=== PATIENT | female | born 1945 | race Caucasian/White ===

== ENCOUNTER 2022-12-10 15:56 | Outpatient (CLI) | payer MEDICARE, SELFPAY ==
[2022-12-10 16:34] LABS: Basophils Absolute Auto 0.1 K/mm3 (0.0-0.1); Eosinophils Absolute Auto 0.3 K/mm3 (0-0.3); Eosinophils Percent Auto 4.9 % (0-4.4); Hematocrit 40.4 % (37.0-47.0); Hemoglobin 12.7 g/dL (12.0-15.0); Immature Granulocyte Absolute 0.03 K/mm3 (0.00-0.031); Immature Granulocyte Percent A 0.4 % (0-0.5); Lymphocytes Absolute Auto 1.79 K/mm3 (0.9-3.2); Lymphocytes Percent Auto 26.8 % (18.3-44.2); Mean Corpuscular HGB Conc 31.4 g/dl (32-36); Mean Corpuscular Hemoglobin 28.3 pg (26-34); Mean Platelet Volume 10.9 fl (7.4-10.4); Monocytes Absolute Auto 0.6 K/mm3 (0.1-0.6); Monocytes Percent Auto 9.6 % (2.6-8.5); Neutrophils Absolute Auto 3.8 K/mm3 (1.3-6.7); Neutrophils Percent Auto 57.3 % (45.5-73.1); Platelet Count Result 299 k/mm3 (150-375); Red Blood Count 4.49 M/mm3 (4.2-5.4); Red Cell Distribution Width 16.1 % (11.5-14.5); White Blood Count 6.7 K/mm3 (4.5-10.0)
[2022-12-10 16:48] LABS: Hemoglobin A1C 5.7 % (<5.7)
[2022-12-10 17:00] LABS: Alanine Aminotransferase 18 U/L (6-35); Albumin Level 4.1 g/dL (3.5-5.1); Alkaline Phosphatase 62 U/L (38-126); Anion Gap 8 mmol/L (8-16); Aspartate Amino Transferase 38 U/L (14-36); Bilirubin,Total 0.6 mg/dL (0.2-1.3); Blood Urea Nitrogen 16 mg/dL (7-17); Calcium 9.6 mg/dL (8.4-10.2); Carbon Dioxide 27 mmol/L (22-30); Chloride 103 mmol/L (98-107); Cholesterol 261 mg/dL (0-200); Estimated Glomerular Filt Rate 54; Glucose 101 mg/dL (65-110); HDL Direct 50 mg/dL; Potassium 3.9 mmol/L (3.4-5.0); Sodium 138 mmol/L (137-145); Triglycerides 173 mg/dL (<150)
[2022-12-10 17:14] LABS: LDL Cholesterol Direct 145 mg/dL
[2022-12-10 17:29] LABS: Free T4 Free Thyroxine 1.07 ng/mL (0.78-2.19); Vitamin D 25 Hydroxy 24.9 ng/mL
[2022-12-10 18:06] LABS: Folic Acid 8.3 ng/mL (2.76->20)
== END 2022-12-10 15:57 | disposition home or self-care (01) ==
LOC: ANHLAB 15:59
PROVIDERS: PCP Internal Medicine; Visit Provider Internal Medicine
DX: Z13.29 Encounter for screening for other suspected endocrine disorder (principal); Z79.899 Other long term (current) drug therapy; E11.9 Type 2 diabetes mellitus without complications; Z13.220 Encounter for screening for lipoid disorders; E55.9 Vitamin D deficiency, unspecified; E53.8 Deficiency of other specified B group vitamins; N39.0 Urinary tract infection, site not specified; R30.0 Dysuria
CPT/HCPCS: 36415; 80053; 80061; 82306; 82607; 82746; 83036; 84439; 84443; 85025; 87077; 87086; 87186

== ENCOUNTER 2022-12-26 12:23 | Outpatient (RCR) | payer MEDICARE, SELFPAY ==
[2022-12-26 14:22] VITALS: BMI 46.6
== END 2023-03-17 11:58 | disposition home or self-care (01) ==
LOC: ANHWOC 12:23
PROVIDERS: PCP Internal Medicine; Visit Provider Internal Medicine
DX: I83.009 Varicose veins of unspecified lower extremity with ulcer of unspecified site (principal); L97.909 Non-pressure chronic ulcer of unspecified part of unspecified lower leg with unspecified severity
CPT/HCPCS: 99213; A9270; G0463

== ENCOUNTER 2023-04-03 16:31 | Inpatient (IN) | payer MEDICARE, SELFPAY ==
[2023-04-03] VITALS (13 sets, daily range): BP systolic 113–171; BP diastolic 66–83; PULSE 90–109; RESP 16–26; TEMP 36.7–37.6; O2SAT 90–100
--- NOTE | ~2023-04-03 | XR_ITS ---
EXAMINATION: XR chest 1V portable DATE: 04/03/2023 17:23 INDICATION: Coarse breath sounds. TECHNIQUE: frontal view of the chest was obtained. COMPARISON: Chest radiograph head CT dated 12/26/2003 FINDINGS: Coarse opacities in the infrahilar bilateral lower lung zones which could represent atelectasis pneum onia or mild pulmonary edema. No pleural effusion or pneumothorax. The cardiomediastinal silhouette i s within normal limits for AP technique. IMPRESSION: 1. Opacities at the infrahilar bilateral lower lung zones which could represent atelectasis, pneumoni a or mild pulmonary edema. Reviewed, dictated and finalized at location A. RDINGS LIBRARIAN IMPRESSION: 1. Opacities at the infrahilar bilateral lower lung zones which could represent atelectasis, pneumonia or mild pulmonary edema.
--- NOTE | ~2023-04-03 | CT_ITS ---
EXAMINATION: CT abdomen pelvis w con DATE: 04/03/2023 18:33 INDICATION: Abdominal distention. TECHNIQUE: Computed tomography (CT) of the abdomen and pelvis was performed with 100 mL Omnipaque 350 intravenous contrast. Automated exposure control and iterative reconstruction technique were employe d. The dose-length product was 1551.41 mGy-cm. COMPARISON: CT 02/28/2009 FINDINGS: The visualized portions of the lung bases demonstrate smooth septal thickening, consistent with mild pulmonary edema. There is mild atelectasis bilaterally. Cardiomegaly is noted. No pericardi al effusion. There are coronary artery calcifications. 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 There is mild right hilar lymphadenopathy. There is a small sliding hiatal herni a. The liver is normal. There are changes of cholecystectomy. The liver, pancreas, and adrenal glands are normal. There is cortical thinning of the kidneys. There is calcified atherosclerosis of the aor ta and many of the other arteries. There are no dilated loops of bowel. The appendix is normal. There is mild bilateral external iliac and right, right common iliac, and aortocaval lymphadenopathy. For example, an aortocaval node measures 19 x 14 mm. There is no free intraperitoneal fluid. There is sev ere lumbar spondylosis. There are bridging endplate osteophytes at multiple levels in the spine, cons istent with diffuse idiopathic skeletal hyperostosis (DISH). IMPRESSION: 1. Mild pelvic and right hilar lymphadenopathy, which may be reactive lymphadenopathy or lymphoma. 2. Mild pulmonary edema. 3. Small sliding hiatal hernia. Reviewed, dictated and finalized at location E. LEWARE CONSULTANT IMPRESSION: 1. Mild pelvic and right hilar lymphadenopathy, which may be reactive lymphaden opathy or lymphoma. 2. Mild pulmonary edema. 3. Small sliding hiatal hernia.
--- NOTE | ~2023-04-03 | CT_ITS ---
EXAMINATION: CTA chest PE protocol DATE: 04/03/2023 21:19 INDICATION: Hypoxia. TECHNIQUE: Computed tomography angiography (CTA) of the chest was performed with 100 mL Omnipaque-350 intravenous contrast timed to evaluate the pulmonary arteries. Coronal maximum intensity projection 3D-reconstructions were created by the technologist. Automated exposure control and iterative reconst ruction technique were employed. The dose-length product was 877.14 mGy-cm. COMPARISON: Head CT 12/26/2003 FINDINGS: There are smooth septal thickening and groundglass opacities in the lungs, consistent mild pulmonary edema. There is mild atelectasis bilaterally. No pleural effusion. Cardiomegaly is noted. T here are coronary artery calcifications. No pericardial effusion. The central pulmonary arteries are enlarged, consistent with pulmonary arterial hypertension. There is no pulmonary embolus. There is a small sliding hiatal hernia. There are changes of cholecystectomy. There are bridging endplate osteop hytes at multiple levels in the spine, consistent with diffuse idiopathic skeletal hyperostosis (DISH ). IMPRESSION: 1. No pulmonary embolus. Sensitivity is moderately decreased by motion artifact. 2. Mild pulmonary edema. Reviewed, dictated and finalized at location E. KING WHEEL TENDER IMPRESSION: 1. No pulmonary embolus. Sensitivity is moderately decreased by motion artifact . 2. Mild pulmonary edema.
--- NOTE | ~2023-04-03 | XR_ITS ---
EXAMINATION: XR tibia fibula RT 2V DATE: 04/03/2023 17:23 INDICATION: Right lower leg osteomyelitis. TECHNIQUE: 2 views of right tibia and fibula on 4 radiographs were obtained. COMPARISON: None. FINDINGS: There is varus angulation at the knee. No fracture. There is severe right knee osteoarthrit is. There is moderate midfoot osteoarthritis. There is a skin defect involving the lower leg. IMPRESSION: 1. No evidence of osteomyelitis. 2. Polyarticular osteoarthritis. Reviewed, dictated and finalized at location E. NISTRATIVE REPRESENTATIVE
--- NOTE | ~2023-04-03 | US_ITS ---
EXAMINATION: US venous doppler [facility] DATE: 04/05/2023 16:03 INDICATION: swelling/pain/erythema/elevated DDIMER . TECHNIQUE: Grayscale images without and with compression and Doppler images of the bilateral lower ex tremity veins were obtained. COMPARISON: 02/13/2009 FINDINGS: Poor visualization of the right calf veins due to edema. The right common femoral vein, profunda (juliann p) femoral vein, femoral vein, popliteal vein, and greater saphenous vein are patent. Enlarged lymph node in the right thigh. Poor visualization of the left calf veins due to edema. The left common femoral vein, profunda (deep) femoral vein, femoral vein, popliteal vein, and greater saphenous vein are patent. IMPRESSION: Limited visualization of the bilateral calf veins. Otherwise patent bilateral lower extremity veins. Enlarged lymph node in the right thigh. Reviewed, dictated and finalized at location K. INE SHOP SUPERVISOR IMPRESSION: Limited visualization of the bilateral calf veins. Otherwise patent bilateral l ower extremity veins. Enlarged lymph node in the right thigh.
--- NOTE | 2023-04-03 16:44 | ECG_ITS ---
Measurements Intervals [place] Rate: 104 P: -46 ND: 275 QRS: -42 QRSD: 109 T: 97 QT: 378 QTc: 498 Interpretive Statements SINUS TACHYCARDIA LEFT AXIS DEVIATION LEFT ATRIAL ENLARGEMENT ANTEROSEPTAL INFARCT, AGE INDETERMINATE CONSIDER INFERIOR INFARCT, AGE INDETERMINATE BORDERLINE ST-T WAVE ABNORMALITY- ANTEROLAT/HIGH LAT LEADS BASELINE ARTIFACT- I, II, III, AVR, AVL, AVF, V1-V6 ABNORMAL ECG NO PREVIOUS ECG AVAILABLE FOR COMPARISON Electronically Signed On 04-03-2023 18:57:15 JAVA SYSTEMS ANALYST by Antonio Lopez D.O.
--- NOTE | 2023-04-03 16:49 | ED.AMS ---
HPI - Altered Mental Status General Chief Complaint: Altered Mental Status Stated Complaint: ams Source: patient Mode of arrival: EMS Limitations: altered mental status History of Present Illness HPI narrative: Pt presents with report of altered mental status. Per RN, had told EMS she was more confused and was having difficulty walking with her walker. EMS had stated there was a complaint of nausea and vomiting. Patient states she has a history of diabetes. States her has not been sick. BS reported to have been 201. Patient smelled of foul smell of urine. She denies a history of heart failure but she is limited in her ability to tell health history. Denies being short of breath. Related Data Home Medications Medication Instructions Recorded Confirmed cholecalciferol (vitamin D3) 50 50 mcg PO MONTHLY 12/18/22 04/04/23 mcg (2,000 unit) capsule diphenhydramine HCl 25 mg tablet 12.5 mg PO PRN PRN Itching 01/07/23 04/04/23 (Benadryl Allergy) tramadol 50 mg tablet 50 mg PO Q4-6H PRN Pain 02/11/23 04/04/23 Allergies Allergy/AdvReac Type Severity Reaction Status Date / Time Sulfa (Sulfonamide AdvReac Intermediate Rash Verified 01/20/23 13:05 Antibiotics) 1 GENERAL ANESTHISIA LAST Allergy Unknown Other Uncoded 01/20/23 13:05 2 SURGS [facility] Past Medical History Medical History Benign essential hypertension Body mass index (BMI) 45.0-49.9, adult Change in heart murmur DJD (degenerative joint disease), multiple sites DM type 2 (diabetes mellitus, type 2) Encounter to establish care Essential hypertension Follow up Hyperlipidemia Hypothyroidism (acquired) On shelter drug therapy PHYLICIA on CPAP Pedal edema Stasis ulcer UTI (urinary tract infection) Vitamin D deficiency Surgical History Surgical History History of prolapse of bladder Family History Family History Mother Hypertension, Onset Age: 70 Cerebrovascular accident Patient's mother is Sibling Carcinoma of colon Other Family history of arthritis Family history of coronary artery disease Social History Social History Smoking status: Never smoker Second hand tobacco smoke exposure: No Smoking end date: 03/10/89 Alcohol intake: never Substance use: never Do You Feel Safe in your Home?: Yes Lack of Transportation: No Lack of Food: Never True Current Housing: I Have Housing Concerned About Future Housing: No Difficulty Paying Gas/Electric Bills: No Difficulty Paying for Meds: No Currently Unemployed: No Education: Don't Know Difficulty w/ Childcare or Family Care: No Spiritual care concerns: No Exam Narrative: GENERAL: well-nourished, and in no acute distress. HEAD: Normocephalic, atraumatic. EYES: Non injected, non icteric ENT: Nares clear, no rhinorrhea or epistaxis. NECK: Supple. CHEST: No respiratory distress. Coarse bilateral breath sounds though full assessment limited due to body habitus (unable to initially listen posteriorly) HEART: Regular rate and rhythm. . ABDOMEN: Soft, obese/ distended with some epigastric firmness but without guarding or rigidity on palpation EXTREMITIES: Legs initially bandaged, dressings taken down. Bilateral lower extremity edema and venous stasis with woody anterior aspect. Large posterior ulceration along right calf with foul smelling purulent drainage. SKIN: Warm, dry. NEURO: No focal deficits. Alert and oriented to self and location; states year is 2022. PSYCH: Normal mood and affect. Course Vital Signs Vital signs: Vital Signs Pulse Rate 93 04/03/23 16:30 Respiratory Rate 26 H 04/03/23 16:30 Blood Pressure 113/83 04/03/23 16:30 Pulse Oximetry 97 04/03/23 16:30 Oxygen Delivery Room
--- NOTE | 2023-04-03 17:13 | PC.NURSE ---
Pts glucose was 153
[2023-04-03 17:17] LABS: Glucose Point of Care 153 mg/dl (65-105)
[2023-04-03 17:36] LABS: Hematocrit 39.7 % (37.0-47.0); Hemoglobin 12.3 g/dL (12.0-15.0); Mean Corpuscular Hemoglobin 27.7 pg (26-34); Mean Corpuscular Volume 89.4 fl (80-100); Mean Platelet Volume 11.2 fl (7.4-10.4); Platelet Count Result 282 k/mm3 (150-375); Red Blood Count 4.44 M/mm3 (4.2-5.4); Red Cell Distribution Width 14.3 % (11.5-14.5); White Blood Count 21.6 K/mm3 (4.5-10.0)
[2023-04-03 17:48] LABS: Ammonia < 9 umol/L (9-30)
[2023-04-03 17:50] LABS: INR 1.1; Partial Thromboplastin Time 34.1 SECONDS (22.3-36.8)
[2023-04-03 17:55] LABS: Band Neutrophils Percent 10 % (0-6); Lymphocytes Absolute Manual 0.86 K/mm3 (1.1-4.5); Lymphocytes Percent Manual 4 % (18-44); Monocytes Absolute Manual 1.08 K/mm3 (0.1-0.90); Monocytes Percent Manual 5 % (3-9); Neutrophils Absolute Manual 19.65 K/mm3 (1.7-7.2); Neutrophils Percent Manual 81 % (46-73); Total Cells Counted 100
[2023-04-03 17:56] LABS: Hypochromasia 1+ (NORMAL); Large Platelets Present; Ovalocytes 1+ (NORMAL); Platelet Estimate Adequate (Adequate); Schistocytes None Seen (NORMAL)
[2023-04-03 17:58] LABS: Appearance Urine Turbid (Clear); Bacteria Urine 4+ /hpf; Bilirubin Urine Negative (Negative); Blood Urine 3+ (Negative); Color Urine Yellow (Yellow); Glucose Urine UA 3+ mg/dL (Negative); Ketones Urine 1+ mg/dL (Negative); Leukocyte Esterase Ur 2+ LEU/UL (Negative); Need Manual Microscopic Reviewed; Nitrate Urine Positive (Negative); Protein Urine 2+ mg/dL (Negative); Specific Grav Ur 1.031 (1.001-1.035); Squamous Epithelial Cell Urine Few /hpf (Few); Urobilinogen Urine 0.2 mg/dL (<2.0); WBC Clumps Urine Present /HPF; WBC Urine >100 /hpf; pH Urine 6.5 (5.0-9.0)
[2023-04-03 18:00] LABS: NT Pro B Type Natriuretic Pept 3320 pg/mL (19.9-100)
[2023-04-03 18:01] LABS: Add Urine Microscopic? YES
[2023-04-03 18:14] LABS: Alanine Aminotransferase 20 U/L (6-35); Albumin Level 3.9 g/dL (3.5-5.1); Alkaline Phosphatase 66 U/L (38-126); Anion Gap 11 mmol/L (8-16); Aspartate Amino Transferase 36 U/L (14-36); Bilirubin,Total 0.8 mg/dL (0.2-1.3); Blood Urea Nitrogen 16 mg/dL (7-17); Calcium 9.6 mg/dL (8.4-10.2); Carbon Dioxide 24 mmol/L (22-30); Chloride 101 mmol/L (98-107); Estimated CRCL calculation 49 ml/min; Estimated Glomerular Filt Rate 48; Glucose 175 mg/dL (65-110); Potassium 4.2 mmol/L (3.4-5.0); Sodium 136 mmol/L (137-145)
[2023-04-03 18:20] LABS: Influenza A QL RT-PCR Negative (Negative); Influenza B QL RT-PCR Negative (Negative); RSV RNA, RT-PCR Negative (Negative); SARS-CoV-2 RNA PCR Negative (Negative)
[2023-04-03 18:29] LABS: Erythrocyte Sedimentation Rate 59 mm/hr (0-20)
[2023-04-03] MEDS: FUROSEMIDE INJ 40 MG/4 ML VIAL IV PUSH (18:38)
--- NOTE | 2023-04-03 20:09 | PM.IMHP ---
H&P: HPI History of Present Illness Date/Time: 04/03/23 20:09 Chief Complaint: Altered metal Status Narrative: Patient is a 77-year-old female who presented to the ED for altered mental status. I am not sure how long this has been going on however symptoms seems to have been present for couple of days. ER reported limited history as patient is confused. She was evaluated in the ER and found to have leukocytosis of greater than 20,000, with absolute neutrophilia, UA is suggestive for UTI with positive nitrites, leukocyte esterase and greater than 100 wbc's and 4+ of active. She also has proBNP greater than [address] abdomen and pelvis showing possible pulmonary edema on lung bases. Patient has bilateral lower extremity venous stasis with stasis dermatitis and infected ulcer on the posterior right lower extremity. She was given ceftriaxone 1 g IV and furosemide 40 mg 1 time IV. I was consulted to admit this patient for further evaluation and management. Review of Systems Review of Systems: All systems reviewed & are unremarkable except as noted in HPI and below PMFSH Past Medical History Medical History (Updated 04/03/23 @ 20:15 by Merry Zamorano MD) Benign essential hypertension Body mass index (BMI) 45.0-49.9, adult Change in heart murmur DJD (degenerative joint disease), multiple sites DM type 2 (diabetes mellitus, type 2) Encounter to establish care Essential hypertension Follow up Hyperlipidemia Hypothyroidism (acquired) [facility] drug [facility] PHYLICIA on CPAP Pedal edema Stasis ulcer UTI (urinary tract infection) Vitamin D deficiency Surgical History Surgical History History of prolapse of bladder Family History Family History Mother Hypertension, Onset Age: 70 Cerebrovascular accident Patient's mother is Sibling Carcinoma of colon Other Family history of arthritis Family history of coronary artery disease Social History Social History Smoking status: Never smoker Second hand tobacco smoke exposure: No Smoking end date: 03/10/89 Alcohol intake: never Substance use: never Do You Feel Safe in your Home?: Yes Lack of Transportation: No Lack of Food: Never True Current Housing: I Have Housing Concerned About Future Housing: No Difficulty Paying Gas/Electric Bills: No Difficulty Paying for Meds: No Currently Unemployed: No Education: Don't Know Difficulty w/ Childcare or Family Care: No Spiritual care concerns: No Meds Home Medications and Allergies Home Medications Medication Instructions Recorded Confirmed Type cholecalciferol (vitamin D3) 50 50 mcg PO MONTHLY 12/18/22 04/04/23 History mcg (2,000 unit) capsule collagenase clostridium histo. 250 1 applic topical DAILY #90 grams 01/07/23 04/04/23 Rx unit/gram topical ointment (Santyl) diphenhydramine HCl 25 mg tablet 12.5 mg PO PRN PRN Itching 01/07/23 04/04/23 History (Benadryl Allergy) meloxicam 15 mg tablet 15 mg PO DAILY #90 tabs 01/14/23 04/04/23 Rx lisinopril 10 1 tablet PO DAILY #90 tabs 01/20/23 04/04/23 Rx mg-hydrochlorothiazide 12.5 mg tablet pravastatin 80 mg tablet 80 mg PO DAILY #90 tabs 01/20/23 04/04/23 Rx dapagliflozin propanediol 5 mg 5 mg PO DAILY #30 tabs 01/28/23 04/04/23 Rx tablet (Farxiga) tramadol 50 mg tablet 50 mg PO Q4-6H PRN Pain 02/11/23 04/04/23 History levothyroxine 200 mcg tablet 200 mcg PO DAILY #90 tabs 03/04/23 04/04/23 Rx clotrimazole-betamethasone 1 1 applic topical DAILY #45 grams 04/03/23 04/04/23 Rx %-0.05 % topical cream Allergies Allergy/AdvReac Type Severity Reaction Status Date / Time Sulfa (Sulfonamide AdvReac Intermediate Rash Verified 01/20/23 13:05 Antibiotics) 1 GENERAL ANESTHISIA LAST Allergy Unknown Other Uncoded 01/20/23 13:0
[2023-04-03 20:23] LABS: Lactic Acid Reflex 2.2 mmol/L (0.7-2.0)
[2023-04-03] MEDS: PIPERACILLN/TAZ 3.375GM/NS50ML 3.375 GM/50 ML BAG IVPB (20:29)
[2023-04-03 20:34] LABS: D Dimer 2.27 ug/mL (<0.48)
[2023-04-03 20:44] LABS: Magnesium 1.5 mg/dL (1.6-2.3)
[2023-04-03] MEDS: VANCOMYCIN 1,250 MG/NS 250 ML 1,250 MG/250 ML BAG 166.67 MG IVPB ×2 (20:52→23:07)
[2023-04-03 22:13] LABS: MRSA (PCR) DETECTED (NOT DETECTE)
[2023-04-03] MEDS: MAGNESIUM SULF 1 GM/D5W 100 ML 1 GM/100 ML BAG IVPB (22:34)
[2023-04-03 23:03] LABS: Lactic Acid Reflex 2.7 mmol/L (0.7-2.0)
[2023-04-03 23:08] LABS: Reflex Lactic Acid Yes or No Add Lactic
[2023-04-03 23:36] LABS: Glucose Point of Care 148 mg/dl (65-105)
--- NOTE | 2023-04-03 23:54 | ADMGEN ---
This patient, Racheal North, was admitted to Medical Room 345-. Patient/family oriented to hospital policies and general routines including ID bracelet, bed and alarms, visiting hours, pain management, procedures, bathroom and other care routines, personal items, smoking policy, room service/diet, and visiting hours. Information on how to activate the Rapid Response Team has been discussed. Patient/Family are encouraged to report perceived risks to care and to ask questions if they do not understand what they are told or what they should do.
[2023-04-04] VITALS (17 sets, daily range): BP systolic 121–147; BP diastolic 57–71; PULSE 72–105; RESP 16–21; TEMP 36.7–37.1; O2SAT 93–100; BMI 75.7
--- NOTE | 2023-04-04 | ECHO_ITS ---
Patient Info Name: Racheal North Age: 77 years : 1945 Gender: Female Ht: 63 in Wt: 260 lbs BSA: 2.36 m2 HR: 83 bpm BP: 121 / 62 mmHg Heart Rhythm: Sinus Rhythm Technical Quality: Fair Exam Date: 04/04/2023 10:56 AM Exam Location: Echo Lab Patient Status: Inpatient Admit Date: 04/03/2023 Staff Ordering Physician: Keesha Dupree APRN Lens Polisher: Jeanne Sauceda RDCS Attending Provider: Merry Zamorano MD Referring Physician: Joon MAYER; Exam Type: CA echo dop color flow w con Study Info Indications - pul edema, chf Complete two-dimensional, color flow and Doppler transthoracic echocardiogram is performed with contrast to opacify the left ventricle and to improve the deliniation of the left ventricle endocardial borders. Contrast/Agitated Saline Contrast/Ag. Saline: Definity Amount: 3.00 ml Summary 1. Technically somewhat challenging echo given patient's obesity. 2. Overall normal left ventricular systolic function with preserved systolic function and grade 1 diastolic noncompliance. 3. Sclerotic aortic valve which is not ideally visualized but by Doppler is stenotic with a valve area 1.0 cm2. 4. No aortic regurgitation. 5. Calcified mitral annulus. Left Ventricle Left ventricular chamber dimension is normal. Left ventricular systolic function is normal, estimated at 60-65%. There is moderate concentric increased left ventricular wall thickness. The left ventricular diastolic function is grade I diastolic dysfunction. Right Ventricle Right ventricular chamber dimension is normal. Left Atria Left atrial chamber dimension is normal. Right Atria Right atrial chamber dimension is normal. Aortic Valve The aortic valve is trileaflet. There is moderate aortic valve sclerosis. There is moderate to severe aortic valve stenosis with a peak velocity of 273.76 cm/s, mean gradient of 17 mmHg, and aortic valve area of 0.98 cm2. Pulmonic Valve The pulmonic valve is not well visualized. Mitral Valve The mitral valve has normal leaflets. The mitral valve annulus is mildly calcified. Tricuspid Valve The tricuspid valve leaflets are normal. Pericardium/Pleural The pericardium appears normal. Aorta The aortic root size at the sinus of Valsalva is normal. Left Ventricular Outflow Tract Name Value Normal LVOT 2D LVOT Diameter 1.84 cm LVOT Doppler LVOT Peak Gradient 3 mmHg LVOT Mean Gradient 2 mmHg LVOT VTI 19.64 cm LVOT VTI/AV VTI Ratio 0.37 LVOT Stroke Volume 52.33 ml LVOT CO 5.72 l/min LVOT CI 2.42 L/min/m2 Pulmonic Valve Name Value Normal RVOT Doppler RVOT Peak Gradient 5 mmHg PV Doppler
[2023-04-04] MEDS: MAGNESIUM SULF 2 GM/WATER 50ML 2 GM/50 ML BAG IVPB (00:08)
[2023-04-04] MEDS: PIPERACILLN/TAZ 3.375GM/NS50ML 3.375 GM/50 ML BAG IVPB ×2 (02:23→11:47)
[2023-04-04] MEDS: SODIUM CHLORIDE 0.9% IV 1,000 ML 999 ML IV CONT (04:16)
[2023-04-04 06:01] LABS: Basophils Absolute Auto 0.1 K/mm3 (0.0-0.1); Basophils Percent Auto 0.2 % (0.2-1.2); Hematocrit 33.4 % (37.0-47.0); Hemoglobin 10.7 g/dL (12.0-15.0); Immature Granulocyte Absolute 0.15 K/mm3 (0.00-0.031); Immature Granulocyte Percent A 0.7 % (0-0.5); Lymphocytes Absolute Auto 0.82 K/mm3 (0.9-3.2); Lymphocytes Percent Auto 3.6 % (18.3-44.2); Mean Corpuscular Hemoglobin 27.9 pg (26-34); Mean Corpuscular Volume 87.2 fl (80-100); Mean Platelet Volume 11.6 fl (7.4-10.4); Monocytes Percent Auto 4.5 % (2.6-8.5); Neutrophils Absolute Auto 20.6 K/mm3 (1.3-6.7); Platelet Count Result 249 k/mm3 (150-375); Red Blood Count 3.83 M/mm3 (4.2-5.4); Red Cell Distribution Width 14.2 % (11.5-14.5); White Blood Count 22.7 K/mm3 (4.5-10.0)
[2023-04-04 06:34] LABS: Anion Gap 9 mmol/L (8-16); Blood Urea Nitrogen 17 mg/dL (7-17); Calcium 8.5 mg/dL (8.4-10.2); Carbon Dioxide 23 mmol/L (22-30); Chloride 101 mmol/L (98-107); Estimated CRCL calculation 58 ml/min; Estimated Glomerular Filt Rate 40; Glucose 158 mg/dL (65-110); Potassium 3.5 mmol/L (3.4-5.0); Sodium 133 mmol/L (137-145)
[2023-04-04 06:45] LABS: Platelet Estimate Adequate (Adequate)
[2023-04-04 06:46] LABS: Hypochromasia 1+ (NORMAL); Ovalocytes 1+ (NORMAL); Schistocytes None Seen (NORMAL)
[2023-04-04 06:55] LABS: Magnesium 2.1 mg/dL (1.6-2.3)
[2023-04-04 06:56] LABS: Lactic Acid Reflex 2.4 mmol/L (0.7-2.0)
[2023-04-04 08:17] LABS: Hemoglobin A1C 6.7 % (<5.7)
[2023-04-04] MEDS: IPRATROPIUM 0.5 MG/ALBUTEROL SULFATE 2.5 MG AMPUL.NEB 3 ML INHALATION ×3 (08:26→20:16)
[2023-04-04 08:35] LABS: Glucose Point of Care 128 mg/dl (65-105)
[2023-04-04 11:17] LABS: Lactic Acid Reflex 2.4 mmol/L (0.7-2.0)
[2023-04-04] MEDS: PERFLUTREN LIPID MICROSPHERES 1.5 ML VIAL DILUTED TO 10 ML TOTAL VOLUME IV PUSH (11:35)
[2023-04-04] MEDS: CHOLECALCIFEROL 1,000 UNITS TABLET 2000 UNITS PO (11:43)
[2023-04-04] MEDS: PRAVASTATIN SODIUM 20 MG TABLET 80 MG PO (11:43)
[2023-04-04] MEDS: EMPAGLIFLOZIN 10 MG TABLET BY MOUTH (11:44)
[2023-04-04] MEDS: PANTOPRAZOLE 40 MG TABLET PO (11:45)
[2023-04-04] MEDS: FUROSEMIDE INJ 40 MG/4 ML VIAL IV PUSH ×2 (11:46→17:16)
[2023-04-04] MEDS: ENOXAPARIN 40 MG/0.4 ML SYRINGE SUB-Q (11:46)
--- NOTE | 2023-04-04 11:49 | IVDEFINITY ---
Prior to administration of IV Definity the patient was educated on the risks and benefits of the imaging enhancing agent including potential adverse side effects. The patient verbalized understanding. Allergies were verified. No exclusion criteria were identified and at least one of the following inclusion criteria were met: 1) physician request, 2) patient technically difficult to image (per the [place] [employer] Echocardi[employer] guidelines of two or more segments not discernable within the apical view), or 3) questionable left ventricular function. ?
[2023-04-04] MEDS: hydroCHLOROthiazide 12.5 MG CAPSULE PO (11:52)
[2023-04-04] MEDS: lisinopriL 10 MG TABLET PO (11:52)
[2023-04-04 12:28] LABS: Glucose Point of Care 143 mg/dl (65-105)
--- NOTE | 2023-04-04 13:57 | PM.IMPN ---
Progress Note: A&P Assessment and Plan (1) Altered mental status: Qualifiers: Altered mental status type: disorientation Qualified Code(s): R41.0 - Disorientation, unspecified Code(s): R41.82 - Altered mental status, unspecified Status: Acute (2) UTI (urinary tract infection): Qualifiers: Urinary tract infection type: acute cystitis Hematuria presence: without hematuria Qualified Code(s): N30.00 - Acute cystitis without hematuria Code(s): N39.0 - Urinary tract infection, site not specified Status: Acute (3) Foot ulcer, right: Qualifiers: Non-pressure ulcer stage: limited to breakdown of skin Qualified Code(s): L97.511 - Non-pressure chronic ulcer of other part of right foot limited to breakdown of skin Code(s): L97.519 - Non-pressure chronic ulcer of other part of right foot with unspecified severity Status: Acute (4) Severe sepsis with acute organ dysfunction: Code(s): A41.9 - Sepsis, unspecified organism; R65.20 - Severe sepsis without septic shock Status: Acute (5) Congestive heart failure (CHF): Code(s): I50.9 - Heart failure, unspecified Status: Acute Plan Severe Sepsis without septic shock -Secondary to UTI -empiric IV antibiotic therapy -Monitor lactic acid levels q6hr. still 2.4 trending flat -Repeat CBC, CMP. -Two sets of blood cultures gram+ cocci in chains -urine cultures pending previous ESBL -C-reactive proteins elevated -ESR >50 -PTT and PT, INR. -TTE chf/bacteremia -CTA pulmonary edema negative for PE. -Monitor albumin, monitoring of mental status. -glucose monitoring and control UTI -Urine cultures and blood cultures gram+ cocci -Continue IV hydration. = -Monitor vital signs. -Vanc/cefepime Bacteremia -gram + cocci in chains -likely secondary from UTI -cefepime/vanc MRSA+ nares will de-escalate pending cultures -I&D following -TTE pending R/O endocarditis CHF -Unknown type pending Echo -Murmur noted -pBNP >3000 -cardiology consulted -IV Lasix b.i.d. -monitor renal function during diuresis -echocardiogram pending -EKG -cTA pulmonary edema -incentive spirometer while awake -Lipid panel, TSH, liver function test. -Optimize Sandro inhibitors, beta-blockers, ARNI -Daily weight. -fluid restriction -Optimize blood pressure less than 130/80. -Fall risk assessment. Acute on chronic renal failure -pre-renal -Gentle IV hydration. -unknown baseline previous admission Cr 1.00 -Avoid nephrotoxic drugs. -Monitor antihypertensive drug therapy. -Routine CMP monitoring GFR. -Monitor electrolytes especially potassium. -Antibiotic doses depending on creatinine clearance. -Pharmacy does medications. -Cr trending up need to monitor closely may need to consult nephrology if worsens Diabetes -Accu-Cheks a.c. HS -new diagnosis -Hemoglobin A1c 6.7 -Diabetic diet -consult to dietitian -encourage lifestyle modifications and weight loss -Optimize Sandro inhibitors and statins. -Watch for hypoglycemia/hypoglycemic protocol ordered Venous stasis -BLE -elevated DDIMER -Venous dopplers pending -wound care consulted HTN -Stable -Resumed home medications -BP per protocol PHYLICIA -Resumed home CPAP settings Code status: Full code per patient DVT prophylaxis: Lovenox Stress ulcer prophylaxis: Protonix 40 daily PT/OT notes: PT/OT when stable to participate Disposition: Patient admitted to IMU for continued treatment of sepsis/CHF, patient with bacteremia may need terminal worker ABX therapy discharge planning will be determined once that is decided. Patient states she currently lives at home with her . -Patient's previous records reviewed on admission -ER notes reviewed in detail on admission -discussed all findings and current treatment plan with patient/Family/POA -Consultations reviewed for recommendations -Patient's disposition for
[2023-04-04 13:58] LABS: Reflex Lactic Acid Yes or No Add Lactic
[2023-04-04] MEDS: MEROPENEM 1 GM/NS 100 ML 1 GM/100 ML BAG IVPB ×2 (13:59→21:49)
[2023-04-04] MEDS: MORPHINE SULFATE (*CRX) 2 MG/ML INJ IV PUSH ×2 (14:17→20:16)
[2023-04-04] MEDS: LACTATED RINGERS 1,000 ML 75 ML IV CONT (14:25)
--- NOTE | 2023-04-04 15:09 | PM.CNCAR ---
Assessment and Plan Assessment and plan (1) Congestive heart failure (CHF): Code(s): I50.9 - Heart failure, unspecified Status: Acute Assessment and Plan: She is volume overloaded. Evidence of CHF with pulmonary edema noted on chest CTA, elevated NT proBNP. Likely diastolic in etiology. Agree with IV furosemide for now Fluid restriction Daily weights Strict intake and output BP control Echo is pending, further recommendations to follow (2) UTI (urinary tract infection): Qualifiers: Urinary tract infection type: acute cystitis Hematuria presence: without hematuria Qualified Code(s): N30.00 - Acute cystitis without hematuria Code(s): N39.0 - Urinary tract infection, site not specified Status: Acute Assessment and Plan: On abx per hospitalist (3) Hyperlipidemia: Qualifiers: Hyperlipidemia type: mixed hyperlipidemia Qualified Code(s): E78.2 - Mixed hyperlipidemia Code(s): E78.5 - Hyperlipidemia, unspecified Status: Acute Assessment and Plan: Continue statin (4) Essential hypertension: Code(s): I10 - Essential (primary) hypertension Status: Acute Assessment and Plan: Above goal. Will await echo results before altering antihypertensive regimen. (5) Murmur, heart: Code(s): R01.1 - Cardiac murmur, unspecified Status: Acute Assessment and Plan: This is not new. Echo pending. History of Present Illness History of Present Illness Consult date/time: 04/04/23 15:09 Reason For Visit: UTI,HF Exacerbation,Diabetic Ulcers/Wounds Narrative: Racheal North is a 77 year old female who states her only medical problem is diabetes. She presents to the hospital she states because her urged her to based on the fact that she was having trouble ambulating. According to her she was having difficulty ambulating because of pain and was unable to walk more than a couple of feet before having to rest. Cardiology is being asked to see her because of heart failure. She denies a history of any cardiac problems including heart failure but she is aware that she has a cardiac murmur and has been aware of that for many years. She denies any shortness of breath, palpitations, chest pain. She does have significant edema. Review of Systems Review of Systems: All systems reviewed & are unremarkable except as noted in HPI and below PMFSH Past Medical History Medical History Benign essential hypertension Body mass index (BMI) 45.0-49.9, adult Change in heart murmur DJD (degenerative joint disease), multiple sites DM type 2 (diabetes mellitus, type 2) Encounter to establish care Essential hypertension Follow up Hyperlipidemia Hypothyroidism (acquired) On long term care administrator drug therapy PHYLICIA on CPAP Pedal edema Stasis ulcer UTI (urinary tract infection) Vitamin D deficiency Surgical History Surgical History History of prolapse of bladder Family History Family History Mother Hypertension, Onset Age: 70 Cerebrovascular accident Patient's mother is Sibling Carcinoma of colon Other Family history of arthritis Family history of coronary artery disease Social History Social History Smoking status: Never smoker Second hand tobacco smoke exposure: No Smoking end date: 03/10/89 Alcohol intake: never Substance use: never Do You Feel Safe in your Home?: Yes Lack of Transportation: No Lack of Food: Never True Current Housing: I Have Housing Concerned About Future Housing: No Difficulty Paying Gas/Electric Bills: No Difficulty Paying for Meds: No Currently Unemployed: No Education: Don't Know Difficulty w/ Childcare or Family Care: No
[2023-04-04 15:17] LABS: Lactic Acid 2.4 mmol/L (0.7-2.0)
[2023-04-04] MEDS: COLLAGENASE OINT 30 GM TUBE 1 APPLIC TOPICAL (16:12)
[2023-04-04] MEDS: BETAMETHASONE/CLOTRIMAZOLE CR 15 GM TUBE 1 APPLIC TOPICAL (16:12)
[2023-04-04 17:33] LABS: Glucose Point of Care 110 mg/dl (65-105)
[2023-04-04 18:10] LABS: Lactic Acid Reflex 1.5 mmol/L (0.7-2.0)
[2023-04-04] MEDS: VANCOMYCIN 1,500 MG/NS 500 ML 1,500 MG/500 ML BAG 250 MG IVPB (20:17)
[2023-04-05] VITALS (18 sets, daily range): BP systolic 110–148; BP diastolic 59–86; PULSE 74–101; RESP 18–23; TEMP 36.6–36.7; O2SAT 93–100
[2023-04-05] MEDS: IPRATROPIUM 0.5 MG/ALBUTEROL SULFATE 2.5 MG AMPUL.NEB 3 ML INHALATION ×3 (02:03→20:39)
[2023-04-05 03:52] LABS: Glucose Point of Care 127 mg/dl (65-105)
[2023-04-05] MEDS: WATER FOR IRRIGATION, STERILE 1,000 ML BOTTLE 1000 ML (04:45)
[2023-04-05 05:39] LABS: Basophils Absolute Auto 0.1 K/mm3 (0.0-0.1); Basophils Percent Auto 0.4 % (0.2-1.2); Eosinophils Percent Auto 0.2 % (0-4.4); Hemoglobin 9.9 g/dL (12.0-15.0); Immature Granulocyte Percent A 0.6 % (0-0.5); Lymphocytes Absolute Auto 1.18 K/mm3 (0.9-3.2); Lymphocytes Percent Auto 7.3 % (18.3-44.2); Mean Corpuscular HGB Conc 31.9 g/dl (32-36); Mean Corpuscular Hemoglobin 27.7 pg (26-34); Mean Corpuscular Volume 86.8 fl (80-100); Mean Platelet Volume 11.1 fl (7.4-10.4); Monocytes Absolute Auto 0.9 K/mm3 (0.1-0.6); Monocytes Percent Auto 5.8 % (2.6-8.5); Neutrophils Absolute Auto 13.8 K/mm3 (1.3-6.7); Neutrophils Percent Auto 85.7 % (45.5-73.1); Platelet Count Result 217 k/mm3 (150-375); Red Blood Count 3.57 M/mm3 (4.2-5.4); Red Cell Distribution Width 14.3 % (11.5-14.5); White Blood Count 16.1 K/mm3 (4.5-10.0)
[2023-04-05] MEDS: MEROPENEM 1 GM/NS 100 ML 1 GM/100 ML BAG IVPB ×3 (05:45→21:46)
[2023-04-05 05:50] LABS: Alanine Aminotransferase 21 U/L (6-35); Alkaline Phosphatase 66 U/L (38-126); Anion Gap 8 mmol/L (8-16); Aspartate Amino Transferase 53 U/L (14-36); Bilirubin,Total 0.5 mg/dL (0.2-1.3); Blood Urea Nitrogen 27 mg/dL (7-17); Calcium 8.3 mg/dL (8.4-10.2); Carbon Dioxide 25 mmol/L (22-30); Chloride 99 mmol/L (98-107); Estimated CRCL calculation 47 ml/min; Estimated Glomerular Filt Rate 31; Glucose 105 mg/dL (65-110); Potassium 3.3 mmol/L (3.4-5.0); Sodium 132 mmol/L (137-145)
[2023-04-05] MEDS: LACTATED RINGERS 1,000 ML 75 ML IV CONT (06:46)
--- NOTE | 2023-04-05 07:19 | PC.NURSE ---
0540: CPAP REMOVED AND OXYGEN PLACED ON PATIENT @ 2L.
[2023-04-05] MEDS: FUROSEMIDE INJ 40 MG/4 ML VIAL IV PUSH ×2 (08:45→16:49)
[2023-04-05] MEDS: ENOXAPARIN 40 MG/0.4 ML SYRINGE SUB-Q (08:45)
[2023-04-05] MEDS: lisinopriL 10 MG TABLET PO (08:45)
[2023-04-05] MEDS: PRAVASTATIN SODIUM 20 MG TABLET 80 MG PO (08:45)
[2023-04-05] MEDS: hydroCHLOROthiazide 12.5 MG CAPSULE PO (08:46)
[2023-04-05] MEDS: CHOLECALCIFEROL 1,000 UNITS TABLET 2000 UNITS PO (08:46)
[2023-04-05] MEDS: EMPAGLIFLOZIN 10 MG TABLET BY MOUTH (08:46)
[2023-04-05] MEDS: PANTOPRAZOLE 40 MG TABLET PO (08:46)
--- NOTE | 2023-04-05 12:21 | PM.IMPN ---
Progress Note: A&P Assessment and Plan (1) Altered mental status: Qualifiers: Altered mental status type: unspecified Qualified Code(s): R41.82 - Altered mental status, unspecified Code(s): R41.82 - Altered mental status, unspecified Status: Acute (2) UTI (urinary tract infection): Qualifiers: Urinary tract infection type: acute cystitis Hematuria presence: without hematuria Qualified Code(s): N30.00 - Acute cystitis without hematuria Code(s): N39.0 - Urinary tract infection, site not specified Status: Acute (3) Foot ulcer, right: Qualifiers: Non-pressure ulcer stage: limited to breakdown of skin Qualified Code(s): L97.511 - Non-pressure chronic ulcer of other part of right foot limited to breakdown of skin Code(s): L97.519 - Non-pressure chronic ulcer of other part of right foot with unspecified severity Status: Acute (4) Severe sepsis with acute organ dysfunction: Code(s): A41.9 - Sepsis, unspecified organism; R65.20 - Severe sepsis without septic shock Status: Acute (5) Murmur, heart: Code(s): R01.1 - Cardiac murmur, unspecified Status: Acute (6) Acute diastolic (congestive) heart failure: Code(s): I50.31 - Acute diastolic (congestive) heart failure Status: Acute Plan Severe Sepsis without septic shock -Secondary to UTI -empiric IV antibiotic therapy IV meropenem -Monitor lactic acid levels q6hr. 1.5 today -Repeat CBC, CMP. -Two sets of blood cultures Strep A isolate -urine cultures pending previous ESBL -C-reactive proteins elevated -ESR >50 -PTT and PT, INR. -TTE chf/bacteremia -CTA pulmonary edema negative for PE. -Monitor albumin, monitoring of mental status. -glucose monitoring and control UTI -Urine cultures ECOLI -Continue IV hydration. = -Monitor vital signs. -meropenem pending sensitivity Bacteremia -Strep A -likely secondary from UTI -meropenem -I&D following -TTE pending R/O endocarditis Acute Diastolic congestive heart failure -LVEF 65%, moderate aortic stenosis -Murmur noted -pBNP >3000 -cardiology consulted -IV Lasix b.i.d. -monitor renal function during diuresis -cTA pulmonary edema -incentive spirometer while awake -Lipid panel, TSH, liver function test. -Optimize Sandro inhibitors, beta-blockers, ARNI -Daily weight. -fluid restriction -Optimize blood pressure less than 130/80. -Fall risk assessment. Acute on chronic renal failure -pre-renal -Gentle IV hydration. -unknown baseline previous admission Cr 1.00 -Avoid nephrotoxic drugs. -Monitor antihypertensive drug therapy. -Routine CMP monitoring GFR. -Monitor electrolytes especially potassium. -Antibiotic doses depending on creatinine clearance. -Pharmacy does medications. -Cr trending flat Diabetes -Accu-Cheks a.c. HS -new diagnosis -Hemoglobin A1c 6.7 -Diabetic diet -consult to dietitian -encourage lifestyle modifications and weight loss -Optimize Sandro inhibitors and statins. -Watch for hypoglycemia/hypoglycemic protocol ordered Venous stasis -BLE -elevated DDIMER -Venous dopplers pending -wound care consulted HTN -Stable -Resumed home medications -BP per protocol PHYLICIA -Resumed home CPAP settings Code status: Full code per patient DVT prophylaxis: Lovenox Stress ulcer prophylaxis: Protonix 40 daily PT/OT notes: PT/OT when stable to participate Disposition: Patient admitted to IMU for continued treatment of sepsis/CHF, patient with bacteremia IV ABX de-escalated for Strep A/Ecoli pending sensitivities -Patient's previous records reviewed on admission -ER notes reviewed in detail on admission -discussed all findings and current treatment plan with patient/Family/POA -Consultations reviewed for recommendations -Patient's disposition for safe discharge discussed with case operator Dictation performed by CELINA aBum direct speech re
[2023-04-05] MEDS: POTASSIUM CHLORIDE 20 MEQ PACKET (FOR LIQUID) 40 MEQ PO (14:18)
--- NOTE | 2023-04-05 15:05 | PM.PNCARD ---
Progress Note: A&P Assessment and Plan (1) Congestive heart failure (CHF): Qualifiers: Heart failure chronicity: unspecified Heart failure type: unspecified Qualified Code(s): I50.9 - Heart failure, unspecified Code(s): I50.9 - Heart failure, unspecified Status: Acute Assessment and Plan: She is volume overloaded. Evidence of CHF with pulmonary edema noted on chest CTA, elevated NT proBNP. Likely diastolic in etiology. May continue IV Lasix 40 mg twice daily. Discontinue hydrochlorothiazide for now. Preserved EF by echocardiogram although technically difficult study. Continue daily weights, accurate input and output to assess volume status. Discussed with Nursing. Very important as we are able. DVT prophylaxis Discussed with patient at length. All questions answered to her satisfaction. (2) Acute kidney injury: Code(s): N17.9 - Acute kidney failure, unspecified Status: Acute Assessment and Plan: Acute kidney injury likely multifactorial secondary to contrast induced nephropathy from CTA as well as medications and IV diuresis. Continue IV diuresis, however, will discontinue hydrochlorothiazide. Monitor renal function closely if significant progression avoid nephrotoxic agents need to hold lisinopril. Discussed with patient at length. (3) Essential hypertension: Code(s): I10 - Essential (primary) hypertension Status: Acute Assessment and Plan: Stable but hypertensive. Discontinue hydrochlorothiazide due to acute kidney injury and permit additional diuresis. May continue lisinopril 10 mg daily, however, may need to hold renal function significantly worsens. Monitor electrolytes and replete as warranted. (4) Murmur, heart: Code(s): R01.1 - Cardiac murmur, unspecified Status: Acute Assessment and Plan: Exam suggestive of probable moderate aortic stenosis. Echocardiogram technically difficult study aortic valve not well visualized peak velocity 2.7 m/sec valve area 1 cm2. This is not an acute issue. Outpatient follow-up in management. (5) UTI (urinary tract infection): Qualifiers: Urinary tract infection type: acute cystitis Hematuria presence: without hematuria Qualified Code(s): N30.00 - Acute cystitis without hematuria Code(s): N39.0 - Urinary tract infection, site not specified Status: Acute Assessment and Plan: IV antibiotic with meropenem per hospitalist service. (6) Hyperlipidemia: Qualifiers: Hyperlipidemia type: mixed hyperlipidemia Qualified Code(s): E78.2 - Mixed hyperlipidemia Code(s): E78.5 - Hyperlipidemia, unspecified Status: Acute Assessment and Plan: Continue pravastatin 80 mg daily. Subjective Date/time seen: Date of service: 04/05/23 15:05 Follow-up for probable diastolic heart failure Patient feels better overall. She is more alert. She thinks her breathing is better but she is not sure. She remains on oxygen but this is being weaned off as tolerated. Input and output not accurately reported due to frequent incontinence. Family at bedside. Discussed at length plan of care from cardiac perspective all questions answered to their satisfaction. No chest pain or palpitations. Review of Systems Review of Systems: All systems reviewed & are unremarkable except as noted in HPI and below Exam Const: General: comfortable, no acute distress, alert and awake Orientation/consciousness: patient oriented x3 Other: Obese HENMT: Head: normal to inspection Eyes: General: appearance normal, both eyes and all related structures Pupils: Equal, round and reactive pupils present Neck: Neck: normal visual inspection and supple Carotids: normal carotid upstroke Other: Unable to assess for JVD given body habitus Resp: Effort & Inspection: abnormal respiratory effort Auscultation: not clear to auscultation bilaterally, rales and diminis
[2023-04-05] MEDS: COLLAGENASE OINT 30 GM TUBE 1 APPLIC TOPICAL (15:40)
[2023-04-05] MEDS: BETAMETHASONE/CLOTRIMAZOLE CR 15 GM TUBE 1 APPLIC TOPICAL (15:40)
[2023-04-05 22:00] LABS: Glucose Point of Care 153 mg/dl (65-105)
[2023-04-06] VITALS (15 sets, daily range): BP systolic 138–160; BP diastolic 48–60; PULSE 69–111; RESP 16–20; TEMP 36.3–37.3; O2SAT 90–99
[2023-04-06] MEDS: IPRATROPIUM 0.5 MG/ALBUTEROL SULFATE 2.5 MG AMPUL.NEB 3 ML INHALATION ×4 (02:20→20:24)
[2023-04-06 06:19] LABS: Basophils Absolute Auto 0.1 K/mm3 (0.0-0.1); Basophils Percent Auto 0.5 % (0.2-1.2); Eosinophils Absolute Auto 0.2 K/mm3 (0-0.3); Eosinophils Percent Auto 1.8 % (0-4.4); Hematocrit 33.2 % (37.0-47.0); Hemoglobin 10.8 g/dL (12.0-15.0); Immature Granulocyte Absolute 0.11 K/mm3 (0.00-0.031); Immature Granulocyte Percent A 0.9 % (0-0.5); Lymphocytes Absolute Auto 0.89 K/mm3 (0.9-3.2); Lymphocytes Percent Auto 7.6 % (18.3-44.2); Mean Corpuscular HGB Conc 32.5 g/dl (32-36); Mean Corpuscular Hemoglobin 27.8 pg (26-34); Mean Corpuscular Volume 85.3 fl (80-100); Mean Platelet Volume 11.3 fl (7.4-10.4); Monocytes Percent Auto 8.3 % (2.6-8.5); Neutrophils Absolute Auto 9.4 K/mm3 (1.3-6.7); Neutrophils Percent Auto 80.9 % (45.5-73.1); Platelet Count Result 245 k/mm3 (150-375); Red Blood Count 3.89 M/mm3 (4.2-5.4); White Blood Count 11.7 K/mm3 (4.5-10.0)
[2023-04-06 06:28] LABS: Alanine Aminotransferase 21 U/L (6-35); Alkaline Phosphatase 64 U/L (38-126); Anion Gap 7 mmol/L (8-16); Aspartate Amino Transferase 48 U/L (14-36); Bilirubin,Total 0.6 mg/dL (0.2-1.3); Blood Urea Nitrogen 27 mg/dL (7-17); Calcium 8.7 mg/dL (8.4-10.2); Carbon Dioxide 30 mmol/L (22-30); Chloride 98 mmol/L (98-107); Estimated CRCL calculation 58 ml/min; Estimated Glomerular Filt Rate 40; Glucose 116 mg/dL (65-110); Sodium 135 mmol/L (137-145)
[2023-04-06] MEDS: MEROPENEM 1 GM/NS 100 ML 1 GM/100 ML BAG IVPB ×3 (06:55→20:27)
[2023-04-06] MEDS: ENOXAPARIN 40 MG/0.4 ML SYRINGE SUB-Q (10:42)
[2023-04-06] MEDS: PANTOPRAZOLE 40 MG TABLET PO (10:42)
[2023-04-06] MEDS: CHOLECALCIFEROL 1,000 UNITS TABLET 2000 UNITS PO (10:42)
[2023-04-06] MEDS: EMPAGLIFLOZIN 10 MG TABLET BY MOUTH (10:42)
[2023-04-06] MEDS: lisinopriL 10 MG TABLET PO (10:43)
[2023-04-06] MEDS: POTASSIUM CHLORIDE 20 MEQ PACKET (FOR LIQUID) 40 MEQ PO (10:43)
[2023-04-06] MEDS: PRAVASTATIN SODIUM 20 MG TABLET 80 MG PO (10:43)
--- NOTE | 2023-04-06 11:57 | PM.IMPN ---
Progress Note: A&P Assessment and Plan (1) Altered mental status: Qualifiers: Altered mental status type: unspecified Qualified Code(s): R41.82 - Altered mental status, unspecified Code(s): R41.82 - Altered mental status, unspecified Status: Acute (2) UTI (urinary tract infection): Qualifiers: Urinary tract infection type: acute cystitis Hematuria presence: without hematuria Qualified Code(s): N30.00 - Acute cystitis without hematuria Code(s): N39.0 - Urinary tract infection, site not specified Status: Acute (3) Foot ulcer, right: Qualifiers: Non-pressure ulcer stage: limited to breakdown of skin Qualified Code(s): L97.511 - Non-pressure chronic ulcer of other part of right foot limited to breakdown of skin Code(s): L97.519 - Non-pressure chronic ulcer of other part of right foot with unspecified severity Status: Acute (4) Severe sepsis with acute organ dysfunction: Code(s): A41.9 - Sepsis, unspecified organism; R65.20 - Severe sepsis without septic shock Status: Acute (5) Murmur, heart: Code(s): R01.1 - Cardiac murmur, unspecified Status: Acute (6) Acute diastolic (congestive) heart failure: Code(s): I50.31 - Acute diastolic (congestive) heart failure Status: Acute Plan Severe Sepsis without septic shock-RESOLVING -Secondary to UTI -empiric IV antibiotic therapy IV meropenem -Monitor lactic acid levels q6hr. 1.5 today -Repeat CBC, CMP. -Two sets of blood cultures Strep A isolate -urine cultures pending previous ESBL -C-reactive proteins elevated -ESR >50 -PTT and PT, INR. -TTE chf/bacteremia -CTA pulmonary edema negative for PE. -Monitor albumin, monitoring of mental status. -glucose monitoring and control UTI -Urine cultures ECOLI -Continue IV hydration. = -Monitor vital signs. -meropenem pending sensitivity of blood cultures (Macrobid PO will cover) Bacteremia -Strep A -meropenem pending F/U blood cultures -I&D following -TTE Acute Diastolic congestive heart failure -LVEF 65%, moderate aortic stenosis -Murmur noted -pBNP >3000 -cardiology consulted -IV Lasix b.i.d. -monitor renal function during diuresis -cTA pulmonary edema -incentive spirometer while awake -Lipid panel, TSH, liver function test. -Optimize Sandro inhibitors, beta-blockers, ARNI -Daily weight. -fluid restriction -Optimize blood pressure less than 130/80. -Fall risk assessment. Acute on chronic renal failure -pre-renal -Gentle IV hydration. -unknown baseline previous admission Cr 1.00 -Avoid nephrotoxic drugs. -Monitor antihypertensive drug therapy. -Routine CMP monitoring GFR. -Monitor electrolytes especially potassium. -Antibiotic doses depending on creatinine clearance. -Pharmacy does medications. -Cr trending flat Diabetes -Accu-Cheks a.c. HS -new diagnosis -Hemoglobin A1c 6.7 -Diabetic diet -consult to dietitian -encourage lifestyle modifications and weight loss -Optimize Sandro inhibitors and statins. -Watch for hypoglycemia/hypoglycemic protocol ordered Venous stasis -BLE -elevated DDIMER -Venous dopplers pending -wound care consulted HTN -Stable -Resumed home medications -BP per protocol PHYLICIA -Resumed home CPAP settings Code status: Full code per patient DVT prophylaxis: Lovenox Stress ulcer prophylaxis: Protonix 40 daily PT/OT notes: PT/OT when stable to participate Disposition: Patient admitted to IMU for continued treatment of sepsis/CHF, patient with bacteremia IV ABX de-escalated for Strep A/Ecoli pending 2nd set blood cultures -Patient's previous records reviewed on admission -ER notes reviewed in detail on admission -discussed all findings and current treatment plan with patient/Family/POA -Consultations reviewed for recommendations -Patient's disposition for safe discharge discussed with rn case management Dictation perform
[2023-04-06] MEDS: ACIDOPHILUS/BULGARICUS CHEWABLE TABLET 1 TABLET PO ×3 (12:17→20:27)
[2023-04-06] MEDS: BETAMETHASONE/CLOTRIMAZOLE CR 15 GM TUBE 1 APPLIC TOPICAL (15:16)
[2023-04-06] MEDS: COLLAGENASE OINT 30 GM TUBE 1 APPLIC TOPICAL (15:17)
[2023-04-06] MEDS: FUROSEMIDE INJ 40 MG/4 ML VIAL IV PUSH (17:02)
[2023-04-06] MEDS: LACTATED RINGERS 1,000 ML 75 ML IV CONT (20:25)
[2023-04-07] VITALS (14 sets, daily range): BP systolic 146–164; BP diastolic 52–72; PULSE 84–108; RESP 18; TEMP 36.4–36.9; O2SAT 91–96
--- NOTE | 2023-04-07 04:18 | PCRCNOTE ---
Patient very confused this morning stating she does not want her updraft treatment, nor does she want to use the cpap machine.
[2023-04-07] MEDS: MEROPENEM 1 GM/NS 100 ML 1 GM/100 ML BAG IVPB (05:36)
[2023-04-07 06:51] LABS: Basophils Absolute Auto 0.1 K/mm3 (0.0-0.1); Basophils Percent Auto 0.9 % (0.2-1.2); Eosinophils Absolute Auto 0.3 K/mm3 (0-0.3); Eosinophils Percent Auto 2.3 % (0-4.4); Hematocrit 35.8 % (37.0-47.0); Hemoglobin 11.4 g/dL (12.0-15.0); Immature Granulocyte Absolute 0.19 K/mm3 (0.00-0.031); Immature Granulocyte Percent A 1.7 % (0-0.5); Lymphocytes Absolute Auto 1.12 K/mm3 (0.9-3.2); Lymphocytes Percent Auto 9.9 % (18.3-44.2); Mean Corpuscular HGB Conc 31.8 g/dl (32-36); Mean Corpuscular Hemoglobin 27.7 pg (26-34); Mean Corpuscular Volume 86.9 fl (80-100); Mean Platelet Volume 10.9 fl (7.4-10.4); Monocytes Absolute Auto 1.1 K/mm3 (0.1-0.6); Monocytes Percent Auto 9.8 % (2.6-8.5); Neutrophils Absolute Auto 8.5 K/mm3 (1.3-6.7); Neutrophils Percent Auto 75.4 % (45.5-73.1); Platelet Count Result 304 k/mm3 (150-375); Red Blood Count 4.12 M/mm3 (4.2-5.4); Red Cell Distribution Width 13.9 % (11.5-14.5); White Blood Count 11.3 K/mm3 (4.5-10.0)
[2023-04-07 07:04] LABS: Alanine Aminotransferase 24 U/L (6-35); Albumin Level 3.3 g/dL (3.5-5.1); Alkaline Phosphatase 74 U/L (38-126); Anion Gap 6 mmol/L (8-16); Aspartate Amino Transferase 49 U/L (14-36); Bilirubin,Total 0.6 mg/dL (0.2-1.3); Blood Urea Nitrogen 18 mg/dL (7-17); Carbon Dioxide 32 mmol/L (22-30); Chloride 96 mmol/L (98-107); Estimated CRCL calculation 68 ml/min; Estimated Glomerular Filt Rate 48; Glucose 119 mg/dL (65-110); Potassium 2.9 mmol/L (3.4-5.0); Sodium 134 mmol/L (137-145)
[2023-04-07] MEDS: IPRATROPIUM 0.5 MG/ALBUTEROL SULFATE 2.5 MG AMPUL.NEB 3 ML INHALATION ×3 (08:40→19:20)
[2023-04-07] MEDS: PRAVASTATIN SODIUM 20 MG TABLET 80 MG PO (08:57)
[2023-04-07] MEDS: ACIDOPHILUS/BULGARICUS CHEWABLE TABLET 1 TABLET PO ×4 (08:57→20:24)
[2023-04-07] MEDS: lisinopriL 10 MG TABLET PO (08:57)
[2023-04-07] MEDS: EMPAGLIFLOZIN 10 MG TABLET BY MOUTH (08:57)
[2023-04-07] MEDS: CHOLECALCIFEROL 1,000 UNITS TABLET 2000 UNITS PO (08:57)
[2023-04-07] MEDS: POTASSIUM CHLORIDE 20 MEQ PACKET (FOR LIQUID) 40 MEQ PO (08:57)
[2023-04-07] MEDS: PANTOPRAZOLE 40 MG TABLET PO (08:57)
[2023-04-07] MEDS: ENOXAPARIN 40 MG/0.4 ML SYRINGE SUB-Q (08:58)
[2023-04-07] MEDS: FUROSEMIDE INJ 40 MG/4 ML VIAL IV PUSH (08:58)
[2023-04-07] MEDS: POTASSIUM CHLORIDE INJ 40 MEQ in SODIUM CHLORIDE 0.9% IV 500 ML 130 MEQ IVPB (08:58)
[2023-04-07] MEDS: BETAMETHASONE/CLOTRIMAZOLE CR 15 GM TUBE 1 APPLIC TOPICAL (09:10)
[2023-04-07] MEDS: COLLAGENASE OINT 30 GM TUBE 1 APPLIC TOPICAL (09:10)
--- NOTE | 2023-04-07 11:17 | PM.PNCARD ---
Progress Note: A&P Assessment and Plan (1) Congestive heart failure (CHF): Qualifiers: Heart failure chronicity: unspecified Heart failure type: unspecified Qualified Code(s): I50.9 - Heart failure, unspecified Code(s): I50.9 - Heart failure, unspecified Status: Acute Assessment and Plan: She is volume overloaded. Evidence of CHF with pulmonary edema noted on chest CTA, elevated NT proBNP. Likely diastolic in etiology. Preserved EF by echocardiogram although technically difficult study. Shift to p.o. furosemide today Will add spironolactone for diastolic dysfunction and also BP control Continue daily weights, accurate input and output to assess volume status. DVT prophylaxis Will arrange for outpatient follow up in our office. Cardiology will sign off. Please call with questions. (2) Acute kidney injury: Code(s): N17.9 - Acute kidney failure, unspecified Status: Acute Assessment and Plan: Acute kidney injury likely multifactorial secondary to contrast induced nephropathy from CTA as well as medications and IV diuresis. Improving. (3) Essential hypertension: Code(s): I10 - Essential (primary) hypertension Status: Acute Assessment and Plan: Stable but hypertensive. Continue lisinopril 10mg daily. Add spironolactone 12.5mg daily. (4) Murmur, heart: Code(s): R01.1 - Cardiac murmur, unspecified Status: Acute Assessment and Plan: Exam suggestive of probable moderate aortic stenosis. Echocardiogram technically difficult study aortic valve not well visualized peak velocity 2.7 m/sec valve area 1 cm2. This is not an acute issue. Outpatient follow-up in management. (5) UTI (urinary tract infection): Qualifiers: Hematuria presence: without hematuria Urinary tract infection type: acute cystitis Qualified Code(s): N30.00 - Acute cystitis without hematuria Code(s): N39.0 - Urinary tract infection, site not specified Status: Acute Assessment and Plan: IV antibiotic with meropenem per hospitalist service. (6) Hyperlipidemia: Qualifiers: Hyperlipidemia type: mixed hyperlipidemia Qualified Code(s): E78.2 - Mixed hyperlipidemia Code(s): E78.5 - Hyperlipidemia, unspecified Status: Acute Assessment and Plan: Continue pravastatin 80 mg daily. Subjective Date/time seen: 04/07/23 11:17 Interval history: Cardiology follow up for CHF She is feeling okay today. Denies any shortness of breath or chest pain. Still has some lower extremity edema but this is improving. No specific complaints, doesn't want to be woken up Review of Systems Review of Systems: All systems reviewed & are unremarkable except as noted in HPI and below Exam Const: General: comfortable, no acute distress and alert Orientation/consciousness: patient oriented x3 Other: Obese HENMT: Head: normal to inspection Eyes: General: appearance normal, both eyes and all related structures Pupils: Equal, round and reactive pupils present Neck: Neck: normal visual inspection and supple Carotids: normal carotid upstroke Other: Unable to assess for JVD given body habitus Resp: Effort & Inspection: normal respiratory effort Auscultation: not clear to auscultation bilaterally and diminished lung sounds Cardio: Rate: regular rate Rhythm: regular rhythm Heart sounds: S1 normal heart sound present, S2 normal heart sound present and Murmur heart sound present systolic GI: Auscultation: normal bowel sounds Urinary Catheter: Urinary Catheter: patent and draining Skin: General skin exam: No normal color and wounds noted Wounds: wounds noted Other: erythema noted bilateral lower extremities Neuro: General: patient oriented x3 Cranial nerves: Yes Equal, round and reactive pupils present Extrem: General: abnormal to inspection Other: edema, erythema, and wounds Psych:
--- NOTE | 2023-04-07 13:01 | PM.IMPN ---
Progress Note: A&P Assessment and Plan (1) Altered mental status: Qualifiers: Altered mental status type: unspecified Qualified Code(s): R41.82 - Altered mental status, unspecified Code(s): R41.82 - Altered mental status, unspecified Status: Acute (2) UTI (urinary tract infection): Qualifiers: Urinary tract infection type: acute cystitis Hematuria presence: without hematuria Qualified Code(s): N30.00 - Acute cystitis without hematuria Code(s): N39.0 - Urinary tract infection, site not specified Status: Acute (3) Foot ulcer, right: Qualifiers: Non-pressure ulcer stage: limited to breakdown of skin Qualified Code(s): L97.511 - Non-pressure chronic ulcer of other part of right foot limited to breakdown of skin Code(s): L97.519 - Non-pressure chronic ulcer of other part of right foot with unspecified severity Status: Acute (4) Severe sepsis with acute organ dysfunction: Code(s): A41.9 - Sepsis, unspecified organism; R65.20 - Severe sepsis without septic shock Status: Acute (5) Murmur, heart: Code(s): R01.1 - Cardiac murmur, unspecified Status: Acute (6) Acute diastolic (congestive) heart failure: Code(s): I50.31 - Acute diastolic (congestive) heart failure Status: Acute Plan Severe Sepsis without septic shock-RESOLVED -Secondary to UTI -empiric IV antibiotic therapy IV meropenem switched to Macrobid and Amoxicillin for cover UTI and bacteremia -Monitor lactic acid levels q6hr. 1.5 today -Repeat CBC, CMP. -Two sets of blood cultures Strep A isolate -urine cultures pending previous ESBL -C-reactive proteins elevated -ESR >50 -PTT and PT, INR. -TTE chf/bacteremia -CTA pulmonary edema negative for PE. -Monitor albumin, monitoring of mental status. -glucose monitoring and control UTI -Urine cultures ECOLI -Continue IV hydration. = -Monitor vital signs. -meropenem pending sensitivity of blood cultures (Macrobid PO will cover) Bacteremia -Strep A -meropenem de-escaleted to amoxicillin PO -2nd set NGTD -I&D following -TTE Acute Diastolic congestive heart failure -LVEF 65%, moderate aortic stenosis -Murmur noted -pBNP >3000 -cardiology consulted -IV Lasix b.i.d. switch to 40mg PO daily -wean of O2 -monitor renal function during diuresis -cTA pulmonary edema -incentive spirometer while awake -Lipid panel, TSH, liver function test. -Optimize Sandro inhibitors, beta-blockers, ARNI -Daily weight. -fluid restriction -Optimize blood pressure less than 130/80. -Fall risk assessment. Acute on chronic renal failure -pre-renal -Gentle IV hydration. -unknown baseline previous admission Cr 1.00 -Avoid nephrotoxic drugs. -Monitor antihypertensive drug therapy. -Routine CMP monitoring GFR. -Monitor electrolytes especially potassium. -Antibiotic doses depending on creatinine clearance. -Pharmacy does medications. -Cr trending flat Hypokalemia -2.9 -Replenished 40 PO/40 IV -Trend and replenish -Cardiac monitoring Diabetes -Accu-Cheks a.c. HS -new diagnosis -Hemoglobin A1c 6.7 -Diabetic diet -consult to dietitian -encourage lifestyle modifications and weight loss -Optimize Sandro inhibitors and statins. -Watch for hypoglycemia/hypoglycemic protocol ordered Venous stasis -BLE -elevated DDIMER -Venous dopplers pending -wound care consulted HTN -Stable -Resumed home medications -BP per protocol PHYLICIA -Resumed home CPAP settings Code status: Full code per patient DVT prophylaxis: Lovenox Stress ulcer prophylaxis: Protonix 40 daily PT/OT notes: PT/OT when stable to participate Disposition: Patient to discharge home tomorrow if no events overnight on PO ABX x 2. Will continue with HH -Patient's previous records reviewed on admission -ER notes reviewed in detail on admission -discussed all findings and current treatment plan with patient
[2023-04-07] MEDS: NITROFURANTOIN MONOHYD MACROCR 100 MG CAP PO ×2 (13:11→20:24)
[2023-04-07] MEDS: AMOXICILLIN 500 MG CAPSULE 1000 MG PO ×2 (13:11→20:24)
--- NOTE | 2023-04-07 14:28 | PCPTNOTE ---
Patient refused treatment this session due to patient wanting to rest. Educated patient on the importance of PT and encouraged patient to participate, patient continued to refuse. RN even went into room to educate patient on the importance of therapy and encouraged patient to participate in PT. Patient still continued to refuse.
--- NOTE | 2023-04-07 14:59 | PCOTNOTE ---
Attempted occupational therapy treatment. Patient was alseep with present. stated he did not want me to wake her up and that she refused therapy earlier today. RN notified. Following.
[2023-04-08] VITALS (12 sets, daily range): BP systolic 135–155; BP diastolic 70–79; PULSE 79–106; RESP 15–18; TEMP 36.8–36.9; O2SAT 92–98
--- NOTE | 2023-04-08 00:53 | PC.NURSE ---
When I came in [facility] I stressed to her again about telling us when she needs to go bathroom that she was going home in the morning. we asked several times through the night if she needed to go she kept saying no. Austin went to check her since she still hadnt went. She was soaked and had a BM again. I went in to help clean her up. I asked why she didnt tell us. She said she thought about it but decided to go to sleep instead. As Austin left the room she said to him to not wake her up to clean her that we could clean her in the morning. She has no intention to tell us when she needs to go.
[2023-04-08] MEDS: IPRATROPIUM 0.5 MG/ALBUTEROL SULFATE 2.5 MG AMPUL.NEB 3 ML INHALATION ×3 (01:13→12:59)
[2023-04-08] MEDS: AMOXICILLIN 500 MG CAPSULE 1000 MG PO (04:54)
[2023-04-08 06:21] LABS: Basophils Absolute Auto 0.1 K/mm3 (0.0-0.1); Basophils Percent Auto 0.8 % (0.2-1.2); Eosinophils Absolute Auto 0.2 K/mm3 (0-0.3); Eosinophils Percent Auto 1.3 % (0-4.4); Hemoglobin 11.4 g/dL (12.0-15.0); Immature Granulocyte Absolute 0.49 K/mm3 (0.00-0.031); Immature Granulocyte Percent A 3.3 % (0-0.5); Lymphocytes Absolute Auto 1.44 K/mm3 (0.9-3.2); Lymphocytes Percent Auto 9.8 % (18.3-44.2); Mean Corpuscular HGB Conc 32.6 g/dl (32-36); Mean Corpuscular Hemoglobin 27.7 pg (26-34); Mean Corpuscular Volume 85.2 fl (80-100); Mean Platelet Volume 11.1 fl (7.4-10.4); Monocytes Absolute Auto 1.3 K/mm3 (0.1-0.6); Monocytes Percent Auto 9.1 % (2.6-8.5); Neutrophils Absolute Auto 11.1 K/mm3 (1.3-6.7); Neutrophils Percent Auto 75.7 % (45.5-73.1); Nucleated Red Blood Cells Perc 0.1 % (0.0-0.2); Platelet Count Result 331 k/mm3 (150-375); Red Blood Count 4.11 M/mm3 (4.2-5.4); White Blood Count 14.7 K/mm3 (4.5-10.0)
--- NOTE | 2023-04-08 06:27 | PC.NURSE ---
Austin and I went in to clean up 345 again. She kept telling us she wouldnt of went bathroom in bed if people would of taken her bathroom and nobody would. She always said she didnt need to go when asked and never told anyone. Earlier she stated it was easier for her to just go how she was.
[2023-04-08 06:29] LABS: Alanine Aminotransferase 23 U/L (6-35); Albumin Level 3.3 g/dL (3.5-5.1); Alkaline Phosphatase 76 U/L (38-126); Anion Gap 10 mmol/L (8-16); Aspartate Amino Transferase 48 U/L (14-36); Bilirubin,Total 0.7 mg/dL (0.2-1.3); Blood Urea Nitrogen 13 mg/dL (7-17); Calcium 8.8 mg/dL (8.4-10.2); Carbon Dioxide 27 mmol/L (22-30); Chloride 96 mmol/L (98-107); Estimated CRCL calculation 51 ml/min; Estimated Glomerular Filt Rate 54; Glucose 147 mg/dL (65-110); Sodium 133 mmol/L (137-145)
[2023-04-08] MEDS: POTASSIUM CHLORIDE 20 MEQ PACKET (FOR LIQUID) 40 MEQ PO (08:27)
[2023-04-08] MEDS: PRAVASTATIN SODIUM 20 MG TABLET 80 MG PO (08:27)
[2023-04-08] MEDS: FUROSEMIDE 40 MG TABLET PO (08:27)
[2023-04-08] MEDS: ACIDOPHILUS/BULGARICUS CHEWABLE TABLET 1 TABLET PO (08:27)
[2023-04-08] MEDS: NITROFURANTOIN MONOHYD MACROCR 100 MG CAP PO (08:27)
[2023-04-08] MEDS: CHOLECALCIFEROL 1,000 UNITS TABLET 2000 UNITS PO (08:27)
[2023-04-08] MEDS: lisinopriL 10 MG TABLET PO (08:27)
[2023-04-08] MEDS: ENOXAPARIN 40 MG/0.4 ML SYRINGE SUB-Q (08:27)
[2023-04-08] MEDS: PANTOPRAZOLE 40 MG TABLET PO (08:28)
[2023-04-08] MEDS: POTASSIUM CHLORIDE INJ 40 MEQ in SODIUM CHLORIDE 0.9% IV 500 ML 130 MEQ IVPB (08:28)
[2023-04-08] MEDS: EMPAGLIFLOZIN 10 MG TABLET BY MOUTH (08:28)
[2023-04-08] MEDS: COLLAGENASE OINT 30 GM TUBE 1 APPLIC TOPICAL (08:29)
[2023-04-08] MEDS: BETAMETHASONE/CLOTRIMAZOLE CR 15 GM TUBE 1 APPLIC TOPICAL (08:29)
[2023-04-08] MEDS: SPIRONOLACTONE 12.5 MG TABLET PO (08:32)
--- NOTE | 2023-04-08 15:50 | PM.DS ---
DS: Admitting Diagnosis Discharge Date 04/08/23 Admitting Diagnosis Sepsis/UTI/AMS DS: Discharge Diagnosis Discharge Diagnosis (1) Altered mental status: Qualifiers: Altered mental status type: unspecified Qualified Code(s): R41.82 - Altered mental status, unspecified Code(s): R41.82 - Altered mental status, unspecified Status: Acute (2) UTI (urinary tract infection): Qualifiers: Urinary tract infection type: acute cystitis Hematuria presence: without hematuria Qualified Code(s): N30.00 - Acute cystitis without hematuria Code(s): N39.0 - Urinary tract infection, site not specified Status: Acute (3) Foot ulcer, right: Qualifiers: Non-pressure ulcer stage: limited to breakdown of skin Qualified Code(s): L97.511 - Non-pressure chronic ulcer of other part of right foot limited to breakdown of skin Code(s): L97.519 - Non-pressure chronic ulcer of other part of right foot with unspecified severity Status: Acute (4) Severe sepsis with acute organ dysfunction: Code(s): A41.9 - Sepsis, unspecified organism; R65.20 - Severe sepsis without septic shock Status: Acute (5) Murmur, heart: Code(s): R01.1 - Cardiac murmur, unspecified Status: Acute (6) Acute diastolic (congestive) heart failure: Code(s): I50.31 - Acute diastolic (congestive) heart failure Status: Acute Plan Severe Sepsis without septic shock-RESOLVED -Sepsis education given UTI Macrobid x 5days Bacteremia -Strep A -amoxicillin x 5 days -blood cultures cleared -Wound care BLE Acute Diastolic congestive heart failure -LVEF 65%, moderate aortic stenosis -Follow-up with Cardiology O/P -Optimize Sandro inhibitors, beta-blockers, ARNI -Daily weight. -fluid restriction -Optimize blood pressure less than 130/80. -Fall risk assessment. Diabetes discharge -educated patient on the need for blood sugar control for wound healing -Hemoglobin A1c goal less than 7 pending -lipid panels -Renal function liver panel every 3 months. . -Optimize Sandro inhibitors and statins. -Watch for hypoglycemia/hypoglycemic -BMI goals less than 25. -Yearly eye exam and foot exam. -Exercise, diet low-salt low carb. Weight loss. -Primary care physician foreign law consultant as an outpatient. Venous stasis -BLE -Educated on Wound Care HTN -Stable -Resumed home medications PHYLICIA -Resumed home CPAP DS: Summary Hospital Course Reason for hospitalization: Sepsis/UTI/CHF/Bacteremia Hospital Course: Interval history: Chief Complaint: Altered metal Status Narrative: Patient is a 77-year-old female who presented to the ED for altered mental status.? I am not sure how long this has been going on however symptoms seems to have been present for couple of days.? ER reported limited history as patient is confused.? She was evaluated in the ER and found to have leukocytosis of greater than 20,000, with absolute neutrophilia, UA is suggestive for UTI with positive nitrites, leukocyte esterase and greater than 100 wbc's and 4+ of active.? She also has proBNP greater than [address] abdomen and pelvis showing possible pulmonary edema on lung bases.? Patient has bilateral lower extremity venous stasis with stasis dermatitis and infected ulcer on the posterior right lower extremity.? She was given ceftriaxone 1 g IV and furosemide 40 mg 1 time IV.? I was consulted to admit this patient for further evaluation and management. 04/04:? Patient comfortable on assessment, CPAP on but answering questions.? Patient alert with lethargy.? Patient leukocytosis worsened from admission IV ABX adjusted.? Patient admitted for severe sepsis with UTI.? Patient with bacteremia blood cultures positive for gram+ cocci in chains I&D following.? CT showing pulmonary edema and elevated pBNP cardiology consulted for further recommendations will continue with IV lasix gentle hydration due to NELSON.? L
== END 2023-04-08 15:20 | disposition home health service (06) | DRG 689 ==
LOC: ANHED 19:08 → ANH2MED 22:54 → ANH3MED 22:59
PROVIDERS: Admitting Provider Student in an Organized Health Care Education/Training Program; Emergency Provider Student in an Organized Health Care Education/Training Program; PCP Internal Medicine; Visit Provider Nurse Practitioner Family
DX: A40.0 Sepsis due to streptococcus, group A; I50.31 Acute diastolic (congestive) heart failure; N30.00 Acute cystitis without hematuria; R65.20 Severe sepsis without septic shock; L97.219 Non-pressure chronic ulcer of right calf with unspecified severity; N17.9 Acute kidney failure, unspecified; I13.0 Hypertensive heart and chronic kidney disease with heart failure and stage 1 through stage 4 chronic kidney disease, or unspecified chronic kidney disease; B96.20 Unspecified Escherichia coli [E. coli] as the cause of diseases classified elsewhere; E11.22 Type 2 diabetes mellitus with diabetic chronic kidney disease; G47.33 Obstructive sleep apnea (adult) (pediatric); E03.9 Hypothyroidism, unspecified; E78.5 Hyperlipidemia, unspecified; E55.9 Vitamin D deficiency, unspecified; E78.2 Mixed hyperlipidemia; I87.2 Venous insufficiency (chronic) (peripheral); N18.9 Chronic kidney disease, unspecified; R01.1 Cardiac murmur, unspecified; Z28.21 Immunization not carried out because of patient refusal; Z11.52 Encounter for screening for COVID-19; Z99.89 Dependence on other enabling machines and devices
CPT/HCPCS: 36415; 36569; 71045; 71275; 73590; 74177; 80048; 80053; 81001; 82140; 82948; 83036; 83605; 83735; 83880; 84443; 85025; 85380; 85610; 85652; 85730; 86140; 87040; 87086; 87186; 87637; 87641; 93005; 93970; 94002; 94640; 96365; 96366; 96367; 96375; 97110; 97116; 97161; 97166; 97530; 97535; 99285; A9270; C1751; C8929; J0696; J1650; J1940; J2185; J2270; J2543; J3370; J3475; J3480; J7030; J7040; J7120; Q9957; Q9967

== ENCOUNTER 2023-04-09 11:25 | Inpatient (IN) | payer MEDICARE, SELFPAY ==
[2023-04-09] VITALS (15 sets, daily range): BP systolic 121–185; BP diastolic 54–101; PULSE 82–104; RESP 13–24; TEMP 36.3–37.2; O2SAT 96–99; BMI 47.3
--- NOTE | ~2023-04-09 | XR_ITS ---
EXAMINATION: XR chest 2V DATE: 04/09/2023 13:40 INDICATION: Weakness. Lower extremity swelling. TECHNIQUE: Frontal and lateral views of the chest were obtained. COMPARISON: Chest 2V 04/03/23, chest CT 04/03/2023 FINDINGS: There is a diffuse interstitial pattern, consistent mild pulmonary edema. No pleural effusi on or pneumothorax. Cardiomegaly is noted. Surgical clips in the right upper quadrant are likely from cholecystectomy. IMPRESSION: 1. Mild pulmonary edema. 2. Cardiomegaly. Reviewed, dictated and finalized at location A. [employer] OFFICER
--- NOTE | ~2023-04-09 | US_ITS ---
EXAMINATION: US arterial ankle brachial ind DATE: 04/09/2023 20:19 INDICATION: Peripheral arterial occlusive disease. Right lower limb ulcer. TECHNIQUE: Segmental pressures and plethysmographic and Doppler waveforms of the brachial and lower e xtremity arteries were obtained. COMPARISON: None. FINDINGS: Right and left brachial artery pressures of 154 mm Hg and 171 mm Hg, respectively, are concordant (no rmal difference <= 30 mmHg). The right ankle-brachial index (REI) is 0.71 (normal >= 0.9-1.0). The right great toe-brachial index (TBI) is 0.23 (normal >= 0.65). Arterial Doppler waveforms are biphasic with mildly broadened systoli c peaks and borderline delayed upstrokes at both the right posterior tibial and dorsalis pedis arteri es. The left REI is 0.71. The left TBI is 0.34. Arterial Doppler waveforms are biphasic with brisk systol ic upstrokes at both left posterior tibial and dorsalis pedis arteries. IMPRESSION: 1. Arterial occlusive disease to bilateral lower limbs with moderately decreased bilateral ABIs and m oderate to severely decreased right and moderately decreased left TBIs. Reviewed, dictated and finalized at location A. CUSHION SKIVING MACHINE OPERATOR IMPRESSION: 1. Arterial occlusive disease to bilateral lower limbs with moderately decrease d bilateral ABIs and moderate to severely decreased right and moderately decrea sed left TBIs.
--- NOTE | ~2023-04-09 | CT_ITS ---
EXAMINATION: CT LE RT w con DATE: 04/09/2023 13:22 INDICATION: Right lower limb cellulitis and infected ulcers. TECHNIQUE: Computed tomography (CT) of the right lower limb was performed with 100 mL Omnipaque 350 i ntravenous contrast. Automated exposure control and iterative reconstruction technique were employed. The dose-length product was 2122.35 mGy-cm. COMPARISON: CT abdomen and pelvis 04/03/2023 FINDINGS: There is aortocaval, right bilateral common iliac, right external iliac, and right inguinal lymphadenopathy. For example, a right inguinal node measures 4.3 x 2.4 cm. There is widespread subcu taneous space edema in right lower limb. There are dystrophic calcifications in the subcutaneous fat of the calf and thigh. There is calcified atherosclerosis of the aorta and many of the other arteries . There is moderate stenosis of proximal and distal right superficial femoral artery. There is at kvng st mild stenosis of the peroneal artery and posterior tibial artery, but sensitivity is decreased by non-CTA technique. There are skin defects in the calf. There is severe right knee osteoarthritis and moderate right hip osteoarthritis. There is severe lumbar spondylosis. IMPRESSION: 1. No abscess or evidence of osteomyelitis. 2. Pelvic lymphadenopathy, likely reactive. 3. Peripheral arterial disease. Reviewed, dictated and finalized at location A. SPRAYER
--- NOTE | 2023-04-09 11:31 | ECG_ITS ---
Measurements Intervals [place] Rate: 93 P: 50 CA: 177 QRS: -34 QRSD: 121 T: -43 QT: 401 QTc: 500 Interpretive Statements SINUS RHYTHM LEFT AXIS DEVIATION INCOMPLETE LEFT BUNDLE BRANCH BLOCK CONSIDER ANTERIOR INFARCT, AGE INDETERMINATE ST-T WAVE ABNORMALITY IN INFERIOR LEADS- CONSIDER ISCHEMIA BASELINE ARTIFACT- I, II, AVR, AVL, AVF, V4 ABNORMAL ECG COMPARED TO ECG 04/03/2023 16:40:05 SINUS RHYTHM NOW PRESENT INCOMPLETE LEFT BUNDLE BRANCH BLOCK NOW PRESENT ST-T WAVE ABNORMALITY NOW PRESENT Electronically Signed On 04-09-2023 12:49:05 ELECTRONIC VIDEO GAMES SERVICER by Antonio Lopez D.O.
--- NOTE | 2023-04-09 11:46 | ED.WEAKNESS ---
HPI - Weakness General Chief complaint: Weakness <RUSSEL Tena Last Filed: 04/09/23 18:26> Stated complaint: weakness <RUSSEL Tena Last Filed: 04/09/23 18:26> Time Seen by Provider: 04/09/23 11:26 <RUSSEL Tena Last Filed: 04/09/23 18:26> History of Present Illness HPI Narrative: 77-year-old female with a history of CHF, hypothyroidism, hypertension, type 2 diabetes reports for evaluation for generalized weakness. The patient was discharged from our hospital yesterday after she is admitted for altered mental status, UTI, pulmonary edema and AA infected diabetic ulcer on the right posterior leg. Patient reports today because she states that the redness has significantly worsened since she left the hospital yesterday. She states this area is very painful. She has not been able to ambulate since she was discharged secondary to the edema and pain. Denies fever, nausea or vomiting, chest pain or shortness of breath, abdominal pain. She does report a mild nonproductive cough. <RUSSEL Tena Last Filed: 04/09/23 18:26> Related Data Home medications: Home Medications Medication Instructions Recorded Confirmed cholecalciferol (vitamin D3) 50 50 mcg PO MONTHLY 12/18/22 04/04/23 mcg (2,000 unit) capsule diphenhydramine HCl 25 mg tablet 12.5 mg PO PRN PRN Itching 01/07/23 04/04/23 (Benadryl Allergy) tramadol 50 mg tablet 50 mg PO Q4-6H PRN Pain 02/11/23 04/04/23 <RUSSEL Tena Last Filed: 04/09/23 18:26> Allergies/Adverse reactions: Allergies Allergy/AdvReac Type Severity Reaction Status Date / Time Sulfa (Sulfonamide AdvReac Intermediate Rash Verified 04/09/23 15:50 Antibiotics) 1 GENERAL ANESTHISIA LAST Allergy Unknown Other Uncoded 04/09/23 15:50 2 SURGS <RUSSEL Tena Last Filed: 04/09/23 18:26> Review of Systems Review of Systems: CONSTITUTIONAL: Denies fever, chills, or sweats. EYES: Denies visual changes, redness, or discharge. ENT: Denies rhinorrhea, congestion, sore throat, or otalgia. CARDIOVASCULAR: Denies chest pain, palpitations, or edema. RESPIRATORY: Denies cough or dyspnea. GASTROINTESTINAL: Denies abdominal pain, nausea, vomiting, or diarrhea. GENITOURINARY: Denies dysuria or hematuria. SKIN: See HPI MUSCULOSKELETAL: Denies back pain, joint pain, or myalgia. NEUROLOGIC: Denies headache, numbness, or weakness. PSYCHIATRIC: Denies anxiety or depression. <Patrica Carlos PA-C - Last Filed: 04/09/23 18:26> FOR[facility]LY [facility] Past Medical History Medical History: Medical History (Updated 04/09/23 @ 18:16 by Gaby Davila PA-C) Aortic stenosis Benign essential hypertension Body mass index (BMI) 45.0-49.9, adult Chronic kidney disease, stage 3 Degenerative joint disease Diastolic congestive heart failure Essential hypertension Hyperlipidemia Hypothyroidism Obstructive sleep apnea on CPAP Peripheral vascular disease Type 2 diabetes mellitus Vitamin D deficiency <Patrica Carlos PA-C - Last Filed: 04/09/23 18:26> Surgical History Surgical History: Surgical History (Updated 04/09/23 @ 18:14 by Gaby Davila PA-C) History of bladder repair surgery For bladder prolapse. <Patrica Carlos PA-C - Last Filed: 04/09/23 18:26> Family History Family History: Family History Mother Hypertension, Onset Age: 70 Cerebrovascular accident Patient's mother is Sibling Carcinoma of colon Other Family history of arthritis Family history of coronary artery disease <Patrica Carlos PA-C - Last Filed: 04/09/23 18:26> Social History Social History: Social History (Updated 04/09/23 @ 18:15 by Gaby Davila PA-C) Social History: Surrogate medical decision maker: Dago North, spouse. Code status: Full code. Smoking status: Never smoker Second hand to
--- NOTE | 2023-04-09 12:08 | PC.NURSE ---
Pt found to be incontinent of bowel and bladder when undressing pt. Large amount of excoriation to dmitri area and buttocks. Redness extends down right leg. Skin sloughing noted to dmitri area.
[2023-04-09 12:22] LABS: Basophils Absolute Auto 0.1 K/mm3 (0.0-0.1); Eosinophils Absolute Auto 0.4 K/mm3 (0-0.3); Eosinophils Percent Auto 3.1 % (0-4.4); Hematocrit 39.7 % (37.0-47.0); Hemoglobin 12.6 g/dL (12.0-15.0); Immature Granulocyte Absolute 0.79 K/mm3 (0.00-0.031); Immature Granulocyte Percent A 5.6 % (0-0.5); Lymphocytes Absolute Auto 1.62 K/mm3 (0.9-3.2); Lymphocytes Percent Auto 11.5 % (18.3-44.2); Mean Corpuscular HGB Conc 31.7 g/dl (32-36); Mean Corpuscular Hemoglobin 27.2 pg (26-34); Mean Corpuscular Volume 85.7 fl (80-100); Mean Platelet Volume 10.9 fl (7.4-10.4); Monocytes Percent Auto 6.8 % (2.6-8.5); Neutrophils Absolute Auto 10.1 K/mm3 (1.3-6.7); Nucleated Red Blood Cells Perc 0.3 % (0.0-0.2); Platelet Count Result 418 k/mm3 (150-375); Red Blood Count 4.63 M/mm3 (4.2-5.4); Red Cell Distribution Width 14.2 % (11.5-14.5)
[2023-04-09] MEDS: metroNIDAZOLE 500 MG/ISO 100ML 500 MG/100 ML BAG 100 MG IVPB ×2 (12:22→20:39)
[2023-04-09 12:31] LABS: Appearance Urine Clear (Clear); Bacteria Urine None Seen /hpf; Bilirubin Urine Negative (Negative); Blood Urine 2+ (Negative); Color Urine Yellow (Yellow); Glucose Urine UA 3+ mg/dL (Negative); Ketones Urine Negative (Negative); Leukocyte Esterase Ur Negative LEU/UL (Negative); Nitrate Urine Negative (Negative); Protein Urine Trace mg/dL (Negative); RBC Urine 0-2 /hpf (0-2); Specific Grav Ur 1.011 (1.001-1.035); Squamous Epithelial Cell Urine None seen /hpf (Few); Urobilinogen Urine 0.2 mg/dL (<2.0); WBC Urine 0-5 /hpf; pH Urine 5.5 (5.0-9.0)
[2023-04-09] MEDS: VANCOMYCIN 1,250 MG/NS 250 ML 1,250 MG/250 ML BAG 166.67 MG IVPB ×2 (12:31→14:13)
[2023-04-09 12:32] LABS: INR 1.1; Lactic Acid Reflex 1.7 mmol/L (0.7-2.0); Prothrombin Time 14.1 Seconds (11.1-14.7)
[2023-04-09 12:34] LABS: Alanine Aminotransferase 30 U/L (6-35); Albumin Level 3.5 g/dL (3.5-5.1); Alkaline Phosphatase 89 U/L (38-126); Anion Gap 8 mmol/L (8-16); Aspartate Amino Transferase 61 U/L (14-36); Bilirubin,Total 0.5 mg/dL (0.2-1.3); Blood Urea Nitrogen 15 mg/dL (7-17); Calcium 9.3 mg/dL (8.4-10.2); Carbon Dioxide 32 mmol/L (22-30); Chloride 94 mmol/L (98-107); Estimated CRCL calculation 43 ml/min; Estimated Glomerular Filt Rate 44; Glucose 137 mg/dL (65-110); Potassium 3.7 mmol/L (3.4-5.0); Sodium 134 mmol/L (137-145)
[2023-04-09 12:42] LABS: NT Pro B Type Natriuretic Pept 3030 pg/mL (19.9-100)
[2023-04-09 12:54] LABS: Add Urine Microscopic? YES
[2023-04-09 13:00] LABS: CRP 24.6 mg/dL (<1.0)
[2023-04-09] MEDS: CEFEPIME 2 GM/NS 50 ML 2 GM/50 ML BAG IVPB (13:44)
[2023-04-09] MEDS: FUROSEMIDE INJ 40 MG/4 ML VIAL IV PUSH (14:15)
--- NOTE | 2023-04-09 17:55 | PM.IMHP ---
H&P: HPI History of Present Illness Date/Time: 04/09/23 15:00 Chief Complaint: Weakness. Narrative: This is a 77-year-old female with multiple medical problems including diastolic congestive heart failure, aortic stenosis, peripheral vascular disease hypertension, obstructive sleep apnea CPAP, morbid obesity, type 2 diabetes mellitus, and hypothyroidism who presented to the emergency department via EMS from for evaluation of weakness. She is known to hospitalist service from an admission last week at which time she presented with altered mental status, found to have evidence of fluid overload, a urinary tract infection, and a right calf ulcer. Blood cultures grew group A Streptococcus, presumably from the ulcer, and her urine culture grew multidrug resistant E coli. She was discharged with amoxicillin and nitrofurantoin; she was offered rehab on discharge but declined. Her and family friend report that it took them upwards of 2 hours to get her out of the car and into the home last evening. She has been weak, falling asleep easily, and is overall feeling unwell since that time. She came back in today after she noticed the redness around her right leg ulcer had spread significantly and is now tracking up into the groin. She has quite a bit of pain around ulcer with discomfort extending into the right groin. She denies fever and sweats but does report being chilled. Her appetite has not been great but she denies nausea and vomiting. Reports glucose has been running a bit high. In the ED: She was afebrile on arrival with stable vital signs. Labs were significant for WBC count of 14.0, sodium 134, chloride 94, creatinine 1.20, lactic acid 1.7, CRP 24.6, proBNP 3030. Right lower extremity CT showed no abscess or evidence of osteomyelitis, pelvic lymphadenopathy, and peripheral arterial disease. She received a dose of cefepime, metronidazole, and vancomycin and she is being admitted in this setting for treatment of right lower extremity cellulitis related to vascular ulcer. Review of Systems Review of Systems: Twelve systems were reviewed and are negative except for as per HPI. [facility]LY [facility] Past Medical History Medical History Aortic stenosis Benign essential hypertension Body mass index (BMI) 45.0-49.9, adult Chronic kidney disease, stage 3 Degenerative joint disease Diastolic congestive heart failure Essential hypertension Hyperlipidemia Hypothyroidism Obstructive sleep apnea on CPAP Peripheral vascular disease Type 2 diabetes mellitus Vitamin D deficiency Surgical History Surgical History History of bladder repair surgery For bladder prolapse. Family History Family History Mother Hypertension, Onset Age: 70 Cerebrovascular accident Patient's mother is Sibling Carcinoma of colon Other Family history of arthritis Family history of coronary artery disease Social History Social History Social History: Surrogate medical decision maker: Dago Mary Anne, spouse. Code status: Full code. Smoking status: Never smoker Second hand tobacco smoke exposure: No Alcohol intake: never Substance use: never Do You Feel Safe in your Home?: Yes Lack of Transportation: No Lack of Food: Never True Current Housing: I Have Housing Concerned About Future Housing: No Difficulty Paying Gas/Electric Bills: No Difficulty Paying for Meds: No Currently Unemployed: No Education: Trade/Vocational Certificate Difficulty w/ Childcare or Family Care: No Additional living arrangements comments: Lives with spouse in [place]. Spiritual care concerns: No Meds Home Medications and Allergies Home Medications Medication Instructions Recorded Confirmed Type cholec
--- NOTE | 2023-04-09 18:37 | ADMGEN ---
This patient, Racheal North, was admitted to [facility] Surg Room 327-01. Patient/family oriented to hospital policies and general routines including ID bracelet, bed and alarms, visiting hours, pain management, procedures, bathroom and other care routines, personal items, smoking policy, room service/diet, and visiting hours. Information on how to activate the Rapid Response Team has been discussed. Patient/Family are encouraged to report perceived risks to care and to ask questions if they do not understand what they are told or what they should do.
[2023-04-09] MEDS: FUROSEMIDE INJ 40 MG/4 ML VIAL 20 MG IV PUSH (23:19)
[2023-04-10] MEDS: CEFEPIME 1 GM/NS 50 ML 1 GM/50 ML BAG IVPB ×2 (01:02→15:00)
--- NOTE | 2023-04-10 03:44 | PCRCNOTE ---
RT provided patient with cpap late, therefore pt did not want to mess with it. Patient will wear tonight (04/10/23).
[2023-04-10 05:45] VITALS: BP 145/65; PULSE 91; RESP 20; TEMP 36; O2SAT 95
[2023-04-10] MEDS: metroNIDAZOLE 500 MG/ISO 100ML 500 MG/100 ML BAG 100 MG IVPB ×3 (05:52→22:58)
[2023-04-10] MEDS: LEVOTHYROXINE SODIUM 100 MCG TABLET 200 MCG PO (05:52)
[2023-04-10 08:18] LABS: Glucose Point of Care 116 mg/dl (65-105)
[2023-04-10 08:26] LABS: Hematocrit 34.1 % (37.0-47.0); Hemoglobin 11.1 g/dL (12.0-15.0); Mean Corpuscular HGB Conc 32.6 g/dl (32-36); Mean Corpuscular Hemoglobin 27.6 pg (26-34); Mean Corpuscular Volume 84.8 fl (80-100); Mean Platelet Volume 10.8 fl (7.4-10.4); Platelet Count Result 440 k/mm3 (150-375); Red Blood Count 4.02 M/mm3 (4.2-5.4); Red Cell Distribution Width 14.3 % (11.5-14.5); White Blood Count 13.2 K/mm3 (4.5-10.0)
[2023-04-10 08:48] LABS: Anion Gap 9 mmol/L (8-16); Blood Urea Nitrogen 13 mg/dL (7-17); Calcium 8.4 mg/dL (8.4-10.2); Carbon Dioxide 28 mmol/L (22-30); Chloride 96 mmol/L (98-107); Estimated CRCL calculation 52 ml/min; Estimated Glomerular Filt Rate 54; Glucose 113 mg/dL (65-110); Magnesium 1.9 mg/dL (1.6-2.3); Potassium 3.1 mmol/L (3.4-5.0); Sodium 133 mmol/L (137-145)
[2023-04-10] MEDS: EMPAGLIFLOZIN 10 MG TABLET PO (08:50)
[2023-04-10] MEDS: PRAVASTATIN SODIUM 20 MG TABLET 80 MG PO (08:50)
[2023-04-10] MEDS: hydroCHLOROthiazide 12.5 MG CAPSULE PO (08:50)
[2023-04-10] MEDS: POTASSIUM CHLORIDE 20 MEQ PACKET (FOR LIQUID) 40 MEQ PO (08:50)
[2023-04-10] MEDS: lisinopriL 10 MG TABLET PO (08:51)
[2023-04-10] MEDS: SPIRONOLACTONE 25 MG TABLET PO (08:51)
[2023-04-10] MEDS: FUROSEMIDE 40 MG TABLET PO (08:51)
[2023-04-10] MEDS: ACIDOPHILUS/BULGARICUS CHEWABLE TABLET 1 TABLET PO (08:51)
[2023-04-10] MEDS: ENOXAPARIN 40 MG/0.4 ML SYRINGE SUB-Q (09:02)
[2023-04-10 09:03] VITALS: BP 127/58; PULSE 94; RESP 14; O2SAT 99
[2023-04-10] MEDS: traMADol HCL (*CRX) 50 MG TABLET PO (11:11)
[2023-04-10 11:48] LABS: Glucose Point of Care 152 mg/dl (65-105)
[2023-04-10] MEDS: COLLAGENASE OINT 30 GM TUBE 1 APPLIC TOPICAL (12:59)
[2023-04-10] MEDS: VANCOMYCIN 1,500 MG/NS 500 ML 1,500 MG/500 ML BAG 250 MG IVPB (12:59)
--- NOTE | 2023-04-10 13:29 | P.PNIM_ITS ---
Progress Note: A&P Assessment and Plan (1) Cellulitis of right lower extremity: Code(s): L03.115 - Cellulitis of right lower limb Status: Acute Assessment and Plan: * Source appears to be the ulcer on the right calf. * She has been started on cefepime, metronidazole, and vancomycin per antibiotic stewardship recommendations. * Wound care ordered. (2) Diabetic calf ulcer: Code(s): E11.622 - Type 2 diabetes mellitus with other skin ulcer; L97.209 - Non-pressure chronic ulcer of unspecified calf with unspecified severity Status: Acute Assessment and Plan: * Probable vascular lesion on this is been chronic for quite some time and is now worsening. * Lower extremity CT showed evidence of peripheral vascular disease * REI: arterial occlusive disease to bilateral lower limbs with moderately decreased bilateral ABIs and moderately to severe decreased right and moderately decreased left TBIs * Lower extremity CT scan with no evidence of abscess or osteomyelitis (3) Diastolic congestive heart failure: Code(s): I50.30 - Unspecified diastolic (congestive) heart failure Status: Acute Assessment and Plan: She had significant lower extremity pitting edema in the ED and was give IV lasix. * Edema improved and p.o. Lasix was resumed. * Monitor volume status, renal function, and electrolytes closely. * Daily weights. (4) Chronic kidney disease, stage 3: Code(s): N18.30 - Chronic kidney disease, stage 3 unspecified Status: Acute Assessment and Plan: Creatinine is near her baseline. (5) Peripheral vascular disease: Code(s): I73.9 - Peripheral vascular disease, unspecified Status: Acute Assessment and Plan: * Peripheral vascular disease noted on right lower extremity CT and evident on exam. * ABIs of the lower extremities show moderately decreased bilateral ABIs and moderate to severe decreased right TBI and moderately decreased left TBI. * Referral to vascular surgery at discharge. * Patient started on aspirin (6) Type 2 diabetes mellitus: Code(s): E11.9 - Type 2 diabetes mellitus without complications Status: Acute Assessment and Plan: * Continue Farxiga. * Recent hemoglobin A1c was 6.7%. * Initiate sliding scale insulin, Accu-Cheks, and hypoglycemic protocol. (7) Obstructive sleep apnea on CPAP: Code(s): G47.33 - Obstructive sleep apnea (adult) (pediatric) Status: Acute Assessment and Plan: CPAP will be provided for the patient to use while hospitalized. (8) Hypothyroidism: Code(s): E03.9 - Hypothyroidism, unspecified Status: Acute Assessment and Plan: Continue levothyroxine; recent TSH was within normal limits. (9) Aortic stenosis: Code(s): I35.0 - Nonrheumatic aortic (valve) stenosis Status: Acute Assessment and Plan: * Moderate to severe aortic valve stenosis on echocardiogram last week with a valve area of 0.982 centimeter squared. * This will need to be followed up closely as an outpatient and she will likely need referral to CTS. Subjective Date/time seen: 04/10/23 13:29 Interval history: Patient states that she has increased weakness and right lower extremity pain. It was encouraged that patient do rehab last time she was hospitalized although she refused at that time. Patient was discharged home 2 days ago and could not walk
--- NOTE | 2023-04-10 13:29 | PM.IMPN ---
Progress Note: A&P Assessment and Plan (1) Cellulitis of right lower extremity: Code(s): L03.115 - Cellulitis of right lower limb Status: Acute Assessment and Plan: Source appears to be the ulcer on the right calf. She has been started on cefepime, metronidazole, and vancomycin per antibiotic stewardship recommendations. Wound care ordered. (2) Diabetic calf ulcer: Code(s): E11.622 - Type 2 diabetes mellitus with other skin ulcer; L97.209 - Non-pressure chronic ulcer of unspecified calf with unspecified severity Status: Acute Assessment and Plan: Probable vascular lesion on this is been chronic for quite some time and is now worsening. Lower extremity CT showed evidence of peripheral vascular disease REI: arterial occlusive disease to bilateral lower limbs with moderately decreased bilateral ABIs and moderately to severe decreased right and moderately decreased left TBIs Lower extremity CT scan with no evidence of abscess or osteomyelitis (3) Diastolic congestive heart failure: Code(s): I50.30 - Unspecified diastolic (congestive) heart failure Status: Acute Assessment and Plan: She had significant lower extremity pitting edema in the ED and was give IV lasix. Edema improved and p.o. Lasix was resumed. Monitor volume status, renal function, and electrolytes closely. Daily weights. (4) Chronic kidney disease, stage 3: Code(s): N18.30 - Chronic kidney disease, stage 3 unspecified Status: Acute Assessment and Plan: Creatinine is near her baseline. (5) Peripheral vascular disease: Code(s): I73.9 - Peripheral vascular disease, unspecified Status: Acute Assessment and Plan: Peripheral vascular disease noted on right lower extremity CT and evident on exam. ABIs of the lower extremities show moderately decreased bilateral ABIs and moderate to severe decreased right TBI and moderately decreased left TBI. Referral to vascular surgery at discharge. Patient started on aspirin (6) Type 2 diabetes mellitus: Code(s): E11.9 - Type 2 diabetes mellitus without complications Status: Acute Assessment and Plan: Continue Farxiga. Recent hemoglobin A1c was 6.7%. Initiate sliding scale insulin, Accu-Cheks, and hypoglycemic protocol. (7) Obstructive sleep apnea on CPAP: Code(s): G47.33 - Obstructive sleep apnea (adult) (pediatric) Status: Acute Assessment and Plan: CPAP will be provided for the patient to use while hospitalized. (8) Hypothyroidism: Code(s): E03.9 - Hypothyroidism, unspecified Status: Acute Assessment and Plan: Continue levothyroxine; recent TSH was within normal limits. (9) Aortic stenosis: Code(s): I35.0 - Nonrheumatic aortic (valve) stenosis Status: Acute Assessment and Plan: Moderate to severe aortic valve stenosis on echocardiogram last week with a valve area of 0.982 centimeter squared. This will need to be followed up closely as an outpatient and she will likely need referral to CTS. Subjective Date/time seen: 04/10/23 13:29 Interval history: Patient states that she has increased weakness and right lower extremity pain. It was encouraged that patient do rehab last time she was hospitalized although she refused at that time. Patient was discharged home 2 days ago and could not walk that she return to the hospital. She does have what appears to be a cellulitis but more importantly patient has been hospitalized for several days and would highly benefit from an SNF or inpatient rehab. Patient has been started on IV antibiotic therapy for right lower extremity cellulitis as well as wound care. PT and OT ordered on the patient for placement. In-depth conversation about importance of rehab discussed with patient, patient's and daughter. Exam Narrative: GENERAL: Comf
[2023-04-10 14:00] VITALS: BP 113/61; PULSE 91; RESP 14; TEMP 36.2; O2SAT 97
[2023-04-10] MEDS: ASPIRIN 81 MG ENTERIC TABLET PO (14:37)
[2023-04-10 16:40] LABS: Glucose Point of Care 135 mg/dl (65-105)
[2023-04-10 20:25] VITALS: BP 134/55; PULSE 90; RESP 20; TEMP 36.4; O2SAT 100
[2023-04-10 20:31] LABS: Glucose Point of Care 144 mg/dl (65-105)
[2023-04-11] MEDS: CEFEPIME 1 GM/NS 50 ML 1 GM/50 ML BAG IVPB ×2 (02:09→13:07)
[2023-04-11 05:02] VITALS: BP 120/52; PULSE 87; RESP 20; TEMP 36.2; O2SAT 96
[2023-04-11] MEDS: metroNIDAZOLE 500 MG/ISO 100ML 500 MG/100 ML BAG 100 MG IVPB ×2 (06:07→13:07)
[2023-04-11] MEDS: LEVOTHYROXINE SODIUM 100 MCG TABLET 200 MCG PO (06:07)
[2023-04-11 07:06] LABS: Basophils Absolute Auto 0.1 K/mm3 (0.0-0.1); Eosinophils Absolute Auto 0.6 K/mm3 (0-0.3); Hematocrit 32.4 % (37.0-47.0); Hemoglobin 10.1 g/dL (12.0-15.0); Immature Granulocyte Absolute 0.37 K/mm3 (0.00-0.031); Immature Granulocyte Percent A 3.2 % (0-0.5); Lymphocytes Absolute Auto 1.62 K/mm3 (0.9-3.2); Mean Corpuscular HGB Conc 31.2 g/dl (32-36); Mean Corpuscular Hemoglobin 27.2 pg (26-34); Mean Corpuscular Volume 87.1 fl (80-100); Mean Platelet Volume 10.8 fl (7.4-10.4); Monocytes Absolute Auto 0.8 K/mm3 (0.1-0.6); Monocytes Percent Auto 6.6 % (2.6-8.5); Neutrophils Absolute Auto 8.1 K/mm3 (1.3-6.7); Neutrophils Percent Auto 70.2 % (45.5-73.1); Nucleated Red Blood Cells Perc 0.2 % (0.0-0.2); Platelet Count Result 422 k/mm3 (150-375); Red Blood Count 3.72 M/mm3 (4.2-5.4); Red Cell Distribution Width 14.4 % (11.5-14.5); White Blood Count 11.6 K/mm3 (4.5-10.0)
[2023-04-11 07:20] LABS: Alanine Aminotransferase 23 U/L (6-35); Albumin Level 2.9 g/dL (3.5-5.1); Alkaline Phosphatase 64 U/L (38-126); Anion Gap 7 mmol/L (8-16); Aspartate Amino Transferase 39 U/L (14-36); Bilirubin,Total 0.5 mg/dL (0.2-1.3); Blood Urea Nitrogen 12 mg/dL (7-17); Calcium 8.1 mg/dL (8.4-10.2); Carbon Dioxide 29 mmol/L (22-30); Chloride 96 mmol/L (98-107); Estimated CRCL calculation 47 ml/min; Estimated Glomerular Filt Rate 48; Glucose 104 mg/dL (65-110); Potassium 2.9 mmol/L (3.4-5.0); Sodium 132 mmol/L (137-145)
[2023-04-11 07:31] LABS: Glucose Point of Care 108 mg/dl (65-105)
[2023-04-11] MEDS: ENOXAPARIN 40 MG/0.4 ML SYRINGE SUB-Q ×2 (08:45→20:25)
[2023-04-11] MEDS: POTASSIUM CHLORIDE 20 MEQ PACKET (FOR LIQUID) 40 MEQ PO ×2 (08:45→17:27)
[2023-04-11] MEDS: POTASSIUM CHLORIDE INJ 40 MEQ in SODIUM CHLORIDE 0.9% IV 500 ML 130 MEQ IVPB (08:45)
[2023-04-11] MEDS: COLLAGENASE OINT 30 GM TUBE 1 APPLIC TOPICAL (08:46)
[2023-04-11] MEDS: FUROSEMIDE 40 MG TABLET PO (08:46)
[2023-04-11] MEDS: SPIRONOLACTONE 25 MG TABLET PO (08:46)
[2023-04-11] MEDS: hydroCHLOROthiazide 12.5 MG CAPSULE PO (08:46)
[2023-04-11] MEDS: lisinopriL 10 MG TABLET PO (08:46)
[2023-04-11] MEDS: ASPIRIN 81 MG ENTERIC TABLET PO (08:46)
[2023-04-11] MEDS: PRAVASTATIN SODIUM 20 MG TABLET 80 MG PO (08:46)
[2023-04-11] MEDS: ACIDOPHILUS/BULGARICUS CHEWABLE TABLET 1 TABLET PO (08:46)
[2023-04-11] MEDS: EMPAGLIFLOZIN 10 MG TABLET PO (08:46)
[2023-04-11] MEDS: POTASSIUM CHLORIDE 20 MEQ ER TABLET 40 MEQ PO (08:51)
[2023-04-11 11:52] LABS: Glucose Point of Care 123 mg/dl (65-105)
[2023-04-11 12:24] LABS: Vancomycin Trough 19.5 ug/mL (10.0-20.0)
[2023-04-11] MEDS: traMADol HCL (*CRX) 50 MG TABLET PO ×2 (13:19→20:23)
--- NOTE | 2023-04-11 13:37 | P.PNIM_ITS ---
Progress Note: A&P Assessment and Plan (1) Cellulitis of right lower extremity: Code(s): L03.115 - Cellulitis of right lower limb Status: Acute Assessment and Plan: * Source appears to be the ulcer on the right calf. * She has been started on cefepime, metronidazole, and vancomycin on admission. Cefepime transitioned to ceftriaxone. * Wound care ordered. (2) Diabetic calf ulcer: Code(s): E11.622 - Type 2 diabetes mellitus with other skin ulcer; L97.209 - Non-pressure chronic ulcer of unspecified calf with unspecified severity Status: Acute Assessment and Plan: * Probable vascular lesion on this is been chronic for quite some time and is now worsening. * Lower extremity CT showed evidence of peripheral vascular disease * REI: arterial occlusive disease to bilateral lower limbs with moderately decreased bilateral ABIs and moderately to severe decreased right and moderately decreased left TBIs * Lower extremity CT scan with no evidence of abscess or osteomyelitis (3) Diastolic congestive heart failure: Code(s): I50.30 - Unspecified diastolic (congestive) heart failure Status: Acute Assessment and Plan: She had significant lower extremity pitting edema in the ED and was give IV lasix. * Monitor volume status, renal function, and electrolytes closely. * Daily weights. * Worsening edema today and Lasix was increased to 40 b.i.d.. * Due to hypokalemia likely associated Lasix increased patient's daily potassium to 40 b.i.d.. (4) Chronic kidney disease, stage 3: Code(s): N18.30 - Chronic kidney disease, stage 3 unspecified Status: Acute Assessment and Plan: Creatinine is near her baseline. (5) Peripheral vascular disease: Code(s): I73.9 - Peripheral vascular disease, unspecified Status: Acute Assessment and Plan: * Peripheral vascular disease noted on right lower extremity CT and evident on exam. * ABIs of the lower extremities show moderately decreased bilateral ABIs and moderate to severe decreased right TBI and moderately decreased left TBI. * Referral to vascular surgery at discharge. * Patient started on aspirin (6) Type 2 diabetes mellitus: Code(s): E11.9 - Type 2 diabetes mellitus without complications Status: Acute Assessment and Plan: * Continue Farxiga. * Recent hemoglobin A1c was 6.7%. * Initiate sliding scale insulin, Accu-Cheks, and hypoglycemic protocol. (7) Obstructive sleep apnea on CPAP: Code(s): G47.33 - Obstructive sleep apnea (adult) (pediatric) Status: Acute Assessment and Plan: CPAP will be provided for the patient to use while hospitalized. (8) Hypothyroidism: Code(s): E03.9 - Hypothyroidism, unspecified Status: Acute Assessment and Plan: Continue levothyroxine; recent TSH was within normal limits. (9) Aortic stenosis: Code(s): I35.0 - Nonrheumatic aortic (valve) stenosis Status: Acute Assessment and Plan: * Moderate to severe aortic valve stenosis on echocardiogram last week with a valve area of 0.982 centimeter squared. * This will need to be followed up closely as an outpatient and she will likely need referral to CTS. Subjective Date/time seen: 04/11/23 13:37 Interval history: Patient having some pretty significant pain in her right leg. She was working
--- NOTE | 2023-04-11 13:37 | PM.IMPN ---
Progress Note: A&P Assessment and Plan (1) Cellulitis of right lower extremity: Code(s): L03.115 - Cellulitis of right lower limb Status: Acute Assessment and Plan: Source appears to be the ulcer on the right calf. She has been started on cefepime, metronidazole, and vancomycin on admission. Cefepime transitioned to ceftriaxone. Wound care ordered. (2) Diabetic calf ulcer: Code(s): E11.622 - Type 2 diabetes mellitus with other skin ulcer; L97.209 - Non-pressure chronic ulcer of unspecified calf with unspecified severity Status: Acute Assessment and Plan: Probable vascular lesion on this is been chronic for quite some time and is now worsening. Lower extremity CT showed evidence of peripheral vascular disease REI: arterial occlusive disease to bilateral lower limbs with moderately decreased bilateral ABIs and moderately to severe decreased right and moderately decreased left TBIs Lower extremity CT scan with no evidence of abscess or osteomyelitis (3) Diastolic congestive heart failure: Code(s): I50.30 - Unspecified diastolic (congestive) heart failure Status: Acute Assessment and Plan: She had significant lower extremity pitting edema in the ED and was give IV lasix. Monitor volume status, renal function, and electrolytes closely. Daily weights. Worsening edema today and Lasix was increased to 40 b.i.d.. Due to hypokalemia likely associated Lasix increased patient's daily potassium to 40 b.i.d.. (4) Chronic kidney disease, stage 3: Code(s): N18.30 - Chronic kidney disease, stage 3 unspecified Status: Acute Assessment and Plan: Creatinine is near her baseline. (5) Peripheral vascular disease: Code(s): I73.9 - Peripheral vascular disease, unspecified Status: Acute Assessment and Plan: Peripheral vascular disease noted on right lower extremity CT and evident on exam. ABIs of the lower extremities show moderately decreased bilateral ABIs and moderate to severe decreased right TBI and moderately decreased left TBI. Referral to vascular surgery at discharge. Patient started on aspirin (6) Type 2 diabetes mellitus: Code(s): E11.9 - Type 2 diabetes mellitus without complications Status: Acute Assessment and Plan: Continue Farxiga. Recent hemoglobin A1c was 6.7%. Initiate sliding scale insulin, Accu-Cheks, and hypoglycemic protocol. (7) Obstructive sleep apnea on CPAP: Code(s): G47.33 - Obstructive sleep apnea (adult) (pediatric) Status: Acute Assessment and Plan: CPAP will be provided for the patient to use while hospitalized. (8) Hypothyroidism: Code(s): E03.9 - Hypothyroidism, unspecified Status: Acute Assessment and Plan: Continue levothyroxine; recent TSH was within normal limits. (9) Aortic stenosis: Code(s): I35.0 - Nonrheumatic aortic (valve) stenosis Status: Acute Assessment and Plan: Moderate to severe aortic valve stenosis on echocardiogram last week with a valve area of 0.982 centimeter squared. This will need to be followed up closely as an outpatient and she will likely need referral to CTS. Subjective Date/time seen: 04/11/23 13:37 Interval history: Patient having some pretty significant pain in her right leg. She was working with therapy. Continue antibiotics. Increase patient's Lasix to help with the swelling. Erythema and warmth both improved today but swelling was worsened. She denies any fever, nausea, vomiting, chills, chest pain or shortness of breath. Encourage hydration and continuation to work with therapy. Exam Narrative: GENERAL: Comfortable, no acute distress HENMT: moist mucous membranes EYES: EOM intact b/l NECK: no lymphadenopathy RESPIRATORY: clear to auscultation CARDIO: RRR, murmur present GI: soft, nontender, bowel
[2023-04-11 14:00] VITALS: BP 96/51; PULSE 96; RESP 14; TEMP 36.3; O2SAT 96
[2023-04-11] MEDS: VANCOMYCIN 1,500 MG/NS 500 ML 1,500 MG/500 ML BAG 250 MG IVPB (14:14)
[2023-04-11] MEDS: cefTRIAXone 2 GM/NS 100 ML 2 GM/100 ML BAG IVPB (14:15)
[2023-04-11] MEDS: metroNIDAZOLE 500 MG TABLET PO ×2 (14:18→21:30)
[2023-04-11 14:47] VITALS: O2SAT 98
[2023-04-11 16:40] LABS: Glucose Point of Care 123 mg/dl (65-105)
[2023-04-11 18:54] LABS: Potassium 4.5 mmol/L (3.4-5.0)
[2023-04-11 20:25] VITALS: BP 141/59; PULSE 104; RESP 20; TEMP 37.4; O2SAT 100
[2023-04-11 20:54] LABS: Glucose Point of Care 121 mg/dl (65-105)
[2023-04-11 22:32] LABS: Toxigenic C. Diff NEGATIVE (NEGATIVE)
[2023-04-11 22:52] VITALS: PULSE 81; RESP 20; O2SAT 93
[2023-04-12 05:20] VITALS: BP 135/44; PULSE 96; RESP 20; TEMP 37; O2SAT 92
[2023-04-12] MEDS: metroNIDAZOLE 500 MG TABLET PO ×3 (06:32→22:02)
[2023-04-12] MEDS: LEVOTHYROXINE SODIUM 100 MCG TABLET 200 MCG PO (06:32)
[2023-04-12 07:09] LABS: Basophils Absolute Auto 0.1 K/mm3 (0.0-0.1); Eosinophils Absolute Auto 0.5 K/mm3 (0-0.3); Eosinophils Percent Auto 4.5 % (0-4.4); Hematocrit 32.9 % (37.0-47.0); Hemoglobin 10.3 g/dL (12.0-15.0); Immature Granulocyte Absolute 0.36 K/mm3 (0.00-0.031); Immature Granulocyte Percent A 3.2 % (0-0.5); Lymphocytes Percent Auto 14.3 % (18.3-44.2); Mean Corpuscular HGB Conc 31.3 g/dl (32-36); Mean Corpuscular Hemoglobin 27.1 pg (26-34); Mean Corpuscular Volume 86.6 fl (80-100); Mean Platelet Volume 10.6 fl (7.4-10.4); Monocytes Absolute Auto 0.8 K/mm3 (0.1-0.6); Monocytes Percent Auto 7.3 % (2.6-8.5); Neutrophils Absolute Auto 7.8 K/mm3 (1.3-6.7); Neutrophils Percent Auto 69.7 % (45.5-73.1); Nucleated Red Blood Cells Perc 0.2 % (0.0-0.2); Platelet Count Result 473 k/mm3 (150-375); Red Cell Distribution Width 14.5 % (11.5-14.5); White Blood Count 11.2 K/mm3 (4.5-10.0)
[2023-04-12 07:29] LABS: Glucose Point of Care 97 mg/dl (65-105)
[2023-04-12 07:33] LABS: Alanine Aminotransferase 21 U/L (6-35); Albumin Level 2.9 g/dL (3.5-5.1); Alkaline Phosphatase 68 U/L (38-126); Anion Gap 6 mmol/L (8-16); Aspartate Amino Transferase 40 U/L (14-36); Bilirubin,Total 0.4 mg/dL (0.2-1.3); Blood Urea Nitrogen 9 mg/dL (7-17); Calcium 8.1 mg/dL (8.4-10.2); Carbon Dioxide 26 mmol/L (22-30); Chloride 100 mmol/L (98-107); Estimated CRCL calculation 46 ml/min; Estimated Glomerular Filt Rate 48; Glucose 93 mg/dL (65-110); Potassium 4.1 mmol/L (3.4-5.0); Sodium 132 mmol/L (137-145)
[2023-04-12] MEDS: cefTRIAXone 2 GM/NS 100 ML 2 GM/100 ML BAG IVPB (08:35)
[2023-04-12] MEDS: POTASSIUM CHLORIDE 20 MEQ PACKET (FOR LIQUID) 40 MEQ PO ×2 (08:35→16:27)
[2023-04-12] MEDS: lisinopriL 10 MG TABLET PO (08:36)
[2023-04-12] MEDS: SPIRONOLACTONE 25 MG TABLET PO (08:36)
[2023-04-12] MEDS: ENOXAPARIN 40 MG/0.4 ML SYRINGE SUB-Q ×2 (08:36→20:10)
[2023-04-12] MEDS: hydroCHLOROthiazide 12.5 MG CAPSULE PO (08:37)
[2023-04-12] MEDS: EMPAGLIFLOZIN 10 MG TABLET PO (08:37)
[2023-04-12] MEDS: FUROSEMIDE 40 MG TABLET PO (08:37)
[2023-04-12] MEDS: COLLAGENASE OINT 30 GM TUBE 1 APPLIC TOPICAL (08:37)
[2023-04-12] MEDS: ASPIRIN 81 MG ENTERIC TABLET PO (08:37)
[2023-04-12] MEDS: PRAVASTATIN SODIUM 20 MG TABLET 80 MG PO (08:37)
[2023-04-12] MEDS: ACIDOPHILUS/BULGARICUS CHEWABLE TABLET 1 TABLET PO (08:37)
[2023-04-12 08:52] VITALS: O2SAT 93
[2023-04-12] MEDS: LIDOCAINE HCL 1% PF INJ 5 ML VIAL INFILTRATE (09:50)
[2023-04-12 11:15] VITALS: BMI 10.0
[2023-04-12 11:18] LABS: Glucose Point of Care 105 mg/dl (65-105)
--- NOTE | 2023-04-12 12:47 | P.PNIM_ITS ---
Progress Note: A&P Assessment and Plan (1) Cellulitis of right lower extremity: Code(s): L03.115 - Cellulitis of right lower limb Status: Acute Assessment and Plan: * Source appears to be the ulcer on the right calf. * She has been started on cefepime, metronidazole, and vancomycin on admission. Cefepime transitioned to ceftriaxone. * Wound care ordered. (2) Diabetic calf ulcer: Code(s): E11.622 - Type 2 diabetes mellitus with other skin ulcer; L97.209 - Non-pressure chronic ulcer of unspecified calf with unspecified severity Status: Acute Assessment and Plan: * Probable vascular lesion on this is been chronic for quite some time and is now worsening. * Lower extremity CT showed evidence of peripheral vascular disease * REI: arterial occlusive disease to bilateral lower limbs with moderately decreased bilateral ABIs and moderately to severe decreased right and moderately decreased left TBIs * Lower extremity CT scan with no evidence of abscess or osteomyelitis * Patient needs to see vascular as an outpatient. (3) Diastolic congestive heart failure: Code(s): I50.30 - Unspecified diastolic (congestive) heart failure Status: Acute Assessment and Plan: She had significant lower extremity pitting edema in the ED and was give IV lasix. * Monitor volume status, renal function, and electrolytes closely. * Daily weights. * Worsening edema today and Lasix was increased to 40 b.i.d.. * Due to hypokalemia likely associated Lasix increased patient's daily potassium to 40 b.i.d.. (4) Chronic kidney disease, stage 3: Code(s): N18.30 - Chronic kidney disease, stage 3 unspecified Status: Acute Assessment and Plan: Creatinine is near her baseline. (5) Peripheral vascular disease: Code(s): I73.9 - Peripheral vascular disease, unspecified Status: Acute Assessment and Plan: * Peripheral vascular disease noted on right lower extremity CT and evident on exam. * ABIs of the lower extremities show moderately decreased bilateral ABIs and moderate to severe decreased right TBI and moderately decreased left TBI. * Referral to vascular surgery at discharge. * Patient started on aspirin (6) Type 2 diabetes mellitus: Code(s): E11.9 - Type 2 diabetes mellitus without complications Status: Acute Assessment and Plan: * Continue Farxims. * Recent hemoglobin A1c was 6.7%. * Initiate sliding scale insulin, Accu-Cheks, and hypoglycemic protocol. (7) Obstructive sleep apnea on CPAP: Code(s): G47.33 - Obstructive sleep apnea (adult) (pediatric) Status: Acute Assessment and Plan: CPAP will be provided for the patient to use while hospitalized. (8) Hypothyroidism: Code(s): E03.9 - Hypothyroidism, unspecified Status: Acute Assessment and Plan: Continue levothyroxine; recent TSH was within normal limits. (9) Aortic stenosis: Code(s): I35.0 - Nonrheumatic aortic (valve) stenosis Status: Acute Assessment and Plan: * Moderate to severe aortic valve stenosis on echocardiogram last week with a valve area of 0.982 centimeter squared. * This will need to be followed up closely as an outpatient and she will likely need referral to CTS. Subjective Date/time seen: 04/12/23 12:47
--- NOTE | 2023-04-12 12:47 | PM.IMPN ---
Progress Note: A&P Assessment and Plan (1) Cellulitis of right lower extremity: Code(s): L03.115 - Cellulitis of right lower limb Status: Acute Assessment and Plan: Source appears to be the ulcer on the right calf. She has been started on cefepime, metronidazole, and vancomycin on admission. Cefepime transitioned to ceftriaxone. Wound care ordered. (2) Diabetic calf ulcer: Code(s): E11.622 - Type 2 diabetes mellitus with other skin ulcer; L97.209 - Non-pressure chronic ulcer of unspecified calf with unspecified severity Status: Acute Assessment and Plan: Probable vascular lesion on this is been chronic for quite some time and is now worsening. Lower extremity CT showed evidence of peripheral vascular disease REI: arterial occlusive disease to bilateral lower limbs with moderately decreased bilateral ABIs and moderately to severe decreased right and moderately decreased left TBIs Lower extremity CT scan with no evidence of abscess or osteomyelitis Patient needs to see vascular as an outpatient. (3) Diastolic congestive heart failure: Code(s): I50.30 - Unspecified diastolic (congestive) heart failure Status: Acute Assessment and Plan: She had significant lower extremity pitting edema in the ED and was give IV lasix. Monitor volume status, renal function, and electrolytes closely. Daily weights. Worsening edema today and Lasix was increased to 40 b.i.d.. Due to hypokalemia likely associated Lasix increased patient's daily potassium to 40 b.i.d.. (4) Chronic kidney disease, stage 3: Code(s): N18.30 - Chronic kidney disease, stage 3 unspecified Status: Acute Assessment and Plan: Creatinine is near her baseline. (5) Peripheral vascular disease: Code(s): I73.9 - Peripheral vascular disease, unspecified Status: Acute Assessment and Plan: Peripheral vascular disease noted on right lower extremity CT and evident on exam. ABIs of the lower extremities show moderately decreased bilateral ABIs and moderate to severe decreased right TBI and moderately decreased left TBI. Referral to vascular surgery at discharge. Patient started on aspirin (6) Type 2 diabetes mellitus: Code(s): E11.9 - Type 2 diabetes mellitus without complications Status: Acute Assessment and Plan: Continue Farxiga. Recent hemoglobin A1c was 6.7%. Initiate sliding scale insulin, Accu-Cheks, and hypoglycemic protocol. (7) Obstructive sleep apnea on CPAP: Code(s): G47.33 - Obstructive sleep apnea (adult) (pediatric) Status: Acute Assessment and Plan: CPAP will be provided for the patient to use while hospitalized. (8) Hypothyroidism: Code(s): E03.9 - Hypothyroidism, unspecified Status: Acute Assessment and Plan: Continue levothyroxine; recent TSH was within normal limits. (9) Aortic stenosis: Code(s): I35.0 - Nonrheumatic aortic (valve) stenosis Status: Acute Assessment and Plan: Moderate to severe aortic valve stenosis on echocardiogram last week with a valve area of 0.982 centimeter squared. This will need to be followed up closely as an outpatient and she will likely need referral to CTS. Subjective Date/time seen: 04/12/23 12:47 Interval history: Patient continues to have right extremity pain. The warmth has improved but patient is still fairly erythematous and tender. Patient denies body aches, chills, fever nausea vomiting. Will continue with current antibiotic therapy as well as diuresis. Exam Narrative: GENERAL: Comfortable, no acute distress HENMT: moist mucous membranes EYES: EOM intact b/l NECK: no lymphadenopathy RESPIRATORY: clear to auscultation CARDIO: RRR, murmur present GI: soft, nontender, bowel sounds present EXTREMITIES: 2+ edema on right leg; right ex
[2023-04-12] MEDS: VANCOMYCIN 1,500 MG/NS 500 ML 1,500 MG/500 ML BAG 250 MG IVPB (13:51)
[2023-04-12] MEDS: CENTRAL LINE FLUSH 10 ML IV PUSH ×2 (13:52→22:08)
[2023-04-12 14:00] VITALS: BP 122/47; PULSE 95; RESP 24; TEMP 36.6; O2SAT 96
[2023-04-12] MEDS: traMADol HCL (*CRX) 50 MG TABLET PO (15:48)
[2023-04-12 16:34] LABS: Glucose Point of Care 74 mg/dl (65-105)
[2023-04-12 21:11] VITALS: BP 131/47; PULSE 95; RESP 18; TEMP 36.6; O2SAT 100
[2023-04-12 21:27] LABS: Glucose Point of Care 98 mg/dl (65-105)
[2023-04-13 04:55] VITALS: BP 140/59; PULSE 101; RESP 16; TEMP 36.2; O2SAT 93
[2023-04-13] MEDS: LEVOTHYROXINE SODIUM 100 MCG TABLET 200 MCG PO (05:52)
[2023-04-13] MEDS: metroNIDAZOLE 500 MG TABLET PO ×3 (05:52→21:27)
[2023-04-13] MEDS: CENTRAL LINE FLUSH 10 ML IV PUSH ×3 (05:52→21:28)
[2023-04-13 06:28] LABS: Alanine Aminotransferase 21 U/L (6-35); Albumin Level 2.8 g/dL (3.5-5.1); Alkaline Phosphatase 64 U/L (38-126); Anion Gap 4 mmol/L (8-16); Aspartate Amino Transferase 40 U/L (14-36); Bilirubin,Total 0.4 mg/dL (0.2-1.3); Blood Urea Nitrogen 9 mg/dL (7-17); Calcium 8.2 mg/dL (8.4-10.2); Carbon Dioxide 28 mmol/L (22-30); Chloride 99 mmol/L (98-107); Estimated CRCL calculation 47 ml/min; Estimated Glomerular Filt Rate 48; Glucose 93 mg/dL (65-110); Potassium 4.3 mmol/L (3.4-5.0); Sodium 131 mmol/L (137-145)
[2023-04-13 06:32] LABS: Basophils Absolute Auto 0.1 K/mm3 (0.0-0.1); Basophils Percent Auto 0.7 % (0.2-1.2); Eosinophils Absolute Auto 0.3 K/mm3 (0-0.3); Eosinophils Percent Auto 2.8 % (0-4.4); Hematocrit 32.5 % (37.0-47.0); Hemoglobin 10.4 g/dL (12.0-15.0); Immature Granulocyte Absolute 0.29 K/mm3 (0.00-0.031); Immature Granulocyte Percent A 2.4 % (0-0.5); Lymphocytes Absolute Auto 1.84 K/mm3 (0.9-3.2); Lymphocytes Percent Auto 15.3 % (18.3-44.2); Mean Corpuscular Hemoglobin 27.7 pg (26-34); Mean Corpuscular Volume 86.4 fl (80-100); Mean Platelet Volume 10.3 fl (7.4-10.4); Monocytes Absolute Auto 0.9 K/mm3 (0.1-0.6); Monocytes Percent Auto 7.3 % (2.6-8.5); Neutrophils Absolute Auto 8.6 K/mm3 (1.3-6.7); Neutrophils Percent Auto 71.5 % (45.5-73.1); Platelet Count Result 487 k/mm3 (150-375); Red Blood Count 3.76 M/mm3 (4.2-5.4); Red Cell Distribution Width 14.5 % (11.5-14.5)
[2023-04-13 07:31] LABS: Glucose Point of Care 114 mg/dl (65-105)
[2023-04-13] MEDS: cefTRIAXone 2 GM/NS 100 ML 2 GM/100 ML BAG IVPB (08:54)
[2023-04-13] MEDS: ALBUMIN HUMAN 25% 25 GM/100 ML 100 ML IVPB ×3 (08:54→21:26)
[2023-04-13] MEDS: SPIRONOLACTONE 25 MG TABLET PO (08:59)
[2023-04-13] MEDS: hydroCHLOROthiazide 12.5 MG CAPSULE PO (08:59)
[2023-04-13] MEDS: lisinopriL 10 MG TABLET PO (08:59)
[2023-04-13] MEDS: ENOXAPARIN 40 MG/0.4 ML SYRINGE SUB-Q ×2 (08:59→21:24)
[2023-04-13] MEDS: POTASSIUM CHLORIDE 20 MEQ PACKET (FOR LIQUID) 40 MEQ PO ×2 (08:59→16:53)
[2023-04-13] MEDS: ACIDOPHILUS/BULGARICUS CHEWABLE TABLET 1 TABLET PO (08:59)
[2023-04-13] MEDS: PRAVASTATIN SODIUM 20 MG TABLET 80 MG PO (08:59)
[2023-04-13] MEDS: EMPAGLIFLOZIN 10 MG TABLET PO (08:59)
[2023-04-13] MEDS: ASPIRIN 81 MG ENTERIC TABLET PO (08:59)
[2023-04-13] MEDS: COLLAGENASE OINT 30 GM TUBE 1 APPLIC TOPICAL (09:00)
[2023-04-13] MEDS: FUROSEMIDE 40 MG TABLET PO (09:00)
[2023-04-13] MEDS: diphenhydrAMINE HCL ELIXIR 12.5 MG/5 ML UDC PO (10:29)
[2023-04-13 11:40] LABS: Glucose Point of Care 129 mg/dl (65-105)
--- NOTE | 2023-04-13 11:47 | P.PNIM_ITS ---
Progress Note: A&P Assessment and Plan (1) Cellulitis of right lower extremity: Code(s): L03.115 - Cellulitis of right lower limb Status: Acute Assessment and Plan: * Source appears to be the ulcer on the right calf. * She has been started on cefepime, metronidazole, and vancomycin on admission. Cefepime transitioned to ceftriaxone. * Wound care ordered. * 04/13/23 patient has erythema, warmth and induration has improved but is still present. Patient is still edematous in her right leg. * Albumin is low. Ordered 4 bags of albumin to aid in her edema. (2) Diabetic calf ulcer: Code(s): E11.622 - Type 2 diabetes mellitus with other skin ulcer; L97.209 - Non-pressure chronic ulcer of unspecified calf with unspecified severity Status: Acute Assessment and Plan: * Probable vascular lesion on this is been chronic for quite some time and is now worsening. * Lower extremity CT showed evidence of peripheral vascular disease * REI: arterial occlusive disease to bilateral lower limbs with moderately decreased bilateral ABIs and moderately to severe decreased right and moderately decreased left TBIs * Lower extremity CT scan with no evidence of abscess or osteomyelitis * Patient needs to see vascular as an outpatient. (3) Diastolic congestive heart failure: Code(s): I50.30 - Unspecified diastolic (congestive) heart failure Status: Acute Assessment and Plan: She had significant lower extremity pitting edema in the ED and was give IV lasix. * Monitor volume status, renal function, and electrolytes closely. * Daily weights. * Worsening edema today and Lasix was increased to 40 b.i.d.. * Due to hypokalemia likely associated Lasix increased patient's daily potassium to 40 b.i.d.. (4) Chronic kidney disease, stage 3: Code(s): N18.30 - Chronic kidney disease, stage 3 unspecified Status: Acute Assessment and Plan: Creatinine is near her baseline. (5) Peripheral vascular disease: Code(s): I73.9 - Peripheral vascular disease, unspecified Status: Acute Assessment and Plan: * Peripheral vascular disease noted on right lower extremity CT and evident on exam. * ABIs of the lower extremities show moderately decreased bilateral ABIs and moderate to severe decreased right TBI and moderately decreased left TBI. * Referral to vascular surgery at discharge. * Patient started on aspirin (6) Type 2 diabetes mellitus: Code(s): E11.9 - Type 2 diabetes mellitus without complications Status: Acute Assessment and Plan: * Continue Farxiga. * Recent hemoglobin A1c was 6.7%. * Initiate sliding scale insulin, Accu-Cheks, and hypoglycemic protocol. (7) Obstructive sleep apnea on CPAP: Code(s): G47.33 - Obstructive sleep apnea (adult) (pediatric) Status: Acute Assessment and Plan: CPAP will be provided for the patient to use while hospitalized. (8) Hypothyroidism: Code(s): E03.9 - Hypothyroidism, unspecified Status: Acute Assessment and Plan: Continue levothyroxine; recent TSH was within normal limits. (9) Aortic stenosis: Code(s): I35.0 - Nonrheumatic aortic (valve) stenosis Status: Acute Assessment and Plan: * Moderate to severe aortic valve stenosis on echocardiogram last week with a valve area of 0.982 centimeter squared.
--- NOTE | 2023-04-13 11:47 | PM.IMPN ---
Progress Note: A&P Assessment and Plan (1) Cellulitis of right lower extremity: Code(s): L03.115 - Cellulitis of right lower limb Status: Acute Assessment and Plan: Source appears to be the ulcer on the right calf. She has been started on cefepime, metronidazole, and vancomycin on admission. Cefepime transitioned to ceftriaxone. Wound care ordered. 04/13/23 patient has erythema, warmth and induration has improved but is still present. Patient is still edematous in her right leg. Albumin is low. Ordered 4 bags of albumin to aid in her edema. (2) Diabetic calf ulcer: Code(s): E11.622 - Type 2 diabetes mellitus with other skin ulcer; L97.209 - Non-pressure chronic ulcer of unspecified calf with unspecified severity Status: Acute Assessment and Plan: Probable vascular lesion on this is been chronic for quite some time and is now worsening. Lower extremity CT showed evidence of peripheral vascular disease REI: arterial occlusive disease to bilateral lower limbs with moderately decreased bilateral ABIs and moderately to severe decreased right and moderately decreased left TBIs Lower extremity CT scan with no evidence of abscess or osteomyelitis Patient needs to see vascular as an outpatient. (3) Diastolic congestive heart failure: Code(s): I50.30 - Unspecified diastolic (congestive) heart failure Status: Acute Assessment and Plan: She had significant lower extremity pitting edema in the ED and was give IV lasix. Monitor volume status, renal function, and electrolytes closely. Daily weights. Worsening edema today and Lasix was increased to 40 b.i.d.. Due to hypokalemia likely associated Lasix increased patient's daily potassium to 40 b.i.d.. (4) Chronic kidney disease, stage 3: Code(s): N18.30 - Chronic kidney disease, stage 3 unspecified Status: Acute Assessment and Plan: Creatinine is near her baseline. (5) Peripheral vascular disease: Code(s): I73.9 - Peripheral vascular disease, unspecified Status: Acute Assessment and Plan: Peripheral vascular disease noted on right lower extremity CT and evident on exam. ABIs of the lower extremities show moderately decreased bilateral ABIs and moderate to severe decreased right TBI and moderately decreased left TBI. Referral to vascular surgery at discharge. Patient started on aspirin (6) Type 2 diabetes mellitus: Code(s): E11.9 - Type 2 diabetes mellitus without complications Status: Acute Assessment and Plan: Continue Farxiga. Recent hemoglobin A1c was 6.7%. Initiate sliding scale insulin, Accu-Cheks, and hypoglycemic protocol. (7) Obstructive sleep apnea on CPAP: Code(s): G47.33 - Obstructive sleep apnea (adult) (pediatric) Status: Acute Assessment and Plan: CPAP will be provided for the patient to use while hospitalized. (8) Hypothyroidism: Code(s): E03.9 - Hypothyroidism, unspecified Status: Acute Assessment and Plan: Continue levothyroxine; recent TSH was within normal limits. (9) Aortic stenosis: Code(s): I35.0 - Nonrheumatic aortic (valve) stenosis Status: Acute Assessment and Plan: Moderate to severe aortic valve stenosis on echocardiogram last week with a valve area of 0.982 centimeter squared. This will need to be followed up closely as an outpatient and she will likely need referral to CTS. Subjective Date/time seen: 04/13/23 11:47 Interval history: Patient still having tenderness in her leg although its overall appearance is improving. She does have macerations on her buttock that are being treated by wound care. Encouraged her to continue to work with PT and OT as well as get up in out of bed. Plan to continue to treat with IV antibiotics for at least another day. Spoke with Care coord
[2023-04-13] MEDS: VANCOMYCIN 1,500 MG/NS 500 ML 1,500 MG/500 ML BAG 250 MG IVPB (13:05)
[2023-04-13 14:00] VITALS: BP 125/49; PULSE 96; RESP 16; TEMP 37.3; O2SAT 100
[2023-04-13 16:31] LABS: Glucose Point of Care 119 mg/dl (65-105)
[2023-04-13 20:00] VITALS: PULSE 96; RESP 16; O2SAT 100
[2023-04-13 21:43] VITALS: BP 156/64; PULSE 101; RESP 18; TEMP 36.7; O2SAT 95
[2023-04-13 21:55] LABS: Glucose Point of Care 195 mg/dl (65-105)
[2023-04-14] MEDS: ALBUMIN HUMAN 25% 25 GM/100 ML 100 ML IVPB (02:46)
[2023-04-14] MEDS: ACETAMINOPHEN 325 MG TABLET 650 MG PO (04:03)
[2023-04-14 05:05] VITALS: BP 126/47; PULSE 94; RESP 18; TEMP 36.2; O2SAT 92
[2023-04-14] MEDS: LEVOTHYROXINE SODIUM 100 MCG TABLET 200 MCG PO (05:15)
[2023-04-14] MEDS: CENTRAL LINE FLUSH 10 ML IV PUSH ×3 (05:17→21:34)
[2023-04-14] MEDS: metroNIDAZOLE 500 MG TABLET PO ×3 (05:17→21:33)
[2023-04-14] MEDS: diphenhydrAMINE HCL ELIXIR 12.5 MG/5 ML UDC PO (05:38)
[2023-04-14 06:12] LABS: Hematocrit 30.1 % (37.0-47.0); Hemoglobin 9.5 g/dL (12.0-15.0); Mean Corpuscular HGB Conc 31.6 g/dl (32-36); Mean Corpuscular Hemoglobin 27.3 pg (26-34); Mean Corpuscular Volume 86.5 fl (80-100); Mean Platelet Volume 10.4 fl (7.4-10.4); Platelet Count Result 418 k/mm3 (150-375); Red Blood Count 3.48 M/mm3 (4.2-5.4); Red Cell Distribution Width 14.6 % (11.5-14.5); White Blood Count 9.5 K/mm3 (4.5-10.0)
[2023-04-14 06:24] LABS: Anion Gap 9 mmol/L (8-16); Blood Urea Nitrogen 6 mg/dL (7-17); Calcium 8.9 mg/dL (8.4-10.2); Carbon Dioxide 26 mmol/L (22-30); Chloride 100 mmol/L (98-107); Estimated CRCL calculation 47 ml/min; Estimated Glomerular Filt Rate 48; Glucose 114 mg/dL (65-110); Sodium 135 mmol/L (137-145)
[2023-04-14 07:56] LABS: Glucose Point of Care 111 mg/dl (65-105)
[2023-04-14 08:00] VITALS: O2SAT 93
[2023-04-14] MEDS: hydroCHLOROthiazide 12.5 MG CAPSULE PO (08:16)
[2023-04-14] MEDS: EMPAGLIFLOZIN 10 MG TABLET PO (08:16)
[2023-04-14] MEDS: lisinopriL 10 MG TABLET PO (08:16)
[2023-04-14] MEDS: FUROSEMIDE 40 MG TABLET PO (08:16)
[2023-04-14] MEDS: ENOXAPARIN 40 MG/0.4 ML SYRINGE SUB-Q (08:16)
[2023-04-14] MEDS: ASPIRIN 81 MG ENTERIC TABLET PO (08:16)
[2023-04-14] MEDS: ACIDOPHILUS/BULGARICUS CHEWABLE TABLET 1 TABLET PO (08:16)
[2023-04-14] MEDS: SPIRONOLACTONE 25 MG TABLET PO (08:17)
[2023-04-14] MEDS: PRAVASTATIN SODIUM 20 MG TABLET 80 MG PO (08:17)
[2023-04-14] MEDS: cefTRIAXone 2 GM/NS 100 ML 2 GM/100 ML BAG IVPB (08:17)
[2023-04-14] MEDS: COLLAGENASE OINT 30 GM TUBE 1 APPLIC TOPICAL (10:00)
[2023-04-14 11:43] LABS: Glucose Point of Care 113 mg/dl (65-105)
[2023-04-14 12:48] LABS: Vancomycin Trough 21.4 ug/mL (10.0-20.0)
--- NOTE | 2023-04-14 14:28 | P.PNIM_ITS ---
Progress Note: A&P Assessment and Plan (1) Cellulitis of right lower extremity: Code(s): L03.115 - Cellulitis of right lower limb Status: Acute Assessment and Plan: * Source appears to be the ulcer on the right calf. * She has been started on cefepime, metronidazole, and vancomycin on admission. Cefepime transitioned to ceftriaxone. * Wound care ordered. * 04/13/23 patient has erythema, warmth and induration has improved but is still present. Patient is still edematous in her right leg. * Albumin is low. Ordered 4 bags of albumin to aid in her edema. * 04/14/23 Erythema and induration improved but still present. (2) Diabetic calf ulcer: Code(s): E11.622 - Type 2 diabetes mellitus with other skin ulcer; L97.209 - Non-pressure chronic ulcer of unspecified calf with unspecified severity Status: Acute Assessment and Plan: * Probable vascular lesion on this is been chronic for quite some time and is now worsening. * Lower extremity CT showed evidence of peripheral vascular disease * REI: arterial occlusive disease to bilateral lower limbs with moderately decreased bilateral ABIs and moderately to severe decreased right and moderately decreased left TBIs * Lower extremity CT scan with no evidence of abscess or osteomyelitis * Patient needs to see vascular as an outpatient. (3) Diastolic congestive heart failure: Code(s): I50.30 - Unspecified diastolic (congestive) heart failure Status: Acute Assessment and Plan: She had significant lower extremity pitting edema in the ED and was give IV lasix. * Monitor volume status, renal function, and electrolytes closely. * Daily weights. * Patient transition back to home dose of Lasix * Potassium decreased to 40 daily which is her home dose. (4) Chronic kidney disease, stage 3: Code(s): N18.30 - Chronic kidney disease, stage 3 unspecified Status: Acute Assessment and Plan: Creatinine is near her baseline. (5) Peripheral vascular disease: Code(s): I73.9 - Peripheral vascular disease, unspecified Status: Acute Assessment and Plan: * Peripheral vascular disease noted on right lower extremity CT and evident on exam. * ABIs of the lower extremities show moderately decreased bilateral ABIs and moderate to severe decreased right TBI and moderately decreased left TBI. * Referral to vascular surgery at discharge. * Patient started on aspirin (6) Type 2 diabetes mellitus: Code(s): E11.9 - Type 2 diabetes mellitus without complications Status: Acute Assessment and Plan: * Continue Farxiga. * Recent hemoglobin A1c was 6.7%. * Initiate sliding scale insulin, Accu-Cheks, and hypoglycemic protocol. (7) Obstructive sleep apnea on CPAP: Code(s): G47.33 - Obstructive sleep apnea (adult) (pediatric) Status: Acute Assessment and Plan: CPAP will be provided for the patient to use while hospitalized. (8) Hypothyroidism: Code(s): E03.9 - Hypothyroidism, unspecified Status: Acute Assessment and Plan: Continue levothyroxine; recent TSH was within normal limits. (9) Aortic stenosis: Code(s): I35.0 - Nonrheumatic aortic (valve) stenosis Status: Acute Assessment and Plan: * Moderate to severe aortic valve stenosis on echocardiogram last week with a valve area of 0.982 centimeter squ
--- NOTE | 2023-04-14 14:28 | PM.IMPN ---
Progress Note: A&P Assessment and Plan (1) Cellulitis of right lower extremity: Code(s): L03.115 - Cellulitis of right lower limb Status: Acute Assessment and Plan: Source appears to be the ulcer on the right calf. She has been started on cefepime, metronidazole, and vancomycin on admission. Cefepime transitioned to ceftriaxone. Wound care ordered. 04/13/23 patient has erythema, warmth and induration has improved but is still present. Patient is still edematous in her right leg. Albumin is low. Ordered 4 bags of albumin to aid in her edema. 04/14/23 Erythema and induration improved but still present. (2) Diabetic calf ulcer: Code(s): E11.622 - Type 2 diabetes mellitus with other skin ulcer; L97.209 - Non-pressure chronic ulcer of unspecified calf with unspecified severity Status: Acute Assessment and Plan: Probable vascular lesion on this is been chronic for quite some time and is now worsening. Lower extremity CT showed evidence of peripheral vascular disease REI: arterial occlusive disease to bilateral lower limbs with moderately decreased bilateral ABIs and moderately to severe decreased right and moderately decreased left TBIs Lower extremity CT scan with no evidence of abscess or osteomyelitis Patient needs to see vascular as an outpatient. (3) Diastolic congestive heart failure: Code(s): I50.30 - Unspecified diastolic (congestive) heart failure Status: Acute Assessment and Plan: She had significant lower extremity pitting edema in the ED and was give IV lasix. Monitor volume status, renal function, and electrolytes closely. Daily weights. Patient transition back to home dose of Lasix Potassium decreased to 40 daily which is her home dose. (4) Chronic kidney disease, stage 3: Code(s): N18.30 - Chronic kidney disease, stage 3 unspecified Status: Acute Assessment and Plan: Creatinine is near her baseline. (5) Peripheral vascular disease: Code(s): I73.9 - Peripheral vascular disease, unspecified Status: Acute Assessment and Plan: Peripheral vascular disease noted on right lower extremity CT and evident on exam. ABIs of the lower extremities show moderately decreased bilateral ABIs and moderate to severe decreased right TBI and moderately decreased left TBI. Referral to vascular surgery at discharge. Patient started on aspirin (6) Type 2 diabetes mellitus: Code(s): E11.9 - Type 2 diabetes mellitus without complications Status: Acute Assessment and Plan: Continue Farxiga. Recent hemoglobin A1c was 6.7%. Initiate sliding scale insulin, Accu-Cheks, and hypoglycemic protocol. (7) Obstructive sleep apnea on CPAP: Code(s): G47.33 - Obstructive sleep apnea (adult) (pediatric) Status: Acute Assessment and Plan: CPAP will be provided for the patient to use while hospitalized. (8) Hypothyroidism: Code(s): E03.9 - Hypothyroidism, unspecified Status: Acute Assessment and Plan: Continue levothyroxine; recent TSH was within normal limits. (9) Aortic stenosis: Code(s): I35.0 - Nonrheumatic aortic (valve) stenosis Status: Acute Assessment and Plan: Moderate to severe aortic valve stenosis on echocardiogram last week with a valve area of 0.982 centimeter squared. This will need to be followed up closely as an outpatient and she will likely need referral to CTS. Subjective Date/time seen: 04/14/23 14:28 Interval history: Continue IV antibiotic therapy. Patient is still having presyncope amount of pain in her leg. Upon further questioning patient states that below her knee her leg is pretty consistently red all the time likely from her chronic ulcer. She states that she has had this ulcer on the back of her leg for approximately 1 year. The erythema an
[2023-04-14 14:56] VITALS: BP 130/69; PULSE 75; RESP 16; TEMP 36.2; O2SAT 100
[2023-04-14 17:10] LABS: Glucose Point of Care 106 mg/dl (65-105)
[2023-04-14] MEDS: traMADol HCL (*CRX) 50 MG TABLET PO (18:05)
[2023-04-14] MEDS: VANCOMYCIN 1,250 MG/NS 250 ML 1,250 MG/250 ML BAG 166.67 MG IVPB (21:33)
[2023-04-14 21:44] LABS: Glucose Point of Care 127 mg/dl (65-105)
[2023-04-14 22:00] VITALS: BP 136/61; PULSE 103; RESP 18; TEMP 37.5; O2SAT 93
[2023-04-15] MEDS: LEVOTHYROXINE SODIUM 100 MCG TABLET 200 MCG PO (05:16)
[2023-04-15] MEDS: metroNIDAZOLE 500 MG TABLET PO ×2 (05:16→14:15)
[2023-04-15] MEDS: CENTRAL LINE FLUSH 10 ML IV PUSH ×2 (05:17→14:15)
[2023-04-15 05:44] LABS: Hematocrit 32.4 % (37.0-47.0); Hemoglobin 10.3 g/dL (12.0-15.0); Mean Corpuscular HGB Conc 31.8 g/dl (32-36); Mean Corpuscular Hemoglobin 27.4 pg (26-34); Mean Corpuscular Volume 86.2 fl (80-100); Mean Platelet Volume 10.3 fl (7.4-10.4); Platelet Count Result 472 k/mm3 (150-375); Red Blood Count 3.76 M/mm3 (4.2-5.4); Red Cell Distribution Width 14.8 % (11.5-14.5); White Blood Count 10.3 K/mm3 (4.5-10.0)
[2023-04-15 05:51] LABS: Alanine Aminotransferase 17 U/L (6-35); Albumin Level 3.4 g/dL (3.5-5.1); Alkaline Phosphatase 51 U/L (38-126); Anion Gap 8 mmol/L (8-16); Aspartate Amino Transferase 30 U/L (14-36); Bilirubin,Total 0.5 mg/dL (0.2-1.3); Blood Urea Nitrogen 4 mg/dL (7-17); Calcium 8.9 mg/dL (8.4-10.2); Carbon Dioxide 27 mmol/L (22-30); Chloride 100 mmol/L (98-107); Estimated CRCL calculation 47 ml/min; Estimated Glomerular Filt Rate 48; Glucose 106 mg/dL (65-110); Potassium 3.9 mmol/L (3.4-5.0); Sodium 135 mmol/L (137-145)
[2023-04-15 06:00] VITALS: BP 128/57; PULSE 92; RESP 18; TEMP 37.2; O2SAT 94
[2023-04-15 07:14] LABS: Glucose Point of Care 109 mg/dl (65-105)
[2023-04-15] MEDS: POTASSIUM CHLORIDE 20 MEQ PACKET (FOR LIQUID) 40 MEQ PO (09:01)
[2023-04-15] MEDS: EMPAGLIFLOZIN 10 MG TABLET PO (09:01)
[2023-04-15] MEDS: FUROSEMIDE 40 MG TABLET PO (09:01)
[2023-04-15] MEDS: ACIDOPHILUS/BULGARICUS CHEWABLE TABLET 1 TABLET PO (09:02)
[2023-04-15] MEDS: SPIRONOLACTONE 25 MG TABLET PO (09:02)
[2023-04-15] MEDS: cefTRIAXone 2 GM/NS 100 ML 2 GM/100 ML BAG IVPB (09:02)
[2023-04-15] MEDS: ASPIRIN 81 MG ENTERIC TABLET PO (09:02)
[2023-04-15] MEDS: PRAVASTATIN SODIUM 20 MG TABLET 80 MG PO (09:02)
[2023-04-15] MEDS: lisinopriL 10 MG TABLET PO (09:02)
[2023-04-15] MEDS: hydroCHLOROthiazide 12.5 MG CAPSULE PO (09:02)
[2023-04-15] MEDS: COLLAGENASE OINT 30 GM TUBE 1 APPLIC TOPICAL (09:03)
[2023-04-15] MEDS: ENOXAPARIN 40 MG/0.4 ML SYRINGE SUB-Q (09:05)
[2023-04-15 11:46] LABS: Glucose Point of Care 123 mg/dl (65-105)
--- NOTE | 2023-04-15 13:53 | P.DS_ITS ---
DS: Admitting Diagnosis Discharge Date 04/15/23 Admitting Diagnosis right lower extremity cellulitis DS: Discharge Diagnosis Discharge Diagnosis (1) Cellulitis of right lower extremity: Code(s): L03.115 - Cellulitis of right lower limb Status: Acute Assessment and Plan: * Source appears to be the ulcer on the right calf. * She has been started on cefepime, metronidazole, and vancomycin on admission. Cefepime transitioned to ceftriaxone. * Wound care ordered. * 04/13/23 patient has erythema, warmth and induration has improved but is still present. Patient is still edematous in her right leg. * Albumin is low. Ordered 4 bags of albumin to aid in her edema. * 04/14/23 Erythema and induration improved but still present. * 04/15/23 Above the knee erythema almost resolved. Will switch over to Oral antibiotics. * Insurance authorization approved; discharge to [facility]. (2) Diabetic calf ulcer: Code(s): E11.622 - Type 2 diabetes mellitus with other skin ulcer; L97.209 - Non-pressure chronic ulcer of unspecified calf with unspecified severity Status: Acute Assessment and Plan: * Probable vascular lesion on this is been chronic for quite some time and is now worsening. * Lower extremity CT showed evidence of peripheral vascular disease * REI: arterial occlusive disease to bilateral lower limbs with moderately decreased bilateral ABIs and moderately to severe decreased right and moderately decreased left TBIs * Lower extremity CT scan with no evidence of abscess or osteomyelitis * Patient needs to see vascular as an outpatient. (3) Diastolic congestive heart failure: Code(s): I50.30 - Unspecified diastolic (congestive) heart failure Status: Acute Assessment and Plan: She had significant lower extremity pitting edema in the ED and was give IV lasix. * Monitor volume status, renal function, and electrolytes closely. * Daily weights. * Patient transition back to home dose of Lasix * Potassium decreased to 40 daily which is her home dose. (4) Chronic kidney disease, stage 3: Code(s): N18.30 - Chronic kidney disease, stage 3 unspecified Status: Acute Assessment and Plan: Creatinine is near her baseline. (5) Peripheral vascular disease: Code(s): I73.9 - Peripheral vascular disease, unspecified Status: Acute Assessment and Plan: * Peripheral vascular disease noted on right lower extremity CT and evident on exam. * ABIs of the lower extremities show moderately decreased bilateral ABIs and moderate to severe decreased right TBI and moderately decreased left TBI. * Referral to vascular surgery at discharge. * Patient started on aspirin (6) Type 2 diabetes mellitus: Code(s): E11.9 - Type 2 diabetes mellitus without complications Status: Acute Assessment and Plan: * Continue Farxiga. * Recent hemoglobin A1c was 6.7%. * Initiate sliding scale insulin, Accu-Cheks, and hypoglycemic protocol. (7) Obstructive sleep apnea on CPAP: Code(s): G47.33 - Obstructive sleep apnea (adult) (pediatric) Status: Acute Assessment and Plan: CPAP will be provided for the patient to use while hospitalized. (8) Hypothyroidism: Code(s): E03.9 - Hypothyroidism, unspecified Status: Acute Assessment and Plan: Continue levothyroxine; recent TSH was within normal limits.
--- NOTE | 2023-04-15 13:53 | PM.DS ---
DS: Admitting Diagnosis Discharge Date 04/15/23 Admitting Diagnosis right lower extremity cellulitis DS: Discharge Diagnosis Discharge Diagnosis (1) Cellulitis of right lower extremity: Code(s): L03.115 - Cellulitis of right lower limb Status: Acute Assessment and Plan: Source appears to be the ulcer on the right calf. She has been started on cefepime, metronidazole, and vancomycin on admission. Cefepime transitioned to ceftriaxone. Wound care ordered. 04/13/23 patient has erythema, warmth and induration has improved but is still present. Patient is still edematous in her right leg. Albumin is low. Ordered 4 bags of albumin to aid in her edema. 04/14/23 Erythema and induration improved but still present. 04/15/23 Above the knee erythema almost resolved. Will switch over to Oral antibiotics. Insurance authorization approved; discharge to [facility]. (2) Diabetic calf ulcer: Code(s): E11.622 - Type 2 diabetes mellitus with other skin ulcer; L97.209 - Non-pressure chronic ulcer of unspecified calf with unspecified severity Status: Acute Assessment and Plan: Probable vascular lesion on this is been chronic for quite some time and is now worsening. Lower extremity CT showed evidence of peripheral vascular disease REI: arterial occlusive disease to bilateral lower limbs with moderately decreased bilateral ABIs and moderately to severe decreased right and moderately decreased left TBIs Lower extremity CT scan with no evidence of abscess or osteomyelitis Patient needs to see vascular as an outpatient. (3) Diastolic congestive heart failure: Code(s): I50.30 - Unspecified diastolic (congestive) heart failure Status: Acute Assessment and Plan: She had significant lower extremity pitting edema in the ED and was give IV lasix. Monitor volume status, renal function, and electrolytes closely. Daily weights. Patient transition back to home dose of Lasix Potassium decreased to 40 daily which is her home dose. (4) Chronic kidney disease, stage 3: Code(s): N18.30 - Chronic kidney disease, stage 3 unspecified Status: Acute Assessment and Plan: Creatinine is near her baseline. (5) Peripheral vascular disease: Code(s): I73.9 - Peripheral vascular disease, unspecified Status: Acute Assessment and Plan: Peripheral vascular disease noted on right lower extremity CT and evident on exam. ABIs of the lower extremities show moderately decreased bilateral ABIs and moderate to severe decreased right TBI and moderately decreased left TBI. Referral to vascular surgery at discharge. Patient started on aspirin (6) Type 2 diabetes mellitus: Code(s): E11.9 - Type 2 diabetes mellitus without complications Status: Acute Assessment and Plan: Continue Farxiga. Recent hemoglobin A1c was 6.7%. Initiate sliding scale insulin, Accu-Cheks, and hypoglycemic protocol. (7) Obstructive sleep apnea on CPAP: Code(s): G47.33 - Obstructive sleep apnea (adult) (pediatric) Status: Acute Assessment and Plan: CPAP will be provided for the patient to use while hospitalized. (8) Hypothyroidism: Code(s): E03.9 - Hypothyroidism, unspecified Status: Acute Assessment and Plan: Continue levothyroxine; recent TSH was within normal limits. (9) Aortic stenosis: Code(s): I35.0 - Nonrheumatic aortic (valve) stenosis Status: Acute Assessment and Plan: Moderate to severe aortic valve stenosis on echocardiogram last week with a valve area of 0.982 centimeter squared. This will need to be followed up closely as an outpatient and she will likely need referral to CTS. DS: Summary Hospital Course Hospital Course: This is a 77-year-old female with multiple medical problems including diastolic congestive he
[2023-04-15 14:00] VITALS: BP 135/64; PULSE 82; RESP 20; TEMP 36.8; O2SAT 96
--- NOTE | 2023-04-15 14:35 | PCOTNOTE ---
Attempted to see Patient for session. Patient states she is being discharged this afternoon, not interested in losing her strength to get over to another rehab facility. Patient's present.
[2023-04-15 15:16] LABS: SARS-CoV-2 RNA PCR Negative (Negative)
[2023-04-15] MEDS: NEOMYCIN/POLYMYXIN/BACITRACIN OINTMENT PACKET 1 PACKET (15:37)
[2023-04-15 16:47] LABS: Glucose Point of Care 126 mg/dl (65-105)
== END 2023-04-15 18:50 | DRG 637 ==
LOC: ANHED 14:46 → ANH3MEDSUR 15:40
PROVIDERS: General Practice; Physician Assistant; Student in an Organized Health Care Education/Training Program; Admitting Provider Internal Medicine; Emergency Provider Physician Assistant; PCP Internal Medicine; Visit Provider Internal Medicine Critical Care Medicine
DX: E11.628 Type 2 diabetes mellitus with other skin complications (principal); I50.31 Acute diastolic (congestive) heart failure; L03.115 Cellulitis of right lower limb; L97.219 Non-pressure chronic ulcer of right calf with unspecified severity; Z68.42 Body mass index [BMI] 45.0-49.9, adult; E11.622 Type 2 diabetes mellitus with other skin ulcer; E11.22 Type 2 diabetes mellitus with diabetic chronic kidney disease; N18.30 Chronic kidney disease, stage 3 unspecified; I73.9 Peripheral vascular disease, unspecified; G47.33 Obstructive sleep apnea (adult) (pediatric); E03.9 Hypothyroidism, unspecified; I35.0 Nonrheumatic aortic (valve) stenosis; Z11.52 Encounter for screening for COVID-19; E66.01 Morbid (severe) obesity due to excess calories; E87.6 Hypokalemia; T50.1X5A Adverse effect of loop [high-ceiling] diuretics, initial encounter
CPT/HCPCS: 36415; 36569; 71046; 73701; 80048; 80053; 80202; 81001; 82948; 83605; 83735; 83880; 84132; 85025; 85027; 85610; 85730; 86140; 87040; 87493; 87635; 93005; 93922; 94002; 96365; 96366; 96367; 96368; 96372; 96375; 96376; 97110; 97116; 97161; 97165; 97530; 97535; 99285; A9270; G0378; J0692; J0696; J1650; J1836; J1940; J3370; J3480; J7040; P9047; Q9967

== ENCOUNTER 2023-04-28 14:11 | Outpatient (CLI) | payer MEDICARE, SELFPAY ==
[2023-04-28 14:54] LABS: Hemoglobin A1C 6.4 % (<5.7)
[2023-04-28 14:58] LABS: Alanine Aminotransferase 16 U/L (6-35); Albumin Level 3.9 g/dL (3.5-5.1); Alkaline Phosphatase 82 U/L (38-126); Anion Gap 8 mmol/L (8-16); Aspartate Amino Transferase 34 U/L (14-36); Bilirubin,Total 0.6 mg/dL (0.2-1.3); Blood Urea Nitrogen 30 mg/dL (7-17); Carbon Dioxide 26 mmol/L (22-30); Chloride 101 mmol/L (98-107); Cholesterol 159 mg/dL (0-200); Estimated Glomerular Filt Rate 15; Glucose 165 mg/dL (65-110); HDL Direct 33 mg/dL; Sodium 135 mmol/L (137-145); Triglycerides 164 mg/dL (<150)
[2023-04-28 15:06] LABS: LDL Cholesterol Direct 95 mg/dL
[2023-04-28 15:10] LABS: Potassium 4.8 mmol/L (3.4-5.0)
[2023-04-28 15:15] LABS: Free T4 Free Thyroxine 3.51 ng/mL (0.78-2.19); Vitamin D 25 Hydroxy 58.3 ng/mL
[2023-04-28 15:20] LABS: Thyroid Stimulating Hormone 0.611 uIU/mL (0.465-4.680)
== END 2023-04-28 14:12 | disposition home or self-care (01) ==
PROVIDERS: PCP Internal Medicine; Visit Provider Internal Medicine
DX: E78.5 Hyperlipidemia, unspecified (principal); E11.9 Type 2 diabetes mellitus without complications; E03.9 Hypothyroidism, unspecified; E55.9 Vitamin D deficiency, unspecified; L03.90 Cellulitis, unspecified; N18.30 Chronic kidney disease, stage 3 unspecified; R60.0 Localized edema
CPT/HCPCS: 36415; 80053; 80061; 82306; 83036; 84439; 84443

== ENCOUNTER 2023-05-06 14:23 | Outpatient (NON) | payer MEDICARE, SELFPAY ==
[2023-05-06 15:49] LABS: Anion Gap 11 mmol/L (8-16); Blood Urea Nitrogen 35 mg/dL (7-17); Calcium 9.8 mg/dL (8.4-10.2); Carbon Dioxide 25 mmol/L (22-30); Chloride 98 mmol/L (98-107); Estimated Glomerular Filt Rate 15; Glucose 130 mg/dL (65-110); Potassium 4.3 mmol/L (3.4-5.0); Sodium 134 mmol/L (137-145)
== END 2023-05-06 14:24 | disposition home or self-care (01) ==
LOC: HOME HLTH 14:25
PROVIDERS: PCP Internal Medicine; Visit Provider Internal Medicine
DX: R79.89 Other specified abnormal findings of blood chemistry (principal)
CPT/HCPCS: 80048

== ENCOUNTER 2023-05-09 10:29 | Inpatient (IN) | payer MEDICARE, SELFPAY ==
[2023-05-09] VITALS (11 sets, daily range): BP systolic 117–151; BP diastolic 53–84; PULSE 100–132; RESP 16–22; TEMP 36.5–36.8; O2SAT 97–100; BMI 45.6
--- NOTE | ~2023-05-09 | CT_ITS ---
EXAMINATION: CT brain wo con INDICATION: Gait dysfunction COMPARISON: None TECHNIQUE: Standard unenhanced head CT. The dose-length product (DLP) was 605.33 mGy-cm. The mA was a djusted according to patient size. Iterative reconstruction technique was employed. FINDINGS: No acute intraparenchymal hemorrhage. No evidence of mass lesion. No evidence of acute infa rction. There is mild periventricular and subcortical hypodensity probably related to small vessel is chemic disease. There is mild prominence of the sulci and ventricles related to cerebral atrophy. Int racranial calcified cerebral atherosclerosis is noted. No extra-axial collections. No mass effect or midline shift. Changes in the globes are likely from ocular lens surgery. The visualized sinuses and mastoid air cells are well aerated. IMPRESSION: 1. No acute intracranial abnormality. 2. Age related findings. Reviewed, dictated and finalized at location L. PULLER
--- NOTE | ~2023-05-09 | US_ITS ---
EXAMINATION: US renal BI DATE: 05/12/2023 15:25 INDICATION: Acute on chronic kidney disease TECHNIQUE: Multiple grayscale and Doppler ultrasound images of the kidneys were obtained. COMPARISON: CT, 04/03/2023 FINDINGS: The right kidney measures 8.8 x 4.1 x 4.7 cm. The left kidney measures 7.9 x 4.6 x 3.6 cm. The kidneys demonstrate normal parenchymal echogenicity. There is no hydronephrosis. The bladder appe ars to demonstrate layering debris. IMPRESSION: 1. Normal kidneys without hydronephrosis. 2. Possible debris of the urinary bladder. Reviewed, dictated and finalized at location B. MECHANIC
--- NOTE | ~2023-05-09 | XR_ITS ---
XR chest 1V portable DATE: 05/17/2023 09:25 INDICATION: History of congestive heart failure TECHNIQUE: Portable upright AP chest on 05/27/2023 at 0918 hours COMPARISON: 05/16/2023 AP and lateral chest 04/09/2023 2 view chest 04/03/2023 CTA chest FINDINGS: Minimal infiltrate or atelectasis is suggested in both lower lungs. The lungs otherwise isatu ear clear. Heart size appears borderline, not optimally evaluated on AP projection because of magnification. Aor tic calcification. IMPRESSION: Minimal infiltrate or atelectasis in the lower lungs Reviewed, dictated and finalized at location A. PARKER
--- NOTE | ~2023-05-09 | XR_ITS ---
EXAMINATION: XR chest 2V DATE: 05/16/2023 08:22 INDICATION: Congestive heart failure TECHNIQUE: frontal and lateral views of the chest were obtained. COMPARISON: Chest radiograph dated 04/09/2023 FINDINGS: Prior pulmonary edema has resolved. The lungs are now clear with no airspace opacities, pleural effus ion or pneumothorax. The cardiomediastinal silhouette is normal. Likely right rotator cuff arthropath y. IMPRESSION: 1. No acute cardiopulmonary disease. Reviewed, dictated and finalized at location A. T CONTROLLER
[2023-05-09 11:14] LABS: Basophils Absolute Auto 0.1 K/mm3 (0.0-0.1); Eosinophils Absolute Auto 0.1 K/mm3 (0-0.3); Eosinophils Percent Auto 0.7 % (0-4.4); Hematocrit 36.8 % (37.0-47.0); Hemoglobin 11.5 g/dL (12.0-15.0); Immature Granulocyte Absolute 0.02 K/mm3 (0.00-0.031); Immature Granulocyte Percent A 0.2 % (0-0.5); Lymphocytes Absolute Auto 1.27 K/mm3 (0.9-3.2); Lymphocytes Percent Auto 15.8 % (18.3-44.2); Mean Corpuscular HGB Conc 31.3 g/dl (32-36); Mean Corpuscular Hemoglobin 27.1 pg (26-34); Mean Corpuscular Volume 86.8 fl (80-100); Mean Platelet Volume 10.3 fl (7.4-10.4); Monocytes Absolute Auto 0.8 K/mm3 (0.1-0.6); Monocytes Percent Auto 9.3 % (2.6-8.5); Neutrophils Absolute Auto 5.9 K/mm3 (1.3-6.7); Platelet Count Result 451 k/mm3 (150-375); Red Blood Count 4.24 M/mm3 (4.2-5.4); Red Cell Distribution Width 16.6 % (11.5-14.5); White Blood Count 8.1 K/mm3 (4.5-10.0)
--- NOTE | 2023-05-09 11:24 | ED.GENADULT ---
HPI - General Adult General Chief complaint: Weakness Stated complaint: weakness Time Seen by Provider: 05/09/23 10:32 History of Present Illness HPI narrative: 78-year-old female presenting to the emergency department for increased generalized weakness. Patient was recently discharged from [facility]. Patient does have a chronic wound to her sacrum and to her right leg. Patient states since being discharged she has had worsening generalized weakness. During patient's stay she had been started on cefepime and metronidazole and vanc. Patient was transition from cefepime to ceftriaxone. Wound care was ordered. Patient continued to improve patient was switched to oral medication and discharged to [facility]. Related Data Home Medications Medication Instructions Recorded Confirmed cholecalciferol (vitamin D3) 50 50 mcg PO MONTHLY 12/18/22 05/09/23 mcg (2,000 unit) capsule diphenhydramine HCl 25 mg tablet 12.5 mg PO PRN PRN Itching 01/07/23 05/09/23 (Benadryl Allergy) clindamycin HCl 300 mg capsule 300 mg PO Q6H 04/28/23 05/09/23 tramadol 50 mg tablet 50 mg PO BID PRN Pain 04/28/23 05/09/23 levothyroxine 150 mcg tablet 200 mcg PO DAILY 05/09/23 05/09/23 lisinopril 10 1 tablet PO DAILY 05/09/23 05/09/23 mg-hydrochlorothiazide 12.5 mg tablet Allergies Allergy/AdvReac Type Severity Reaction Status Date / Time Influenza Virus Vaccines Allergy Unknown Anaphylaxis Verified 05/09/23 14:13 Sulfa (Sulfonamide AdvReac Intermediate Rash Verified 05/09/23 14:13 Antibiotics) 1 GENERAL ANESTHISIA LAST Allergy Unknown Other Uncoded 04/28/23 13:07 2 SURGS Review of Systems Review of Systems: All systems reviewed & are unremarkable except as noted in HPI and below PMFSH Past Medical History Medical History Aortic stenosis Benign essential hypertension Body mass index (BMI) 45.0-49.9, adult Chronic kidney disease, stage 3 Degenerative joint disease Diastolic congestive heart failure Essential hypertension Hyperlipidemia Hypothyroidism (acquired) Murmur, heart PHYLICIA on CPAP Peripheral vascular disease Tachycardia Type 2 diabetes mellitus Vitamin D deficiency Surgical History Surgical History History of bladder repair surgery For bladder prolapse. Family History Family History Mother Hypertension, Onset Age: 70 Cerebrovascular accident Patient's mother is Sibling Carcinoma of colon Other Family history of arthritis Family history of coronary artery disease Social History Social History Social History: Surrogate medical decision maker: Dago North, spouse. Code status: Full code. Smoking status: Never smoker Second hand tobacco smoke exposure: No Alcohol intake: never Substance use: never Substance use type: does not use Do You Feel Safe in your Home?: Yes Lack of Transportation: No Lack of Food: Never True Current Housing: I Have Housing Concerned About Future Housing: No Difficulty Paying Gas/Electric Bills: No Difficulty Paying for Meds: No Currently Unemployed: No Education: Trade/Vocational Certificate Difficulty w/ Childcare or Family Care: No Additional living arrangements comments: Lives with spouse in [place]. Spiritual care concerns: No Exam Narrative: APPEARANCE: Tired appearing HEAD: normocephalic, atraumatic. EYES: PERRLA/EOMI, conjunctivae clear. NOSE: Normal no drainage NECK: Supple. No adenopathy, no masses. RESPIRATORY: Airway patent, respirations nonlabored. Clear to auscultation bilaterally, no rales, rhonchi, wheezing. CARDIOVASCULAR: Regular rate and rhythm without murmurs rubs or gallops. ABDOMINAL: Soft, nontender, nondistended, normal bowel sounds MUSCULOSKELET
[2023-05-09 11:27] LABS: Lactic Acid Reflex 1.7 mmol/L (0.7-2.0)
[2023-05-09 11:28] LABS: Alanine Aminotransferase 15 U/L (6-35); Albumin Level 3.9 g/dL (3.5-5.1); Alkaline Phosphatase 69 U/L (38-126); Anion Gap 9 mmol/L (8-16); Aspartate Amino Transferase 34 U/L (14-36); Bilirubin,Total 0.6 mg/dL (0.2-1.3); Blood Urea Nitrogen 34 mg/dL (7-17); Calcium 9.9 mg/dL (8.4-10.2); Carbon Dioxide 24 mmol/L (22-30); Chloride 100 mmol/L (98-107); Estimated CRCL calculation 23 ml/min; Estimated Glomerular Filt Rate 21; Glucose 132 mg/dL (65-110); INR 1.3; Potassium 4.2 mmol/L (3.4-5.0); Prothrombin Time 16.9 Seconds (11.1-14.7); Sodium 133 mmol/L (137-145)
[2023-05-09 11:29] LABS: Partial Thromboplastin Time 33.1 SECONDS (22.3-36.8)
[2023-05-09 12:01] LABS: Influenza A QL RT-PCR Negative (Negative); Influenza B QL RT-PCR Negative (Negative); RSV RNA, RT-PCR Negative (Negative); SARS-CoV-2 RNA PCR Negative (Negative)
[2023-05-09 12:08] LABS: Appearance Urine Turbid (Clear); Bacteria Urine 4+ /hpf; Bilirubin Urine Negative (Negative); Blood Urine 3+ (Negative); Color Urine Dark Yellow (Yellow); Glucose Urine UA 1+ mg/dL (Negative); Ketones Urine Trace mg/dL (Negative); Leukocyte Esterase Ur 3+ LEU/UL (Negative); Need Manual Microscopic Reviewed; Nitrate Urine Positive (Negative); Protein Urine 2+ mg/dL (Negative); RBC Urine 51-100 /hpf (0-2); Specific Grav Ur 1.016 (1.001-1.035); Squamous Epithelial Cell Urine Many /hpf (Few); Urobilinogen Urine 0.2 mg/dL (<2.0); WBC Clumps Urine Present /HPF; WBC Urine >100 /hpf
[2023-05-09 12:10] LABS: Add Urine Microscopic? YES
[2023-05-09] MEDS: PIPERACILLN/TAZ 3.375GM/NS50ML 3.375 GM/50 ML BAG IVPB (12:16)
[2023-05-09] MEDS: SODIUM CHLORIDE 0.9% IV 1,000 ML 999 ML IV CONT (12:41)
--- NOTE | 2023-05-09 12:51 | PM.IMHP ---
H&P: HPI History of Present Illness Date/Time: 05/09/23 12:51 Chief Complaint: Weakness and Decreased Appetite Narrative: 78 y/o F presents here with generalized weakness and reduced appetite with PMH of HTN, CKD, CHF, HTN, HLD, hypothyroidism, PHYLICIA on CPAP, PVD, DM2, and aortic stenosis. Patient reports that she has been feeling generally weak and more fatigued. Patient is poor historian. Unable to elaborate on timeframe. Denies any burning with urination or hematuria. Endorses urinary frequency, but this is patient's baseline. Denies any abdominal pain or suprapubic pain. Patient reports overall improvement in her lower extremities - i.e improved appearance and reduction in pain. Per chart review, no time frame given to ED staff. Patient is well known to the hospitalist service with recent admissions on 04/03 - 04/08 for a drug resistant UTI and positive blood cultures (Group A Strep). Patient was encouraged to go to rehab but ultimately declined. Patient returned on 04/09 - 04/15 for weakness, somnolence, and general malaise. Found to have RLE cellulitis without evidence of abscess or osteomyelitis and maceration of her bottom.?Cellulitis was treated with cefepime, metronidazole, and vancomycin. Discharged to [facility] and transitioned to oral atb - Augmentin and Doxycycline x14 days. Initial VS at presentation: 97.9 F, HR 108, RR 20, 145/67, 100% on RA. ED workup showed no leukocytosis, no significant anemia, creatinine 2.3 (previously 3.1 on 05/06), glucose 132 hold, and UA consistent with UTI. Viral PCR negative for flu, COVID, RSV. Review of Systems Review of Systems: All systems reviewed & are unremarkable except as noted in HPI and below PMFSH Past Medical History Medical History Aortic stenosis Benign essential hypertension Body mass index (BMI) 45.0-49.9, adult Chronic kidney disease, stage 3 Degenerative joint disease Diastolic congestive heart failure Essential hypertension Hyperlipidemia Hypothyroidism (acquired) Murmur, heart PHYLICIA on CPAP Peripheral vascular disease Tachycardia Type 2 diabetes mellitus Vitamin D deficiency Surgical History Surgical History History of bladder repair surgery For bladder prolapse. Family History Family History Mother Hypertension, Onset Age: 70 Cerebrovascular accident Patient's mother is Sibling Carcinoma of colon Other Family history of arthritis Family history of coronary artery disease Social History Social History Social History: Surrogate medical decision maker: Dago North, spouse. Code status: Full code. Smoking status: Never smoker Second hand tobacco smoke exposure: No Alcohol intake: never Substance use: never Substance use type: does not use Do You Feel Safe in your Home?: Yes Lack of Transportation: No Lack of Food: Never True Current Housing: I Have Housing Concerned About Future Housing: No Difficulty Paying Gas/Electric Bills: No Difficulty Paying for Meds: No Currently Unemployed: No Education: Trade/Vocational Certificate Difficulty w/ Childcare or Family Care: No Additional living arrangements comments: Lives with spouse in [place]. Spiritual care concerns: No Meds Home Medications and Allergies Home Medications Medication Instructions Recorded Confirmed Type cholecalciferol (vitamin D3) 50 50 mcg PO MONTHLY 12/18/22 05/09/23 History mcg (2,000 unit) capsule diphenhydramine HCl 25 mg tablet 12.5 mg PO PRN PRN Itching 01/07/23 05/09/23 History (Benadryl Allergy) dapagliflozin propanediol 5 mg 5 mg PO DAILY #30 tabs 01/28/23 05/09/23 Rx tablet (Farxiga) Lactobacillus acidophilus 10 10,000 mmu cells PO DAILY #10 caps 04/08/23
--- NOTE | 2023-05-09 13:59 | ADMGEN ---
This patient, Racheal North, was admitted to 2 Medical Room 256-. Patient/family oriented to hospital policies and general routines including ID bracelet, bed and alarms, visiting hours, pain management, procedures, bathroom and other care routines, personal items, smoking policy, room service/diet, and visiting hours. Information on how to activate the Rapid Response Team has been discussed. Patient/Family are encouraged to report perceived risks to care and to ask questions if they do not understand what they are told or what they should do.
[2023-05-09] MEDS: COLLAGENASE OINT 30 GM TUBE 1 APPLIC TOPICAL (16:37)
[2023-05-09] MEDS: TOLNAFTATE 1% POWDER 45 GM BTL 1 APPLIC TOPICAL ×2 (16:37→21:26)
--- NOTE | 2023-05-09 17:06 | PC.NURSE ---
Krysten Jordan NP notified of heart rate in [address] on tele. Patient asymptomatic
[2023-05-09] MEDS: PIPERACILLIN/TAZ 2.25G/NS 50ML 2.25 GM/50 ML BAG IVPB ×2 (17:21→23:03)
[2023-05-09 23:09] LABS: Glucose Point of Care 122 mg/dl (65-105)
[2023-05-10] VITALS (11 sets, daily range): BP systolic 134–154; BP diastolic 51–60; PULSE 96–135; RESP 16–18; TEMP 36.5–36.9; O2SAT 93–96
[2023-05-10 05:14] LABS: Basophils Absolute Auto 0.1 K/mm3 (0.0-0.1); Basophils Percent Auto 1.1 % (0.2-1.2); Eosinophils Absolute Auto 0.1 K/mm3 (0-0.3); Hematocrit 34.1 % (37.0-47.0); Hemoglobin 10.8 g/dL (12.0-15.0); Immature Granulocyte Absolute 0.03 K/mm3 (0.00-0.031); Immature Granulocyte Percent A 0.4 % (0-0.5); Lymphocytes Absolute Auto 1.45 K/mm3 (0.9-3.2); Lymphocytes Percent Auto 18.1 % (18.3-44.2); Mean Corpuscular HGB Conc 31.7 g/dl (32-36); Mean Corpuscular Hemoglobin 27.4 pg (26-34); Mean Corpuscular Volume 86.5 fl (80-100); Mean Platelet Volume 10.5 fl (7.4-10.4); Monocytes Absolute Auto 0.9 K/mm3 (0.1-0.6); Monocytes Percent Auto 11.6 % (2.6-8.5); Neutrophils Absolute Auto 5.4 K/mm3 (1.3-6.7); Neutrophils Percent Auto 67.8 % (45.5-73.1); Platelet Count Result 405 k/mm3 (150-375); Red Blood Count 3.94 M/mm3 (4.2-5.4); Red Cell Distribution Width 16.5 % (11.5-14.5)
[2023-05-10 05:33] LABS: Alanine Aminotransferase 11 U/L (6-35); Albumin Level 3.4 g/dL (3.5-5.1); Alkaline Phosphatase 64 U/L (38-126); Anion Gap 8 mmol/L (8-16); Aspartate Amino Transferase 36 U/L (14-36); Bilirubin,Total 0.5 mg/dL (0.2-1.3); Blood Urea Nitrogen 32 mg/dL (7-17); Calcium 9.5 mg/dL (8.4-10.2); Carbon Dioxide 25 mmol/L (22-30); Chloride 101 mmol/L (98-107); Estimated CRCL calculation 26 ml/min; Estimated Glomerular Filt Rate 24; Glucose 104 mg/dL (65-110); Magnesium 1.6 mg/dL (1.6-2.3); Potassium 3.9 mmol/L (3.4-5.0); Sodium 134 mmol/L (137-145)
[2023-05-10] MEDS: LEVOTHYROXINE SODIUM 100 MCG TABLET 200 MCG PO (05:40)
[2023-05-10 08:28] LABS: Glucose Point of Care 114 mg/dl (65-105)
[2023-05-10] MEDS: ACIDOPHILUS/BULGARICUS CHEWABLE TABLET 1 TABLET PO (08:48)
[2023-05-10] MEDS: hydroCHLOROthiazide 12.5 MG CAPSULE PO (08:48)
[2023-05-10] MEDS: SPIRONOLACTONE 25 MG TABLET PO (08:50)
[2023-05-10] MEDS: cilostazoL 100 MG TABLET PO ×2 (08:50→16:17)
[2023-05-10] MEDS: EMPAGLIFLOZIN 10 MG TABLET PO (08:50)
[2023-05-10] MEDS: lisinopriL 10 MG TABLET PO (08:50)
[2023-05-10] MEDS: FUROSEMIDE 20 MG TABLET 60 MG PO (08:50)
[2023-05-10] MEDS: POTASSIUM CHLORIDE 20 MEQ PACKET (FOR LIQUID) PO (08:50)
[2023-05-10] MEDS: METOPROLOL SUCCINATE EXT REL 12.5 MG TABCR PO (08:50)
[2023-05-10] MEDS: ENOXAPARIN 30 MG/0.3 ML SYRINGE SUB-Q (08:51)
[2023-05-10] MEDS: ONDANSETRON INJ 4 MG/2 ML VIAL IV PUSH (09:00)
[2023-05-10 12:07] LABS: Glucose Point of Care 135 mg/dl (65-105)
[2023-05-10] MEDS: TOLNAFTATE 1% POWDER 45 GM BTL 1 APPLIC TOPICAL ×2 (12:14→21:38)
[2023-05-10] MEDS: PIPERACILLIN/TAZ 2.25G/NS 50ML 2.25 GM/50 ML BAG IVPB ×3 (12:14→23:36)
[2023-05-10] MEDS: COLLAGENASE OINT 30 GM TUBE 1 APPLIC TOPICAL (12:15)
[2023-05-10] MEDS: HYDROcodone/acetaminophen (*CRX) 5-325 MG TABLET 1 TAB PO (14:12)
[2023-05-10 17:27] LABS: Glucose Point of Care 147 mg/dl (65-105)
--- NOTE | 2023-05-10 17:46 | PM.IMPN ---
Progress Note: A&P Assessment and Plan (1) Sepsis: Code(s): A41.9 - Sepsis, unspecified organism Status: Acute Assessment and Plan: - meets SIRS criteria: HR and RR. No leukocytosis and afebrile. BP normotensive. - lactic acid 1.7 - blood cultures obtained on 05/08 - urine culture obtained on 05/08 - UA consistent with UTI, started on Zosyn based off most recent UC sensitivities (2) UTI (urinary tract infection): Qualifiers: Urinary tract infection type: site unspecified Hematuria presence: without hematuria Qualified Code(s): N39.0 - Urinary tract infection, site not specified Code(s): N39.0 - Urinary tract infection, site not specified Status: Acute Assessment and Plan: - UA: - urine culture obtained on 05/08 - review of micro 04/09 - BC, no growth 04/05 - BC, no growth 04/03 - BC, Group A Strep 04/03 - UC, E. Coli that is MDR (Bactrim, Cipro, Ceftriaxone, Levaquin, Ancef) 12/10 - UC, E. Coli that is MDR (Bactrim, Cefepime, Cipro, Ceftriaxone, Levaquin, Ancef) - started on Zosyn based off most recent UC sensitivities ... Monitor recent cultures (3) Stasis ulcer: Qualifiers: Venous stasis ulcer site: calf Laterality: right Code(s): I83.009 - Varicose veins of unspecified lower extremity with ulcer of unspecified site; L97.909 - Non-pressure chronic ulcer of unspecified part of unspecified lower leg with unspecified severity Status: Acute Assessment and Plan: - shallow/wide wound to R calf, small 1 cm ulceration to R posterior calf, and small 1 cm ulceration to dorsal aspect of R foot. - wound RN has assessed - continue wound care per their recommendations - wound care consult ordered for follow-up (4) Diastolic congestive heart failure: Code(s): I50.30 - Unspecified diastolic (congestive) heart failure Status: Acute Assessment and Plan: - continue diuresis: Lasix 60 mg p.o. daily, spironolactone 25 mg p.o. daily - monitor I&Os - daily weights - monitor renal function and electrolytes - euvolemic on exam, trace to 1+ edema to BLE (5) Chronic kidney disease, stage 3: Code(s): N18.30 - Chronic kidney disease, stage 3 unspecified Status: Acute Assessment and Plan: - creatinine slowly improving 2.3 - 2 - previously 3.1 on 05/06 - trend renal function (6) DM type 2 (diabetes mellitus, type 2): Qualifiers: Diabetes mellitus long term care pharmacist insulin use: unspecified long term care pharmacist insulin use status Diabetes mellitus complication status: without complication Qualified Code(s): E11.9 - Type 2 diabetes mellitus without complications Code(s): E11.9 - Type 2 diabetes mellitus without complications Status: Acute Assessment and Plan: - hypoglycemia protocol - POC blood glucose ACHS - home medication resumed/held - continue Farxiga - correct regimen ordered - low dose TIDWM and HS - A1C 6.4% 04/28/23 Plan Patient here for treatment of UTI. Has hx of multidrug resistant UTI. Started on Zosyn on 05/08. Urine culture pending. Known wounds to RLE and buttocks, improving since previous admission. -IV magnesium sulfate replacement ordered for borderline magnesium level Diet: Heart Healthy GI Prophylaxis: not currently indicated DVT Prophylaxis: Lovenox 30 Lines: pIV Code Status: Full Code Time Spent With Patient Time with patient: 15 - 25 minutes Subjective Date/time seen: 05/10/23 17:46 Interval history: Patient came back with recurrence of UTI. She is well-known to our service. Remains tired & fatigued Review of Systems Review of Systems: Unable to be obtained. Patient is pleasantly confused ROS unobtainable: Yes unobtainable due to mental status Exam Narrative: A/Ox self and year. Some situational confusion and provided incorrect place. Slow to respond/answer questions. wide shallow ulceration to R posterior calf, wound bed white a
[2023-05-10] MEDS: MAGNESIUM SULF 2 GM/WATER 50ML 2 GM/50 ML BAG IVPB (18:25)
[2023-05-10 22:45] LABS: Glucose Point of Care 114 mg/dl (65-105)
[2023-05-11] VITALS (10 sets, daily range): BP systolic 104–142; BP diastolic 51–59; PULSE 83–120; RESP 16–18; TEMP 36.2–36.6; O2SAT 93–98
[2023-05-11 05:06] LABS: Basophils Absolute Auto 0.1 K/mm3 (0.0-0.1); Basophils Percent Auto 1.6 % (0.2-1.2); Eosinophils Absolute Auto 0.2 K/mm3 (0-0.3); Eosinophils Percent Auto 2.6 % (0-4.4); Hemoglobin 11.1 g/dL (12.0-15.0); Immature Granulocyte Absolute 0.02 K/mm3 (0.00-0.031); Immature Granulocyte Percent A 0.3 % (0-0.5); Lymphocytes Absolute Auto 1.63 K/mm3 (0.9-3.2); Lymphocytes Percent Auto 23.4 % (18.3-44.2); Mean Corpuscular HGB Conc 30.8 g/dl (32-36); Mean Corpuscular Hemoglobin 27.1 pg (26-34); Mean Corpuscular Volume 87.8 fl (80-100); Mean Platelet Volume 10.4 fl (7.4-10.4); Monocytes Absolute Auto 0.9 K/mm3 (0.1-0.6); Monocytes Percent Auto 12.5 % (2.6-8.5); Neutrophils Absolute Auto 4.2 K/mm3 (1.3-6.7); Neutrophils Percent Auto 59.6 % (45.5-73.1); Platelet Count Result 391 k/mm3 (150-375); Red Cell Distribution Width 16.6 % (11.5-14.5)
[2023-05-11 05:18] LABS: Anion Gap 12 mmol/L (8-16); Blood Urea Nitrogen 31 mg/dL (7-17); Calcium 9.6 mg/dL (8.4-10.2); Carbon Dioxide 24 mmol/L (22-30); Chloride 101 mmol/L (98-107); Estimated CRCL calculation 21 ml/min; Estimated Glomerular Filt Rate 21; Glucose 106 mg/dL (65-110); Magnesium 2.4 mg/dL (1.6-2.3); Phosphorus 3.7 mg/dL (2.5-4.5); Potassium 3.8 mmol/L (3.4-5.0); Sodium 137 mmol/L (137-145)
[2023-05-11] MEDS: PIPERACILLIN/TAZ 2.25G/NS 50ML 2.25 GM/50 ML BAG IVPB ×3 (05:38→17:00)
[2023-05-11] MEDS: LEVOTHYROXINE SODIUM 100 MCG TABLET 200 MCG PO (05:38)
[2023-05-11 08:22] LABS: Glucose Point of Care 118 mg/dl (65-105)
[2023-05-11] MEDS: SPIRONOLACTONE 25 MG TABLET PO (08:41)
[2023-05-11] MEDS: cilostazoL 100 MG TABLET PO ×2 (08:41→17:00)
[2023-05-11] MEDS: hydroCHLOROthiazide 12.5 MG CAPSULE PO (08:41)
[2023-05-11] MEDS: ENOXAPARIN 30 MG/0.3 ML SYRINGE SUB-Q (08:41)
[2023-05-11] MEDS: ACIDOPHILUS/BULGARICUS CHEWABLE TABLET 1 TABLET PO (08:41)
[2023-05-11] MEDS: lisinopriL 10 MG TABLET PO (08:41)
[2023-05-11] MEDS: METOPROLOL SUCCINATE EXT REL 12.5 MG TABCR PO (08:41)
[2023-05-11] MEDS: COLLAGENASE OINT 30 GM TUBE 1 APPLIC TOPICAL (08:41)
[2023-05-11] MEDS: EMPAGLIFLOZIN 10 MG TABLET PO (08:41)
[2023-05-11] MEDS: FUROSEMIDE 20 MG TABLET 60 MG PO (08:41)
[2023-05-11] MEDS: TOLNAFTATE 1% POWDER 45 GM BTL 1 APPLIC TOPICAL ×2 (08:41→20:01)
[2023-05-11] MEDS: POTASSIUM CHLORIDE 20 MEQ PACKET (FOR LIQUID) PO (08:41)
[2023-05-11] MEDS: ACETAMINOPHEN 325 MG TABLET 650 MG PO (09:08)
--- NOTE | 2023-05-11 10:55 | PM.CNNEP ---
Assessment and Plan Assessment and plan (1) Acute kidney injury: Code(s): N17.9 - Acute kidney failure, unspecified Status: Acute Assessment and Plan: relatively stble since admisison outpatient labs noted creatinine of 3.1mg/dl on 04/26 and 05/06/23 admission creatinine 2.3mg/dl presumably due to infection (wounds + UTI) in the context of chronic diuretic therapy (HCTZ + spironolactone) along with XUAN-I use drug reaction?? -- has been on multiple antibiotics in the last coiuple of months check renal ultrasound check urine studies and CPK maria c hold lisinopril and HCTZ + spironolactone watch volume status given history of CHF consider trial of IVFs follow repeat labs and UOP (2) Stage 3a chronic kidney disease: Code(s): N18.31 - Chronic kidney disease, stage 3a Status: Chronic Assessment and Plan: baseline creatinine seems to rub around 1.0 - 1.1mg/dl presumably due to HTN, DM, PVD, diastolic CHF, PHYLICIA and age-related change (3) UTI (urinary tract infection): Qualifiers: Hematuria presence: without hematuria Urinary tract infection type: site unspecified Qualified Code(s): N39.0 - Urinary tract infection, site not specified Code(s): N39.0 - Urinary tract infection, site not specified Status: Acute Assessment and Plan: admission UA highly suggestive urine culture with E.coli on antibiotics (4) Stasis ulcer: Qualifiers: Laterality: right Venous stasis ulcer site: calf Code(s): I83.009 - Varicose veins of unspecified lower extremity with ulcer of unspecified site; L97.909 - Non-pressure chronic ulcer of unspecified part of unspecified lower leg with unspecified severity Status: Acute Assessment and Plan: noted on right posterior calf and dorsal aspect of right foot wound care following on antibiotics already (5) Diastolic congestive heart failure: Code(s): I50.30 - Unspecified diastolic (congestive) heart failure Status: Acute Assessment and Plan: appears compensated/euvolemic at this time waas lasix and spironolactone consider holding diuretic dosage given #1(?) (6) DM type 2 (diabetes mellitus, type 2): Qualifiers: Diabetes mellitus complication status: without complication Diabetes mellitus snf insulin use: unspecified supervisor intermediates insulin use status Qualified Code(s): E11.9 - Type 2 diabetes mellitus without complications Code(s): E11.9 - Type 2 diabetes mellitus without complications Status: Acute Assessment and Plan: follow accu-checks glycemic control per hospitalists I will continue follow patient with you while she remains hospitalized and make further recommendations as deemed necessary. Thank you for allowing me to participate in the care of this patient. History of Present Illness Reason for Consult Consult date: 05/11/23 Reason for consult: acute renal failure (on chronic kidney disease) Chief Complaint Chief complaint: Urinary Tract Infection/Generalized Weakness/Tachy History of Present Illness Narrative: A great deal of the information that I have obtained is from review of the electronic medical record as well as discussion with the physician/ nurses involved in the patient's care as well as discussion with family at bedside as is difficult to get a full and complete history from the patient as she is not the best historian. The patient is a 78-year-old female with a past medical history as outlined below who presented to [facility] Emergency room with complaints of generalized weakness and fatigue. It is difficult to ascertain how long the weakness and fatigue have been going on particularly given her recent hospitalizations here at [facility]. She was hospitalized in late March of this year for a multi drug-resistant urinary tract infection in association with group a Streptococcus bacteremia
--- NOTE | 2023-05-11 10:55 | P.CONNP_ITS ---
Assessment and Plan Assessment and plan (1) Acute kidney injury: Code(s): N17.9 - Acute kidney failure, unspecified Status: Acute Assessment and Plan: * relatively stble since admisison * outpatient labs noted creatinine of 3.1mg/dl on 04/26 and 05/06/23 * admission creatinine 2.3mg/dl * presumably due to infection (wounds + UTI) in the context of chronic diuretic therapy (HCTZ + spironolactone) along with XUAN-I use * drug reaction?? -- has been on multiple antibiotics in the last coiuple of months * check renal ultrasound * check urine studies and CPK * maria c hold lisinopril and HCTZ + spironolactone * watch volume status given history of CHF * consider trial of IVFs * follow repeat labs and UOP (2) Stage 3a chronic kidney disease: Code(s): N18.31 - Chronic kidney disease, stage 3a Status: Chronic Assessment and Plan: * baseline creatinine seems to rub around 1.0 - 1.1mg/dl * presumably due to HTN, DM, PVD, diastolic CHF, PHYLICIA and age-related change (3) UTI (urinary tract infection): Qualifiers: Hematuria presence: without hematuria Urinary tract infection type: site unspecified Qualified Code(s): N39.0 - Urinary tract infection, site not specified Code(s): N39.0 - Urinary tract infection, site not specified Status: Acute Assessment and Plan: * admission UA highly suggestive * urine culture with E.coli * on antibiotics (4) Stasis ulcer: Qualifiers: Laterality: right Venous stasis ulcer site: calf Code(s): I83.009 - Varicose veins of unspecified lower extremity with ulcer of unspecified site; L97.909 - Non-pressure chronic ulcer of unspecified part of unspecified lower leg with unspecified severity Status: Acute Assessment and Plan: * noted on right posterior calf and dorsal aspect of right foot * wound care following * on antibiotics already (5) Diastolic congestive heart failure: Code(s): I50.30 - Unspecified diastolic (congestive) heart failure Status: Acute Assessment and Plan: * appears compensated/euvolemic at this time * waas lasix and spironolactone * consider holding diuretic dosage given #1(?) (6) DM type 2 (diabetes mellitus, type 2): Qualifiers: Diabetes mellitus complication status: without complication Diabetes mellitus intermediate manager insulin use: unspecified longterm insulin use status Qualified Code(s): E11.9 - Type 2 diabetes mellitus without complications Code(s): E11.9 - Type 2 diabetes mellitus without complications Status: Acute Assessment and Plan: * follow accu-checks * glycemic control per hospitalists I will continue follow patient with you while she remains hospitalized and make further recommendations as deemed necessary. Thank you for allowing me to participate in the care of this patient. History of Present Illness Reason for Consult Consult date: 05/11/23 Reason for consult: acute renal failure (on chronic kidney disease) Chief Complaint Chief complaint: Urinary Tract Infection/Generalized Weakness/Tachy History of Present Illness Narrative: A great deal of the information that I have obtained is from review of the electronic medical record as well as discussion with the physician/ nurses invol justice in the patient's care as well as discussion with family at bedside as is difficult to get a full and complete history from the patient as she is not the best historian. The patient is a 78-year-old female with a past medical history as outlin
[2023-05-11 12:11] LABS: Glucose Point of Care 161 mg/dl (65-105)
--- NOTE | 2023-05-11 15:12 | PM.IMPN ---
Progress Note: A&P Assessment and Plan (1) Sepsis: Code(s): A41.9 - Sepsis, unspecified organism Status: Acute Assessment and Plan: - meets SIRS criteria: HR and RR. No leukocytosis and afebrile. BP normotensive. - lactic acid 1.7 - blood cultures obtained on 05/08 which are negative so far - UA consistent with UTI, started on Zosyn based off most recent UC sensitivities - urine culture obtained on 05/08 ... Growing multiresistant E coli sensitive to IV Zosyn (2) UTI (urinary tract infection): Qualifiers: Urinary tract infection type: site unspecified Hematuria presence: without hematuria Qualified Code(s): N39.0 - Urinary tract infection, site not specified Code(s): N39.0 - Urinary tract infection, site not specified Status: Acute Assessment and Plan: - UA: - urine culture obtained on 05/08 - review of micro 05/08 - UC, multidrug resistant E.Coli 05/08 - BC, no growth 04/09 - BC, no growth 04/05 - BC, no growth 04/03 - BC, Group A Strep 04/03 - UC, E. Coli that is MDR (Bactrim, Cipro, Ceftriaxone, Levaquin, Ancef) 12/10 - UC, E. Coli that is MDR (Bactrim, Cefepime, Cipro, Ceftriaxone, Levaquin, Ancef) - started on Zosyn based off most recent UC sensitivities ... Monitor recent cultures (3) Stasis ulcer: Qualifiers: Venous stasis ulcer site: calf Laterality: right Code(s): I83.009 - Varicose veins of unspecified lower extremity with ulcer of unspecified site; L97.909 - Non-pressure chronic ulcer of unspecified part of unspecified lower leg with unspecified severity Status: Acute Assessment and Plan: - shallow/wide wound to R calf, small 1 cm ulceration to R posterior calf, and small 1 cm ulceration to dorsal aspect of R foot. - wound RN has assessed - continue wound care per their recommendations - wound care consult ordered for follow-up (4) Diastolic congestive heart failure: Code(s): I50.30 - Unspecified diastolic (congestive) heart failure Status: Acute Assessment and Plan: - continue diuresis: Lasix 60 mg p.o. daily, spironolactone 25 mg p.o. daily - monitor I&Os - daily weights - monitor renal function and electrolytes - euvolemic on exam, trace to 1+ edema to BLE (5) Chronic kidney disease, stage 3: Code(s): N18.30 - Chronic kidney disease, stage 3 unspecified Status: Acute Assessment and Plan: - creatinine slowly improving 2.3 - 2 -2.3 - previously 3.1 on 05/06 - trend renal functions (6) DM type 2 (diabetes mellitus, type 2): Qualifiers: Diabetes mellitus fdc insulin use: unspecified fdc insulin use status Diabetes mellitus complication status: without complication Qualified Code(s): E11.9 - Type 2 diabetes mellitus without complications Code(s): E11.9 - Type 2 diabetes mellitus without complications Status: Acute Assessment and Plan: - hypoglycemia protocol - POC blood glucose ACHS - home medication resumed/held - continue Farxiga - correct regimen ordered - low dose TIDWM and HS - A1C 6.4% 04/28/23 Plan Patient here for treatment of UTI. Has hx of multidrug resistant UTIs. Started on Zosyn on 05/08. Urine culture growing multi-drug resistant E coli. Known wounds to RLE and buttocks, improving since previous admission. - IV magnesium sulfate replacement ordered for borderline magnesium level -spoke with Case Management. Ordered PT/OT evaluation. Patient would be better served with placement in monitored setting like assisted living facility Diet: Heart Healthy GI Prophylaxis: not currently indicated DVT Prophylaxis: Lovenox 30, SCDs Lines: pIV Code Status: Full Code I am signing off. Patient's medical care will be taken over by my covering hospitalist attending in am. Time Spent With Patient Time with patient: 15 - 25 minutes Subjective Date/time seen: 05/11/23 15:12 Interval history: Patient s
[2023-05-11 17:40] LABS: Glucose Point of Care 157 mg/dl (65-105)
[2023-05-11 21:52] LABS: Glucose Point of Care 132 mg/dl (65-105)
[2023-05-12] VITALS (10 sets, daily range): BP systolic 101–138; BP diastolic 45–49; PULSE 102–127; RESP 12–18; TEMP 36.4–36.9; O2SAT 93–98
[2023-05-12] MEDS: PIPERACILLIN/TAZ 2.25G/NS 50ML 2.25 GM/50 ML BAG IVPB ×5 (00:12→23:01)
[2023-05-12 05:21] LABS: Basophils Absolute Auto 0.1 K/mm3 (0.0-0.1); Basophils Percent Auto 1.4 % (0.2-1.2); Eosinophils Absolute Auto 0.1 K/mm3 (0-0.3); Eosinophils Percent Auto 1.4 % (0-4.4); Hematocrit 34.4 % (37.0-47.0); Hemoglobin 10.8 g/dL (12.0-15.0); Immature Granulocyte Absolute 0.04 K/mm3 (0.00-0.031); Immature Granulocyte Percent A 0.6 % (0-0.5); Lymphocytes Absolute Auto 1.51 K/mm3 (0.9-3.2); Lymphocytes Percent Auto 21.3 % (18.3-44.2); Mean Corpuscular HGB Conc 31.4 g/dl (32-36); Mean Corpuscular Hemoglobin 27.1 pg (26-34); Mean Corpuscular Volume 86.2 fl (80-100); Monocytes Absolute Auto 0.9 K/mm3 (0.1-0.6); Monocytes Percent Auto 12.8 % (2.6-8.5); Neutrophils Absolute Auto 4.4 K/mm3 (1.3-6.7); Neutrophils Percent Auto 62.5 % (45.5-73.1); Platelet Count Result 389 k/mm3 (150-375); Red Blood Count 3.99 M/mm3 (4.2-5.4); Red Cell Distribution Width 16.4 % (11.5-14.5); White Blood Count 7.1 K/mm3 (4.5-10.0)
[2023-05-12] MEDS: LEVOTHYROXINE SODIUM 100 MCG TABLET 200 MCG PO (05:31)
[2023-05-12 05:42] LABS: Anion Gap 10 mmol/L (8-16); Blood Urea Nitrogen 31 mg/dL (7-17); Calcium 9.7 mg/dL (8.4-10.2); Carbon Dioxide 24 mmol/L (22-30); Chloride 100 mmol/L (98-107); Creatine Kinase 115 U/L (30-135); Estimated CRCL calculation 24 ml/min; Estimated Glomerular Filt Rate 24; Glucose 119 mg/dL (65-110); Sodium 134 mmol/L (137-145)
[2023-05-12 06:32] LABS: Thyroid Stimulating Hormone Reflex 0.161 uIU/mL (0.465-4.68)
[2023-05-12 07:25] LABS: Eosinophil Urine None Seen % (None Seen); Urine Eos QC 2nd Tech Confirmed
[2023-05-12 07:28] LABS: Creatinine Urine 57.9 mg/dL; Total Protein Urine Random 41 mg/dL; Ur Ttl Prot Creatinine Ratio 0.71 mg/mg (0-0.20); Urea Random Urine 263 MG/DL
[2023-05-12 07:31] LABS: Sodium Urine Random 80 meq/L
[2023-05-12 08:08] LABS: Glucose Point of Care 110 mg/dl (65-105)
[2023-05-12 08:16] LABS: Free T4 Free Thyroxine Reflex 2.09 ng/dL (0.78-2.19)
[2023-05-12] MEDS: FUROSEMIDE 20 MG TABLET 60 MG PO (08:21)
[2023-05-12] MEDS: SPIRONOLACTONE 25 MG TABLET PO (08:21)
[2023-05-12] MEDS: METOPROLOL SUCCINATE EXT REL 12.5 MG TABCR PO (08:21)
[2023-05-12] MEDS: ACIDOPHILUS/BULGARICUS CHEWABLE TABLET 1 TABLET PO (08:21)
[2023-05-12] MEDS: hydroCHLOROthiazide 12.5 MG CAPSULE PO (08:21)
[2023-05-12] MEDS: EMPAGLIFLOZIN 10 MG TABLET PO (08:21)
[2023-05-12] MEDS: lisinopriL 10 MG TABLET PO (08:21)
[2023-05-12] MEDS: POTASSIUM CHLORIDE 20 MEQ PACKET (FOR LIQUID) PO (08:21)
[2023-05-12] MEDS: cilostazoL 100 MG TABLET PO ×2 (08:21→17:04)
[2023-05-12] MEDS: ENOXAPARIN 30 MG/0.3 ML SYRINGE SUB-Q (08:21)
[2023-05-12] MEDS: TOLNAFTATE 1% POWDER 45 GM BTL 1 APPLIC TOPICAL ×2 (08:22→20:27)
[2023-05-12] MEDS: COLLAGENASE OINT 30 GM TUBE 1 APPLIC TOPICAL (08:22)
--- NOTE | 2023-05-12 11:02 | P.PNNP_ITS ---
Progress Note: A&P Assessment and Plan (1) Acute kidney injury: Code(s): N17.9 - Acute kidney failure, unspecified Status: Acute Assessment and Plan: * relatively stable since admisison * outpatient labs noted creatinine of 3.1mg/dl on 04/26 and 05/06/23 * admission creatinine 2.3mg/dl * presumably due to infection (wounds + UTI) in the context of chronic diuretic therapy (HCTZ + spironolactone) along with XUAN-I use * drug reaction?? 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 * evaluation to date: * urine electrolytes (by FeUrea) are prerenal * urine eosinophils negative * CPK okay * UA c/w with infection * maria c hold lisinopril and HCTZ + spironolactone * watch volume status given history of CHF * consider trial of IVFs * follow repeat labs and UOP (2) Stage 3a chronic kidney disease: Code(s): N18.31 - Chronic kidney disease, stage 3a Status: Chronic Assessment and Plan: * baseline creatinine seems to rub around 1.0 - 1.1mg/dl * presumably due to HTN, DM, PVD, diastolic CHF, PHYLICIA and age-related change (3) UTI (urinary tract infection): Qualifiers: Urinary tract infection type: site unspecified Hematuria presence: without hematuria Qualified Code(s): N39.0 - Urinary tract infection, site not specified Code(s): N39.0 - Urinary tract infection, site not specified Status: Acute Assessment and Plan: * admission UA highly suggestive * urine culture with E.coli * on antibiotics (4) Stasis ulcer: Qualifiers: Venous stasis ulcer site: calf Laterality: right Code(s): I83.009 - Varicose veins of unspecified lower extremity with ulcer of unspecified site; L97.909 - Non-pressure chronic ulcer of unspecified part of unspecified lower leg with unspecified severity Status: Acute Assessment and Plan: * noted on right posterior calf and dorsal aspect of right foot * wound care following * on antibiotics already (5) Diastolic congestive heart failure: Code(s): I50.30 - Unspecified diastolic (congestive) heart failure Status: Acute Assessment and Plan: * appears compensated/euvolemic at this time * was lasix and spironolactone * consider holding diuretic dosage given #1(?) (6) DM type 2 (diabetes mellitus, type 2): Qualifiers: Diabetes mellitus extermination inspector insulin use: unspecified extermination inspector insulin use status Diabetes mellitus complication status: without complication Qualified Code(s): E11.9 - Type 2 diabetes mellitus without complications Code(s): E11.9 - Type 2 diabetes mellitus without complications Status: Acute Assessment and Plan: * follow accu-checks * glycemic control per hospitalists Will continue to follow Subjective Date/time seen: 05/12/23 11:02 Interval history: Follow-up for acute kidney injury/acute renal failure on chronic kidney disease. Still with fluctuating mentation per nursing; responsvie when seen but slow to respond to questions; suboptimal oral intake noted as well (presumably seconary to poor mentation); no other acute issues/events noted. Exam Narrative: General: elderly female in NAD Heart: normal S1 and S2; no rub Lungs: clear to auscultation Abdomen: soft, nontender, nondistended, positive bowel sounds Extremities: no cyanosis or clubbing; no edema Skin: warm and dry
--- NOTE | 2023-05-12 11:02 | PM.PNNEP ---
Progress Note: A&P Assessment and Plan (1) Acute kidney injury: Code(s): N17.9 - Acute kidney failure, unspecified Status: Acute Assessment and Plan: relatively stable since admisison outpatient labs noted creatinine of 3.1mg/dl on 04/26 and 05/06/23 admission creatinine 2.3mg/dl presumably due to infection (wounds + UTI) in the context of chronic diuretic therapy (HCTZ + spironolactone) along with XUAN-I use drug reaction?? 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 evaluation to date: urine electrolytes (by FeUrea) are prerenal urine eosinophils negative CPK okay UA c/w with infection maria c hold lisinopril and HCTZ + spironolactone watch volume status given history of CHF consider trial of IVFs follow repeat labs and UOP (2) Stage 3a chronic kidney disease: Code(s): N18.31 - Chronic kidney disease, stage 3a Status: Chronic Assessment and Plan: baseline creatinine seems to rub around 1.0 - 1.1mg/dl presumably due to HTN, DM, PVD, diastolic CHF, PHYLICIA and age-related change (3) UTI (urinary tract infection): Qualifiers: Urinary tract infection type: site unspecified Hematuria presence: without hematuria Qualified Code(s): N39.0 - Urinary tract infection, site not specified Code(s): N39.0 - Urinary tract infection, site not specified Status: Acute Assessment and Plan: admission UA highly suggestive urine culture with E.coli on antibiotics (4) Stasis ulcer: Qualifiers: Venous stasis ulcer site: calf Laterality: right Code(s): I83.009 - Varicose veins of unspecified lower extremity with ulcer of unspecified site; L97.909 - Non-pressure chronic ulcer of unspecified part of unspecified lower leg with unspecified severity Status: Acute Assessment and Plan: noted on right posterior calf and dorsal aspect of right foot wound care following on antibiotics already (5) Diastolic congestive heart failure: Code(s): I50.30 - Unspecified diastolic (congestive) heart failure Status: Acute Assessment and Plan: appears compensated/euvolemic at this time was lasix and spironolactone consider holding diuretic dosage given #1(?) (6) DM type 2 (diabetes mellitus, type 2): Qualifiers: Diabetes mellitus phlebotomy manager insulin use: unspecified senior living insulin use status Diabetes mellitus complication status: without complication Qualified Code(s): E11.9 - Type 2 diabetes mellitus without complications Code(s): E11.9 - Type 2 diabetes mellitus without complications Status: Acute Assessment and Plan: follow accu-checks glycemic control per hospitalists Will continue to follow Subjective Date/time seen: 05/12/23 11:02 Interval history: Follow-up for acute kidney injury/acute renal failure on chronic kidney disease. Still with fluctuating mentation per nursing; responsvie when seen but slow to respond to questions; suboptimal oral intake noted as well (presumably seconary to poor mentation); no other acute issues/events noted. Exam Narrative: General: elderly female in NAD Heart: normal S1 and S2; no rub Lungs: clear to auscultation Abdomen: soft, nontender, nondistended, positive bowel sounds Extremities: no cyanosis or clubbing; no edema Skin: warm and dry Objective Data Vital Signs Vital Signs: Vital Signs Temp Pulse Resp BP Pulse Ox O2 Del Method 05/12/23 11:00 106 H 05/12/23 08:45 Room Air 05/12/23 08:45 102 H 05/12/23 08:41 95 Room Air 05/12/23 05:38 97.5 F L 110 H 18 138/45 L 95 05/12/23 04:03 108 H 05/12/23 00:01 118 H 05/11/23 22:00 97.1 F L 83 18 104/56 L 98 05/11/23 20:03 106 H 05/11/23 20:00 99 16 98 Room Air 05/11/23 16:00
--- NOTE | 2023-05-12 11:33 | PM.IMPN ---
Progress Note: A&P Assessment and Plan (1) Sepsis: Code(s): A41.9 - Sepsis, unspecified organism Status: Acute Assessment and Plan: Associated with sepsis present on admission reviewed culture results continue IV Zosyn (2) UTI (urinary tract infection): Qualifiers: Urinary tract infection type: site unspecified Hematuria presence: without hematuria Qualified Code(s): N39.0 - Urinary tract infection, site not specified Code(s): N39.0 - Urinary tract infection, site not specified Status: Acute Assessment and Plan: - UA: - urine culture obtained on 05/08 - review of micro 05/08 - UC, multidrug resistant E.Coli 05/08 - BC, no growth 04/09 - BC, no growth 04/05 - BC, no growth 04/03 - BC, Group A Strep 04/03 - UC, E. Coli that is MDR (Bactrim, Cipro, Ceftriaxone, Levaquin, Ancef) 12/10 - UC, E. Coli that is MDR (Bactrim, Cefepime, Cipro, Ceftriaxone, Levaquin, Ancef) -continue IV Zosyn for now (3) Stasis ulcer: Qualifiers: Venous stasis ulcer site: calf Laterality: right Code(s): I83.009 - Varicose veins of unspecified lower extremity with ulcer of unspecified site; L97.909 - Non-pressure chronic ulcer of unspecified part of unspecified lower leg with unspecified severity Status: Acute Assessment and Plan: - shallow/wide wound to R calf, small 1 cm ulceration to R posterior calf, and small 1 cm ulceration to dorsal aspect of R foot. - wound RN has assessed - continue wound care per their recommendations - wound care consult ordered for follow-up (4) Diastolic congestive heart failure: Code(s): I50.30 - Unspecified diastolic (congestive) heart failure Status: Acute Assessment and Plan: -patient on Lasix Aldactone and chlorothiazide looks development monitor (5) Chronic kidney disease, stage 3: Code(s): N18.30 - Chronic kidney disease, stage 3 unspecified Status: Acute Assessment and Plan: Acute and of chronic renal failure improved nephrology following continue diuresis (6) DM type 2 (diabetes mellitus, type 2): Qualifiers: Diabetes mellitus performing artist insulin use: unspecified performing artist insulin use status Diabetes mellitus complication status: without complication Qualified Code(s): E11.9 - Type 2 diabetes mellitus without complications Code(s): E11.9 - Type 2 diabetes mellitus without complications Status: Acute Assessment and Plan: Continue home medication Plan Altered mental status secondary to acute metabolic encephalopathy probably related to above will get MRI of the brain will get CT scan of the head unlikely patient had acute stroke continue neuro check if MRI obtained positive will get neurology eval Avoid narcotics as much as possible Sleep hygiene Telemonitor Time Spent With Patient Time with patient: 15 - 25 minutes Subjective Date/time seen: 05/12/23 11:33 Interval history: 78 y/o F presents here with generalized weakness and reduced appetite with PMH of HTN, CKD, CHF, HTN, HLD, hypothyroidism, PHYLICIA on CPAP, PVD, DM2, and aortic stenosis. Patient reports that she has been feeling generally weak and more fatigued. Patient is poor historian. Unable to elaborate on timeframe. Denies any burning with urination or hematuria. Endorses urinary frequency, but this is patient's baseline. Denies any abdominal pain or suprapubic pain. Patient reports overall improvement in her lower extremities - i.e improved appearance and reduction in pain. Per chart review, no time frame given to ED staff. Patient is well known to the hospitalist service with recent admissions on 04/03 - 04/08 for a drug resistant UTI and positive blood cultures (Group A Strep). Patient was encouraged to go to rehab but ultimately declined. Patient returned on 04/09 - 04/15 for weakness, somnolence, and general malaise.? Found to have RLE cellulitis without evidence of abscess or os
[2023-05-12 12:12] LABS: Glucose Point of Care 189 mg/dl (65-105)
--- NOTE | 2023-05-12 16:04 | PCPTNOTE ---
Per nurse, patient out of room for MRI.
[2023-05-12 17:14] LABS: Glucose Point of Care 125 mg/dl (65-105)
[2023-05-12 21:12] LABS: Glucose Point of Care 177 mg/dl (65-105)
[2023-05-13] VITALS (11 sets, daily range): BP systolic 100–137; BP diastolic 54–62; PULSE 76–127; RESP 19–20; TEMP 35.8–36.4; O2SAT 91–97
[2023-05-13] MEDS: LEVOTHYROXINE SODIUM 100 MCG TABLET 200 MCG PO (05:06)
[2023-05-13] MEDS: PIPERACILLIN/TAZ 2.25G/NS 50ML 2.25 GM/50 ML BAG IVPB (05:06)
[2023-05-13 06:00] LABS: Basophils Absolute Auto 0.1 K/mm3 (0.0-0.1); Basophils Percent Auto 1.3 % (0.2-1.2); Eosinophils Absolute Auto 0.1 K/mm3 (0-0.3); Eosinophils Percent Auto 1.6 % (0-4.4); Hematocrit 34.8 % (37.0-47.0); Hemoglobin 10.8 g/dL (12.0-15.0); Immature Granulocyte Absolute 0.02 K/mm3 (0.00-0.031); Immature Granulocyte Percent A 0.3 % (0-0.5); Lymphocytes Absolute Auto 1.49 K/mm3 (0.9-3.2); Lymphocytes Percent Auto 19.7 % (18.3-44.2); Mean Corpuscular Hemoglobin 26.9 pg (26-34); Mean Corpuscular Volume 86.6 fl (80-100); Mean Platelet Volume 10.6 fl (7.4-10.4); Monocytes Absolute Auto 0.9 K/mm3 (0.1-0.6); Monocytes Percent Auto 11.4 % (2.6-8.5); Neutrophils Percent Auto 65.7 % (45.5-73.1); Platelet Count Result 410 k/mm3 (150-375); Red Blood Count 4.02 M/mm3 (4.2-5.4); Red Cell Distribution Width 16.8 % (11.5-14.5); White Blood Count 7.6 K/mm3 (4.5-10.0)
[2023-05-13 06:14] LABS: Anion Gap 9 mmol/L (8-16); Blood Urea Nitrogen 30 mg/dL (7-17); Calcium 9.5 mg/dL (8.4-10.2); Carbon Dioxide 23 mmol/L (22-30); Chloride 101 mmol/L (98-107); Estimated CRCL calculation 24 ml/min; Estimated Glomerular Filt Rate 24; Glucose 131 mg/dL (65-110); Sodium 133 mmol/L (137-145)
[2023-05-13 08:21] LABS: Glucose Point of Care 125 mg/dl (65-105)
--- NOTE | 2023-05-13 08:26 | PM.IMPN ---
Progress Note: A&P Assessment and Plan (1) Sepsis: Code(s): A41.9 - Sepsis, unspecified organism Status: Acute Assessment and Plan: Associated with sepsis present on admission reviewed culture results will discuss with ID pharmacy switched to meropenem (2) UTI (urinary tract infection): Qualifiers: Urinary tract infection type: site unspecified Hematuria presence: without hematuria Qualified Code(s): N39.0 - Urinary tract infection, site not specified Code(s): N39.0 - Urinary tract infection, site not specified Status: Acute Assessment and Plan: - UA: - urine culture obtained on 05/08 - review of micro 05/08 - UC, multidrug resistant E.Coli 05/08 - BC, no growth 04/09 - BC, no growth 04/05 - BC, no growth 04/03 - BC, Group A Strep 04/03 - UC, E. Coli that is MDR (Bactrim, Cipro, Ceftriaxone, Levaquin, Ancef) 12/10 - UC, E. Coli that is MDR (Bactrim, Cefepime, Cipro, Ceftriaxone, Levaquin, Ancef) -will discuss with ID pharmacy will switch to meropenem patient to complete 7 days of meropenem (3) Stasis ulcer: Qualifiers: Venous stasis ulcer site: calf Laterality: right Code(s): I83.009 - Varicose veins of unspecified lower extremity with ulcer of unspecified site; L97.909 - Non-pressure chronic ulcer of unspecified part of unspecified lower leg with unspecified severity Status: Acute Assessment and Plan: - shallow/wide wound to R calf, small 1 cm ulceration to R posterior calf, and small 1 cm ulceration to dorsal aspect of R foot. - wound RN has assessed - continue wound care per their recommendations - wound care consult ordered for follow-up (4) Diastolic congestive heart failure: Code(s): I50.30 - Unspecified diastolic (congestive) heart failure Status: Acute Assessment and Plan: -patient on Lasix Aldactone and chlorothiazide looks development monitor Reviewed recent echo showed patient has moderate to severe aortic stenosis follow-up with PCP as outpatient (5) Chronic kidney disease, stage 3: Code(s): N18.30 - Chronic kidney disease, stage 3 unspecified Status: Acute Assessment and Plan: Acute and of chronic renal failure improved nephrology following continue diuresis (6) DM type 2 (diabetes mellitus, type 2): Qualifiers: Diabetes mellitus usp insulin use: unspecified usp insulin use status Diabetes mellitus complication status: without complication Qualified Code(s): E11.9 - Type 2 diabetes mellitus without complications Code(s): E11.9 - Type 2 diabetes mellitus without complications Status: Acute Assessment and Plan: Continue home medication Plan Altered mental status secondary to acute metabolic encephalopathy probably related to above refused t CT scan of the head unlikely patient had acute stroke continue neuro Avoid narcotics as much as possible Sleep hygiene Telemonitor Was patient refused MRI of the brain refused CT scan of the head Neurology was consulted patient has preexistent right leg weakness Anticipate discharge to rehab once mental status improved and once antibiotic finalized patient will need 7 days total of meropenem starting today day 1 Time Spent With Patient Time with patient: 15 - 25 minutes Subjective Date/time seen: 05/13/23 08:26 Interval history: 78 y/o F presents here with generalized weakness and reduced appetite with PMH of HTN, CKD, CHF, HTN, HLD, hypothyroidism, PHYLICIA on CPAP, PVD, DM2, and aortic stenosis. Patient reports that she has been feeling generally weak and more fatigued. Patient is poor historian. Unable to elaborate on timeframe. Denies any burning with urination or hematuria. Endorses urinary frequency, but this is patient's baseline. Denies any abdominal pain or suprapubic pain. Patient reports overall improvement in her lower extremities - i.e improved appearance and reductio
[2023-05-13] MEDS: EMPAGLIFLOZIN 10 MG TABLET PO (09:54)
[2023-05-13] MEDS: FUROSEMIDE 20 MG TABLET 60 MG PO (09:54)
[2023-05-13] MEDS: lisinopriL 10 MG TABLET PO (09:55)
[2023-05-13] MEDS: cilostazoL 100 MG TABLET PO ×2 (09:55→17:40)
[2023-05-13] MEDS: METOPROLOL SUCCINATE EXT REL 12.5 MG TABCR PO (09:55)
[2023-05-13] MEDS: ACIDOPHILUS/BULGARICUS CHEWABLE TABLET 1 TABLET PO (09:55)
[2023-05-13] MEDS: hydroCHLOROthiazide 12.5 MG CAPSULE PO (09:55)
[2023-05-13] MEDS: SPIRONOLACTONE 25 MG TABLET PO (09:55)
[2023-05-13] MEDS: ENOXAPARIN 30 MG/0.3 ML SYRINGE SUB-Q (09:56)
[2023-05-13] MEDS: POTASSIUM CHLORIDE 20 MEQ PACKET (FOR LIQUID) PO (09:56)
[2023-05-13] MEDS: COLLAGENASE OINT 30 GM TUBE 1 APPLIC TOPICAL (09:57)
[2023-05-13] MEDS: TOLNAFTATE 1% POWDER 45 GM BTL 1 APPLIC TOPICAL ×2 (09:57→20:25)
--- NOTE | 2023-05-13 10:32 | PM.PNNEP ---
Progress Note: A&P Assessment and Plan (1) Acute kidney injury: Code(s): N17.9 - Acute kidney failure, unspecified Status: Acute Assessment and Plan: relatively stable since admisison outpatient labs noted creatinine of 3.1mg/dl on 04/26 and 05/06/23 admission creatinine 2.3mg/dl presumably due to infection (wounds + UTI) in the context of chronic diuretic therapy (HCTZ + spironolactone) along with XUAN-I use drug reaction?? 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 evaluation to date: urine electrolytes (by FeUrea) are prerenal urine eosinophils negative CPK okay UA c/w with infection serologies pending maria c hold lisinopril and HCTZ + spironolactone watch volume status given history of CHF consider trial of IVFs? follow repeat labs and UOP (2) Stage 3a chronic kidney disease: Code(s): N18.31 - Chronic kidney disease, stage 3a Status: Chronic Assessment and Plan: baseline creatinine seems to rub around 1.0 - 1.1mg/dl presumably due to HTN, DM, PVD, diastolic CHF, PHYLICIA and age-related change (3) UTI (urinary tract infection): Qualifiers: Hematuria presence: without hematuria Urinary tract infection type: site unspecified Qualified Code(s): N39.0 - Urinary tract infection, site not specified Code(s): N39.0 - Urinary tract infection, site not specified Status: Acute Assessment and Plan: admission UA highly suggestive urine culture with E.coli on antibiotics (4) Stasis ulcer: Qualifiers: Laterality: right Venous stasis ulcer site: calf Code(s): I83.009 - Varicose veins of unspecified lower extremity with ulcer of unspecified site; L97.909 - Non-pressure chronic ulcer of unspecified part of unspecified lower leg with unspecified severity Status: Acute Assessment and Plan: noted on right posterior calf and dorsal aspect of right foot wound care following on antibiotics already (5) Diastolic congestive heart failure: Code(s): I50.30 - Unspecified diastolic (congestive) heart failure Status: Acute Assessment and Plan: appears compensated/euvolemic at this time was lasix and spironolactone consider holding diuretic dosage given #1(?) (6) DM type 2 (diabetes mellitus, type 2): Qualifiers: Diabetes mellitus complication status: without complication Diabetes mellitus chcf insulin use: unspecified chcf insulin use status Qualified Code(s): E11.9 - Type 2 diabetes mellitus without complications Code(s): E11.9 - Type 2 diabetes mellitus without complications Status: Acute Assessment and Plan: follow accu-checks glycemic control per hospitalists Will continue to follow Subjective Date/time seen: 05/13/23 10:32 Interval history: Follow-up for acute kidney injury/acute renal failure on chronic kidney disease. Confusion/memory issues seems to be doing a bit better per nursing; Neurology consulted for further assessment; only other complaint noted was right leg weakness. Exam Narrative: General: elderly female in NAD Heart: normal S1 and S2; no rub Lungs: clear to auscultation Abdomen: soft, nontender, nondistended, positive bowel sounds Extremities: no cyanosis or clubbing; no edema Skin: no rash Objective Data Vital Signs Vital Signs: Vital Signs Temp Pulse Resp BP Pulse Ox O2 Del Method 05/13/23 10:00 106 H 05/13/23 08:00 101 H 05/13/23 09:55 Room Air 05/13/23 09:55 110 H 05/13/23 09:52 110 H 111/55 L 97 05/13/23 04:00 106 H 05/13/23 03:00 97 F L 127 H 20 137/60 94 05/13/23 00:00 113 H 05/12/23 20:00 113 H 05/12/23 20:22 97.6 F 127 H 18 104/48 L 93 Intake/Output Intake/Output: Intake & Output 03
--- NOTE | 2023-05-13 10:32 | P.PNNP_ITS ---
Progress Note: A&P Assessment and Plan (1) Acute kidney injury: Code(s): N17.9 - Acute kidney failure, unspecified Status: Acute Assessment and Plan: * relatively stable since admisison * outpatient labs noted creatinine of 3.1mg/dl on 04/26 and 05/06/23 * admission creatinine 2.3mg/dl * presumably due to infection (wounds + UTI) in the context of chronic diuretic therapy (HCTZ + spironolactone) along with XUAN-I use * drug reaction?? 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 * evaluation to date: * urine electrolytes (by FeUrea) are prerenal * urine eosinophils negative * CPK okay * UA c/w with infection * serologies pending * maria c hold lisinopril and HCTZ + spironolactone * watch volume status given history of CHF * consider trial of IVFs? * follow repeat labs and UOP (2) Stage 3a chronic kidney disease: Code(s): N18.31 - Chronic kidney disease, stage 3a Status: Chronic Assessment and Plan: * baseline creatinine seems to rub around 1.0 - 1.1mg/dl * presumably due to HTN, DM, PVD, diastolic CHF, PHYLICIA and age-related change (3) UTI (urinary tract infection): Qualifiers: Hematuria presence: without hematuria Urinary tract infection type: site unspecified Qualified Code(s): N39.0 - Urinary tract infection, site not specified Code(s): N39.0 - Urinary tract infection, site not specified Status: Acute Assessment and Plan: * admission UA highly suggestive * urine culture with E.coli * on antibiotics (4) Stasis ulcer: Qualifiers: Laterality: right Venous stasis ulcer site: calf Code(s): I83.009 - Varicose veins of unspecified lower extremity with ulcer of unspecified site; L97.909 - Non-pressure chronic ulcer of unspecified part of unspecified lower leg with unspecified severity Status: Acute Assessment and Plan: * noted on right posterior calf and dorsal aspect of right foot * wound care following * on antibiotics already (5) Diastolic congestive heart failure: Code(s): I50.30 - Unspecified diastolic (congestive) heart failure Status: Acute Assessment and Plan: * appears compensated/euvolemic at this time * was lasix and spironolactone * consider holding diuretic dosage given #1(?) (6) DM type 2 (diabetes mellitus, type 2): Qualifiers: Diabetes mellitus complication status: without complication Diabetes mellitus termite helper insulin use: unspecified care home insulin use status Qualified Code(s): E11.9 - Type 2 diabetes mellitus without complications Code(s): E11.9 - Type 2 diabetes mellitus without complications Status: Acute Assessment and Plan: * follow accu-checks * glycemic control per hospitalists Will continue to follow Subjective Date/time seen: 05/13/23 10:32 Interval history: Follow-up for acute kidney injury/acute renal failure on chronic kidney disease. Confusion/memory issues seems to be doing a bit better per nursing; Neurology consulted for further assessment; only other complaint noted was right leg weakness. Exam Narrative: General: elderly female in NAD Heart: normal S1 and S2; no rub Lungs: clear to auscultation Abdomen: soft, nontender, nondistended, positive bowel sounds Extremities: no cyanosis or clubbing; no edema Skin: no rash
[2023-05-13] MEDS: ONDANSETRON INJ 4 MG/2 ML VIAL IV PUSH (10:41)
--- NOTE | 2023-05-13 10:42 | PCPTNOTE ---
Attempted to see patient for PT, however RN reported patient is vomiting and advised not to see at this time.
--- NOTE | 2023-05-13 11:09 | WPDNEURCNPN ---
Assessment and Plan Assessment and plan (1) Generalized weakness: Code(s): R53.1 - Weakness Status: Acute (2) DM type 2 (diabetes mellitus, type 2): Qualifiers: Diabetes mellitus skilled nursing insulin use: unspecified termite exterminator helper insulin use status Diabetes mellitus complication status: without complication Qualified Code(s): E11.9 - Type 2 diabetes mellitus without complications Code(s): E11.9 - Type 2 diabetes mellitus without complications Status: Acute (3) Diabetic leg ulcer: Code(s): E11.622 - Type 2 diabetes mellitus with other skin ulcer; L97.909 - Non-pressure chronic ulcer of unspecified part of unspecified lower leg with unspecified severity Status: Acute (4) Memory dysfunction: Code(s): R41.3 - Other amnesia Status: Acute Plan 1. Ongoing dementia 2. Insulin-dependent diabetic 3. Congestive heart failure 4. Chronic renal disease 5. UTI 6. Diabetic neuropathy 7. Multifactorial ongoing dementia as she has not had any EEG or CT scan of the head or MRI will obtain the EEG and CT scan before any further recommendations are made along with the B12 and folate level. She has ongoing hypothyroidism for which she is being treated. Consult date: 05/13/23 HPI: Racheal North is a 78 year old femaleAdmitted to the hospital through the emergency room for the complaints of generalized weakness and with the information that she was recently discharged from [facility] with the ongoing diagnosis of chronic wound to her sacrum and right lower extremity during that stay she was started on cefepime and metronidazole and vancomycin and then transitioned to ceftriaxone along with the wound care when she continued to improve she was switched over to oral medication and discharged to [place]. at this time her medications include only p.r.n. diphenhydramine 12.5mg, tramadol 50mg b.i.d. p.r.n. levothyroxine 200mcg daily and lisinopril 10mg daily with hydrochlorothiazide 12.5mg. She is allergic to sulfa influenza virus vaccine and general anesthesia. She has ongoing diagnosis of aortic stenosis with hypertension, chronic renal disease stage III, congestive heart failure, acquired hypothyroidism, peripheral vascular disease, and diabetes mellitus. She carries full code status, never smoker, never alcohol intake, and as per the who is in the room she is experiencing increasing confusion and generalized weakness. Initial evaluation in the emergency room documented normal vital signs with pulse rate of 108 and blood pressure 145/67, her CBC was fairly normal BMP was sodium 133 BUN 34 and creatinine 2.30 she was negative for influenza A,B, RSV and SARs COVID. at present she is being treated for UTI and her recent medications include Farxiga 5mg daily, clindamycin 300mg q.6 hours levothyroxine 200mcg daily. Review of Systems Review of Systems: All systems reviewed & are unremarkable except as noted in HPI and below PMFSH Past Medical History Medical History Aortic stenosis Benign essential hypertension Body mass index (BMI) 45.0-49.9, adult Chronic kidney disease, stage 3 Degenerative joint disease Diastolic congestive heart failure Essential hypertension Hyperlipidemia Hypothyroidism (acquired) Murmur, heart PHYLICIA on CPAP Peripheral vascular disease Tachycardia Type 2 diabetes mellitus Vitamin D deficiency Surgical History Surgical History History of bladder repair surgery For bladder prolapse. Family History Family History Mother Hypertension, Onset Age: 70 Cerebrovascular accident Patient's mother is Sibling Carcinoma of colon Other Family history of arthritis Family history of coronary artery disease Social History Social History (Reviewed 05/09/23 @ 17:40 by Shani Navarro
[2023-05-13 12:08] LABS: Glucose Point of Care 191 mg/dl (65-105)
[2023-05-13] MEDS: MEROPENEM 1 GM/NS 100 ML 1 GM/100 ML BAG IVPB ×2 (13:37→20:25)
--- NOTE | 2023-05-13 14:03 | PCPTNOTE ---
attempted to see pt for PT treatment. She was in bed, tired and refused PT at this time. Stated she was just returned to bed and did not want to do anything.
[2023-05-13 17:09] LABS: Glucose Point of Care 117 mg/dl (65-105)
[2023-05-13 21:29] LABS: Glucose Point of Care 152 mg/dl (65-105)
[2023-05-13 21:38] LABS: Glucose Point of Care 124 mg/dl (65-105)
[2023-05-14] VITALS (10 sets, daily range): BP systolic 102–154; BP diastolic 43–60; PULSE 88–120; RESP 16–20; TEMP 36.3–36.6; O2SAT 92–99
[2023-05-14 05:28] LABS: Basophils Absolute Auto 0.1 K/mm3 (0.0-0.1); Basophils Percent Auto 1.3 % (0.2-1.2); Eosinophils Absolute Auto 0.2 K/mm3 (0-0.3); Eosinophils Percent Auto 2.3 % (0-4.4); Hematocrit 34.2 % (37.0-47.0); Hemoglobin 10.8 g/dL (12.0-15.0); Immature Granulocyte Absolute 0.03 K/mm3 (0.00-0.031); Immature Granulocyte Percent A 0.4 % (0-0.5); Lymphocytes Absolute Auto 1.59 K/mm3 (0.9-3.2); Lymphocytes Percent Auto 21.4 % (18.3-44.2); Mean Corpuscular HGB Conc 31.6 g/dl (32-36); Mean Corpuscular Hemoglobin 27.2 pg (26-34); Mean Corpuscular Volume 86.1 fl (80-100); Mean Platelet Volume 10.5 fl (7.4-10.4); Monocytes Absolute Auto 0.9 K/mm3 (0.1-0.6); Monocytes Percent Auto 12.1 % (2.6-8.5); Neutrophils Absolute Auto 4.6 K/mm3 (1.3-6.7); Neutrophils Percent Auto 62.5 % (45.5-73.1); Platelet Count Result 397 k/mm3 (150-375); Red Blood Count 3.97 M/mm3 (4.2-5.4); Red Cell Distribution Width 16.5 % (11.5-14.5); White Blood Count 7.4 K/mm3 (4.5-10.0)
[2023-05-14 05:42] LABS: Alanine Aminotransferase 11 U/L (6-35); Albumin Level 3.5 g/dL (3.5-5.1); Alkaline Phosphatase 58 U/L (38-126); Anion Gap 9 mmol/L (8-16); Aspartate Amino Transferase 29 U/L (14-36); Bilirubin,Total 0.5 mg/dL (0.2-1.3); Blood Urea Nitrogen 30 mg/dL (7-17); Calcium 9.7 mg/dL (8.4-10.2); Carbon Dioxide 24 mmol/L (22-30); Chloride 101 mmol/L (98-107); Estimated CRCL calculation 25 ml/min; Estimated Glomerular Filt Rate 26; Glucose 122 mg/dL (65-110); Phosphorus 3.2 mg/dL (2.5-4.5); Potassium 3.9 mmol/L (3.4-5.0); Sodium 134 mmol/L (137-145)
[2023-05-14] MEDS: LEVOTHYROXINE SODIUM 100 MCG TABLET 200 MCG PO (05:44)
--- NOTE | 2023-05-14 07:47 | PCNEURO ---
EEG attempted but patient was very adamant about not wanting this test done. Nurse was in room and we tried to change her mind. Will inform Dr Alonso of patients refusal.
[2023-05-14 07:59] LABS: Glucose Point of Care 128 mg/dl (65-105)
[2023-05-14] MEDS: ACIDOPHILUS/BULGARICUS CHEWABLE TABLET 1 TABLET PO (08:37)
[2023-05-14] MEDS: EMPAGLIFLOZIN 10 MG TABLET PO (08:38)
[2023-05-14] MEDS: METOPROLOL SUCCINATE EXT REL 12.5 MG TABCR PO (08:38)
[2023-05-14] MEDS: FUROSEMIDE 20 MG TABLET 60 MG PO (08:38)
[2023-05-14] MEDS: SPIRONOLACTONE 25 MG TABLET PO (08:38)
[2023-05-14] MEDS: cilostazoL 100 MG TABLET PO ×2 (08:38→16:50)
[2023-05-14] MEDS: ENOXAPARIN 30 MG/0.3 ML SYRINGE SUB-Q (08:38)
[2023-05-14] MEDS: COLLAGENASE OINT 30 GM TUBE 1 APPLIC TOPICAL (08:39)
[2023-05-14] MEDS: MEROPENEM 1 GM/NS 100 ML 1 GM/100 ML BAG IVPB ×2 (08:40→20:23)
[2023-05-14] MEDS: TOLNAFTATE 1% POWDER 45 GM BTL 1 APPLIC TOPICAL (08:42)
--- NOTE | 2023-05-14 11:01 | PCNFU ---
Nutrition Follow-Up Complete: Increased protein energy needs related to wound healing as evidenced by unstageable pressure injury to sacrum Goal: Adequate PO intake for wound healing support Patient has limited progress towards goal. We will continue current goal. Pt current nutrition is Heart Healthy with Jacob BID and Ensure compact BID. Last recorded weight is 94.7 kg. 9 ib weight drop since yesterday. Unsure of bed scale accuracy. Bowel Motility: +BM reported 3/6 Labs Reviewed:Glu 122, Cr 1.9,BUN 30, GFR 26, Na 134, Hct 34.2,Hgb 10.8 Meds Noted:Jardiance, Lovenox, Lasix Skin: Unstageable pressure ulcer-sacrum. Additional Notes: Patient remains on a heart healthy diet. Oral intake has been poor 0-25% of most meals. She is drinking diet supplements of Jacob (90 gms and 2.5 gms protein) and Ensure compact (220 kcals and 9 gms protein). PO intake encouraged. Agree with diet orders. Monitoring intakes, weights, labs, supplement tolerance, wound healing, plan of care Follow up in 5 days
--- NOTE | 2023-05-14 11:51 | PM.PNNEP ---
Progress Note: A&P Assessment and Plan (1) Acute kidney injury: Code(s): N17.9 - Acute kidney failure, unspecified Status: Acute Assessment and Plan: relatively stable since admisison outpatient labs noted creatinine of 3.1mg/dl on 04/26 and 05/06/23 admission creatinine 2.3mg/dl presumably due to infection (wounds + UTI) in the context of chronic diuretic therapy (HCTZ + spironolactone) along with XUAN-I use drug reaction?? 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 evaluation to date: urine electrolytes (by FeUrea) are prerenal urine eosinophils negative CPK okay UA c/w with infection serologies pending maria c hold lisinopril and HCTZ + spironolactone watch volume status given history of CHF consider trial of IVFs? follow repeat labs and UOP (2) Stage 3a chronic kidney disease: Code(s): N18.31 - Chronic kidney disease, stage 3a Status: Chronic Assessment and Plan: baseline creatinine seems to rub around 1.0 - 1.1mg/dl presumably due to HTN, DM, PVD, diastolic CHF, PHYLICIA and age-related change (3) UTI (urinary tract infection): Qualifiers: Hematuria presence: without hematuria Urinary tract infection type: site unspecified Qualified Code(s): N39.0 - Urinary tract infection, site not specified Code(s): N39.0 - Urinary tract infection, site not specified Status: Acute Assessment and Plan: admission UA highly suggestive urine culture with E.coli on antibiotics (4) Stasis ulcer: Qualifiers: Laterality: right Venous stasis ulcer site: calf Code(s): I83.009 - Varicose veins of unspecified lower extremity with ulcer of unspecified site; L97.909 - Non-pressure chronic ulcer of unspecified part of unspecified lower leg with unspecified severity Status: Acute Assessment and Plan: noted on right posterior calf and dorsal aspect of right foot wound care following on antibiotics already (5) Diastolic congestive heart failure: Code(s): I50.30 - Unspecified diastolic (congestive) heart failure Status: Acute Assessment and Plan: appears compensated/euvolemic at this time was lasix and spironolactone consider holding diuretic dosage given #1(?) (6) DM type 2 (diabetes mellitus, type 2): Qualifiers: Diabetes mellitus complication status: without complication Diabetes mellitus mcfp insulin use: unspecified mcfp insulin use status Qualified Code(s): E11.9 - Type 2 diabetes mellitus without complications Code(s): E11.9 - Type 2 diabetes mellitus without complications Status: Acute Assessment and Plan: follow accu-checks glycemic control per hospitalists Will continue to follow Subjective Date/time seen: 05/14/23 11:51 Interval history: Follow-up for acute kidney injury/acute renal failure on chronic kidney disease Mentation seems stable if not better; no significant change in renal function noted (but no worse); no apparent distress voiced; refused CT and MRI of brain as recommended by Neurology; no new events to report. Exam Narrative: General: elderly female in NAD Heart: normal S1 and S2; no rub Lungs: clear to auscultation Abdomen: soft, nontender, nondistended, positive bowel sounds Extremities: no cyanosis or clubbing; no edema Skin: no nodules Objective Data Vital Signs Vital Signs: Vital Signs Temp Pulse Resp BP Pulse Ox O2 Del Method 05/14/23 11:00 112 H 05/14/23 08:00 113 H 05/14/23 08:38 92 05/14/23 08:00 94 Room Air 05/14/23 04:00 120 H 05/14/23 00:00 114 H 05/13/23 20:00 115 H 05/14/23 03:58 97.9 F 102 H 20 154/52 H 94 05/13/23 20:31 96.4 F L 76 20 100/54 L 91 05/13/23 20:00 Room Air Intake/Outpu
--- NOTE | 2023-05-14 11:51 | P.PNNP_ITS ---
Progress Note: A&P Assessment and Plan (1) Acute kidney injury: Code(s): N17.9 - Acute kidney failure, unspecified Status: Acute Assessment and Plan: * relatively stable since admisison * outpatient labs noted creatinine of 3.1mg/dl on 04/26 and 05/06/23 * admission creatinine 2.3mg/dl * presumably due to infection (wounds + UTI) in the context of chronic diuretic therapy (HCTZ + spironolactone) along with XUAN-I use * drug reaction?? 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 * evaluation to date: * urine electrolytes (by FeUrea) are prerenal * urine eosinophils negative * CPK okay * UA c/w with infection * serologies pending * maria c hold lisinopril and HCTZ + spironolactone * watch volume status given history of CHF * consider trial of IVFs? * follow repeat labs and UOP (2) Stage 3a chronic kidney disease: Code(s): N18.31 - Chronic kidney disease, stage 3a Status: Chronic Assessment and Plan: * baseline creatinine seems to rub around 1.0 - 1.1mg/dl * presumably due to HTN, DM, PVD, diastolic CHF, PHYLICIA and age-related change (3) UTI (urinary tract infection): Qualifiers: Hematuria presence: without hematuria Urinary tract infection type: site unspecified Qualified Code(s): N39.0 - Urinary tract infection, site not specified Code(s): N39.0 - Urinary tract infection, site not specified Status: Acute Assessment and Plan: * admission UA highly suggestive * urine culture with E.coli * on antibiotics (4) Stasis ulcer: Qualifiers: Laterality: right Venous stasis ulcer site: calf Code(s): I83.009 - Varicose veins of unspecified lower extremity with ulcer of unspecified site; L97.909 - Non-pressure chronic ulcer of unspecified part of unspecified lower leg with unspecified severity Status: Acute Assessment and Plan: * noted on right posterior calf and dorsal aspect of right foot * wound care following * on antibiotics already (5) Diastolic congestive heart failure: Code(s): I50.30 - Unspecified diastolic (congestive) heart failure Status: Acute Assessment and Plan: * appears compensated/euvolemic at this time * was lasix and spironolactone * consider holding diuretic dosage given #1(?) (6) DM type 2 (diabetes mellitus, type 2): Qualifiers: Diabetes mellitus complication status: without complication Diabetes mellitus long term care administrator insulin use: unspecified care home insulin use status Qualified Code(s): E11.9 - Type 2 diabetes mellitus without complications Code(s): E11.9 - Type 2 diabetes mellitus without complications Status: Acute Assessment and Plan: * follow accu-checks * glycemic control per hospitalists Will continue to follow Subjective Date/time seen: 05/14/23 11:51 Interval history: Follow-up for acute kidney injury/acute renal failure on chronic kidney disease Mentation seems stable if not better; no significant change in renal function noted (but no worse); no apparent distress voiced; refused CT and MRI of brain as recommended by Neurology; no new events to report. Exam Narrative: General: elderly female in NAD Heart: normal S1 and S2; no rub Lungs: clear to auscultation Abdomen: soft, nontender, nondistended, positive bowel sounds Extremities: no cyanosis or clubbing; no shirlene
[2023-05-14 11:53] LABS: Glucose Point of Care 200 mg/dl (65-105)
[2023-05-14] MEDS: ONDANSETRON INJ 4 MG/2 ML VIAL IV PUSH (12:18)
--- NOTE | 2023-05-14 12:52 | WPDNEUROPN ---
Subjective Date/time seen: 05/14/23 12:52 Interval history: 78 years old lady with ongoing dementia with insulin-dependent diabetes mellitus, congestive heart failure, chronic renal disease, diabetic neuropathy, CT scan of the head documented no intracranial pathology particularly there is no evidence of hydrocephalus or chronic subdurals and her renal ultrasound is also normal without hydro nephrosis B12 and folate levels are pending, examination remains unchanged Objective Data Vital Signs Vital Signs: Vital Signs - 24 hr 05/13/23 14:00 05/13/23 16:00 05/13/23 20:00 Temperature 36.4 C Pulse Rate 100 118 H Respiratory Rate 19 Blood Pressure 130/62 Pulse Oximetry 95 Oxygen Delivery Room Air 05/13/23 20:31 05/14/23 03:58 05/13/23 20:00 Temperature 35.8 C L 36.6 C Pulse Rate 76 102 H 115 H Respiratory Rate 20 20 Blood Pressure 100/54 L 154/52 H Pulse Oximetry 91 94 Oxygen Delivery 05/14/23 00:00 05/14/23 04:00 05/14/23 08:00 Temperature Pulse Rate 114 H 120 H Respiratory Rate Blood Pressure Pulse Oximetry 94 Oxygen Delivery Room Air 05/14/23 08:38 05/14/23 08:00 Temperature Pulse Rate 92 113 H Respiratory Rate Blood Pressure Pulse Oximetry Oxygen Delivery Intake/Output Intake/Output: Intake & Output 05/11/23 05/12/23 05/13/23 05/14/23 23:59 23:59 23:59 23:59 Intake Total 250 989 4449 460 Output Total 200 100 300 200 Balance 399 315 4306 260 Meds/Results Medications: Active Medications Generic Name Dose Route Start Last Admin Trade Name Freq PRN Reason Stop Dose Admin Acetaminophen 650 mg 05/10/23 14:05 05/11/23 09:08 Acetaminophen 325 Mg Tablet PO 650 mg Q4H PRN Administration Mild Pain (1-3) Hydrocodone Bitart/Acetaminophen 1 tab 05/10/23 13:46 05/10/23 14:12 Hydrocodone/Acetaminophen (*Crx) 5-325 Mg Tablet PO 1 tab Q6H PRN Administration Pain Rated 8-10 Cilostazol 100 mg 05/10/23 09:00 05/14/23 08:38 Cilostazol 100 Mg Tablet PO 100 mg BID PREMA Administration Collagenase 1 applic 05/09/23 09:00 05/14/23 08:39 Collagenase Oint 30 Gm Tube TOPICAL 1 applic QAM PREMA Administration Dextrose 12.5 gm 05/09/23 17:50 Dextrose 50% 25 Gm/50 Ml Syringe IV PUSH PRN PRN Hypoglycemia Protocol Diphenhydramine HCl 12.5 mg 05/09/23 17:48 Diphenhydramine Hcl Elixir 12.5 Mg/5 Ml Udc PO PRN PRN Itching Empagliflozin 10 mg 05/10/23 09:00 05/14/23 08:38 Empagliflozin 10 Mg Tablet PO 06/09/23 08:59 10 mg DAILY PREMA Administration Enoxaparin Sodium 30 mg 05/10/23 09:00 05/14/23 08:38 Enoxaparin 30 Mg/0.3 Ml Syringe SUB-Q 30 mg DAILY PREMA Administration Furosemide 60 mg 05/10/23 09:00 05/14/23 08:38 Furosemide 20 Mg Tablet PO 60 mg DAILY PREMA Administration Glucagon 1 mg 05/09/23 17:50 Glucagon For Inj 1 Mg Vial IM PRN PRN Hypoglycemia Protocol Glucose 15 gm 05/09/23 17:50 Glucose Oral Gel 15 Gm Of Glucse In 37.5 Gm Tube PO PRN PRN Hypoglycemia Protocol Hydrochlorothiazide 12.5 mg 05/10/23 09:00 05/13/23 09:55 Hydrochlorothiazide 12.5 Mg Capsule PO 12.5 mg DAILY PREMA Administration Dextrose 1,000 mls @ 100 mls/hr 05/09/23 17:50 Dextrose 5% 1,000 Ml IVPB PRN PRN Hypoglycemia Protocol Meropenem 1 gm in 100 mls @ 200 mls/hr 05/13/23 12:00 05/14/23 12:20 IVPB Infused Q12HR PREMA Infusion Insulin Aspart 2 - 5 units 05/10/23 08:00 05/14/23 12:04 Insulin Aspart (*Bkc) 100 Units/Ml SUB-Q Not Given TIDWM [facility] Protocol Insulin Aspart 1 - 2 units 05/09/23 21:00 05/13/23 21:35 Insulin Aspart (*Bkc) 100 Units/Ml SUB-Q Not Given HS PREMA Protocol Lactobacillus Acidophilus 1 tablet 05/10/23 09:00 05/14/23 08:37 Acidophilus/Bulgaricus Chewable Tablet PO 04/01/24 08:59 1 tablet DAILY PREMA Administration Levothyroxine Sodium
--- NOTE | 2023-05-14 15:33 | PM.IMPN ---
Progress Note: A&P Assessment and Plan (1) Sepsis: Code(s): A41.9 - Sepsis, unspecified organism Status: Acute Assessment and Plan: Associated with sepsis present on admission reviewed culture results will discuss with ID pharmacy switched to meropenem (2) UTI (urinary tract infection): Qualifiers: Urinary tract infection type: site unspecified Hematuria presence: without hematuria Qualified Code(s): N39.0 - Urinary tract infection, site not specified Code(s): N39.0 - Urinary tract infection, site not specified Status: Acute Assessment and Plan: - UA: - urine culture obtained on 05/08 - review of micro 05/08 - UC, multidrug resistant E.Coli 05/08 - BC, no growth 04/09 - BC, no growth 04/05 - BC, no growth 04/03 - BC, Group A Strep 04/03 - UC, E. Coli that is MDR (Bactrim, Cipro, Ceftriaxone, Levaquin, Ancef) 12/10 - UC, E. Coli that is MDR (Bactrim, Cefepime, Cipro, Ceftriaxone, Levaquin, Ancef) -will discuss with ID pharmacy will switch to meropenem patient to complete 7 days of meropenem (3) Stasis ulcer: Qualifiers: Venous stasis ulcer site: calf Laterality: right Code(s): I83.009 - Varicose veins of unspecified lower extremity with ulcer of unspecified site; L97.909 - Non-pressure chronic ulcer of unspecified part of unspecified lower leg with unspecified severity Status: Acute Assessment and Plan: - shallow/wide wound to R calf, small 1 cm ulceration to R posterior calf, and small 1 cm ulceration to dorsal aspect of R foot. - wound RN has assessed - continue wound care per their recommendations - wound care consult ordered for follow-up (4) Diastolic congestive heart failure: Code(s): I50.30 - Unspecified diastolic (congestive) heart failure Status: Acute Assessment and Plan: -patient on Lasix Aldactone and chlorothiazide looks development monitor Reviewed recent echo showed patient has moderate to severe aortic stenosis follow-up with PCP as outpatient (5) Chronic kidney disease, stage 3: Code(s): N18.30 - Chronic kidney disease, stage 3 unspecified Status: Acute Assessment and Plan: Acute and of chronic renal failure improved nephrology following continue diuresis (6) DM type 2 (diabetes mellitus, type 2): Qualifiers: Diabetes mellitus long-term insulin use: unspecified long-term insulin use status Diabetes mellitus complication status: without complication Qualified Code(s): E11.9 - Type 2 diabetes mellitus without complications Code(s): E11.9 - Type 2 diabetes mellitus without complications Status: Acute Assessment and Plan: Continue home medication Plan Altered mental status secondary to acute metabolic encephalopathy probably related to above refused t CT scan of the head unlikely patient had acute stroke continue neuro Avoid narcotics as much as possible Sleep hygiene Telemonitor Was patient refused MRI of the brain refused CT scan of the head Neurology was consulted patient has preexistent right leg weakness Anticipate discharge to rehab once mental status improved and once antibiotic finalized patient will need 7 days total of meropenem starting today day 1 Subjective Date/time seen: 05/14/23 15:33 Interval history: 78 y/o F presents here with generalized weakness and reduced appetite with PMH of HTN, CKD, CHF, HTN, HLD, hypothyroidism, PHYLICAI on CPAP, PVD, DM2, and aortic stenosis. Patient reports that she has been feeling generally weak and more fatigued. Patient is poor historian. Unable to elaborate on timeframe. Denies any burning with urination or hematuria. Endorses urinary frequency, but this is patient's baseline. Denies any abdominal pain or suprapubic pain. Patient reports overall improvement in her lower extremities - i.e improved appearance and reduction in pain. Per chart review, no time frame given to ED staff.
--- NOTE | 2023-05-14 17:01 | WPDGICN ---
Assessment and Plan Assessment and plan (1) Nausea and vomiting in adult: Code(s): R11.2 - Nausea with vomiting, unspecified Status: Acute Assessment and Plan: per patient says that better no abdominal pain tolerating diet now ? dysmotility patient says that does not want EGD for now ppi for now and monitor for more episodes (2) Acute kidney injury: Code(s): N17.9 - Acute kidney failure, unspecified Status: Acute Assessment and Plan: improved (3) Sepsis: Code(s): A41.9 - Sepsis, unspecified organism Status: Acute Assessment and Plan: treated on admission and better (4) UTI (urinary tract infection): Qualifiers: Urinary tract infection type: acute cystitis Hematuria presence: without hematuria Qualified Code(s): N30.00 - Acute cystitis without hematuria Code(s): N39.0 - Urinary tract infection, site not specified Status: Acute (5) Diabetic leg ulcer: Code(s): E11.622 - Type 2 diabetes mellitus with other skin ulcer; L97.909 - Non-pressure chronic ulcer of unspecified part of unspecified lower leg with unspecified severity Status: Acute (6) DM type 2 (diabetes mellitus, type 2): Qualifiers: Diabetes mellitus truck terminal manager insulin use: unspecified truck terminal manager insulin use status Diabetes mellitus complication status: without complication Qualified Code(s): E11.9 - Type 2 diabetes mellitus without complications Code(s): E11.9 - Type 2 diabetes mellitus without complications Status: Acute (7) Memory dysfunction: Code(s): R41.3 - Other amnesia Status: Acute GI Consult Note Consult date/time: 05/14/23 17:01 Reason for consult: n/v HPI: Racheal North is a 78 year old female with history of HTN, CKD, CHF, HTN, HLD, hypothyroidism, PHYLICIA on CPAP, PVD, DM2, and aortic stenosis. Recent hospitalization 04/03 - 04/08 for a drug resistant UTI and positive blood cultures (Group A Strep). Patient was encouraged to go to rehab but ultimately declined. Patient returned on 04/09 - 04/15 for weakness, somnolence, and general malaise.? Found to have RLE cellulitis without evidence of abscess or osteomyelitis and maceration of her bottom, treated with oral abx. She is not best historian. This time she came 5 days ago with generalized weakness and more fatigued. Admitted with acute on ckd which has improved, yesterday had episode of nausea and emesis, today feeling better. Review of Systems Constitutional: Constitutional: Reports lethargy Eyes: Eyes: Denies blurry vision ENT: Reports Normal hearing present Cardiovascular: Cardiovascular: Denies chest pain Respiratory: Respiratory: Denies cough Gastrointestinal: Gastrointestinal: Reports nausea Musculoskeletal: Comments: pain rt leg Integumentary/Breasts: Comments: recent cellulitis leg Neurologic: Denies Abnormal speech present Psychiatric: Psychiatric: Reports anxiety [facility] Past Medical History Medical History (Updated 05/14/23 @ 17:05 by Masoud Arroyo MD) Aortic stenosis Benign essential hypertension Body mass index (BMI) 45.0-49.9, adult Chronic kidney disease, stage 3 Degenerative joint disease Diastolic congestive heart failure Essential hypertension Hyperlipidemia Hypothyroidism (acquired) Murmur, heart Nausea and vomiting in adult PHYLICIA on CPAP Peripheral vascular disease Tachycardia Type 2 diabetes mellitus Vitamin D deficiency Surgical History Surgical History History of bladder repair surgery For bladder prolapse. Family History Family History Mother Hypertension, Onset Age: 70 Cerebrovascular accident Patient's mother is Sibling Carcinoma of colon Other Family history of arthritis Family history of coronary artery disease Social History Social History (Re
[2023-05-14 17:47] LABS: Glucose Point of Care 124 mg/dl (65-105)
[2023-05-14 20:55] LABS: Glucose Point of Care 140 mg/dl (65-105)
[2023-05-15] VITALS (10 sets, daily range): BP systolic 117–139; BP diastolic 53–77; PULSE 80–126; RESP 18; TEMP 36.4–37.2; O2SAT 96–98
[2023-05-15] MEDS: TOLNAFTATE 1% POWDER 45 GM BTL 1 APPLIC TOPICAL ×3 (00:33→21:30)
[2023-05-15 05:53] LABS: Basophils Absolute Auto 0.1 K/mm3 (0.0-0.1); Basophils Percent Auto 1.2 % (0.2-1.2); Eosinophils Absolute Auto 0.2 K/mm3 (0-0.3); Eosinophils Percent Auto 2.3 % (0-4.4); Hematocrit 35.2 % (37.0-47.0); Hemoglobin 11.1 g/dL (12.0-15.0); Immature Granulocyte Absolute 0.02 K/mm3 (0.00-0.031); Immature Granulocyte Percent A 0.3 % (0-0.5); Lymphocytes Absolute Auto 2.06 K/mm3 (0.9-3.2); Lymphocytes Percent Auto 29.8 % (18.3-44.2); Mean Corpuscular HGB Conc 31.5 g/dl (32-36); Mean Corpuscular Hemoglobin 27.1 pg (26-34); Mean Corpuscular Volume 85.9 fl (80-100); Mean Platelet Volume 10.8 fl (7.4-10.4); Monocytes Absolute Auto 0.8 K/mm3 (0.1-0.6); Monocytes Percent Auto 11.7 % (2.6-8.5); Neutrophils Absolute Auto 3.8 K/mm3 (1.3-6.7); Neutrophils Percent Auto 54.7 % (45.5-73.1); Platelet Count Result 385 k/mm3 (150-375); Red Cell Distribution Width 16.7 % (11.5-14.5); White Blood Count 6.9 K/mm3 (4.5-10.0)
[2023-05-15 06:17] LABS: Alanine Aminotransferase 11 U/L (6-35); Albumin Level 3.5 g/dL (3.5-5.1); Alkaline Phosphatase 56 U/L (38-126); Anion Gap 9 mmol/L (8-16); Aspartate Amino Transferase 27 U/L (14-36); Bilirubin,Total 0.5 mg/dL (0.2-1.3); Blood Urea Nitrogen 44 mg/dL (7-17); Calcium 9.9 mg/dL (8.4-10.2); Carbon Dioxide 25 mmol/L (22-30); Chloride 100 mmol/L (98-107); Estimated CRCL calculation 21 ml/min; Estimated Glomerular Filt Rate 21; Glucose 112 mg/dL (65-110); Phosphorus 3.1 mg/dL (2.5-4.5); Potassium 4.1 mmol/L (3.4-5.0); Sodium 134 mmol/L (137-145)
[2023-05-15] MEDS: LEVOTHYROXINE SODIUM 100 MCG TABLET 200 MCG PO (06:41)
[2023-05-15 08:27] LABS: Glucose Point of Care 117 mg/dl (65-105)
[2023-05-15] MEDS: METOPROLOL SUCCINATE EXT REL 12.5 MG TABCR PO (08:40)
[2023-05-15] MEDS: cilostazoL 100 MG TABLET PO ×2 (08:40→18:00)
[2023-05-15] MEDS: SPIRONOLACTONE 25 MG TABLET PO (08:40)
[2023-05-15] MEDS: FUROSEMIDE 20 MG TABLET 60 MG PO (08:40)
[2023-05-15] MEDS: EMPAGLIFLOZIN 10 MG TABLET PO (08:40)
[2023-05-15] MEDS: ACIDOPHILUS/BULGARICUS CHEWABLE TABLET 1 TABLET PO (08:40)
[2023-05-15] MEDS: MEROPENEM 1 GM/NS 100 ML 1 GM/100 ML BAG IVPB (08:41)
[2023-05-15] MEDS: ENOXAPARIN 30 MG/0.3 ML SYRINGE SUB-Q (08:42)
[2023-05-15] MEDS: COLLAGENASE OINT 30 GM TUBE 1 APPLIC TOPICAL (08:42)
--- NOTE | 2023-05-15 12:18 | P.PNNP_ITS ---
Progress Note: A&P Assessment and Plan (1) Acute kidney injury: Code(s): N17.9 - Acute kidney failure, unspecified Status: Acute Assessment and Plan: * relatively stable since admisison * outpatient labs noted creatinine of 3.1mg/dl on 04/26 and 05/06/23 * admission creatinine 2.3mg/dl * presumably due to infection (wounds + UTI) in the context of chronic diuretic therapy (HCTZ + spironolactone) along with XUAN-I use * drug reaction?? 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 * evaluation to date: * urine electrolytes (by FeUrea) are prerenal * urine eosinophils negative * CPK okay * UA c/w with infection * serologies pending * maria c hold lisinopril and HCTZ + spironolactone * watch volume status given history of CHF * consider trial of IVFs (?) * follow repeat labs and UOP (2) Stage 3a chronic kidney disease: Code(s): N18.31 - Chronic kidney disease, stage 3a Status: Chronic Assessment and Plan: * baseline creatinine seems to rub around 1.0 - 1.1mg/dl * presumably due to HTN, DM, PVD, diastolic CHF, PHYLICIA and age-related change (3) UTI (urinary tract infection): Qualifiers: Urinary tract infection type: site unspecified Hematuria presence: without hematuria Qualified Code(s): N39.0 - Urinary tract infection, site not specified Code(s): N39.0 - Urinary tract infection, site not specified Status: Acute Assessment and Plan: * admission UA highly suggestive * urine culture with E.coli * on antibiotics (4) Stasis ulcer: Qualifiers: Venous stasis ulcer site: calf Laterality: right Code(s): I83.009 - Varicose veins of unspecified lower extremity with ulcer of unspecified site; L97.909 - Non-pressure chronic ulcer of unspecified part of unspecified lower leg with unspecified severity Status: Acute Assessment and Plan: * noted on right posterior calf and dorsal aspect of right foot * wound care following * on antibiotics already (5) Diastolic congestive heart failure: Code(s): I50.30 - Unspecified diastolic (congestive) heart failure Status: Acute Assessment and Plan: * appears compensated/euvolemic at this time * was lasix and spironolactone * consider holding diuretic dosage given #1(?) (6) DM type 2 (diabetes mellitus, type 2): Qualifiers: Diabetes mellitus detention insulin use: unspecified manager intermediate insulin use status Diabetes mellitus complication status: without complication Qualified Code(s): E11.9 - Type 2 diabetes mellitus without complications Code(s): E11.9 - Type 2 diabetes mellitus without complications Status: Acute Assessment and Plan: * follow accu-checks * glycemic control per hospitalists Will continue to follow Subjective Date/time seen: 05/15/23 12:18 Interval history: Follow-up for acute kidney injury/acute renal failure on chronic kidney disease. Patient's mentation seems to be better in general; oral intake still seems suboptimal per nursing; no acute distress voiced at the time of my visit. Exam Narrative: General: elderly female in NAD Heart: normal S1 and S2; no rub Lungs: clear to auscultation Abdomen: soft, nontender, nondistended, positive bowel sounds Extremities: no cyanosis or clubbing; no edema Skin: warm and dry Objective
--- NOTE | 2023-05-15 12:18 | PM.PNNEP ---
Progress Note: A&P Assessment and Plan (1) Acute kidney injury: Code(s): N17.9 - Acute kidney failure, unspecified Status: Acute Assessment and Plan: relatively stable since admisison outpatient labs noted creatinine of 3.1mg/dl on 04/26 and 05/06/23 admission creatinine 2.3mg/dl presumably due to infection (wounds + UTI) in the context of chronic diuretic therapy (HCTZ + spironolactone) along with XUAN-I use drug reaction?? 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 evaluation to date: urine electrolytes (by FeUrea) are prerenal urine eosinophils negative CPK okay UA c/w with infection serologies pending maria c hold lisinopril and HCTZ + spironolactone watch volume status given history of CHF consider trial of IVFs (?) follow repeat labs and UOP (2) Stage 3a chronic kidney disease: Code(s): N18.31 - Chronic kidney disease, stage 3a Status: Chronic Assessment and Plan: baseline creatinine seems to rub around 1.0 - 1.1mg/dl presumably due to HTN, DM, PVD, diastolic CHF, PHYLICIA and age-related change (3) UTI (urinary tract infection): Qualifiers: Urinary tract infection type: site unspecified Hematuria presence: without hematuria Qualified Code(s): N39.0 - Urinary tract infection, site not specified Code(s): N39.0 - Urinary tract infection, site not specified Status: Acute Assessment and Plan: admission UA highly suggestive urine culture with E.coli on antibiotics (4) Stasis ulcer: Qualifiers: Venous stasis ulcer site: calf Laterality: right Code(s): I83.009 - Varicose veins of unspecified lower extremity with ulcer of unspecified site; L97.909 - Non-pressure chronic ulcer of unspecified part of unspecified lower leg with unspecified severity Status: Acute Assessment and Plan: noted on right posterior calf and dorsal aspect of right foot wound care following on antibiotics already (5) Diastolic congestive heart failure: Code(s): I50.30 - Unspecified diastolic (congestive) heart failure Status: Acute Assessment and Plan: appears compensated/euvolemic at this time was lasix and spironolactone consider holding diuretic dosage given #1(?) (6) DM type 2 (diabetes mellitus, type 2): Qualifiers: 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 Patient's mentation seems to be better in general; oral intake still seems suboptimal per nursing; no acute distress voiced at the time of my visit. Exam Narrative: General: elderly female in NAD Heart: normal S1 and S2; no rub Lungs: clear to auscultation Abdomen: soft, nontender, nondistended, positive bowel sounds Extremities: no cyanosis or clubbing; no edema Skin: warm and dry Objective Data Vital Signs Vital Signs: Vital Signs Temp Pulse Resp BP Pulse Ox O2 Del Method 05/15/23 12:00 97.6 F 100 18 120/58 L 96 05/15/23 08:00 Room Air 05/15/23 08:40 96 05/15/23 05:02 97.5 F L 105 H 18 117/53 L 96 05/15/23 04:00 123 H 05/15/23 00:00 126 H 05/14/23 20:00 117 H 05/14/23 20:15 97.4 F L 112 H 17 119/43 L 92 Intake/Output Intake/Output: Intake & Output 05/12/23 05/13/23 05/14/23 05/15/23 23:59 23:59 23:59
[2023-05-15 12:21] LABS: Glucose Point of Care 154 mg/dl (65-105)
--- NOTE | 2023-05-15 12:31 | PM.IMPN ---
Progress Note: A&P Assessment and Plan (1) Sepsis: Code(s): A41.9 - Sepsis, unspecified organism Status: Acute Assessment and Plan: Associated with sepsis present on admission reviewed culture results will discuss with ID pharmacy switched to meropenem 05/15/23: Continue Meropenem (2) UTI (urinary tract infection): Qualifiers: Urinary tract infection type: site unspecified Hematuria presence: without hematuria Qualified Code(s): N39.0 - Urinary tract infection, site not specified Code(s): N39.0 - Urinary tract infection, site not specified Status: Acute Assessment and Plan: - UA: - urine culture obtained on 05/08 - review of micro 05/08 - UC, multidrug resistant E.Coli 05/08 - BC, no growth 04/09 - BC, no growth 04/05 - BC, no growth 04/03 - BC, Group A Strep 04/03 - UC, E. Coli that is MDR (Bactrim, Cipro, Ceftriaxone, Levaquin, Ancef) 12/10 - UC, E. Coli that is MDR (Bactrim, Cefepime, Cipro, Ceftriaxone, Levaquin, Ancef) -will discuss with ID pharmacy will switch to meropenem patient to complete 7 days of meropenem 05/15/23: Complete Meropenem (3) Stasis ulcer: Qualifiers: Venous stasis ulcer site: calf Laterality: right Code(s): I83.009 - Varicose veins of unspecified lower extremity with ulcer of unspecified site; L97.909 - Non-pressure chronic ulcer of unspecified part of unspecified lower leg with unspecified severity Status: Acute Assessment and Plan: - shallow/wide wound to R calf, small 1 cm ulceration to R posterior calf, and small 1 cm ulceration to dorsal aspect of R foot. - wound RN has assessed - continue wound care per their recommendations - wound care consult ordered for follow-up (4) Diastolic congestive heart failure: Code(s): I50.30 - Unspecified diastolic (congestive) heart failure Status: Acute Assessment and Plan: -patient on Lasix Aldactone and chlorothiazide looks development monitor Reviewed recent echo showed patient has moderate to severe aortic stenosis follow-up with PCP as outpatient (5) Chronic kidney disease, stage 3: Code(s): N18.30 - Chronic kidney disease, stage 3 unspecified Status: Acute Assessment and Plan: Acute and of chronic renal failure improved nephrology following continue diuresis (6) DM type 2 (diabetes mellitus, type 2): Qualifiers: Diabetes mellitus track manager insulin use: unspecified assisted insulin use status Diabetes mellitus complication status: without complication Qualified Code(s): E11.9 - Type 2 diabetes mellitus without complications Code(s): E11.9 - Type 2 diabetes mellitus without complications Status: Acute Assessment and Plan: Continue home medication Plan Altered mental status secondary to acute metabolic encephalopathy probably related to above refused t CT scan of the head unlikely patient had acute stroke continue neuro Avoid narcotics as much as possible Sleep hygiene Telemonitor Was patient refused MRI of the brain refused CT scan of the head Neurology was consulted patient has preexistent right leg weakness Anticipate discharge to rehab once mental status improved and once antibiotic finalized patient will need 7 days total of meropenem starting today day 1 Time Spent With Patient Time with patient: 25 - 35 minutes Subjective Date/time seen: 05/15/23 12:31 Interval history: 78 y/o F presents here with generalized weakness and reduced appetite with PMH of HTN, CKD, CHF, HTN, HLD, hypothyroidism, PHYLICIA on CPAP, PVD, DM2, and aortic stenosis. Patient reports that she has been feeling generally weak and more fatigued. Patient is poor historian. Unable to elaborate on timeframe. Denies any burning with urination or hematuria. Endorses urinary frequency, but this is patient's baseline. Denies any abdominal pain or suprapubic pain. Patient reports overall improvement in her l
--- NOTE | 2023-05-15 16:40 | WPDGIPROGNO ---
Progress Note: A&P Assessment and Plan (1) Nausea and vomiting in adult: Code(s): R11.2 - Nausea with vomiting, unspecified Status: Acute Assessment and Plan: no more episodes and resolved she is eating will follow from afar (2) Sepsis: Code(s): A41.9 - Sepsis, unspecified organism Status: Acute Assessment and Plan: on abx better (3) Acute UTI: Code(s): N39.0 - Urinary tract infection, site not specified Status: Acute (4) Stage 3a chronic kidney disease: Code(s): N18.31 - Chronic kidney disease, stage 3a Status: Chronic (5) Altered mental status: Qualifiers: Altered mental status type: unspecified Qualified Code(s): R41.82 - Altered mental status, unspecified Code(s): R41.82 - Altered mental status, unspecified Status: Acute (6) Diabetic leg ulcer: Code(s): E11.622 - Type 2 diabetes mellitus with other skin ulcer; L97.909 - Non-pressure chronic ulcer of unspecified part of unspecified lower leg with unspecified severity Status: Acute Assessment and Plan: wound care, on abx Subjective Date/time seen: 05/15/23 16:40 Interval history: no report of more nausea, she is eating. Review of Systems Review of Systems: All systems reviewed & are unremarkable except as noted in HPI and below Exam Const: General: comfortable and no acute distress HENMT: Face/Nose/Sinus: Normal nares present Eyes: Sclera: sclerae normal Neck: Neck: supple Resp: Effort & Inspection: normal respiratory effort Cardio: Rhythm: regular rhythm GI: GI Palp: Yes Soft to palpation and No Tenderness to palpation present (GI) Auscultation: normal bowel sounds Skin: Other: rt leg ulcer- covered with dressing Neuro: Speech: normal speech Other: awake and alert, gets confused sometimes Extrem: Other: wound in rt leg Psych: Affect: Anxious affect present Objective Data Vital Signs Vital Signs: Vital Signs - 24 hr 05/14/23 20:15 05/14/23 20:00 05/15/23 00:00 Temperature 97.4 F L Pulse Rate 112 H 117 H 126 H Respiratory Rate 17 Blood Pressure 119/43 L Pulse Oximetry 92 Oxygen Delivery 05/15/23 04:00 05/15/23 05:02 05/15/23 08:40 Temperature 97.5 F L Pulse Rate 123 H 105 H 96 Respiratory Rate 18 Blood Pressure 117/53 L Pulse Oximetry 96 Oxygen Delivery 05/15/23 08:00 05/15/23 14:00 Temperature 97.6 F Pulse Rate 100 Respiratory Rate 18 Blood Pressure 120/58 L Pulse Oximetry 96 Oxygen Delivery Room Air Intake/Output Intake/Output: Intake & Output 05/12/23 05/13/23 05/14/23 05/15/23 23:59 23:59 23:59 23:59 Intake Total 300 1652 920 720 Output Total 100 300 200 Balance 200 1352 720 720 Meds/Results Medications: Active Medications Generic Name Dose Route Start Last Admin Trade Name Freq PRN Reason Stop Dose Admin Acetaminophen 650 mg 05/10/23 14:05 05/11/23 09:08 Acetaminophen 325 Mg Tablet PO 650 mg Q4H PRN Administration Mild Pain (1-3) Hydrocodone Bitart/Acetaminophen 1 tab 05/10/23 13:46 05/10/23 14:12 Hydrocodone/Acetaminophen (*Crx) 5-325 Mg Tablet PO 1 tab Q6H PRN Administration Pain Rated 8-10 Cilostazol 100 mg 05/10/23 09:00 05/15/23 08:40 Cilostazol 100 Mg Tablet PO 100 mg BID PREMA Administration Collagenase 1 applic 05/09/23 09:00 05/15/23 08:42 Collagenase Oint 30 Gm Tube TOPICAL 1 applic QAM PREMA Administration Dextrose 12.5 gm 05/09/23 17:50 Dextrose 50% 25 Gm/50 Ml Syringe IV PUSH PRN PRN Hypoglycemia Protocol Diphenhydramine HCl 12.5 mg 05/09/23 17:48 Diphenhydramine Hcl Elixir 12.5 Mg/5 Ml Udc PO PRN PRN Itching Empagliflozin 10 mg 05/10/23 09:00 05/15/23 08:40 Empagliflozin 10 Mg Tablet PO 06/09/23 08:59 10 mg DAILY PREMA Administration Enoxaparin Sodium 30 mg 05/10/23 09:00 05/15/23 08:42 Enoxaparin 30
[2023-05-15 16:58] LABS: Glucose Point of Care 126 mg/dl (65-105)
--- NOTE | 2023-05-15 19:13 | WPDNEUROPN ---
Progress Note: A&P Assessment and Plan (1) Memory dysfunction: Code(s): R41.3 - Other amnesia Status: Acute (2) Stage 3a chronic kidney disease: Code(s): N18.31 - Chronic kidney disease, stage 3a Status: Chronic (3) DM type 2 (diabetes mellitus, type 2): Qualifiers: Diabetes mellitus intermodal customer service insulin use: unspecified group home insulin use status Diabetes mellitus complication status: without complication Qualified Code(s): E11.9 - Type 2 diabetes mellitus without complications Code(s): E11.9 - Type 2 diabetes mellitus without complications Status: Acute Plan With regard to the mild memory loss I discussed with the patient and her who was present at the time that since sees stable and doing better today he can follow-up in my office in 2 months time to see how she is doing. Possibility of mild metabolic encephalopathy with a concurrent medical problems versus underlying degenerative dementia would be a consideration in terms of differential diagnosis. I should go ahead and order a B12 and folic acid level vitamin-D and thyroid function test. CT scan of brain was reviewed this did not show any significant abnormality. I should be glad to see her for follow-up in my office in 2 months time If so desired. Subjective Date/time seen: 05/15/23 19:13 Interval history: History of memory loss. Please refer to previous Neurology consultation. According to the she is doing better today. No additional new symptoms to report. Review of Systems Review of Systems: No specific symptoms reported on review of symptoms. Exam Narrative: No aphasia or dysarthria PSC able to name 5 fruits however she could not tell me name of 5 cities and she stopped after 2. She knew the month and the year and current whereabouts. Exam showed cranial changes distally intact. Motor system normal power and tone in both upper lower limbs. Deep tendon reflexes did not show any asymmetry. No involuntary movements are seen. Remainder of the exam findings were unremarkable. Objective Data Vital Signs Vital Signs: Vital Signs - 24 hr 05/14/23 20:15 05/14/23 20:00 05/15/23 00:00 Temperature 36.3 C L Pulse Rate 112 H 117 H 126 H Respiratory Rate 17 Blood Pressure 119/43 L Pulse Oximetry 92 Oxygen Delivery 05/15/23 04:00 05/15/23 05:02 05/15/23 08:40 Temperature 36.4 C L Pulse Rate 123 H 105 H 96 Respiratory Rate 18 Blood Pressure 117/53 L Pulse Oximetry 96 Oxygen Delivery 05/15/23 08:00 05/15/23 14:00 Temperature 36.4 C Pulse Rate 100 Respiratory Rate 18 Blood Pressure 120/58 L Pulse Oximetry 96 Oxygen Delivery Room Air Intake/Output Intake/Output: Intake & Output 05/12/23 05/13/23 05/14/23 05/15/23 23:59 23:59 23:59 23:59 Intake Total 300 1652 920 900 Output Total 100 300 200 Balance 200 1352 720 900 Meds/Results Medications: Active Medications Generic Name Dose Route Start Last Admin Trade Name Freq PRN Reason Stop Dose Admin Acetaminophen 650 mg 05/10/23 14:05 05/11/23 09:08 Acetaminophen 325 Mg Tablet PO 650 mg Q4H PRN Administration Mild Pain (1-3) Hydrocodone Bitart/Acetaminophen 1 tab 05/10/23 13:46 05/10/23 14:12 Hydrocodone/Acetaminophen (*Crx) 5-325 Mg Tablet PO 1 tab Q6H PRN Administration Pain Rated 8-10 Cilostazol 100 mg 05/10/23 09:00 05/15/23 18:00 Cilostazol 100 Mg Tablet PO 100 mg BID PREMA Administration Collagenase 1 applic 05/09/23 09:00 05/15/23 08:42 Collagenase Oint 30 Gm Tube TOPICAL 1 applic QAM PREMA Administration Dextrose 12.5 gm 05/09/23 17:50 Dextrose 50% 25 Gm/50 Ml Syringe IV PUSH PRN PRN Hypoglycemia Protocol Diphenhydramine HCl 12.5 mg 05/09/23 17:48 Diphenhydramine Hcl Elixir 12.5 Mg/5 Ml Udc PO PRN PRN Itching Empagliflozin 10 mg 05/10/23 09:00 05/15/23 08:40 Empaglif
[2023-05-15 20:12] LABS: Vitamin D 25 Hydroxy 56.1 ng/mL
[2023-05-15 20:15] LABS: Cholesterol 161 mg/dL (0-200); HDL Direct 28 mg/dL; Triglycerides 220 mg/dL (<150)
[2023-05-15 20:27] LABS: LDL Cholesterol Direct 88 mg/dL
[2023-05-15 20:31] LABS: Glucose Point of Care 125 mg/dl (65-105)
[2023-05-15 21:22] LABS: Folic Acid 4.6 ng/mL (2.76->20)
[2023-05-15] MEDS: MEROPENEM 500 MG in SODIUM CHLORIDE 0.9% IV 100 ML 200 ML IVPB (21:26)
[2023-05-16] VITALS (13 sets, daily range): BP systolic 112–117; BP diastolic 50–64; PULSE 76–126; RESP 16–20; TEMP 36.7–37; O2SAT 94–100
[2023-05-16 05:28] LABS: Basophils Absolute Auto 0.1 K/mm3 (0.0-0.1); Eosinophils Absolute Auto 0.2 K/mm3 (0-0.3); Eosinophils Percent Auto 2.5 % (0-4.4); Hematocrit 35.1 % (37.0-47.0); Immature Granulocyte Absolute 0.03 K/mm3 (0.00-0.031); Immature Granulocyte Percent A 0.4 % (0-0.5); Lymphocytes Absolute Auto 1.69 K/mm3 (0.9-3.2); Lymphocytes Percent Auto 24.7 % (18.3-44.2); Mean Corpuscular HGB Conc 31.3 g/dl (32-36); Mean Corpuscular Volume 86.2 fl (80-100); Mean Platelet Volume 10.8 fl (7.4-10.4); Monocytes Absolute Auto 0.8 K/mm3 (0.1-0.6); Monocytes Percent Auto 12.3 % (2.6-8.5); Neutrophils Percent Auto 59.1 % (45.5-73.1); Platelet Count Result 391 k/mm3 (150-375); Red Blood Count 4.07 M/mm3 (4.2-5.4); Red Cell Distribution Width 16.6 % (11.5-14.5); White Blood Count 6.8 K/mm3 (4.5-10.0)
[2023-05-16 05:36] LABS: Alanine Aminotransferase 11 U/L (6-35); Albumin Level 3.4 g/dL (3.5-5.1); Alkaline Phosphatase 56 U/L (38-126); Anion Gap 6 mmol/L (8-16); Aspartate Amino Transferase 29 U/L (14-36); Bilirubin,Total 0.5 mg/dL (0.2-1.3); Blood Urea Nitrogen 41 mg/dL (7-17); Calcium 9.7 mg/dL (8.4-10.2); Carbon Dioxide 28 mmol/L (22-30); Chloride 99 mmol/L (98-107); Complement C3 131 mg/dL (88-165); Estimated CRCL calculation 25 ml/min; Estimated Glomerular Filt Rate 26; Glucose 111 mg/dL (65-110); Magnesium 1.8 mg/dL (1.6-2.3); Sodium 133 mmol/L (137-145)
[2023-05-16] MEDS: LEVOTHYROXINE SODIUM 100 MCG TABLET 200 MCG PO (06:04)
[2023-05-16 08:38] LABS: Glucose Point of Care 118 mg/dl (65-105)
[2023-05-16] MEDS: SODIUM CHLORIDE 0.9% IV 1,000 ML 75 ML IV CONT (09:41)
[2023-05-16] MEDS: ENOXAPARIN 30 MG/0.3 ML SYRINGE SUB-Q (09:42)
[2023-05-16] MEDS: cilostazoL 100 MG TABLET PO ×2 (09:42→18:24)
[2023-05-16] MEDS: ACIDOPHILUS/BULGARICUS CHEWABLE TABLET 1 TABLET PO (09:42)
[2023-05-16] MEDS: METOPROLOL SUCCINATE EXT REL 12.5 MG TABCR PO (09:42)
[2023-05-16] MEDS: COLLAGENASE OINT 30 GM TUBE 1 APPLIC TOPICAL (09:42)
[2023-05-16] MEDS: EMPAGLIFLOZIN 10 MG TABLET PO (09:43)
[2023-05-16] MEDS: TOLNAFTATE 1% POWDER 45 GM BTL 1 APPLIC TOPICAL ×2 (09:43→21:59)
[2023-05-16] MEDS: MEROPENEM 500 MG in SODIUM CHLORIDE 0.9% IV 100 ML 200 ML IVPB ×2 (09:50→21:59)
--- NOTE | 2023-05-16 10:16 | P.PNNP_ITS ---
Progress Note: A&P Assessment and Plan (1) Acute kidney injury: Code(s): N17.9 - Acute kidney failure, unspecified Status: Acute Assessment and Plan: * relatively stable since admisison * outpatient labs noted creatinine of 3.1mg/dl on 04/26 and 05/06/23 * admission creatinine 2.3mg/dl * presumably due to infection (wounds + UTI) in the context of chronic diuretic therapy (HCTZ + spironolactone) along with XUAN-I use * drug reaction?? 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 * evaluation to date: * urine electrolytes (by FeUrea) are prerenal * urine eosinophils negative * CPK okay * UA c/w with infection * serologies pending * maria c hold lisinopril and HCTZ + spironolactone * watch volume status given history of CHF * trial of IVFs today * follow repeat labs and UOP (2) Stage 3a chronic kidney disease: Code(s): N18.31 - Chronic kidney disease, stage 3a Status: Chronic Assessment and Plan: * baseline creatinine seems to rub around 1.0 - 1.1mg/dl * presumably due to HTN, DM, PVD, diastolic CHF, PHYLICIA and age-related change (3) UTI (urinary tract infection): Qualifiers: Urinary tract infection type: site unspecified Hematuria presence: without hematuria Qualified Code(s): N39.0 - Urinary tract infection, site not specified Code(s): N39.0 - Urinary tract infection, site not specified Status: Acute Assessment and Plan: * admission UA highly suggestive * urine culture with E.coli * on antibiotics (4) Stasis ulcer: Qualifiers: Venous stasis ulcer site: calf Laterality: right Code(s): I83.009 - Varicose veins of unspecified lower extremity with ulcer of unspecified site; L97.909 - Non-pressure chronic ulcer of unspecified part of unspecified lower leg with unspecified severity Status: Acute Assessment and Plan: * noted on right posterior calf and dorsal aspect of right foot * wound care following * on antibiotics already (5) Diastolic congestive heart failure: Code(s): I50.30 - Unspecified diastolic (congestive) heart failure Status: Acute Assessment and Plan: * appears compensated/euvolemic at this time * was lasix and spironolactone * consider holding diuretic dosage given #1(?) (6) DM type 2 (diabetes mellitus, type 2): Qualifiers: Diabetes mellitus senior care insulin use: unspecified termite exterminator insulin use status Diabetes mellitus complication status: without complication Dajuan lified Code(s): E11.9 - Type 2 diabetes mellitus without complications Code(s): E11.9 - Type 2 diabetes mellitus without complications Status: Acute Assessment and Plan: * follow accu-checks * glycemic control per hospitalists Will continue to follow Subjective Date/time seen: 05/16/23 10:16 Interval history: Follow-up for acute kidney injury/acute renal failure on chronic kidney disease. No apparent distress voiced at the time of my visit; oral intake remains suboptimal from my discussion with nursing; no issues/events overnight or earlier this morning. Exam Narrative: General: elderly female in NAD Heart: normal S1 and S2; no rub Lungs: clear to auscultation Abdomen: soft, nontender, nondistended, positive bowel sounds Extremities: no cyanosis or clubbing; no edema Skin: warm and intact
--- NOTE | 2023-05-16 10:16 | PM.PNNEP ---
Progress Note: A&P Assessment and Plan (1) Acute kidney injury: Code(s): N17.9 - Acute kidney failure, unspecified Status: Acute Assessment and Plan: relatively stable since admisison outpatient labs noted creatinine of 3.1mg/dl on 04/26 and 05/06/23 admission creatinine 2.3mg/dl presumably due to infection (wounds + UTI) in the context of chronic diuretic therapy (HCTZ + spironolactone) along with XUAN-I use drug reaction?? 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 evaluation to date: urine electrolytes (by FeUrea) are prerenal urine eosinophils negative CPK okay UA c/w with infection serologies pending maria c hold lisinopril and HCTZ + spironolactone watch volume status given history of CHF trial of IVFs today follow repeat labs and UOP (2) Stage 3a chronic kidney disease: Code(s): N18.31 - Chronic kidney disease, stage 3a Status: Chronic Assessment and Plan: baseline creatinine seems to rub around 1.0 - 1.1mg/dl presumably due to HTN, DM, PVD, diastolic CHF, PHYLICIA and age-related change (3) UTI (urinary tract infection): Qualifiers: Urinary tract infection type: site unspecified Hematuria presence: without hematuria Qualified Code(s): N39.0 - Urinary tract infection, site not specified Code(s): N39.0 - Urinary tract infection, site not specified Status: Acute Assessment and Plan: admission UA highly suggestive urine culture with E.coli on antibiotics (4) Stasis ulcer: Qualifiers: Venous stasis ulcer site: calf Laterality: right Code(s): I83.009 - Varicose veins of unspecified lower extremity with ulcer of unspecified site; L97.909 - Non-pressure chronic ulcer of unspecified part of unspecified lower leg with unspecified severity Status: Acute Assessment and Plan: noted on right posterior calf and dorsal aspect of right foot wound care following on antibiotics already (5) Diastolic congestive heart failure: Code(s): I50.30 - Unspecified diastolic (congestive) heart failure Status: Acute Assessment and Plan: appears compensated/euvolemic at this time was lasix and spironolactone consider holding diuretic dosage given #1(?) (6) DM type 2 (diabetes mellitus, type 2): Qualifiers: Diabetes mellitus termite treater insulin use: unspecified mcc insulin use status Diabetes mellitus complication status: without complication Qualified Code(s): E11.9 - Type 2 diabetes mellitus without complications Code(s): E11.9 - Type 2 diabetes mellitus without complications Status: Acute Assessment and Plan: follow accu-checks glycemic control per hospitalists Will continue to follow Subjective Date/time seen: 05/16/23 10:16 Interval history: Follow-up for acute kidney injury/acute renal failure on chronic kidney disease. No apparent distress voiced at the time of my visit; oral intake remains suboptimal from my discussion with nursing; no issues/events overnight or earlier this morning. Exam Narrative: General: elderly female in NAD Heart: normal S1 and S2; no rub Lungs: clear to auscultation Abdomen: soft, nontender, nondistended, positive bowel sounds Extremities: no cyanosis or clubbing; no edema Skin: warm and intact Objective Data Vital Signs Vital Signs: Vital Signs Temp Pulse Resp BP Pulse Ox O2 Del Method FiO2 05/16/23 09:42 108 H 05/16/23 08:35 96 Room Air 21 05/16/23 06:00 98.3 F 100 18 112/55 L 95 05/16/23 00:08 97 Room Air 05/16/23 04:00 126 H 05/16/23 00:00 120 H 05/15/23 20:00 111 H 05/15/23 21:20 Room Air 05/15/23 20:13 98.9 F 111 H 18 139/77 98 05/15/23 16:00 115 H 05/15/23 14:00 97.6 F 100 18
[2023-05-16 12:15] LABS: Glucose Point of Care 152 mg/dl (65-105)
[2023-05-16 15:59] LABS: Appearance Urine Cloudy (Clear); Bacteria Urine None Seen /hpf; Bilirubin Urine Negative (Negative); Blood Urine 2+ (Negative); Budding Yeast Urine Present /hpf; Color Urine Yellow (Yellow); Glucose Urine UA 2+ mg/dL (Negative); Ketones Urine Trace mg/dL (Negative); Leukocyte Esterase Ur 2+ LEU/UL (Negative); Nitrate Urine Negative (Negative); Non Pathogenic Casts 0-2; Protein Urine 1+ mg/dL (Negative); Specific Grav Ur 1.017 (1.001-1.035); Squamous Epithelial Cell Urine Few /hpf (Few); Urobilinogen Urine 0.2 mg/dL (<2.0); WBC Urine >100 /hpf; pH Urine 5.5 (5.0-9.0)
[2023-05-16 16:00] LABS: Add Urine Microscopic? YES
--- NOTE | 2023-05-16 16:00 | PM.IMPN ---
Progress Note: A&P Assessment and Plan (1) Sepsis: Code(s): A41.9 - Sepsis, unspecified organism Status: Acute Assessment and Plan: Associated with sepsis present on admission reviewed culture results will discuss with ID pharmacy switched to meropenem 05/15/23: Continue Meropenem (2) UTI (urinary tract infection): Qualifiers: Urinary tract infection type: site unspecified Hematuria presence: without hematuria Qualified Code(s): N39.0 - Urinary tract infection, site not specified Code(s): N39.0 - Urinary tract infection, site not specified Status: Acute Assessment and Plan: - UA: - urine culture obtained on 05/08 - review of micro 05/08 - UC, multidrug resistant E.Coli 05/08 - BC, no growth 04/09 - BC, no growth 04/05 - BC, no growth 04/03 - BC, Group A Strep 04/03 - UC, E. Coli that is MDR (Bactrim, Cipro, Ceftriaxone, Levaquin, Ancef) 12/10 - UC, E. Coli that is MDR (Bactrim, Cefepime, Cipro, Ceftriaxone, Levaquin, Ancef) -will discuss with ID pharmacy will switch to meropenem patient to complete 7 days of meropenem 05/15/23: Complete Meropenem (3) Stasis ulcer: Qualifiers: Venous stasis ulcer site: calf Laterality: right Code(s): I83.009 - Varicose veins of unspecified lower extremity with ulcer of unspecified site; L97.909 - Non-pressure chronic ulcer of unspecified part of unspecified lower leg with unspecified severity Status: Acute Assessment and Plan: - shallow/wide wound to R calf, small 1 cm ulceration to R posterior calf, and small 1 cm ulceration to dorsal aspect of R foot. - wound RN has assessed - continue wound care per their recommendations - wound care consult ordered for follow-up (4) Diastolic congestive heart failure: Code(s): I50.30 - Unspecified diastolic (congestive) heart failure Status: Acute Assessment and Plan: -patient on Lasix Aldactone and chlorothiazide looks development monitor Reviewed recent echo showed patient has moderate to severe aortic stenosis follow-up with PCP as outpatient (5) Chronic kidney disease, stage 3: Code(s): N18.30 - Chronic kidney disease, stage 3 unspecified Status: Acute Assessment and Plan: Acute and of chronic renal failure improved nephrology following continue diuresis (6) DM type 2 (diabetes mellitus, type 2): Qualifiers: 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 mellitus 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 insulin use: unspecified intermediate insulin use status Diabetes mellitus complication status: without complication Qualified Code(s): E11.9 - Type 2 diabetes mellitus without complications Code(s): E11.9 - Type 2 diabetes mellitus without complications Status: Acute Assessment and Plan: Continue home medication Plan Altered mental status secondary to acute metabolic encephalopathy probably related to above refused t CT scan of the head unlikely patient had acute stroke continue neuro Avoid narcotics as much as possible Sleep hygiene Telemonitor Was patient refused MRI of the brain refused CT scan of the head Neurology was consulted patient has preexistent right leg weakness Anticipate discharge to rehab once mental status improved and once antibiotic finalized patient will need 7 days total of meropenem 05/16/23: Patient does not want to go to SNF/Rehab; tomorrow is day 7 of Meropenem. May DC home with C maybe Time Spent With Patient Time with patient: 25 - 35 minutes Subjective Date/time seen: 05/16/23 16:00 Interval history: Follow-up for acute kidney injury/acute renal failure on chronic kidney disease. No apparent distress voiced at the time of my visit; oral intake remains suboptimal from my discussion with nursing; Review of Systems Review of Systems: 14 systems were reviewed with pertinent positives and negatives per HPI. Except as documented in the HPI/progress notes, all other systems were reviewed and are negat
[2023-05-16 16:20] LABS: Sodium Urine Random 46 meq/L
[2023-05-16 16:27] LABS: Creatinine Urine 120.2 mg/dL; Total Protein Urine Random 35 mg/dL; Ur Ttl Prot Creatinine Ratio 0.29 mg/mg (0-0.20); Urea Random Urine 651 MG/DL
[2023-05-16 17:05] LABS: Glucose Point of Care 110 mg/dl (65-105)
[2023-05-16 20:59] LABS: Glucose Point of Care 112 mg/dl (65-105)
[2023-05-17] VITALS (9 sets, daily range): BP systolic 121–133; BP diastolic 42–47; PULSE 71–126; RESP 12–16; TEMP 36.4–36.8; O2SAT 94–98
[2023-05-17 05:32] LABS: Basophils Absolute Auto 0.1 K/mm3 (0.0-0.1); Basophils Percent Auto 0.9 % (0.2-1.2); Eosinophils Absolute Auto 0.1 K/mm3 (0-0.3); Hematocrit 34.4 % (37.0-47.0); Hemoglobin 10.7 g/dL (12.0-15.0); Immature Granulocyte Absolute 0.03 K/mm3 (0.00-0.031); Immature Granulocyte Percent A 0.5 % (0-0.5); Lymphocytes Percent Auto 26.1 % (18.3-44.2); Mean Corpuscular HGB Conc 31.1 g/dl (32-36); Mean Corpuscular Hemoglobin 26.8 pg (26-34); Mean Corpuscular Volume 86.2 fl (80-100); Mean Platelet Volume 10.5 fl (7.4-10.4); Monocytes Absolute Auto 0.8 K/mm3 (0.1-0.6); Monocytes Percent Auto 12.7 % (2.6-8.5); Neutrophils Absolute Auto 3.8 K/mm3 (1.3-6.7); Neutrophils Percent Auto 57.8 % (45.5-73.1); Platelet Count Result 379 k/mm3 (150-375); Red Blood Count 3.99 M/mm3 (4.2-5.4); Red Cell Distribution Width 16.9 % (11.5-14.5); White Blood Count 6.5 K/mm3 (4.5-10.0)
[2023-05-17 05:50] LABS: Alanine Aminotransferase 11 U/L (6-35); Albumin Level 3.3 g/dL (3.5-5.1); Alkaline Phosphatase 56 U/L (38-126); Anion Gap 5 mmol/L (8-16); Aspartate Amino Transferase 40 U/L (14-36); Bilirubin,Total 0.4 mg/dL (0.2-1.3); Blood Urea Nitrogen 34 mg/dL (7-17); Calcium 9.5 mg/dL (8.4-10.2); Carbon Dioxide 28 mmol/L (22-30); Chloride 101 mmol/L (98-107); Estimated CRCL calculation 32 ml/min; Estimated Glomerular Filt Rate 34; Glucose 109 mg/dL (65-110); Magnesium 1.8 mg/dL (1.6-2.3); Potassium 4.1 mmol/L (3.4-5.0); Sodium 134 mmol/L (137-145)
[2023-05-17] MEDS: LEVOTHYROXINE SODIUM 100 MCG TABLET 200 MCG PO (06:45)
[2023-05-17 08:30] LABS: Glucose Point of Care 98 mg/dl (65-105)
[2023-05-17] MEDS: MEROPENEM 500 MG in SODIUM CHLORIDE 0.9% IV 100 ML 200 ML IVPB ×2 (09:46→20:47)
[2023-05-17] MEDS: EMPAGLIFLOZIN 10 MG TABLET PO (09:49)
[2023-05-17] MEDS: ACIDOPHILUS/BULGARICUS CHEWABLE TABLET 1 TABLET PO (09:49)
[2023-05-17] MEDS: METOPROLOL SUCCINATE EXT REL 12.5 MG TABCR PO (09:49)
[2023-05-17] MEDS: ENOXAPARIN 30 MG/0.3 ML SYRINGE SUB-Q (09:49)
[2023-05-17] MEDS: cilostazoL 100 MG TABLET PO ×2 (09:49→17:18)
[2023-05-17] MEDS: TOLNAFTATE 1% POWDER 45 GM BTL 1 APPLIC TOPICAL ×2 (09:51→20:49)
[2023-05-17] MEDS: COLLAGENASE OINT 30 GM TUBE 1 APPLIC TOPICAL (09:51)
[2023-05-17] MEDS: SODIUM CHLORIDE 0.9% IV 500 ML 75 ML IV CONT (09:55)
--- NOTE | 2023-05-17 10:05 | P.PNNP_ITS ---
Progress Note: A&P Assessment and Plan (1) Acute kidney injury: Code(s): N17.9 - Acute kidney failure, unspecified Status: Acute Assessment and Plan: * relatively stable since admisison * outpatient labs noted creatinine of 3.1mg/dl on 04/26 and 05/06/23 * admission creatinine 2.3mg/dl * presumably due to infection (wounds + UTI) in the context of chronic diuretic therapy (HCTZ + spironolactone) along with XUAN-I use * drug reaction?? -- has been on multiple antibiotics in the last couple of months, however there is no rash and no peripheral eosinophilia. 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 * evaluation to date: * urine electrolytes (by FeUrea) are prerenal * urine eosinophils negative * CPK okay * UA c/w with infection * C3 and C4 are okay. Otherwise,serologies pending * continue holding lisinopril and HCTZ + spironolactone * watch volume status given history of CHF * she received a little bit of fluid yesterday via antibiotics. * Volume status looks okay. * She has an improvement in her renal function * will check another lab tomorrow. (2) Stage 3a chronic kidney disease: Code(s): N18.31 - Chronic kidney disease, stage 3a Status: Chronic Assessment and Plan: * baseline creatinine seems to rub around 1.0 - 1.1mg/dl * presumably due to HTN, DM, PVD, diastolic CHF, PHYLICIA and age-related change (3) UTI (urinary tract infection): Qualifiers: Urinary tract infection type: site unspecified Hematuria presence: without hematuria Qualified Code(s): N39.0 - Urinary tract infection, site not specified Code(s): N39.0 - Urinary tract infection, site not specified Status: Acute Assessment and Plan: * admission UA highly suggestive * urine culture with E.coli * on Meropenem (4) Stasis ulcer: Qualifiers: Venous stasis ulcer site: calf Laterality: right Code(s): I83.009 - Varicose veins of unspecified lower extremity with ulcer of unspecified site; L97.909 - Non-pressure chronic ulcer of unspecified part of unspecified lower leg with unspecified severity Status: Acute Assessment and Plan: * noted on right posterior calf and dorsal aspect of right foot * wound care following * on meropenem (5) Diastolic congestive heart failure: Code(s): I50.30 - Unspecified diastolic (congestive) heart failure Status: Acute Assessment and Plan: * appears compensated/euvolemic at this time * was on lasix and spironolactone. These are currently on hold (6) DM type 2 (diabetes mellitus, type 2): Qualifiers: Diabetes mellitus alf insulin use: unspecified alf insulin use status Diabetes mellitus complication status: without complication Qualified Code(s): E11.9 - Type 2 diabetes mellitus without complications Code(s): E11.9 - Type 2 diabetes mellitus without complications Status: Acute Assessment and Plan: * follow accu-checks * glycemic control per hospitalists Subjective Date/time seen: 05/17/23 10:05 Interval history: patient feels okay. No chest pain or shortness of breath Exam Narrative: General: elderly female in NAD Heart: normal S1 and S2; no rub or gallop Lungs: clear to auscultation Abdomen: soft, nontender, nondistended, positive bowel sounds Extremities: no cyanosis or clubbing; no edema Skin: no rash
--- NOTE | 2023-05-17 10:05 | PM.PNNEP ---
Progress Note: A&P Assessment and Plan (1) Acute kidney injury: Code(s): N17.9 - Acute kidney failure, unspecified Status: Acute Assessment and Plan: relatively stable since admisison outpatient labs noted creatinine of 3.1mg/dl on 04/26 and 05/06/23 admission creatinine 2.3mg/dl presumably due to infection (wounds + UTI) in the context of chronic diuretic therapy (HCTZ + spironolactone) along with XUAN-I use drug reaction?? -- has been on multiple antibiotics in the last couple of months, however there is no rash and no peripheral eosinophilia. 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 evaluation to date: urine electrolytes (by FeUrea) are prerenal urine eosinophils negative CPK okay UA c/w with infection C3 and C4 are okay. Otherwise,serologies pending continue holding lisinopril and HCTZ + spironolactone watch volume status given history of CHF she received a little bit of fluid yesterday via antibiotics. Volume status looks okay. She has an improvement in her renal function will check another lab tomorrow. (2) Stage 3a chronic kidney disease: Code(s): N18.31 - Chronic kidney disease, stage 3a Status: Chronic Assessment and Plan: baseline creatinine seems to rub around 1.0 - 1.1mg/dl presumably due to HTN, DM, PVD, diastolic CHF, PHYLICIA and age-related change (3) UTI (urinary tract infection): Qualifiers: Urinary tract infection type: site unspecified Hematuria presence: without hematuria Qualified Code(s): N39.0 - Urinary tract infection, site not specified Code(s): N39.0 - Urinary tract infection, site not specified Status: Acute Assessment and Plan: admission UA highly suggestive urine culture with E.coli on Meropenem (4) Stasis ulcer: Qualifiers: Venous stasis ulcer site: calf Laterality: right Code(s): I83.009 - Varicose veins of unspecified lower extremity with ulcer of unspecified site; L97.909 - Non-pressure chronic ulcer of unspecified part of unspecified lower leg with unspecified severity Status: Acute Assessment and Plan: noted on right posterior calf and dorsal aspect of right foot wound care following on meropenem (5) Diastolic congestive heart failure: Code(s): I50.30 - Unspecified diastolic (congestive) heart failure Status: Acute Assessment and Plan: appears compensated/euvolemic at this time was on lasix and spironolactone. 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 No chest pain or shortness of breath Exam Narrative: General: elderly female in NAD Heart: normal S1 and S2; no rub or gallop Lungs: clear to auscultation Abdomen: soft, nontender, nondistended, positive bowel sounds Extremities: no cyanosis or clubbing; no edema Skin: no rash Objective Data Vital Signs Vital Signs: Vital Signs - 24 hr 05/16/23 13:55 05/16/23 12:00 05/16/23 16:00 Temperature 98.6 F Pulse Rate 112 H 122 H 109 H Respiratory Rate 20 Blood Pressure 117/64 Pulse Oximetry 100 Oxygen Delivery Fraction of Inspired Oxygen 05/16/23 19:53 05/16/23 20:00 05/16/23 20:00 Temperature 98.1 F Pulse Rate 114 H 76 Respiratory Rate 16 Blood Pressure 113/50 L Pulse Oximetry 99 Oxygen Delivery Room Air Fraction of Inspire
[2023-05-17 12:13] LABS: Glucose Point of Care 126 mg/dl (65-105)
--- NOTE | 2023-05-17 12:49 | PM.IMPN ---
Progress Note: A&P Assessment and Plan (1) Memory dysfunction: Code(s): R41.3 - Other amnesia Status: Acute (2) Stage 3a chronic kidney disease: Code(s): N18.31 - Chronic kidney disease, stage 3a Status: Chronic (3) Acute UTI: Code(s): N39.0 - Urinary tract infection, site not specified Status: Acute (4) Urinary tract infection due to extended-spectrum beta lactamase (ESBL) producing Escherichia coli: Code(s): N39.0 - Urinary tract infection, site not specified; B96.29 - Other Escherichia coli [E. coli] as the cause of diseases classified elsewhere; Z16.12 - Extended spectrum beta lactamase (ESBL) resistance Status: Acute Plan # ESBL E coli UTI -patient has urine tract resistance to numerous agents, sensitive to carbapenems -antibiotic: Meropenem day 5, will continue 7 day course -patient confusion episode likely from her underlying dementia # generalized weakness -PT/OT consulted: home health # acute kidney injury on CKD stage IIIA -likely prerenal from the E coli UTI -appreciate nephrology consultation: Ordered inflammatory workup, serologies pending. 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 HS, hypoglycemia protocol, A1c 6.4 -heart failure preserved ejection with grade 1 diastolic dysfunction: EF 60-65%, echo Mar 2023. Spironolactone, b-arin, acei, jardiance. lasix held -essential hypertension: Metoprolol, holding lisinopril, hctz -hypothyroidism: Synthroid -on pletal -supplements: d3, acidophilus Diet: Heart healthy with dietary supplement DVT prophylaxis: Lovenox Code status: Full code Disposition: Home with home health in 2 days after completing week of meropenem Time Spent With Patient Time: 35 min Subjective Date/time seen: 05/17/23 12:49 Interval history: Patient seen and examined. She is doing well with no new complaints. Patient is anxious to go home. I explained her the plan is to have a week of IV meropenem based on cultures. Patient is on day 5, will complete 2 more days of antibiotic. Creatinine is 1.5, improving to baseline 1.1. Svp Monetization is following case. Patient denies fever, chills, nausea, vomiting, diarrhea, chest pain, shortness of breath. Review of Systems Review of Systems: 10 point ROS complete, negative other than what is specified in HPI. Exam Narrative: - GENERAL: Pleasant woman in no acute distress. - EYES: EOMI. Anicteric. - HENT: Moist mucous membranes. - LUNGS: Clear to auscultation bilaterally, no wheezing, rhonchi, or rales. - CARDIOVASCULAR: Regular rate and rhythm. No murmur. No JVD. - ABDOMEN: Soft, non-tender and non-distended. No palpable masses. - EXTREMITIES: Peripheral pulses 2+. Non-tender. - NEUROLOGIC: No focal neurological deficits. CN II-XII grossly intact. - PSYCHIATRIC: Awake, Alert and oriented x 3. Appropriate mood and affect. - SKIN: No rashes or lesions. Warm. - LYMPH: No cervical lymphadenopathy. Objective Data Vital Signs Vital Signs: Vital Signs - 24 hr 05/16/23 13:55 05/16/23 16:00 05/16/23 19:53 Temperature 37.0 C 36.7 C Pulse Rate 112 H 109 H 114 H Respiratory Rate 20 16 Blood Pressure 117/64 113/50 L Pulse Oximetry 100 99 Oxygen Delivery Fraction of Inspired Oxygen 05/16/23 20:00 05/16/23 20:00 05/17/23 00:00 Temperature Pulse Rate 76 71 Respiratory Rate Blood Pressure Pulse Oximetry Oxygen Delivery Room Air Fraction of Inspired Oxygen 05/17/23 04:00 05/17/23 06:00 05/16/23 23:45 Temperature 36.8 C Pulse Rate 77 105 H Respiratory Rate 16 Blood Pressure 121/47 L Pulse O
--- NOTE | 2023-05-17 16:29 | PC.NURSE ---
Patient returning from the bathroom with PCT using sarasteady upon morning assessment. Coccyx dressing changed. Patient confused and disoriented intermittently but answers question appropriately. Family arrives at the end of medication pass. Patient occasionally verbally inappropriate. Two more days of IV abx. Trio rounds with . taken home approximately 1500.
[2023-05-17 16:48] LABS: Glucose Point of Care 102 mg/dl (65-105)
[2023-05-17 20:12] LABS: Glucose Point of Care 126 mg/dl (65-105)
[2023-05-18] VITALS (11 sets, daily range): BP systolic 110–131; BP diastolic 43–54; PULSE 92–123; RESP 12–18; TEMP 36.5–37.6; O2SAT 92–98
--- NOTE | 2023-05-18 03:03 | PC.NURSE ---
Daylight Savings Time For Daylight Savings Time Ending in the Fall - Clocks are moved back. For Daylight Savings Time Beginning in the Spring - Clocks are moved ahead. For [facility], the time of change occurs at 0200 hrs. Time is taken from the server support technician. This entry on the patient's chart recognizes the change in time reflected during documentation. Example: 2 entries for vital signs may be charted for 0200 hrs.
[2023-05-18 05:11] LABS: Basophils Absolute Auto 0.1 K/mm3 (0.0-0.1); Basophils Percent Auto 1.1 % (0.2-1.2); Eosinophils Absolute Auto 0.2 K/mm3 (0-0.3); Hematocrit 33.7 % (37.0-47.0); Hemoglobin 10.6 g/dL (12.0-15.0); Immature Granulocyte Absolute 0.03 K/mm3 (0.00-0.031); Immature Granulocyte Percent A 0.4 % (0-0.5); Lymphocytes Absolute Auto 1.89 K/mm3 (0.9-3.2); Lymphocytes Percent Auto 25.7 % (18.3-44.2); Mean Corpuscular HGB Conc 31.5 g/dl (32-36); Mean Corpuscular Hemoglobin 26.8 pg (26-34); Mean Corpuscular Volume 85.1 fl (80-100); Mean Platelet Volume 10.7 fl (7.4-10.4); Monocytes Absolute Auto 0.9 K/mm3 (0.1-0.6); Monocytes Percent Auto 11.5 % (2.6-8.5); Neutrophils Absolute Auto 4.4 K/mm3 (1.3-6.7); Neutrophils Percent Auto 59.3 % (45.5-73.1); Platelet Count Result 391 k/mm3 (150-375); Red Blood Count 3.96 M/mm3 (4.2-5.4); Red Cell Distribution Width 16.5 % (11.5-14.5); White Blood Count 7.4 K/mm3 (4.5-10.0)
[2023-05-18 05:16] LABS: Alanine Aminotransferase 12 U/L (6-35); Albumin Level 3.4 g/dL (3.5-5.1); Alkaline Phosphatase 60 U/L (38-126); Anion Gap 5 mmol/L (8-16); Aspartate Amino Transferase 34 U/L (14-36); Bilirubin,Total 0.4 mg/dL (0.2-1.3); Blood Urea Nitrogen 26 mg/dL (7-17); Calcium 9.6 mg/dL (8.4-10.2); Carbon Dioxide 26 mmol/L (22-30); Chloride 102 mmol/L (98-107); Estimated CRCL calculation 39 ml/min; Estimated Glomerular Filt Rate 44; Glucose 117 mg/dL (65-110); Potassium 3.9 mmol/L (3.4-5.0); Sodium 133 mmol/L (137-145)
[2023-05-18] MEDS: LEVOTHYROXINE SODIUM 100 MCG TABLET 200 MCG PO (06:23)
[2023-05-18 06:45] LABS: Red Blood Cell Folate 515 ng/mL RBC (>280)
--- NOTE | 2023-05-18 08:16 | P.PNNP_ITS ---
Progress Note: A&P Assessment and Plan (1) Acute kidney injury: Code(s): N17.9 - Acute kidney failure, unspecified Status: Acute Assessment and Plan: * relatively stable since admisison * outpatient labs noted creatinine of 3.1mg/dl on 04/26 and 05/06/23 * admission creatinine 2.3mg/dl * presumably due to infection (wounds + UTI) in the context of chronic diuretic therapy (HCTZ + spironolactone) along with XUAN-I use * drug reaction?? 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 * evaluation to date: * urine electrolytes (by FeUrea) are prerenal * urine eosinophils negative * CPK okay * UA c/w with infection * serologies pending * creatinine continues to improve. * She is eating and drinking pretty well. * Continue holding off on IV fluids for now. * Also continue holding the spironolactone, furosemide, lisinopril and hydrochlorothiazide * blood pressure is doing fine (2) Stage 3a chronic kidney disease: Code(s): N18.31 - Chronic kidney disease, stage 3a Status: Chronic Assessment and Plan: * baseline creatinine seems to rub around 1.0 - 1.1mg/dl * presumably due to HTN, DM, PVD, diastolic CHF, PHYLICIA and age-related change (3) UTI (urinary tract infection): Qualifiers: Urinary tract infection type: site unspecified Hematuria presence: without hematuria Qualified Code(s): N39.0 - Urinary tract infection, site not specified Code(s): N39.0 - Urinary tract infection, site not specified Status: Acute Assessment and Plan: * admission UA highly suggestive * urine culture with E.coli * on meropenem (4) Stasis ulcer: Qualifiers: Venous stasis ulcer site: calf Laterality: right Code(s): I83.009 - Varicose veins of unspecified lower extremity with ulcer of unspecified site; L97.909 - Non-pressure chronic ulcer of unspecified part of unspecified lower leg with unspecified severity Status: Acute Assessment and Plan: * noted on right posterior calf and dorsal aspect of right foot * wound care following * getting local wound care * on meropenem (5) Diastolic congestive heart failure: Code(s): I50.30 - Unspecified diastolic (congestive) heart failure Status: Acute Assessment and Plan: * appears compensated/euvolemic at this time * was on lasix and spironolactone * consider holding diuretic dosage given #1(?) (6) DM type 2 (diabetes mellitus, type 2): Qualifiers: 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 She slept okay. No chest pain or shortness of belly doing okay Exam Narrative: General: elderly female in NAD Heart: normal S1 and S2; no rub or gallop Lungs: clear to auscultation Abdomen: soft, nontender, nondistended, positive bowel sounds Extremities: no cyanosis or clubbing; no edema Skin: no nodules or rash
--- NOTE | 2023-05-18 08:16 | PM.PNNEP ---
Progress Note: A&P Assessment and Plan (1) Acute kidney injury: Code(s): N17.9 - Acute kidney failure, unspecified Status: Acute Assessment and Plan: relatively stable since admisison outpatient labs noted creatinine of 3.1mg/dl on 04/26 and 05/06/23 admission creatinine 2.3mg/dl presumably due to infection (wounds + UTI) in the context of chronic diuretic therapy (HCTZ + spironolactone) along with XUAN-I use drug reaction?? 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 evaluation to date: urine electrolytes (by FeUrea) are prerenal urine eosinophils negative CPK okay UA c/w with infection serologies pending creatinine continues to improve. She is eating and drinking pretty well. Continue holding off on IV fluids for now. Also continue holding the spironolactone, furosemide, lisinopril and hydrochlorothiazide blood pressure is doing fine (2) Stage 3a chronic kidney disease: Code(s): N18.31 - Chronic kidney disease, stage 3a Status: Chronic Assessment and Plan: baseline creatinine seems to rub around 1.0 - 1.1mg/dl presumably due to HTN, DM, PVD, diastolic CHF, PHYLICIA and age-related change (3) UTI (urinary tract infection): Qualifiers: Urinary tract infection type: site unspecified Hematuria presence: without hematuria Qualified Code(s): N39.0 - Urinary tract infection, site not specified Code(s): N39.0 - Urinary tract infection, site not specified Status: Acute Assessment and Plan: admission UA highly suggestive urine culture with E.coli on meropenem (4) Stasis ulcer: Qualifiers: Venous stasis ulcer site: calf Laterality: right Code(s): I83.009 - Varicose veins of unspecified lower extremity with ulcer of unspecified site; L97.909 - Non-pressure chronic ulcer of unspecified part of unspecified lower leg with unspecified severity Status: Acute Assessment and Plan: noted on right posterior calf and dorsal aspect of right foot wound care following getting local wound care on meropenem (5) Diastolic congestive heart failure: Code(s): I50.30 - Unspecified diastolic (congestive) heart failure Status: Acute Assessment and Plan: appears compensated/euvolemic at this time was on lasix and spironolactone consider holding diuretic dosage given #1(?) (6) DM type 2 (diabetes mellitus, type 2): Qualifiers: 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 She slept okay. No chest pain or shortness of belly doing okay Exam Narrative: General: elderly female in NAD Heart: normal S1 and S2; no rub or gallop Lungs: clear to auscultation Abdomen: soft, nontender, nondistended, positive bowel sounds Extremities: no cyanosis or clubbing; no edema Skin: no nodules or rash Objective Data Vital Signs Vital Signs: Vital Signs - 24 hr 05/17/23 09:49 05/17/23 09:49 05/17/23 12:00 Temperature Pulse Rate 88 102 H 126 H Respiratory Rate Blood Pressure Pulse Oximetry 05/17/23 15:23 05/17/23 16:00 05/17/23 19:51 Temperature 97.6 F 97.8 F Pulse Rate 111 H 87 103 H Respiratory Rate 12 16 Blood Pressure 130/42 L 133/47 L Pulse Oximetry 96 98 05/17/23 20:00 05/18/23 00:00 05/18/23 04:00 Temperature Pulse Rate 87 113 H 114 H Res
[2023-05-18 08:32] LABS: Glucose Point of Care 132 mg/dl (65-105)
[2023-05-18] MEDS: ENOXAPARIN 30 MG/0.3 ML SYRINGE SUB-Q (09:40)
[2023-05-18] MEDS: TOLNAFTATE 1% POWDER 45 GM BTL 1 APPLIC TOPICAL ×2 (10:04→20:00)
[2023-05-18] MEDS: ONDANSETRON INJ 4 MG/2 ML VIAL IV PUSH (10:07)
--- NOTE | 2023-05-18 10:18 | ECG_ITS ---
Measurements Intervals [place] Rate: 116 P: -14 [place]: 132 QRS: -38 QRSD: 109 T: 104 QT: 338 QTc: 470 Interpretive Statements SINUS TACHYCARDIA LEFT AXIS DEVIATION POOR R WAVE PROGRESSION, ANTERIOR LEADS CONSIDER INFERIOR INFARCT, AGE INDETERMINATE ST-T WAVE ABNORMALITY IN HIGH LATERAL LEADS- CONSIDER ISCHEMIA BASELINE WANDER- V6 ABNORMAL ECG COMPARED TO ECG 04/09/2023 11:55:01 SINUS TACHYCARDIA NOW PRESENT Electronically Signed On 05-18-2023 15:09:38 CDT by Antonio Lopez D.O.
[2023-05-18] MEDS: EMPAGLIFLOZIN 10 MG TABLET PO (10:36)
[2023-05-18] MEDS: METOPROLOL SUCCINATE EXT REL 12.5 MG TABCR PO (10:36)
[2023-05-18 11:46] LABS: Glucose Point of Care 163 mg/dl (65-105)
[2023-05-18] MEDS: COLLAGENASE OINT 30 GM TUBE 1 APPLIC TOPICAL (14:15)
--- NOTE | 2023-05-18 14:43 | PM.IMPN ---
Progress Note: A&P Assessment and Plan (1) Acute kidney injury: Code(s): N17.9 - Acute kidney failure, unspecified Status: Acute (2) Urinary tract infection due to extended-spectrum beta lactamase (ESBL) producing Escherichia coli: Code(s): N39.0 - Urinary tract infection, site not specified; B96.29 - Other Escherichia coli [E. coli] as the cause of diseases classified elsewhere; Z16.12 - Extended spectrum beta lactamase (ESBL) resistance Status: Acute (3) Memory dysfunction: Code(s): R41.3 - Other amnesia Status: Acute (4) Stage 3a chronic kidney disease: Code(s): N18.31 - Chronic kidney disease, stage 3a Status: Chronic (5) Generalized weakness: Code(s): R53.1 - Weakness Status: Acute Plan # ESBL E coli UTI -patient has urine tract resistance to numerous agents, sensitive to carbapenems -antibiotic: Meropenem day 6, will continue 7 day course -patient confusion episode likely from her underlying dementia, back to baseline mentation # acute kidney injury on CKD stage IIIA -likely prerenal from the E coli UTI -appreciate nephrology consultation: Ordered inflammatory workup, serologies pending.? 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 Sliding scale insulin, Accu-Cheks a.c. HS, hypoglycemia protocol, A1c 6.4 -heart failure preserved ejection with grade 1 diastolic dysfunction: EF 60-65%, echo Mar 2023. Spironolactone, b-arin, acei, jardiance. lasix held -essential hypertension: Metoprolol, holding lisinopril, hctz -hypothyroidism: Synthroid -on pletal -supplements: d3, acidophilus Diet:??Heart healthy with dietary supplement DVT prophylaxis:?Lovenox Code status:??Full code Disposition:??Home with home health in 1-2 days Time Spent With Patient Time: 35 minutes Subjective Date/time seen: 05/18/23 14:43 Interval history: Patient seen examined. She is doing well no new complaints. Patient has an elevated tachycardia, EKG shows sinus tachycardia rate 116. If persistent elevated tomorrow and will up titrate beta-arin. Continue meropenem for ESBL E coli UTI. She denies fever, chills, nausea, vomiting, diarrhea, chest pain, shortness of breath. Review of Systems Review of Systems: 10 point ROS complete, negative other than what is specified in HPI. Exam Narrative: - GENERAL:? Pleasant woman in no acute distress. - EYES: EOMI. Anicteric. - HENT: Moist mucous membranes. - LUNGS: Clear to auscultation bilaterally, no wheezing, rhonchi, or rales. - CARDIOVASCULAR: Regular rate and rhythm. No murmur. No JVD. - ABDOMEN: Soft, non-tender and non-distended. No palpable masses. - EXTREMITIES: Peripheral pulses 2+. Non-tender. - NEUROLOGIC: No focal neurological deficits. CN II-XII grossly intact. - PSYCHIATRIC: Awake, Alert and oriented. Appropriate mood and affect. - SKIN: No rashes or lesions. Warm. - LYMPH: No cervical lymphadenopathy. Objective Data Vital Signs Vital Signs: Vital Signs - 24 hr 05/17/23 15:23 05/17/23 16:00 05/17/23 19:51 Temperature 36.4 C 36.6 C Pulse Rate 111 H 87 103 H Respiratory Rate 12 16 Blood Pressure 130/42 L 133/47 L Pulse Oximetry 96 98 Oxygen Delivery 05/17/23 20:00 05/18/23 00:00 05/18/23 04:00 Temperature Pulse Rate 87 113 H 114 H Respiratory Rate Blood Pressure Pulse Oximetry Oxygen Delivery 05/18/23 04:47 05/18/23 09:38 05/18/23 10:36 Temperature 37.6 C Pulse Rate 116 H 114 H 114 H Respiratory Rate 18 16 Blood Pressure 110/43 L 112/54 L Pulse Oximetry 92 98 Oxygen Delivery
[2023-05-18] MEDS: cilostazoL 100 MG TABLET PO (16:22)
[2023-05-18] MEDS: MEROPENEM 1 GM/NS 100 ML 1 GM/100 ML BAG IVPB ×2 (16:22→22:50)
[2023-05-18 16:41] LABS: Glucose Point of Care 106 mg/dl (65-105)
[2023-05-18 21:20] LABS: Glucose Point of Care 125 mg/dl (65-105)
[2023-05-19] VITALS (10 sets, daily range): BP systolic 134–149; BP diastolic 55–72; PULSE 100–119; RESP 18–20; TEMP 36.5–36.8; O2SAT 92–93
[2023-05-19] MEDS: LEVOTHYROXINE SODIUM 100 MCG TABLET 200 MCG PO (05:02)
[2023-05-19 05:17] LABS: Basophils Absolute Auto 0.1 K/mm3 (0.0-0.1); Basophils Percent Auto 1.1 % (0.2-1.2); Eosinophils Absolute Auto 0.2 K/mm3 (0-0.3); Eosinophils Percent Auto 2.7 % (0-4.4); Hematocrit 35.9 % (37.0-47.0); Hemoglobin 11.1 g/dL (12.0-15.0); Immature Granulocyte Absolute 0.02 K/mm3 (0.00-0.031); Immature Granulocyte Percent A 0.3 % (0-0.5); Lymphocytes Absolute Auto 1.98 K/mm3 (0.9-3.2); Lymphocytes Percent Auto 31.5 % (18.3-44.2); Mean Corpuscular HGB Conc 30.9 g/dl (32-36); Mean Corpuscular Volume 87.3 fl (80-100); Mean Platelet Volume 10.2 fl (7.4-10.4); Monocytes Absolute Auto 0.7 K/mm3 (0.1-0.6); Monocytes Percent Auto 11.4 % (2.6-8.5); Neutrophils Absolute Auto 3.3 K/mm3 (1.3-6.7); Platelet Count Result 353 k/mm3 (150-375); Red Blood Count 4.11 M/mm3 (4.2-5.4); Red Cell Distribution Width 16.8 % (11.5-14.5); White Blood Count 6.3 K/mm3 (4.5-10.0)
[2023-05-19 05:44] LABS: Alanine Aminotransferase 11 U/L (6-35); Albumin Level 3.3 g/dL (3.5-5.1); Alkaline Phosphatase 59 U/L (38-126); Anion Gap 4 mmol/L (8-16); Aspartate Amino Transferase 32 U/L (14-36); Bilirubin,Total 0.4 mg/dL (0.2-1.3); Blood Urea Nitrogen 22 mg/dL (7-17); Calcium 9.6 mg/dL (8.4-10.2); Carbon Dioxide 28 mmol/L (22-30); Chloride 103 mmol/L (98-107); Estimated CRCL calculation 38 ml/min; Estimated Glomerular Filt Rate 44; Glucose 109 mg/dL (65-110); Phosphorus 3.3 mg/dL (2.5-4.5); Potassium 4.1 mmol/L (3.4-5.0); Sodium 135 mmol/L (137-145)
[2023-05-19 08:34] LABS: Glucose Point of Care 136 mg/dl (65-105)
[2023-05-19] MEDS: ACIDOPHILUS/BULGARICUS CHEWABLE TABLET 1 TABLET PO (09:08)
[2023-05-19] MEDS: METOPROLOL SUCCINATE EXT REL 12.5 MG TABCR PO (09:08)
[2023-05-19] MEDS: ENOXAPARIN 40 MG/0.4 ML SYRINGE SUB-Q (09:08)
[2023-05-19] MEDS: EMPAGLIFLOZIN 10 MG TABLET PO (09:08)
[2023-05-19] MEDS: TOLNAFTATE 1% POWDER 45 GM BTL 1 APPLIC TOPICAL ×2 (09:09→20:59)
[2023-05-19] MEDS: cilostazoL 100 MG TABLET PO ×2 (09:09→16:53)
[2023-05-19] MEDS: MEROPENEM 1 GM/NS 100 ML 1 GM/100 ML BAG IVPB ×2 (09:09→20:59)
[2023-05-19] MEDS: COLLAGENASE OINT 30 GM TUBE 1 APPLIC TOPICAL (09:10)
--- NOTE | 2023-05-19 11:16 | PCNFU ---
Nutrition Follow-Up Complete: Increased protein energy needs related to wound healing as evidenced by unstageable pressure injury to sacrum Goal: Adequate PO intake for wound healing support Patient is progressing towards goal. We will continue current goal. Pt current nutrition is Heart Healthy. Nutrition recommendation: Last recorded weight is 95.7 kg. Bowel Motility: +Bm reported 05/17 Labs Reviewed:Cr 1.2,BUN 22, Na 135, Alb 3.3 Meds Noted:Jardiance, Lasix, Lovenox. Skin: unstageable-saccum Additional Notes: Patient remains on a heart healthy diet. Oral intake is improving 90% of meal for breakfast today. Patient is drinking diet supplements of Jacob and Ensure for wound healing. Agree with diet orders. Monitoring intakes, weights, labs, supplement tolerance, wound healing, plan of care Follow up in 5 days
[2023-05-19 11:52] LABS: Glucose Point of Care 116 mg/dl (65-105)
--- NOTE | 2023-05-19 12:11 | PM.IMPN ---
Progress Note: A&P Assessment and Plan (1) Acute kidney injury: Code(s): N17.9 - Acute kidney failure, unspecified Status: Acute (2) Urinary tract infection due to extended-spectrum beta lactamase (ESBL) producing Escherichia coli: Code(s): N39.0 - Urinary tract infection, site not specified; B96.29 - Other Escherichia coli [E. coli] as the cause of diseases classified elsewhere; Z16.12 - Extended spectrum beta lactamase (ESBL) resistance Status: Acute (3) Memory dysfunction: Code(s): R41.3 - Other amnesia Status: Acute (4) Stage 3a chronic kidney disease: Code(s): N18.31 - Chronic kidney disease, stage 3a Status: Chronic (5) Generalized weakness: Code(s): R53.1 - Weakness Status: Acute Plan # ESBL E coli UTI -patient has urine tract resistance to numerous agents, sensitive to carbapenems -antibiotic: completing 7 day course of merrem tomorrow morning with last dose -patient confusion episode likely from her underlying dementia, back to baseline mentation # acute kidney injury on CKD stage IIIA, resolved -likely prerenal from the E coli UTI -appreciate nephrology consultation: Ordered inflammatory workup, serologies pending.? 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 Sliding scale insulin, Accu-Cheks a.c. HS, hypoglycemia protocol, A1c 6.4 -heart failure preserved ejection with grade 1 diastolic dysfunction: EF 60-65%, echo Mar 2023. Spironolactone, b-arin, acei, jardiance. lasix held -essential hypertension: Metoprolol, holding lisinopril, hctz -hypothyroidism: Synthroid -on pletal -supplements: d3, acidophilus Diet:??Heart healthy with dietary supplement DVT prophylaxis:?Lovenox Code status:??Full code Disposition:??Home with home health tomorrow after finishing last dose of Merrem Time Spent With Patient Time: 30 minutes Subjective Date/time seen: 05/19/23 12:11 Interval history: Patient seen and examined. She is doing well no new complaints. Last dose of meropenem will be tomorrow morning. She will be discharged home afterwards. She denies fever, chills, nausea, vomiting, diarrhea. It appears her nausea has resolved. family updated bedside. Review of Systems Review of Systems: 10 point ROS complete, negative other than what is specified in HPI. Exam Narrative: - GENERAL:? Pleasant woman in no acute distress. - EYES: EOMI. Anicteric. - HENT: Moist mucous membranes. - LUNGS: Clear to auscultation bilaterally, no wheezing, rhonchi, or rales. - CARDIOVASCULAR: Regular rate and rhythm. No murmur. No JVD. - ABDOMEN: Soft, non-tender and non-distended. No palpable masses. - EXTREMITIES: Peripheral pulses 2+. Non-tender. - NEUROLOGIC: No focal neurological deficits. CN II-XII grossly intact. - PSYCHIATRIC: Awake, Alert and oriented. Appropriate mood and affect. - SKIN: No rashes or lesions. Warm. - LYMPH: No cervical lymphadenopathy. Objective Data Vital Signs Vital Signs: Vital Signs - 24 hr 05/18/23 15:28 05/18/23 16:00 05/18/23 21:32 Temperature 36.7 C 36.5 C Pulse Rate 115 H 108 H 118 H Respiratory Rate 12 18 Blood Pressure 131/54 L 130/52 L Pulse Oximetry 98 93 Oxygen Delivery 05/18/23 20:00 05/18/23 20:00 05/19/23 00:00 Temperature Pulse Rate 92 118 H Respiratory Rate Blood Pressure Pulse Oximetry Oxygen Delivery Room Air 05/19/23 04:00 05/19/23 04:39 05/19/23 09:08 Temperature 36.6 C Pulse Rate 105 H 116 H 116 H Respiratory Rate 20 Blood Pressure 149/67 H Pulse Oximetry 93 Oxygen Delivery 05/19/23
--- NOTE | 2023-05-19 14:55 | P.PNNP_ITS ---
Progress Note: A&P Assessment and Plan (1) Acute kidney injury: Code(s): N17.9 - Acute kidney failure, unspecified Status: Acute Assessment and Plan: * acute kidney injury * presumably due to infection (wounds + UTI) in the context of chronic diuretic therapy (HCTZ + spironolactone) along with XUAN-I use * drug reaction?? 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 * evaluation to date: * urine electrolytes (by FeUrea) are prerenal * urine eosinophils negative * CPK okay * UA c/w with infection * serologies pending * creatinine seems to have stabilized at around 1.2. * She is eating and drinking pretty well. * Continue holding off on IV fluids for now. * Blood pressure is a little bit on the high side. Will resume lisinopril. * Also continue holding the spironolactone, furosemide, and hydrochlorothiazide * Will check labs tomorrow before if she is still here. (2) Stage 3a chronic kidney disease: Code(s): N18.31 - Chronic kidney disease, stage 3a Status: Chronic Assessment and Plan: * baseline creatinine seems to rub around 1.0 - 1.1mg/dl * presumably due to HTN, DM, PVD, diastolic CHF, PHYLICIA and age-related change (3) UTI (urinary tract infection): Qualifiers: Urinary tract infection type: site unspecified Hematuria presence: without hematuria Qualified Code(s): N39.0 - Urinary tract infection, site not specified Code(s): N39.0 - Urinary tract infection, site not specified Status: Acute Assessment and Plan: * admission UA highly suggestive * urine culture with E.coli * on meropenem (4) Stasis ulcer: Qualifiers: Venous stasis ulcer site: calf Laterality: right Code(s): I83.009 - Varicose veins of unspecified lower extremity with ulcer of unspecified site; L97.909 - Non-pressure chronic ulcer of unspecified part of unspecified lower leg with unspecified severity Status: Acute Assessment and Plan: * noted on right posterior calf and dorsal aspect of right foot * wound care following * getting local wound care * on meropenem (5) Diastolic congestive heart failure: Code(s): I50.30 - Unspecified diastolic (congestive) heart failure Status: Acute Assessment and Plan: * appears compensated/euvolemic at this time * was on lasix and spironolactone * consider holding diuretic dosage given #1(?) (6) DM type 2 (diabetes mellitus, type 2): 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 She feels good. She is eager for discharge. Exam Narrative: General: elderly female in NAD Heart: normal S1 and S2; no rub or gallop Lungs: clear Bilaterally Abdomen: soft, nontender, nondistended, positive bowel sounds Extremities: no cyanosis or clubbing; no edema Skin: no rash Objective Data Vital Signs Vital Signs:
--- NOTE | 2023-05-19 14:55 | PM.PNNEP ---
Progress Note: A&P Assessment and Plan (1) Acute kidney injury: Code(s): N17.9 - Acute kidney failure, unspecified Status: Acute Assessment and Plan: acute kidney injury presumably due to infection (wounds + UTI) in the context of chronic diuretic therapy (HCTZ + spironolactone) along with XUAN-I use drug reaction?? 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 evaluation to date: urine electrolytes (by FeUrea) are prerenal urine eosinophils negative CPK okay UA c/w with infection serologies pending creatinine seems to have stabilized at around 1.2. She is eating and drinking pretty well. Continue holding off on IV fluids for now. Blood pressure is a little bit on the high side. Will resume lisinopril. Also continue holding the spironolactone, furosemide, and hydrochlorothiazide Will check labs tomorrow before if she is still here. (2) Stage 3a chronic kidney disease: Code(s): N18.31 - Chronic kidney disease, stage 3a Status: Chronic Assessment and Plan: baseline creatinine seems to rub around 1.0 - 1.1mg/dl presumably due to HTN, DM, PVD, diastolic CHF, PHYLICIA and age-related change (3) UTI (urinary tract infection): Qualifiers: Urinary tract infection type: site unspecified Hematuria presence: without hematuria Qualified Code(s): N39.0 - Urinary tract infection, site not specified Code(s): N39.0 - Urinary tract infection, site not specified Status: Acute Assessment and Plan: admission UA highly suggestive urine culture with E.coli on meropenem (4) Stasis ulcer: Qualifiers: Venous stasis ulcer site: calf Laterality: right Code(s): I83.009 - Varicose veins of unspecified lower extremity with ulcer of unspecified site; L97.909 - Non-pressure chronic ulcer of unspecified part of unspecified lower leg with unspecified severity Status: Acute Assessment and Plan: noted on right posterior calf and dorsal aspect of right foot wound care following getting local wound care on meropenem (5) Diastolic congestive heart failure: Code(s): I50.30 - Unspecified diastolic (congestive) heart failure Status: Acute Assessment and Plan: appears compensated/euvolemic at this time was on lasix and spironolactone consider holding diuretic dosage given #1(?) (6) DM type 2 (diabetes mellitus, type 2): Qualifiers: 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 She feels good. She is eager for discharge. Exam Narrative: General: elderly female in NAD Heart: normal S1 and S2; no rub or gallop Lungs: clear Bilaterally Abdomen: soft, nontender, nondistended, positive bowel sounds Extremities: no cyanosis or clubbing; no edema Skin: no rash Objective Data Vital Signs Vital Signs: Vital Signs - 24 hr 05/18/23 15:28 05/18/23 16:00 05/18/23 21:32 Temperature 98.1 F 97.7 F Pulse Rate 115 H 108 H 118 H Respiratory Rate 12 18 Blood Pressure 131/54 L 130/52 L Pulse Oximetry 98 93 Oxygen Delivery 05/18/23 20:00 05/18/23 20:00 05/19/23 00:00 Temperature Pulse Rate 92 118 H Respiratory Rate Blood Pressure Pulse Oximetry Oxygen Delivery Room Air 05/19/23 04:00 05/19/23 04:39 05/19/23 09:08 Temperature 97.9 F Pulse Rate 105 H 116 H 116 H Respiratory Rate 20
[2023-05-19 17:10] LABS: Glucose Point of Care 106 mg/dl (65-105)
[2023-05-19 21:57] LABS: Glucose Point of Care 145 mg/dl (65-105)
[2023-05-20] VITALS: PULSE 109
[2023-05-20 04:00] VITALS: PULSE 113
[2023-05-20 04:05] VITALS: BP 146/69; PULSE 116; RESP 20; TEMP 36.4; O2SAT 99
[2023-05-20 05:35] LABS: Basophils Absolute Auto 0.1 K/mm3 (0.0-0.1); Basophils Percent Auto 1.1 % (0.2-1.2); Eosinophils Absolute Auto 0.2 K/mm3 (0-0.3); Eosinophils Percent Auto 3.5 % (0-4.4); Hematocrit 34.5 % (37.0-47.0); Hemoglobin 10.8 g/dL (12.0-15.0); Immature Granulocyte Absolute 0.03 K/mm3 (0.00-0.031); Immature Granulocyte Percent A 0.6 % (0-0.5); Lymphocytes Absolute Auto 1.77 K/mm3 (0.9-3.2); Lymphocytes Percent Auto 32.6 % (18.3-44.2); Mean Corpuscular HGB Conc 31.3 g/dl (32-36); Mean Corpuscular Hemoglobin 27.3 pg (26-34); Mean Corpuscular Volume 87.3 fl (80-100); Mean Platelet Volume 10.9 fl (7.4-10.4); Monocytes Absolute Auto 0.7 K/mm3 (0.1-0.6); Monocytes Percent Auto 13.3 % (2.6-8.5); Neutrophils Absolute Auto 2.7 K/mm3 (1.3-6.7); Neutrophils Percent Auto 48.9 % (45.5-73.1); Platelet Count Result 362 k/mm3 (150-375); Red Blood Count 3.95 M/mm3 (4.2-5.4); Red Cell Distribution Width 16.9 % (11.5-14.5); White Blood Count 5.4 K/mm3 (4.5-10.0)
[2023-05-20] MEDS: LEVOTHYROXINE SODIUM 100 MCG TABLET 200 MCG PO (05:46)
[2023-05-20 08:00] VITALS: PULSE 117
[2023-05-20 08:19] VITALS: PULSE 116
[2023-05-20] MEDS: ENOXAPARIN 40 MG/0.4 ML SYRINGE SUB-Q (08:19)
[2023-05-20] MEDS: cilostazoL 100 MG TABLET PO (08:19)
[2023-05-20] MEDS: METOPROLOL SUCCINATE EXT REL 12.5 MG TABCR PO (08:19)
[2023-05-20] MEDS: ACIDOPHILUS/BULGARICUS CHEWABLE TABLET 1 TABLET PO (08:19)
[2023-05-20] MEDS: EMPAGLIFLOZIN 10 MG TABLET PO (08:19)
[2023-05-20] MEDS: MEROPENEM 1 GM/NS 100 ML 1 GM/100 ML BAG IVPB (08:20)
[2023-05-20] MEDS: lisinopriL 10 MG TABLET PO (08:20)
[2023-05-20] MEDS: TOLNAFTATE 1% POWDER 45 GM BTL 1 APPLIC TOPICAL (08:20)
[2023-05-20] MEDS: COLLAGENASE OINT 30 GM TUBE 1 APPLIC TOPICAL (08:20)
[2023-05-20 08:21] LABS: Alanine Aminotransferase 12 U/L (6-35); Albumin Level 3.2 g/dL (3.5-5.1); Alkaline Phosphatase 56 U/L (38-126); Anion Gap 4 mmol/L (8-16); Aspartate Amino Transferase 29 U/L (14-36); Bilirubin,Total 0.3 mg/dL (0.2-1.3); Blood Urea Nitrogen 19 mg/dL (7-17); Calcium 9.7 mg/dL (8.4-10.2); Carbon Dioxide 26 mmol/L (22-30); Chloride 104 mmol/L (98-107); Estimated CRCL calculation 42 ml/min; Estimated Glomerular Filt Rate 48; Glucose 107 mg/dL (65-110); Potassium 4.1 mmol/L (3.4-5.0); Sodium 134 mmol/L (137-145)
[2023-05-20 09:16] LABS: Glucose Point of Care 137 mg/dl (65-105)
--- NOTE | 2023-05-20 10:31 | PM.DS ---
DS: Admitting Diagnosis Discharge Date May 20, 2023 Admitting Diagnosis Altered mental status DS: Discharge Diagnosis Discharge Diagnosis (1) Urinary tract infection due to extended-spectrum beta lactamase (ESBL) producing Escherichia coli: Code(s): N39.0 - Urinary tract infection, site not specified; B96.29 - Other Escherichia coli [E. coli] as the cause of diseases classified elsewhere; Z16.12 - Extended spectrum beta lactamase (ESBL) resistance Status: Acute (2) Acute kidney injury: Code(s): N17.9 - Acute kidney failure, unspecified Status: Acute (3) Stage 3a chronic kidney disease: Code(s): N18.31 - Chronic kidney disease, stage 3a Status: Chronic (4) Altered mental status: Qualifiers: Altered mental status type: unspecified Qualified Code(s): R41.82 - Altered mental status, unspecified Code(s): R41.82 - Altered mental status, unspecified Status: Acute DS: Summary Hospital Course Hospital Course: 78-year-old female with past medical history hypertension, chronic kidney disease stage 3, heart failure preserved ejection fraction, hypertension, hyperlipidemia, hypothyroidism, PHYLICIA on CPAP, peripheral vascular disease, insulin-dependent diabetes mellitus, aortic stenosis. Presents with general weakness and fatigue. Admitted for altered mental status. Treated with meropenem for acute complicated UTI with E coli ESBL. Acute toxic encephalopathy resolving. NELSON also resolved. She was also in the high range heart rate of 90s along with elevated blood pressure so her metoprolol was increased from 12.5 mg to 25 mg extended release q.day. On 05/20/2023 she is back to baseline status and stable for discharge back to home with re-initiation of home health. Patient amenable to this plan and she is advised to follow up with her primary care physician which she agrees to. She was full code during her admission. Time Spent with Patient Time attestation: Total time spent providing and/or coordinating discharge services: Exam Const: General: cooperative and no acute distress Resp: Effort & Inspection: normal respiratory effort Auscultation: clear to auscultation bilaterally Cardio: Rate: regular rate Rhythm: regular rhythm Heart sounds: S1 normal heart sound present and S2 normal heart sound present GI: GI Palp: No abdominal tenderness Auscultation: normal bowel sounds DS: Data Data Completed and Pending Labs on day of discharge: Labs from last 24 hours 05/20/23 05/20/23 05/19/23 09:14 04:48 21:01 WBC 5.4 RBC 3.95 L Hgb 10.8 L Hct 34.5 L MCV 87.3 MCH 27.3 MCHC 31.3 L RDW 16.9 H Plt Count 362 MPV 10.9 H Immature Gran % (Auto) 0.6 H Neut % (Auto) 48.9 Lymph % (Auto) 32.6 [place] % (Auto) 13.3 H Eos % (Auto) 3.5 Baso % (Auto) 1.1 Lymph # (Auto) 1.77 [place] # (Auto) 0.7 H Eos # (Auto) 0.2 Baso # (Auto) 0.1 Abs Immat Gran (auto) 0.03 Absolute Neuts (auto) 2.7 Absolute Nucleated RBC 0.0 Nucleated RBC % 0.0 Sodium 134 L Potassium 4.1 Chloride 104 Carbon Dioxide 26 Anion Gap 4 L BUN 19 H Creatinine 1.10 H Estim Creat Clear Calc 42 Estimated GFR 48 L Glucose 107 POC Capillary Glucose 137 H 145 H Calcium 9.7 Phosphorus 3.0 Total Bilirubin 0.3 AST 29 ALT 12 Alkaline Phosphatase 56 Total Protein 7.0 Albumin 3.2 L 05/19/23 05/19/23 17:07 11:46 WBC RBC Hgb Hct MCV MCH MCHC RDW Plt Count MPV Immature Gran % (Auto) Neut % (Auto) Lymph % (Auto) [place] % (Auto) Eos % (Auto) Baso % (Auto) Lymph # (Auto) [place] # (Auto) Eos # (Auto) Baso # (Auto) Abs Immat Gran (auto) Absolute Neuts (auto) Absolute Nucleated RBC Nucleated RBC % Sodium Potassium Chloride Carbon Dioxide Anion Gap BUN Creatinine Estim Creat Clear Calc Estimated GFR Glucose
[2023-05-20 11:31] LABS: Glucose Point of Care 160 mg/dl (65-105)
[2023-05-20 12:00] VITALS: PULSE 113
[2023-05-21 02:21] LABS: Anti Glomerular Basement Memb <1.0 AI (<1.0)
[2023-05-21 20:12] LABS: Anti Streptolysin O Screen 611 IU/mL (<200)
[2023-05-23 15:19] LABS: ANCA Screen C-ANCA POS (Negative); C-ANCA Titer Reflex Chg Test YES
== END 2023-05-20 13:20 | disposition home health service (06) | DRG 871 ==
LOC: ANHED 10:57 → ANH2MED 13:15
PROVIDERS: Family Medicine; Internal Medicine; Internal Medicine Nephrology; Psychiatry & Neurology Neurology; Student in an Organized Health Care Education/Training Program; Admitting Provider Internal Medicine; Emergency Provider Emergency Medicine; PCP Internal Medicine; Visit Provider General Practice
DX: A41.9 Sepsis, unspecified organism (principal); G93.41 Metabolic encephalopathy; I13.0 Hypertensive heart and chronic kidney disease with heart failure and stage 1 through stage 4 chronic kidney disease, or unspecified chronic kidney disease; I50.32 Chronic diastolic (congestive) heart failure; N17.9 Acute kidney failure, unspecified; N39.0 Urinary tract infection, site not specified; L97.219 Non-pressure chronic ulcer of right calf with unspecified severity; N18.31 Chronic kidney disease, stage 3a; I87.2 Venous insufficiency (chronic) (peripheral); I35.0 Nonrheumatic aortic (valve) stenosis; E78.5 Hyperlipidemia, unspecified; E03.9 Hypothyroidism, unspecified; E11.22 Type 2 diabetes mellitus with diabetic chronic kidney disease; E55.9 Vitamin D deficiency, unspecified; E11.51 Type 2 diabetes mellitus with diabetic peripheral angiopathy without gangrene; B96.20 Unspecified Escherichia coli [E. coli] as the cause of diseases classified elsewhere; M19.90 Unspecified osteoarthritis, unspecified site; R11.2 Nausea with vomiting, unspecified; G47.33 Obstructive sleep apnea (adult) (pediatric); F03.90 Unspecified dementia, unspecified severity, without behavioral disturbance, psychotic disturbance, mood disturbance, and anxiety; Z20.822 Contact with and (suspected) exposure to COVID-19
CPT/HCPCS: 36415; 70450; 71045; 71046; 76775; 80048; 80053; 80061; 81001; 81050; 82306; 82550; 82570; 82607; 82746; 82747; 82948; 83520; 83605; 83735; 84100; 84156; 84300; 84439; 84443; 84480; 84540; 85025; 85610; 85730; 85999; 86036; 86038; 86060; 86160; 86225; 87040; 87077; 87086; 87088; 87186; 87637; 93005; 96365; 96375; 97110; 97161; 97165; 97530; 97535; 99285; A9270; G0378; J1650; J1815; J2185; J2405; J2543; J3475; J7030; J7040

== ENCOUNTER 2023-06-03 12:09 | Outpatient (CLI) | payer MEDICARE, SELFPAY ==
[2023-06-03 13:08] LABS: Alanine Aminotransferase 12 U/L (6-35); Albumin Level 3.9 g/dL (3.5-5.1); Alkaline Phosphatase 70 U/L (38-126); Anion Gap 9 mmol/L (4-12); Aspartate Amino Transferase 25 U/L (14-36); Bilirubin,Total 0.8 mg/dL (0.2-1.3); Blood Urea Nitrogen 31 mg/dL (7-17); Calcium 10.3 mg/dL (8.4-10.2); Carbon Dioxide 24 mmol/L (22-30); Chloride 100 mmol/L (98-107); Estimated Glomerular Filt Rate 29; Glucose 140 mg/dL (65-110); Potassium 4.3 mmol/L (3.4-5.0); Sodium 133 mmol/L (137-145)
[2023-06-03 13:38] LABS: Thyroid Stimulating Hormone < 0.015 uIU/mL (0.465-4.680)
[2023-06-03 13:44] LABS: Free T4 Free Thyroxine 2.83 ng/mL (0.78-2.19)
== END 2023-06-03 12:10 | disposition home or self-care (01) ==
LOC: ANHLAB 12:12
PROVIDERS: PCP Internal Medicine; Visit Provider Internal Medicine
DX: E03.9 Hypothyroidism, unspecified (principal); Z79.899 Other long term (current) drug therapy; N39.0 Urinary tract infection, site not specified; B96.29 Other Escherichia coli [E. coli] as the cause of diseases classified elsewhere; Z16.12 Extended spectrum beta lactamase (ESBL) resistance; N17.9 Acute kidney failure, unspecified; N18.31 Chronic kidney disease, stage 3a
CPT/HCPCS: 36415; 80053; 84439; 84443

== ENCOUNTER 2023-06-13 11:58 | Inpatient (IN) | payer MEDICARE, SELFPAY ==
[2023-06-13] VITALS (16 sets, daily range): BP systolic 109–150; BP diastolic 53–99; PULSE 78–115; RESP 13–21; TEMP 36.4–36.7; O2SAT 95–100
--- NOTE | ~2023-06-13 | US_ITS ---
EXAMINATION: US venous doppler LE RT DATE: 06/13/2023 14:57 INDICATION: Right lower limb swelling. TECHNIQUE: Grayscale ultrasound images without and with compression and Doppler ultrasound images of the right lower extremity veins were obtained. COMPARISON: None. FINDINGS: The visualized portions of right common femoral vein, profunda (deep) femoral vein, femoral vein, pop liteal vein, and greater saphenous vein outflow are patent. The calf veins are not well evaluated. IMPRESSION: 1. No deep venous thrombosis. Reviewed, dictated and finalized at location A.
--- NOTE | ~2023-06-13 | CT_ITS ---
EXAMINATION: CT abdomen pelvis wo con DATE: 06/13/2023 14:46 INDICATION: Urinary tract infection TECHNIQUE: Computed tomography (CT) of the abdomen and pelvis was performed without intravenous contr ast. Automated exposure control and iterative reconstruction technique were employed. The dose-length product was 1415.66 mGy-cm. COMPARISON: 04/03/2023 FINDINGS: Mild peripheral irregular septal line thickening which could be due to atelectasis, mild pulmonary ed suzanna or chronic interstitial lung disease. Heart size is normal. Atherosclerotic coronary artery calci fic lesion. Aortic valve calcification. No pericardial or pleural effusion. Small sliding-type hiatal hernia. Cholecystectomy clips at the gallbladder fossa. The spleen, pancreas, bilateral adrenal glan ds and kidneys are normal. No urolithiasis. Bladder, uterus and bilateral adnexa are unremarkable. Th ere is fluid in the proximal colon consistent with nonspecific diarrhea. No bowel obstruction. The ap pendix is not visualized. No pericecal inflammatory change to suggest acute appendicitis. No free int raperitoneal gas or fluid. No pathologically enlarged abdominal or pelvic lymphadenopathy. Severe lum bar spondylosis. There are bridging osteophytes at multiple levels in the thoracic spine consistent w ith diffuse idiopathic skeletal hyperostosis (DISH). IMPRESSION: 1. No acute intra-abdominal/pelvic process. 2. Small sliding-type hiatal hernia. Reviewed, dictated and finalized at location A.
--- NOTE | ~2023-06-13 | US_ITS ---
EXAMINATION: US renal BI DATE: 06/14/2023 16:14 INDICATION: NELSON TECHNIQUE: Multiple grayscale and Doppler ultrasound images of the kidneys were obtained. COMPARISON: CT abdomen pelvis 06/13/2023 FINDINGS: The right kidney measures 9.2 x 4.5 x 4.1 cm. The left kidney measures 9.5 x 4.7 x 4.4 cm. The kidney s demonstrate normal parenchymal echogenicity. There is no hydronephrosis. The bladder is empty and t herefore not well evaluated. Echogenic hepatic parenchyma. IMPRESSION: Unremarkable renal sonogram findings. Echogenic liver, most commonly due to steatosis but also can be seen with hepatitis and fibrosis Reviewed, dictated and finalized at location K. IMPRESSION: Unremarkable renal sonogram findings. Echogenic liver, most commonly due to steatosis but also can be seen with hepat itis and fibrosis
--- NOTE | ~2023-06-13 | CT_ITS ---
EXAMINATION: CT brain wo con DATE: 06/13/2023 14:46 INDICATION: Altered mental state TECHNIQUE: Computed tomography (CT) of the head was performed without intravenous contrast. The mA wa s adjusted according to patient size. Iterative reconstruction technique was employed. Exam dose: 60 5.33 mGy-cm total exam DLP. COMPARISON: 05/13/2023 CT brain FINDINGS: Bilateral vertebral artery, basilar artery and bilateral carotid siphon internal carotid ar wade and middle cerebral artery calcifications. There is nonspecific diminished attenuation cerebral white matter, likely due to chronic small vessel ischemic changes. No intracranial mass lesion or hemorrhage or cerebrovascular accident, midline shift or mass effect i s evident. There is prominence of the ventricles without apparent obstruction. 05/13/2023 CT brain history was gai t dysfunction on the current indication is altered mental status. Considering the prominent ventricle s and the history of altered mental status and gait dysfunction, consider communicating hydrocephalus . No intracranial mass lesion or hemorrhage, midline shift or mass effect. No subdural or epidural hematoma. No orbital mass lesion. The mastoid air cells and paranasal sinuses are normally developed and aerated. No fracture or bone destruction of the cranial vault. IMPRESSION: Given the history of gait disturbance, altered mental status and dilated ventricles, com municating hydrocephalus should be considered Cerebral atherosclerosis and chronic small vessel ischemic changes of the cerebral white matter Reviewed, dictated and finalized at Location A. Reviewed, dictated and finalized at location B. IMPRESSION: Given the history of gait disturbance, altered mental status and d ilated ventricles, communicating hydrocephalus should be considered Cerebral atherosclerosis and chronic small vessel ischemic changes of the cereb ral white matter
--- NOTE | 2023-06-13 12:10 | ECG_ITS ---
Measurements Intervals [place] Rate: 113 P: 40 NH: 168 QRS: -30 QRSD: 106 T: 91 QT: 342 QTc: 471 Interpretive Statements SINUS TACHYCARDIA BORDERLINE LEFT AXIS DEVIATION [QRS AXIS < -20] POOR R-WAVE PROGRESSION ABNORMAL ECG COMPARED TO ECG 05/18/2023 10:45:01 NO SIGNIFICANT CHANGES Electronically Signed On 06-13-2023 12:39:41 CDT by Ede Joy M.D.
[2023-06-13 12:36] LABS: Basophils Absolute Auto 0.1 K/mm3 (0.0-0.1); Basophils Percent Auto 0.9 % (0.2-1.2); Eosinophils Absolute Auto 0.1 K/mm3 (0-0.3); Eosinophils Percent Auto 0.7 % (0-4.4); Hematocrit 39.8 % (37.0-47.0); Hemoglobin 12.6 g/dL (12.0-15.0); Immature Granulocyte Absolute 0.03 K/mm3 (0.00-0.031); Immature Granulocyte Percent A 0.3 % (0-0.5); Lymphocytes Absolute Auto 2.33 K/mm3 (0.9-3.2); Lymphocytes Percent Auto 25.7 % (18.3-44.2); Mean Corpuscular HGB Conc 31.7 g/dl (32-36); Mean Corpuscular Hemoglobin 26.5 pg (26-34); Mean Corpuscular Volume 83.8 fl (80-100); Mean Platelet Volume 11.1 fl (7.4-10.4); Monocytes Absolute Auto 0.9 K/mm3 (0.1-0.6); Monocytes Percent Auto 9.8 % (2.6-8.5); Neutrophils Absolute Auto 5.7 K/mm3 (1.3-6.7); Neutrophils Percent Auto 62.6 % (45.5-73.1); Platelet Count Result 453 k/mm3 (150-375); Red Blood Count 4.75 M/mm3 (4.2-5.4); Red Cell Distribution Width 16.5 % (11.5-14.5); White Blood Count 9.1 K/mm3 (4.5-10.0)
[2023-06-13 12:42] LABS: INR 1.2; Prothrombin Time 15.4 Seconds (11.1-14.7)
[2023-06-13 12:43] LABS: Partial Thromboplastin Time 28.6 Seconds (22.3-36.8)
[2023-06-13 12:45] LABS: Alanine Aminotransferase 12 U/L (6-35); Albumin Level 4.1 g/dL (3.5-5.1); Alkaline Phosphatase 69 U/L (38-126); Anion Gap 10 mmol/L (4-12); Aspartate Amino Transferase 30 U/L (14-36); Bilirubin,Total 0.5 mg/dL (0.2-1.3); Blood Urea Nitrogen 42 mg/dL (7-17); Calcium 10.4 mg/dL (8.4-10.2); Carbon Dioxide 20 mmol/L (22-30); Chloride 102 mmol/L (98-107); Estimated CRCL calculation 17 ml/min; Estimated Glomerular Filt Rate 16; Glucose 137 mg/dL (65-110); Potassium 5.1 mmol/L (3.4-5.0); Sodium 132 mmol/L (137-145)
[2023-06-13 13:06] LABS: Bacteria Urine 4+ /hpf; Budding Yeast Urine Present /hpf; Non Pathogenic Casts >20; RBC Urine 21-50 /hpf (0-2); Squamous Epithelial Cell Urine Many /hpf (Few); WBC Clumps Urine Present /HPF; WBC Urine >100 /hpf (0-3)
[2023-06-13 13:12] LABS: Appearance Urine Turbid (Clear); Bilirubin Urine Negative (Negative); Blood Urine 2+ (Negative); Color Urine Yellow (Yellow); Glucose Urine UA 1+ mg/dL (Negative); Ketones Urine Trace mg/dL (Negative); Leukocyte Esterase Ur 3+ LEU/UL (Negative); Nitrate Urine Positive (Negative); Protein Urine Trace mg/dL (Negative); Specific Grav Ur 1.014 (1.001-1.035); Urobilinogen Urine 0.2 mg/dL (<2.0)
[2023-06-13 13:15] LABS: Add Urine Microscopic? YES
--- NOTE | 2023-06-13 14:32 | ED_ITS ---
HPI - Altered Mental Status General Chief Complaint: Altered Mental Status Stated Complaint: AMS Time Seen by Provider: 06/13/23 13:49 History of Present Illness HPI narrative: 78-year-old female presented emergency department for evaluation of decreased p.o. intake, altered mental status and increased generalized weakness. Patient does have a prior history of UTI leading to sepsis. Patient has been worsening over the course of the last week. Initially patient called EMS for Friday and patient declined transportation at that point. Today patient is tearful upon arrival to the emergency department. Related Data Home Medications Medication Instructions Recorded Confirmed cholecalciferol (vitamin D3) 50 50 mcg PO DAILY 05/29/23 06/13/23 mcg (2,000 unit) capsule furosemide 40 mg tablet 60 mg PO QAM 05/29/23 06/13/23 miconazole nitrate 2 % topical 1 applic topical DAILY 05/29/23 06/13/23 ointment (Critic-Aid Clear AF (miconazole)) nystatin 100,000 unit/gram topical 1 applic topical DAILY 05/29/23 06/13/23 powder dapagliflozin propanediol 5 mg mg 06/13/23 tablet (Farxiga) potassium chloride 20 mEq oral 20 meq PO DAILY 06/13/23 06/13/23 packet (Klor-Con) tramadol 50 mg tablet 50 mg PO QID PRN Pain 06/13/23 06/13/23 Allergies Allergy/AdvReac Type Severity Reaction Status Date / Time Influenza Virus Vaccines Allergy Unknown Anaphylaxis Verified 06/03/23 11:10 Sulfa (Sulfonamide AdvReac Intermediate Rash Verified 06/03/23 11:10 Antibiotics) 1 GENERAL ANESTHISIA LAST Allergy Unknown Other Uncoded 06/03/23 11:10 2 SURGS Review of Systems Review of Systems: All systems reviewed & are unremarkable except as noted in HPI and below PMFSH Past Medical History Medical History (Updated 06/14/23 @ 00:47 by Kristine Muñoz MD) Aortic stenosis Benign essential hypertension BMI 38.0-38.9,adult Body mass index (BMI) 45.0-49.9, adult Chronic kidney disease, stage 3 Degenerative joint disease Diastolic congestive heart failure Essential hypertension Hyperlipidemia Hypothyroidism (acquired) Murmur, heart Nausea and vomiting in adult PHYLICIA on CPAP Peripheral vascular disease Tachycardia Type 2 diabetes mellitus Vitamin D deficiency Surgical History Surgical History History of bladder repair surgery For bladder prolapse. Family History Family History Mother Hypertension, Onset Age: 70 Cerebrovascular accident Patient's mother is Sibling Carcinoma of colon Other Family history of arthritis Family history of coronary artery disease Social History Social History Social History: Surrogate medical decision maker: Dago North, spouse. Code status: Full code. Smoking status: Never smoker Second hand tobacco smoke exposure: No Alcohol intake: never Substance use: never Substance use type: does not use Do You Feel Safe in your Home?: Yes Lack of Transportation: No Lack of Food: Never True Current Housing: I Have Housing Concerned About Future Housing: No Difficulty Paying Gas/Electric Bills: No Difficulty Paying for Meds: No Currently Unemployed: No Education: Trade/Vocational Certificate Difficulty w/ Childcare or Family Care: No Additional living arrangements comments: Lives with spouse in [place]. Spiritual care concerns: No Exam Narrative: APPEARANCE: Ill-appearing HEAD: normocephalic, atraumatic. EYES: PERRLA/EOMI, conjunctivae clear. NOSE: Normal no drainage EARS:TMS clear with good light reflex. THROAT: Pharynx clear, no exudate. NECK: Supple. No adenopathy, no masses. RESPIRATORY: Airway patent, respirations nonlabored. Clear to auscultation bilaterally, no rales, rhonchi, wheezing. CARDIOVASCULAR: Regular rate and rhythm without murmurs rubs or gallops. ABDOMINAL: Soft, nontender, nondistended, normal bowel sounds MUSCULOSKELETAL: Moves all extremities. Strength/ROM intact, No edema, No calf tenderness. NEURO: Alert. Cranial nerves II through XII intact. Grossly intact SKIN: Warm, dry. Normal Color Course Course Emergency Course: Patient was admitted for UTI Vital Signs Vital signs: Vital Signs Temperature 97.6 F 06/13/23 11:53 Pulse Rate 114 H 06/13/23 11:53 Respiratory Rate 13 06/13/23 11:53 Blood Pressure 121/63 06/13/23 11:53 Pulse Oximetry 99 06/13/23 11:53 Oxygen Delivery Room Air 06/13/23 11:53 Temperature 98.2 F 04/06/24 05:47 Pulse Rate 95 06/14/23 05:47 Respiratory Rate 20 06/14/23 05:47 Blood Pressure 115/61 06/14/23 05:47 Pulse Oximetry 99 06/14/23 05:47 Oxygen Delivery Room Air 06/13/23 23:26 MDM - Altered Mental Status MDM Narrative Medical decision making narrative: 78-year-old female presenting to the emergency department for evaluation of altered mental status. Patient is afebrile with no leukocytosis and a stable hemoglobin at 12.6, patient does have NELSON with creatinine of 2.8 and elevated potassium of 5.[address] findings with Neurology and they recommended discussing with Neurosurgery. Dr Jeter with Neurosurgery did not feel this was an acute finding that needed to be addressed is inpatient and should not be addressed while the patient has a concurrent urinary tract infection. They recommended admitting the patient here treating the urinary tract infection and then the patient can have outpatient follow-up with Dr. Roger. Patient family are updated on the results of the workup plan for admission. Patient was started on meropenem for the urinary tract infection. Differential Diagnosis Differential diagnosis: Likely altered mental status, delirium, dementia, subarachnoid hemorrhage and sepsis Lab Data Attestation: I reviewed the patient's lab results. 06/13/23 12:23 06/13/23 16:44 Labs: Lab Results 06/13/23 06/13/23 06/13/23 Range/Units 12:23 12:43 16:44 WBC 9.1 (4.5-10.0) K/mm3 RBC 4.75 (4.2-5.4) M/mm3 Hgb 12.6 (12.0-15.0) g/dL Hct 39.8 (37.0-47.0) % MCV 83.8 (80-100) fl MCH 26.5 (26-34) pg MCHC 31.7 L (32-36) g/dl RDW 16.5 H (11.5-14.5) % Plt Count 453 H (150-375) k/mm3 MPV 11.1 H (7.4-10.4) fl Immature Gran % (Auto) 0.3 (0-0.5) % Neut % (Auto) 62.6 (45.5-73.1) % Lymph % (Auto) 25.7 (18.3-44.2) % [place] % (Auto) 9.8 H (2.6-8.5) % Eos % (Auto) 0.7 (0-4.4) % Baso % (Auto) 0.9 (0.2-1.2) % Lymph # (Auto) 2.33 (0.9-3.2) K/mm3 [place] # (Auto) 0.9 H (0.1-0.6) K/mm3 Eos # (Auto) 0.1 (0-0.3) K/mm3 Baso # (Auto) 0.1 (0.0-0.1) K/mm3 Abs Immat Gran (auto) 0.03 (0.00-0.031) K/mm3 Absolute Neuts (auto) 5.7 (1.3-6.7) K/mm3 Absolute Nucleated RBC 0.000 (0.0-0.012) K/mm3 Nucleated RBC % 0.0 (0.0-0.2) % PT 15.4 H (11.1-14.7) Seconds INR 1.2 APTT 28.6 (22.3-36.8) Seconds Sodium 132 L 134 L (137-145) mmol/L Potassium 5.1 H 4.6 (3.4-5.0) mmol/L Chloride 102 101 (98-107) mmol/L Carbon Dioxide 20 L 22 (22-30) mmol/L Anion Gap 10 11 (4-12) mmol/L BUN 42 H D 42 H (7-17) mg/dL Creatinine 2.80 H 2.70 H (0.7-1.0) mg/dL Estim Creat Clear Calc 17 17 ml/min Estimated GFR 16 L 17 L (59 - ) Glucose 137 H 120 H (65-110) mg/dL Calcium 10.4 H 10.3 H (8.4-10.2) mg/dL Total Bilirubin 0.5 (0.2-1.3) mg/dL AST 30 (14-36) U/L ALT 12 (6-35) U/L Alkaline Phosphatase 69 (38-126) U/L Total Protein 8.0 (6.3-8.2) g/dL Albumin 4.1 (3.5-5.1) g/dL Urine Color Yellow (Yellow) Urine Appearance Turbid H (Clear) Urine pH 5.0 (5.0-9.0) Ur Specific [place] 1.014 (1.001-1.035) Urine Protein Trace (Negative) mg/dL Urine Glucose (UA) 1+ H (Negative) mg/dL Urine Ketones Trace H (Negative) mg/dL Ur Blood (Man) 2+ H (Negative) Urine Nitrate Positive H (Negative) Urine Bilirubin Negative (Negative) Urine Urobilinogen 0.2 (<2.0) mg/dL Leukocyte Esterase Rfl 3+ H (Negative) CARLOS EDUARDO/UL Urine RBC 21-50 H (0-2) /hpf Urine WBC >100 H (0-3) /hpf Urine WBC Clumps Present H (None) /HPF Ur Squamous Epith Cells Many H (Few) /hpf Urine Bacteria 4+ H /hpf Urine Casts >20 Urine Yeast (Budding) Present H (None) /hpf Urine Characteristics Cloudy Imaging Data Radiologist's impression: Impressions Head CT 06/13/23 14:55 IMPRESSION: Given the history of gait disturbance, altered mental status and dilated ventricles, communicating hydrocephalus should be considered Cerebral atherosclerosis and chronic small vessel ischemic changes of the cerebral white matter Venous Doppler Study 06/13/23 14:59 IMPRESSION: 1. No deep venous thrombosis. Abdomen/Pelvis CT 06/13/23 15:00 IMPRESSION: 1. No acute intra-abdominal/pelvic process. 2. Small sliding-type hiatal hernia. Discharge Plan Discharge Clinical Impression: NELSON (acute kidney injury), AMS (altered mental status), Acute UTI, Acute hyperkalemia Patient Disposition: Still a Patient Condition: Serious
[2023-06-13] MEDS: ALBUTEROL SULFATE NEB 2.5 MG/3 ML INH INHALATION (15:00)
[2023-06-13] MEDS: FUROSEMIDE INJ 40 MG/4 ML VIAL 20 MG IV PUSH (15:23)
[2023-06-13] MEDS: SODIUM BICARBONATE 8.4% 50 MEQ/50 ML SYRINGE IV PUSH (15:23)
[2023-06-13] MEDS: SODIUM CHLORIDE 0.9% IV 1,000 ML 999 ML IV CONT (15:23)
[2023-06-13] MEDS: MEROPENEM 500 MG in SODIUM CHLORIDE 0.9% IV 100 ML 200 ML IVPB (15:23)
[2023-06-13] MEDS: SODIUM BICARBONATE 8.4% 50 MEQ/50 ML SYRINGE (15:38)
--- NOTE | 2023-06-13 15:41 | PC.NURSE ---
when going to administer sodium bicarb, the glass vial fell on the ground and broke. wasted this medication and pulled a new vial
[2023-06-13 17:09] LABS: Anion Gap 11 mmol/L (4-12); Blood Urea Nitrogen 42 mg/dL (7-17); Calcium 10.3 mg/dL (8.4-10.2); Carbon Dioxide 22 mmol/L (22-30); Chloride 101 mmol/L (98-107); Estimated CRCL calculation 17 ml/min; Estimated Glomerular Filt Rate 17; Glucose 120 mg/dL (65-110); Potassium 4.6 mmol/L (3.4-5.0); Sodium 134 mmol/L (137-145)
--- NOTE | 2023-06-13 18:00 | ADMGEN ---
This patient, Racheal North, was admitted to Medical Room 347-. Patient/family oriented to hospital policies and general routines including ID bracelet, bed and alarms, visiting hours, pain management, procedures, bathroom and other care routines, personal items, smoking policy, room service/diet, and visiting hours. Information on how to activate the Rapid Response Team has been discussed. Patient/Family are encouraged to report perceived risks to care and to ask questions if they do not understand what they are told or what they should do.
--- NOTE | 2023-06-13 20:17 | P.HP_ITS ---
H&P: HPI History of Present Illness Date/Time: 06/13/23 20:17 Chief Complaint: GENERALIZED WEAKNESS Narrative: THIS IS A 78-YEAR-OLD FEMALE WITH PAST MEDICAL HISTORY SIGNIFICANT FOR CHRONIC KIDNEY DISEASE, TYPE 2 DIABETES MELLITUS, HYPERTENSION, DJD, DIASTOLIC HEART FAILURE, OBSTRUCTIVE SLEEP APNEA ON CPAP. PATIENT PRESENTS FOR A 2ND TIME TO THE EMERGENCY ROOM DUE TO DECREASED PER ORALLY INTAKE AND GENERALIZED WEAKNESS, TEARFUL UPON ARRIVAL. PRELIMINARY WORKUP WAS SIGNIFICANT FOR URINALYSIS WITH NUMEROUS WBCS PRESENT, CHEMISTRY PANEL SHOWED A CREATININE OF 2.8 BUN 42, SODIUM 132 POTASSIUM 5.1 AT THE TIME OF MY VISIT I WAS UNABLE TO GET ANY HISTORY FROM PATIENT REPEATED QUESTIONS BACK TO ME WHEN ASKED IF SHE WAS AT A HOSPITAL OR A JEW SHE SAID NEITHER. PATIENT IS BEEN ADMITTED FOR FURTHER EVALUATION MANAGEMENT AND TREATMENT. EXAMINATION: CT brain wo con DATE: 06/13/2023 14:46 INDICATION: Altered mental state TECHNIQUE: Computed tomography (CT) of the head was performed without intravenous contrast. The mA was adjusted according to patient size. Iterative reconstruction technique was employed. Exam dose:? 605.33 mGy-cm total exam DLP.? COMPARISON: 05/13/2023 CT brain FINDINGS: Bilateral vertebral artery, basilar artery and bilateral carotid siphon internal carotid artery and middle cerebral artery calcifications. There is nonspecific diminished attenuation cerebral white matter, likely due to chronic small vessel ischemic changes. No intracranial mass lesion or hemorrhage or cerebrovascular accident, midline shift or mass effect is evident. There is prominence of the ventricles without apparent obstruction. 05/13/2023 CT brain history was gait dysfunction on the current indication is altered mental status. Considering the prominent ventricles and the history of altered mental status and gait dysfunction, consider communicating hydrocephalus. No intracranial mass lesion or hemorrhage, midline shift or mass effect. No subdural or epidural hematoma. No orbital mass lesion. The mastoid air cells and paranasal sinuses are normally developed and aerated. No fracture or bone destruction of the cranial vault. IMPRESSION:? Given the history of gait disturbance, altered mental status and dilated ventricles, communicating hydrocephalus should be considered Cerebral atherosclerosis and chronic small vessel ischemic changes of the cerebral white matter EXAMINATION: US venous doppler LE RT DATE: 06/13/2023 14:57 INDICATION: Right lower limb swelling. TECHNIQUE: Grayscale ultrasound images without and with compression and Doppler ultrasound images of the right lower extremity veins were obtained. COMPARISON: None. FINDINGS: The visualized portions of right common femoral vein, profunda (deep) femoral vein, femoral vein, popliteal vein, and greater saphenous vein outflow are patent. The calf veins are not well evaluated. IMPRESSION: 1.? No deep venous thrombosis. EXAMINATION: CT abdomen pelvis wo con DATE: 06/13/2023 14:46 INDICATION: Urinary tract infection TECHNIQUE: Computed tomography (CT) of the abdomen and pelvis was performed without intravenous contrast. Automated exposure control and iterative reconstr uction technique were employed. The dose-length product was 1415.66 mGy-cm. COMPARISON: 04/03/2023 FINDINGS: Mild peripheral irregular septal line thickening which could be due to atelectasis, mild pulmonary edema or chronic interstitial lung disease. Heart size is normal. Atherosclerotic coronary artery calcific lesion. Aortic valve calcification. No pericardial or pleural effusion. Small sliding-type hiatal hernia. Cholecystectomy clips at the gallbladder fossa. The spleen, pancreas, bilateral adrenal glands and kidneys are normal. No urolithiasis. Bladder, uterus and bilateral adnexa are unremarkable. There is fluid in the proximal colon consistent with nonspecific diarrhea. No bowel obstruction. The appendix is not visualized. No pericecal inflammatory change to suggest acute appendic itis. No free intraperitoneal gas or fluid. No pathologically enlarged abdominal or pelvic lymphadenopathy. Severe lumbar spondylosis. There are bridging osteophytes at multiple levels in the thoracic spine consistent with diffuse idiopathic skeletal hyperostosis (DISH). IMPRESSION: 1. No acute intra-abdominal/pelvic process. 2. Small sliding-type hiatal hernia. Review of Systems Review of Systems: ROS unobtainable: Yes unobtainable due to mental status ( CONFUSED) [facility] Past Medical History Medical History (Updated 06/14/23 @ 00:47 by Kristine Muñoz MD) Aortic stenosis Benign essential hypertension BMI 38.0-38.9,adult Body mass index (BMI) 45.0-49.9, adult Chronic kidney disease, stage 3 Degenerative joint disease Diastolic congestive heart failure Essential hypertension Hyperlipidemia Hypothyroidism (acquired) Murmur, heart Nausea and vomiting in adult PHYLICIA on CPAP Peripheral vascular disease Tachycardia Type 2 diabetes mellitus Vitamin D deficiency Surgical History Surgical History History of bladder repair surgery For bladder prolapse. Family History Family History Mother Hypertension, Onset Age: 70 Cerebrovascular accident Patient's mother is Sibling Carcinoma of colon Other Family history of arthritis Family history of coronary artery disease Social History Social History Social History: Surrogate medical decision maker: Dago North, spouse. Code status: Full code. Smoking status: Never smoker Second hand tobacco smoke exposure: No Alcohol intake: never Substance use: never Substance use type: does not use Do You Feel Safe in your Home?: Yes Lack of Transportation: No Lack of Food: Never True Current Housing: I Have Housing Concerned About Future Housing: No Difficulty Paying Gas/Electric Bills: No Difficulty Paying for Meds: No Currently Unemployed: No Education: Trade/Vocational Certificate Difficulty w/ Childcare or Family Care: No Additional living arrangements comments: Lives with spouse in [place]. Spiritual care concerns: No Meds Home Medications and Allergies Home Medications Medication Instructions Recorded Confirmed Type dapagliflozin propanediol 5 mg 5 mg PO DAILY #30 tabs 01/28/23 06/13/23 Rx tablet (Farxiga) Lactobacillus acidophilus 10 10,000 mmu cells PO DAILY #10 caps 04/08/23 06/13/23 Rx billion cell capsule (Probiotic) cilostazol 100 mg tablet 100 mg PO BID #180 tabs 04/29/23 06/13/23 Rx cholecalciferol (vitamin D3) 50 50 mcg PO DAILY 05/29/23 06/13/23 History mcg (2,000 unit) capsule furosemide 40 mg tablet 60 mg PO QAM 05/29/23 06/13/23 History miconazole nitrate 2 % topical 1 applic topical DAILY 05/29/23 06/13/23 History ointment (Critic-Aid Clear AF (miconazole)) nystatin 100,000 unit/gram topical 1 applic topical DAILY 05/29/23 06/13/23 History powder collagenase clostridium histo. 250 1 applic topical DAILY #90 grams 06/03/23 06/13/23 Rx unit/gram topical ointment (Santyl) levothyroxine 150 mcg tablet 150 mcg PO DAILY #30 tabs 06/03/23 06/13/23 Rx lisinopril 20 mg tablet 20 mg PO DAILY #90 tabs 06/03/23 06/13/23 Rx metoprolol succinate 25 mg capsule 37.5 mg PO DAILY #45 ea 06/03/23 06/13/23 Rx sprinkle, ext. release 24 hr spironolactone 25 mg tablet 25 mg PO DAILY #30 tabs 06/09/23 06/13/23 Rx (Aldactone) dapagliflozin propanediol 5 mg mg 06/13/23 History tablet (Farxiga) ondansetron 8 mg disintegrating 8 mg PO Q8H PRN nausea and 06/13/23 06/13/23 Rx tablet vomiting #30 tabs potassium chloride 20 mEq oral 20 meq PO DAILY 06/13/23 06/13/23 History packet (Klor-Con) tramadol 50 mg tablet 50 mg PO QID PRN Pain 06/13/23 06/13/23 History Allergies Allergy/AdvReac Type Severity Reaction Status Date / Time Influenza Virus Vaccines Allergy Unknown Anaphylaxis Verified 06/03/23 11:10 Sulfa (Sulfonamide AdvReac Intermediate Rash Verified 06/03/23 11:10 Antibiotics) 1 GENERAL ANESTHISIA LAST Allergy Unknown Other Uncoded 06/03/23 11:10 2 SURGS Vital Signs Vital Signs - 24 hr 06/13/23 11:53 06/13/23 11:53 06/13/23 12:10 Temperature 97.6 F Pulse Rate 114 H 115 H Respiratory Rate 13 Blood Pressure 121/63 Pulse Oximetry 99 99 Oxygen Delivery Room Air Room Air 06/13/23 12:29 06/13/23 12:32 06/13/23 13:02 Temperature Pulse Rate 111 H 106 H 107 H Respiratory Rate 17 16 17 Blood Pressure 112/68 126/67 142/71 H Pulse Oximetry 99 99 Oxygen Delivery 06/13/23 13:17 06/13/23 13:32 06/13/23 13:48 Temperature Pulse Rate 110 H 111 H 86 Respiratory Rate 15 18 13 Blood Pressure 119/65 128/77 150/75 H Pulse Oximetry 95 Oxygen Delivery 06/13/23 15:00 06/13/23 15:10 06/13/23 15:40 Temperature Pulse Rate 107 H 112 H 99 Respiratory Rate 18 18 18 Blood Pressure 129/86 Pulse Oximetry 97 Oxygen Delivery 06/13/23 15:00 06/13/23 16:31 06/13/23 16:45 Temperature Pulse Rate 112 H 113 H 114 H Respiratory Rate 19 20 21 H Blood Pressure 109/53 L 109/74 Pulse Oximetry 100 96 96 Oxygen Delivery 06/13/23 18:30 06/13/23 18:50 Temperature 97.6 F Pulse Rate 78 Respiratory Rate 17 Blood Pressure 141/99 H Pulse Oximetry 99 Oxygen Delivery Room Air Exam Narrative: LAYING IN BED Const: General: cooperative, comfortable, no acute distress, well developed, alert, awake, obese and other ( CONFUSED) Nutritional Appearance: average body habitus Orientation/consciousness: oriented to person HENMT: Head: normal to inspection, normocephalic and atraumatic Ears: hearing grossly normal bilaterally Face/Nose/Sinus: normal facial exam Face and sinus: normal facial exam Eyes: General: appearance normal, both eyes and all related structures Pupils: Equal, round and reactive pupils present EOM: EOMs intact bilaterally Neck: Neck: full ROM, no lymphadenopathy and no JVD Thyroid: thyroid normal Lymphatic: no lymphadenopathy noted Resp: Effort & Inspection: normal respiratory effort and able to speak in complete sentences Auscultation: clear to auscultation bilaterally Cardio: Jugular venous distension: no JVD Rate: regular rate Rhythm: regular rhythm Heart sounds: S1 normal heart sound present, S2 normal heart sound present and Murmur heart sound present systolic GI: Inspection: obesity and no visible herniation GI Palp: Yes Soft to palpation and Yes No hepatosplenomegaly present : General: Yes deferred Skin: Rashes: rashes noted left distal lower leg borders irregular and color red Other: BILATERAL LOWER EXTREMITY CHRONIC SKIN CHANGES DISCOLORATION HYPERKERATOTIC NEEDS STATION DRESSING IN THE RIGHT LOWER EXTREMITY IN PLACE Neuro: General: oriented to person, CN's II-XI intact bilaterally, Unable to assess gait and other ( PATIENT DOES NOT WALK) Cranial nerves: Yes CN's II- XII intact bilaterally and Yes Equal, round and reactive pupils present Cognition (Neuro): normal cognition Speech: normal speech Gait exam (Neuro): Normal gait present Motor exam (neuro): 5/5 motor strength present throughout Extrem: General: edema bilateral Other: RIGHT LOWER EXTREMITY DRESSING IN PLACE H&P: Results Labs Labs: Short CBC 06/13/23 Range/Units 12:23 WBC 9.1 (4.5-10.0) K/mm3 Hgb 12.6 (12.0-15.0) g/dL Hct 39.8 (37.0-47.0) % Plt Count 453 H (150-375) k/mm3 BMP 06/13/23 06/13/23 12:23 16:44 Sodium 132 L 134 L Potassium 5.1 H 4.6 Chloride 102 101 Carbon Dioxide 20 L 22 BUN 42 H D 42 H Creatinine 2.80 H 2.70 H Glucose 137 H 120 H Calcium 10.4 H 10.3 H Liver Function 06/13/23 Range/Units 12:23 Total Bilirubin 0.5 (0.2-1.3) mg/dL AST 30 (14-36) U/L ALT 12 (6-35) U/L Alkaline Phosphatase 69 (38-126) U/L Albumin 4.1 (3.5-5.1) g/dL Urine 06/13/23 Range/Units 12:43 Urine Color Yellow (Yellow) Urine Appearance Turbid H (Clear) Urine pH 5.0 (5.0-9.0) Ur Specific [place] 1.014 (1.001-1.035) Urine Protein Trace (Negative) mg/dL Urine Glucose (UA) 1+ H (Negative) mg/dL Assessment and Plan Assessment and plan (1) UTI (urinary tract infection): Qualifiers: Urinary tract infection type: site unspecified Hematuria presence: without hematuria Qualified Code(s): N39.0 - Urinary tract infection, site not specified Code(s): N39.0 - Urinary tract infection, site not specified Status: Acute Assessment and Plan: ADMIT TO REGULAR MEDICAL FLOOR PATIENT STARTED ON MERREM AWAIT CULTURES (2) Altered mental status: Qualifiers: Altered mental status type: unspecified Qualified Code(s): R41.82 - Altered mental status, unspecified Code(s): R41.82 - Altered mental status, unspecified Status: Acute Assessment and Plan: LIKELY SECONDARY TO 1. SUPPORTIVE CARE (3) Acute kidney injury: Code(s): N17.9 - Acute kidney failure, unspecified Status: Acute Assessment and Plan: HOLDING LISINOPRIL AND LASIX GENTLE HYDRATION LIKELY TO BE PRE RENAL AZOTEMIA SUPERIMPOSED ON CHRONIC KIDNEY DISEASE IN THE SETTING OF TAKING DIURETICS AND LISINOPRIL (4) Generalized weakness: Code(s): R53.1 - Weakness Status: Acute Assessment and Plan: LIKELY SECONDARY TO ACUTE ILLNESS PT OT WHEN CLINICALLY ABLE TO PARTICIPATE (5) DM type 2 (diabetes mellitus, type 2): Qualifiers: Diabetes mellitus [facility] insulin use: unspecified [facility] insulin use status Diabetes mellitus complication status: without complication Qualified Code(s): E11.9 - Type 2 diabetes mellitus without complications Code(s): E11.9 - Type 2 diabetes mellitus without complications Status: Acute Assessment and Plan: PATIENT IS ON FARXIGA HOWEVER GLOMERULAR EXCRETION FRACTION BELOW 25 WILL HOLD (6) Essential hypertension: Code(s): I10 - Essential (primary) hypertension Status: Acute Assessment and Plan: RESUME HOME MEDS NEEDED WILL HOLD LISINOPRIL WILL HOLD LASIX (7) Foot ulcer, right: Qualifiers: Non-pressure ulcer stage: limited to breakdown of skin Qualified Code(s): L97.511 - Non-pressure chronic ulcer of other part of right foot limited to breakdown of skin Code(s): L97.519 - Non-pressure chronic ulcer of other part of right foot with unspecified severity Status: Acute Assessment and Plan: LOCAL CARE (8) Diastolic congestive heart failure: Code(s): I50.30 - Unspecified diastolic (congestive) heart failure Status: Acute Assessment and Plan: PATIENT APPEARS EUVOLEMIC (9) Diabetic leg ulcer: Code(s): E11.622 - Type 2 diabetes mellitus with other skin ulcer; L97.909 - Non-pressure chronic ulcer of unspecified part of unspecified lower leg with unspecified severity Status: Acute Assessment and Plan: LOCAL CARE (10) PHYLICIA on CPAP: Code(s): G47.33 - Obstructive sleep apnea (adult) (pediatric) Status: Acute Assessment and Plan: CPAP AT NIGHTTIME (11) Aortic stenosis: Code(s): I35.0 - Nonrheumatic aortic (valve) stenosis Status: Acute Assessment and Plan: ON BETA-BLOCKERS
[2023-06-13 21:27] LABS: Glucose Point of Care 108 mg/dl (65-105)
[2023-06-14] VITALS (8 sets, daily range): BP systolic 101–121; BP diastolic 49–61; PULSE 94–117; RESP 19–20; TEMP 36.8–36.9; O2SAT 94–99
--- NOTE | 2023-06-14 03:47 | PC.NURSE ---
0313: Pharmacy called for Meropenem and a.m. levothyroxine. Awaiting receipt.
[2023-06-14] MEDS: MEROPENEM 500 MG in SODIUM CHLORIDE 0.9% IV 100 ML 200 ML IVPB ×2 (05:00→16:01)
[2023-06-14] MEDS: LEVOTHYROXINE SODIUM 150 MCG TABLET PO (05:38)
[2023-06-14] MEDS: cilostazoL 100 MG TABLET PO ×2 (09:00→16:52)
[2023-06-14] MEDS: ACIDOPHILUS/BULGARICUS CHEWABLE TABLET 2 TABLET BY MOUTH (09:00)
[2023-06-14] MEDS: METOPROLOL SUCCINATE EXT REL 12.5 MG TABCR 37.5 MG PO (09:00)
[2023-06-14] MEDS: SODIUM ZIRCONIUM CYCLOSILICATE 10 GM POWD.PACK PO (11:41)
--- NOTE | 2023-06-14 14:30 | P.PNIM_ITS ---
Progress Note: A&P Assessment and Plan (1) UTI (urinary tract infection): Qualifiers: Urinary tract infection type: site unspecified Hematuria presence: without hematuria Qualified Code(s): N39.0 - Urinary tract infection, site not specified Code(s): N39.0 - Urinary tract infection, site not specified Status: Acute Assessment and Plan: UA grossly positive for UTI * Started on meropenem * IV fluids at 75 ml * Urine culture pending * Blood culture pending (2) Altered mental status: Qualifiers: Altered mental status type: unspecified Qualified Code(s): R41.82 - Altered mental status, unspecified Code(s): R41.82 - Altered mental status, unspecified Status: Acute Assessment and Plan: UTI versus hydrocephalus versus dementia * Family states she has been more confused over the last couple months * CT head shows dilated ventricles concerning for possible communicating hydrocephalus, cerebral arteriosclerosis and chronic small-vessel ischemic changes noted * Patient has recurrent urinary incontinence with weakness and impaired gait * Consulted neurology, recommendations appreciated * Reorientation as needed * Delirium precautions * Fall precaution (3) Acute kidney injury: Code(s): N17.9 - Acute kidney failure, unspecified Status: Acute Assessment and Plan: Creatinine baseline appears to be 1.2-1.9 * Creatinine 2.7 on admission * NS at 75 ml * Holding lasix and lisinopril * Avoid nephrotoxic medications * Daily CMP (4) Generalized weakness: Code(s): R53.1 - Weakness Status: Acute Assessment and Plan: PT, OT consulted for assistance with placement recommendations. Family can no longer manage patient's care at home. 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 Diabetes mellitus complication status: without complication Qualified Code(s): E11.9 - Type 2 diabetes mellitus without complications Code(s): E11.9 - Type 2 diabetes mellitus without complications Status: Acute Assessment and Plan: Hgb A1C 6.4% on Farxiga at home * Held due to GFR * ACHS checks * hypoglycemic protocol PRN * Fasting labs less than 150 (6) Essential hypertension: Code(s): I10 - Essential (primary) hypertension Status: Acute Assessment and Plan: * Blood pressures are currently running low * Holding agents at this time * Q 8 hour VS (7) Diastolic congestive heart failure: Code(s): I50.30 - Unspecified diastolic (congestive) heart failure Status: Acute Assessment and Plan: Gentle fluids at 75 ml per hour for NELSON (8) Diabetic leg ulcer: Code(s): E11.622 - Type 2 diabetes mellitus with other skin ulcer; L97.909 - Non-pressure chronic ulcer of unspecified part of unspecified lower leg with unspecified severity Status: Acute Assessment and Plan: * Wound consult * Photos taken * Daily dressing changes (9) PHYLICIA on CPAP: Code(s): G47.33 - Obstructive sleep apnea (adult) (pediatric) Status: Acute Assessment and Plan: CPAP AT NIGHTTIME Subjective Date/time seen: 06/14/23 14:30 Interval history: This is a 78-year-old female a past medical history of hypertension, CKD, CHF, hyperlipidemia, hypothyroidism, PHYLICIA on CPAP, PVD, dm 2, and aortic stenosis who presents to the ER with weakness, fatigue, and increased confusion. Given her confusion she is a poor historian. Her sister is at the bedside. Per the sister's reports, the patient has had worsening confusion over the last couple of months. She was admitted last month with a UTI with E coli ESBL. Today she is alert but very confused. Her sister states that she is had issues with weakness and difficulty walking so she has been essentially bed ridden at home. She has issues with urinary incontinence and frequent UTIs. The patient reports intermittent headaches and dizziness with position changes. She denies vision changes, sore throat, runny nose, chest pain, shortness of breath, abdominal pain, nausea, vomiting, dysuria, constipation, or diarrhea. Review of Systems Review of Systems: ROS unobtainable: Yes unobtainable due to medical condition Exam Narrative: General: well appearing, well developed, well nourished, appears stated age. HEENT: normocephalic, atraumatic. Mucous membranes moist. EOMI, PERRLA, bilateral sclera anicteric, no conjunctival injection. Neck supple without JVD, lymphadenopathy, or bruit. Respiratory: clear to auscultation bilaterally. No rales/rhonic/wheezes. Cardiovascular: Regular rate and rhythm, normal S1-S2 upon auscultation. No murmurs, rubs, or clicks. PMI is nondisplaced, capillary re-fill less than 3 second. Abdomen: Soft, round, no pulsatile masses, non-distended and non-tender. No rebound, no guarding. No CVA tenderness, no hepatosplenomegaly. Bowel sounds present to all four quadrants. No high pitch or tinkling sounds, resonant to percussion. Extremities: No cyanosis, clubbing, or edema present. Pulses are palpable 2/2. Active ROM to all four extremities. Generalized weakness. RLE wound wrapped with Kerlix. Sacrum is pink and non-blanchable. Neuro: Alert and confused. PERRLA. Cranial nerves 2-12 intact without focal deficit Skin: Warm, dry, and intact, without rash, erythema, or lesion Lines: PIV Incisions: NA Psych: flat affect, no hallucinations, no dysarthria, confused Objective Data Vital Signs Vital Signs: Vital Signs - 24 hr 06/13/23 15:00 06/13/23 15:10 06/13/23 15:40 Temperature Pulse Rate 107 H 112 H 99 Respiratory Rate 18 18 18 Blood Pressure 129/86 Pulse Oximetry 97 Oxygen Delivery 06/13/23 15:00 06/13/23 16:31 06/13/23 16:45 Temperature Pulse Rate 112 H 113 H 114 H Respiratory Rate 19 20 21 H Blood Pressure 109/53 L 109/74 Pulse Oximetry 100 96 96 Oxygen Delivery 06/13/23 18:30 06/13/23 18:50 06/13/23 20:00 Temperature 97.6 F Pulse Rate 78 87 Respiratory Rate 17 Blood Pressure 141/99 H Pulse Oximetry 99 Oxygen Delivery Room Air 06/13/23 20:00 06/13/23 20:00 06/14/23 00:00 Temperature 98.0 F Pulse Rate 102 H 111 H Respiratory Rate 18 Blood Pressure 122/62 Pulse Oximetry 99 Oxygen Delivery Room Air 06/13/23 23:26 06/14/23 04:25 06/14/23 05:47 Temperature 98.2 F Pulse Rate 96 95 Respiratory Rate 20 Blood Pressure 115/61 Pulse Oximetry 99 99 Oxygen Delivery Room Air 06/14/23 09:00 06/14/23 08:00 06/14/23 12:00 Temperature Pulse Rate 94 97 111 H Respiratory Rate Blood Pressure Pulse Oximetry Oxygen Delivery 06/14/23 14:24 Temperature 98.4 F Pulse Rate 117 H Respiratory Rate 19 Blood Pressure 101/49 L Pulse Oximetry 97 Oxygen Delivery Intake/Output Intake/Output: Intake & Output 06/11/23 06/12/23 06/13/23 06/14/23 23:59 23:59 23:59 23:59 Intake Total 1100 790 Output Total 200 Balance 900 790 Meds/Results Medications: Active Medications Generic Name Dose Route Start Last Admin Trade Name Freq PRN Reason Stop Dose Admin Cilostazol 100 mg 06/14/23 08:00 06/14/23 09:00 Cilostazol 100 Mg Tablet PO 100 mg BIDWM PREMA Administration Meropenem 500 mg/ Sodium 100 mls @ 200 mls/hr 06/14/23 03:00 06/14/23 05:35 Chloride IVPB Infused Q12H [facility] Infusion Lactobacillus Acidophilus 2 tablet 06/14/23 09:00 06/14/23 09:00 Acidophilus/Bulgaricus Chewable Tablet BY MOUTH 2 tablet DAILY PREMA Administration Levothyroxine Sodium 150 mcg 06/14/23 06:30 06/14/23 05:38 Levothyroxine Sodium 150 Mcg Tablet PO 150 mcg DAILY@0630 PREMA Administration Metoprolol Succinate 37.5 mg 06/14/23 09:00 06/14/23 09:00 Metoprolol Succinate Ext Rel 12.5 Mg Tabcr PO 37.5 mg DAILY PREMA Administration Miconazole Nitrate 1 applic 06/14/23 09:00 06/14/23 09:01 Miconazole 2% Antifungal Ointment 56 Gm TOPICAL 1 applic DAILY PREMA Administration Sodium Zirconium Cyclosilicate 10 gm 06/14/23 10:00 06/14/23 11:41 Sodium Zirconium Cyclosilicate 10 Gm Powd.Pack PO 10 gm DAILY@1000 [facility] Administration Tramadol HCl 50 mg 06/14/23 00:53 Tramadol Hcl (*Crx) 50 Mg Tablet PO QID PRN Pain Radiology Results: ITS Impressions Head CT 06/13/23 14:55 IMPRESSION: Given the history of gait disturbance, altered mental status and dilated ventricles, communicating hydrocephalus should be considered Cerebral atherosclerosis and chronic small vessel ischemic changes of the cerebral white matter Venous Doppler Study 06/13/23 14:59 IMPRESSION: 1. No deep venous thrombosis. Abdomen/Pelvis CT 06/13/23 15:00 IMPRESSION: 1. No acute intra-abdominal/pelvic process. 2. Small sliding-type hiatal hernia. Labs Labs: Laboratory Results - last 24 hr 06/13/23 06/13/23 16:44 20:55 Sodium 134 L Potassium 4.6 Chloride 101 Carbon Dioxide 22 Anion Gap 11 BUN 42 H Creatinine 2.70 H Estim Creat Clear Calc 17 Estimated GFR 17 L Glucose 120 H POC Capillary Glucose 108 H Calcium 10.3 H
[2023-06-14 16:01] LABS: Basophils Absolute Auto 0.1 K/mm3 (0.0-0.1); Basophils Percent Auto 0.7 % (0.2-1.2); Eosinophils Absolute Auto 0.1 K/mm3 (0-0.3); Hematocrit 38.9 % (37.0-47.0); Hemoglobin 11.9 g/dL (12.0-15.0); Immature Granulocyte Absolute 0.01 K/mm3 (0.00-0.031); Immature Granulocyte Percent A 0.1 % (0-0.5); Lymphocytes Absolute Auto 1.68 K/mm3 (0.9-3.2); Lymphocytes Percent Auto 20.8 % (18.3-44.2); Mean Corpuscular HGB Conc 30.6 g/dl (32-36); Mean Corpuscular Hemoglobin 26.6 pg (26-34); Monocytes Absolute Auto 0.9 K/mm3 (0.1-0.6); Monocytes Percent Auto 11.5 % (2.6-8.5); Neutrophils Absolute Auto 5.3 K/mm3 (1.3-6.7); Neutrophils Percent Auto 65.9 % (45.5-73.1); Platelet Count Result 366 k/mm3 (150-375); Red Blood Count 4.47 M/mm3 (4.2-5.4); Red Cell Distribution Width 16.6 % (11.5-14.5); White Blood Count 8.1 K/mm3 (4.5-10.0)
[2023-06-14] MEDS: SODIUM CHLORIDE 0.9% IV 1,000 ML 100 ML IV CONT (16:01)
[2023-06-14 16:11] LABS: Alanine Aminotransferase 12 U/L (6-35); Albumin Level 3.5 g/dL (3.5-5.1); Alkaline Phosphatase 60 U/L (38-126); Anion Gap 7 mmol/L (4-12); Aspartate Amino Transferase 24 U/L (14-36); Bilirubin,Total 0.4 mg/dL (0.2-1.3); Blood Urea Nitrogen 36 mg/dL (7-17); Calcium 9.9 mg/dL (8.4-10.2); Carbon Dioxide 25 mmol/L (22-30); Chloride 103 mmol/L (98-107); Estimated CRCL calculation 21 ml/min; Estimated Glomerular Filt Rate 22; Glucose 128 mg/dL (65-110); Potassium 4.6 mmol/L (3.4-5.0); Sodium 135 mmol/L (137-145)
[2023-06-14 17:21] LABS: Glucose Point of Care 114 mg/dl (65-105)
[2023-06-14 22:26] LABS: Glucose Point of Care 115 mg/dl (65-105)
[2023-06-15] VITALS (10 sets, daily range): BP systolic 110–137; BP diastolic 46–74; PULSE 54–119; RESP 16–18; TEMP 36.3–36.7; O2SAT 98–99
[2023-06-15] MEDS: SODIUM CHLORIDE 0.9% IV 1,000 ML 100 ML IV CONT (02:04)
[2023-06-15] MEDS: MEROPENEM 500 MG in SODIUM CHLORIDE 0.9% IV 100 ML 200 ML IVPB ×2 (02:04→15:44)
[2023-06-15 05:27] LABS: Basophils Absolute Auto 0.1 K/mm3 (0.0-0.1); Basophils Percent Auto 0.6 % (0.2-1.2); Eosinophils Absolute Auto 0.1 K/mm3 (0-0.3); Eosinophils Percent Auto 1.8 % (0-4.4); Hematocrit 34.7 % (37.0-47.0); Hemoglobin 10.8 g/dL (12.0-15.0); Immature Granulocyte Absolute 0.03 K/mm3 (0.00-0.031); Immature Granulocyte Percent A 0.4 % (0-0.5); Lymphocytes Absolute Auto 1.89 K/mm3 (0.9-3.2); Lymphocytes Percent Auto 23.7 % (18.3-44.2); Mean Corpuscular HGB Conc 31.1 g/dl (32-36); Mean Corpuscular Hemoglobin 26.7 pg (26-34); Mean Corpuscular Volume 85.9 fl (80-100); Mean Platelet Volume 11.2 fl (7.4-10.4); Monocytes Absolute Auto 0.9 K/mm3 (0.1-0.6); Neutrophils Percent Auto 62.5 % (45.5-73.1); Platelet Count Result 359 k/mm3 (150-375); Red Blood Count 4.04 M/mm3 (4.2-5.4); Red Cell Distribution Width 16.2 % (11.5-14.5)
[2023-06-15 05:39] LABS: Alanine Aminotransferase 9 U/L (6-35); Albumin Level 2.9 g/dL (3.5-5.1); Alkaline Phosphatase 54 U/L (38-126); Anion Gap 4 mmol/L (4-12); Aspartate Amino Transferase 24 U/L (14-36); Bilirubin,Total 0.3 mg/dL (0.2-1.3); Blood Urea Nitrogen 30 mg/dL (7-17); Calcium 9.2 mg/dL (8.4-10.2); Carbon Dioxide 23 mmol/L (22-30); Chloride 108 mmol/L (98-107); Estimated CRCL calculation 27 ml/min; Estimated Glomerular Filt Rate 29; Glucose 97 mg/dL (65-110); Magnesium 1.5 mg/dL (1.6-2.3); Potassium 4.1 mmol/L (3.4-5.0); Sodium 135 mmol/L (137-145)
[2023-06-15] MEDS: LEVOTHYROXINE SODIUM 150 MCG TABLET PO (06:04)
[2023-06-15 07:33] LABS: Glucose Point of Care 92 mg/dl (65-105)
[2023-06-15] MEDS: ENOXAPARIN 30 MG/0.3 ML SYRINGE SUB-Q (08:15)
[2023-06-15] MEDS: ACIDOPHILUS/BULGARICUS CHEWABLE TABLET 2 TABLET BY MOUTH (08:15)
[2023-06-15] MEDS: METOPROLOL SUCCINATE EXT REL 12.5 MG TABCR 37.5 MG PO (08:15)
[2023-06-15] MEDS: cilostazoL 100 MG TABLET PO ×2 (08:17→17:12)
[2023-06-15] MEDS: SODIUM ZIRCONIUM CYCLOSILICATE 10 GM POWD.PACK PO (12:48)
[2023-06-15 12:54] LABS: Glucose Point of Care 141 mg/dl (65-105)
--- NOTE | 2023-06-15 15:37 | P.CONNEU_ITS ---
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 use: unspecified prison insulin use status Diabetes mellitus complication status: without complication Qualified Code(s): E11.9 - Type 2 diabetes mellitus without complications Code(s): E11.9 - Type 2 diabetes mellitus without complications Status: Acute (2) Neurologic gait dysfunction: Code(s): R26.9 - Unspecified abnormalities of gait and mobility Status: Acute Plan question has been raised regarding the possibility of normal pressure hydrocephalus due to the gait dysfunction and also because of the underlying memory dysfunction, all the pros and cons of this particular diagnosis were discussed with the family members if they want to pursue further she will need a cisternogram and neurosurgical opinion obviously that has to be done at a tertiary care facility they decide to pursue further they will let us know in the meantime routine EEG can be obtained. Consult date: 06/15/23 HPI: Racheal North is a 78 year old female Has been admitted to the hospital through the emergency room for the complaints of change in the mental status with decreased p.o. intake and complaints of increasing generalized weakness in addition to the history of recent UTI which led to sepsis reportedly patient has been worsening over the course of the last week initially she declined the transportation on Friday and came into the hospital today. her medications particularly included Farxiga potassium chloride and tramadol in addition to multiple allergies particularly sulfa she also has history of chronic renal disease stage III, diastolic congestive heart failure, hypertension, hypothyroid ism, and peripheral vascular disease, in addition to vitamin-D deficiency she has undergone surgery for the bladder repair and prolapse, she is never a smoker never alcohol intake and initial exam in the emergency room revealed her to have ability to move all 4 extremities and the cranial nerve examination was intact additionally her vital signs were normal except pulse rate was 114, initial CBC with blood sugar of 453 BMP with sodium of 134 BUN 42 and creatinine 2.70 urine positive for nitrate WBCs initial CT scan of the head raised the possibility of dilated ventricles with the possibility of communicating hydrocephalus Doppler study of the lower extremities venous normal abdominal and pelvic CT scan small sliding-type hiatal hernia. [facility] Past Medical History Medical History Aortic stenosis Benign essential hypertension BMI 38.0-38.9,adult Body mass index (BMI) 45.0-49.9, adult Chronic kidney disease, stage 3 Degenerative joint disease Diastolic congestive heart failure Essential hypertension Hyperlipidemia Hypothyroidism (acquired) Murmur, heart Nausea and vomiting in adult PHYLICIA on CPAP Peripheral vascular disease Tachycardia Type 2 diabetes mellitus Vitamin D deficiency Surgical History Surgical History History of bladder repair surgery For bladder prolapse. Family History Family History Mother Hypertension, Onset Age: 70 Cerebrovascular accident Patient's mother is Sibling Carcinoma of colon Other Family history of arthritis Family history of coronary artery disease Social History Social History Social History: Surrogate medical decision maker: Dago North, spouse. Code status: Full code. Smoking status: Never smoker Second hand tobacco smoke exposure: No Alcohol intake: never Substance use: never Substance use type: does not use Do You Feel Safe in your Home?: Yes Lack of Transportation: No Lack of Food: Never True Current Housing: I Have Housing Concerned About Future Housing: No Difficulty Paying Gas/Electric Bills: No Difficulty Paying for Meds: No Currently Unemployed: No Education: Trade/Vocational Certificate Difficulty w/ Childcare or Family Care: No Additional living arrangements comments: Lives with spouse in [place]. Spiritual care concerns: No Meds Home Medications and Allergies Home Medications Medication Instructions Recorded Confirmed Type dapagliflozin propanediol 5 mg 5 mg PO DAILY #30 tabs 01/28/23 06/13/23 Rx tablet (Farxiga) Lactobacillus acidophilus 10 10,000 mmu cells PO DAILY #10 caps 04/08/23 4 Rx billion cell capsule (Probiotic) cilostazol 100 mg tablet 100 mg PO BID #180 tabs 04/29/23 06/13/23 Rx cholecalciferol (vitamin D3) 50 50 mcg PO DAILY 05/29/23 06/13/23 History mcg (2,000 unit) capsule furosemide 40 mg tablet 60 mg PO QAM 05/29/23 06/13/23 History miconazole nitrate 2 % topical 1 applic topical DAILY 05/29/23 06/13/23 History ointment (Critic-Aid Clear AF (miconazole)) nystatin 100,000 unit/gram topical 1 applic topical DAILY 05/29/23 06/13/23 History powder collagenase clostridium histo. 250 1 applic topical DAILY #90 grams 06/03/23 0 06/13/23 Rx unit/gram topical ointment (Santyl) levothyroxine 150 mcg tablet 150 mcg PO DAILY #30 tabs 06/03/23 06/13/23 Rx lisinopril 20 mg tablet 20 mg PO DAILY #90 tabs 06/03/23 06/13/23 Rx metoprolol succinate 25 mg capsule 37.5 mg PO DAILY #45 ea 06/03/23 06/13/23 Rx sprinkle, ext. release 24 hr spironolactone 25 mg tablet 25 mg PO DAILY #30 tabs 06/09/23 06/13/23 Rx (Aldactone) ondansetron 8 mg disintegrating 8 mg PO Q8H PRN nausea and 06/13/23 06/13/23 Rx tablet vomiting #30 tabs potassium chloride 20 mEq oral 20 meq PO DAILY 06/13/23 06/13/23 History packet (Klor-Con) tramadol 50 mg tablet 50 mg PO QID PRN Pain 06/13/23 06/13/23 History Allergies Allergy/AdvReac Type Severity Reaction Status Date / Time Influenza Virus Vaccines Allergy Unknown Anaphylaxis Verified 06/03/23 11:10 Sulfa (Sulfonamide AdvReac Intermediate Rash Verified 06/03/23 11:10 Antibiotics) 1 GENERAL ANESTHISIA LAST Allergy Unknown Other Uncoded 06/03/23 11:10 2 SURGS Vital Signs Vital Signs - 24 hr 06/14/23 20:00 06/14/23 20:00 06/14/23 20:00 Temperature 36.8 C Pulse Rate 113 H 111 H Respiratory Rate 20 Blood Pressure 121/50 L Pulse Oximetry 94 Oxygen Delivery Room Air 06/15/23 00:00 06/15/23 06:00 06/15/23 04:00 Temperature 36.7 C Pulse Rate 97 95 86 Respiratory Rate 18 Blood Pressure 130/46 L Pulse Oximetry 98 Oxygen Delivery 06/15/23 08:15 06/15/23 13:10 06/15/23 08:00 Temperature Pulse Rate 114 H 119 H Respiratory Rate Blood Pressure Pulse Oximetry Oxygen Delivery Room Air 06/15/23 12:00 06/15/23 14:00 Temperature 36.5 C Pulse Rate 85 54 L Respiratory Rate 16 Blood Pressure 110/74 Pulse Oximetry 98 Oxygen Delivery Exam Narrative: revealed her to be awake no sick would stress family members around patient is sitting in the chair single the instruction fairly well head normocephalic with no bruit ear nose throat exam normal neck supple heart regular lungs clear abdomen is soft neurologically she is awake alert follow the instruction fairly well pupils round regular feels the vision full extraocular movements full face symmetrical tongue midline motor examination revealed her to have symmetrical strength in upper and lower extremity deep tendon reflexes sluggish plantars are downgoing she has difficulties in ambulating Results Labs 06/15/23 05:09 06/15/23 05:09 Labs: Short CBC 06/14/23 06/15/23 Range/Units 15:57 05:09 WBC 8.1 8.0 (4.5-10.0) K/mm3 Hgb 11.9 L 10.8 L (12.0-15.0) g/dL Hct 38.9 34.7 L (37.0-47.0) % Plt Count 366 359 (150-375) k/mm3 BMP 06/14/23 06/15/23 15:57 05:09 Sodium 135 L 135 L Potassium 4.6 4.1 Chloride 103 108 H Carbon Dioxide 25 23 BUN 36 H 30 H Creatinine 2.20 H 1.70 H Glucose 128 H 97 Calcium 9.9 9.2 Liver Function 06/14/23 06/15/23 Range/Units 15:57 05:09 Total Bilirubin 0.4 0.3 (0.2-1.3) mg/dL AST 24 24 (14-36) U/L ALT 12 9 (6-35) U/L Alkaline Phosphatase 60 54 (38-126) U/L Albumin 3.5 2.9 L (3.5-5.1) g/dL AMG Consult Billing Inpatient Consult Inpatient Consults: [id number] Consult Moderate
--- NOTE | 2023-06-15 15:59 | P.PNIM_ITS ---
Progress Note: A&P Assessment and Plan (1) UTI (urinary tract infection): Qualifiers: Urinary tract infection type: site unspecified Hematuria presence: without hematuria Qualified Code(s): N39.0 - Urinary tract infection, site not specified Code(s): N39.0 - Urinary tract infection, site not specified Status: Acute Assessment and Plan: UA grossly positive for UTI * Started on meropenem * IV fluids at 75 ml * Urine culture pending * Blood culture pending 06/14: * Urine culture is growing E coli. Sensitivities pending. * Continue meropenem * Stopping IV fluids as her creatinine has decreased to 1.7 (baseline ranging 1.1-1.9) * She is eating and drinking appropriately * P.r.n. Tylenol as needed for mild pain or fever (2) Altered mental status: Qualifiers: Altered mental status type: unspecified Qualified Code(s): R41.82 - Altered mental status, unspecified Code(s): R41.82 - Altered mental status, unspecified Status: Acute Assessment and Plan: UTI versus hydrocephalus versus dementia * Family states she has been more confused over the last couple months * CT head shows dilated ventricles concerning for possible communicating hydrocephalus, cerebral arteriosclerosis and chronic small-vessel ischemic changes noted * Patient has recurrent urinary incontinence with weakness and impaired gait * Consulted neurology, recommendations appreciated * Reorientation as needed * Delirium precautions * Fall precaution 06/14: * Neurology discuss with family further workup of hydrocephalus including transfer to tertiary [facility] for cisternogram. Family is in discussion over this. * EEG today * Patient remains oriented to self only (3) Acute kidney injury: Code(s): N17.9 - Acute kidney failure, unspecified Status: Acute Assessment and Plan: Creatinine baseline appears to be 1.2-1.9 * Creatinine 2.7 on admission * NS at 75 ml * Holding lasix and lisinopril * Avoid nephrotoxic medications * Daily CMP 06/14: * Creatinine 1.7 * IV fluids discontinued * She is eating and drinking without issues (4) Generalized weakness: Code(s): R53.1 - Weakness Status: Acute Assessment and Plan: PT, OT consulted for assistance with placement recommendations. Family can no longer manage patient's care at home. 06/14: * Up in a chair * PT evaluated this afternoon and is recommending SNF (5) DM type 2 (diabetes mellitus, type 2): Qualifiers: Diabetes mellitus fdc insulin use: unspecified fdc insulin use status Diabetes mellitus complication status: without complication Qualified Code(s): E11.9 - Type 2 diabetes mellitus without complications Code(s): E11.9 - Type 2 diabetes mellitus without complications Status: Acute Assessment and Plan: Hgb A1C 6.4% on Farxiga at home * Held due to GFR * ACHS checks * hypoglycemic protocol PRN * Fasting labs less than 150 06/14: * Blood glucose ranging 114-141 (6) Essential hypertension: Code(s): I10 - Essential (primary) hypertension Status: Acute Assessment and Plan: * Blood pressures are currently running low * Holding agents at this time * Q 8 hour VS 06/14: * Blood pressures reviewed * Continuing to hold antihypertensives (7) Diastolic congestive heart failure: Code(s): I50.30 - Unspecified diastolic (congestive) heart failure Status: Acute Assessment and Plan: Gentle fluids at 75 ml per hour for NELSON 06/14: * Fluids DC today. Creatinine improving. (8) Diabetic leg ulcer: Code(s): E11.622 - Type 2 diabetes mellitus with other skin ulcer; L97.909 - Non-pressure chronic ulcer of unspecified part of unspecified lower leg with unspecified severity Status: Acute Assessment and Plan: * Wound consult * Photos taken * Daily dressing changes 06/14: * Nystatin to skin folds to decrease moisture * Right lower posterior leg wound with daily wound changes * Right foot wound with daily changes * Coccyx wound with daily changes * Wound care orders were taken from recent home health notes. * Wound care will consult and see Friday and can make changes as they see fit. (9) PHYLICIA on CPAP: Code(s): G47.33 - Obstructive sleep apnea (adult) (pediatric) Status: Acute Assessment and Plan: CPAP AT NIGHTTIME Subjective Date/time seen: 06/15/23 15:59 Interval history: This is a 78-year-old female a past medical history of hypertension, CKD, CHF, hyperlipidemia, hypothyroidism, PHYLICIA on CPAP, PVD, dm 2, and aortic stenosis who presents to the ER with weakness, fatigue, and increased confusion. Given her confusion she is a poor historian. Her sister is at the bedside. Per the sister's reports, the patient has had worsening confusion over the last couple of months. She was admitted last month with a UTI with E coli ESBL. Today she is alert but very confused. Her sister states that she is had issues with weakness and difficulty walking so she has been essentially bed ridden at home. She has issues with urinary incontinence and frequent UTIs. The patient reports intermittent headaches and dizziness with position changes. She denies vision changes, sore throat, runny nose, chest pain, shortness of breath, abdominal pain, nausea, vomiting, dysuria, constipation, or diarrhea. 06/14: Patient was seen in consult Neurology. He discussed with patient family the possibility of needing neurosurgery consult and transfer to tertiary care center for possible cisternogram. Family is going to review this information and make a decision. Racheal continues to be confused. She is oriented to self only. Her only complaint for me this morning is that she is dealing with ?personal problems?. She is up in the chair and appears in no acute distress. Review of Systems Review of Systems: ROS unobtainable: Yes unobtainable due to medical condition Exam Narrative: General: well appearing, well developed, well nourished, appears stated age. HEENT: normocephalic, atraumatic. Mucous membranes moist. EOMI, PERRLA, bilateral sclera anicteric, no conjunctival injection. Neck supple without JVD, lymphadenopathy, or bruit. Respiratory: clear to auscultation bilaterally. No rales/rhonic/wheezes. Cardiovascular: Regular rate and rhythm, normal S1-S2 upon auscultation. No murmurs, rubs, or clicks. PMI is nondisplaced, capillary re-fill less than 3 second. Abdomen: Soft, round, no pulsatile masses, non-distended and non-tender. No rebound, no guarding. No CVA tenderness, no hepatosplenomegaly. Bowel sounds present to all four quadrants. No high pitch or tinkling sounds, resonant to percussion. Extremities: No cyanosis, clubbing, or edema present. Pulses are palpable 2/2. Active ROM to all four extremities. Generalized weakness. RLE wound wrapped with Kerlix. Sacrum is pink and non-blanchable. Neuro: Alert and confused. PERRLA. Cranial nerves 2-12 intact without focal deficit Skin: Warm, dry, and intact, without rash, erythema, or lesion Lines: PIV Incisions: NA Psych: flat affect, no hallucinations, no dysarthria, confused Objective Data Vital Signs Vital Signs: Vital Signs - 24 hr 06/14/23 20:00 06/14/23 20:00 06/14/23 20:00 Temperature 98.3 F Pulse Rate 113 H 111 H Respiratory Rate 20 Blood Pressure 121/50 L Pulse Oximetry 94 Oxygen Delivery Room Air 06/15/23 00:00 06/15/23 06:00 06/15/23 04:00 Temperature 98.1 F Pulse Rate 97 95 86 Respiratory Rate 18 Blood Pressure 130/46 L Pulse Oximetry 98 Oxygen Delivery 06/15/23 08:15 06/15/23 13:10 06/15/23 08:00 Temperature Pulse Rate 114 H 119 H Respiratory Rate Blood Pressure Pulse Oximetry Oxygen Delivery Room Air 06/15/23 12:00 06/15/23 14:00 Temperature 97.7 F Pulse Rate 85 54 L Respiratory Rate 16 Blood Pressure 110/74 Pulse Oximetry 98 Oxygen Delivery Intake/Output Intake/Output: Intake & Output 06/12/23 06/13/23 06/14/23 06/15/23 23:59 23:59 23:59 23:59 Intake Total 1100 1380 1820 Output Total 200 Balance 900 1380 1820 Meds/Results Medications: Active Medications Generic Name Dose Route Start Last Admin Trade Name Freq PRN Reason Stop Dose Admin Cilostazol 100 mg 06/14/23 08:00 06/15/23 08:17 Cilostazol 100 Mg Tablet PO 100 mg BIDWM PREMA Administration Dextrose 12.5 gm 06/14/23 15:12 Dextrose 50% 25 Gm/50 Ml Syringe IV PUSH PRN PRN Hypoglycemia Protocol Enoxaparin Sodium 30 mg 06/15/23 09:00 06/15/23 08:15 Enoxaparin 30 Mg/0.3 Ml Syringe SUB-Q 30 mg DAILY PREMA Administration Glucagon 1 mg 06/14/23 15:12 Glucagon For Inj 1 Mg Vial IM PRN PRN Hypoglycemia Protocol Glucose 15 gm 06/14/23 15:12 Glucose Oral Gel 15 Gm Of Glucse In 37.5 Gm Tube PO PRN PRN Hypoglycemia Protocol Meropenem 500 mg/ Sodium 100 mls @ 200 mls/hr 06/14/23 03:00 06/15/23 15:44 Chloride IVPB 200 mls/hr Q12H PREMA Administration Sodium Chloride 1,000 mls @ 100 mls/hr 06/14/23 15:05 06/15/23 02:04 Normal Saline Iv IV CONT 100 mls/hr .Q10H PREMA Administration Dextrose 1,000 mls @ 100 mls/hr 06/14/23 15:12 Dextrose 5% 1,000 Ml IVPB PRN PRN Hypoglycemia Protocol Lactobacillus Acidophilus 2 tablet 06/14/23 09:00 06/15/23 08:15 Acidophilus/Bulgaricus Chewable Tablet BY MOUTH 2 tablet DAILY PREMA Administration Levothyroxine Sodium 150 mcg 06/14/23 06:30 06/15/23 06:04 Levothyroxine Sodium 150 Mcg Tablet PO 150 mcg DAILY@0630 PREMA Administration Metoprolol Succinate 37.5 mg 06/14/23 09:00 06/15/23 08:15 Metoprolol Succinate Ext Rel 12.5 Mg Tabcr PO 37.5 mg DAILY PREMA Administration Miconazole Nitrate 1 applic 06/14/23 09:00 06/15/23 08:16 Miconazole 2% Antifungal Ointment 56 Gm TOPICAL 1 applic DAILY PREMA Administration Sodium Zirconium Cyclosilicate 10 gm 06/14/23 10:00 06/15/23 12:48 Sodium Zirconium Cyclosilicate 10 Gm Powd.Pack PO 10 gm DAILY@1000 PREMA Administration Tramadol HCl 50 mg 06/14/23 00:53 Tramadol Hcl (*Crx) 50 Mg Tablet PO QID PRN Pain Radiology Results: ITS Impressions Head CT 06/13/23 14:55 IMPRESSION: Given the history of gait disturbance, altered mental status and dilated ventricles, communicating hydrocephalus should be considered Cerebral atherosclerosis and chronic small vessel ischemic changes of the cerebral white matter Venous Doppler Study 06/13/23 14:59 IMPRESSION: 1. No deep venous thrombosis. Abdomen/Pelvis CT 06/13/23 15:00 IMPRESSION: 1. No acute intra-abdominal/pelvic process. 2. Small sliding-type hiatal hernia. Renal Ultrasound 06/14/23 18:07 IMPRESSION: Unremarkable renal sonogram findings. Echogenic liver, most commonly due to steatosis but also can be seen with hepatitis and fibrosis Labs Labs: Laboratory Results - last 24 hr 06/14/23 06/14/23 06/14/23 15:57 17:19 20:02 WBC 8.1 RBC 4.47 Hgb 11.9 L Hct 38.9 MCV 87.0 MCH 26.6 MCHC 30.6 L RDW 16.6 H Plt Count 366 MPV 11.0 H Immature Gran % (Auto) 0.1 Neut % (Auto) 65.9 Lymph % (Auto) 20.8 [place] % (Auto) 11.5 H Eos % (Auto) 1.0 Baso % (Auto) 0.7 Lymph # (Auto) 1.68 [place] # (Auto) 0.9 H Eos # (Auto) 0.1 Baso # (Auto) 0.1 Abs Immat Gran (auto) 0.01 Absolute Neuts (auto) 5.3 Absolute Nucleated RBC 0.000 Nucleated RBC % 0.0 Sodium 135 L Potassium 4.6 Chloride 103 Carbon Dioxide 25 Anion Gap 7 BUN 36 H Creatinine 2.20 H Estim Creat Clear Calc 21 Estimated GFR 22 L Glucose 128 H POC Capillary Glucose 114 H 115 H Calcium 9.9 Magnesium Total Bilirubin 0.4 AST 24 ALT 12 Alkaline Phosphatase 60 Total Protein 8.0 Albumin 3.5 06/15/23 06/15/23 06/15/23 05:09 07:15 11:57 WBC 8.0 RBC 4.04 L Hgb 10.8 L Hct 34.7 L MCV 85.9 MCH 26.7 MCHC 31.1 L RDW 16.2 H Plt Count 359 MPV 11.2 H Immature Gran % (Auto) 0.4 Neut % (Auto) 62.5 Lymph % (Auto) 23.7 [place] % (Auto) 11.0 H Eos % (Auto) 1.8 Baso % (Auto) 0.6 Lymph # (Auto) 1.89 [place] # (Auto) 0.9 H Eos # (Auto) 0.1 Baso # (Auto) 0.1 Abs Immat Gran (auto) 0.03 Absolute Neuts (auto) 5.0 Absolute Nucleated RBC 0.000 Nucleated RBC % 0.0 Sodium 135 L Potassium 4.1 Chloride 108 H Carbon Dioxide 23 Anion Gap 4 BUN 30 H Creatinine 1.70 H Estim Creat Clear Calc 27 Estimated GFR 29 L Glucose 97 POC Capillary Glucose 92 141 H Calcium 9.2 Magnesium 1.5 L Total Bilirubin 0.3 AST 24 ALT 9 Alkaline Phosphatase 54 Total Protein 6.0 L Albumin 2.9 L
[2023-06-15] MEDS: MAGNESIUM OXIDE 400 MG TABLET PO ×2 (17:13→20:29)
[2023-06-15 18:45] LABS: Glucose Point of Care 137 mg/dl (65-105)
[2023-06-15] MEDS: TOLNAFTATE 1% POWDER 45 GM BTL 1 APPLIC TOPICAL (20:29)
[2023-06-15 20:35] LABS: Glucose Point of Care 125 mg/dl (65-105)
[2023-06-16] VITALS (9 sets, daily range): BP systolic 119–136; BP diastolic 46–84; PULSE 81–126; RESP 16–20; TEMP 36.3–37; O2SAT 95–98; BMI 38.2
[2023-06-16] MEDS: MEROPENEM 500 MG in SODIUM CHLORIDE 0.9% IV 100 ML 200 ML IVPB (03:20)
[2023-06-16] MEDS: LEVOTHYROXINE SODIUM 150 MCG TABLET PO (05:34)
[2023-06-16 05:49] LABS: Basophils Absolute Auto 0.1 K/mm3 (0.0-0.1); Basophils Percent Auto 0.8 % (0.2-1.2); Eosinophils Absolute Auto 0.1 K/mm3 (0-0.3); Eosinophils Percent Auto 1.5 % (0-4.4); Hematocrit 34.2 % (37.0-47.0); Hemoglobin 10.7 g/dL (12.0-15.0); Immature Granulocyte Absolute 0.03 K/mm3 (0.00-0.031); Immature Granulocyte Percent A 0.4 % (0-0.5); Lymphocytes Absolute Auto 1.79 K/mm3 (0.9-3.2); Lymphocytes Percent Auto 21.6 % (18.3-44.2); Mean Corpuscular HGB Conc 31.3 g/dl (32-36); Mean Corpuscular Hemoglobin 26.8 pg (26-34); Mean Corpuscular Volume 85.5 fl (80-100); Mean Platelet Volume 10.9 fl (7.4-10.4); Monocytes Absolute Auto 0.9 K/mm3 (0.1-0.6); Monocytes Percent Auto 10.5 % (2.6-8.5); Neutrophils Absolute Auto 5.4 K/mm3 (1.3-6.7); Neutrophils Percent Auto 65.2 % (45.5-73.1); Platelet Count Result 328 k/mm3 (150-375); Red Cell Distribution Width 16.5 % (11.5-14.5); White Blood Count 8.3 K/mm3 (4.5-10.0)
[2023-06-16 06:16] LABS: Alanine Aminotransferase 9 U/L (6-35); Albumin Level 2.9 g/dL (3.5-5.1); Alkaline Phosphatase 54 U/L (38-126); Anion Gap 7 mmol/L (4-12); Aspartate Amino Transferase 21 U/L (14-36); Bilirubin,Total 0.3 mg/dL (0.2-1.3); Blood Urea Nitrogen 23 mg/dL (7-17); Calcium 9.4 mg/dL (8.4-10.2); Carbon Dioxide 22 mmol/L (22-30); Chloride 106 mmol/L (98-107); Estimated CRCL calculation 33 ml/min; Estimated Glomerular Filt Rate 37; Glucose 107 mg/dL (65-110); Magnesium 1.6 mg/dL (1.6-2.3); Sodium 135 mmol/L (137-145)
[2023-06-16 08:28] LABS: Glucose Point of Care 100 mg/dl (65-105)
[2023-06-16] MEDS: METOPROLOL SUCCINATE EXT REL 12.5 MG TABCR 37.5 MG PO (09:23)
[2023-06-16] MEDS: MAGNESIUM OXIDE 400 MG TABLET PO (09:24)
[2023-06-16] MEDS: cilostazoL 100 MG TABLET PO (09:24)
[2023-06-16] MEDS: ACIDOPHILUS/BULGARICUS CHEWABLE TABLET 2 TABLET BY MOUTH (09:24)
[2023-06-16] MEDS: TOLNAFTATE 1% POWDER 45 GM BTL 1 APPLIC TOPICAL (09:25)
[2023-06-16] MEDS: ENOXAPARIN 40 MG/0.4 ML SYRINGE SUB-Q (09:25)
[2023-06-16] MEDS: SODIUM ZIRCONIUM CYCLOSILICATE 10 GM POWD.PACK PO (10:13)
--- NOTE | 2023-06-16 10:36 | P.PNIM_ITS ---
Progress Note: A&P Assessment and Plan (1) UTI (urinary tract infection): Qualifiers: Hematuria presence: without hematuria Urinary tract infection type: site unspecified Qualified Code(s): N39.0 - Urinary tract infection, site not specified Code(s): N39.0 - Urinary tract infection, site not specified Status: Acute Assessment and Plan: UA grossly positive for UTI * Started on meropenem * IV fluids at 75 ml * Urine culture pending * Blood culture pending 06/14: * Urine culture is growing E coli. Sensitivities pending. * Continue meropenem * Stopping IV fluids as her creatinine has decreased to 1.7 (baseline ranging 1.1-1.9) * She is eating and drinking appropriately * P.r.n. Tylenol as needed for mild pain or fever 06/15: * ESBL already on meropenem * Can increase dose to 1 gram q 12 per ID pharmacist * She needs two more days and then she is good to go to SNF (2) Altered mental status: Qualifiers: Altered mental status type: unspecified Qualified Code(s): R41.82 - Altered mental status, unspecified Code(s): R41.82 - Altered mental status, unspecified Status: Acute Assessment and Plan: UTI versus hydrocephalus versus dementia * Family states she has been more confused over the last couple months * CT head shows dilated ventricles concerning for possible communicating hydrocephalus, cerebral arteriosclerosis and chronic small-vessel ischemic changes noted * Patient has recurrent urinary incontinence with weakness and impaired gait * Consulted neurology, recommendations appreciated * Reorientation as needed * Delirium precautions * Fall precaution 06/14: * Neurology discuss with family further workup of hydrocephalus including transfer to tertiary care center for cisternogram. Family is in discussion over this. * EEG today * Patient remains oriented to self only 06/15: * Does not appear to be improving with resolution of her UTI * Outpatient neurosurgery consult at discharge (3) Acute kidney injury: Code(s): N17.9 - Acute kidney failure, unspecified Status: Acute Assessment and Plan: Creatinine baseline appears to be 1.2-1.9 * Creatinine 2.7 on admission * NS at 75 ml * Holding lasix and lisinopril * Avoid nephrotoxic medications * Daily CMP 06/14: * Creatinine 1.7 * IV fluids discontinued * She is eating and drinking without issue 06/15: * Stable (4) Generalized weakness: Code(s): R53.1 - Weakness Status: Acute Assessment and Plan: PT, OT consulted for assistance with placement recommendations. Family can no longer manage patient's care at home. 06/14: * Up in a chair * PT evaluated this afternoon and is recommending SNF (5) DM type 2 (diabetes mellitus, type 2): Qualifiers: Diabetes mellitus complication status: without complication Diabetes mellitus snf insulin use: unspecified snf insulin use status Qualified Code(s): E11.9 - Type 2 diabetes mellitus without complications Code(s): E11.9 - Type 2 diabetes mellitus without complications Status: Acute Assessment and Plan: Hgb A1C 6.4% on Farxiga at home * Held due to GFR * ACHS checks * hypoglycemic protocol PRN * Fasting labs less than 150 06/14: * Blood glucose ranging 114-141 (6) Essential hypertension: Code(s): I10 - Essential (primary) hypertension Status: Acute Assessment and Plan: * Blood pressures are currently running low * Holding agents at this time * Q 8 hour VS 06/14: * Blood pressures reviewed * Continuing to hold antihypertensives (7) Diastolic congestive heart failure: Code(s): I50.30 - Unspecified diastolic (congestive) heart failure Status: Acute Assessment and Plan: Gentle fluids at 75 ml per hour for NELSON 06/14: * Fluids DC today. Creatinine improving. (8) Diabetic leg ulcer: Code(s): E11.622 - Type 2 diabetes mellitus with other skin ulcer; L97.909 - Non-pressure chronic ulcer of unspecified part of unspecified lower leg with unspecified severity Status: Acute Assessment and Plan: * Wound consult * Photos taken * Daily dressing changes 06/14: * Nystatin to skin folds to decrease moisture * Right lower posterior leg wound with daily wound changes * Right foot wound with daily changes * Coccyx wound with daily changes * Wound care orders were taken from recent home health notes. * Wound care will consult and see Friday and can make changes as they see fit. (9) PHYLICIA on CPAP: Code(s): G47.33 - Obstructive sleep apnea (adult) (pediatric) Status: Acute Assessment and Plan: CPAP AT NIGHTTIME Subjective Date/time seen: 06/16/23 10:36 Interval history: This is a 78-year-old female a past medical history of hypertension, CKD, CHF, hyperlipidemia, hypothyroidism, PHYLICIA on CPAP, PVD, dm 2, and aortic stenosis who presents to the ER with weakness, fatigue, and increased confusion. Given her confusion she is a poor historian. Her sister is at the bedside. Per the sister's reports, the patient has had worsening confusion over the last couple of months. She was admitted last month with a UTI with E coli ESBL. Today she is alert but very confused. Her sister states that she is had issues with weakness and difficulty walking so she has been essentially bed ridden at home. She has issues with urinary incontinence and frequent UTIs. The patient reports intermittent headaches and dizziness with position changes. She denies vision changes, sore throat, runny nose, chest pain, shortness of breath, abdominal pain, nausea, vomiting, dysuria, constipation, or diarrhea. 06/14: Patient was seen in consult Neurology. He discussed with patient family the possibility of needing neurosurgery consult and transfer to tertiary care center for possible cisternogram. Family is going to review this information and make a decision. Racheal continues to be confused. She is oriented to self only. Her only complaint for me this morning is that she is dealing with ?personal problems?. She is up in the chair and appears in no acute distress. 06/15: Patient is seen in chair in no acute distress. She is anxious though. She is fixated on going to [place] for surgery. I spoke with Dr Allen with neurology and he says that the procedure for her probable hydrocephalus is outpatient. SHe will remain inpatient for two more days for IV antibiotics given her ESBL UTI. I spoke with her , Dago, twice today and updated him on the plan of care. Review of Systems Review of Systems: ROS unobtainable: Yes unobtainable due to medical condition Exam Narrative: General: well appearing, well developed, well nourished, appears stated age. HEENT: normocephalic, atraumatic. Mucous membranes moist. EOMI, PERRLA, bilateral sclera anicteric, no conjunctival injection. Neck supple without JVD, lymphadenopathy, or bruit. Respiratory: clear to auscultation bilaterally. No rales/rhonic/wheezes. Cardiovascular: Regular rate and rhythm, normal S1-S2 upon auscultation. No murmurs, rubs, or clicks. PMI is nondisplaced, capillary re-fill less than 3 second. Abdomen: Soft, round, no pulsatile masses, non-distended and non-tender. No rebound, no guarding. No CVA tenderness, no hepatosplenomegaly. Bowel sounds present to all four quadrants. No high pitch or tinkling sounds, resonant to percussion. Extremities: No cyanosis, clubbing, or edema present. Pulses are palpable 2/2. Active ROM to all four extremities. Generalized weakness. RLE wound wrapped with Kerlix. Sacrum is pink and non-blanchable. Neuro: Alert and confused. PERRLA. Cranial nerves 2-12 intact without focal deficit Skin: Warm, dry, and intact, without rash, erythema, or lesion Lines: PIV Incisions: NA Psych: flat affect, no hallucinations, no dysarthria, confused Objective Data Vital Signs Vital Signs: Vital Signs - 24 hr 06/15/23 13:10 06/15/23 12:00 06/15/23 14:00 Temperature 97.7 F Pulse Rate 85 54 L Respiratory Rate 16 Blood Pressure 110/74 Pulse Oximetry 98 Oxygen Delivery Room Air 06/15/23 16:00 06/15/23 20:45 06/15/23 20:00 Temperature 97.3 F L Pulse Rate 114 H 108 H 113 H Respiratory Rate 18 Blood Pressure 137/53 L Pulse Oximetry 99 Oxygen Delivery 06/15/23 20:00 06/16/23 00:00 06/16/23 04:00 Temperature Pulse Rate 97 81 Respiratory Rate Blood Pressure Pulse Oximetry Oxygen Delivery Room Air 06/16/23 05:18 06/16/23 09:23 06/15/23 10:39 Temperature 97.4 F L Pulse Rate 97 121 H Respiratory Rate 18 Blood Pressure 135/50 L Pulse Oximetry 95 Oxygen Delivery Room Air Intake/Output Intake/Output: Intake & Output 06/13/23 06/14/23 06/15/23 06/16/23 23:59 23:59 23:59 23:59 Intake Total 1100 1380 2700 100 Output Total 200 0 Balance 900 1380 2700 100 Meds/Results Medications: Active Medications Generic Name Dose Route Start Last Admin Trade Name Freq PRN Reason Stop Dose Admin Acetaminophen 650 mg 06/15/23 16:07 Acetaminophen 325 Mg Tablet PO Q4H PRN Mild Pain (1-3) or Fever Cilostazol 100 mg 06/14/23 08:00 06/16/23 09:24 Cilostazol 100 Mg Tablet PO 100 mg BIDWM PREMA Administration Dextrose 12.5 gm 06/14/23 15:12 Dextrose 50% 25 Gm/50 Ml Syringe IV PUSH PRN PRN Hypoglycemia Protocol Enoxaparin Sodium 40 mg 06/16/23 09:00 06/16/23 09:25 Enoxaparin 40 Mg/0.4 Ml Syringe SUB-Q 40 mg DAILY PREMA Administration Glucagon 1 mg 06/14/23 15:12 Glucagon For Inj 1 Mg Vial IM PRN PRN Hypoglycemia Protocol Glucose 15 gm 06/14/23 15:12 Glucose Oral Gel 15 Gm Of Glucse In 37.5 Gm Tube PO PRN PRN Hypoglycemia Protocol Meropenem 500 mg/ Sodium 100 mls @ 200 mls/hr 06/14/23 03:00 06/16/23 03:50 Chloride IVPB Infused Q12H PREMA Infusion Dextrose 1,000 mls @ 100 mls/hr 06/14/23 15:12 Dextrose 5% 1,000 Ml IVPB PRN PRN Hypoglycemia Protocol Lactobacillus Acidophilus 2 tablet 06/14/23 09:00 06/16/23 09:24 Acidophilus/Bulgaricus Chewable Tablet BY MOUTH 2 tablet DAILY PREMA Administration Levothyroxine Sodium 150 mcg 06/14/23 06:30 06/16/23 05:34 Levothyroxine Sodium 150 Mcg Tablet PO 150 mcg DAILY@0630 PREMA Administration Magnesium Oxide 400 mg 06/15/23 16:15 06/16/23 09:24 Magnesium Oxide 400 Mg Tablet PO 400 mg DAILY PREMA Administration Metoprolol Succinate 37.5 mg 06/14/23 09:00 06/16/23 09:23 Metoprolol Succinate Ext Rel 12.5 Mg Tabcr PO 37.5 mg DAILY PREMA Administration Miconazole Nitrate 1 applic 06/14/23 09:00 06/16/23 09:25 Miconazole 2% Antifungal Ointment 56 Gm TOPICAL 1 applic DAILY PREMA Administration Sodium Zirconium Cyclosilicate 10 gm 06/14/23 10:00 06/16/23 10:13 Sodium Zirconium Cyclosilicate 10 Gm Powd.Pack PO 10 gm DAILY@1000 PREMA Administration Tolnaftate 1 applic 06/15/23 21:00 06/16/23 09:25 Tolnaftate 1% Powder 45 Gm Btl TOPICAL 1 applic Q12HR PREMA Administration Tramadol HCl 50 mg 06/14/23 00:53 Tramadol Hcl (*Crx) 50 Mg Tablet PO QID PRN Pain Radiology Results: ITS Impressions Head CT 06/13/23 14:55 IMPRESSION: Given the history of gait disturbance, altered mental status and dilated ventricles, communicating hydrocephalus should be considered Cerebral atherosclerosis and chronic small vessel ischemic changes of the cerebral white matter Venous Doppler Study 06/13/23 14:59 IMPRESSION: 1. No deep venous thrombosis. Abdomen/Pelvis CT 06/13/23 15:00 IMPRESSION: 1. No acute intra-abdominal/pelvic process. 2. Small sliding-type hiatal hernia. Renal Ultrasound 06/14/23 18:07 IMPRESSION: Unremarkable renal sonogram findings. Echogenic liver, most commonly due to steatosis but also can be seen with hepatitis and fibrosis Labs Labs: Laboratory Results - last 24 hr 06/15/23 06/15/23 06/15/23 11:57 17:09 20:25 WBC RBC Hgb Hct MCV MCH MCHC RDW Plt Count MPV Immature Gran % (Auto) Neut % (Auto) Lymph % (Auto) [place] % (Auto) Eos % (Auto) Baso % (Auto) Lymph # (Auto) [place] # (Auto) Eos # (Auto) Baso # (Auto) Abs Immat Gran (auto) Absolute Neuts (auto) Absolute Nucleated RBC Nucleated RBC % Sodium Potassium Chloride Carbon Dioxide Anion Gap BUN Creatinine Estim Creat Clear Calc Estimated GFR Glucose POC Capillary Glucose 141 H 137 H 125 H Calcium Magnesium Total Bilirubin AST ALT Alkaline Phosphatase Total Protein Albumin 06/16/23 06/16/23 05:22 08:23 WBC 8.3 RBC 4.00 L Hgb 10.7 L Hct 34.2 L MCV 85.5 MCH 26.8 MCHC 31.3 L RDW 16.5 H Plt Count 328 MPV 10.9 H Immature Gran % (Auto) 0.4 Neut % (Auto) 65.2 Lymph % (Auto) 21.6 [place] % (Auto) 10.5 H Eos % (Auto) 1.5 Baso % (Auto) 0.8 Lymph # (Auto) 1.79 [place] # (Auto) 0.9 H Eos # (Auto) 0.1 Baso # (Auto) 0.1 Abs Immat Gran (auto) 0.03 Absolute Neuts (auto) 5.4 Absolute Nucleated RBC 0.000 Nucleated RBC % 0.0 Sodium 135 L Potassium 4.0 Chloride 106 Carbon Dioxide 22 Anion Gap 7 BUN 23 H Creatinine 1.40 H Estim Creat Clear Calc 33 Estimated GFR 37 L Glucose 107 POC Capillary Glucose 100 Calcium 9.4 Magnesium 1.6 Total Bilirubin 0.3 AST 21 ALT 9 Alkaline Phosphatase 54 Total Protein 6.0 L Albumin 2.9 L
[2023-06-16 12:36] LABS: Glucose Point of Care 106 mg/dl (65-105)
[2023-06-16] MEDS: MEROPENEM 1 GM/NS 100 ML 1 GM/100 ML BAG IVPB (17:01)
[2023-06-16 17:32] LABS: Glucose Point of Care 120 mg/dl (65-105)
[2023-06-17] VITALS (10 sets, daily range): BP systolic 115–151; BP diastolic 57–72; PULSE 88–130; RESP 18–20; TEMP 36.3–36.7; O2SAT 92–98
[2023-06-17] MEDS: MEROPENEM 1 GM/NS 100 ML 1 GM/100 ML BAG IVPB ×2 (03:59→16:53)
[2023-06-17] MEDS: LEVOTHYROXINE SODIUM 150 MCG TABLET PO (05:31)
[2023-06-17 06:12] LABS: Basophils Percent Auto 0.5 % (0.2-1.2); Eosinophils Absolute Auto 0.1 K/mm3 (0-0.3); Eosinophils Percent Auto 1.6 % (0-4.4); Hematocrit 35.7 % (37.0-47.0); Hemoglobin 10.9 g/dL (12.0-15.0); Immature Granulocyte Absolute 0.03 K/mm3 (0.00-0.031); Immature Granulocyte Percent A 0.4 % (0-0.5); Lymphocytes Absolute Auto 1.97 K/mm3 (0.9-3.2); Lymphocytes Percent Auto 25.9 % (18.3-44.2); Mean Corpuscular HGB Conc 30.5 g/dl (32-36); Mean Corpuscular Hemoglobin 26.5 pg (26-34); Mean Corpuscular Volume 86.9 fl (80-100); Mean Platelet Volume 11.1 fl (7.4-10.4); Monocytes Absolute Auto 0.9 K/mm3 (0.1-0.6); Neutrophils Absolute Auto 4.5 K/mm3 (1.3-6.7); Neutrophils Percent Auto 59.6 % (45.5-73.1); Platelet Count Result 342 k/mm3 (150-375); Red Blood Count 4.11 M/mm3 (4.2-5.4); Red Cell Distribution Width 16.4 % (11.5-14.5); White Blood Count 7.6 K/mm3 (4.5-10.0)
[2023-06-17 06:36] LABS: Alanine Aminotransferase 9 U/L (6-35); Alkaline Phosphatase 57 U/L (38-126); Anion Gap 4 mmol/L (4-12); Aspartate Amino Transferase 22 U/L (14-36); Bilirubin,Total 0.3 mg/dL (0.2-1.3); Blood Urea Nitrogen 17 mg/dL (7-17); Calcium 9.4 mg/dL (8.4-10.2); Carbon Dioxide 24 mmol/L (22-30); Chloride 107 mmol/L (98-107); Estimated CRCL calculation 42 ml/min; Estimated Glomerular Filt Rate 48; Glucose 93 mg/dL (65-110); Magnesium 1.7 mg/dL (1.6-2.3); Sodium 135 mmol/L (137-145)
--- NOTE | 2023-06-17 08:09 | P.PNIM_ITS ---
Progress Note: A&P Assessment and Plan (1) UTI (urinary tract infection): Qualifiers: Hematuria presence: without hematuria Urinary tract infection type: site unspecified Qualified Code(s): N39.0 - Urinary tract infection, site not specified Code(s): N39.0 - Urinary tract infection, site not specified Status: Acute (2) Acute kidney injury: Code(s): N17.9 - Acute kidney failure, unspecified Status: Acute (3) PHYLICIA on CPAP: Code(s): G47.33 - Obstructive sleep apnea (adult) (pediatric) Status: Acute (4) DM type 2 (diabetes mellitus, type 2): Qualifiers: Diabetes mellitus complication status: without complication 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 site unspecified? Qualified Code(s):?N39.0 - Urinary tract infection, site not specified ?Code(s): N39.0 - Urinary tract infection, site not specified ?Status:?Acute ?Assessment and Plan: UA grossly positive for UTI * Started on meropenem * IV fluids at 75 ml * Urine culture pending * Blood culture pending 06/14: * Urine culture is growing E coli.? Sensitivities pending. * Continue meropenem * Stopping IV fluids as her creatinine has decreased to 1.7 (baseline ranging 1.1-1.9) * She is eating and drinking appropriately * P.r.n. Tylenol as needed for mild pain or fever 06/15: * ESBL already on meropenem * Can increase dose to 1 gram q 12 per ID pharmacist * She needs two more days and then she is good to go to SNF 06/16: Patient is afebrile, blood pressure is stable blood culture no growth, continue meropenem today (2) Altered mental status: ?Qualifiers: ?Altered mental status type:?unspecified? Qualified Code(s):?R41.82 - Altered mental status, unspecified ?Code(s): R41.82 - Altered mental status, unspecified ?Status:?Acute ?Assessment and Plan: UTI versus hydrocephalus versus dementia * Family states she has been more confused over the last couple months * CT head shows dilated ventricles concerning for possible communicating hydrocephalus, cerebral arteriosclerosis and chronic small-vessel ischemic changes noted * Patient has recurrent urinary incontinence with weakness and impaired gait * Consulted neurology, recommendations appreciated * Reorientation as needed * Delirium precautions * Fall precaution 06/14: * Neurology discuss with family further workup of hydrocephalus including transfer [facility].? Family is in discussion over this. * EEG today * Patient remains oriented to self only 06/15: * Does not appear to be improving with resolution of her UTI * Outpatient neurosurgery consult at discharge (3) Acute kidney injury: ?Code(s): N17.9 - Acute kidney failure, unspecified ?Status:?Acute ?Assessment and Plan: Creatinine baseline appears to be 1.2-1.9 * Creatinine 2.7 on admission * NS at 75 ml * Holding lasix and lisinopril * Avoid nephrotoxic medications * Daily CMP 06/14: * Creatinine 1.7 * IV fluids discontinued * She is eating and drinking without issue 06/15: * Stable 06/16: Kidney function continue to improve, BUN 17, creatinine 1.1 today (4) Generalized weakness: ?Code(s): R53.1 - Weakness ?Status:?Acute ?Assessment and Plan: PT, OT consulted for assistance with placement recommendations. Family can no longer manage patient's care at home. 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 Qualified Code(s):?E11.9 - Type 2 diabetes mellitus without complications ?Code(s): E11.9 - Type 2 diabetes mellitus without complications ?Status:?Acute ?Assessment and Plan: Hgb A1C 6.4% on Farxiga at home * Held due to GFR * ACHS checks * hypoglycemic protocol PRN * Fasting labs less than 150 06/14: * Blood glucose ranging 114-141 (6) Essential hypertension: ?Code(s): I10 - Essential (primary) hypertension ?Status:?Acute ?Assessment and Plan: * Blood pressures are currently running low * Holding agents at this time * Q 8 hour VS 06/14: * Blood pressures reviewed * Continuing to hold antihypertensives(7) Diastolic congestive heart failure: ?Code(s): I50.30 - Unspecified diastolic (congestive) heart failure ?Status:?Acute ?Assessment and Plan: Gentle fluids at 75 ml per hour for NELSON 06/14: * Fluids DC today. Creatinine improving. (8) Diabetic leg ulcer: ?Code(s): E11.622 - Type 2 diabetes mellitus with other skin ulcer; L97.909 - Non-pressure chronic ulcer of unspecified part of unspecified lower leg with unspecified severity ?Status:?Acute ?Assessment and Plan: * Wound consult * Photos taken * Daily dressing changes 06/14: * Nystatin to skin folds to decrease moisture * Right lower posterior leg wound with daily wound changes * Right foot wound with daily changes * Coccyx wound with daily changes * Wound care orders were taken from recent home health notes. * Wound care will consult and see Friday and can make changes as they see fit. (9) PHYLICIA on CPAP: ?Code(s): G47.33 - Obstructive sleep apnea (adult) (pediatric) ?Status:?Acute ?Assessment and Plan: ?CPAP AT NIGHTTIME patient has dementia, general weakness, consult PT OT child care assistant for evaluation and assisting placement Subjective Date/time seen: 06/17/23 08:09 Interval history: I saw exam patient today, patient afebrile overnight, blood pressure stable, labs reviewed, white blood cell within normal limit, BUN creatinine are trending down. patient has general weakness, denies focal weakness, vision change, chest pain shortness of breath. Patient also denies abdomen pain, nausea vomiting diarrhea Exam Narrative: GENERAL: Pleasant, in no acute distress. Well-nourished. - EYES: EOMI. Anicteric. - HENT: Moist mucous membranes. - LUNGS: Clear to auscultation bilateral ly, no wheezing, rhonchi, or rales. - CARDIOVASCULAR: Regular rate and rhyth m. No murmur. No JVD. - ABDOMEN: Soft, non-tender and non-dist ended. No palpable masses. - EXTREMITIES: No edema. Peripheral puls es 2+. Non-tender. - NEUROLOGIC: No focal neurological defi cits. CN II-XII grossly intact. general weakness - PSYCHIATRIC: Awake, Alert and oriented to person. Appropriate mood and affect. - SKIN: No rashes or lesions. Warm. - LYMPH: No cervical lymphadenopathy. Objective Data Vital Signs Vital Signs: Vital Signs - 24 hr 06/16/23 09:23 06/16/23 12:00 06/16/23 14:00 Temperature 98.2 F Pulse Rate 121 H 83 100 Respiratory Rate 16 Blood Pressure 119/84 Pulse Oximetry 98 Oxygen Delivery 06/16/23 21:00 06/16/23 21:00 06/16/23 22:00 Temperature 98.6 F Pulse Rate 92 126 H 126 H Respiratory Rate 20 18 Blood Pressure 136/46 L Pulse Oximetry 97 97 Oxygen Delivery Room Air 06/17/23 00:00 06/17/23 04:00 06/17/23 06:00 Temperature 97.8 F Pulse Rate 88 101 H 119 H Respiratory Rate 18 Blood Pressure 150/57 H Pulse Oximetry 95 Oxygen Delivery Intake/Output Intake/Output: Intake & Output 06/14/23 06/15/23 06/16/23 06/17/23 23:59 23:59 23:59 23:59 Intake Total 1380 2700 1420 240 Output Total 1200 0 Balance 1380 2700 220 240 Meds/Results Medications: Active Medications Generic Name Dose Route Start Last Admin Trade Name Freq PRN Reason Stop Dose Admin Acetaminophen 650 mg 06/15/23 16:07 Acetaminophen 325 Mg Tablet PO Q4H PRN Mild Pain (1-3) or Fever Cilostazol 100 mg 06/14/23 08:00 06/16/23 16:35 Cilostazol 100 Mg Tablet PO Not Given BIDWM [facility] Dextrose 12.5 gm 06/14/23 15:12 Dextrose 50% 25 Gm/50 Ml Syringe IV PUSH PRN PRN Hypoglycemia Protocol Enoxaparin Sodium 40 mg 06/16/23 09:00 06/16/23 09:25 Enoxaparin 40 Mg/0.4 Ml Syringe SUB-Q 40 mg DAILY PREMA Administration Glucagon 1 mg 06/14/23 15:12 Glucagon For Inj 1 Mg Vial IM PRN PRN Hypoglycemia Protocol Glucose 15 gm 06/14/23 15:12 Glucose Oral Gel 15 Gm Of Glucse In 37.5 Gm Tube PO PRN PRN Hypoglycemia Protocol Dextrose 1,000 mls @ 100 mls/hr 06/14/23 15:12 Dextrose 5% 1,000 Ml IVPB PRN PRN Hypoglycemia Protocol Meropenem 1 gm in 100 mls @ 200 mls/hr 06/16/23 16:00 06/17/23 03:59 IVPB 06/18/23 23:59 200 mls/hr Q12H PREMA Administration Lactobacillus Acidophilus 2 tablet 06/14/23 09:00 06/16/23 09:24 Acidophilus/Bulgaricus Chewable Tablet BY MOUTH 2 tablet DAILY PREMA Administration Levothyroxine Sodium 150 mcg 06/14/23 06:30 06/17/23 05:31 Levothyroxine Sodium 150 Mcg Tablet PO 150 mcg DAILY@0630 PREMA Administration Magnesium Oxide 400 mg 06/15/23 16:15 06/16/23 09:24 Magnesium Oxide 400 Mg Tablet PO 400 mg DAILY PREMA Administration Metoprolol Succinate 37.5 mg 06/14/23 09:00 06/16/23 09:23 Metoprolol Succinate Ext Rel 12.5 Mg Tabcr PO 37.5 mg DAILY PREMA Administration Miconazole Nitrate 1 applic 06/14/23 09:00 06/16/23 09:25 Miconazole 2% Antifungal Ointment 56 Gm TOPICAL 1 applic DAILY [facility] Administration Ondansetron HCl 4 mg 06/16/23 14:45 Ondansetron Inj 4 Mg/2 Ml Vial IV PUSH Q4H PRN Nausea And Vomiting Sodium Zirconium Cyclosilicate 10 gm 06/14/23 10:00 06/16/23 10:13 Sodium Zirconium Cyclosilicate 10 Gm Powd.Pack PO 10 gm DAILY@1000 [facility] Administration Tolnaftate 1 applic 06/15/23 21:00 06/17/23 01:13 Tolnaftate 1% Powder 45 Gm Btl TOPICAL Not Given Q12HR [facility] Tramadol HCl 50 mg 06/14/23 00:53 Tramadol Hcl (*Crx) 50 Mg Tablet PO QID PRN Pain Radiology Results: ITS Impressions Head CT 06/13/23 14:55 IMPRESSION: Given the history of gait disturbance, altered mental status and dilated ventricles, communicating hydrocephalus should be considered Cerebral atherosclerosis and chronic small vessel ischemic changes of the cerebral white matter Venous Doppler Study 06/13/23 14:59 IMPRESSION: 1. No deep venous thrombosis. Abdomen/Pelvis CT 06/13/23 15:00 IMPRESSION: 1. No acute intra-abdominal/pelvic process. 2. Small sliding-type hiatal hernia. Renal Ultrasound 06/14/23 18:07 IMPRESSION: Unremarkable renal sonogram findings. Echogenic liver, most commonly due to steatosis but also can be seen with hepatitis and fibrosis Labs Labs: Laboratory Results - last 24 hr 06/16/23 06/16/23 06/16/23 08:23 12:30 17:28 WBC RBC Hgb Hct MCV MCH MCHC RDW Plt Count MPV Immature Gran % (Auto) Neut % (Auto) Lymph % (Auto) Craig % (Auto) Eos % (Auto) Baso % (Auto) Lymph # (Auto) Craig # (Auto) Eos # (Auto) Baso # (Auto) Abs Immat Gran (auto) Absolute Neuts (auto) Absolute Nucleated RBC Nucleated RBC % Sodium Potassium Chloride Carbon Dioxide Anion Gap BUN Creatinine Estim Creat Clear Calc Estimated GFR Glucose POC Capillary Glucose 100 106 H 120 H Calcium Magnesium Total Bilirubin AST ALT Alkaline Phosphatase Total Protein Albumin 06/17/23 05:15 WBC 7.6 RBC 4.11 L Hgb 10.9 L Hct 35.7 L MCV 86.9 MCH 26.5 MCHC 30.5 L RDW 16.4 H Plt Count 342 MPV 11.1 H Immature Gran % (Auto) 0.4 Neut % (Auto) 59.6 Lymph % (Auto) 25.9 Craig % (Auto) 12.0 H Eos % (Auto) 1.6 Baso % (Auto) 0.5 Lymph # (Auto) 1.97 Craig # (Auto) 0.9 H Eos # (Auto) 0.1 Baso # (Auto) 0.0 Abs Immat Gran (auto) 0.03 Absolute Neuts (auto) 4.5 Absolute Nucleated RBC 0.000 Nucleated RBC % 0.0 Sodium 135 L Potassium 4.0 Chloride 107 Carbon Dioxide 24 Anion Gap 4 BUN 17 Creatinine 1.10 H Estim Creat Clear Calc 42 Estimated GFR 48 L Glucose 93 POC Capillary Glucose Calcium 9.4 Magnesium 1.7 Total Bilirubin 0.3 AST 22 ALT 9 Alkaline Phosphatase 57 Total Protein 7.0 Albumin 3.0 L
[2023-06-17 08:33] LABS: Glucose Point of Care 94 mg/dl (65-105)
[2023-06-17] MEDS: METOPROLOL SUCCINATE EXT REL 12.5 MG TABCR 37.5 MG PO (09:01)
[2023-06-17] MEDS: MAGNESIUM OXIDE 400 MG TABLET PO (09:03)
[2023-06-17] MEDS: cilostazoL 100 MG TABLET PO ×2 (09:04→16:53)
[2023-06-17] MEDS: ENOXAPARIN 40 MG/0.4 ML SYRINGE SUB-Q (09:04)
[2023-06-17] MEDS: ACIDOPHILUS/BULGARICUS CHEWABLE TABLET 2 TABLET BY MOUTH (09:06)
[2023-06-17] MEDS: TOLNAFTATE 1% POWDER 45 GM BTL 1 APPLIC TOPICAL ×2 (09:14→20:16)
[2023-06-17] MEDS: SODIUM ZIRCONIUM CYCLOSILICATE 10 GM POWD.PACK PO (11:18)
[2023-06-17 12:09] LABS: Glucose Point of Care 154 mg/dl (65-105)
[2023-06-17 17:12] LABS: Glucose Point of Care 134 mg/dl (65-105)
[2023-06-17 20:23] LABS: Glucose Point of Care 156 mg/dl (65-105)
[2023-06-18] VITALS (11 sets, daily range): BP systolic 110–152; BP diastolic 57–84; PULSE 95–117; RESP 16–18; TEMP 36.4–37; O2SAT 94–98
[2023-06-18] MEDS: MEROPENEM 1 GM/NS 100 ML 1 GM/100 ML BAG IVPB ×2 (03:49→16:51)
[2023-06-18] MEDS: LEVOTHYROXINE SODIUM 150 MCG TABLET PO (05:27)
[2023-06-18 05:33] LABS: Basophils Absolute Auto 0.1 K/mm3 (0.0-0.1); Basophils Percent Auto 0.8 % (0.2-1.2); Eosinophils Absolute Auto 0.1 K/mm3 (0-0.3); Eosinophils Percent Auto 1.5 % (0-4.4); Hematocrit 35.5 % (37.0-47.0); Hemoglobin 11.2 g/dL (12.0-15.0); Immature Granulocyte Absolute 0.03 K/mm3 (0.00-0.031); Immature Granulocyte Percent A 0.4 % (0-0.5); Lymphocytes Absolute Auto 1.78 K/mm3 (0.9-3.2); Lymphocytes Percent Auto 22.4 % (18.3-44.2); Mean Corpuscular HGB Conc 31.5 g/dl (32-36); Mean Corpuscular Hemoglobin 26.7 pg (26-34); Mean Corpuscular Volume 84.7 fl (80-100); Mean Platelet Volume 10.8 fl (7.4-10.4); Monocytes Percent Auto 12.3 % (2.6-8.5); Neutrophils Percent Auto 62.6 % (45.5-73.1); Platelet Count Result 346 k/mm3 (150-375); Red Blood Count 4.19 M/mm3 (4.2-5.4); Red Cell Distribution Width 16.3 % (11.5-14.5)
[2023-06-18 05:47] LABS: Alanine Aminotransferase 10 U/L (6-35); Albumin Level 3.2 g/dL (3.5-5.1); Alkaline Phosphatase 60 U/L (38-126); Anion Gap 4 mmol/L (4-12); Aspartate Amino Transferase 40 U/L (14-36); Bilirubin,Total 0.4 mg/dL (0.2-1.3); Blood Urea Nitrogen 15 mg/dL (7-17); Calcium 9.5 mg/dL (8.4-10.2); Carbon Dioxide 26 mmol/L (22-30); Chloride 105 mmol/L (98-107); Estimated CRCL calculation 42 ml/min; Estimated Glomerular Filt Rate 48; Glucose 105 mg/dL (65-110); Magnesium 1.6 mg/dL (1.6-2.3); Potassium 4.1 mmol/L (3.4-5.0); Sodium 135 mmol/L (137-145)
[2023-06-18 09:03] LABS: Glucose Point of Care 127 mg/dl (65-105)
[2023-06-18] MEDS: ENOXAPARIN 40 MG/0.4 ML SYRINGE SUB-Q (09:04)
[2023-06-18] MEDS: MAGNESIUM OXIDE 400 MG TABLET PO (09:04)
[2023-06-18] MEDS: METOPROLOL SUCCINATE EXT REL 12.5 MG TABCR 37.5 MG PO (09:04)
[2023-06-18] MEDS: SODIUM ZIRCONIUM CYCLOSILICATE 10 GM POWD.PACK PO (09:06)
[2023-06-18] MEDS: TOLNAFTATE 1% POWDER 45 GM BTL 1 APPLIC TOPICAL ×2 (09:07→20:11)
[2023-06-18] MEDS: cilostazoL 100 MG TABLET PO ×2 (09:16→16:50)
[2023-06-18] MEDS: ACIDOPHILUS/BULGARICUS CHEWABLE TABLET 2 TABLET BY MOUTH (09:16)
--- NOTE | 2023-06-18 12:09 | P.PNIM_ITS ---
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 site unspecified? Qualified Code(s):?N39.0 - Urinary tract infection, site not specified ?Code(s): N39.0 - Urinary tract infection, site not specified ?Status:?Acute ?Assessment and Plan: UA grossly positive for UTI * Started on meropenem * IV fluids at 75 ml * Urine culture pending * Blood culture pending 06/14: * Urine culture is growing E coli.? Sensitivities pending. * Continue meropenem * Stopping IV fluids as her creatinine has decreased to 1.7 (baseline ranging 1.1-1.9) * She is eating and drinking appropriately * P.r.n. Tylenol as needed for mild pain or fever 06/15: * ESBL already on meropenem * Can increase dose to 1 gram q 12 per ID pharmacist * She needs two more days and then she is good to go to SNF 06/16: Patient is afebrile, blood pressure is stable blood culture no growth, continue meropenem today 06/17: Continue meropenem pending SNF placement (2) Altered mental status: ?Qualifiers: ?Altered mental status type:?unspecified? Qualified Code(s):?R41.82 - Altered mental status, unspecified ?Code(s): R41.82 - Altered mental status, unspecified ?Status:?Acute ?Assessment and Plan: UTI versus hydrocephalus versus dementia * Family states she has been more confused over the last couple months * CT head shows dilated ventricles concerning for possible communicating hydrocephalus, cerebral arteriosclerosis and chronic small-vessel ischemic changes noted * Patient has recurrent urinary incontinence with weakness and impaired gait * Consulted neurology, recommendations appreciated * Reorientation as needed * Delirium precautions * Fall precaution 06/14: * Neurology discuss with family further workup of hydrocephalus including transfer to tertiary [facility] for cisternogram.? Family is in discussion over this. * EEG today * Patient remains oriented to self only 06/15: * Does not appear to be improving with resolution of her UTI * Outpatient neurosurgery consult at discharge (3) Acute kidney injury: ?Code(s): N17.9 - Acute kidney failure, unspecified ?Status:?Acute ?Assessment and Plan: Creatinine baseline appears to be 1.2-1.9 * Creatinine 2.7 on admission * NS at 75 ml * Holding lasix and lisinopril * Avoid nephrotoxic medications * Daily CMP 06/14: * Creatinine 1.7 * IV fluids discontinued * She is eating and drinking without issue 06/15: * Stable 06/16: Kidney function continue to improve, BUN 17, creatinine 1.1 today 06/17: Stable and improving (4) Generalized weakness: ?Code(s): R53.1 - Weakness ?Status:?Acute ?Assessment and Plan: PT, OT consulted for assistance with placement recommendations. Family can no longer manage patient's care at home. 06/14: * Up in a chair * PT evaluated this afternoon and is recommending SNF(5) DM type 2 (diabetes mellitus, type 2): ?Qualifiers: ?Diabetes mellitus complication status:?without complication??Diabetes mellitus watermaster insulin use:?unspecified chcf insulin use status? Qualified Code(s):?E11.9 - Type 2 diabetes mellitus without complications ?Code(s): E11.9 - Type 2 diabetes mellitus without complications ?Status:?Acute ?Assessment and Plan: Hgb A1C 6.4% on Farxiga at home * Held due to GFR * ACHS checks * hypoglycemic protocol PRN * Fasting labs less than 150 06/14: * Blood glucose ranging 114-141 (6) Essential hypertension: ?Code(s): I10 - Essential (primary) hypertension ?Status:?Acute ?Assessment and Plan: * Blood pressures are currently running low * Holding agents at this time * Q 8 hour VS 06/14: * Blood pressures reviewed * Continuing to hold antihypertensives(7) Diastolic congestive heart failure: ?Code(s): I50.30 - Unspecified diastolic (congestive) heart failure ?Status:?Acute ?Assessment and Plan: Gentle fluids at 75 ml per hour for NELSON 06/14: * Fluids DC today. Creatinine improving. (8) Diabetic leg ulcer: ?Code(s): E11.622 - Type 2 diabetes mellitus with other skin ulcer; L97.909 - Non-pressure chronic ulcer of unspecified part of unspecified lower leg with unspecified s everity ?Status:?Acute ?Assessment and Plan: * Wound consult * Photos taken * Daily dressing changes 06/14: * Nystatin to skin folds to decrease moisture * Right lower posterior leg wound with daily wound changes * Right foot wound with daily changes * Coccyx wound with daily changes * Wound care orders were taken from recent home health notes. * Wound care will consult and see Friday and can make changes as they see fit. (9) PHYLICIA on CPAP: ?Code(s): G47.33 - Obstructive sleep apnea (adult) (pediatric) ?Status:?Acute ?Assessment and Plan: ?CPAP AT NIGHTTIME 06/17: Pending SNF placement/insurance auth Time Spent With Patient Time with patient: Greater than 35 minutes Subjective Date/time seen: 06/18/23 12:09 Interval history: I saw exam patient today, patient afebrile overnight, blood pressure stable, labs reviewed, white blood cell within normal limit, BUN creatinine are trending down. Patient has general weakness, denies focal weakness, vision change, chest pain shortness of breath. Patient also denies abdomen pain, nausea vomiting diarrhea. Patient seems to be confused about plan going forward but card reader at bedside understands we are awaiting SNF placement with plan for to be scheduled neuro surgery clinic follow-up for possible further invest igation looking for normal pressure hydrocephalus. Review of Systems Review of Systems: ROS unobtainable: Yes unobtainable due to mental status ( CONFUSED) Exam Narrative: GENERAL: Pleasant, in no acute distress. Well-nourished. - EYES: EOMI. Anicteric. - HENT: Moist mucous membranes. - LUNGS: Clear to auscultation bilateral ly, no wheezing, rhonchi, or rales. - CARDIOVASCULAR: Mildly tachycardic ra te and consistent rhythm. No murmur. No JVD. - ABDOMEN: Soft, non-tender and non-dist ended. No palpable masses. - EXTREMITIES: No edema. Peripheral puls es 2+. Non-tender. - NEUROLOGIC: No focal neurological defi cits. CN II-XII grossly intact. General weakness - PSYCHIATRIC: Awake, Alert and oriented to person. Appropriate mood and affect. - SKIN: No rashes or lesions. Warm. - LYMPH: No cervical lymphadenopathy. Objective Data Vital Signs Vital Signs: Vital Signs - 24 hr 06/17/23 14:00 06/17/23 16:00 06/17/23 19:53 Temperature 36.7 C 36.3 C L Pulse Rate 120 H 130 H 100 Respiratory Rate 18 20 Blood Pressure 115/70 151/72 H Pulse Oximetry 92 98 Oxygen Delivery 06/17/23 20:00 06/17/23 20:00 06/18/23 00:00 Temperature Pulse Rate 101 H 101 H Respiratory Rate Blood Pressure Pulse Oximetry Oxygen Delivery Room Air 06/18/23 04:00 06/18/23 04:00 06/18/23 09:04 Temperature 36.4 C L Pulse Rate 104 H 112 H 107 H Respiratory Rate 18 Blood Pressure 141/57 H Pulse Oximetry 96 Oxygen Delivery 06/18/23 08:00 Temperature Pulse Rate Respiratory Rate Blood Pressure Pulse Oximetry Oxygen Delivery Room Air Intake/Output Intake/Output: Intake & Output 06/15/23 06/16/23 06/17/23 06/18/23 23:59 23:59 23:59 23:59 Intake Total 2700 1420 1640 580 Output Total 1200 100 Balance 2700 220 1540 580 Meds/Results Medications: Active Medications Generic Name Dose Route Start Last Admin Trade Name Freq PRN Reason Stop Dose Admin Acetaminophen 650 mg 06/15/23 16:07 Acetaminophen 325 Mg Tablet PO Q4H PRN Mild Pain (1-3) or Fever Cilostazol 100 mg 06/14/23 08:00 06/18/23 09:16 Cilostazol 100 Mg Tablet PO 100 mg BIDWM PREMA Administration Dextrose 12.5 gm 06/14/23 15:12 Dextrose 50% 25 Gm/50 Ml Syringe IV PUSH PRN PRN Hypoglycemia Protocol Enoxaparin Sodium 40 mg 06/16/23 09:00 06/18/23 09:04 Enoxaparin 40 Mg/0.4 Ml Syringe SUB-Q 40 mg DAILY PREMA Administration Glucagon 1 mg 06/14/23 15:12 Glucagon For Inj 1 Mg Vial IM PRN PRN Hypoglycemia Protocol Glucose 15 gm 06/14/23 15:12 Glucose Oral Gel 15 Gm Of Glucse In 37.5 Gm Tube PO PRN PRN Hypoglycemia Protocol Dextrose 1,000 mls @ 100 mls/hr 06/14/23 15:12 Dextrose 5% 1,000 Ml IVPB PRN PRN Hypoglycemia Protocol Meropenem 1 gm in 100 mls @ 200 mls/hr 06/16/23 16:00 06/18/23 04:19 IVPB 06/18/23 23:59 Infused Q12H PREMA Infusion Lactobacillus Acidophilus 2 tablet 06/14/23 09:00 06/18/23 09:16 Acidophilus/Bulgaricus Chewable Tablet BY MOUTH 2 tablet DAILY PREMA Administration Levothyroxine Sodium 150 mcg 06/14/23 06:30 06/18/23 05:27 Levothyroxine Sodium 150 Mcg Tablet PO 150 mcg DAILY@0630 PREMA Administration Magnesium Oxide 400 mg 06/15/23 16:15 06/18/23 09:04 Magnesium Oxide 400 Mg Tablet PO 400 mg DAILY PREMA Administration Metoprolol Succinate 37.5 mg 06/14/23 09:00 06/18/23 09:04 Metoprolol Succinate Ext Rel 12.5 Mg Tabcr PO 37.5 mg DAILY PREMA Administration Miconazole Nitrate 1 applic 06/14/23 09:00 06/18/23 09:17 Miconazole 2% Antifungal Ointment 56 Gm TOPICAL 1 applic DAILY PREMA Administration Ondansetron HCl 4 mg 06/16/23 14:45 Ondansetron Inj 4 Mg/2 Ml Vial IV PUSH Q4H PRN Nausea And Vomiting Sodium Zirconium Cyclosilicate 10 gm 06/14/23 10:00 06/18/23 09:06 Sodium Zirconium Cyclosilicate 10 Gm Powd.Pack PO 10 gm DAILY@1000 PREMA Administration Tolnaftate 1 applic 06/15/23 21:00 06/18/23 09:07 Tolnaftate 1% Powder 45 Gm Btl TOPICAL 1 applic Q12HR PREMA Administration Tramadol HCl 50 mg 06/14/23 00:53 Tramadol Hcl (*Crx) 50 Mg Tablet PO QID PRN Pain Radiology Results: ITS Impressions Head CT 06/13/23 14:55 IMPRESSION: Given the history of gait disturbance, altered mental status and dilated ventricles, communicating hydrocephalus should be considered Cerebral atherosclerosis and chronic small vessel ischemic changes of the cerebral white matter Venous Doppler Study 06/13/23 14:59 IMPRESSION: 1. No deep venous thrombosis. Abdomen/Pelvis CT 06/13/23 15:00 IMPRESSION: 1. No acute intra-abdominal/pelvic process. 2. Small sliding-type hiatal hernia. Renal Ultrasound 06/14/23 18:07 IMPRESSION: Unremarkable renal sonogram findings. Echogenic liver, most commonly due to steatosis but also can be seen with hepatitis and fibrosis Labs Labs: Laboratory Results - last 24 hr 06/17/23 06/17/23 06/17/23 11:51 17:05 20:15 WBC RBC Hgb Hct MCV MCH MCHC RDW Plt Count MPV Immature Gran % (Auto) Neut % (Auto) Lymph % (Auto) Starr % (Auto) Eos % (Auto) Baso % (Auto) Lymph # (Auto) Starr # (Auto) Eos # (Auto) Baso # (Auto) Abs Immat Gran (auto) Absolute Neuts (auto) Absolute Nucleated RBC Nucleated RBC % Sodium Potassium Chloride Carbon Dioxide Anion Gap BUN Creatinine Estim Creat Clear Calc Estimated GFR Glucose POC Capillary Glucose 154 H 134 H 156 H Calcium Magnesium Total Bilirubin AST ALT Alkaline Phosphatase Total Protein Albumin 06/18/23 06/18/23 05:06 08:56 WBC 8.0 RBC 4.19 L Hgb 11.2 L Hct 35.5 L MCV 84.7 MCH 26.7 MCHC 31.5 L RDW 16.3 H Plt Count 346 MPV 10.8 H Immature Gran % (Auto) 0.4 Neut % (Auto) 62.6 Lymph % (Auto) 22.4 Starr % (Auto) 12.3 H Eos % (Auto) 1.5 Baso % (Auto) 0.8 Lymph # (Auto) 1.78 Starr # (Auto) 1.0 H Eos # (Auto) 0.1 Baso # (Auto) 0.1 Abs Immat Gran (auto) 0.03 Absolute Neuts (auto) 5.0 Absolute Nucleated RBC 0.000 Nucleated RBC % 0.0 Sodium 135 L Potassium 4.1 Chloride 105 Carbon Dioxide 26 Anion Gap 4 BUN 15 Creatinine 1.10 H Estim Creat Clear Calc 42 Estimated GFR 48 L Glucose 105 POC Capillary Glucose 127 H Calcium 9.5 Magnesium 1.6 Total Bilirubin 0.4 AST 40 H ALT 10 Alkaline Phosphatase 60 Total Protein 7.0 Albumin 3.2 L Pulse Oximetry SpO2 results: 94-96% on room air Attestation: I personally reviewed and interpreted this pulse oximetry as follows: Interpretation: No need for supplemental oxygenation at this time Quality VTE Prophylaxis VTE prophylaxis: pharmacologic ordered
[2023-06-18 12:17] LABS: Glucose Point of Care 122 mg/dl (65-105)
[2023-06-18] MEDS: METOPROLOL TARTRATE 25 MG TABLET PO (12:43)
[2023-06-18] MEDS: ALPRAZolam (*CRX) 0.25 MG TABLET PO (16:50)
--- NOTE | 2023-06-18 16:56 | PC.NURSE ---
Pt refusing to let this nurse do her dressing change. Pt very confused at this time and wants to go home to see her parents. Pt unable to be re-oriented. Hospitalist aware.
[2023-06-18 17:06] LABS: Glucose Point of Care 132 mg/dl (65-105)
[2023-06-18 20:38] LABS: Glucose Point of Care 118 mg/dl (65-105)
[2023-06-19] VITALS (8 sets, daily range): BP systolic 118–138; BP diastolic 6–79; PULSE 81–113; RESP 16–18; TEMP 36.2–36.6; O2SAT 96–98
[2023-06-19] MEDS: MEROPENEM 1 GM/NS 100 ML 1 GM/100 ML BAG IVPB ×2 (03:47→18:02)
[2023-06-19] MEDS: LEVOTHYROXINE SODIUM 150 MCG TABLET PO (06:03)
[2023-06-19 06:14] LABS: Basophils Absolute Auto 0.1 K/mm3 (0.0-0.1); Basophils Percent Auto 0.7 % (0.2-1.2); Eosinophils Absolute Auto 0.2 K/mm3 (0-0.3); Eosinophils Percent Auto 2.1 % (0-4.4); Hematocrit 33.8 % (37.0-47.0); Hemoglobin 10.6 g/dL (12.0-15.0); Immature Granulocyte Absolute 0.02 K/mm3 (0.00-0.031); Immature Granulocyte Percent A 0.3 % (0-0.5); Lymphocytes Absolute Auto 1.82 K/mm3 (0.9-3.2); Lymphocytes Percent Auto 25.4 % (18.3-44.2); Mean Corpuscular HGB Conc 31.4 g/dl (32-36); Mean Corpuscular Hemoglobin 26.6 pg (26-34); Mean Corpuscular Volume 84.9 fl (80-100); Monocytes Absolute Auto 0.9 K/mm3 (0.1-0.6); Monocytes Percent Auto 13.1 % (2.6-8.5); Neutrophils Absolute Auto 4.2 K/mm3 (1.3-6.7); Neutrophils Percent Auto 58.4 % (45.5-73.1); Platelet Count Result 339 k/mm3 (150-375); Red Blood Count 3.98 M/mm3 (4.2-5.4); Red Cell Distribution Width 16.1 % (11.5-14.5); White Blood Count 7.2 K/mm3 (4.5-10.0)
[2023-06-19 06:27] LABS: Alanine Aminotransferase 10 U/L (6-35); Alkaline Phosphatase 59 U/L (38-126); Anion Gap 6 mmol/L (4-12); Aspartate Amino Transferase 25 U/L (14-36); Bilirubin,Total 0.5 mg/dL (0.2-1.3); Blood Urea Nitrogen 15 mg/dL (7-17); Calcium 9.5 mg/dL (8.4-10.2); Carbon Dioxide 24 mmol/L (22-30); Chloride 106 mmol/L (98-107); Estimated CRCL calculation 45 ml/min; Estimated Glomerular Filt Rate 54; Glucose 102 mg/dL (65-110); Magnesium 1.8 mg/dL (1.6-2.3); Potassium 3.7 mmol/L (3.4-5.0); Sodium 136 mmol/L (137-145)
[2023-06-19] MEDS: TOLNAFTATE 1% POWDER 45 GM BTL 1 APPLIC TOPICAL ×2 (08:30→20:12)
[2023-06-19] MEDS: cilostazoL 100 MG TABLET PO ×2 (08:30→18:02)
[2023-06-19] MEDS: ACIDOPHILUS/BULGARICUS CHEWABLE TABLET 2 TABLET BY MOUTH (08:30)
[2023-06-19] MEDS: ENOXAPARIN 40 MG/0.4 ML SYRINGE SUB-Q (08:30)
[2023-06-19] MEDS: MAGNESIUM OXIDE 400 MG TABLET PO (08:30)
[2023-06-19] MEDS: METOPROLOL SUCCINATE EXT REL 25 MG TABCR 75 MG PO (08:31)
[2023-06-19 08:41] LABS: Glucose Point of Care 104 mg/dl (65-105)
[2023-06-19 12:01] LABS: Glucose Point of Care 115 mg/dl (65-105)
--- NOTE | 2023-06-19 13:25 | P.PNIM_ITS ---
Progress Note: A&P Assessment and Plan (1) UTI (urinary tract infection): Qualifiers: Urinary tract infection type: site unspecified Hematuria presence: without hematuria Qualified Code(s): N39.0 - Urinary tract infection, site not specified Code(s): N39.0 - Urinary tract infection, site not specified Status: Acute (2) Acute kidney injury: Code(s): N17.9 - Acute kidney failure, unspecified Status: Acute (3) PHYLICIA on CPAP: Code(s): G47.33 - Obstructive sleep apnea (adult) (pediatric) Status: Acute (4) DM type 2 (diabetes mellitus, type 2): Qualifiers: Diabetes mellitus shaft sinker insulin use: unspecified alf insulin use status Diabetes mellitus complication status: without complication Qualified Code(s): E11.9 - Type 2 diabetes mellitus without complications Code(s): E11.9 - Type 2 diabetes mellitus without complications Status: Acute Plan (1) UTI (urinary tract infection): ?Qualifiers: ?Hematuria presence:?without hematuria??Urinary tract infection type:? site unspecified? Qualified Code(s):?N39.0 - Urinary tract infection, site not specified ?Code(s): N39.0 - Urinary tract infection, site not specified ?Status:?Acute ?Assessment and Plan: UA grossly positive for UTI * Started on meropenem * IV fluids at 75 ml * Urine culture pending * Blood culture pending 06/14: * Urine culture is growing E coli.? Sensitivities pending. * Continue meropenem * Stopping IV fluids as her creatinine has decreased to 1.7 (baseline ranging 1.1-1.9) * She is eating and drinking appropriately * P.r.n. Tylenol as needed for mild pain or fever 06/15: * ESBL already on meropenem * Can increase dose to 1 gram q 12 per ID pharmacist * She needs two more days and then she is good to go to SNF 06/16: Patient is afebrile, blood pressure is stable blood culture no growth, continue meropenem today 06/17: Continue meropenem pending SNF placement (2) Altered mental status: ?Qualifiers: ?Altered mental status type:?unspecified? Qualified Code(s):?R41.82 - Altered mental status, unspecified ?Code(s): R41.82 - Altered mental status, unspecified ?Status:?Acute ?Assessment and Plan: UTI versus hydrocephalus versus dementia * Family states she has been more confused over the last couple months * CT head shows dilated ventricles concerning for possible communicating hydrocephalus, cerebral arteriosclerosis and chronic small-vessel ischemic changes noted * Patient has recurrent urinary incontinence with weakness and impaired gait * Consulted neurology, recommendations appreciated * Reorientation as needed * Delirium precautions * Fall precaution 06/14: * Neurology discuss with family further workup of hydrocephalus including transfer to tertiary [facility] for cisternogram.? Family is in discussion over this. * EEG today * Patient remains oriented to self only 06/15: * Does not appear to be improving with resolution of her UTI * Outpatient neurosurgery consult at discharge 06/18: Significant sundowning symptoms. Ordered p.r.n. low-dose alprazolam for agitation. Considered Seroquel but it is QT prolonging (3) Acute kidney injury: ?Code(s): N17.9 - Acute kidney failure, unspecified ?Status:?Acute ?Assessment and Plan: Creatinine baseline appears to be 1.2-1.9 * Creatinine 2.7 on admission * NS at 75 ml * Holding lasix and lisinopril * Avoid nephrotoxic medications * Daily CMP 06/14: * Creatinine 1.7 * IV fluids discontinued * She is eating and drinking without issue 06/15: * Stable 06/16: Kidney function continue to improve, BUN 17, creatinine 1.1 today 06/17: Stable and improving (4) Generalized weakness: ?Code(s): R53.1 - Weakness ?Status:?Acute ?Assessment and Plan: PT, OT consulted for assistance with placement recommendations. Family can no longer manage patient's care at home. 06/14: * Up in a chair * PT evaluated this afternoon and is recommending SNF(5) DM type 2 (diabetes mellitus, type 2): ?Qualifiers: ?Diabetes mellitus complication status:?without complication??Diabetes mellitus shaft sinker insulin use:?unspecified alf insulin use status? Qualified Code(s):?E11.9 - Type 2 diabetes mellitus without complications ?Code(s): E11.9 - Type 2 diabetes mellitus without complications ?Status:?Acute ?Assessment and Plan: Hgb A1C 6.4% on Farxiga at home * Held due to GFR * ACHS checks * hypoglycemic protocol PRN * Fasting labs less than 150 06/14: * Blood glucose ranging 114-141 (6) Essential hypertension: ?Code(s): I10 - Essential (primary) hypertension ?Status:?Acute ?Assessment and Plan: * Blood pressures are currently running low * Holding agents at this time * Q 8 hour VS 06/14: * Blood pressures reviewed * Continuing to hold antihypertensives(7) Diastolic congestive heart failure: ?Code(s): I50.30 - Unspecified diastolic (congestive) heart failure ?Status:?Acute ?Assessment and Plan: Gentle fluids at 75 ml per hour for NELSON 06/14: * Fluids DC today. Creatinine improving. (8) Diabetic leg ulcer: ?Code(s): E11.622 - Type 2 diabetes mellitus with other skin ulcer; L97.909 - Non-pressure chronic ulcer of unspecified part of unspecified lower leg with unspecified severity ?Status:?Acute ?Assessment and Plan: * Wound consult * Photos taken * Daily dressing changes 06/14: * Nystatin to skin folds to decrease moisture * Right lower posterior leg wound with daily wound changes * Right foot wound with daily changes * Coccyx wound with daily changes * Wound care orders were taken from recent home health notes. * Wound care will consult and see Friday and can make changes as they see fit. 06/18: * Patient fighting nursing staff about changing dressing (9) PHYLICIA on CPAP: ?Code(s): G47.33 - Obstructive sleep apnea (adult) (pediatric) ?Status:?Acute ?Assessment and Plan: ?CPAP AT NIGHTTIME 06/17: Pending SNF placement/insurance auth 06/18: Anticipated SNF discharge tomorrow Time Spent With Patient Time with patient: 25 - 35 minutes Subjective Date/time seen: 06/19/23 13:25 Interval history: No family present at bedside during white patient evaluation. Patient still exhibits confusion and has been exhibiting sundowning symptoms starting in the early afternoon. We will attempt to give low-dose alprazolam to help prevent patient fighting against staff. Anticipated discharge tomorrow to SNF. Review of Systems Review of Systems: ROS unobtainable: Yes unobtainable due to mental status Exam Narrative: GENERAL: Pleasant, in no acute distress. Well-nourished. - EYES: EOMI. Anicteric. - HENT: Moist mucous membranes. - LUNGS: Clear to auscultation bilateral ly, no wheezing, rhonchi, or rales. - CARDIOVASCULAR: Mildly tachycardic ra te and consistent rhythm. No murmur. No JVD. - ABDOMEN: Soft, non-tender and non-dist ended. No palpable masses. - EXTREMITIES: No edema. Peripheral puls es 2+. Non-tender. - NEUROLOGIC: No focal neurological defi cits. CN II-XII grossly intact. General weakness - PSYCHIATRIC: Awake, Alert and oriented to person. Appropriate mood and affect. - SKIN: No rashes or lesions. Warm. - LYMPH: No cervical lymphadenopathy. Objective Data Vital Signs Vital Signs: Vital Signs - 24 hr 06/18/23 14:00 06/18/23 16:00 06/18/23 19:51 Temperature 37.0 C Pulse Rate 117 H 97 98 Respiratory Rate 16 Blood Pressure 152/84 H Pulse Oximetry 94 98 Oxygen Delivery Room Air 06/18/23 20:13 06/18/23 20:00 06/18/23 20:00 Temperature 36.4 C Pulse Rate 112 H 95 Respiratory Rate 17 Blood Pressure 110/58 L Pulse Oximetry 98 Oxygen Delivery Room Air 06/19/23 00:00 06/19/23 04:00 06/19/23 05:01 Temperature 36.3 C L Pulse Rate 112 H 96 93 Respiratory Rate 18 Blood Pressure 138/67 Pulse Oximetry 98 Oxygen Delivery 06/19/23 08:31 06/19/23 08:00 06/19/23 08:00 Temperature Pulse Rate 113 H 88 Respiratory Rate Blood Pressure Pulse Oximetry Oxygen Delivery Room Air Intake/Output Intake/Output: Intake & Output 06/16/23 06/17/23 06/18/23 06/19/23 23:59 23:59 23:59 23:59 Intake Total 1420 1640 1410 490 Output Total 1200 100 Balance 220 1540 1410 490 Meds/Results Medications: Active Medications Generic Name Dose Route Start Last Admin Trade Name Gilbertq PRN Reason Stop Dose Admin Acetaminophen 650 mg 06/15/23 16:07 Acetaminophen 325 Mg Tablet PO Q4H PRN Mild Pain (1-3) or Fever Alprazolam 0.25 mg 06/19/23 15:00 Alprazolam (*Crx) 0.25 Mg Tablet PO TID PRN Agitation Cilostazol 100 mg 06/14/23 08:00 06/19/23 08:30 Cilostazol 100 Mg Tablet PO 100 mg BIDWM PREMA Administration Dextrose 12.5 gm 06/14/23 15:12 Dextrose 50% 25 Gm/50 Ml Syringe IV PUSH PRN PRN Hypoglycemia Protocol Enoxaparin Sodium 40 mg 06/16/23 09:00 06/19/23 08:30 Enoxaparin 40 Mg/0.4 Ml Syringe SUB-Q 40 mg DAILY PREMA Administration Glucagon 1 mg 06/14/23 15:12 Glucagon For Inj 1 Mg Vial IM PRN PRN Hypoglycemia Protocol Glucose 15 gm 06/14/23 15:12 Glucose Oral Gel 15 Gm Of Glucse In 37.5 Gm Tube PO PRN PRN Hypoglycemia Protocol Dextrose 1,000 mls @ 100 mls/hr 06/14/23 15:12 Dextrose 5% 1,000 Ml IVPB PRN PRN Hypoglycemia Protocol Meropenem 1 gm in 100 mls @ 200 mls/hr 06/19/23 04:00 06/19/23 04:17 IVPB 06/20/23 23:59 Infused Q12H PREMA Infusion Lactobacillus Acidophilus 2 tablet 06/14/23 09:00 06/19/23 08:30 Acidophilus/Bulgaricus Chewable Tablet BY MOUTH 2 tablet DAILY PREMA Administration Levothyroxine Sodium 150 mcg 06/14/23 06:30 06/19/23 06:03 Levothyroxine Sodium 150 Mcg Tablet PO 150 mcg DAILY@0630 PREMA Administration Magnesium Oxide 400 mg 06/15/23 16:15 06/19/23 08:30 Magnesium Oxide 400 Mg Tablet PO 400 mg DAILY PREMA Administration Metoprolol Succinate 75 mg 06/19/23 09:00 06/19/23 08:31 Metoprolol Succinate Ext Rel 25 Mg Tabcr PO 75 mg DAILY PREMA Administration Miconazole Nitrate 1 applic 06/14/23 09:00 06/19/23 08:31 Miconazole 2% Antifungal Ointment 56 Gm TOPICAL 1 applic DAILY PREMA Administration Ondansetron HCl 4 mg 06/16/23 14:45 Ondansetron Inj 4 Mg/2 Ml Vial IV PUSH Q4H PRN Nausea And Vomiting Tolnaftate 1 applic 06/15/23 21:00 06/19/23 08:30 Tolnaftate 1% Powder 45 Gm Btl TOPICAL 1 applic Q12HR PREMA Administration Tramadol HCl 50 mg 06/14/23 00:53 Tramadol Hcl (*Crx) 50 Mg Tablet PO QID PRN Pain Radiology Results: ITS Impressions Head CT 06/13/23 14:55 IMPRESSION: Given the history of gait disturbance, altered mental status and dilated ventricles, communicating hydrocephalus should be considered Cerebral atherosclerosis and chronic small vessel ischemic changes of the cerebral white matter Venous Doppler Study 06/13/23 14:59 IMPRESSION: 1. No deep venous thrombosis. Abdomen/Pelvis CT 06/13/23 15:00 IMPRESSION: 1. No acute intra-abdominal/pelvic process. 2. Small sliding-type hiatal hernia. Renal Ultrasound 06/14/23 18:07 IMPRESSION: Unremarkable renal sonogram findings. Echogenic liver, most commonly due to steatosis but also can be seen with hepatitis and fibrosis Labs Labs: Laboratory Results - last 24 hr 06/18/23 06/18/23 06/19/23 17:00 20:09 05:39 WBC 7.2 RBC 3.98 L Hgb 10.6 L Hct 33.8 L MCV 84.9 MCH 26.6 MCHC 31.4 L RDW 16.1 H Plt Count 339 MPV 11.0 H Immature Gran % (Auto) 0.3 Neut % (Auto) 58.4 Lymph % (Auto) 25.4 [place] % (Auto) 13.1 H Eos % (Auto) 2.1 Baso % (Auto) 0.7 Lymph # (Auto) 1.82 [place] # (Auto) 0.9 H Eos # (Auto) 0.2 Baso # (Auto) 0.1 Abs Immat Gran (auto) 0.02 Absolute Neuts (auto) 4.2 Absolute Nucleated RBC 0.000 Nucleated RBC % 0.0 Sodium 136 L Potassium 3.7 Chloride 106 Carbon Dioxide 24 Anion Gap 6 BUN 15 Creatinine 1.00 Estim Creat Clear Calc 45 Estimated GFR 54 L Glucose 102 POC Capillary Glucose 132 H 118 H Calcium 9.5 Magnesium 1.8 Total Bilirubin 0.5 AST 25 ALT 10 Alkaline Phosphatase 59 Total Protein 7.0 Albumin 3.0 L 06/19/23 06/19/23 08:33 11:53 WBC RBC Hgb Hct MCV MCH MCHC RDW Plt Count MPV Immature Gran % (Auto) Neut % (Auto) Lymph % (Auto) [place] % (Auto) Eos % (Auto) Baso % (Auto) Lymph # (Auto) [place] # (Auto) Eos # (Auto) Baso # (Auto) Abs Immat Gran (auto) Absolute Neuts (auto) Absolute Nucleated RBC Nucleated RBC % Sodium Potassium Chloride Carbon Dioxide Anion Gap BUN Creatinine Estim Creat Clear Calc Estimated GFR Glucose POC Capillary Glucose 104 115 H Calcium Magnesium Total Bilirubin AST ALT Alkaline Phosphatase Total Protein Albumin Quality VTE Prophylaxis VTE prophylaxis: pharmacologic ordered
[2023-06-19 17:00] LABS: Glucose Point of Care 120 mg/dl (65-105)
--- NOTE | 2023-06-19 19:17 | PC.NURSE ---
Pt refusing to let nurse change dressing to right calf. Hospitalist aware.
[2023-06-19] MEDS: traMADol HCL (*CRX) 50 MG TABLET PO (20:12)
[2023-06-19] MEDS: ALPRAZolam (*CRX) 0.25 MG TABLET PO (20:13)
[2023-06-19 20:28] LABS: Glucose Point of Care 103 mg/dl (65-105)
[2023-06-20] MEDS: MEROPENEM 1 GM/NS 100 ML 1 GM/100 ML BAG IVPB ×2 (04:44→16:23)
[2023-06-20 05:09] VITALS: BP 117/59; PULSE 94; RESP 20; TEMP 36.6; O2SAT 92
[2023-06-20 05:33] LABS: Basophils Absolute Auto 0.1 K/mm3 (0.0-0.1); Basophils Percent Auto 0.9 % (0.2-1.2); Eosinophils Absolute Auto 0.2 K/mm3 (0-0.3); Eosinophils Percent Auto 2.6 % (0-4.4); Hematocrit 32.7 % (37.0-47.0); Hemoglobin 10.1 g/dL (12.0-15.0); Immature Granulocyte Absolute 0.01 K/mm3 (0.00-0.031); Immature Granulocyte Percent A 0.2 % (0-0.5); Lymphocytes Absolute Auto 1.83 K/mm3 (0.9-3.2); Lymphocytes Percent Auto 27.9 % (18.3-44.2); Mean Corpuscular HGB Conc 30.9 g/dl (32-36); Mean Corpuscular Hemoglobin 26.4 pg (26-34); Mean Corpuscular Volume 85.4 fl (80-100); Mean Platelet Volume 10.6 fl (7.4-10.4); Monocytes Absolute Auto 0.9 K/mm3 (0.1-0.6); Monocytes Percent Auto 13.1 % (2.6-8.5); Neutrophils Absolute Auto 3.6 K/mm3 (1.3-6.7); Neutrophils Percent Auto 55.3 % (45.5-73.1); Platelet Count Result 308 k/mm3 (150-375); Red Blood Count 3.83 M/mm3 (4.2-5.4); Red Cell Distribution Width 16.1 % (11.5-14.5); White Blood Count 6.6 K/mm3 (4.5-10.0)
[2023-06-20 05:44] LABS: Alanine Aminotransferase 10 U/L (6-35); Albumin Level 2.8 g/dL (3.5-5.1); Alkaline Phosphatase 59 U/L (38-126); Anion Gap 2 mmol/L (4-12); Aspartate Amino Transferase 27 U/L (14-36); Bilirubin,Total 0.4 mg/dL (0.2-1.3); Blood Urea Nitrogen 12 mg/dL (7-17); Carbon Dioxide 26 mmol/L (22-30); Chloride 105 mmol/L (98-107); Estimated CRCL calculation 50 ml/min; Estimated Glomerular Filt Rate > 60; Glucose 95 mg/dL (65-110); Magnesium 1.7 mg/dL (1.6-2.3); Potassium 3.7 mmol/L (3.4-5.0); Sodium 133 mmol/L (137-145)
[2023-06-20] MEDS: LEVOTHYROXINE SODIUM 150 MCG TABLET PO (05:51)
[2023-06-20 08:34] LABS: Glucose Point of Care 102 mg/dl (65-105)
[2023-06-20] MEDS: TOLNAFTATE 1% POWDER 45 GM BTL 1 APPLIC TOPICAL ×2 (09:21→21:53)
[2023-06-20] MEDS: cilostazoL 100 MG TABLET PO ×2 (09:21→16:24)
[2023-06-20] MEDS: ALPRAZolam (*CRX) 0.25 MG TABLET PO (09:21)
[2023-06-20] MEDS: MAGNESIUM OXIDE 400 MG TABLET PO (09:21)
[2023-06-20] MEDS: ACIDOPHILUS/BULGARICUS CHEWABLE TABLET 2 TABLET BY MOUTH (09:21)
[2023-06-20 09:22] VITALS: PULSE 91
[2023-06-20] MEDS: METOPROLOL SUCCINATE EXT REL 25 MG TABCR 75 MG PO (09:22)
[2023-06-20] MEDS: ENOXAPARIN 40 MG/0.4 ML SYRINGE SUB-Q (09:22)
--- NOTE | 2023-06-20 09:35 | P.DS_ITS ---
DS: Summary Time Spent with Patient Time attestation: Total time spent providing and/or coordinating discharge services: DS: Data Data Completed and Pending Labs on day of discharge: Labs from last 24 hours 06/20/23 06/20/23 06/19/23 08:32 05:27 20:21 WBC 6.6 RBC 3.83 L Hgb 10.1 L Hct 32.7 L MCV 85.4 MCH 26.4 MCHC 30.9 L RDW 16.1 H Plt Count 308 MPV 10.6 H Immature Gran % (Auto) 0.2 Neut % (Auto) 55.3 Lymph % (Auto) 27.9 [place] % (Auto) 13.1 H Eos % (Auto) 2.6 Baso % (Auto) 0.9 Lymph # (Auto) 1.83 [place] # (Auto) 0.9 H Eos # (Auto) 0.2 Baso # (Auto) 0.1 Abs Immat Gran (auto) 0.01 Absolute Neuts (auto) 3.6 Absolute Nucleated RBC 0.000 Nucleated RBC % 0.0 Sodium 133 L Potassium 3.7 Chloride 105 Carbon Dioxide 26 Anion Gap 2 L BUN 12 Creatinine 0.90 Estim Creat Clear Calc 50 Estimated GFR > 60 Glucose 95 POC Capillary Glucose 102 103 Calcium 9.0 Magnesium 1.7 Total Bilirubin 0.4 AST 27 ALT 10 Alkaline Phosphatase 59 Total Protein 6.0 L Albumin 2.8 L 06/19/23 06/19/23 16:58 11:53 WBC RBC Hgb Hct MCV MCH MCHC RDW Plt Count MPV Immature Gran % (Auto) Neut % (Auto) Lymph % (Auto) [place] % (Auto) Eos % (Auto) Baso % (Auto) Lymph # (Auto) [place] # (Auto) Eos # (Auto) Baso # (Auto) Abs Immat Gran (auto) Absolute Neuts (auto) Absolute Nucleated RBC Nucleated RBC % Sodium Potassium Chloride Carbon Dioxide Anion Gap BUN Creatinine Estim Creat Clear Calc Estimated GFR Glucose POC Capillary Glucose 120 H 115 H Calcium Magnesium Total Bilirubin AST ALT Alkaline Phosphatase Total Protein Albumin Discharge Plan Discharge Consulting providers: Reyes Alonso Patient Disposition: SNF Stand Alone Forms: General Discharge Information Discharge Medications: No Action Santyl 250 unit/gram ointment 1 applic topical DAILY Qty: 90 1RF Rx Instructions: sacrum and right lower leg metoprolol succinate 25 mg capsule,sprinkle,ER 24hr 37.5 mg PO DAILY Qty: 45 0RF lisinopril 20 mg tablet 20 mg PO DAILY Qty: 90 0RF Probiotic 10 billion cell capsule 10,000 mmu cells PO DAILY Qty: 10 0RF tramadol 50 mg tablet 50 mg PO QID PRN (Reason: Pain) potassium chloride [Klor-Con] 20 mEq packet 20 meq PO DAILY Farxiga 5 mg tablet 5 mg PO DAILY Qty: 30 2RF cilostazol 100 mg tablet 100 mg PO BID Qty: 180 0RF furosemide 40 mg tablet 60 mg PO QAM cholecalciferol (vitamin D3) 50 mcg (2,000 unit) capsule 50 mcg PO DAILY Critic-Aid Clear AF(miconazol) 2 % ointment 1 applic topical DAILY nystatin 100,000 unit/gram powder 1 applic topical DAILY levothyroxine 150 mcg tablet 150 mcg PO DAILY Qty: 30 0RF spironolactone [Aldactone] 25 mg tablet 25 mg PO DAILY Qty: 30 1RF ondansetron 8 mg tablet,disintegrating 8 mg PO Q8H PRN (Reason: nausea and vomiting) Qty: 30 0RF Date of admission: 06/15/23 16:32 Primary Care Provider: Anton Silva Admitting Provider: Aleks Holder Attending physician on admission: Aleks Holder Condition: Serious
[2023-06-20 10:43] LABS: Thyroid Stimulating Hormone Reflex 0.021 uIU/mL (0.465-4.68)
--- NOTE | 2023-06-20 11:33 | WPDNEUROPN ---
Progress Note: A&P Assessment and Plan (1) Altered mental status: Qualifiers: Altered mental status type: unspecified Qualified Code(s): R41.82 - Altered mental status, unspecified Code(s): R41.82 - Altered mental status, unspecified Status: Acute (2) UTI (urinary tract infection): Qualifiers: Urinary tract infection type: acute cystitis Hematuria presence: without hematuria Qualified Code(s): N30.00 - Acute cystitis without hematuria Code(s): N39.0 - Urinary tract infection, site not specified Status: Acute (3) Memory dysfunction: Code(s): R41.3 - Other amnesia Status: Acute (4) NPH (normal pressure hydrocephalus): Code(s): G91.2 - (Idiopathic) normal pressure hydrocephalus Status: Acute Plan Ms. North is a 78 year old female presenting due to altered mental status. Found to have a UTI which she was treated for. Still somewhat confused. She has had cognitive decline for months now so there is concern for underlying dementia. CT head has shown prominence of ventricles, and in the setting of cognitive dysfunction, gait instabilty, and urinary incontinence, raises concern for NPH. TSH noted to be low during the admission, which maybe also contributing to encephalopathy. - Recheck TSH -- adjust levothyroxine accordingly - Neurosurgery evaluation and cisternogram being done as outpatient Subjective Date/time seen: 06/20/23 11:33 Interval history: Ms. North is a 78 year old female with a history of gait instability, PHYLICIA, aortic stenosis, diabetes type II, HTN, cervical spondylosis with radiculopathy, CHF, CKD, cognitive decline presenting due to generalized waekness, confusion. In the ER she had a CT head which showed dilated ventricles raising concern for NPH. Case was discussed by ER with Neurosurgeon online user experience strategist who recommended outpatient evaluation. She was found to have a UTI so she was subsequently admitted. Per family patient has been more confused over the past few months. There are also reports of urinary incontinence, and impaired gait. She was treated for UTI. There were initial plans for transfer to tertiary care center for neurosurgical evaluation and cisternogram, but Dr. Cade had recommended outpatient evaluation as well. Hospitalists planning to discharge to SNF today with close outpatient follow-up with Neurosurgery. B12 and folate levels from this admission are normal. TSH noted to be low at 0.015 from May 2023. She does take levothyroxine. Review of Systems Review of Systems: All systems reviewed & are unremarkable except as noted in HPI and below Exam Const: General: comfortable and no acute distress Eyes: Pupils: Equal, round and reactive pupils present EOM: EOMs intact bilaterally Resp: Effort & Inspection: normal respiratory effort Skin: General skin exam: normal color Neuro: Other: Alert, awake, oriented to self, hospital, and month. PERRL, EOMI, face is symmetric, strength in the upper extremities is age appropriate and symmetrical, lower extremities 2/5 bilaterally. Language fluency and comprehension is fairly intact. Follow commands well. Extrem: General: normal to inspection Objective Data Vital Signs Vital Signs: Vital Signs - 24 hr 06/19/23 12:00 06/19/23 15:44 06/19/23 20:00 Temperature 36.2 C L Pulse Rate 81 91 Respiratory Rate 18 Blood Pressure 137/6 L Pulse Oximetry 97 Oxygen Delivery Room Air 06/19/23 21:05 06/20/23 05:09 06/20/23 09:22 Temperature 36.6 C 36.6 C Pulse Rate 87 94 91 Respiratory Rate 16 20 Blood Pressure 118/79 117/59 L Pulse Oximetry 96 92 Oxygen Delivery 06/20/23 08:00 Temperature Pulse Rate Respiratory Rate Blood Pressure Pulse Oximetry Oxygen Delivery Room Air Intake/Output Intake/Output: Intake & Output 06/17/23 06/18/23 06/19/23 06/20/23 23:59 23:59 23:59 23:59 Intake Total 1640 1410 1620 200 Output Total 100 Balance 1540 1410 1620 200 Meds/Results Medications: Active Medications Generic Name Dose Route Start Last Admin Trade Name Freq PRN Reason Stop Dose Admin Acetaminophen 650 mg 06/15/23 16:07 Acetaminophen 325 Mg Tablet PO Q4H PRN Mild Pain (1-3) or Fever Alprazolam 0.25 mg 06/19/23 15:00 06/20/23 09:21 Alprazolam (*Crx) 0.25 Mg Tablet PO 0.25 mg TID PRN Administration Agitation Cilostazol 100 mg 06/14/23 08:00 06/20/23 09:21 Cilostazol 100 Mg Tablet PO 100 mg BIDWM PREMA Administration Dextrose 12.5 gm 06/14/23 15:12 Dextrose 50% 25 Gm/50 Ml Syringe IV PUSH PRN PRN Hypoglycemia Protocol Enoxaparin Sodium 40 mg 06/16/23 09:00 06/20/23 09:22 Enoxaparin 40 Mg/0.4 Ml Syringe SUB-Q 40 mg DAILY PREMA Administration Glucagon 1 mg 06/14/23 15:12 Glucagon For Inj 1 Mg Vial IM PRN PRN Hypoglycemia Protocol Glucose 15 gm 06/14/23 15:12 Glucose Oral Gel 15 Gm Of Glucse In 37.5 Gm Tube PO PRN PRN Hypoglycemia Protocol Dextrose 1,000 mls @ 100 mls/hr 06/14/23 15:12 Dextrose 5% 1,000 Ml IVPB PRN PRN Hypoglycemia Protocol Meropenem 1 gm in 100 mls @ 200 mls/hr 06/19/23 04:00 06/20/23 05:14 IVPB 06/20/23 23:59 Infused Q12H PREMA Infusion Lactobacillus Acidophilus 2 tablet 06/14/23 09:00 06/20/23 09:21 Acidophilus/Bulgaricus Chewable Tablet BY MOUTH 2 tablet DAILY PREMA Administration Levothyroxine Sodium 150 mcg 06/14/23 06:30 06/20/23 05:51 Levothyroxine Sodium 150 Mcg Tablet PO 150 mcg DAILY@0630 PREMA Administration Magnesium Oxide 400 mg 06/15/23 16:15 06/20/23 09:21 Magnesium Oxide 400 Mg Tablet PO 400 mg DAILY PREMA Administration Metoprolol Succinate 75 mg 06/19/23 09:00 06/20/23 09:22 Metoprolol Succinate Ext Rel 25 Mg Tabcr PO 75 mg DAILY PREMA Administration Miconazole Nitrate 1 applic 06/14/23 09:00 06/20/23 09:21 Miconazole 2% Antifungal Ointment 56 Gm TOPICAL 1 applic DAILY PREMA Administration Ondansetron HCl 4 mg 06/16/23 14:45 Ondansetron Inj 4 Mg/2 Ml Vial IV PUSH Q4H PRN Nausea And Vomiting Tolnaftate 1 applic 06/15/23 21:00 06/20/23 09:21 Tolnaftate 1% Powder 45 Gm Btl TOPICAL 1 applic Q12HR PREMA Administration Tramadol HCl 50 mg 06/14/23 00:53 06/19/23 20:12 Tramadol Hcl (*Crx) 50 Mg Tablet PO 50 mg QID PRN Administration Pain Radiology Results: ITS Impressions Head CT 06/13/23 14:55 IMPRESSION: Given the history of gait disturbance, altered mental status and dilated ventricles, communicating hydrocephalus should be considered Cerebral atherosclerosis and chronic small vessel ischemic changes of the cerebral white matter Venous Doppler Study 06/13/23 14:59 IMPRESSION: 1. No deep venous thrombosis. Abdomen/Pelvis CT 06/13/23 15:00 IMPRESSION: 1. No acute intra-abdominal/pelvic process. 2. Small sliding-type hiatal hernia. Renal Ultrasound 06/14/23 18:07 IMPRESSION: Unremarkable renal sonogram findings. Echogenic liver, most commonly due to steatosis but also can be seen with hepatitis and fibrosis Labs Labs: Laboratory Results - last 24 hr 06/19/23 06/19/23 06/19/23 11:53 16:58 20:21 WBC RBC Hgb Hct MCV MCH MCHC RDW Plt Count MPV Immature Gran % (Auto) Neut % (Auto) Lymph % (Auto) [place] % (Auto) Eos % (Auto) Baso % (Auto) Lymph # (Auto) [place] # (Auto) Eos # (Auto) Baso # (Auto) Abs Immat Gran (auto) Absolute Neuts (auto) Absolute Nucleated RBC Nucleated RBC % Sodium Potassium Chloride Carbon Dioxide Anion Gap BUN Creatinine Estim Creat Clear Calc Estimated GFR Glucose POC Capillary Glucose 115 H 120 H 103 Calcium Magnesium Total Bilirubin AST ALT Alkaline Phosphatase Total Protein Albumin TSH (Reflex) 06/20/23 06/20/23 05:27 08:32 WBC 6.6 RBC 3.83 L Hgb 10.1 L Hct 32.7 L MCV 85.4 MCH 26.4 MCHC 30.9 L RDW 16.1 H Plt Count 308 MPV 10.6 H Immature Gran % (Auto) 0.2 Neut % (Auto) 55.3 Lymph % (Auto) 27.9 [place] % (Auto) 13.1 H Eos % (Auto) 2.6 Baso % (Auto) 0.9 Lymph # (Auto) 1.83 [place] # (Auto) 0.9 H Eos # (Auto) 0.2 Baso # (Auto) 0.1 Abs Immat Gran (auto) 0.01 Absolute Neuts (auto) 3.6 Absolute Nucleated RBC 0.000 Nucleated RBC % 0.0 Sodium 133 L Potassium 3.7 Chloride 105 Carbon Dioxide 26 Anion Gap 2 L BUN 12 Creatinine 0.90 Estim Creat Clear Calc 50 Estimated GFR > 60 Glucose 95 POC Capillary Glucose 102 Calcium 9.0 Magnesium 1.7 Total Bilirubin 0.4 AST 27 ALT 10 Alkaline Phosphatase 59 Total Protein 6.0 L Albumin 2.8 L TSH (Reflex) 0.021 L Amg Follow[facility]up Billing [facility] Follow-up Hospital Follow-up: [id number] [facility]
--- NOTE | 2023-06-20 11:45 | PCPTNOTE ---
Attempted to see patient for PT, however patient declined. Patient reported she was going home today and di not want to do therapy.
[2023-06-20 12:28] LABS: Free T4 Free Thyroxine Reflex 2.67 ng/dL (0.78-2.19)
[2023-06-20 12:49] LABS: Glucose Point of Care 110 mg/dl (65-105)
[2023-06-20 14:00] VITALS: BP 120/58; PULSE 98; RESP 18; TEMP 36.7; O2SAT 93
--- NOTE | 2023-06-20 16:19 | P.PNIM_ITS ---
Progress Note: A&P Assessment and Plan (1) UTI (urinary tract infection): Qualifiers: Urinary tract infection type: site unspecified Hematuria presence: without hematuria Qualified Code(s): N39.0 - Urinary tract infection, site not specified Code(s): N39.0 - Urinary tract infection, site not specified Status: Acute (2) Acute kidney injury: Code(s): N17.9 - Acute kidney failure, unspecified Status: Acute (3) PHYLICIA on CPAP: Code(s): G47.33 - Obstructive sleep apnea (adult) (pediatric) Status: Acute (4) DM type 2 (diabetes mellitus, type 2): Qualifiers: Diabetes mellitus [employer] intermediary insulin use: unspecified fci insulin use status Diabetes mellitus complication status: without complication Qualified Code(s): E11.9 - Type 2 diabetes mellitus without complications Code(s): E11.9 - Type 2 diabetes mellitus without complications Status: Acute Plan (1) UTI (urinary tract infection): ?Qualifiers: ?Hematuria presence:?without hematuria??Urinary tract infection type:? site unspecified? Qualified Code(s):?N39.0 - Urinary tract infection, site not specified ?Code(s): N39.0 - Urinary tract infection, site not specified ?Status:?Acute ?Assessment and Plan: UA grossly positive for UTI * Started on meropenem * IV fluids at 75 ml * Urine culture pending * Blood culture pending 06/14: * Urine culture is growing E coli.? Sensitivities pending. * Continue meropenem * Stopping IV fluids as her creatinine has decreased to 1.7 (baseline ranging 1.1-1.9) * She is eating and drinking appropriately * P.r.n. Tylenol as needed for mild pain or fever 06/15: * ESBL already on meropenem * Can increase dose to 1 gram q 12 per ID pharmacist * She needs two more days and then she is good to go to SNF 06/16: Patient is afebrile, blood pressure is stable blood culture no growth, continue meropenem today 06/17: Continue meropenem pending SNF placement 06/19: Meropenem completing today. (2) Altered mental status: ?Qualifiers: ?Altered mental status type:?unspecified? Qualified Code(s):?R41.82 - Altered mental status, unspecified ?Code(s): R41.82 - Altered mental status, unspecified ?Status:?Acute ?Assessment and Plan: UTI versus hydrocephalus versus dementia * Family states she has been more confused over the last couple months * CT head shows dilated ventricles concerning for possible communicating hydrocephalus, cerebral arteriosclerosis and chronic small-vessel ischemic changes noted * Patient has recurrent urinary incontinence with weakness and impaired gait * Consulted neurology, recommendations appreciated * Reorientation as needed * Delirium precautions * Fall precaution 06/14: * Neurology discuss with family further workup of hydrocephalus including transfer to tertiary [facility] for cisternogram.? Family is in discussion over this. * EEG today * Patient remains oriented to self only 06/15: * Does not appear to be improving with resolution of her UTI * Outpatient neurosurgery consult at discharge 06/18: Significant sundowning symptoms. Ordered p.r.n. low-dose alprazolam for agitation. Considered Seroquel but it is QT prolonging 06/19: Unchanged (3) Acute kidney injury: ?Code(s): N17.9 - Acute kidney failure, unspecified ?Status:?Acute ?Assessment and Plan: Creatinine baseline appears to be 1.2-1.9 * Creatinine 2.7 on admission * NS at 75 ml * Holding lasix and lisinopril * Avoid nephrotoxic medications * Daily CMP 06/14: * Creatinine 1.7 * IV fluids discontinued * She is eating and drinking without issue 06/15: * Stable 06/16: Kidney function continue to improve, BUN 17, creatinine 1.1 today 06/17: Stable and improving (4) Generalized weakness: ?Code(s): R53.1 - Weakness ?Status:?Acute ?Assessment and Plan: PT, OT consulted for assistance with placement recommendations. Family can no longer manage patient's care at home. 06/14: * Up in a chair * PT evaluated this afternoon and is recommending SNF (5) DM type 2 (diabetes mellitus, type 2): ?Qualifiers: ?Diabetes mellitus complication status:?without complication??Diabetes mellitus ocean [employer] intermediary insulin use:?unspecified fci insulin use status? Qualified Code(s):?E11.9 - Type 2 diabetes mellitus without complications ?Code(s): E11.9 - Type 2 diabetes mellitus without complications ?Status:?Acute ?Assessment and Plan: Hgb A1C 6.4% on Farxiga at home * Held due to GFR * ACHS checks * hypoglycemic protocol PRN * Fasting labs less than 150 06/14: * Blood glucose ranging 114-141 (6) Essential hypertension: ?Code(s): I10 - Essential (primary) hypertension ?Status:?Acute ?Assessment and Plan: * Blood pressures are currently running low * Holding agents at this time * Q 8 hour VS 06/14: * Blood pressures reviewed * Continuing to hold antihypertensives (7) Diastolic congestive heart failure: ?Code(s): I50.30 - Unspecified diastolic (congestive) heart failure ?Status:?Acute ?Assessment and Plan: Gentle fluids at 75 ml per hour for NELSON 06/14: * Fluids DC today. Creatinine improving. (8) Diabetic leg ulcer: ?Code(s): E11.622 - Type 2 diabetes mellitus with other skin ulcer; L97.909 - Non-pressure chronic ulcer of unspecified part of unspecified lower leg with unspecified severity ?Status:?Acute ?Assessment and Plan: * Wound consult * Photos taken * Daily dressing changes 06/14: * Nystatin to skin folds to decrease moisture * Right lower posterior leg wound with daily wound changes * Right foot wound with daily changes * Coccyx wound with daily changes * Wound care orders were taken from recent home health notes. * Wound care will consult and see Friday and can make changes as they see fit. 06/18: * Patient fighting nursing staff about changing dressing (9) PHYLICIA on CPAP: ?Code(s): G47.33 - Obstructive sleep apnea (adult) (pediatric) ?Status:?Acute ?Assessment and Plan: ?CPAP AT NIGHTTIME 06/17: Pending SNF placement/insurance auth 06/18: Anticipated SNF discharge tomorrow 06/19: Still awaiting insurance authorization for SNF discharge Time Spent With Patient Time with patient: 25 - 35 minutes Subjective Date/time seen: 06/20/23 16:19 Interval history: Patient has no new concerns. Discuss with neurology will recheck TSH as it was normal last time. Awaiting insurance authorization for SNF discharge. Patient still having late afternoon agitation each day. Review of Systems Review of Systems: ROS unobtainable: Yes unobtainable due to mental status Exam Narrative: GENERAL: Pleasant, in no acute distress. Well-nourished. - EYES: EOMI. Anicteric. - HENT: Moist mucous membranes. - LUNGS: Clear to auscultation bilateral ly, no wheezing, rhonchi, or rales. - CARDIOVASCULAR: Mildly tachycardic ra te and consistent rhythm. No murmur. No JVD. - ABDOMEN: Soft, non-tender and non-dist ended. No palpable masses. - EXTREMITIES: No edema. Peripheral puls es 2+. Non-tender. - NEUROLOGIC: No focal neurological defi cits. CN II-XII grossly intact. General weakness - PSYCHIATRIC: Awake, Alert and oriented to person. Appropriate mood and affect. - SKIN: No rashes or lesions. Warm. - LYMPH: No cervical lymphadenopathy. Objective Data Vital Signs Vital Signs: Vital Signs - 24 hr 06/19/23 20:00 06/19/23 21:05 06/20/23 05:09 Temperature 36.6 C 36.6 C Pulse Rate 87 94 Respiratory Rate 16 20 Blood Pressure 118/79 117/59 L Pulse Oximetry 96 92 Oxygen Delivery Room Air 06/20/23 09:22 06/20/23 08:00 06/20/23 14:00 Temperature 36.7 C Pulse Rate 91 98 Respiratory Rate 18 Blood Pressure 120/58 L Pulse Oximetry 93 Oxygen Delivery Room Air Intake/Output Intake/Output: Intake & Output 06/17/23 06/18/23 06/19/23 06/20/23 23:59 23:59 23:59 23:59 Intake Total 1640 1410 1620 440 Output Total 100 Balance 1540 1410 1620 440 Meds/Results Medications: Active Medications Generic Name Dose Route Start Last Admin Trade Name Freq PRN Reason Stop Dose Admin Acetaminophen 650 mg 06/15/23 16:07 Acetaminophen 325 Mg Tablet PO Q4H PRN Mild Pain (1-3) or Fever Alprazolam 0.25 mg 06/19/23 15:00 06/20/23 09:21 Alprazolam (*Crx) 0.25 Mg Tablet PO 0.25 mg TID PRN Administration Agitation Cilostazol 100 mg 06/14/23 08:00 06/20/23 09:21 Cilostazol 100 Mg Tablet PO 100 mg BIDWM PREMA Administration Dextrose 12.5 gm 06/14/23 15:12 Dextrose 50% 25 Gm/50 Ml Syringe IV PUSH PRN PRN Hypoglycemia Protocol Enoxaparin Sodium 40 mg 06/16/23 09:00 06/20/23 09:22 Enoxaparin 40 Mg/0.4 Ml Syringe SUB-Q 40 mg DAILY PREMA Administration Glucagon 1 mg 06/14/23 15:12 Glucagon For Inj 1 Mg Vial IM PRN PRN Hypoglycemia Protocol Glucose 15 gm 06/14/23 15:12 Glucose Oral Gel 15 Gm Of Glucse In 37.5 Gm Tube PO PRN PRN Hypoglycemia Protocol Dextrose 1,000 mls @ 100 mls/hr 06/14/23 15:12 Dextrose 5% 1,000 Ml IVPB PRN PRN Hypoglycemia Protocol Meropenem 1 gm in 100 mls @ 200 mls/hr 06/19/23 04:00 06/20/23 05:14 IVPB 06/20/23 23:59 Infused Q12H PREMA Infusion Lactobacillus Acidophilus 2 tablet 06/14/23 09:00 06/20/23 09:21 Acidophilus/Bulgaricus Chewable Tablet BY MOUTH 2 tablet DAILY PREMA Administration Levothyroxine Sodium 125 mcg 06/21/23 06:30 Levothyroxine Sodium 125 Mcg Tablet PO DAILY@0630 PREMA Magnesium Oxide 400 mg 06/15/23 16:15 06/20/23 09:21 Magnesium Oxide 400 Mg Tablet PO 400 mg DAILY PREMA Administration Metoprolol Succinate 75 mg 06/19/23 09:00 06/20/23 09:22 Metoprolol Succinate Ext Rel 25 Mg Tabcr PO 75 mg DAILY PREMA Administration Miconazole Nitrate 1 applic 06/14/23 09:00 06/20/23 09:21 Miconazole 2% Antifungal Ointment 56 Gm TOPICAL 1 applic DAILY PREMA Administration Ondansetron HCl 4 mg 06/16/23 14:45 Ondansetron Inj 4 Mg/2 Ml Vial IV PUSH Q4H PRN Nausea And Vomiting Tolnaftate 1 applic 06/15/23 21:00 06/20/23 09:21 Tolnaftate 1% Powder 45 Gm Btl TOPICAL 1 applic Q12HR PREMA Administration Tramadol HCl 50 mg 06/14/23 00:53 06/19/23 20:12 Tramadol Hcl (*Crx) 50 Mg Tablet PO 50 mg QID PRN Administration Pain Radiology Results: ITS Impressions Head CT 06/13/23 14:55 IMPRESSION: Given the history of gait disturbance, altered mental status and dilated ventricles, communicating hydrocephalus should be considered Cerebral atherosclerosis and chronic small vessel ischemic changes of the cerebral white matter Venous Doppler Study 06/13/23 14:59 IMPRESSION: 1. No deep venous thrombosis. Abdomen/Pelvis CT 06/13/23 15:00 IMPRESSION: 1. No acute intra-abdominal/pelvic process. 2. Small sliding-type hiatal hernia. Renal Ultrasound 06/14/23 18:07 IMPRESSION: Unremarkable renal sonogram findings. Echogenic liver, most commonly due to steatosis but also can be seen with hepatitis and fibrosis Labs Labs: Laboratory Results - last 24 hr 06/19/23 06/19/23 06/20/23 16:58 20:21 05:27 WBC 6.6 RBC 3.83 L Hgb 10.1 L Hct 32.7 L MCV 85.4 MCH 26.4 MCHC 30.9 L RDW 16.1 H Plt Count 308 MPV 10.6 H Immature Gran % (Auto) 0.2 Neut % (Auto) 55.3 Lymph % (Auto) 27.9 [place] % (Auto) 13.1 H Eos % (Auto) 2.6 Baso % (Auto) 0.9 Lymph # (Auto) 1.83 [place] # (Auto) 0.9 H Eos # (Auto) 0.2 Baso # (Auto) 0.1 Abs Immat Gran (auto) 0.01 Absolute Neuts (auto) 3.6 Absolute Nucleated RBC 0.000 Nucleated RBC % 0.0 Sodium 133 L Potassium 3.7 Chloride 105 Carbon Dioxide 26 Anion Gap 2 L BUN 12 Creatinine 0.90 Estim Creat Clear Calc 50 Estimated GFR > 60 Glucose 95 POC Capillary Glucose 120 H 103 Calcium 9.0 Magnesium 1.7 Total Bilirubin 0.4 AST 27 ALT 10 Alkaline Phosphatase 59 Total Protein 6.0 L Albumin 2.8 L TSH (Reflex) 0.021 L Free T4 2.67 H 06/20/23 06/20/23 08:32 12:47 WBC RBC Hgb Hct MCV MCH MCHC RDW Plt Count MPV Immature Gran % (Auto) Neut % (Auto) Lymph % (Auto) [place] % (Auto) Eos % (Auto) Baso % (Auto) Lymph # (Auto) [place] # (Auto) Eos # (Auto) Baso # (Auto) Abs Immat Gran (auto) Absolute Neuts (auto) Absolute Nucleated RBC Nucleated RBC % Sodium Potassium Chloride Carbon Dioxide Anion Gap BUN Creatinine Estim Creat Clear Calc Estimated GFR Glucose POC Capillary Glucose 102 110 H Calcium Magnesium Total Bilirubin AST ALT Alkaline Phosphatase Total Protein Albumin TSH (Reflex) Free T4 Pulse Oximetry SpO2 results: 92-96% on room air Attestation: I personally reviewed and interpreted this pulse oximetry as follows: Interpretation: no need for supplemental oxygenation at this time Quality VTE Prophylaxis VTE prophylaxis: pharmacologic ordered
[2023-06-20 17:25] LABS: Glucose Point of Care 95 mg/dl (65-105)
--- NOTE | 2023-06-20 18:35 | PC.NURSE ---
Pt refusing dressing change. Hospitalist aware.
[2023-06-20 20:00] VITALS: PULSE 98; RESP 18; O2SAT 93
[2023-06-20 21:01] VITALS: BP 135/54; PULSE 75; RESP 16; TEMP 36.3; O2SAT 96
[2023-06-20 21:09] LABS: Glucose Point of Care 102 mg/dl (65-105)
[2023-06-21 04:46] VITALS: BP 131/66; PULSE 95; RESP 16; TEMP 36.3; O2SAT 97
[2023-06-21] MEDS: LEVOTHYROXINE SODIUM 125 MCG TABLET PO (05:08)
[2023-06-21 05:59] LABS: Basophils Absolute Auto 0.1 K/mm3 (0.0-0.1); Basophils Percent Auto 0.7 % (0.2-1.2); Eosinophils Absolute Auto 0.2 K/mm3 (0-0.3); Hematocrit 35.6 % (37.0-47.0); Hemoglobin 11.1 g/dL (12.0-15.0); Immature Granulocyte Absolute 0.02 K/mm3 (0.00-0.031); Immature Granulocyte Percent A 0.3 % (0-0.5); Lymphocytes Absolute Auto 1.74 K/mm3 (0.9-3.2); Lymphocytes Percent Auto 22.9 % (18.3-44.2); Mean Corpuscular HGB Conc 31.2 g/dl (32-36); Mean Corpuscular Hemoglobin 26.9 pg (26-34); Mean Corpuscular Volume 86.4 fl (80-100); Monocytes Absolute Auto 0.8 K/mm3 (0.1-0.6); Monocytes Percent Auto 10.4 % (2.6-8.5); Neutrophils Absolute Auto 4.9 K/mm3 (1.3-6.7); Neutrophils Percent Auto 63.7 % (45.5-73.1); Platelet Count Result 337 k/mm3 (150-375); Red Blood Count 4.12 M/mm3 (4.2-5.4); Red Cell Distribution Width 16.3 % (11.5-14.5); White Blood Count 7.6 K/mm3 (4.5-10.0)
[2023-06-21 06:03] LABS: Alanine Aminotransferase 10 U/L (6-35); Alkaline Phosphatase 64 U/L (38-126); Anion Gap 3 mmol/L (4-12); Aspartate Amino Transferase 25 U/L (14-36); Bilirubin,Total 0.4 mg/dL (0.2-1.3); Blood Urea Nitrogen 13 mg/dL (7-17); Calcium 9.4 mg/dL (8.4-10.2); Carbon Dioxide 27 mmol/L (22-30); Chloride 106 mmol/L (98-107); Estimated CRCL calculation 50 ml/min; Estimated Glomerular Filt Rate > 60; Glucose 104 mg/dL (65-110); Magnesium 1.8 mg/dL (1.6-2.3); Potassium 3.6 mmol/L (3.4-5.0); Sodium 136 mmol/L (137-145)
[2023-06-21 08:17] LABS: Glucose Point of Care 102 mg/dl (65-105)
[2023-06-21 08:23] VITALS: PULSE 85
[2023-06-21] MEDS: cilostazoL 100 MG TABLET PO ×2 (08:23→16:46)
[2023-06-21] MEDS: ACIDOPHILUS/BULGARICUS CHEWABLE TABLET 2 TABLET BY MOUTH (08:23)
[2023-06-21] MEDS: MAGNESIUM OXIDE 400 MG TABLET PO (08:23)
[2023-06-21] MEDS: METOPROLOL SUCCINATE EXT REL 25 MG TABCR 75 MG PO (08:23)
[2023-06-21] MEDS: ENOXAPARIN 40 MG/0.4 ML SYRINGE SUB-Q (08:24)
[2023-06-21] MEDS: TOLNAFTATE 1% POWDER 45 GM BTL 1 APPLIC TOPICAL ×2 (08:24→20:26)
--- NOTE | 2023-06-21 10:10 | P.PNIM_ITS ---
Progress Note: A&P Assessment and Plan (1) UTI (urinary tract infection): Qualifiers: Urinary tract infection type: site unspecified Hematuria presence: without hematuria Qualified Code(s): N39.0 - Urinary tract infection, site not specified Code(s): N39.0 - Urinary tract infection, site not specified Status: Acute (2) Acute kidney injury: Code(s): N17.9 - Acute kidney failure, unspecified Status: Acute (3) PHYLICIA on CPAP: Code(s): G47.33 - Obstructive sleep apnea (adult) (pediatric) Status: Acute (4) DM type 2 (diabetes mellitus, type 2): Qualifiers: Diabetes mellitus intermodal customer service insulin use: unspecified penitentiary insulin use status Diabetes mellitus complication status: without complication Qualified Code(s): E11.9 - Type 2 diabetes mellitus without complications Code(s): E11.9 - Type 2 diabetes mellitus without complications Status: Acute Plan (1) UTI (urinary tract infection): ?Qualifiers: ?Hematuria presence:?without hematuria??Urinary tract infection type:? site unspecified? Qualified Code(s):?N39.0 - Urinary tract infection, site not specified ?Code(s): N39.0 - Urinary tract infection, site not specified ?Status:?Acute ?Assessment and Plan: UA grossly positive for UTI * Started on meropenem * IV fluids at 75 ml * Urine culture pending * Blood culture pending 06/14: * Urine culture is growing E coli.? Sensitivities pending. * Continue meropenem * Stopping IV fluids as her creatinine has decreased to 1.7 (baseline ranging 1.1-1.9) * She is eating and drinking appropriately * P.r.n. Tylenol as needed for mild pain or fever 06/15: * ESBL already on meropenem * Can increase dose to 1 gram q 12 per ID pharmacist * She needs two more days and then she is good to go to SNF 06/16: Patient is afebrile, blood pressure is stable blood culture no growth, continue meropenem today 06/17: Continue meropenem pending SNF placement 06/19: Meropenem completing today. 06/20: treatment completed (2) Altered mental status: ?Qualifiers: ?Altered mental status type:?unspecified? Qualified Code(s):?R41.82 - Altered mental status, unspecified ?Code(s): R41.82 - Altered mental status, unspecified ?Status:?Acute ?Assessment and Plan: UTI versus hydrocephalus versus dementia * Family states she has been more confused over the last couple months * CT head shows dilated ventricles concerning for possible communicating hydrocephalus, cerebral arteriosclerosis and chronic small-vessel ischemic changes noted * Patient has recurrent urinary incontinence with weakness and impaired gait * Consulted neurology, recommendations appreciated * Reorientation as needed * Delirium precautions * Fall precaution 06/14: * Neurology discuss with family further workup of hydrocephalus including transfer to tertiary care center for cisternogram.? Family is in discussion over this. * EEG today * Patient remains oriented to self only 06/15: * Does not appear to be improving with resolution of her UTI * Outpatient neurosurgery consult at discharge 06/18: Significant sundowning symptoms. Ordered p.r.n. low-dose alprazolam for agitation. Considered Seroquel but it is QT prolonging 06/19: Unchanged 06/20: unchanged (3) Acute kidney injury: ?Code(s): N17.9 - Acute kidney failure, unspecified ?Status:?Acute ?Assessment and Plan: Creatinine baseline appears to be 1.2-1.9 * Creatinine 2.7 on admission * NS at 75 ml * Holding lasix and lisinopril * Avoid nephrotoxic medications * Daily CMP 06/14: * Creatinine 1.7 * IV fluids discontinued * She is eating and drinking without issue 06/15: * Stable 06/16: Kidney function continue to improve, BUN 17, creatinine 1.1 today 06/17: Stable and improving (4) Generalized weakness: ?Code(s): R53.1 - Weakness ?Status:?Acute ?Assessment and Plan: PT, OT consulted for assistance with placement recommendations. Family can no longer manage patient's care at home. 06/14: * Up in a chair * PT evaluated this afternoon and is recommending SNF (5) DM type 2 (diabetes mellitus, type 2): ?Qualifiers: ?Diabetes mellitus complication status:?without complication??Diabetes mellitus intermodal customer service insulin use:?unspecified intermodal customer service insulin use status? Qualified Code(s):?E11.9 - Type 2 diabetes mellitus without complications ?Code(s): E11.9 - Type 2 diabetes mellitus without complications ?Status:?Acute ?Assessment and Plan: Hgb A1C 6.4% on Farxiga at home * Held due to GFR * ACHS checks * hypoglycemic protocol PRN * Fasting labs less than 150 06/14: * Blood glucose ranging 114-141 06/20: patient fighting nursing staff regarding blood sugar checks. She has not required sliding scale insulin during this hospitalization. Change fingerstick glucose to PRN (6) Essential hypertension: ?Code(s): I10 - Essential (primary) hypertension ?Status:?Acute ?Assessment and Plan: * Blood pressures are currently running low * Holding agents at this time * Q 8 hour VS 06/14: * Blood pressures reviewed * Continuing to hold antihypertensives (7) Diastolic congestive heart failure: ?Code(s): I50.30 - Unspecified diastolic (congestive) heart failure ?Status:?Acute ?Assessment and Plan: Gentle fluids at 75 ml per hour for NELSON 06/14: * Fluids DC today. Creatinine improving. (8) Diabetic leg ulcer: ?Code(s): E11.622 - Type 2 diabetes mellitus with other skin ulcer; L97.909 - Non-pressure chronic ulcer of unspecified part of unspecified lower leg with unspecified severity ?Status:?Acute ?Assessment and Plan: * Wound consult * Photos taken * Daily dressing changes 06/14: * Nystatin to skin folds to decrease moisture * Right lower posterior leg wound with daily wound changes * Right foot wound with daily changes * Coccyx wound with daily changes * Wound care orders were taken from recent home health notes. * Wound care will consult and see Friday and can make changes as they see fit. 06/18: * Patient fighting nursing staff about changing dressing 06/20: wound healing nicely, clean and apply santal as family was doing from home. (9) PHYLICIA on CPAP: ?Code(s): G47.33 - Obstructive sleep apnea (adult) (pediatric) ?Status:?Acute ?Assessment and Plan: ?CPAP AT NIGHTTIME 06/17: Pending SNF placement/insurance auth 06/18: Anticipated SNF discharge tomorrow 06/19: Still awaiting insurance authorization for SNF discharge 06/20: Insurance denied SNF authorization, family unable to take patient home, peer to peer on Friday Time Spent With Patient Time with patient: 25 - 35 minutes Subjective Date/time seen: 06/21/23 10:10 Interval history: Insurance declined to authorize SNF for discharge. They are not available over the weekend for a peer to peer. Family unable to take patient home given her level of confusion. She will remain hospitalized and we will contact insurance company on Friday. Of note, patient's daughter was able to finally get the patient to allow us to remove bandage on right leg wound. We will continue applying Santyl and dressing as family was doing prior to hospitalization. Wound is healing well. No signs of suprainfection. Review of Systems Review of Systems: All systems reviewed & are unremarkable except as noted in HPI and below Exam Narrative: GENERAL: Pleasant, in no acute distress. Well-nourished. - EYES: EOMI. Anicteric. - HENT: Moist mucous membranes. - LUNGS: Clear to auscultation bilateral ly, no wheezing, rhonchi, or rales. - CARDIOVASCULAR: Mildly tachycardic ra te and consistent rhythm. No murmur. No JVD. - ABDOMEN: Soft, non-tender and non-dist ended. No palpable masses. - EXTREMITIES: No edema. Peripheral puls es 2+. Non-tender. - NEUROLOGIC: No focal neurological defi cits. CN II-XII grossly intact. General weakness - PSYCHIATRIC: Awake, Alert and oriented to person. Appropriate mood and affect. - SKIN: No rashes or lesions. Warm. - LYMPH: No cervical lymphadenopathy. Objective Data Vital Signs Vital Signs: Vital Signs - 24 hr 06/20/23 14:00 06/20/23 20:00 06/20/23 21:01 Temperature 36.7 C 36.3 C L Pulse Rate 98 98 75 Respiratory Rate 18 18 16 Blood Pressure 120/58 L 135/54 L Pulse Oximetry 93 93 96 Oxygen Delivery Room Air 06/21/23 04:46 06/21/23 08:23 06/21/23 08:00 Temperature 36.3 C L Pulse Rate 95 85 Respiratory Rate 16 Blood Pressure 131/66 Pulse Oximetry 97 Oxygen Delivery Room Air Intake/Output Intake/Output: Intake & Output 06/18/23 06/19/23 06/20/23 06/21/23 23:59 23:59 23:59 23:59 Intake Total 1410 1620 1040 370 Balance 1410 1620 1040 370 Meds/Results Medications: Active Medications Generic Name Dose Route Start Last Admin Trade Name Freq PRN Reason Stop Dose Admin Acetaminophen 650 mg 06/15/23 16:07 Acetaminophen 325 Mg Tablet PO Q4H PRN Mild Pain (1-3) or Fever Alprazolam 0.25 mg 06/19/23 15:00 06/20/23 09:21 Alprazolam (*Crx) 0.25 Mg Tablet PO 0.25 mg TID PRN Administration Agitation Cilostazol 100 mg 06/14/23 08:00 06/21/23 08:23 Cilostazol 100 Mg Tablet PO 100 mg BIDWM PREMA Administration Collagenase 1 applic 06/22/23 09:00 Collagenase Oint 30 Gm Tube TOPICAL DAILY PREMA Dextrose 12.5 gm 06/14/23 15:12 Dextrose 50% 25 Gm/50 Ml Syringe IV PUSH PRN PRN Hypoglycemia Protocol Enoxaparin Sodium 40 mg 06/16/23 09:00 06/21/23 08:24 Enoxaparin 40 Mg/0.4 Ml Syringe SUB-Q 40 mg DAILY PREMA Administration Furosemide 20 mg 06/21/23 09:50 Furosemide 20 Mg Tablet PO QAM PREMA Glucagon 1 mg 06/14/23 15:12 Glucagon For Inj 1 Mg Vial IM PRN PRN Hypoglycemia Protocol Glucose 15 gm 06/14/23 15:12 Glucose Oral Gel 15 Gm Of Glucse In 37.5 Gm Tube PO PRN PRN Hypoglycemia Protocol Dextrose 1,000 mls @ 100 mls/hr 06/14/23 15:12 Dextrose 5% 1,000 Ml IVPB PRN PRN Hypoglycemia Protocol Lactobacillus Acidophilus 2 tablet 06/14/23 09:00 06/21/23 08:23 Acidophilus/Bulgaricus Chewable Tablet BY MOUTH 2 tablet DAILY PREMA Administration Levothyroxine Sodium 125 mcg 06/21/23 06:30 06/21/23 05:08 Levothyroxine Sodium 125 Mcg Tablet PO 125 mcg DAILY@0630 PREMA Administration Magnesium Oxide 400 mg 06/15/23 16:15 06/21/23 08:23 Magnesium Oxide 400 Mg Tablet PO 400 mg DAILY PREMA Administration Metoprolol Succinate 75 mg 06/19/23 09:00 06/21/23 08:23 Metoprolol Succinate Ext Rel 25 Mg Tabcr PO 75 mg DAILY PREMA Administration Miconazole Nitrate 1 applic 06/14/23 09:00 06/21/23 08:24 Miconazole 2% Antifungal Ointment 56 Gm TOPICAL 1 applic DAILY PREMA Administration Ondansetron HCl 4 mg 06/16/23 14:45 Ondansetron Inj 4 Mg/2 Ml Vial IV PUSH Q4H PRN Nausea And Vomiting Spironolactone 25 mg 06/22/23 09:00 Spironolactone 25 Mg Tablet PO DAILY [facility] Tolnaftate 1 applic 06/15/23 21:00 06/21/23 08:24 Tolnaftate 1% Powder 45 Gm Btl TOPICAL 1 applic Q12HR PREMA Administration Tramadol HCl 50 mg 06/14/23 00:53 06/19/23 20:12 Tramadol Hcl (*Crx) 50 Mg Tablet PO 50 mg QID PRN Administration Pain Radiology Results: ITS Impressions Head CT 06/13/23 14:55 IMPRESSION: Given the history of gait disturbance, altered mental status and dilated ventricles, communicating hydrocephalus should be considered Cerebral atherosclerosis and chronic small vessel ischemic changes of the cerebral white matter Venous Doppler Study 06/13/23 14:59 IMPRESSION: 1. No deep venous thrombosis. Abdomen/Pelvis CT 06/13/23 15:00 IMPRESSION: 1. No acute intra-abdominal/pelvic process. 2. Small sliding-type hiatal hernia. Renal Ultrasound 06/14/23 18:07 IMPRESSION: Unremarkable renal sonogram findings. Echogenic liver, most commonly due to steatosis but also can be seen with hepatitis and fibrosis Labs Labs: Laboratory Results - last 24 hr 06/20/23 06/20/23 06/20/23 05:27 12:47 17:19 WBC RBC Hgb Hct MCV MCH MCHC RDW Plt Count MPV Immature Gran % (Auto) Neut % (Auto) Lymph % (Auto) [place] % (Auto) Eos % (Auto) Baso % (Auto) Lymph # (Auto) [place] # (Auto) Eos # (Auto) Baso # (Auto) Abs Immat Gran (auto) Absolute Neuts (auto) Absolute Nucleated RBC Nucleated RBC % Sodium Potassium Chloride Carbon Dioxide Anion Gap BUN Creatinine Estim Creat Clear Calc Estimated GFR Glucose POC Capillary Glucose 110 H 95 Calcium Magnesium Total Bilirubin AST ALT Alkaline Phosphatase Total Protein Albumin TSH (Reflex) 0.021 L Free T4 2.67 H 06/20/23 06/21/23 06/21/23 21:04 05:29 08:13 WBC 7.6 RBC 4.12 L Hgb 11.1 L Hct 35.6 L MCV 86.4 MCH 26.9 MCHC 31.2 L RDW 16.3 H Plt Count 337 MPV 11.0 H Immature Gran % (Auto) 0.3 Neut % (Auto) 63.7 Lymph % (Auto) 22.9 [place] % (Auto) 10.4 H Eos % (Auto) 2.0 Baso % (Auto) 0.7 Lymph # (Auto) 1.74 [place] # (Auto) 0.8 H Eos # (Auto) 0.2 Baso # (Auto) 0.1 Abs Immat Gran (auto) 0.02 Absolute Neuts (auto) 4.9 Absolute Nucleated RBC 0.000 Nucleated RBC % 0.0 Sodium 136 L Potassium 3.6 Chloride 106 Carbon Dioxide 27 Anion Gap 3 L BUN 13 Creatinine 0.90 Estim Creat Clear Calc 50 Estimated GFR > 60 Glucose 104 POC Capillary Glucose 102 102 Calcium 9.4 Magnesium 1.8 Total Bilirubin 0.4 AST 25 ALT 10 Alkaline Phosphatase 64 Total Protein 7.0 Albumin 3.0 L TSH (Reflex) Free T4 Quality VTE Prophylaxis VTE prophylaxis: pharmacologic ordered
[2023-06-21] MEDS: FUROSEMIDE 20 MG TABLET PO (12:05)
[2023-06-21 14:32] VITALS: BP 121/45; PULSE 74; RESP 18; TEMP 36.7; O2SAT 100
[2023-06-21 15:15] VITALS: BMI 10.0
[2023-06-21 20:00] VITALS: PULSE 96; RESP 16; O2SAT 100
[2023-06-21 20:13] VITALS: BP 116/64; PULSE 96; RESP 16; TEMP 36.7; O2SAT 100
[2023-06-21] MEDS: traMADol HCL (*CRX) 50 MG TABLET PO (20:25)
[2023-06-21] MEDS: ALPRAZolam (*CRX) 0.25 MG TABLET PO (20:25)
[2023-06-22 04:40] VITALS: BP 128/49; PULSE 102; RESP 16; TEMP 36.6; O2SAT 96
[2023-06-22] MEDS: LEVOTHYROXINE SODIUM 125 MCG TABLET PO (05:33)
[2023-06-22 05:46] LABS: Alanine Aminotransferase 9 U/L (6-35); Albumin Level 2.8 g/dL (3.5-5.1); Alkaline Phosphatase 62 U/L (38-126); Anion Gap 2 mmol/L (4-12); Aspartate Amino Transferase 24 U/L (14-36); Basophils Absolute Auto 0.1 K/mm3 (0.0-0.1); Basophils Percent Auto 0.7 % (0.2-1.2); Bilirubin,Total 0.5 mg/dL (0.2-1.3); Blood Urea Nitrogen 13 mg/dL (7-17); Carbon Dioxide 27 mmol/L (22-30); Chloride 104 mmol/L (98-107); Eosinophils Absolute Auto 0.1 K/mm3 (0-0.3); Estimated CRCL calculation 50 ml/min; Estimated Glomerular Filt Rate > 60; Glucose 98 mg/dL (65-110); Hematocrit 33.1 % (37.0-47.0); Hemoglobin 10.3 g/dL (12.0-15.0); Immature Granulocyte Absolute 0.02 K/mm3 (0.00-0.031); Immature Granulocyte Percent A 0.3 % (0-0.5); Lymphocytes Absolute Auto 1.97 K/mm3 (0.9-3.2); Lymphocytes Percent Auto 28.8 % (18.3-44.2); Magnesium 1.7 mg/dL (1.6-2.3); Mean Corpuscular HGB Conc 31.1 g/dl (32-36); Mean Corpuscular Volume 86.6 fl (80-100); Mean Platelet Volume 11.3 fl (7.4-10.4); Monocytes Absolute Auto 0.8 K/mm3 (0.1-0.6); Monocytes Percent Auto 11.8 % (2.6-8.5); Neutrophils Absolute Auto 3.9 K/mm3 (1.3-6.7); Neutrophils Percent Auto 56.4 % (45.5-73.1); Platelet Count Result 309 k/mm3 (150-375); Potassium 3.6 mmol/L (3.4-5.0); Red Blood Count 3.82 M/mm3 (4.2-5.4); Red Cell Distribution Width 16.2 % (11.5-14.5); Sodium 133 mmol/L (137-145); White Blood Count 6.8 K/mm3 (4.5-10.0)
[2023-06-22] MEDS: ENOXAPARIN 40 MG/0.4 ML SYRINGE SUB-Q (08:42)
[2023-06-22] MEDS: MAGNESIUM OXIDE 400 MG TABLET PO (08:42)
[2023-06-22] MEDS: ACIDOPHILUS/BULGARICUS CHEWABLE TABLET 2 TABLET BY MOUTH (08:42)
[2023-06-22] MEDS: cilostazoL 100 MG TABLET PO ×2 (08:42→16:23)
[2023-06-22] MEDS: FUROSEMIDE 20 MG TABLET PO (08:42)
[2023-06-22] MEDS: METOPROLOL SUCCINATE EXT REL 25 MG TABCR 75 MG PO (08:42)
[2023-06-22] MEDS: SPIRONOLACTONE 25 MG TABLET PO (08:42)
[2023-06-22] MEDS: TOLNAFTATE 1% POWDER 45 GM BTL 1 APPLIC TOPICAL ×2 (08:43→20:54)
[2023-06-22] MEDS: COLLAGENASE OINT 30 GM TUBE 1 APPLIC TOPICAL (08:43)
--- NOTE | 2023-06-22 11:34 | P.PNIM_ITS ---
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: unspecified intermediate insulin use status Diabetes mellitus complication status: without complication Qualified Code(s): E11.9 - Type 2 diabetes mellitus without complications Code(s): E11.9 - Type 2 diabetes mellitus without complications Status: Chronic (5) NPH (normal pressure hydrocephalus): Code(s): G91.2 - (Idiopathic) normal pressure hydrocephalus Status: Acute (6) Neurologic gait dysfunction: Code(s): R26.9 - Unspecified abnormalities of gait and mobility Status: Acute Plan (1) UTI (urinary tract infection): ?Qualifiers: ?Hematuria presence:?without hematuria??Urinary tract infection type:?s ite unspecified? Qualified Code(s):?N39.0 - Urinary tract infection, site not specified ?Code(s): N39.0 - Urinary tract infection, site not specified ?Status:?Acute ?Assessment and Plan: UA grossly positive for UTI * Started on meropenem * IV fluids at 75 ml * Urine culture pending * Blood culture pending 06/14: * Urine culture is growing E coli.? Sensitivities pending. * Continue meropenem * Stopping IV fluids as her creatinine has decreased to 1.7 (baseline ranging 1.1-1.9) * She is eating and drinking appropriately * P.r.n. Tylenol as needed for mild pain or fever 06/15: * ESBL already on meropenem * Can increase dose to 1 gram q 12 per ID pharmacist * She needs two more days and then she is good to go to SNF 06/16: Patient is afebrile, blood pressure is stable blood culture no growth, continue meropenem today 06/17: Continue meropenem pending SNF placement 06/19: Meropenem completing today. 06/20: treatment completed (2) Altered mental status: ?Qualifiers: ?Altered mental status type:?unspecified? Qualified Code(s):?R41.82 - Altered mental status, unspecified ?Code(s): R41.82 - Altered mental status, unspecified ?Status:?Acute ?Assessment and Plan: UTI versus hydrocephalus versus dementia * Family states she has been more confused over the last couple months * CT head shows dilated ventricles concerning for possible communicating hydrocephalus, cerebral arteriosclerosis and chronic small-vessel ischemic changes noted * Patient has recurrent urinary incontinence with weakness and impaired gait * Consulted neurology, recommendations appreciated * Reorientation as needed * Delirium precautions * Fall precaution 06/14: * Neurology discuss with family further workup of hydrocephalus including transfer to tertiary care center for cisternogram.? Family is in discussion over this. * EEG today * Patient remains oriented to self only 06/15: * Does not appear to be improving with resolution of her UTI * Outpatient neurosurgery consult at discharge 06/18: Significant sundowning symptoms. Ordered p.r.n. low-dose alprazolam for agitation. Considered Seroquel but it is QT prolonging 06/19: Unchanged 06/20: unchanged (3) Acute kidney injury: ?Code(s): N17.9 - Acute kidney failure, unspecified ?Status:?Acute ?Assessment and Plan: Creatinine baseline appears to be 1.2-1.9 * Creatinine 2.7 on admission * NS at 75 ml * Holding lasix and lisinopril * Avoid nephrotoxic medications * Daily CMP 06/14: * Creatinine 1.7 * IV fluids discontinued * She is eating and drinking without issue 06/15: * Stable 06/16: Kidney function continue to improve, BUN 17, creatinine 1.1 today 06/17: Stable and improving (4) Generalized weakness: ?Code(s): R53.1 - Weakness ?Status:?Acute ?Assessment and Plan: PT, OT consulted for assistance with placement recommendations. Family can no longer manage patient's care at home. 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 Qualified Code(s):?E11.9 - Type 2 diabetes mellitus without complications ?Code(s): E11.9 - Type 2 diabetes mellitus without complications ?Status:?Acute ?Assessment and Plan: Hgb A1C 6.4% on Farxiga at home * Held due to GFR * ACHS checks * hypoglycemic protocol PRN * Fasting labs less than 150 06/14: * Blood glucose ranging 114-141 06/20: patient fighting nursing staff regarding blood sugar checks. She has not required sliding scale insulin during this hospitalization. Change fingerstick glucose to PRN (6) Essential hypertension: ?Code(s): I10 - Essential (primary) hypertension ?Status:?Acute ?Assessment and Plan: * Blood pressures are currently running low * Holding agents at this time * Q 8 hour VS 06/14: * Blood pressures reviewed * Continuing to hold antihypertensives (7) Diastolic congestive heart failure: ?Code(s): I50.30 - Unspecified diastolic (congestive) heart failure ?Status:?Acute ?Assessment and Plan: Gentle fluids at 75 ml per hour for NELSON 06/14: * Fluids DC today. Creatinine improving. (8) Diabetic leg ulcer: ?Code(s): E11.622 - Type 2 diabetes mellitus with other skin ulcer; L97.909 - Non-pressure chronic ulcer of unspecified part of unspecified lower leg with unspecified severity ?Status:?Acute ?Assessment and Plan: * Wound consult * Photos taken * Daily dressing changes 06/14: * Nystatin to skin folds to decrease moisture * Right lower posterior leg wound with daily wound changes * Right foot wound with daily changes * Coccyx wound with daily changes * Wound care orders were taken from recent home health notes. * Wound care will consult and see Friday and can make changes as they see fit. 06/18: * Patient fighting nursing staff about changing dressing 4/13: wound healing nicely, clean and apply santal as family was doing from home. (9) PHYLICIA on CPAP: ?Code(s): G47.33 - Obstructive sleep apnea (adult) (pediatric) ?Status:?Acute ?Assessment and Plan: ?CPAP AT NIGHTTIME 06/17: Pending SNF placement/insurance auth 06/18: Anticipated SNF discharge tomorrow 06/19: Still awaiting insurance authorization for SNF discharge 06/20: Insurance denied SNF authorization, family unable to take patient home, peer to peer on Wednesday 06/21: Will complete peer to peer tomorrow to attempt to get SNF authorized. Time Spent With Patient Time with patient: 25 - 35 minutes Subjective Date/time seen: 06/22/23 11:34 Interval history: Therapy continues to recommend SNF upon discharge due to diminished ability to ambulate. Patient was previously ambulatory at home and has been making some progress with therapy but is only able to walk about 6-8 ft currently. Insurance has denied SNF level of care and peer to peer is schedule tomorrow. Urinary tract infection has treated. Right leg wound and buttock being Santyl and dressing daily. Patient is forgetful stressing and requires assistance in doing so. Patient denies any pain shortness of breath fever chills nausea vomiting. Review of Systems Review of Systems: All systems reviewed & are unremarkable except as noted in HPI and below Exam Narrative: GENERAL: Pleasant, in no acute distress. Well-nourished. - EYES: EOMI. Anicteric. - HENT: Moist mucous membranes. - LUNGS: Clear to auscultation bilateral ly, no wheezing, rhonchi, or rales. - CARDIOVASCULAR: normal rate and consi stent rhythm. No murmur. No JVD. - ABDOMEN: Soft, non-tender and non-dist ended. No palpable masses. - EXTREMITIES: No edema. Peripheral puls es 2+. Non-tender. - NEUROLOGIC: CN II-XII grossly intact. General weakness with gait abnormality - PSYCHIATRIC: Awake, Alert and oriented to person. Appropriate mood and affect. - SKIN: No rashes or lesions. Warm. - LYMPH: No cervical lymphadenopathy. Objective Data Vital Signs Vital Signs: Vital Signs - 24 hr 06/21/23 14:32 06/21/23 20:13 06/21/23 20:00 Temperature 36.7 C 36.7 C Pulse Rate 74 96 96 Respiratory Rate 18 16 16 Blood Pressure 121/45 L 116/64 Pulse Oximetry 100 100 100 Oxygen Delivery Room Air 06/22/23 04:40 06/22/23 08:42 Temperature 36.6 C Pulse Rate 102 H Respiratory Rate 16 Blood Pressure 128/49 L Pulse Oximetry 96 Oxygen Delivery Room Air Intake/Output Intake/Output: Intake & Output 06/19/23 06/20/23 06/21/23 06/22/23 23:59 23:59 23:59 23:59 Intake Total 1620 1040 910 270 Balance 1620 1040 910 270 Meds/Results Medications: Active Medications Generic Name Dose Route Start Last Admin Trade Name Freq PRN Reason Stop Dose Admin Acetaminophen 650 mg 06/15/23 16:07 Acetaminophen 325 Mg Tablet PO Q4H PRN Mild Pain (1-3) or Fever Alprazolam 0.25 mg 06/19/23 15:00 06/21/23 20:25 Alprazolam (*Crx) 0.25 Mg Tablet PO 0.25 mg TID PRN Administration Agitation Cilostazol 100 mg 06/14/23 08:00 06/22/23 08:42 Cilostazol 100 Mg Tablet PO 100 mg BIDWM PREMA Administration Collagenase 1 applic 06/22/23 09:00 06/22/23 08:43 Collagenase Oint 30 Gm Tube TOPICAL 1 applic DAILY PREMA Administration Dextrose 12.5 gm 06/14/23 15:12 Dextrose 50% 25 Gm/50 Ml Syringe IV PUSH PRN PRN Hypoglycemia Protocol Enoxaparin Sodium 40 mg 06/16/23 09:00 06/22/23 08:42 Enoxaparin 40 Mg/0.4 Ml Syringe SUB-Q 40 mg DAILY PREMA Administration Furosemide 20 mg 06/21/23 09:50 06/22/23 08:42 Furosemide 20 Mg Tablet PO 20 mg QAM PREMA Administration Glucagon 1 mg 06/14/23 15:12 Glucagon For Inj 1 Mg Vial IM PRN PRN Hypoglycemia Protocol Glucose 15 gm 06/14/23 15:12 Glucose Oral Gel 15 Gm Of Glucse In 37.5 Gm Tube PO PRN PRN Hypoglycemia Protocol Dextrose 1,000 mls @ 100 mls/hr 06/14/23 15:12 Dextrose 5% 1,000 Ml IVPB PRN PRN Hypoglycemia Protocol Lactobacillus Acidophilus 2 tablet 06/14/23 09:00 06/22/23 08:42 Acidophilus/Bulgaricus Chewable Tablet BY MOUTH 2 tablet DAILY PREMA Administration Levothyroxine Sodium 125 mcg 06/21/23 06:30 06/22/23 05:33 Levothyroxine Sodium 125 Mcg Tablet PO 125 mcg DAILY@0630 PREMA Administration Magnesium Oxide 400 mg 06/15/23 16:15 06/22/23 08:42 Magnesium Oxide 400 Mg Tablet PO 400 mg DAILY PREMA Administration Metoprolol Succinate 75 mg 06/19/23 09:00 06/22/23 08:42 Metoprolol Succinate Ext Rel 25 Mg Tabcr PO 75 mg DAILY PREMA Administration Miconazole Nitrate 1 applic 06/14/23 09:00 06/22/23 08:43 Miconazole 2% Antifungal Ointment 56 Gm TOPICAL 1 applic DAILY PREMA Administration Ondansetron HCl 4 mg 06/16/23 14:45 Ondansetron Inj 4 Mg/2 Ml Vial IV PUSH Q4H PRN Nausea And Vomiting Spironolactone 25 mg 06/22/23 09:00 06/22/23 08:42 Spironolactone 25 Mg Tablet PO 25 mg DAILY [facility] Administration Tolnaftate 1 applic 06/15/23 21:00 06/22/23 08:43 Tolnaftate 1% Powder 45 Gm Btl TOPICAL 1 applic Q12HR PREMA Administration Tramadol HCl 50 mg 06/14/23 00:53 06/21/23 20:25 Tramadol Hcl (*Crx) 50 Mg Tablet PO 50 mg QID PRN Administration Pain Radiology Results: ITS Impressions Head CT 06/13/23 14:55 IMPRESSION: Given the history of gait disturbance, altered mental status and dilated ventricles, communicating hydrocephalus should be considered Cerebral atherosclerosis and chronic small vessel ischemic changes of the cerebral white matter Venous Doppler Study 06/13/23 14:59 IMPRESSION: 1. No deep venous thrombosis. Abdomen/Pelvis CT 06/13/23 15:00 IMPRESSION: 1. No acute intra-abdominal/pelvic process. 2. Small sliding-type hiatal hernia. Renal Ultrasound 06/14/23 18:07 IMPRESSION: Unremarkable renal sonogram findings. Echogenic liver, most commonly due to steatosis but also can be seen with hepatitis and fibrosis Labs Labs: Laboratory Results - last 24 hr 06/22/23 05:11 WBC 6.8 RBC 3.82 L Hgb 10.3 L Hct 33.1 L MCV 86.6 MCH 27.0 MCHC 31.1 L RDW 16.2 H Plt Count 309 MPV 11.3 H Immature Gran % (Auto) 0.3 Neut % (Auto) 56.4 Lymph % (Auto) 28.8 [place] % (Auto) 11.8 H Eos % (Auto) 2.0 Baso % (Auto) 0.7 Lymph # (Auto) 1.97 [place] # (Auto) 0.8 H Eos # (Auto) 0.1 Baso # (Auto) 0.1 Abs Immat Gran (auto) 0.02 Absolute Neuts (auto) 3.9 Absolute Nucleated RBC 0.000 Nucleated RBC % 0.0 Sodium 133 L Potassium 3.6 Chloride 104 Carbon Dioxide 27 Anion Gap 2 L BUN 13 Creatinine 0.90 Estim Creat Clear Calc 50 Estimated GFR > 60 Glucose 98 Calcium 9.0 Magnesium 1.7 Total Bilirubin 0.5 AST 24 ALT 9 Alkaline Phosphatase 62 Total Protein 6.0 L Albumin 2.8 L Pulse Oximetry SpO2 results: 96-100% on room air Attestation: I personally reviewed and interpreted this pulse oximetry as follows: Interpretation: no need for supplemental oxygenation at this time Quality VTE Prophylaxis VTE prophylaxis: pharmacologic ordered
[2023-06-22 14:37] VITALS: BP 103/58; PULSE 87; RESP 16; TEMP 36.7; O2SAT 99
[2023-06-22 19:35] VITALS: PULSE 87; RESP 16; O2SAT 99
[2023-06-22] MEDS: traMADol HCL (*CRX) 50 MG TABLET PO (20:53)
[2023-06-22] MEDS: ALPRAZolam (*CRX) 0.25 MG TABLET PO (20:54)
[2023-06-22 22:00] VITALS: O2SAT 99
[2023-06-22 22:27] VITALS: BP 101/44; PULSE 90; RESP 20; TEMP 36.6; O2SAT 98
[2023-06-23 05:27] LABS: Basophils Absolute Auto 0.1 K/mm3 (0.0-0.1); Basophils Percent Auto 0.7 % (0.2-1.2); Eosinophils Absolute Auto 0.1 K/mm3 (0-0.3); Eosinophils Percent Auto 1.4 % (0-4.4); Hematocrit 33.3 % (37.0-47.0); Hemoglobin 10.4 g/dL (12.0-15.0); Immature Granulocyte Absolute 0.03 K/mm3 (0.00-0.031); Immature Granulocyte Percent A 0.4 % (0-0.5); Lymphocytes Absolute Auto 1.96 K/mm3 (0.9-3.2); Lymphocytes Percent Auto 25.7 % (18.3-44.2); Mean Corpuscular HGB Conc 31.2 g/dl (32-36); Mean Corpuscular Hemoglobin 26.7 pg (26-34); Mean Corpuscular Volume 85.4 fl (80-100); Monocytes Absolute Auto 0.8 K/mm3 (0.1-0.6); Monocytes Percent Auto 10.8 % (2.6-8.5); Neutrophils Absolute Auto 4.7 K/mm3 (1.3-6.7); Platelet Count Result 307 k/mm3 (150-375); White Blood Count 7.6 K/mm3 (4.5-10.0)
[2023-06-23 05:46] LABS: Alanine Aminotransferase 10 U/L (6-35); Albumin Level 2.9 g/dL (3.5-5.1); Alkaline Phosphatase 68 U/L (38-126); Anion Gap 5 mmol/L (4-12); Aspartate Amino Transferase 27 U/L (14-36); Bilirubin,Total 0.5 mg/dL (0.2-1.3); Blood Urea Nitrogen 18 mg/dL (7-17); Calcium 9.3 mg/dL (8.4-10.2); Carbon Dioxide 25 mmol/L (22-30); Chloride 103 mmol/L (98-107); Estimated CRCL calculation 45 ml/min; Estimated Glomerular Filt Rate 54; Glucose 103 mg/dL (65-110); Magnesium 1.8 mg/dL (1.6-2.3); Potassium 3.5 mmol/L (3.4-5.0); Sodium 133 mmol/L (137-145)
[2023-06-23 06:00] VITALS: BP 136/70; PULSE 103; RESP 20; TEMP 36.1; O2SAT 99
[2023-06-23] MEDS: LEVOTHYROXINE SODIUM 125 MCG TABLET PO (06:11)
[2023-06-23] MEDS: SPIRONOLACTONE 25 MG TABLET PO (09:15)
[2023-06-23] MEDS: cilostazoL 100 MG TABLET PO (09:15)
[2023-06-23] MEDS: MAGNESIUM OXIDE 400 MG TABLET PO (09:15)
[2023-06-23] MEDS: ENOXAPARIN 40 MG/0.4 ML SYRINGE SUB-Q (09:15)
[2023-06-23] MEDS: ACIDOPHILUS/BULGARICUS CHEWABLE TABLET 2 TABLET BY MOUTH (09:15)
[2023-06-23] MEDS: FUROSEMIDE 20 MG TABLET PO (09:15)
[2023-06-23 09:16] VITALS: PULSE 72
[2023-06-23] MEDS: METOPROLOL SUCCINATE EXT REL 25 MG TABCR 75 MG PO (09:16)
[2023-06-23] MEDS: TOLNAFTATE 1% POWDER 45 GM BTL 1 APPLIC TOPICAL (09:18)
[2023-06-23] MEDS: COLLAGENASE OINT 30 GM TUBE 1 APPLIC TOPICAL (09:18)
[2023-06-23 09:20] VITALS: O2SAT 93
--- NOTE | 2023-06-23 10:37 | PCNFU ---
Nutrition Follow-Up Complete: Increased protein energy needs related to wound healing as evidenced by unstageable pressure injury to sacrum goal: Adequate PO intake at least 75% meals and supplements Patient is has limited progress towards goal. We will continue current goal. Pt current nutrition is Heart Healthy. Last recorded weight is 94.9 kg, no new weight to report. Bowel Motility: +BM reported 06/21 Labs Reviewed:BUN 18, NA 133, Alb 2.9 Meds Noted: Synthroid, Lasix Skin: unstageable-saccum Additional Notes: Patient remains on a heart healthy diet. Oral Intake about 30% for breakfast. Overall intakes have been 5-50% of meals. Patient is receiving ensure compact BID and Jacob BID for wound healing. Jacob was consumed for breakfast and ensure compact is being drank as well. Plans for SNF for discharge. Agree with diet orders. Monitor intakes, weights, labs, supplement tolerance, plan of care Follow up in 5 days
[2023-06-23 14:00] VITALS: BP 125/56; PULSE 76; RESP 18; TEMP 36.4; O2SAT 99
--- NOTE | 2023-06-23 14:05 | PM.DS ---
DS: Admitting Diagnosis Discharge Date 06/23/2023 Admitting Diagnosis UTI, altered mental status, NELSON, generalized weakness, type 2 diabetes, essential hypertension, foot ulcer right, diastolic congestive heart failure, diabetic leg ulcer, PHYLICIA on CPAP, aortic stenosis DS: Discharge Diagnosis Discharge Diagnosis (1) UTI (urinary tract infection): Qualifiers: Hematuria presence: without hematuria Urinary tract infection type: site unspecified Qualified Code(s): N39.0 - Urinary tract infection, site not specified Code(s): N39.0 - Urinary tract infection, site not specified Status: Resolved (2) Acute kidney injury: Code(s): N17.9 - Acute kidney failure, unspecified Status: Resolved (3) PHYLICIA on CPAP: Code(s): G47.33 - Obstructive sleep apnea (adult) (pediatric) Status: Chronic (4) DM type 2 (diabetes mellitus, type 2): Qualifiers: Diabetes mellitus complication status: without complication 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 half-way insulin use status Qualified Code(s): E11.9 - Type 2 diabetes mellitus without complications Code(s): E11.9 - Type 2 diabetes mellitus without complications Status: Chronic (5) NPH (normal pressure hydrocephalus): Code(s): G91.2 - (Idiopathic) normal pressure hydrocephalus Status: Acute (6) Neurologic gait dysfunction: Code(s): R26.9 - Unspecified abnormalities of gait and mobility Status: Acute (7) Aortic stenosis: Code(s): I35.0 - Nonrheumatic aortic (valve) stenosis Status: Acute (8) History of prolapse of bladder: Code(s): Z87.448 - Personal history of other diseases of urinary system Status: Acute (9) Essential hypertension: Code(s): I10 - Essential (primary) hypertension Status: Acute (10) Altered mental status: Qualifiers: Altered mental status type: unspecified Qualified Code(s): R41.82 - Altered mental status, unspecified Code(s): R41.82 - Altered mental status, unspecified Status: Acute (11) Decubitus ulcer, buttock, right, unstageable: Code(s): L89.310 - Pressure ulcer of right buttock, unstageable Status: Acute DS: Summary Hospital Course Hospital Course: Patient had been admitted to the hospital for altered mental status concern for acute UTI possible normal pressure hydrocephalus. Patient having trouble ambulating who was working with therapy. Dementia symptoms seem to be getting worse. Patient treated for ESBL urine infection 7 days of meropenem. SNF was arranged but was delayed due to her initial declination from insurance company. Peer to peer completed and patient approved for SNF. she is receiving daily wound care management right lower extremity and buttocks. She is also working with therapy to increase ambulation. Status at Discharge Cognitive/behavioral status at discharge: awake, alert, confused Functional status at discharge: uses cane/walker Overall status at discharge: patient is progressing back to baseline Time Spent with Patient Time attestation: Total time spent providing and/or coordinating discharge services: 40 minutes Time spent: Greater than 30 minutes Exam Narrative: GENERAL: Pleasant, in no acute distress. Well-nourished. - EYES: EOMI. Anicteric. - HENT: Moist mucous membranes. - LUNGS: Clear to auscultation bilaterally, no wheezing, rhonchi, or rales. - CARDIOVASCULAR: normal rate and consistent rhythm. No murmur. No JVD. - ABDOMEN: Soft, non-tender and non-distended. No palpable masses. - EXTREMITIES: No edema. Peripheral pulses 2+. Non-tender. - NEUROLOGIC: CN II-XII grossly intact. General weakness with gait abnormality - PSYCHIATRIC: Awake, Alert and oriented to person. Appropriate mood and affect. - SKIN: No rashes or lesions. Warm. - LYMPH: No cervical lymphadenopathy. DS: Data Data Completed and Pending Completed studies during hospitalization: head CT, venous Doppler study, abdomen pelvis CT, renal ultrasound Labs on day of discharge: Labs from last 24 hours 06/23/23 05:11 WBC 7.6 RBC 3.90 L Hgb 10.4 L Hct 33.3 L MCV 85.4 MCH 26.7 MCHC 31.2 L RDW 16.0 H Plt Count 307 MPV 11.0 H Immature Gran % (Auto) 0.4 Neut % (Auto) 61.0 Lymph % (Auto) 25.7 [place] % (Auto) 10.8 H Eos % (Auto) 1.4 Baso % (Auto) 0.7 Lymph # (Auto) 1.96 [place] # (Auto) 0.8 H Eos # (Auto) 0.1 Baso # (Auto) 0.1 Abs Immat Gran (auto) 0.03 Absolute Neuts (auto) 4.7 Absolute Nucleated RBC 0.000 Nucleated RBC % 0.0 Sodium 133 L Potassium 3.5 Chloride 103 Carbon Dioxide 25 Anion Gap 5 BUN 18 H Creatinine 1.00 Estim Creat Clear Calc 45 Estimated GFR 54 L Glucose 103 Calcium 9.3 Magnesium 1.8 Total Bilirubin 0.5 AST 27 ALT 10 Alkaline Phosphatase 68 Total Protein 6.0 L Albumin 2.9 L Discharge Plan Discharge Attending physician on discharge: Chris Aleman Consulting providers: Reyes Alonso; Kristine Muñoz V.; Ron Nj; Ede Joy; Ron Bentley; Abe Nava; Vane Ramírez; Toney Richardson; Rosas Meyers; Maggie Spivey Discharging Clinician: Ron Nj Anticipated Discharge Date/Time: 06/23/23 14:17 Patient Disposition: SNF Activity: other - see discharge instructions Diet: heart healthy Wound Care Instructions: other - see discharge instructions Discharge Instructions: Diet: Heart Healthy with Ensure Compact BID and 1 packet Jacob BID Activity: PT/OT Eval/Treat, ambulate minimal distance with walker and assist x1-2, bedside commode recommended Wound care: Small amount of Santyl and daily dressing change to RLE. Apply antifungal barrier cream to bilateral buttock maceration and coccyx pressure injury every 12 hours. Leave open to air. CPAP: Use home machine or Autopap at night. Peer to Peer had to be completed to get SNF authorization. If patient does not participate with therapy insurance will force discharge per Dr. Ellis. Stand Alone Forms: Custodial Discharge Follow-up/Referrals: Anton Silva MD [Primary Care Provider] - Call for Appointment (Patient will need referral for cerebral cisternogram to investigate normal pressure hydrocephalus as an outpatient.) Discharge Medications: New magnesium oxide 400 mg (241.3 mg magnesium) Tablet 400 mg PO DAILY Qty: 0 0RF levothyroxine [Synthroid] 125 mcg Tablet 125 mcg PO DAILY@0630 Qty: 0 0RF tolnaftate 1 % Powder 1 applic topical Q12HR Qty: 0 0RF furosemide 20 mg Tablet 20 mg PO QAM Qty: 0 0RF metoprolol succinate [Toprol XL] 25 mg Tablet Extended Release 24 Hr 75 mg PO DAILY Qty: 0 0RF Continued Santyl 250 unit/gram ointment 1 applic topical DAILY Qty: 90 1RF Rx Instructions: sacrum and right lower leg Probiotic 10 billion cell capsule 10,000 mmu cells PO DAILY Qty: 10 0RF potassium chloride [Klor-Con] 20 mEq packet 20 meq PO DAILY Farxiga 5 mg tablet 5 mg PO DAILY Qty: 30 2RF cilostazol 100 mg tablet 100 mg PO BID Qty: 180 0RF cholecalciferol (vitamin D3) 50 mcg (2,000 unit) capsule 50 mcg PO DAILY Critic-Aid Clear AF(miconazol) 2 % ointment 1 applic topical DAILY nystatin 100,000 unit/gram powder 1 applic topical DAILY spironolactone [Aldactone] 25 mg tablet 25 mg PO DAILY Qty: 30 1RF ondansetron 8 mg tablet,disintegrating 8 mg PO Q8H PRN (Reason: nausea and vomiting) Qty: 30 0RF Discontinued metoprolol succinate 25 mg capsule,sprinkle,ER 24hr 37.5 mg PO DAILY Qty: 45 0RF lisinopril 20 mg tablet 20 mg PO DAILY Qty: 90 0RF tramadol 50 mg tablet 50 mg PO QID PRN (Reason: Pain) furosemide 40 mg tablet 60 mg PO QAM levothyroxine 150 mcg tablet 150 mcg PO DAILY Qty: 30 0RF No Action alprazolam 0.25 mg tablet 0.25 mg PO TID PRN (Reason: Agitation) Qty: 20 0RF tramadol 50 mg tablet 50 mg PO QID PRN (Reason: Pain) Qty: 20 0RF Date of admission: 06/15/23 16:32 Primary Care Provider: Anton Silva Admitting Provider: Aleks Holder Attending physician on admission: Chris Aleman Condition: Stable
[2023-06-23 16:40] LABS: SARS-CoV-2 RNA PCR Negative (Negative)
== END 2023-06-23 17:19 | DRG 690 ==
LOC: ANHED 15:21 → ANH3MED 17:55
PROVIDERS: Nurse Practitioner; Nurse Practitioner Acute Care; Admitting Provider Internal Medicine; Emergency Provider Emergency Medicine; PCP Internal Medicine; Visit Provider Internal Medicine
DX: N39.0 Urinary tract infection, site not specified (principal); I13.0 Hypertensive heart and chronic kidney disease with heart failure and stage 1 through stage 4 chronic kidney disease, or unspecified chronic kidney disease; I50.32 Chronic diastolic (congestive) heart failure; N17.9 Acute kidney failure, unspecified; G91.2 (Idiopathic) normal pressure hydrocephalus; L97.219 Non-pressure chronic ulcer of right calf with unspecified severity; L97.511 Non-pressure chronic ulcer of other part of right foot limited to breakdown of skin; I87.2 Venous insufficiency (chronic) (peripheral); I35.0 Nonrheumatic aortic (valve) stenosis; N18.30 Chronic kidney disease, stage 3 unspecified; E11.22 Type 2 diabetes mellitus with diabetic chronic kidney disease; E11.51 Type 2 diabetes mellitus with diabetic peripheral angiopathy without gangrene; E11.622 Type 2 diabetes mellitus with other skin ulcer; E11.621 Type 2 diabetes mellitus with foot ulcer; E03.9 Hypothyroidism, unspecified; E87.5 Hyperkalemia; E78.5 Hyperlipidemia, unspecified; E55.9 Vitamin D deficiency, unspecified; L89.310 Pressure ulcer of right buttock, unstageable; B96.20 Unspecified Escherichia coli [E. coli] as the cause of diseases classified elsewhere; M19.90 Unspecified osteoarthritis, unspecified site; R01.1 Cardiac murmur, unspecified; G47.33 Obstructive sleep apnea (adult) (pediatric); Z20.822 Contact with and (suspected) exposure to COVID-19; Z80.0 Family history of malignant neoplasm of digestive organs
CPT/HCPCS: 36415; 70450; 74176; 76775; 80048; 80053; 81001; 82948; 83735; 84439; 84443; 85025; 85610; 85730; 87040; 87086; 87186; 87635; 93005; 93971; 94640; 96361; 96365; 96366; 96372; 96375; 97110; 97116; 97161; 97165; 97530; 97535; 99285; A9270; G0378; J1650; J1940; J2185; J7030

== ENCOUNTER 2023-09-26 12:21 | Outpatient (NON) | payer MEDICARE, SELFPAY | END 2023-09-26 12:22 | disposition home or self-care (01) | PROVIDERS: PCP Internal Medicine; Visit Provider Internal Medicine | DX: S80.921A Unspecified superficial injury of right lower leg, initial encounter (principal); X58.XXXA Exposure to other specified factors, initial encounter | CPT/HCPCS: 87070; 87077; 87147; 87181; 87186; 87205 ==

== ENCOUNTER 2023-10-21 12:14 | Outpatient (NON) | payer MEDICARE, SELFPAY ==
[2023-10-21 13:31] LABS: Add Urine Microscopic? YES; Appearance Urine Cloudy (Clear); Bacteria Urine 4+ /hpf; Bilirubin Urine Negative (Negative); Blood Urine 2+ (Negative); Color Urine Yellow (Yellow); Glucose Urine UA 3+ mg/dL (Negative); Ketones Urine Negative (Negative); Leukocyte Esterase Ur 2+ LEU/UL (Negative); Nitrate Urine Positive (Negative); Protein Urine 1+ mg/dL (Negative); Specific Grav Ur 1.016 (1.001-1.035); Squamous Epithelial Cell Urine None Seen /hpf (Few); Urobilinogen Urine 0.2 mg/dL (<2.0); WBC Urine >100 /hpf (0-3)
== END 2023-10-21 12:15 | disposition home or self-care (01) ==
PROVIDERS: PCP Internal Medicine; Visit Provider Internal Medicine
DX: N30.00 Acute cystitis without hematuria (principal); R41.82 Altered mental status, unspecified
CPT/HCPCS: 81001; 87077; 87086; 87088; 87186

== ENCOUNTER 2023-10-27 19:12 | Inpatient (IN) | payer MEDICARE, SELFPAY ==
--- NOTE | ~2023-10-27 | XR_ITS ---
EXAMINATION: XR chest 1V portable Exam Date/Time: 10/27/2023 19:40 CDT HISTORY: AMS WITH UTI Comparison: 05/17/2023. RESULT: Lines, tubes, and devices: None. Lungs and pleura: Mild diffuse reticular opacities. Streaky subsegmental bibasilar opacities, greate r in the right lung base. Cardiomediastinal silhouette: Stable. Other: No acute osseous or upper abdominal finding. IMPRESSION: Mild initial edema. Likely subsegmental bibasilar atelectasis, infection not excluded. Reviewed, dictated and finalized at location K. IMPRESSION: Mild initial edema. Likely subsegmental bibasilar atelectasis, infection not ex cluded.
--- NOTE | ~2023-10-27 | CT_ITS ---
EXAMINATION: CT abdomen pelvis wo con DATE: 10/27/2023 22:02 INDICATION: Recurrent UTI TECHNIQUE: Computed tomography (CT) of the abdomen and pelvis was performed without intravenous contr ast. Automated exposure control and iterative reconstruction technique were employed. The dose-length product was 605.33 mGy-cm. COMPARISON: None. FINDINGS: Lower thorax: Mild septal thickening. Coronary artery calcifications. Aortic valve calcification. Joao ral annulus calcification. Liver: Normal. Biliary/Gallbladder: Gallbladder is absent. No bile duct dilation. Pancreas: No mass or duct dilation. Spleen: Normal. Adrenals:No mass. Kidneys: No suspicious mass, obstructing stone, or hydronephrosis. GI tract: Moderate hiatal hernia No small or large bowel dilation. Appendix not visualized. Mesentery/Peritoneum: No ascites, mass, or free air. Retroperitoneum: No mass. Atherosclerotic abdominal aortic and/or arterial calcifications. Pelvis: Pelvic organs are within normal limits. Soft Tissues: Soft tissues and body wall unremarkable. Bones: No acute osseous finding. IMPRESSION: No acute abdominopelvic process detected. Reviewed, dictated and finalized at location K.
--- NOTE | ~2023-10-27 | XR_ITS ---
XR abdomen/kub 1V 10/31/2023 15:50 INDICATION: Nausea with emesis TECHNIQUE: KUB COMPARISON: Comparison to multiple prior studies sequentially, with oldest reviewed study dated 12/09. FINDINGS: Bowel gas pattern is normal. There are cholecystectomy clips. There is severe lumbar spondy losis. There is moderate osteoarthritis of the hips. There is dextroscoliosis. There is no evidence o f free air, mass, organomegaly, ascites or obstruction. No abnormal calculi are seen. The bones isatu ear intact. IMPRESSION: 1: No acute abdominal abnormality identified. Reviewed, dictated and finalized at location B.
--- NOTE | ~2023-10-27 | CT_ITS ---
EXAMINATION: CT brain wo con DATE: 10/27/2023 22:02 INDICATION: AMS . TECHNIQUE: Computed tomography (CT) of the head was performed without intravenous contrast. The mA wa s adjusted according to patient size. Iterative reconstruction technique was employed. The dose-lengt h product was 605.33 mGy-cm. COMPARISON: 06/13/2023. FINDINGS: No acute intracranial hemorrhage or extra-axial fluid collection. No hydrocephalus, mass, or herniation. No acute ischemic infarct. Unremarkable dural venous sinus attenuation. No acute osseous abnormality. The aerated spaces are clear. Moderate atrophy and chronic white matter change. Atherosclerotic intracranial calcification. Bilater al lens replacements. IMPRESSION: No acute intracranial process. Reviewed, dictated and finalized at location K.
[2023-10-27 19:16] VITALS: PULSE 91; RESP 20; TEMP 36.6; O2SAT 98
--- NOTE | 2023-10-27 19:16 | ECG_ITS ---
Test Date: 2023-10-27 19:23:49 Measurements Intervals [place] Rate: 78 P: 14 GA: 166 QRS: -48 QRSD: 110 T: 84 QT: 412 QTc: 470 Interpretive Statements SINUS RHYTHM WITH MARKED SINUS ARRHYTHMIA LEFT AXIS DEVIATION [QRS AXIS < -30] LOW QRS VOLTAGE IN PRECORDIAL LEADS [QRS DEFLECTION < 1.0 mV IN CHEST LEADS] ANTERIOR MYOCARDIAL INFARCTION , PROBABLY OLD [40+ ms Q WAVE AND/OR ST/T ABNORMALITY IN V3/V4] No previous ECG available for comparison Electronically Signed On 10-28-2023 10:18:34 CDT by Eden Rosenberg M.D.
--- NOTE | 2023-10-27 19:22 | ED.GENADULT ---
HPI - General Adult General Chief complaint: Altered Mental Status Stated complaint: AMS History of Present Illness HPI narrative: This is a 78-year-old female with history of recurrent UTIs presenting for altered mental status. Patient was being treated for UTI with Augmentin. However condition continued to worsen. Today she is confused. She has a A&O x1 although typically A&O x4 baseline. She has no complaints other than feeling confused and being cold. She denies headaches chest pain difficulty breathing abdominal pain or urinary symptoms. She denies any falls. Patient is on Farxiga. Related Data Home Medications Medication Instructions Recorded Confirmed cholecalciferol (vitamin D3) 50 50 mcg PO DAILY 05/29/23 06/13/23 mcg (2,000 unit) capsule acetaminophen 500 mg tablet 1,000 mg PO Q6H PRN 08/15/23 (Acetaminophen Extra Strength) insulin aspart U-100 100 unit/mL See Rx Instructions subcut 08/15/23 (3 mL) subcutaneous pen (Novolog USEASDIRECTD FlexPen U-100 Insulin aspart) Allergies Allergy/AdvReac Type Severity Reaction Status Date / Time Influenza Virus Vaccines Allergy Unknown Anaphylaxis Verified 06/03/23 11:10 Sulfa (Sulfonamide AdvReac Intermediate Rash Verified 06/03/23 11:10 Antibiotics) 1 GENERAL ANESTHISIA LAST Allergy Unknown Other Uncoded 06/03/23 11:10 2 SURGS [facility] Past Medical History Medical History (Updated 10/27/23 @ 23:20 by Ashvin Fink MD) Aortic stenosis Benign essential hypertension BMI 38.0-38.9,adult Body mass index (BMI) 45.0-49.9, adult Chronic kidney disease, stage 3 Degenerative joint disease Diastolic congestive heart failure Essential hypertension Hyperlipidemia Hypothyroidism (acquired) Murmur, heart Nausea and vomiting in adult PHYLICIA on CPAP Peripheral vascular disease Tachycardia Type 2 diabetes mellitus Vitamin D deficiency Surgical History Surgical History History of bladder repair surgery For bladder prolapse. Family History Family History Mother Hypertension, Onset Age: 70 Cerebrovascular accident Patient's mother is Sibling Carcinoma of colon Other Family history of arthritis Family history of coronary artery disease Social History Social History Social History: Surrogate medical decision maker: Dago North, spouse. Code status: Full code. Smoking status: Never smoker Second hand tobacco smoke exposure: No Alcohol intake: never Substance use: never Substance use type: does not use Do You Feel Safe in your Home?: Yes Lack of Transportation: No Lack of Food: Never True Current Housing: I Have Housing Concerned About Future Housing: No Difficulty Paying Gas/Electric Bills: No Difficulty Paying for Meds: No Currently Unemployed: No Education: Trade/Vocational Certificate Difficulty w/ Childcare or Family Care: No Additional living arrangements comments: Lives with spouse in [place]. Spiritual care concerns: No Exam Narrative: APPEARANCE: No apparent distress. A&O x1 Head: atraumatic. EYES: EOMI, NOSE: Atraumatic NECK: Trachea midline, supple, no neck pain RESPIRATORY: No increased rate of breathing clear auscultation CARDIOVASCULAR: RRR, no peripheral edema ABDOMINAL: Distended but nontender with no guarding or rebound MUSCULOSKELETAl: No obvious deformities NEURO: A&O x1, moving all 4 extremities to commands SKIN:: Well healing venous stasis ulcer back of the right heel without evidence of infection PSYCHIATRIC: Normal affect Course Vital Signs Vital signs: Vital Signs Temperature 98 F 10/27/23 19:16 Pulse Rate 91 10/27/23 19:16 Respiratory Rate 20 10/27/23 19:16 Pulse Oximetry 98 10/27/23 19:16 Oxygen Delivery Room Air 10/27/23 19:16 Temperature 97.4 F L 0
[2023-10-27 19:32] LABS: Glucose Point of Care 162 mg/dl (65-105)
[2023-10-27 19:41] LABS: Basophils Absolute Auto 0.1 K/mm3 (0.0-0.1); Eosinophils Absolute Auto 0.3 K/mm3 (0-0.3); Eosinophils Percent Auto 4.3 % (0-4.4); Hematocrit 41.7 % (37.0-47.0); Hemoglobin 13.5 g/dL (12.0-15.0); Immature Granulocyte Absolute 0.02 K/mm3 (0.00-0.031); Immature Granulocyte Percent A 0.3 % (0-0.5); Lymphocytes Absolute Auto 2.28 K/mm3 (0.9-3.2); Mean Corpuscular HGB Conc 32.4 g/dl (32-36); Mean Corpuscular Hemoglobin 28.4 pg (26-34); Mean Corpuscular Volume 87.6 fl (80-100); Mean Platelet Volume 10.6 fl (7.4-10.4); Monocytes Absolute Auto 0.9 K/mm3 (0.1-0.6); Monocytes Percent Auto 11.7 % (2.6-8.5); Neutrophils Absolute Auto 3.8 K/mm3 (1.3-6.7); Neutrophils Percent Auto 51.7 % (45.5-73.1); Platelet Count Result 412 k/mm3 (150-375); Red Blood Count 4.76 M/mm3 (4.2-5.4); Red Cell Distribution Width 14.2 % (11.5-14.5); White Blood Count 7.4 K/mm3 (4.5-10.0)
[2023-10-27 19:52] LABS: Alanine Aminotransferase 12 U/L (6-35); Albumin Level 4.2 g/dL (3.5-5.1); Alkaline Phosphatase 62 U/L (38-126); Anion Gap 11 mmol/L (4-12); Aspartate Amino Transferase 27 U/L (14-36); Bilirubin,Total 0.4 mg/dL (0.2-1.3); Blood Urea Nitrogen 25 mg/dL (7-17); Calcium 9.9 mg/dL (8.4-10.2); Carbon Dioxide 28 mmol/L (22-30); Chloride 94 mmol/L (98-107); Estimated CRCL calculation 26 ml/min; Estimated Glomerular Filt Rate 27; Glucose 159 mg/dL (65-110); Potassium 4.4 mmol/L (3.4-5.0); Sodium 133 mmol/L (137-145)
[2023-10-27 19:54] LABS: Lactic Acid Reflex 1.7 mmol/L (0.7-2.0)
[2023-10-27 19:55] LABS: Lipase 163 U/L (23-300); Magnesium 2.4 mg/dL (1.6-2.3); Phosphorus 4.7 mg/dL (2.5-4.5)
[2023-10-27] MEDS: SODIUM CHLORIDE 0.9% IV 2,000 ML 999 ML IV CONT (19:55)
[2023-10-27 20:00] LABS: NT Pro B Type Natriuretic Pept 331 pg/mL (19.9-100)
[2023-10-27 20:00] LABS: Alveolar/Arterial O2 Gradient 33.9 mmHg; Base Excess ABG 1.6 mEq/l (+/-2.0); Fractional Inspired Oxygen 21 %; HCO3 ABG 25.2 mEq/l (22.0-26.0); Oxygen Content ABG 18.9 %vol (16.0-22.0); Oxygen Saturation ABG 95.3 % (95.0-100.0); Oxyhemoglobin 94.4 % THb (90.0-100.0); PCO2 ABG 36.7 mmHg (35.0-45.0); PO2 ABG 71.9 mmHg (80.0-100.0); PO2 FiO2 Ratio Arterial Blood 3.42 %; Total Hemoglobin 14.2 g/dL (12.0-18.0); pH ABG 7.455 (7.350-7.450)
[2023-10-27 20:01] LABS: Device ROOM AIR; Modified Allen's Test Pass; Site Drawn LEFT RADIAL
[2023-10-27 20:07] LABS: Troponin I 0.019 ng/mL (0.000-0.034)
[2023-10-27 20:19] LABS: Prothrombin Time 14.1 Seconds (11.1-14.7)
[2023-10-27 20:20] LABS: Partial Thromboplastin Time 31.1 Seconds (22.3-36.8)
[2023-10-27 20:23] LABS: Influenza A QL RT-PCR Negative (Negative); Influenza B QL RT-PCR Negative (Negative); RSV RNA, RT-PCR Negative (Negative); SARS-CoV-2 RNA PCR Negative (Negative)
[2023-10-27 20:41] LABS: Add Urine Microscopic? YES; Appearance Urine Cloudy (Clear); Bacteria Urine None Seen /hpf; Bilirubin Urine Negative (Negative); Blood Urine Negative (Negative); Color Urine Yellow (Yellow); Glucose Urine UA 3+ mg/dL (Negative); Ketones Urine Negative (Negative); Leukocyte Esterase Ur Negative LEU/UL (Negative); Nitrate Urine Negative (Negative); Protein Urine Negative (Negative); RBC Urine 0-2 /hpf (0-2); Specific Grav Ur 1.015 (1.001-1.035); Squamous Epithelial Cell Urine Moderate /hpf (Few); Urobilinogen Urine 0.2 mg/dL (<2.0); WBC Urine 0-5 /hpf (0-3)
[2023-10-27 20:51] LABS: Amphetamine Screen Urine Negative (Negative); Barbiturate Screen Urine Negative (Negative); Benzodiazepines Screen Urine Negative (Negative); Cannabinoid Screen Urine Negative (Negative); Cocaine Screen Urine Negative (Negative); Methadone Screen Urine Negative (Negative); Opiate Screen Urine Negative (Negative); Phencyclidine Screen Urine Negative (Negative)
[2023-10-27 21:03] VITALS: BP 154/65; PULSE 85; RESP 16; TEMP 36.3; O2SAT 100
[2023-10-27 21:06] LABS: Ethanol < 10 mg/dL (<10)
[2023-10-27 21:20] LABS: Free T4 Free Thyroxine Reflex 1.36 ng/dL (0.78-2.19)
[2023-10-27] MEDS: SODIUM CHLORIDE 0.9% IV 600 ML 999 ML IV CONT (21:21)
[2023-10-27 22:06] LABS: Total Triiodothyronine (T3) 0.97 NG/ML (0.97-1.69)
--- NOTE | 2023-10-27 22:22 | ECG_ITS ---
Test Date: 2023-10-27 23:26:31 Measurements Intervals [place] Rate: 76 P: 16 RI: 162 QRS: -53 QRSD: 118 T: 86 QT: 420 QTc: 472 Interpretive Statements SINUS RHYTHM WITH SINUS ARRHYTHMIA LOW QRS VOLTAGE IN PRECORDIAL LEADS [QRS DEFLECTION < 1.0 mV IN CHEST LEADS] LEFT ANTERIOR FASCICULAR BLOCK [QRS AXIS <= -45, QR IN I, RS IN II] ANTERIOR MYOCARDIAL INFARCTION , PROBABLY OLD [40+ ms Q WAVE AND/OR ST/T ABNORMALITY IN V3/V4] INFERIOR MYOCARDIAL INFARCTION , PROBABLY OLD [40+ ms Q WAVE AND/OR ST/T ABNORMALITY IN II/aVF] Compared to ECG 10/27/2023 19:23:49 NO SIGNIFICANT CHANGES Electronically Signed On 10-28-2023 10:22:33 CDT by Eden Rosenberg M.D.
[2023-10-27 23:56] VITALS: BP 155/77; PULSE 98; RESP 15; O2SAT 97
[2023-10-28] MEDS: LACTATED RINGERS 1,000 ML 100 ML IV CONT (01:08)
[2023-10-28 01:13] VITALS: BMI 36.3
[2023-10-28 06:00] VITALS: BP 134/55; PULSE 87; RESP 20; TEMP 36.4; O2SAT 99
[2023-10-28 07:45] VITALS: O2SAT 97
[2023-10-28 08:18] LABS: Glucose Point of Care 128 mg/dl (65-105)
--- NOTE | 2023-10-28 09:10 | PM.IMHP ---
H&P: HPI History of Present Illness Date/Time: 10/28/23 05:10 Chief Complaint: Altered mental status Narrative: 78-year-old female with past medical history diastolic heart failure, aortic stenosis, peripheral vascular disease, essential hypertension, obstructive sleep apnea on CPAP, morbid obesity, type 2 diabetes mellitus, hypothyroidism and recurrent UTIs who presented to the ER from home in the company of her due to altered mental status. Patient did was evaluated as outpatient and found to have a UTI. She was started on Cipro but when cultures were returned Proteus Mirabilis patient's antibiotics were switched to Augmentin. She was on day 5 of Augmentin on arrival to the ER. Her UA appears significantly improved to prior specimen. Despite improved urine specimen the patient is only oriented to person. She denies any significant complaints. She can only tell me her 1st and last name. When I asked her where we were currently located the patient started talking about where her may be. She is commence that her has left her for another woman. Although her brought the patient to the ER and was attentive to the patient's needs in the ER. According to the ER note the patient is usually alert orient x4. Nursing staff reports the patient acted like this during her last hospital stay due to encephalopathy from infection at that time. Patient is already pulled out her IV multiple times since admission. She is difficult to redirect but is cooperative with examination. She has been afebrile since presentation. White count was normal with patient's creatinine did increase to 1.8 from 1. She did not have significant elevation in her BUN from baseline but her hemoglobin also increased by 3 g. It was presumed that the patient is likely volume depleted. Patient was given approximately 3 L of IV fluids in the ER. She was also given a dose of Rocephin but when her urine came back not significant for new infection. Nursing staff reports that the patient's was unhappy with the patient's medical care here during her last hospitalization and was upset that she was discharged from the hospital went to multiple people to help her into the car. I was unable to confirm this with patient's had left before the patient was transferred up to the medical floor. Review of Systems Review of Systems: ROS unobtainable: Yes unobtainable due to mental status [facility] Past Medical History Medical History (Updated 10/28/23 @ 09:57 by Cecille Elliott DO) Aortic stenosis Benign essential hypertension BMI 38.0-38.9,adult Body mass index (BMI) 45.0-49.9, adult Chronic kidney disease, stage 3 Degenerative joint disease Diastolic congestive heart failure Essential hypertension Hyperlipidemia Hypothyroidism (acquired) Murmur, heart Nausea and vomiting in adult NPH (normal pressure hydrocephalus) PHYLICIA on CPAP Peripheral vascular disease Tachycardia Type 2 diabetes mellitus Vitamin D deficiency Surgical History Surgical History History of bladder repair surgery For bladder prolapse. Family History Family History Mother Hypertension, Onset Age: 70 Cerebrovascular accident Patient's mother is Sibling Carcinoma of colon Other Family history of arthritis Family history of coronary artery disease Social History Social History Social History: Surrogate medical decision maker: Dago North, spouse. Code status: Full code. Smoking status: Former smoker Second hand tobacco smoke exposure: No Alcohol intake: never Substance use: never Substance use type: does not use Do You Feel Safe in your Home?: Yes Lack of Transportation: No Lack of Food: Never True Current Housing: I Have Housing [facility]
[2023-10-28 09:18] VITALS: BMI 36.3
[2023-10-28 12:10] LABS: Glucose Point of Care 158 mg/dl (65-105)
[2023-10-28 12:29] VITALS: PULSE 80
[2023-10-28] MEDS: AMOXICILLIN/CLAVULANATE K 500-125 MG TAB 1 TABLET PO (12:29)
[2023-10-28] MEDS: MAGNESIUM OXIDE 400 MG TABLET PO (12:29)
[2023-10-28] MEDS: CHOLECALCIFEROL 1,000 UNITS TABLET 2000 UNITS PO (12:29)
[2023-10-28] MEDS: METOPROLOL SUCCINATE EXT REL 25 MG TABCR 75 MG PO (12:29)
[2023-10-28] MEDS: OLANZapine 5 MG TABLET PO ×2 (12:29→17:01)
[2023-10-28] MEDS: cilostazoL 100 MG TABLET PO ×2 (12:37→17:01)
--- NOTE | 2023-10-28 13:05 | PC.NURSE ---
Pt only took one bite of her crushed medications. Pt encouraged to finish her meds, but pt is refusing. Call out to inform .
[2023-10-28 14:00] VITALS: BP 148/91; PULSE 94; RESP 16; TEMP 36.6; O2SAT 100
--- NOTE | 2023-10-28 15:54 | PM.IMPN ---
Progress Note: A&P Assessment and Plan (1) Altered mental status: Qualifiers: Altered mental status type: unspecified Qualified Code(s): R41.82 - Altered mental status, unspecified Code(s): R41.82 - Altered mental status, unspecified Status: Acute Assessment and Plan: Patient was presumably AOx4 per ED notes. However, patient was here in June and was noted to oriented to person only. Note states Dementia symptoms seem to be getting worse. possibly related to NPH. Unclear what her baseline mental status is. Patient has pulled out her IV multiple times today. TSH 5.3 but normal FT4. B12, folate and Vit D normal in May. ABG 7.45/37/[address] head showing no acute findings. Discussed with PCP who felt patient has underlying dementia and is also noncompliant. Continue to evaluate for causes of AMS but suspect may be at baseline Neuro consult. Consider MRI brain Continue Zyprexa (2) Acute kidney injury: Code(s): N17.9 - Acute kidney failure, unspecified Status: Resolved Assessment and Plan: Cr elevated to 1.8. Baseline Cr 0.9. BUN elevated to 25. Patient probably dehydrated. She was given approximately 3 L of IV fluids in the ER. IV fluids continued but patieint continues to pull out IVs. Hold IV fluids and check BMP (3) UTI (urinary tract infection): Qualifiers: Hematuria presence: without hematuria Urinary tract infection type: site unspecified Qualified Code(s): N39.0 - Urinary tract infection, site not specified Code(s): N39.0 - Urinary tract infection, site not specified Status: Resolved Assessment and Plan: Patient was evaluated as outpatient and found to have a UTI. She was started on Cipro but when cultures returned Proteus Mirabilis, patient's antibiotics were switched to Augmentin. She was on day 5 of Augmentin on arrival to the ER. UA here mostly clear. Given the patient's recurrent UTIs, plan to discontinue Farxiga altogether. Rocephin given once in ED but now just continued on Augmentin. (4) DM type 2 (diabetes mellitus, type 2): Qualifiers: Diabetes mellitus complication status: without complication Diabetes mellitus adjunct faculty for medical terminology insulin use: unspecified adjunct faculty for medical terminology insulin use status Qualified Code(s): E11.9 - Type 2 diabetes mellitus without complications Code(s): E11.9 - Type 2 diabetes mellitus without complications Status: Chronic Assessment and Plan: A1c 6.4 in Apr. The patient's blood glucose was reviewed on 10/27 Start AccuCheks covering with sliding scale. Hypoglycemia protocol will be available as needed. (5) NPH (normal pressure hydrocephalus): Code(s): G91.2 - (Idiopathic) normal pressure hydrocephalus Status: Acute Assessment and Plan: CT brain showing no acute findings. No hydrocephalus. Defer to neurology (6) PHYLICIA on CPAP: Code(s): G47.33 - Obstructive sleep apnea (adult) (pediatric) Status: Chronic Assessment and Plan: Auto titrating CPAP/BiPAP ordered. Will see if patient will use the device while hospitalized. Plan DVT prophylaxis - Heparin Code status - full Subjective Date/time seen: 10/28/23 15:54 Interval history: 78yo female with hx of diastolic CHF, aortic stenosis, PAD, HTN, PHYLICIA on CPAP, morbid obesity, DM, hypothyroidism and recurrent UTIs who presented to the ER from home in the company of her due to altered mental status. Patient is alert sitting up in the chair but confused and unable to provide hx. Review of Systems Review of Systems: ROS unobtainable: Yes unobtainable due to mental status Exam Narrative: AF 97.9 148/91 94 16 100% ra Gen - NARD sitting up in chair Chest - CTA bilaterally, nml RR CV - RRR S1/S2 with 2/6 systolic murmur USB Abd - Soft, obese, NT Ext - woody pedal edema Neuro - Alert but confused. no focal weakness Psych - pleasant and cooperat
--- NOTE | 2023-10-28 16:37 | PC.NURSE ---
Patient refusing evening medication. Will attempt again in half an hour.
[2023-10-28 17:28] LABS: Glucose Point of Care 144 mg/dl (65-105)
[2023-10-28 20:20] LABS: Anion Gap 11 mmol/L (4-12); Blood Urea Nitrogen 18 mg/dL (7-17); Calcium 9.7 mg/dL (8.4-10.2); Carbon Dioxide 23 mmol/L (22-30); Chloride 100 mmol/L (98-107); Estimated CRCL calculation 30 ml/min; Estimated Glomerular Filt Rate 34; Glucose 187 mg/dL (65-110); Potassium 3.9 mmol/L (3.4-5.0); Sodium 134 mmol/L (137-145)
[2023-10-28] MEDS: HEPARIN SODIUM 5,000 UNITS/ML VIAL 5000 UNITS SUB-Q (20:57)
--- NOTE | 2023-10-28 21:14 | PC.NURSE ---
A family friend was at bedside visiting. Pt was able to hold a conversation w her. When I came back to pass meds pt is not cooperative. I put her pill in janelle pudding per request. She then spit the pudding and medicine out cause she changed her mind and didnt want medicine. She has scooted herself back to the foot of the bed and is trying to climb out of bed.
[2023-10-28 22:07] VITALS: BP 143/68; PULSE 93; RESP 18; TEMP 36.7; O2SAT 96
[2023-10-28] MEDS: cefTRIAXone 1 GM VIAL IM (23:22)
[2023-10-29] VITALS (7 sets, daily range): BP systolic 115–148; BP diastolic 53–76; PULSE 76–99; RESP 18–20; TEMP 36.1–36.7; O2SAT 92–100
[2023-10-29 05:58] LABS: Glucose Point of Care 154 mg/dl (65-105)
[2023-10-29 06:59] LABS: Hematocrit 36.9 % (37.0-47.0); Hemoglobin 11.7 g/dL (12.0-15.0); Mean Corpuscular HGB Conc 31.7 g/dl (32-36); Mean Corpuscular Volume 88.3 fl (80-100); Mean Platelet Volume 10.5 fl (7.4-10.4); Platelet Count Result 365 k/mm3 (150-375); Red Blood Count 4.18 M/mm3 (4.2-5.4); Red Cell Distribution Width 14.1 % (11.5-14.5); White Blood Count 7.7 K/mm3 (4.5-10.0)
[2023-10-29 07:09] LABS: Anion Gap 10 mmol/L (4-12); Blood Urea Nitrogen 15 mg/dL (7-17); Calcium 9.5 mg/dL (8.4-10.2); Carbon Dioxide 23 mmol/L (22-30); Chloride 104 mmol/L (98-107); Estimated CRCL calculation 32 ml/min; Estimated Glomerular Filt Rate 37; Glucose 139 mg/dL (65-110); Potassium 3.9 mmol/L (3.4-5.0); Sodium 137 mmol/L (137-145)
[2023-10-29 07:17] LABS: Hemoglobin A1C 6.9 % (<5.7)
[2023-10-29 07:41] LABS: Glucose Point of Care 128 mg/dl (65-105)
[2023-10-29] MEDS: CHOLECALCIFEROL 1,000 UNITS TABLET 2000 UNITS PO (08:56)
[2023-10-29] MEDS: cilostazoL 100 MG TABLET PO ×2 (08:57→17:26)
[2023-10-29] MEDS: MAGNESIUM OXIDE 400 MG TABLET PO (08:57)
[2023-10-29] MEDS: OLANZapine 5 MG TABLET PO ×2 (08:57→17:26)
[2023-10-29] MEDS: METOPROLOL SUCCINATE EXT REL 25 MG TABCR 75 MG PO (08:58)
[2023-10-29] MEDS: HEPARIN SODIUM 5,000 UNITS/ML VIAL 5000 UNITS SUB-Q ×2 (08:59→21:16)
[2023-10-29 12:26] LABS: Glucose Point of Care 127 mg/dl (65-105)
[2023-10-29 16:55] LABS: Glucose Point of Care 145 mg/dl (65-105)
--- NOTE | 2023-10-29 18:30 | WPDPN ---
Progress Note: A&P Assessment and Plan (1) Altered mental status: Qualifiers: Altered mental status type: unspecified Qualified Code(s): R41.82 - Altered mental status, unspecified Code(s): R41.82 - Altered mental status, unspecified Status: Acute (2) Dehydration: Code(s): E86.0 - Dehydration Status: Acute (3) UTI (urinary tract infection): Qualifiers: Urinary tract infection type: site unspecified Hematuria presence: without hematuria Qualified Code(s): N39.0 - Urinary tract infection, site not specified Code(s): N39.0 - Urinary tract infection, site not specified Status: Resolved (4) DM type 2 (diabetes mellitus, type 2): Qualifiers: Diabetes mellitus halfway insulin use: unspecified halfway insulin use status Diabetes mellitus complication status: without complication Qualified Code(s): E11.9 - Type 2 diabetes mellitus without complications Code(s): E11.9 - Type 2 diabetes mellitus without complications Status: Chronic (5) PHYLICIA on CPAP: Code(s): G47.33 - Obstructive sleep apnea (adult) (pediatric) Status: Chronic (6) NPH (normal pressure hydrocephalus): Code(s): G91.2 - (Idiopathic) normal pressure hydrocephalus Status: Acute Plan Patient has altered mental status. Is not due to infection as her UTI has clearly responded to the antibiotic therapy. The patient does seem to have some hemoconcentration and acute kidney injury. He although her degree of uremia would not make me think this her renal function is causing her degree of confusion. She does have a prior history of NPH listed I do not know if this was ruled out her a continued diagnosis. I did not of the patient ever followed up with cisternogram or Neurosurgery as outpatient. If mentation does not improve with hydration if this workup was not completed and may be beneficial to do so. At this time will hold the patient's diuretic therapy. And provide IV fluid hydration. I do not know if the patient possibly had access to her home medications could be possible that she took extra medications I am uncertain. We may need to hold the patient's home Lantus pain. Given the patient's recurrent urinary tract infections it would be prudent to consider discontinuing Farxiga altogether. The glucose load in the patient's urine may be increasing her frequency of urinary tract infections. Will hold while in the hospital place patient on sliding scale insulin with Accu-Cheks a.c. HS. Patient has been changed to a consistent carbohydrate diet. Will order auto titrating CPAP/BiPAP. Will see if patient will use the device while hospitalized. Will repeat CBC and BMP. patient caregiver who is RN is present in the room state patient has vascular dementia as CT scan of the head showed Moderate atrophy and chronic white matter change. Atherosclerotic intracranial calcification and patient symptoms are worsening. Upon arrival patient BUN and creatinine were elevated resulting in dehydration and possible causing confusion however a serum creatinine and BUN in a trending and patient remained clinically confused. patient is unable take care of the patient. childcare provider is working with the patient caregive and family for the placement. Subjective Date/time seen: 10/29/23 18:30 Interval history: 78yo female with hx of diastolic CHF, aortic stenosis, PAD, HTN, PHYLICIA on CPAP, morbid obesity, DM, hypothyroidism and recurrent UTIs who presented to the ER from home in the company of her due to altered mental status. Patient is alert sitting up in the chair but confused and unable to provide hx. patient caregiver who is RN is present in the room state patient has vascular dementia as CT scan of the head showed Moderate atrophy and chronic white matter change. Atherosclerotic intracranial calcification and patient symptoms are worsening. Upon arrival patient
[2023-10-29 20:53] LABS: Glucose Point of Care 138 mg/dl (65-105)
[2023-10-29] MEDS: cefTRIAXone 1 GM VIAL IM (21:16)
[2023-10-30 05:53] LABS: Hematocrit 34.6 % (37.0-47.0); Hemoglobin 10.9 g/dL (12.0-15.0); Mean Corpuscular HGB Conc 31.5 g/dl (32-36); Mean Corpuscular Hemoglobin 27.6 pg (26-34); Mean Corpuscular Volume 87.6 fl (80-100); Mean Platelet Volume 10.4 fl (7.4-10.4); Platelet Count Result 347 k/mm3 (150-375); Red Blood Count 3.95 M/mm3 (4.2-5.4); Red Cell Distribution Width 14.2 % (11.5-14.5); White Blood Count 7.9 K/mm3 (4.5-10.0)
[2023-10-30 06:00] VITALS: BP 114/45; PULSE 83; RESP 16; TEMP 36.6; O2SAT 94
[2023-10-30 06:21] LABS: Anion Gap 7 mmol/L (4-12); Blood Urea Nitrogen 15 mg/dL (7-17); Calcium 9.3 mg/dL (8.4-10.2); Carbon Dioxide 25 mmol/L (22-30); Chloride 104 mmol/L (98-107); Estimated CRCL calculation 30 ml/min; Estimated Glomerular Filt Rate 34; Glucose 105 mg/dL (65-110); Magnesium 2.1 mg/dL (1.6-2.3); Sodium 136 mmol/L (137-145)
[2023-10-30] MEDS: LEVOTHYROXINE SODIUM 125 MCG TABLET PO (06:23)
[2023-10-30 08:31] LABS: Glucose Point of Care 100 mg/dl (65-105)
[2023-10-30 09:46] VITALS: PULSE 97
[2023-10-30] MEDS: METOPROLOL SUCCINATE EXT REL 25 MG TABCR 75 MG PO (09:46)
[2023-10-30] MEDS: OLANZapine 5 MG TABLET PO ×2 (09:46→16:55)
[2023-10-30] MEDS: CHOLECALCIFEROL 1,000 UNITS TABLET 2000 UNITS PO (09:46)
[2023-10-30] MEDS: cilostazoL 100 MG TABLET PO ×2 (09:47→16:55)
[2023-10-30] MEDS: MAGNESIUM OXIDE 400 MG TABLET PO (09:47)
[2023-10-30] MEDS: HEPARIN SODIUM 5,000 UNITS/ML VIAL 5000 UNITS SUB-Q ×2 (10:36→21:48)
[2023-10-30 11:05] VITALS: TEMP 36.8
--- NOTE | 2023-10-30 11:23 | WPDNEURCNPN ---
Assessment and Plan Assessment and plan (1) Dementia: Code(s): F03.90 - Unspecified dementia, unspecified severity, without behavioral disturbance, psychotic disturbance, mood disturbance, and anxiety Status: Acute (2) NPH (normal pressure hydrocephalus): Code(s): G91.2 - (Idiopathic) normal pressure hydrocephalus Status: Acute (3) DM type 2 (diabetes mellitus, type 2): Qualifiers: Diabetes mellitus hearse driver insulin use: unspecified hearse driver insulin use status Diabetes mellitus complication status: without complication Qualified Code(s): E11.9 - Type 2 diabetes mellitus without complications Code(s): E11.9 - Type 2 diabetes mellitus without complications Status: Chronic (4) PHYLICIA on CPAP: Code(s): G47.33 - Obstructive sleep apnea (adult) (pediatric) Status: Chronic Plan The CT scan of brain does show prominent ventricles and some hypodensity around the ventricles suggestive of possible sub ependymal effusion. There is a significant atrophy. Marked atrophy was noted around the sylvian fissure on the left side. The differential diagnosis of this picture would be with the hydrocephalus ex vacuo versus normal pressure hydrocephalus and probably large volume spinal tap can be a consideration. If the family wishes to pursue this further I would suggest a neurosurgical evaluation. In the meanwhile I will check her B12 folic acid level and thyroid function test and a lipid profile and methylmalonic acid level and vitamin-D level. Also suggest to start her on Aricept 5 mg a day and Namenda 5 mg a day. The dose of both these need to be gradually increased were Aricept should be 10 mg a day and Namenda should be 10 mg twice a day over the course of next month. The side effects need to be monitored which may include bradycardia nightmares and a diarrhea. We can also add Lexapro 10 mg a day. If the side of her become a problem we may have to start 1 medication at a time. Consult date: 10/30/23 HPI: Racheal North is a 78 year old female with history of dementia and normal pressure hydrocephalus, diabetes mellitus, chronic kidney disease, obstructive sleep apnea syndrome and recurrent urinary tract infection. She is a admitted I believe [facility] [place] [facility] to the hospital on account of change in mental status. Patient unable to offer much in the way of the history. No family member available at the time of this evaluation however I believe that she has a who does visit her frequently. I do not find any previous neurologic evaluation and she is not on any medications for memory. I also did not see any neuro surgical evaluation on the record with regard to normal pressure hydrocephalus. The nursing staff have not noticed any passing-out spells or sudden change in mental status. Review of Systems Review of Systems: ROS unobtainable: Yes unobtainable due to medical condition [facility] Past Medical History Medical History (Updated 10/30/23 @ 11:28 by Kiko Cade MD) Aortic stenosis Benign essential hypertension BMI 38.0-38.9,adult Body mass index (BMI) 45.0-49.9, adult Chronic kidney disease, stage 3 Degenerative joint disease Dementia Diastolic congestive heart failure Essential hypertension Hyperlipidemia Hypothyroidism (acquired) Murmur, heart Nausea and vomiting in adult NPH (normal pressure hydrocephalus) PHYLICIA on CPAP Peripheral vascular disease Tachycardia Type 2 diabetes mellitus Vitamin D deficiency Surgical History Surgical History History of bladder repair surgery For bladder prolapse. Family History Family History Mother Hypertension, Onset Age: 70 Cerebrovascular accident Patient's mother is Sibling Carcinoma of colon Other Family history of arthritis Family history of coronary artery disease Social Hi
[2023-10-30 12:12] LABS: Cholesterol 180 mg/dL (0-200); HDL Direct 30 mg/dL; Triglycerides 161 mg/dL (<150)
[2023-10-30 12:23] LABS: LDL Cholesterol Direct 115 mg/dL; Vitamin D 25 Hydroxy 28.3 ng/mL
[2023-10-30 12:28] LABS: Glucose Point of Care 132 mg/dl (65-105)
[2023-10-30 13:40] LABS: Folic Acid 4.3 ng/mL (2.76->20)
[2023-10-30 15:26] VITALS: BP 158/94; PULSE 95; RESP 16; TEMP 36.8; O2SAT 100
--- NOTE | 2023-10-30 17:17 | WPDPN ---
Progress Note: A&P Assessment and Plan (1) Altered mental status: Qualifiers: Altered mental status type: unspecified Qualified Code(s): R41.82 - Altered mental status, unspecified Code(s): R41.82 - Altered mental status, unspecified Status: Acute (2) Dehydration: Code(s): E86.0 - Dehydration Status: Acute (3) UTI (urinary tract infection): Qualifiers: Urinary tract infection type: site unspecified Hematuria presence: without hematuria Qualified Code(s): N39.0 - Urinary tract infection, site not specified Code(s): N39.0 - Urinary tract infection, site not specified Status: Resolved (4) DM type 2 (diabetes mellitus, type 2): Qualifiers: Diabetes mellitus shelter insulin use: unspecified shelter insulin use status Diabetes mellitus complication status: without complication Qualified Code(s): E11.9 - Type 2 diabetes mellitus without complications Code(s): E11.9 - Type 2 diabetes mellitus without complications Status: Chronic (5) PHYLICIA on CPAP: Code(s): G47.33 - Obstructive sleep apnea (adult) (pediatric) Status: Chronic (6) NPH (normal pressure hydrocephalus): Code(s): G91.2 - (Idiopathic) normal pressure hydrocephalus Status: Acute Plan Patient has altered mental status. Is not due to infection as her UTI has clearly responded to the antibiotic therapy. The patient does seem to have some hemoconcentration and acute kidney injury. He although her degree of uremia would not make me think this her renal function is causing her degree of confusion. She does have a prior history of NPH listed I do not know if this was ruled out her a continued diagnosis. I did not of the patient ever followed up with cisternogram or Neurosurgery as outpatient. If mentation does not improve with hydration if this workup was not completed and may be beneficial to do so. At this time will hold the patient's diuretic therapy. And provide IV fluid hydration. I do not know if the patient possibly had access to her home medications could be possible that she took extra medications I am uncertain. We may need to hold the patient's home Lantus pain. Given the patient's recurrent urinary tract infections it would be prudent to consider discontinuing Farxiga altogether. The glucose load in the patient's urine may be increasing her frequency of urinary tract infections. Will hold while in the hospital place patient on sliding scale insulin with Accu-Cheks a.c. HS. Patient has been changed to a consistent carbohydrate diet. Will order auto titrating CPAP/BiPAP. Will see if patient will use the device while hospitalized. Will repeat CBC and BMP. on 10/28 patient caregiver who is RN was present in the room state patient has vascular dementia as CT scan of the head showed Moderate atrophy and chronic white matter change. Atherosclerotic intracranial calcification and patient symptoms are worsening. Upon arrival patient BUN and creatinine were elevated resulting in dehydration and possible causing confusion however a serum creatinine and BUN in a trending and patient remained clinically confused. today patient's is present in the room, patient is unable take care of the patient. career development coordinator/teacher is working with the patient caregive and family for the placement. Subjective Date/time seen: 10/30/23 17:17 Interval history: 78yo female with hx of diastolic CHF, aortic stenosis, PAD, HTN, PHYLICIA on CPAP, morbid obesity, DM, hypothyroidism and recurrent UTIs who presented to the ER from home in the company of her due to altered mental status. Patient is alert sitting up in the chair but confused and unable to provide hx. on 10/28 patient caregiver who is RN was present in the room state patient has vascular dementia as CT scan of the head showed Moderate atrophy and chronic white matter change. Atherosclerotic intracranial calcificat
[2023-10-30 17:25] LABS: Glucose Point of Care 124 mg/dl (65-105)
[2023-10-30 20:29] LABS: Glucose Point of Care 170 mg/dl (65-105)
[2023-10-30] MEDS: cefTRIAXone 1 GM VIAL IM (21:47)
[2023-10-30] MEDS: DONEPEZIL HCL 5 MG TABLET PO (21:47)
[2023-10-30 21:53] VITALS: BP 148/66; PULSE 93; RESP 16; TEMP 36.1; O2SAT 98
[2023-10-31] MEDS: LEVOTHYROXINE SODIUM 125 MCG TABLET PO (05:24)
[2023-10-31 06:00] VITALS: BP 142/53; PULSE 89; RESP 16; TEMP 36.6; O2SAT 93
[2023-10-31 06:19] LABS: Mean Corpuscular HGB Conc 31.4 g/dl (32-36); Mean Corpuscular Hemoglobin 27.6 pg (26-34); Mean Corpuscular Volume 87.9 fl (80-100); Mean Platelet Volume 10.6 fl (7.4-10.4); Platelet Count Result 353 k/mm3 (150-375); Red Blood Count 3.98 M/mm3 (4.2-5.4); Red Cell Distribution Width 14.3 % (11.5-14.5); White Blood Count 9.7 K/mm3 (4.5-10.0)
[2023-10-31 06:40] LABS: Anion Gap 8 mmol/L (4-12); Blood Urea Nitrogen 17 mg/dL (7-17); Calcium 9.2 mg/dL (8.4-10.2); Carbon Dioxide 24 mmol/L (22-30); Chloride 103 mmol/L (98-107); Estimated CRCL calculation 32 ml/min; Estimated Glomerular Filt Rate 37; Glucose 114 mg/dL (65-110); Magnesium 2.1 mg/dL (1.6-2.3); Sodium 135 mmol/L (137-145)
[2023-10-31 08:29] VITALS: PULSE 90
[2023-10-31] MEDS: MAGNESIUM OXIDE 400 MG TABLET PO (08:29)
[2023-10-31] MEDS: METOPROLOL SUCCINATE EXT REL 25 MG TABCR 75 MG PO (08:29)
[2023-10-31] MEDS: OLANZapine 5 MG TABLET PO ×2 (08:29→16:29)
[2023-10-31] MEDS: CHOLECALCIFEROL 1,000 UNITS TABLET 2000 UNITS PO (08:29)
[2023-10-31] MEDS: HEPARIN SODIUM 5,000 UNITS/ML VIAL 5000 UNITS SUB-Q ×2 (08:29→22:18)
[2023-10-31] MEDS: MEMANTINE 5 MG TABLET PO (08:29)
[2023-10-31] MEDS: cilostazoL 100 MG TABLET PO ×2 (08:30→16:30)
[2023-10-31 08:45] LABS: Glucose Point of Care 117 mg/dl (65-105)
[2023-10-31 08:47] VITALS: O2SAT 93
--- NOTE | 2023-10-31 10:55 | PCOTNOTE ---
Patient refused to participate at all with activities. Patient is very paranoid at this time. States she has been kidnapped and all the men . Will attempted again this afternoon.
[2023-10-31 12:20] LABS: Glucose Point of Care 134 mg/dl (65-105)
[2023-10-31 14:00] VITALS: BP 143/67; PULSE 71; RESP 16; TEMP 36.8; O2SAT 100
[2023-10-31] MEDS: ONDANSETRON HCL ODT 4 MG TABLET PO (14:56)
--- NOTE | 2023-10-31 16:36 | WPDPN ---
Progress Note: A&P Assessment and Plan (1) Altered mental status: Qualifiers: Altered mental status type: unspecified Qualified Code(s): R41.82 - Altered mental status, unspecified Code(s): R41.82 - Altered mental status, unspecified Status: Acute (2) Dehydration: Code(s): E86.0 - Dehydration Status: Acute (3) UTI (urinary tract infection): Qualifiers: Urinary tract infection type: site unspecified Hematuria presence: without hematuria Qualified Code(s): N39.0 - Urinary tract infection, site not specified Code(s): N39.0 - Urinary tract infection, site not specified Status: Resolved (4) DM type 2 (diabetes mellitus, type 2): Qualifiers: Diabetes mellitus snf insulin use: unspecified snf insulin use status Diabetes mellitus complication status: without complication Qualified Code(s): E11.9 - Type 2 diabetes mellitus without complications Code(s): E11.9 - Type 2 diabetes mellitus without complications Status: Chronic (5) PHYLICIA on CPAP: Code(s): G47.33 - Obstructive sleep apnea (adult) (pediatric) Status: Chronic (6) NPH (normal pressure hydrocephalus): Code(s): G91.2 - (Idiopathic) normal pressure hydrocephalus Status: Acute Plan Patient has altered mental status. Is not due to infection as her UTI has clearly responded to the antibiotic therapy. The patient does seem to have some hemoconcentration and acute kidney injury. He although her degree of uremia would not make me think this her renal function is causing her degree of confusion. She does have a prior history of NPH listed I do not know if this was ruled out her a continued diagnosis. I did not of the patient ever followed up with cisternogram or Neurosurgery as outpatient. If mentation does not improve with hydration if this workup was not completed and may be beneficial to do so. At this time will hold the patient's diuretic therapy. And provide IV fluid hydration. I do not know if the patient possibly had access to her home medications could be possible that she took extra medications I am uncertain. We may need to hold the patient's home Lantus pain. Given the patient's recurrent urinary tract infections it would be prudent to consider discontinuing Farxiga altogether. The glucose load in the patient's urine may be increasing her frequency of urinary tract infections. Will hold while in the hospital place patient on sliding scale insulin with Accu-Cheks a.c. HS. Patient has been changed to a consistent carbohydrate diet. Will order auto titrating CPAP/BiPAP. Will see if patient will use the device while hospitalized. Will repeat CBC and BMP. on 10/28 patient caregiver who is RN was present in the room state patient has vascular dementia as CT scan of the head showed Moderate atrophy and chronic white matter change. Atherosclerotic intracranial calcification and patient symptoms are worsening. Upon arrival patient BUN and creatinine were elevated resulting in dehydration and possible causing confusion however a serum creatinine and BUN in a trending down and patient remained clinically confused. on 10/29 patient's was present in the room, patient is unable take care of the patient. caregiver services home is working with the patient caregiver and family for the placement. today no family member or career counselor is present, patient is unable to provide any ROS, patient had an episode of vomiting, KUB did not show any obstruction, will continue to monitor, Subjective Date/time seen: 10/31/23 16:36 Interval history: 78yo female with hx of diastolic CHF, aortic stenosis, PAD, HTN, PHYLICIA on CPAP, morbid obesity, DM, hypothyroidism and recurrent UTIs who presented to the ER from home in the company of her due to altered mental status. Patient is alert sitting up in the chair but confused and unable to provide hx. on 10/28 patient care
[2023-10-31 17:10] LABS: Glucose Point of Care 139 mg/dl (65-105)
[2023-10-31 22:00] VITALS: BP 146/68; PULSE 93; RESP 16; TEMP 36.3; O2SAT 95
[2023-10-31] MEDS: DONEPEZIL HCL 5 MG TABLET PO (22:18)
[2023-10-31] MEDS: cefTRIAXone 1 GM VIAL IM (22:18)
[2023-11-01 04:23] LABS: Glucose Point of Care 147 mg/dl (65-105)
--- NOTE | 2023-11-01 05:17 | PC.NURSE ---
ELECTRO MECHANICAL TECHNICIAN notified this nurse that patient has remained dry throughout the night, as this is not typical for patient. Patient was bladder scanned with two consecutive readings, 170 and 175cc content. Patient had no signs of bladder distention, nor did patient display discomfort when area palpated. Will encourage fluid intake. MD made aware.
[2023-11-01] MEDS: LEVOTHYROXINE SODIUM 125 MCG TABLET PO (05:36)
[2023-11-01 06:00] VITALS: BP 143/79; PULSE 95; RESP 18; TEMP 36.6; O2SAT 96
[2023-11-01 06:04] LABS: Hematocrit 32.6 % (37.0-47.0); Hemoglobin 10.3 g/dL (12.0-15.0); Mean Corpuscular HGB Conc 31.6 g/dl (32-36); Mean Corpuscular Hemoglobin 27.8 pg (26-34); Mean Corpuscular Volume 87.9 fl (80-100); Mean Platelet Volume 10.7 fl (7.4-10.4); Platelet Count Result 341 k/mm3 (150-375); Red Blood Count 3.71 M/mm3 (4.2-5.4); Red Cell Distribution Width 14.2 % (11.5-14.5); White Blood Count 9.1 K/mm3 (4.5-10.0)
[2023-11-01 06:15] LABS: Anion Gap 9 mmol/L (4-12); Blood Urea Nitrogen 17 mg/dL (7-17); Calcium 8.9 mg/dL (8.4-10.2); Carbon Dioxide 23 mmol/L (22-30); Chloride 103 mmol/L (98-107); Estimated CRCL calculation 34 ml/min; Estimated Glomerular Filt Rate 40; Glucose 101 mg/dL (65-110); Magnesium 2.1 mg/dL (1.6-2.3); Potassium 3.7 mmol/L (3.4-5.0); Sodium 135 mmol/L (137-145)
[2023-11-01 08:26] VITALS: PULSE 100
[2023-11-01] MEDS: cilostazoL 100 MG TABLET PO ×2 (08:26→16:01)
[2023-11-01] MEDS: OLANZapine 5 MG TABLET PO ×2 (08:26→16:01)
[2023-11-01] MEDS: METOPROLOL SUCCINATE EXT REL 25 MG TABCR 75 MG PO (08:26)
[2023-11-01] MEDS: MAGNESIUM OXIDE 400 MG TABLET PO (08:26)
[2023-11-01] MEDS: CHOLECALCIFEROL 1,000 UNITS TABLET 2000 UNITS PO (08:26)
[2023-11-01] MEDS: HEPARIN SODIUM 5,000 UNITS/ML VIAL 5000 UNITS SUB-Q ×2 (08:27→21:10)
[2023-11-01] MEDS: MEMANTINE 5 MG TABLET PO (08:27)
[2023-11-01 08:49] LABS: Glucose Point of Care 109 mg/dl (65-105)
[2023-11-01 12:27] LABS: Glucose Point of Care 152 mg/dl (65-105)
[2023-11-01 14:53] VITALS: BP 130/58; PULSE 88; RESP 16; TEMP 36.4; O2SAT 98
--- NOTE | 2023-11-01 16:32 | WPDPN ---
Progress Note: A&P Assessment and Plan (1) Altered mental status: Qualifiers: Altered mental status type: unspecified Qualified Code(s): R41.82 - Altered mental status, unspecified Code(s): R41.82 - Altered mental status, unspecified Status: Acute (2) Dehydration: Code(s): E86.0 - Dehydration Status: Acute (3) UTI (urinary tract infection): Qualifiers: Urinary tract infection type: site unspecified Hematuria presence: without hematuria Qualified Code(s): N39.0 - Urinary tract infection, site not specified Code(s): N39.0 - Urinary tract infection, site not specified Status: Resolved (4) DM type 2 (diabetes mellitus, type 2): Qualifiers: Diabetes mellitus jail insulin use: unspecified jail insulin use status Diabetes mellitus complication status: without complication Qualified Code(s): E11.9 - Type 2 diabetes mellitus without complications Code(s): E11.9 - Type 2 diabetes mellitus without complications Status: Chronic (5) PHYLICIA on CPAP: Code(s): G47.33 - Obstructive sleep apnea (adult) (pediatric) Status: Chronic (6) NPH (normal pressure hydrocephalus): Code(s): G91.2 - (Idiopathic) normal pressure hydrocephalus Status: Acute Plan Patient has altered mental status. Is not due to infection as her UTI has clearly responded to the antibiotic therapy. The patient does seem to have some hemoconcentration and acute kidney injury. He although her degree of uremia would not make me think this her renal function is causing her degree of confusion. She does have a prior history of NPH listed I do not know if this was ruled out her a continued diagnosis. I did not of the patient ever followed up with cisternogram or Neurosurgery as outpatient. If mentation does not improve with hydration if this workup was not completed and may be beneficial to do so. At this time will hold the patient's diuretic therapy. And provide IV fluid hydration. I do not know if the patient possibly had access to her home medications could be possible that she took extra medications I am uncertain. We may need to hold the patient's home Lantus pain. Given the patient's recurrent urinary tract infections it would be prudent to consider discontinuing Farxiga altogether. The glucose load in the patient's urine may be increasing her frequency of urinary tract infections. Will hold while in the hospital place patient on sliding scale insulin with Accu-Cheks a.c. HS. Patient has been changed to a consistent carbohydrate diet. Will order auto titrating CPAP/BiPAP. Will see if patient will use the device while hospitalized. Will repeat CBC and BMP. on 10/28 patient caregiver who is RN was present in the room state patient has vascular dementia as CT scan of the head showed Moderate atrophy and chronic white matter change. Atherosclerotic intracranial calcification and patient symptoms are worsening. Upon arrival patient BUN and creatinine were elevated resulting in dehydration and possible causing confusion however a serum creatinine and BUN in a trending down and patient remained clinically confused. on 10/29 patient's was present in the room, patient is unable take care of the patient. patient care secretary is working with the patient caregiver and family for the placement. on 10/30 no family member or child care centre manager was present, patient is unable to provide any ROS, patient had an episode of vomiting, KUB did not show any obstruction, today patient caregiver is present, patient is confused, family is trying to find a place for the patient, will continue to monitor, Subjective Date/time seen: 11/01/23 16:32 Interval history: 78yo female with hx of diastolic CHF, aortic stenosis, PAD, HTN, PHYLICIA on CPAP, morbid obesity, DM, hypothyroidism and recurrent UTIs who presented to the ER from home in the company of her due to altered mental stat
[2023-11-01 17:18] LABS: Glucose Point of Care 110 mg/dl (65-105)
[2023-11-01 21:07] LABS: Glucose Point of Care 144 mg/dl (65-105)
[2023-11-01] MEDS: DONEPEZIL HCL 5 MG TABLET PO (21:10)
[2023-11-01 21:34] VITALS: BP 143/57; PULSE 86; RESP 22; TEMP 36.7; O2SAT 96
[2023-11-01] MEDS: cefTRIAXone 1 GM VIAL IM (22:23)
[2023-11-02 05:57] LABS: Hematocrit 33.1 % (37.0-47.0); Hemoglobin 10.6 g/dL (12.0-15.0); Mean Corpuscular Hemoglobin 28.2 pg (26-34); Mean Platelet Volume 10.7 fl (7.4-10.4); Platelet Count Result 358 k/mm3 (150-375); Red Blood Count 3.76 M/mm3 (4.2-5.4); Red Cell Distribution Width 14.5 % (11.5-14.5); White Blood Count 7.3 K/mm3 (4.5-10.0)
[2023-11-02] MEDS: LEVOTHYROXINE SODIUM 125 MCG TABLET PO (05:59)
[2023-11-02 06:19] LABS: Anion Gap 7 mmol/L (4-12); Blood Urea Nitrogen 14 mg/dL (7-17); Calcium 8.8 mg/dL (8.4-10.2); Carbon Dioxide 25 mmol/L (22-30); Chloride 104 mmol/L (98-107); Estimated CRCL calculation 34 ml/min; Estimated Glomerular Filt Rate 40; Glucose 97 mg/dL (65-110); Magnesium 2.1 mg/dL (1.6-2.3); Potassium 3.8 mmol/L (3.4-5.0); Sodium 136 mmol/L (137-145)
[2023-11-02] MEDS: MEMANTINE 5 MG TABLET PO (09:24)
[2023-11-02] MEDS: cilostazoL 100 MG TABLET PO ×2 (09:24→17:20)
[2023-11-02] MEDS: OLANZapine 5 MG TABLET PO ×2 (09:24→17:20)
[2023-11-02] MEDS: MAGNESIUM OXIDE 400 MG TABLET PO (09:24)
[2023-11-02] MEDS: CHOLECALCIFEROL 1,000 UNITS TABLET 2000 UNITS PO (09:24)
[2023-11-02] MEDS: HEPARIN SODIUM 5,000 UNITS/ML VIAL 5000 UNITS SUB-Q ×2 (09:24→20:13)
[2023-11-02 09:25] VITALS: PULSE 97
[2023-11-02 09:25] LABS: Glucose Point of Care 121 mg/dl (65-105)
[2023-11-02] MEDS: METOPROLOL SUCCINATE EXT REL 25 MG TABCR 75 MG PO (09:25)
[2023-11-02 12:48] LABS: Glucose Point of Care 154 mg/dl (65-105)
[2023-11-02 14:00] VITALS: BP 146/63; PULSE 93; RESP 16; TEMP 37; O2SAT 92
--- NOTE | 2023-11-02 15:10 | WPDPN ---
Progress Note: A&P Assessment and Plan (1) Altered mental status: Qualifiers: Altered mental status type: unspecified Qualified Code(s): R41.82 - Altered mental status, unspecified Code(s): R41.82 - Altered mental status, unspecified Status: Acute (2) Dehydration: Code(s): E86.0 - Dehydration Status: Acute (3) UTI (urinary tract infection): Qualifiers: Urinary tract infection type: site unspecified Hematuria presence: without hematuria Qualified Code(s): N39.0 - Urinary tract infection, site not specified Code(s): N39.0 - Urinary tract infection, site not specified Status: Resolved (4) DM type 2 (diabetes mellitus, type 2): Qualifiers: Diabetes mellitus retirement insulin use: unspecified retirement insulin use status Diabetes mellitus complication status: without complication Qualified Code(s): E11.9 - Type 2 diabetes mellitus without complications Code(s): E11.9 - Type 2 diabetes mellitus without complications Status: Chronic (5) PHYLICIA on CPAP: Code(s): G47.33 - Obstructive sleep apnea (adult) (pediatric) Status: Chronic (6) NPH (normal pressure hydrocephalus): Code(s): G91.2 - (Idiopathic) normal pressure hydrocephalus Status: Acute Plan Patient has altered mental status. Is not due to infection as her UTI has clearly responded to the antibiotic therapy. The patient does seem to have some hemoconcentration and acute kidney injury. He although her degree of uremia would not make me think this her renal function is causing her degree of confusion. She does have a prior history of NPH listed I do not know if this was ruled out her a continued diagnosis. I did not of the patient ever followed up with cisternogram or Neurosurgery as outpatient. If mentation does not improve with hydration if this workup was not completed and may be beneficial to do so. At this time will hold the patient's diuretic therapy. And provide IV fluid hydration. I do not know if the patient possibly had access to her home medications could be possible that she took extra medications I am uncertain. We may need to hold the patient's home Lantus pain. Given the patient's recurrent urinary tract infections it would be prudent to consider discontinuing Farxiga altogether. The glucose load in the patient's urine may be increasing her frequency of urinary tract infections. Will hold while in the hospital place patient on sliding scale insulin with Accu-Cheks a.c. HS. Patient has been changed to a consistent carbohydrate diet. Will order auto titrating CPAP/BiPAP. Will see if patient will use the device while hospitalized. Will repeat CBC and BMP. on 10/28 patient caregiver who is RN was present in the room state patient has vascular dementia as CT scan of the head showed Moderate atrophy and chronic white matter change. Atherosclerotic intracranial calcification and patient symptoms are worsening. Upon arrival patient BUN and creatinine were elevated resulting in dehydration and possible causing confusion however a serum creatinine and BUN in a trending down and patient remained clinically confused. on 10/29 patient's was present in the room, patient is unable take care of the patient. transitions rn care coordinator is working with the patient caregiver and family for the placement. on 10/30 no family member or skin care therapist was present, patient is unable to provide any ROS, patient had an episode of vomiting, KUB did not show any obstruction, on 10/31 patient caregiver was present, patient is confused, family is trying to find a place for the patient, earlier when I saw the patient today no family was present, later in the afternoon family arrived, they have filled applications on couple of assisted living places, will continue to monitor, Subjective Date/time seen: 11/02/23 15:10 Interval history: 78yo female with hx of diastolic CHF, aortic sten
[2023-11-02 16:50] LABS: Glucose Point of Care 137 mg/dl (65-105)
[2023-11-02] MEDS: DONEPEZIL HCL 5 MG TABLET PO (20:13)
[2023-11-02 20:28] VITALS: BP 147/55; PULSE 90; RESP 18; TEMP 36.7; O2SAT 97
[2023-11-02] MEDS: cefTRIAXone 1 GM VIAL IM (21:07)
[2023-11-02 22:55] LABS: Glucose Point of Care 166 mg/dl (65-105)
[2023-11-03] MEDS: LEVOTHYROXINE SODIUM 125 MCG TABLET PO (05:30)
[2023-11-03 05:47] VITALS: BP 138/50; PULSE 87; RESP 16; TEMP 36.4; O2SAT 94
[2023-11-03 07:01] LABS: Hematocrit 34.1 % (37.0-47.0); Hemoglobin 10.9 g/dL (12.0-15.0); Mean Corpuscular Hemoglobin 28.1 pg (26-34); Mean Corpuscular Volume 87.9 fl (80-100); Mean Platelet Volume 10.6 fl (7.4-10.4); Platelet Count Result 381 k/mm3 (150-375); Red Blood Count 3.88 M/mm3 (4.2-5.4); Red Cell Distribution Width 14.4 % (11.5-14.5); White Blood Count 7.2 K/mm3 (4.5-10.0)
[2023-11-03 07:32] LABS: Anion Gap 8 mmol/L (4-12); Blood Urea Nitrogen 12 mg/dL (7-17); Calcium 8.9 mg/dL (8.4-10.2); Carbon Dioxide 24 mmol/L (22-30); Chloride 104 mmol/L (98-107); Estimated CRCL calculation 34 ml/min; Estimated Glomerular Filt Rate 40; Glucose 120 mg/dL (65-110); Magnesium 2.1 mg/dL (1.6-2.3); Potassium 3.8 mmol/L (3.4-5.0); Sodium 136 mmol/L (137-145)
[2023-11-03 08:18] LABS: Glucose Point of Care 121 mg/dl (65-105)
[2023-11-03] MEDS: CHOLECALCIFEROL 1,000 UNITS TABLET 2000 UNITS PO (08:43)
[2023-11-03] MEDS: HEPARIN SODIUM 5,000 UNITS/ML VIAL 5000 UNITS SUB-Q ×2 (08:43→20:08)
[2023-11-03] MEDS: MEMANTINE 5 MG TABLET PO (08:43)
[2023-11-03] MEDS: cilostazoL 100 MG TABLET PO ×2 (08:43→17:40)
[2023-11-03 08:44] VITALS: PULSE 70
[2023-11-03] MEDS: METOPROLOL SUCCINATE EXT REL 25 MG TABCR 75 MG PO (08:44)
[2023-11-03 08:45] VITALS: O2SAT 94
[2023-11-03] MEDS: MAGNESIUM OXIDE 400 MG TABLET PO (08:46)
[2023-11-03] MEDS: OLANZapine 5 MG TABLET PO ×2 (08:46→17:40)
--- NOTE | 2023-11-03 10:23 | PCNFU ---
Nutrition Follow-Up Complete: Suboptimal po intake related to appetite as evidenced by Pt report and noted weight loss over the last 6 months in EMR goal: PO intake greater than 50% of meals and supplements Patient is progressing towards goal. We will continue current goal. Pt current nutrition is DBCC/Heart Healthy with Glucerna BID. Last recorded weight is 90.1 kg, no new weight to report. Bowel Motility: +BM reported 11/01 Labs Reviewed:Glu 120, GFR 40, Na 136, Hct 34.1,Hgb 10.9 Meds Noted: Vit D, Mag ox, Synthroid. Skin: WNL Additional Notes: Patient remains on a DBCC/Heart Healthy diet with Glucerna shakes BID. Oral Intake has been improving about 50% intake reported 11/01. Patient is drinking diet supplements, providing an additional 220 kcals and 10 gm protein. Agree with diet orders. Monitor intake, wt, labs. Follow up in 5 days.
[2023-11-03 12:18] LABS: Glucose Point of Care 148 mg/dl (65-105)
[2023-11-03 14:00] VITALS: BP 129/71; PULSE 86; RESP 18; TEMP 36.6; O2SAT 97
--- NOTE | 2023-11-03 17:26 | WPDPN ---
Progress Note: A&P Assessment and Plan (1) Altered mental status: Qualifiers: Altered mental status type: unspecified Qualified Code(s): R41.82 - Altered mental status, unspecified Code(s): R41.82 - Altered mental status, unspecified Status: Acute (2) Dehydration: Code(s): E86.0 - Dehydration Status: Acute (3) UTI (urinary tract infection): Qualifiers: Hematuria presence: without hematuria Urinary tract infection type: site unspecified Qualified Code(s): N39.0 - Urinary tract infection, site not specified Code(s): N39.0 - Urinary tract infection, site not specified Status: Resolved (4) DM type 2 (diabetes mellitus, type 2): Qualifiers: Diabetes mellitus complication status: without complication Diabetes mellitus terminologist insulin use: unspecified penitentiary insulin use status Qualified Code(s): E11.9 - Type 2 diabetes mellitus without complications Code(s): E11.9 - Type 2 diabetes mellitus without complications Status: Chronic (5) PHYLICIA on CPAP: Code(s): G47.33 - Obstructive sleep apnea (adult) (pediatric) Status: Chronic (6) NPH (normal pressure hydrocephalus): Code(s): G91.2 - (Idiopathic) normal pressure hydrocephalus Status: Acute Plan Patient has altered mental status. Is not due to infection as her UTI has clearly responded to the antibiotic therapy. The patient does seem to have some hemoconcentration and acute kidney injury. He although her degree of uremia would not make me think this her renal function is causing her degree of confusion. She does have a prior history of NPH listed I do not know if this was ruled out her a continued diagnosis. I did not of the patient ever followed up with cisternogram or Neurosurgery as outpatient. If mentation does not improve with hydration if this workup was not completed and may be beneficial to do so. At this time will hold the patient's diuretic therapy. And provide IV fluid hydration. I do not know if the patient possibly had access to her home medications could be possible that she took extra medications I am uncertain. We may need to hold the patient's home Lantus pain. Given the patient's recurrent urinary tract infections it would be prudent to consider discontinuing Farxiga altogether. The glucose load in the patient's urine may be increasing her frequency of urinary tract infections. Will hold while in the hospital place patient on sliding scale insulin with Accu-Cheks a.c. HS. Patient has been changed to a consistent carbohydrate diet. Will order auto titrating CPAP/BiPAP. Will see if patient will use the device while hospitalized. Will repeat CBC and BMP. on 10/28 patient caregiver who is RN was present in the room state patient has vascular dementia as CT scan of the head showed Moderate atrophy and chronic white matter change. Atherosclerotic intracranial calcification and patient symptoms are worsening. Upon arrival patient BUN and creatinine were elevated resulting in dehydration and possible causing confusion however a serum creatinine and BUN in a trending down and patient remained clinically confused. on 10/29 patient's was present in the room, patient is unable take care of the patient. anesthesiologist and critical care is working with the patient caregiver and family for the placement. on 10/30 no family member or child care cook was present, patient is unable to provide any ROS, patient had an episode of vomiting, KUB did not show any obstruction, on 10/31 patient caregiver was present, patient is confused, family is trying to find a place for the patient, earlier when I saw the patient on 11/01, no family was present, later in the afternoon family arrived, they have filled applications on couple of assisted living places waiting for answers, today patient with help of PT is sitting in the chair, trying to ear her breakfast, will continue to monitor, Subjectiv
[2023-11-03 17:41] LABS: Glucose Point of Care 150 mg/dl (65-105)
[2023-11-03] MEDS: DONEPEZIL HCL 5 MG TABLET PO (20:09)
[2023-11-03 21:36] VITALS: BP 117/52; PULSE 90; RESP 18; TEMP 36.4; O2SAT 96
[2023-11-03] MEDS: cefTRIAXone 1 GM VIAL IM (22:04)
[2023-11-03 23:34] LABS: Glucose Point of Care 142 mg/dl (65-105)
[2023-11-04 05:41] VITALS: BP 112/62; PULSE 81; RESP 18; TEMP 36.5; O2SAT 95
[2023-11-04] MEDS: LEVOTHYROXINE SODIUM 125 MCG TABLET PO (05:45)
[2023-11-04 06:51] LABS: Hematocrit 36.4 % (37.0-47.0); Hemoglobin 11.5 g/dL (12.0-15.0); Mean Corpuscular HGB Conc 31.6 g/dl (32-36); Mean Corpuscular Volume 88.8 fl (80-100); Mean Platelet Volume 10.4 fl (7.4-10.4); Platelet Count Result 418 k/mm3 (150-375); Red Cell Distribution Width 14.5 % (11.5-14.5)
[2023-11-04 07:05] LABS: Anion Gap 9 mmol/L (4-12); Blood Urea Nitrogen 13 mg/dL (7-17); Calcium 9.1 mg/dL (8.4-10.2); Carbon Dioxide 24 mmol/L (22-30); Chloride 102 mmol/L (98-107); Estimated CRCL calculation 34 ml/min; Estimated Glomerular Filt Rate 40; Glucose 137 mg/dL (65-110); Magnesium 2.1 mg/dL (1.6-2.3); Sodium 135 mmol/L (137-145)
[2023-11-04 08:42] LABS: Glucose Point of Care 132 mg/dl (65-105)
[2023-11-04 08:47] VITALS: PULSE 80
[2023-11-04] MEDS: MEMANTINE 5 MG TABLET PO (08:47)
[2023-11-04] MEDS: cilostazoL 100 MG TABLET PO ×2 (08:47→17:16)
[2023-11-04] MEDS: METOPROLOL SUCCINATE EXT REL 25 MG TABCR 75 MG PO (08:47)
[2023-11-04] MEDS: CHOLECALCIFEROL 1,000 UNITS TABLET 2000 UNITS PO (08:47)
[2023-11-04] MEDS: OLANZapine 5 MG TABLET PO ×2 (08:47→17:16)
[2023-11-04] MEDS: MAGNESIUM OXIDE 400 MG TABLET PO (08:47)
[2023-11-04] MEDS: HEPARIN SODIUM 5,000 UNITS/ML VIAL 5000 UNITS SUB-Q ×2 (08:48→20:12)
--- NOTE | 2023-11-04 12:25 | WPDPN ---
Progress Note: A&P Assessment and Plan (1) Altered mental status: Qualifiers: Altered mental status type: unspecified Qualified Code(s): R41.82 - Altered mental status, unspecified Code(s): R41.82 - Altered mental status, unspecified Status: Acute (2) Dehydration: Code(s): E86.0 - Dehydration Status: Acute (3) UTI (urinary tract infection): Qualifiers: Urinary tract infection type: site unspecified Hematuria presence: without hematuria Qualified Code(s): N39.0 - Urinary tract infection, site not specified Code(s): N39.0 - Urinary tract infection, site not specified Status: Resolved (4) DM type 2 (diabetes mellitus, type 2): Qualifiers: Diabetes mellitus fdc insulin use: unspecified fdc insulin use status Diabetes mellitus complication status: without complication Qualified Code(s): E11.9 - Type 2 diabetes mellitus without complications Code(s): E11.9 - Type 2 diabetes mellitus without complications Status: Chronic (5) PHYLICIA on CPAP: Code(s): G47.33 - Obstructive sleep apnea (adult) (pediatric) Status: Chronic (6) NPH (normal pressure hydrocephalus): Code(s): G91.2 - (Idiopathic) normal pressure hydrocephalus Status: Acute Plan Patient has altered mental status. Is not due to infection as her UTI has clearly responded to the antibiotic therapy. The patient does seem to have some hemoconcentration and acute kidney injury. He although her degree of uremia would not make me think this her renal function is causing her degree of confusion. She does have a prior history of NPH listed I do not know if this was ruled out her a continued diagnosis. I did not of the patient ever followed up with cisternogram or Neurosurgery as outpatient. If mentation does not improve with hydration if this workup was not completed and may be beneficial to do so. At this time will hold the patient's diuretic therapy. And provide IV fluid hydration. I do not know if the patient possibly had access to her home medications could be possible that she took extra medications I am uncertain. We may need to hold the patient's home Lantus pain. Given the patient's recurrent urinary tract infections it would be prudent to consider discontinuing Farxiga altogether. The glucose load in the patient's urine may be increasing her frequency of urinary tract infections. Will hold while in the hospital place patient on sliding scale insulin with Accu-Cheks a.c. HS. Patient has been changed to a consistent carbohydrate diet. Will order auto titrating CPAP/BiPAP. Will see if patient will use the device while hospitalized. Will repeat CBC and BMP. on 10/28 patient caregiver who is RN was present in the room state patient has vascular dementia as CT scan of the head showed Moderate atrophy and chronic white matter change. Atherosclerotic intracranial calcification and patient symptoms are worsening. Upon arrival patient BUN and creatinine were elevated resulting in dehydration and possible causing confusion however a serum creatinine and BUN in a trending down and patient remained clinically confused. on 10/29 patient's was present in the room, patient is unable take care of the patient. neonatal intensive care unit nurse is working with the patient caregiver and family for the placement. on 10/30 no family member or daycare provider was present, patient is unable to provide any ROS, patient had an episode of vomiting, KUB did not show any obstruction, on 10/31 patient caregiver was present, patient is confused, family is trying to find a place for the patient, earlier when I saw the patient on 11/01, no family was present, later in the afternoon family arrived, they have filled applications on couple of assisted living places waiting for answers, patient is sitting in the bed, her nurse is present in the room, patient remains confused, waiting for a placement to a memor
[2023-11-04 12:30] LABS: Glucose Point of Care 138 mg/dl (65-105)
[2023-11-04 14:00] VITALS: BP 148/79; PULSE 101; RESP 18; TEMP 36.8; O2SAT 96
[2023-11-04 17:27] LABS: Glucose Point of Care 134 mg/dl (65-105)
[2023-11-04] MEDS: DONEPEZIL HCL 5 MG TABLET PO (20:12)
[2023-11-04 21:02] LABS: Glucose Point of Care 136 mg/dl (65-105)
[2023-11-04 21:05] VITALS: BP 165/80; PULSE 89; RESP 20; TEMP 36.4; O2SAT 100
[2023-11-05 05:54] LABS: Hematocrit 36.7 % (37.0-47.0); Hemoglobin 11.7 g/dL (12.0-15.0); Mean Corpuscular HGB Conc 31.9 g/dl (32-36); Mean Corpuscular Hemoglobin 28.3 pg (26-34); Mean Corpuscular Volume 88.6 fl (80-100); Mean Platelet Volume 10.4 fl (7.4-10.4); Platelet Count Result 385 k/mm3 (150-375); Red Blood Count 4.14 M/mm3 (4.2-5.4); Red Cell Distribution Width 14.4 % (11.5-14.5); White Blood Count 8.7 K/mm3 (4.5-10.0)
[2023-11-05 06:07] LABS: Anion Gap 10 mmol/L (4-12); Blood Urea Nitrogen 12 mg/dL (7-17); Calcium 9.2 mg/dL (8.4-10.2); Carbon Dioxide 23 mmol/L (22-30); Chloride 102 mmol/L (98-107); Estimated CRCL calculation 37 ml/min; Estimated Glomerular Filt Rate 44; Glucose 116 mg/dL (65-110); Magnesium 2.1 mg/dL (1.6-2.3); Sodium 135 mmol/L (137-145)
[2023-11-05] MEDS: LEVOTHYROXINE SODIUM 125 MCG TABLET PO (06:20)
[2023-11-05 06:31] VITALS: BP 116/69; PULSE 97; RESP 16; TEMP 36.6; O2SAT 95
[2023-11-05 08:37] LABS: Glucose Point of Care 118 mg/dl (65-105)
[2023-11-05] MEDS: CYANOCOBALAMIN INJ 1,000 MCG/ML VIAL 1000 MCG IM (09:00)
[2023-11-05] MEDS: CYANOCOBALAMIN 1,000 MCG TABLET 1000 MCG PO (09:00)
[2023-11-05] MEDS: MAGNESIUM OXIDE 400 MG TABLET PO (09:01)
[2023-11-05] MEDS: CHOLECALCIFEROL 1,000 UNITS TABLET 2000 UNITS PO (09:01)
[2023-11-05] MEDS: HEPARIN SODIUM 5,000 UNITS/ML VIAL 5000 UNITS SUB-Q (09:01)
[2023-11-05] MEDS: METOPROLOL SUCCINATE EXT REL 25 MG TABCR 75 MG PO (09:01)
[2023-11-05] MEDS: cilostazoL 100 MG TABLET PO (09:01)
[2023-11-05] MEDS: OLANZapine 5 MG TABLET PO (09:01)
[2023-11-05] MEDS: MEMANTINE 5 MG TABLET PO (09:01)
[2023-11-05 12:20] LABS: Glucose Point of Care 114 mg/dl (65-105)
--- NOTE | 2023-11-05 13:06 | PM.DS ---
DS: Admitting Diagnosis Discharge Date 11/05/23 Admitting Diagnosis Altered mental status DS: Discharge Diagnosis Discharge Diagnosis (1) Altered mental status: Qualifiers: Altered mental status type: unspecified Qualified Code(s): R41.82 - Altered mental status, unspecified Code(s): R41.82 - Altered mental status, unspecified Status: Acute (2) Dehydration: Code(s): E86.0 - Dehydration Status: Acute (3) UTI (urinary tract infection): Qualifiers: Urinary tract infection type: site unspecified Hematuria presence: without hematuria Qualified Code(s): N39.0 - Urinary tract infection, site not specified Code(s): N39.0 - Urinary tract infection, site not specified Status: Resolved (4) DM type 2 (diabetes mellitus, type 2): Qualifiers: Diabetes mellitus retirement insulin use: unspecified superintendent terminal insulin use status Diabetes mellitus complication status: without complication Qualified Code(s): E11.9 - Type 2 diabetes mellitus without complications Code(s): E11.9 - Type 2 diabetes mellitus without complications Status: Chronic (5) PHYLICIA on CPAP: Code(s): G47.33 - Obstructive sleep apnea (adult) (pediatric) Status: Chronic (6) NPH (normal pressure hydrocephalus): Code(s): G91.2 - (Idiopathic) normal pressure hydrocephalus Status: Acute (7) B12 deficiency: Code(s): E53.8 - Deficiency of other specified B group vitamins Status: Acute DS: Summary Hospital Course Reason for hospitalization: 78yo female with hx of diastolic CHF, aortic stenosis, PAD, HTN, PHYLICIA on CPAP, morbid obesity, DM, hypothyroidism and recurrent UTIs who presented to the ER from home in the company of her due to altered mental status. Please see H&P for details. Hospital Course: Patient was presumably AOx4 per ED notes. However, patient was here in June and was noted to oriented to person only. Note states Dementia symptoms seem to be getting worse. possibly related to NPH. Unclear what her baseline mental status is. Patient had pulled out her IV multiple times today. TSH 5.3 but normal FT4. Folate normal but B12 and Vit D levels low. Replacement ordered. ABG 7.45/37/[address] head showing no acute findings. Discussed with PCP who felt patient has underlying dementia and is also noncompliant. Neuro consulted. We continued her Zyprexa. She did have acute kidney injury with Cr elevated to 1.8. Baseline Cr 0.9. BUN elevated to 25. Patient probably dehydrated. She was given approximately 3 L of IV fluids in the ER. Cr trended down to 1.2. CT abdomen and pelvis showed normal appearing kidneys. Patient was evaluated as outpatient and found to have a UTI. She was started on Cipro but when cultures returned Proteus Mirabilis, patient's antibiotics were switched to Augmentin. She was on day 5 of Augmentin on arrival to the ER. UA here mostly clear. Given the patient's recurrent UTIs, plan was to discontinue Farxiga altogether. Rocephin given once in ED and she completed a course. She worked with PT/OT. She overall did well and was able to be discharged on 11/05/23. Status at Discharge Cognitive/behavioral status at discharge: stable Time Spent with Patient Time attestation: Total time spent providing and/or coordinating discharge services: 34 mintues Time spent: Greater than 30 minutes Exam Narrative: AF 97.8 116/69 97 16 95% ra Gen - NARD Chest - clear anteriorly CV - RRR S1/S2 with 2/6 systolic murmur USB Abd - Soft, obese, NT Ext - no pedal edema. Right LE dressing is clean, dry and intact Neuro - Alert but confused. no focal weakness Psych - pleasant and cooperative Skin - Warm and dry DS: Data Data Completed and Pending Labs on day of discharge: Labs from last 24 hours 11/05/23 11/05/23 11/05/23 12:17 08:31 05:26 WBC 8.7 RBC 4.14 L Hgb 11.7 L Hct 36.7 L MCV 88.6 MCH 2
[2023-11-05 14:00] VITALS: BP 147/63; PULSE 70; RESP 14; TEMP 36.6; O2SAT 100
== END 2023-11-05 14:30 | DRG 57 ==
LOC: ANHED 23:20 → ANH3MED 23:52
PROVIDERS: Family Medicine; Psychiatry & Neurology Neurology; Admitting Provider Internal Medicine; Emergency Provider Emergency Medicine; PCP Internal Medicine; Visit Provider Internal Medicine
DX: G91.2 (Idiopathic) normal pressure hydrocephalus (principal); N17.9 Acute kidney failure, unspecified; I50.32 Chronic diastolic (congestive) heart failure; N39.0 Urinary tract infection, site not specified; I13.0 Hypertensive heart and chronic kidney disease with heart failure and stage 1 through stage 4 chronic kidney disease, or unspecified chronic kidney disease; E86.0 Dehydration; F01.50 Vascular dementia, unspecified severity, without behavioral disturbance, psychotic disturbance, mood disturbance, and anxiety; Z91.199 Patient's noncompliance with other medical treatment and regimen due to unspecified reason; R41.82 Altered mental status, unspecified; E11.22 Type 2 diabetes mellitus with diabetic chronic kidney disease; N18.30 Chronic kidney disease, stage 3 unspecified; G47.33 Obstructive sleep apnea (adult) (pediatric); E53.8 Deficiency of other specified B group vitamins; I35.0 Nonrheumatic aortic (valve) stenosis; E66.01 Morbid (severe) obesity due to excess calories; Z68.36 Body mass index [BMI] 36.0-36.9, adult; I73.9 Peripheral vascular disease, unspecified; E03.9 Hypothyroidism, unspecified; Z20.822 Contact with and (suspected) exposure to COVID-19; E78.5 Hyperlipidemia, unspecified; M19.90 Unspecified osteoarthritis, unspecified site; Z87.891 Personal history of nicotine dependence
CPT/HCPCS: 36415; 36600; 70450; 71045; 74018; 74176; 80048; 80053; 80061; 80307; 81001; 82306; 82607; 82746; 82805; 82948; 83036; 83605; 83690; 83735; 83880; 84100; 84439; 84443; 84480; 84484; 85025; 85027; 85610; 85730; 87040; 87637; 93005; 96365; 96366; 97110; 97161; 97166; 97530; 97535; 99285; A9270; J0696; J1644; J3420; J7030; J7120

== ENCOUNTER 2024-05-10 19:19 | Emergency (ER) | payer MEDICARE, SELFPAY ==
[2024-05-10 19:17] VITALS: BP 135/59; PULSE 82; RESP 14; TEMP 37.2; O2SAT 95
--- NOTE | 2024-05-10 19:59 | ED.GENADULT ---
HPI - General Adult General Chief complaint: Fall Stated complaint: UNWITNESSED FALL, COVID+ Time Seen by Provider: 05/10/24 19:41 History of Present Illness HPI narrative: Patient is a 79-year-old female who presents emergency department with chief complaint of ground level fall. Patient reports that she was in a wheelchair and fell forward the patient has history of Alzheimer's normally alert oriented x2 at baseline patient does report she has some pain in her neck reports that it is worse with movement and improved with rest the patient denies focal neurological the patient was recently diagnosed with COVID Related Data Home Medications ?Medication ?Instructions ?Recorded ?Confirmed ?Last Taken ?Type cholecalciferol (vitamin D3) 50 50 mcg PO DAILY 05/29/23 10/28/23 Unknown History mcg (2,000 unit) capsule Allergies Allergy/AdvReac Type Severity Reaction Status Date / Time Influenza Virus Vaccines Allergy Unknown Anaphylaxis Verified 10/28/23 00:12 Sulfa (Sulfonamide AdvReac Intermediate Rash Verified 10/28/23 00:12 Antibiotics) 1 GENERAL ANESTHISIA LAST Allergy Unknown Other Uncoded 10/28/23 00:12 2 SURGS Review of Systems Review of Systems: A 10 system review of systems was completed on the patient and is negative except for what is stated in the HPI. Nursing and ancillary documentation was reviewed. [facility] Past Medical History Medical History Dementia NPH (normal pressure hydrocephalus) BMI 38.0-38.9,adult Nausea and vomiting in adult Tachycardia Chronic kidney disease, stage 3 Diastolic congestive heart failure Peripheral vascular disease Type 2 diabetes mellitus Degenerative joint disease Aortic stenosis Murmur, heart Vitamin D deficiency Hypothyroidism (acquired) Hyperlipidemia Benign essential hypertension Essential hypertension Body mass index (BMI) 45.0-49.9, adult PHYLICIA on CPAP Surgical History Surgical History History of bladder repair surgery For bladder prolapse. Family History Family History Mother Hypertension, Onset Age: 70 Cerebrovascular accident Patient's mother is Sibling Carcinoma of colon Other Family history of arthritis Family history of coronary artery disease Social History Social History Social History: Surrogate medical decision maker: Dago North, spouse. Code status: Full code. Smoking status: Former smoker Second hand tobacco smoke exposure: No Alcohol intake: never Substance use: never Substance use type: does not use Do You Feel Safe in your Home?: Yes Lack of Transportation: No Lack of Food: Never True Current Housing: I Have Housing Concerned About Future Housing: No Difficulty Paying Gas/Electric Bills: No Difficulty Paying for Meds: No Currently Unemployed: No Education: High School Diploma/GED Difficulty w/ Childcare or Family Care: No Additional living arrangements comments: Lives with spouse in [place]. Spiritual care concerns: No Exam Narrative: GENERAL: Well-appearing, well-nourished, and in no acute distress. HEAD: Normocephalic, atraumatic. EYES: PERRLA and EOMI. ENT: Nares clear, no rhinorrhea or epistaxis. Mucous membranes moist. NECK: Supple. CHEST: Clear to auscultation. No respiratory distress. HEART: Regular rate and rhythm. No murmur heard. Normal peripheral pulses. ABDOMEN: Soft, nontender, nondistended, normal active bowel sounds. EXTREMITIES: Normal range of motion. No edema. SKIN: Warm, dry, no rash. NEURO: No focal deficits. Alert and oriented x2. PSYCH: Normal mood and affect. Course Vital Signs Vital signs: Vital Signs Temperature 37.2 C 05/10/24 19:17 Pulse Rate 82 05/10/24 19:17 Respiratory Rate 14 05/10/24 19:17 Blood Pressure 135/59 L 05/10/24 19:17 Pulse Oximetry 95 05/10/24 19:17 Oxygen Delivery Room Air 05/10/24 19:17 Temperature 37.2 C 05/10/24 19:17 Pulse Rate 82 05/10/24 19:17 Respiratory Rate 14 05/10/24 19:17 Blood Pressure 135/59 L 05/10/24 19:17 Pulse Oximetry 95 05/10/24 19:17 Oxygen Delivery Room Air 05/10/24 19:17 Medical Decision Making MDM Narrative Medical decision making narrative: Differential diagnosis includes head injury, cervical spine fracture CT head was negative CT C-spine was negative Vital Signs Vital Signs: Vital Signs Temperature 37.2 C 05/10/24 19:17 Pulse Rate 82 05/10/24 19:17 Respiratory Rate 14 05/10/24 19:17 Blood Pressure 135/59 L 05/10/24 19:17 Pulse Oximetry 95 05/10/24 19:17 Oxygen Delivery Room Air 05/10/24 19:17 Temperature 37.2 C 05/10/24 19:17 Pulse Rate 82 05/10/24 19:17 Respiratory Rate 14 05/10/24 19:17 Blood Pressure 135/59 L 05/10/24 19:17 Pulse Oximetry 95 05/10/24 19:17 Oxygen Delivery Room Air 05/10/24 19:17 Discharge Plan Discharge Clinical Impression: Head injury, Fall from wheelchair Patient Disposition: NH Shelter/Asst Living Condition: Stable Instructions: Antibiotic Form, Head Injury (ED) Patient Language: Mongolian Prescriptions: No Action magnesium oxide 400 mg (241.3 mg magnesium) Tablet 400 mg PO DAILY Qty: 0 0RF acetaminophen 325 mg Tablet 650 mg PO Q4H PRN (Reason: Headache) Qty: 30 0RF cyanocobalamin (vitamin B-12) [Vitamin B-12] 1,000 mcg Tablet 1,000 mcg PO QAM Qty: 30 0RF cyanocobalamin (vitamin B-12) 1,000 mcg/mL Solution 1,000 mcg IM WEEKLY 21 Days Qty: 3 0RF Rx Instructions: on Wednesdays x 3 doses donepezil [Aricept] 5 mg Tablet 5 mg PO HS Qty: 30 0RF memantine 5 mg tablet 5 mg PO DAILY Qty: 30 0RF cholecalciferol (vitamin D3) 50 mcg (2,000 unit) capsule 50 mcg PO DAILY spironolactone [Aldactone] 25 mg tablet 25 mg PO DAILY Qty: 30 1RF levothyroxine [Synthroid] 125 mcg tablet 125 mcg PO DAILY@0630 Qty: 90 0RF cilostazol 100 mg tablet 100 mg PO BID Qty: 180 0RF olanzapine 5 mg tablet 5 mg PO BID Qty: 60 0RF furosemide 20 mg tablet 60 mg PO QAM Qty: 90 0RF metoprolol succinate 25 mg tablet extended release 24 hr See Rx Instructions .ROUTE .COMPLEX Qty: 90 0RF Dose Instruction: Take 3 tablets by mouth once daily Rx Instructions: Take 3 tablets by mouth once daily cephalexin 500 mg tablet 500 mg PO Q8H Qty: 21 0RF Follow-up/Referrals: Anton Silva MD [Primary Care Provider] - Time of Disposition: 21:09
[2024-05-10 22:06] VITALS: BP 135/61; PULSE 69; RESP 14; O2SAT 96
== END 2024-05-10 22:11 ==
PROVIDERS: Emergency Provider Emergency Medicine; PCP Internal Medicine
DX: S09.90XA Unspecified injury of head, initial encounter (principal); W05.0XXA Fall from non-moving wheelchair, initial encounter; G30.9 Alzheimer's disease, unspecified; F02.80 Dementia in other diseases classified elsewhere, unspecified severity, without behavioral disturbance, psychotic disturbance, mood disturbance, and anxiety; N18.30 Chronic kidney disease, stage 3 unspecified; I50.30 Unspecified diastolic (congestive) heart failure; E55.9 Vitamin D deficiency, unspecified; E03.9 Hypothyroidism, unspecified; E78.5 Hyperlipidemia, unspecified; I13.0 Hypertensive heart and chronic kidney disease with heart failure and stage 1 through stage 4 chronic kidney disease, or unspecified chronic kidney disease; G47.33 Obstructive sleep apnea (adult) (pediatric); Z99.89 Dependence on other enabling machines and devices; Z87.891 Personal history of nicotine dependence
CPT/HCPCS: 70450; 72125; 99284

== ENCOUNTER 2024-07-20 09:54 | Outpatient (CLI) | payer MEDICARE, SELFPAY ==
--- OUTSIDE RECORDS SUMMARY | 2024-07-20 10:05 | XMS_ITS | Encounter Summary ---
Author Organization [facility] Address [facility] [place] [address] Care Team Providers Care Tray Service Worker Name Role Phone Racheal Avelar MD Primary Care Provider + [phone] Abdiel Santamaria MD Unavailable [phone] Cisco Salcido MD Primary Care Provider [phone] Anton Silva MD Primary Care Provider [phone] Encounter Details Date Type Department Care Team (Late Contact Info) Description 10/01/2018 Prep for Procedure [facility] [address] [place] [address] Taz Kelley MD Social History Tobacco Use Types Packs/Day Years Used Date Smoking Tobacco: Former Cigarettes Q uit: 1980 Smokeless Tobacco: Never Alcohol Use Standard Drinks/Week Comments Yes 1.7 (1 standard drink = 0.6 oz p ure alcohol) seldom, once every 4 mos AUDIT-C Answer Date Recorded Frequency of Alcohol Consumption Never 01/14/2018 Average Number of Drinks Not on file 018 Frequency of Binge Drinking Not on file 09/2017 Comments No Sex and Gender Information Value Date Recorded Sex Assigned at Not on file Legal Sex Female 6:34 PM CDT Gender Identity Not on file Sexual Orientation Not on file documented as of this encounter Plan of Treatment Upcoming Encounters Date Type Department Care Team (Late Contact Info) Description 09/24/2024 10:40 AM CDT Office Visit [facility] [place] - [address], [address] [place] [address] Paolo Cazares MD [address] [place] [address] documented as of this encounter Results * ECG 12 lead (10/05/2018 2:01 PM CDT) 10/05/2018 2:01 PM CDT Narrative [facility] ([facility]) RAD - 10/05/2018 6:31 PM CDT [facility] Test Date: 2018-10-05 Pat Name: RACHEAL NORTH Department: Room: Gender: Female 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: : 1945 Requested By: TAZ KELLEY Order Number: [id number] Reading MD: Zeeshan Avelar Measurements Intervals [place] Rate: 81 P: 52 [place]Y: 171 QRS: 96 QRSD: 109 T: 47 QT: 412 QTc: 478 Interpretive Statements SINUS RHYTHM WITH SINUS ARRHYTHMIA BORDERLINE RIGHT AXIS DEVIATION LOW QRS VOLTAGE IN PRECORDIAL LEADS MINIMAL ST DEPRESSION Compared to ECG 11/09/2015 18:04:40 Low QRS voltage now present ST (T wave) deviation now present Myocardial infarct finding no longer present us Taz Kelley MD ECG ORDERABLES Final Resul t [facility] ([facility]) RAD * (ABNORMAL) URINALYSIS WI REFLEX TO CULTURE (10/05/2018 1:37 PM CDT) COLOR (U) YELLOW 10/05/2018 2:13 PM CDT [facility] TRANSPARENCY CLEAR 10/05/2018 2:13 PM CDT [facility] SPECIFIC GRAVITY (U) 1.015 1.000 - 1.030 10/05/2018 2:13 PM CDT [facility] U PH 5.5 5.0 - 9.0 10/05/2018 2:13 PM CDT [facility] LEUKOCYTES (U) 1+(A) NEGATIVE 10/05/2018 2:13 PM CDT [facility] NITRITES NEGATIVE NEGATIVE 10/05/2018 2:13 PM CDT [facility] PROTEIN (U) NEGATIVE NEGATIVE 10/05/2018 2:13 PM CDT [facility] URINE GLUCOSE NEGATIVE NEGATIVE 10/05/2018 2:13 PM CDT [facility] KETONES MG/DL (U) NEGATIVE NEGATIVE 10/05/2018 2:13 PM CDT [facility] BILIRUBIN (U) NEGATIVE NEGATIVE 10/05/2018 2:13 PM CDT [facility] BLOOD (U) NEGATIVE NEGATIVE 10/05/2018 2:13 PM CDT [facility] WBC/HPF 0-5 0 - 5 /HPF 10/05/2018 2:13 PM CDT [facility] RBC/HPF NONE SEEN 0 - 5 /HPF 10/05/2018 2:13 PM CDT [facility] EPI/HPF MODERATE /HPF 10/05/2018 2:13 PM CDT [facility] CULTURE & SENSITIVITY INDICATED? SPECIMEN SETUP FOR CULTURE 10/05/2018 2:13 PM CDT [facility] BACTERIA (U) FEW /HPF 10/05/2018 2:13 PM CDT [facility] URINE SPECIMEN OBTAINED BY CLEAN CATCH PROCEDURE / Unknown 10/05/2018 1:37 PM CDT us Taz Kelley MD URINE ORDERABLES Final Resu lt Performing Organization Address City/[facility] [address]/ZIP Co de Phone Number [facility] [address] [place] [address], [place] [phone] * TYPE & SCREEN (10/05/2018 1:37 PM CDT) ABO/RH B NEGATIVE 10/05/2018 2:13 PM CDT [facility] ANTIBODY SCREEN NEGATIVE 2:45 PM CDT [facility] SAMPLE EXPIRATION 10/15/2018 10/05/2018 2:13 PM CDT [facility] 10/05/2018 1:37 PM CDT Taz Kelley MD BLOOD BANK TEST ORDERABLES Final Result Performing Organization Address [facility] [address]/ZIP Co de Phone Number [facility] [address] [place] [address], [place] [phone] * (ABNORMAL) MRSA SCREENING (10/05/2018 1:37 PM CDT) SPEC DESCRIPTION NASAL 10/05/2018 1:30 PM CDT [facility] SPECIAL REQUESTS NO SPECIAL REQUEST 10/05/2018 1:30 PM CDT [facility] CULTURE RESULT POSITIVE METHICILLIN RESISTANT STAPHYLOCOCCUS AUREUS (A) 10/06/2018 4:03 PM CDT [facility] SPECIMEN FROM INTERNAL NOSE / Unknown 10/05/2018 1:37 PM CDT 10/05/2018 1:44 PM CDT us Taz Kelley MD MICROBIOLOGY - GENERAL KAITLIN CONTRERAS Final Result [facility] [address] [place] [address], [place] [phone] * (ABNORMAL) CBC, AUTO, NO DIFF (10/05/2018 1:37 PM CDT) WBC 5.2 4.4 - 11.0 x10'3/uL 10/05/2018 2:53 PM CDT [facility] RBC 4.24(L) 4.50 - 5.10 x10'6/uL 10/05/2018 2:53 PM CDT [facility] HGB 12.3 12.3 - 15.3 G/DL 10/05/2018 2:53 PM CDT [facility] HCT 38.3 35.9 - 44.6 % 10/05/2018 2:53 PM CDT [facility] MCV 90.3 80.0 - 96.0 FL 10/05/2018 2:53 PM CDT [facility] MCH 29.0 25.3 - 30.9 PG 10/05/2018 2:53 PM CDT [facility] MCHC 32.1 31.0 - 34.1 G/DL 10/05/2018 2:53 PM CDT [facility] RDW 16.3(H) 12.4 - 15.1 % 10/05/2018 2:53 PM CDT [facility] PLT 263 151 - 353 x10'3/uL 10/05/2018 2:53 PM CDT [facility] MPV 11.6 9.6 - 12.0 FL 10/05/2018 2:53 PM CDT [facility] 10/05/2018 1:37 PM CDT us Taz Kelley MD LABORATORY Final Resul t [facility] [address] [place] [address], [place] [phone] * (ABNORMAL) BASIC METABOLIC PANEL (10/05/2018 1:37 PM CDT) GLUCOSE 112(H) 70 - 99 MG/DL 10/05/2018 2:09 PM CDT [facility] BUN 20(H) 7 - 18 MG/DL 10/05/2018 2:09 PM CDT [facility] CREATININE S/P/B 1.12(H) 0.55 - 1.02 MG/DL 10/05/2018 2:09 PM CDT [facility] SODIUM S/P/B 141 136 - 145 MMOL/L 10/05/2018 2:09 PM CDT [facility] POTASSIUM S/P/B 4.5 3.5 - 5.1 MMOL/L 10/05/2018 2:09 PM CDT [facility] CHLORIDE S/P/B 105 100 - 108 MMOL/L 10/05/2018 2:09 PM CDT [facility] CO2 26.5 21 - 32 MMOL/L 10/05/2018 2:09 PM CDT [facility] CALCIUM S/P/B 9.5 8.5 - 10.1 MG/DL 10/05/2018 2:09 PM CDT [facility] ANION GAP 9.5 5 - 15 MMOL/L 10/05/2018 2:09 PM CDT [facility] BUN CREATININE RATIO 17.9 6 - 26 10/05/2018 2:09 PM CDT [facility] EGFR NON-AFR. AMER. 49(L) >90 ML/MIN/1.7 3 M2 10/05/2018 2:09 PM CDT [facility] EGFR AFR. AMER. 57(L) >90 ML/MIN/1.7 3 M2 10/05/2018 2:09 PM CDT [facility] Comment: NOTE: eGFR is not calculated for patients <18 years of age. This is an estimated GFR (CKD EPI) and should not be used for calculating drug doses. 10/05/2018 1:37 PM CDT us Taz Kelley MD LABORATORY Final Resul t [facility] [address] [place] [address], documented in this encounter Visit Diagnoses Diagnosis Preop testing- Primary Preoperative examination, unspecified Preop testing Preoperative examination, unspecified documented in this encounter Additional Health Concerns Infection Onset Date Last Indicated Resolved Time MRSA Comment:10/05/18- positive MRSA screen 10/12/2018 10/12/2018 ESBL - Extended Spectrum Bet a-lactamase Comment:10/11/21 urine (JK) 10/18/22 urine (JK) 10/13/2021 10/18/2022 documented as of this encounter Care Teams Tray Service Worker Relationship Specialty Start Date End Date Racheal Avelar MD PCP - General INTERNAL MEDICINE 12/17/17 04/29/22 [place] [address] [place] [address] PCP - General FAMILY PRACTICE 04/30/22 12/25/22 Anton Silva MD [address] [place] [address] PCP - General INTERNAL MEDICINE 01/01/24 Abdiel Santamaria MD [facility] [address] [place] [address] [place] Duty Manager INTERVENTIONAL CARDIOLOGY 10/08/18 documented as of this encounter
--- OUTSIDE RECORDS SUMMARY | 2024-07-20 10:05 | XMS_ITS | Clinical Summary ---
Author Organization [facility] Address [facility] [place] [address] Care Team Providers Care Cup Trimming Machine Operator Name Role Phone Abdiel Santamaria MD Unavailable [phone] Anton Silva MD Primary Care Provider [phone] Allergies Active Allergy Reactions Criticality Noted Date Comments Dulaglutide Nausea and Vomiting 04/09/2021 Semaglutide(0.25 Or 0.5mg-Dos) Nausea and Vomiting 04/09/2021 Statins Other (see comment) Medium 03/04/2022 Hair loss Sulfa Antibiotics Itching,Rash,Swellin g,Vo miting Low 01/14/2018 Sulfasalazine Anaphylaxis High 04/09/2021 Medications Multiple Vitamins-Minerals (CENTRUM) Chew TabIndications:urbina pplement Chew 1 tablet by mouth 2 (two) times daily. Indications: supplement 03/29/19 15 Active lidocaine 5 %Indications:arth ritic pain Place 1 patch onto the skin as needed for Pain. Indications: arthritic pain 01/17/20 17 Active Glucosamine-Chond roit-Vit C-Mn (GLUCOSAMINE-AVIS DROITIN) Tab Take 1 tablet by mouth daily. 10/17/19 19 Active CPAP MACHINEIndication s:Sleep Apnea nightly at bedtime. Indications: Sleep Apnea 10/17/19 19 Active albuterol sulfate HFA 108 (90 Base) MCG/ACT inhalerIndication s:shortness of breath INHALE 1 PUFF BY MOUTH NEEDED FOR SHORTNESS OF BREATH 3 Inhaler 1 08/25/19 20 Active diclofenac sodium 1 % gelIndications:ar thritis APPLY 2 GRAMS TOPICALLY 4 TIMES DAILY TO AFFECTED AREAS. 3 Tube 1 08/25/19 20 Active EPINEPHrine (EPIPEN 2-JENNY) 0.3 MG/0.3ML injectionIndicati ons:allergic reactions Inject 0.3 mLs (0.3 mg total) into the muscle as needed for Anaphylaxis. 2 each 1 08/25/19 Active CPAP MASKIndications:O SA on CPAP 1 Units by Apply to Face route nightly. 1 Units 1 08/25/19 Active CPAP SUPPLIESIndicatio ns:PHYLICIA on CPAP Pt needs CPAP mask and supplies reordered 1 Device 3 08/26/19 Active nystatin powderIndications :rash Apply topically 2 (two) times daily. 60 g 2 01/25/20 Active VALACYCLOVIR 1 g tabletIndications :preventative Take 1 tablet by mouth twice daily 21 tablet 02/01/20 Active silver sulfADIAZINE (SILVADENE) 1 % creamIndications: Folliculitis Apply topically daily. Try a small area first to be sure no allergic reaction then apply daily 50 g 02/14/20 Active ALLOPURINOL 300 MG tabletIndications :gout Take 1 tablet by mouth once daily 90 tablet 12/05/19 21 Active Magnesium 100 MG TabIndications:Hy pomagnesemia Take 1 tablet by mouth daily. 90 tablet 3 05/13/19 22 Active levothyroxine (SYNTHROID) 200 MCG tabletIndications :thyroid Indications: thyroid 12/30/19 Active diphenhydrAMINE (BENADRYL) 25 MG tabletIndications :allergy daily. Indications: allergy Active Cyanocobalamin (B-12) 1000 MCG TabIndications:urbina pplement daily. Indications: supplement Active METFORMIN HCL ER ORIndications:DM every 8 (eight) hours. Indications: DM 500mg 12/30/19 21 Active Vitamin D3, cholecalciferol, 2000 UNIT Tab tabletIndications :supplement daily. Indications: supplement Active traMADol (ULTRAM) 50 MG tabletIndications :Chronic Pain Take 1 tablet (50 mg total) by mouth 2 (two) times daily. Indications: Chronic Pain 180 tablet 1 11/01/19 22 Active furosemide (LASIX) 80 MG tabletIndications :fluid retention Take 1 tablet (80 mg total) by mouth daily. 90 tablet 1 02/12/20 22 Active famotidine (PEPCID) 20 MG tabletIndications :heartburn Take 1 tablet by mouth twice daily 180 tablet 02/26/20 22 Active naproxen sodium (ALEVE) 220 MG tabletIndications :pain, Take 1 tablet (220 mg total) by mouth daily. Indications: pain, takes 2 aleve daily 04/10/19 23 Active GLUCOSAMINE CHONDROITIN COMPLX ORIndications:sup plement Take 1 each by mouth daily. Indications: supplement 04/10/19 23 Active meloxicam (MOBIC) 15 MG tabletIndications :arthritic pain Take 1 tablet (15 mg total) by mouth daily. 90 tablet 04/16/19 23 Active betamethasone dipropionate 0.05 % creamIndications: Rash, skin Apply to affected area twice per day 45 g 2 07/02/19 23 Active amLODIPine (NORVASC) 5 MG tabletIndications :heart Take 1 tablet (5 mg total) by mouth daily. 90 tablet 1 07/05/19 23 Active pioglitazone (ACTOS) 30 MG tabletIndications :DM TAKE 1 TABLET BY MOUTH EVERY DAY 30 tablet 4 07/19/19 23 Active metoprolol succinate ER (TOPROL-XL) 200 MG 24 hr tabletIndications :HTN TAKE 1 TABLET BY MOUTH ONCE DAILY 90 tablet 1 07/23/19 23 Active Wound Dressings (THERAHONEY EX)Indications:Wo und Care,Left leg Apply 1 each topically 3 (three) times a week. Indications: Wound Care, Left leg 09/17/19 23 Active triamterene-hydro CHLOROthiazide (MAXZIDE-25) 37.5-25 MG tabletIndications :Primary hypertension TAKE 1 TABLET BY MOUTH EVERY DAY 90 tablet 10/10/19 23 Active SYNTHROID 175 MCG tabletIndications :Hypothyroidism TAKE 1 TABLET BY MOUTH EVERY DAY 30MIN BEFORE BREAKFAST 90 tablet 10/10/19 23 Active ciprofloxacin (CIPRO) 500 MG tabletIndications :UTI, uncomplicated (Female) Take 1 tablet (500 mg total) by mouth 2 (two) times daily. Indications: UTI, uncomplicated (Female) 10/23/19 23 Active acetaminophen (TYLENOL) 500 MG tablet 2 every 6 hours as needed for mild pain (500 mg) Active ALPRAZolam (XANAX) 0.25 MG tablet 07/02/19 24 Active cilostazol (PLETAL) 100 MG tablet 12/23/19 24 Active donepezil (ARICEPT) 5 MG Tab 11/29/19 24 Active insulin aspart protamine-aspart (NOVOLOG MIX 70/30 FLEXPEN) (70-30) 100 UNIT/ML injection (PEN) Active lisinopril (PRINIVIL) 10 MG tablet Take 1 tablet (10 mg total) by mouth daily. 04/28/19 24 Active magnesium oxide (MAG-OX) 400 MG tablet Take by mouth daily. Active Active Problems Problem Noted Date Diagnosed Date Venous stasis ulcer of other part of right lower leg with fat layer exposed without varicose veins ([facility]) 02/11/2022 Congestion of nasal sinus 04/19/2021 Lymphadenitis 07/15/2017 GERD (gastroesophageal reflux disease) 7 Pulmonary nodule 07/17/2015 Low back pain 11/28/2014 Type 2 diabetes mellitus wit hout complication, with long-term current use of insulin ([facility]) 10/17/2014 Generalized osteoarthritis of multiple sites PHYLICIA on CPAP 07/25/2014 Adiposity 05/19/2014 Overview (10/14/2018): Overview: Obesity CPAP (continuous positive airway pressure) depen dence 03/29/2014 Localized edema 03/29/2014 Heart murmur 03/29/2014 Hyperlipidemia 03/29/2014 Hypertension 03/29/2014 Hypothyroidism 03/29/2014 Lymphedema 03/29/2014 Immunizations Immunization Administration Dates Next Due Fluzone High Dose - >Age 65 (Prefilled Syringe) 02/24/2019(Deferred: Patient Refused) Influenza Adult (Generic) 01/18/2020(Def erred: Patient/family declined - pt said it makes her very very ill) Pneumococcal (Pneumovax 23) 07/15/2012 Pneumococcal (Prevnar 13) 01/14/2018 Tdap (Generic) 01/15/2012 Family History Medical History Relation Comments Stroke Mother Anesthesia problems Neg Hx Relation Status Comments Father Mother Social History Tobacco Use Types Packs/Day Years Used Date Smoking Tobacco: Former Cigarettes Q uit: 1989 Smokeless Tobacco: Never Tobacco Cessation:Counseling Given: No Alcohol Use Standard Drinks/Week Comments Yes 1.7 (1 standard drink = 0.6 oz p ure alcohol) seldom, once every 4 mos OASIS D0700: Social Isolation Answer Da te Recorded Frequency of experiencing loneliness or isolatio n Never 12/13/2022 OASIS A1250: Transportation Answer Date Recorded Lack of Transportation (Medical) Yes 12/13/2022 Lack of Transportation (Non-Medical) No 12/13/2022 Patient Unable or Declines to Respond No 12/13/2022 OASIS B1300: Health Literacy Answer Sergei e Recorded Frequency of needing help to read materials from doctor or pharmacy Never 12/13/2022 AUDIT-C Answer Date Recorded Frequency of Alcohol Consumption Never 01/14/2018 Average Number of Drinks Not on file 018 Frequency of Binge Drinking Not on file 09/2017 PHQ-2 Answer Date Recorded Patient Health Questionnaire-2 Score 0 06/28/2022 Comments No Sex and Gender Information Value Date Recorded Sex Assigned at Not on file Legal Sex Female 6:34 PM CDT Gender Identity Not on file Sexual Orientation Not on file Last Filed Vital Signs Vital Sign Reading Time Taken Comments Blood Pressure 162/87 01/29/2024 10:53 AM TIRE SETTER Pulse 63 01/29/2024 10:53 AM TIRE SETTER Temperature 37.1 C (98.7 F) 01/20/2024 8:50 AM TIRE SETTER Respiratory Rate 20 01/20/2024 11:23 AM TIRE SETTER Oxygen Saturation 97% 01/29/2024 10:53 AM TIRE SETTER Inhaled Oxygen Concentration - - Weight 154.2 kg (340 lb) 01/15/2024 12:01 AM TIRE SETTER Height 157.5 cm (5' 2 ) 01/29/2024 10:53 AM TIRE SETTER Body Mass Index 62.19 01/15/2024 12:01 AM TIRE SETTER Plan of Treatment Upcoming Encounters Date Type Department Care Team (Late st Contact Info) Description 09/24/2024 10:40 AM CDT Office Visit [facility] Medical [facility] Multispecialty Care - [address], [address] [place] [address] Paolo Cazares MD [address] [place] [id number] Health Maintenance Due Date Last Done Comments Kidney Health Evaluation 1947 Diabetes: Retinopathy Eye Exam 1965 Zoster Vaccines (1 of 2) 1997 Annual Medicare Wellness Visit 2012 Dexa Scan (General) 2012 DTaP, Tdap and Td Vaccines (2 - Td or Tdap) 01/14/2022 01/15/2012 RSV Immunization or 60+ Years (1 - 1-dose 75+ series) 2022 Hemoglobin A1C 08/12/2022 02/11/2022, 03/0 04/2021, 12/26/2020, Additional history exists Lipid Panel 02/11/2023 02/11/2022, 03/0 04/2021, 12/26/2020, Additional history exists COVID-19 Vaccine (2023- season) 2023 PHQ-2 (Physician [place]) 03/10/2024 Pneumococcal Vaccine: 50+ Years Completed 01/14/2018, 07/15/2012 Colorectal Cancer Screening FIT-DNA (3 Years) Discontinued 09/15/2018 Hepatitis C Completed 08/25/2019 Meningococcal B Vaccine Aged Out No l onger eligible based on patient's age to complete this topic Meningococcal Vaccine Aged Out No lenore naman eligible based on patient's age to complete this topic RSV Immunizations Under 20 Months Aged Out No longer eligible based on patient's age to complete this topic Procedures Procedure Name Priority Date/Time Associated Diagnosis Comments LIPID PANEL Routine 02/11/2022 3:16 PM TIRE SETTER Mixed hyperlipidemia HEMOGLOBIN, GLYCOSYLATED Routine 02/11/2022 3:16 PM TIRE SETTER Elevated glucose HEPATITIS C ANTIBODY Routine 08/25/2019 6:14 PM CDT Need for hepatitis C screening test COLOGUARD (SCAN ORDER) Routine 09/15/2018 from Last 3 Months or Most Recently Relevant to Health Maintenance Results * (ABNORMAL) HEMOGLOBIN, GLYCOSYLATED (02/11/2022 3:16 PM TIRE SETTER) HGB A1C 6.1(H) <5.7 % 02/11/2022 7:39 PM TIRE SETTER [facility] Comment: INCREASED RISK OF DIABETES <5.7% NON-DIABETES 5.7-6.4% INCREASED RISK FOR FUTURE DIABETES > OR = 6.5 CONSISTENT WITH DIABETES STANDARDS OF MEDICAL CARE IN DIABETES-2010 DIABETES CARE, 33(SUPP 1): S1-S61,2010 ESTIMATED AVG GLUCOSE 128 mg/dL 02/11/2022 7:39 PM [facility] 02/11/2022 3:16 PM TIRE SETTER Racheal Avelar MD LABORATORY Final Result [facility] [address] [place] [address], [place] [phone] * (ABNORMAL) LIPID PANEL (02/11/2022 3:16 PM TIRE SETTER) CHOLESTEROL 247(H) <200.0 MG/DL 02/11/2022 7:56 PM [facility] TRIGLYCERIDES 156(H) <150 MG/DL 02/11/2022 7:56 PM [facility] HDL 56 >40.0 MG/DL 02/11/2022 7:56 PM [facility] LDL (CALCULATED) 160(H) <100 MG/DL 02/11/2022 7:56 PM [facility] NON HDL CHOLESTEROL 191(H) <130 MG/DL 02/11/2022 7:56 PM [facility] CHOL/HDL RATIO 4.4 0.0 - 4.5 02/11/2022 7:56 PM [facility] VLDL CALCULATION 31 5 - 55 MG/DL 02/11/2022 7:56 PM [facility] LIPID INTERPRETATION 02/11/2022 7:56 PM [facility] Comment: NIH CONCENSUS REPORT RECOMMENDATIONS: ADULT CHILD LOW RISK: CHOLESTEROL <200 <170 TRIGLYCERIDE <150 --- HDL >=60 --- LDL <100 <110 BORDERLINE: CHOLESTEROL 200-239 170-199 TRIGLYCERIDE 150-199 --- HDL 40-59 --- LDL 100-159 110-129 HIGH RISK: CHOLESTEROL >=240 >=200 TRIGLYCERIDE >=200 --- HDL <40 --- LDL >=160 >=130 02/11/2022 3:16 PM TIRE SETTER Racheal Avelar MD LABORATORY Final Result [facility] [address] [place] [address], [place] [phone] * HEPATITIS C ANTIBODY (08/25/2019 6:14 PM CDT) HEPATITIS C AB NON-REACTI VE NON-REACTI VE 08/26/2019 10:28 AM CDT [facility] 08/25/2019 6:14 PM CDT Racheal Avelar MD LABORATORY Final Result Performing Organization Address City/[facility] Co de Phone Number [facility] [address] [place] [address], [place] [phone] * COLOGUARD (SCAN) (09/15/2018) COLOGUARD NEG Stool specimen (specimen) 09/15/2018 us Documents Scanned SCANNING Edited Result - Final from Last 3 Months or Most Recently Relevant to Health Maintenance Additional Health Concerns Infection Onset Date Last Indicated MRSA Comment:10/05/18- positive MRSA screen 10/12/2018 10/12/2018 ESBL - Extended Spectrum Bet a-lactamase Comment:10/11/21 urine (JK) 10/18/22 urine (JK) 10/13/2021 10/18/2022 Insurance [employer] Advance Directives * Full Code (Latest Code Status on File) Date Activated Date Inactivated Comments 10/31/2022 3:12 PM 01/20/2024 8:24 AM * Full Code Date Activated Date Inactivated Comments 09/02/2022 1:14 PM 10/31/2022 3:12 PM Care Teams Cup Trimming Machine Operator Relationship Specialty Start Date End Date Anton Silva MD [address] - [facility] [address] [place] [id number] PCP - General INTERNAL MEDICINE 01/01/24 Abdiel Santamaria MD [facility]. [facility] [address] [place] [address] Embudo Bobbin Stripper INTERVENTIONAL CARDIOLOGY 10/08/18
--- OUTSIDE RECORDS SUMMARY | 2024-07-20 10:05 | XMS_ITS | Encounter Summary ---
Author Organization [facility] Address [facility] [place] [address] Care Team Providers Care Branch Chief Name Role Phone Racheal Avelar MD Primary Care Provider [phone] Abdiel Santamaria MD Unavailable [phone] Cisco Salcido MD Primary Care Provider [phone] Anton Silva MD Primary Care Provider [phone] Encounter Details Date Type Department Care Team (Late Contact Info) Description 10/26/2018 Prep for Procedure [facility] [address] [place] [address] Taz Garduno MD Social History Tobacco Use Types Packs/Day Years Used Date Smoking Tobacco: Former Cigarettes Q uit: 1989 Smokeless Tobacco: Never Alcohol Use Standard Drinks/Week [...] Description 09/24/2024 10:40 AM CDT Office Visit [facility] Multispecialty [facility] - [address], [address] [place] [address] Paolo Cazares MD [address] [place] [address] documented as of this encounter Visit Diagnoses Diagnosis Preop testing- Primary Preoperative examination, unspecified documented in this encounter Additional Health Concerns Infection Onset Date Last Indicated Resolved Time MRSA Comment:10/05/18- positive MRSA screen 10/12/2018 10/12/2018 ESBL - Extended Spectrum Bet a-lactamase Comment:10/11/21 urine (JK) 10/18/22 urine (JK) 10/13/2021 10/18/2022 documented as of this encounter Care Teams Branch Chief Relationship Specialty Start Date End Date Racheal Avelar MD PCP - General INTERNAL MEDICINE 12/17/17 04/29/22 [place] [address] [place] [address] PCP - General FAMILY PRACTICE 04/30/22 12/25/22 Anton Silva MD [address] [facility] [address] [place] [address] PCP - General INTERNAL MEDICINE 01/01/24 Abdiel Santamaria MD [facility]. [facility] [address] [place] [address] [employer] Assistant INTERVENTIONAL CARDIOLOGY 10/08/18 documented as of this encounter
--- OUTSIDE RECORDS SUMMARY | 2024-07-20 10:05 | XMS_ITS ---
Author Name Auto Generated, Auto Generated Organization [facility] Address [address] [place] [address] Phone [phone] Care Team Providers Care Order Taker Name Role Phone Isreal Marquis Unavailable [phone] Scar Kay Unavailable Functional Status No Results Mental Status No Results Allergies and Intolerances Name Onset Date Reaction Severity Sulfa (Sulfonamide Antibiotics) (Allergy) Fri 17:29:00 EDT 2023 Influenza Virus Vaccines (Allergy) FriJun 22 17 :29:00 EDT 2023 Encounters Program Name Primary Diagnosis Admission Date/Time Dis charge Date/Time [facility] FriJun 22 13:15:00 EDT 2023July 28 10:00:00 EDT 2023 Medications Medication Directions Start Date End Date miconazole nitrate 2 % topical cream 1 application CREAM (GRAM) Topical PRN 2 Times Daily Indication: Antifungal Apply to buttocks/coccyx area twice daily FriJuly 24 08:08:00 EDT 2023July 28 01:00:00 EDT 2023 tolnaftate 1 % topical powder 1 APPLICATION POWDER (GRAM) Topical PRN 2 Times Daily Indication: Apply to dmitri- area FriJuly 24 08:09:00 EDT 2023July 28 01:00:00 EDT 2023 furosemide 20 mg tablet 3 tablets TABLET Oral 1 Time Daily Indication: Edema 60mg total FriJuly 20 12:12:00 EDT 2023July 28 01:00:00 EDT 2023 furosemide 40 mg tablet 1 tab TABLET Ora l 1 Time Daily Indication: Edema FriJuly 08 13:50:00 EDT 2023July 20 12:18:00 EDT 2023 OLANZapine 5 mg tablet 1 tab TABLET Oral 2 Times Daily Indication: Psychosis, paranoia FriJuly 08 16:35:00 EDT 2023July 28 01:00:00 ED2023 nitrofurantoin monohydrate/macrocrystals 100 mg capsule 1 capsule CAPSULE Oral 2 Times Daily for 5 Days Indication: UTI FriJul 04 07:00:00 EDT 2023July 09 06:59:00 ED2023 ALPRAZolam 0.25 mg tablet 1 TABLET TABLE T Oral PRN 3 Times Daily for 14 Days Indication: Agitation FriJun 25 12:00:00 EDT 2023July 09 11:59:00 ED2023 Jacob 7 gram-7 gram-1.5 gram oral powder packet 1 packet POWDER IN PACKET (EA) Oral 2 Times Daily Indication: Supplement FriJun 25 14:00:00 2023July 28 01:00:00 2023 acetaminophen 500 mg tablet 1 tablet TAB LET Oral Every 6 Hours Indication: Pain FriJun 24 11:15:00 2023July 28 01:00:00 2023 NovoLOG Flexpen U-100 Insulin aspart 100 unit/mL (3 mL) subcutaneous SSI INSULIN PEN (ML) Subcutaneous 3 Times Daily Indication: DM Sliding Scale Insulin: Insulin Units < 60 or > 400 Notify MD;151-200, 3 Units;201-250, 6 Units;251-300, 9 Units;301-350, 12 Units;351-400, 15 Units;. FriJun 23 10:29:00 2023Jun 23 11:39:00 2023 NovoLOG Flexpen U-100 Insulin aspart 100 unit/mL (3 mL) subcutaneous SSI INSULIN PEN (ML) Subcutaneous 2 Times Daily Indication: DM Sliding Scale Insulin: Insulin Units < 60 or > 400 Notify MD;151-200, 3 Units;201-250, 6 Units;251-300, 9 Units;301-350, 12 Units;351-400, 15 Units;. FriJun 23 14:39:00 2023July 28 01:00:00 2023 TubersoL 5 tub. unit/0.1 mL intradermal injection solution 0.1 ml VIAL (ML) Intradermal 1 Time Weekly for 2 Weeks Indication: Rule out TB 1st injection on admission, then one week after. Read between 48 and 72 hours FriJun 23 13:00:00 EDT 2023Jul 07 12:59:00 EDT 2023 TubersoL 5 tub. unit/0.1 mL intradermal injection solution Read Results VIAL (ML) Other 1 Time Weekly for 2 Weeks Indication: Rule out TB Read results between 48-72 hours after 1st and 2nd (1 week apart). If positive do chest x-ray. FriJun 23 13:30:00 EDT 2023Jul 07 13:29:00 EDT 2023 furosemide 20 mg tablet 1 TABLET TABLET Oral 1 Time Daily Indication: Edema FriJun 22 17:30:00 EDT 2023July 08 13:50:00 EDT 2023 metoprolol succinate ER 25 mg tablet,extended release 24 hr 75MG TABLET, EXTENDED RELEASE 24 HR Oral 1 Time Daily Indication: HTN3 TABLETS= 75MG FriJun 22 17:30:00 EDT 2023July 28 01:00:00 EDT 2023 ALPRAZolam 0.25 mg tablet 1 TABLET TABLE T Oral PRN 3 Times Daily Indication: Agitation FriJun 22 17:30:00 EDT 2023Jun 25 12:06:00 EDT 2023 levothyroxine 125 mcg tablet 1 TABLET TA BLET Oral 1 Time Daily Indication: Hypothyroid FriJun 22 17:30:00 EDT 2023July 28 01:00:00 EDT 2023 magnesium oxide 400 mg (241.3 mg magnesium) tablet 1 TABLET TABLET Oral 1 Time Daily Indication: Supplement FriJun 22 17:30:00 EDT 2023July 28 01:00:00 EDT 2023 tolnaftate 1 % topical powder 1 APPLICATION POWDER (GRAM) Topical Every 12 Hours Indication: Apply to dmitri- area FriJun 22 17:30:00 EDT 2023July 24 08:10:00 EDT 2023 Farxiga 5 mg tablet 1 TABLET TABLET Oral 1 Time Daily Indication: HF FriJun 22 17:30:00 EDT 2023July 28 01:00:00 EDT 2023 Probiotic 10 billion cell capsule 1 CAPSULE CAPSULE Oral 1 Time Daily Indication: Probiotic FriJun 22 17:30:00 EDT 2023July 28 01:00:00 EDT 2023 cilostazoL 100 mg tablet 1 TABLET TABLET Oral 2 Times Daily Indication: PAD FriJun 22 17:30:00 EDT 2023July 28 01:00:00 EDT 2023 nystatin 100,000 unit/gram topical powder 1 APPLICATION POWDER (GRAM) Topical 1 Time Daily Indication: Apply to dmitri-area FriJun 22 17:30:00 EDT 2023Jun 22 20:08:00 EDT 2023 cholecalciferol (vitamin D3) 50 mcg (2,000 unit) capsule 1 CAPSULE CAPSULE Oral 1 Time Daily Indication: Supplement FriJun 22 17:30:00 EDT 2023July 28 01:00:00 EDT 2023 Critic-Aid Clear AF (miconazole) 2 % topical ointment 1 APPLICATION OINTMENT (GRAM) Topical 1 Time Daily Indication: Apply to affected area FriJun 22 17:30:00 EDT 2023Jun 23 00:09:00 EDT 2023 spironolactone 25 mg tablet 1 TABLET TAB LET Oral 1 Time Daily Indication: Edema FriJun 22 17:30:00 EDT 2023July 28 01:00:00 EDT 2023 ondansetron 8 mg disintegrating tablet 1 TABLET TABLET,DISINTEGRATING Oral PRN Every 8 Hours Indication: NAUSEA/VOMITING. FriJun 22 17:30:00 EDT 2023July 28 01:00:00 EDT 2023 potassium chloride 20 mEq oral packet 1 PACKET PACKET (EA) Oral 1 Time Daily Indication: Supplement FriJun 22 17:30:00 EDT 2023July 28 01:00:00 EDT 2023 traMADoL 50 mg tablet 1 TABLET TABLET Or al PRN 4 Times Daily Indication: PAIN. FriJun 22 17:30:00 EDT 2023Jun 23 00:17:00 EDT 2023 miconazole nitrate 2 % topical cream 1 application CREAM (GRAM) Topical 2 Times Daily Indication: Antifungal Apply to buttocks/coccyx area twice daily FriJun 23 00:00:00 EDT 2023July 24 08:09:00 EDT 2023 traMADoL 50 mg tablet 50 mg TABLET Oral PRN Every 6 Hours Indication: Pain FriJun 23 00:00:00 EDT 2023July 28 01:00:00 EDT 2023 Problems Active Concerns * Type 2 diabetes mellitus with diabetic chronic kidney disease* Code: * Start Date: FriJun 22 00:00:00 EDT 2023 * End Date: * Text: * Chronic diastolic (congestive) heart failure* Code: * Start Date: FriJun 22 00:00:00 EDT 2023 * End Date: * Text: * Obstructive sleep apnea (adult) (pediatric)* Code: * Start Date: FriJun 22 00:00:00 EDT 2023 * End Date: * Text: * Nonrheumatic aortic (valve) stenosis* Code: * Start Date: FriJun 22 00:00:00 EDT 2023 * End Date: * Text: * Chronic kidney disease, stage 3 unspecified* Code: * Start Date: FriJun 22 00:00:00 EDT 2023 * End Date: * Text: * Hypertensive heart and chronic kidney disease with heart failure and stage 1 through stage 4 chronic kidney disease, or unspecified chronic kidney disease * Code: * Start Date: FriJun 22 00:00:00 EDT 2023 * End Date: * Text: * Hyperlipidemia, unspecified* Code: * Start Date: FriJun 22 00:00:00 EDT 2023 * End Date: * Text: * Hypothyroidism, unspecified* Code: * Start Date: FriJun 22 00:00:00 EDT 2023 * End Date: * Text: * Cardiac murmur, unspecified* Code: * Start Date: FriJun 22 00:00:00 EDT 2023 * End Date: * Text: * Urinary tract infection, site not specified* Code: * Start Date: FriJun 22 00:00:00 EDT 2023 * End Date: * Text: * Acute kidney failure, unspecified* Code: * Start Date: FriJun 22 00:00:00 EDT 2023 * End Date: * Text: * Type 2 diabetes mellitus with foot ulcer* Code: * Start Date: FriJun 22 00:00:00 EDT 2023 * End Date: * Text: * Diaphragmatic hernia without obstruction or gangrene* Code: * Start Date: FriJun 22 00:00:00 EDT 2023 * End Date: * Text: * prison (current) use of insulin* Code: * Start Date: FriJun 22 00:00:00 EDT 2023 * End Date: * Text: * Atherosclerosis of [place] arteries of right leg with ulceration of other part of foot* Code: * Start Date: FriJun 22 00:00:00 EDT 2023 * End Date: * Text: * Type 2 diabetes mellitus with diabetic peripheral angiopathy without gangrene * Code: * Start Date: FriJun 22 00:00:00 EDT 2023 * End Date: * Text: * Non-pressure chronic ulcer of other part of right foot limited to breakdown of skin* Code: * Start Date: FriJun 22 00:00:00 EDT 2023 * End Date: * Text: * Altered mental status, unspecified* Code: * Start Date: FriJun 22 00:00:00 EDT 2023 * End Date: * Text: * Extended spectrum beta lactamase (ESBL) resistance* Code: * Start Date: FriJun 22 00:00:00 EDT 2023 * End Date: * Text: * (Idiopathic) normal pressure hydrocephalus* Code: * Start Date: FriJun 22 00:00:00 EDT 2023 * End Date: * Text: * Pressure ulcer of right buttock, stage 3* Code: * Start Date: FriJun 22 00:00:00 EDT 2023 * End Date: * Text: * Anemia, unspecified* Code: * Start Date: FriJun 22 00:00:00 EDT 2023 * End Date: * Text: Vital Signs Vital Sign Measurement Date Systolic Blood Pressure 135.00 mm[Hg] FriJuly 28 10:20:25 EDT 2023 Diastolic Blood Pressure 61.00 mm[Hg] FriJuly 28 10:20:25 EDT 2023 Heart Rate 83.00 /min FriJuly 28 10:20 :25 EDT 2023 Body temperature 97.80 [degF] FriJuly 28 10:2 0:25 EDT 2023 Respiratory rate 18.00 /min FriJuly 28 10:2 0:25 EDT 2023 Systolic Blood Pressure 135.00 mm[Hg] FriJuly 28 09:02:14 EDT 2023 Diastolic Blood Pressure 61.00 mm[Hg] FriJuly 28 09:02:14 EDT 2023 Heart Rate 83.00 /min FriJuly 28 09:02 :14 EDT 2023 Systolic Blood Pressure 127.00 mm[Hg] FriJuly 27 19:37:21 EDT 2023 Diastolic Blood Pressure 71.00 mm[Hg] FriJuly 27 19:37:21 EDT 2023 Heart Rate 81.00 /min FriJuly 27 19:37 :21 EDT 2023 Body temperature 97.80 [degF] FriJuly 27 19:3 7:21 EDT 2023 Respiratory rate 18.00 /min FriJuly 27 19:3 7:21 EDT 2023 Body weight 207.00 [lb_av] FriJuly 27 14:29 :49 EDT 2023 Systolic Blood Pressure 140.00 mm[Hg] FriJuly 27 09:29:37 EDT 2023 Diastolic Blood Pressure 59.00 mm[Hg] FriJuly 27 09:29:37 EDT 2023 Systolic Blood Pressure 140.00 mm[Hg] FriJuly 27 09:29:37 EDT 2023 Diastolic Blood Pressure 59.00 mm[Hg] FriJuly 27 09:29:37 EDT 2023 Heart Rate 66.00 /min FriJuly 27 09:29 :37 EDT 2023 Heart Rate 66.00 /min FriJuly 27 09:29 :37 EDT 2023 Body temperature 97.70 [degF] FriJuly 27 09:2 9:37 EDT 2023 Respiratory rate 20.00 /min FriJuly 27 09:2 9:37 EDT 2023 Systolic Blood Pressure 126.00 mm[Hg] FriJuly 26 22:08:12 EDT 2023 Diastolic Blood Pressure 70.00 mm[Hg] FriJuly 26 22:08:12 EDT 2023 Heart Rate 89.00 /min FriJuly 26 22:08 :12 EDT 2023 Body temperature 98.00 [degF] FriJuly 26 22:0 8:12 EDT 2023 Respiratory rate 20.00 /min FriJuly 26 22:0 8:12 EDT 2023 Body weight 208.60 [lb_av] FriJuly 26 17:41 :39 EDT 2023 Body weight 206.00 [lb_av] FriJuly 26 14:14 :45 EDT 2023 Systolic Blood Pressure 126.00 mm[Hg] FriJuly 26 09:58:07 EDT 2023 Diastolic Blood Pressure 80.00 mm[Hg] FriJuly 26 09:58:07 EDT 2023 Heart Rate 68.00 /min FriJuly 26 09:58 :07 EDT 2023 Body temperature 96.70 [degF] FriJuly 26 09:5 8:07 EDT 2023 Respiratory rate 20.00 /min FriJuly 26 09:5 8:07 EDT 2023 Systolic Blood Pressure 126.00 mm[Hg] FriJuly 26 09:56:20 EDT 2023 Diastolic Blood Pressure 80.00 mm[Hg] FriJuly 26 09:56:20 EDT 2023 Heart Rate 68.00 /min FriJuly 26 09:56 :20 EDT 2023 Systolic Blood Pressure 132.00 mm[Hg] FriJuly 26 00:17:50 EDT 2023 Diastolic Blood Pressure 90.00 mm[Hg] FriJuly 26 00:17:50 EDT 2023 Heart Rate 103.00 /min FriJuly 26 00:17 :50 EDT 2023 Body temperature 97.60 [degF] FriJuly 26 00:1 7:50 EDT 2023 Respiratory rate 20.00 /min FriJuly 26 00:1 7:50 EDT 2023 Body weight 206.80 [lb_av] FriJuly 25 12:49 :09 EDT 2023 Body weight 207.00 [lb_av] FriJuly 25 12:03 :03 EDT 2023 Systolic Blood Pressure 146.00 mm[Hg] FriJuly 25 12:02:48 EDT 2023 Diastolic Blood Pressure 67.00 mm[Hg] FriJuly 25 12:02:48 EDT 2023 Heart Rate 95.00 /min FriJuly 25 12:02 :48 EDT 2023 Body temperature 97.60 [degF] FriJuly 25 12:0 2:48 EDT 2023 Respiratory rate 20.00 /min FriJuly 25 12:0 2:48 EDT 2023 Systolic Blood Pressure 146.00 mm[Hg] FriJuly 25 09:33:33 EDT 2023 Diastolic Blood Pressure 67.00 mm[Hg] FriJuly 25 09:33:33 EDT 2023 Heart Rate 95.00 /min FriJuly 25 09:33 :33 EDT 2023 Systolic Blood Pressure 121.00 mm[Hg] FriJuly 25 02:39:14 EDT 2023 Diastolic Blood Pressure 72.00 mm[Hg] FriJuly 25 02:39:14 EDT 2023 Body temperature 98.00 [degF] FriJuly 25 02:3 9:14 EDT 2023 Respiratory rate 18.00 /min FriJuly 25 02:3 9:14 EDT 2023 Heart Rate 82.00 /min FriJuly 25 02:39 :14 EDT 2023 Body weight 207.20 [lb_av] FriJuly 24 11:27 :12 EDT 2023 Systolic Blood Pressure 152.00 mm[Hg] FriJuly 24 11:27:00 EDT 2023 Diastolic Blood Pressure 70.00 mm[Hg] FriJuly 24 11:27:00 EDT 2023 Heart Rate 76.00 /min FriJuly 24 11:27 :00 EDT 2023 Body temperature 98.20 [degF] FriJuly 24 11:2 7:00 EDT 2023 Respiratory rate 18.00 /min FriJuly 24 11:2 7:00 EDT 2023 Systolic Blood Pressure 129.00 mm[Hg] FriJuly 24 09:42:07 EDT 2023 Diastolic Blood Pressure 76.00 mm[Hg] FriJuly 24 09:42:07 EDT 2023 Heart Rate 76.00 /min FriJuly 24 09:42 :07 EDT 2023 Systolic Blood Pressure 148.00 mm[Hg] FriJuly 24 00:41:41 EDT 2023 Diastolic Blood Pressure 81.00 mm[Hg] FriJuly 24 00:41:41 EDT 2023 Heart Rate 99.00 /min FriJuly 24 00:41 :41 EDT 2023 Body temperature 98.90 [degF] FriJuly 24 00:4 1:41 EDT 2023 Respiratory rate 18.00 /min FriJuly 24 00:4 1:41 EDT 2023 Body weight 208.20 [lb_av] FriJuly 23 16:15 :17 EDT 2023 Systolic Blood Pressure 144.00 mm[Hg] FriJuly 23 11:57:09 EDT 2023 Diastolic Blood Pressure 64.00 mm[Hg] FriJuly 23 11:57:09 EDT 2023 Heart Rate 60.00 /min FriJuly 23 11:57 :09 EDT 2023 Body temperature 98.00 [degF] FriJuly 23 11:5 7:09 EDT 2023 Respiratory rate 18.00 /min FriJuly 23 11:5 7:09 EDT 2023 Systolic Blood Pressure 144.00 mm[Hg] FriJuly 23 10:13:38 EDT 2023 Diastolic Blood Pressure 69.00 mm[Hg] FriJuly 23 10:13:38 EDT 2023 Heart Rate 70.00 /min FriJuly 23 10:13 :38 EDT 2023 Systolic Blood Pressure 133.00 mm[Hg] FriJuly 22 21:47:08 EDT 2023 Diastolic Blood Pressure 91.00 mm[Hg] FriJuly 22 21:47:08 EDT 2023 Heart Rate 79.00 /min FriJuly 22 21:47 :08 EDT 2023 Body temperature 97.70 [degF] FriJuly 22 21:4 7:08 EDT 2023 Respiratory rate 18.00 /min FriJuly 22 21:4 7:08 EDT 2023 Body weight 211.60 [lb_av] FriJuly 22 10:08 :32 EDT 2023 Systolic Blood Pressure 167.00 mm[Hg] FriJuly 22 08:52:08 EDT 2023 Diastolic Blood Pressure 70.00 mm[Hg] FriJuly 22 08:52:08 EDT 2023 Heart Rate 96.00 /min FriJuly 22 08:52 :08 EDT 2023 Body temperature 97.90 [degF] FriJuly 22 08:5 2:08 EDT 2023 Respiratory rate 18.00 /min FriJuly 22 08:5 2:08 EDT 2023 Systolic Blood Pressure 142.00 mm[Hg] FriJuly 22 08:51:30 EDT 2023 Diastolic Blood Pressure 78.00 mm[Hg] FriJuly 22 08:51:30 EDT 2023 Heart Rate 86.00 /min FriJuly 22 08:51 :30 EDT 2023 Systolic Blood Pressure 142.00 mm[Hg] FriJuly 22 02:03:42 EDT 2023 Diastolic Blood Pressure 78.00 mm[Hg] FriJuly 22 02:03:42 EDT 2023 Heart Rate 86.00 /min FriJuly 22 02:03 :42 EDT 2023 Body temperature 98.20 [degF] FriJuly 22 02:0 3:42 EDT 2023 Respiratory rate 18.00 /min FriJuly 22 02:0 3:42 EDT 2023 Body weight 210.00 [lb_av] FriJuly 21 16:22 :33 EDT 2023 Systolic Blood Pressure 142.00 mm[Hg] FriJuly 21 11:09:26 EDT 2023 Diastolic Blood Pressure 59.00 mm[Hg] FriJuly 21 11:09:26 EDT 2023 Heart Rate 79.00 /min FriJuly 21 11:09 :26 EDT 2023 Body temperature 97.80 [degF] FriJuly 21 11:0 9:26 EDT 2023 Respiratory rate 20.00 /min FriJuly 21 11:0 9:26 EDT 2023 Systolic Blood Pressure 142.00 mm[Hg] FriJuly 21 09:35:56 EDT 2023 Diastolic Blood Pressure 59.00 mm[Hg] FriJuly 21 09:35:56 EDT 2023 Heart Rate 79.00 /min FriJuly 21 09:35 :56 EDT 2023 Systolic Blood Pressure 133.00 mm[Hg] FriJuly 20 22:00:21 EDT 2023 Diastolic Blood Pressure 62.00 mm[Hg] FriJuly 20 22:00:21 EDT 2023 Heart Rate 73.00 /min FriJuly 20 22:00 :21 EDT 2023 Body temperature 98.30 [degF] FriJuly 20 22:0 0:21 EDT 2023 Respiratory rate 18.00 /min FriJuly 20 22:0 0:21 EDT 2023 Systolic Blood Pressure 141.00 mm[Hg] FriJuly 20 14:03:09 EDT 2023 Diastolic Blood Pressure 70.00 mm[Hg] FriJuly 20 14:03:09 EDT 2023 Heart Rate 78.00 /min FriJuly 20 14:03 :09 EDT 2023 Body temperature 97.60 [degF] FriJuly 20 14:0 3:09 EDT 2023 Respiratory rate 20.00 /min FriJuly 20 14:0 3:09 EDT 2023 Body weight 210.40 [lb_av] FriJuly 20 13:02 :46 EDT 2023 Reason for Referral Past Medical History Resolved Concerns * Problem Peripheral vascular disease, unspecified* Code: * Start Date: FriJun 22 00:00:00 EDT 2023 * End Date: FriJun 24 00:00:00 EDT 2023 * Problem Non-pressure chronic ulcer of other part of right foot with unspecified severity* Code: * Start Date: FriJun 22 00:00:00 EDT 2023 * End Date: FriJun 24 00:00:00 EDT 2023
[2024-07-20 10:36] LABS: Basophils Absolute Auto 0.1 K/mm3 (0.0-0.1); Eosinophils Absolute Auto 0.2 K/mm3 (0-0.3); Eosinophils Percent Auto 2.5 % (0-4.4); Hematocrit 41.7 % (37.0-47.0); Hemoglobin 13.2 g/dL (12.0-15.0); Immature Granulocyte Absolute 0.02 K/mm3 (0.00-0.031); Immature Granulocyte Percent A 0.3 % (0-0.5); Lymphocytes Absolute Auto 1.73 K/mm3 (0.9-3.2); Lymphocytes Percent Auto 27.4 % (18.3-44.2); Mean Corpuscular HGB Conc 31.7 g/dl (32-36); Mean Corpuscular Hemoglobin 28.1 pg (26-34); Mean Corpuscular Volume 88.9 fl (80-100); Mean Platelet Volume 11.4 fl (7.4-10.4); Monocytes Absolute Auto 0.6 K/mm3 (0.1-0.6); Neutrophils Absolute Auto 3.7 K/mm3 (1.3-6.7); Neutrophils Percent Auto 58.8 % (45.5-73.1); Platelet Count Result 321 k/mm3 (150-375); Red Blood Count 4.69 M/mm3 (4.2-5.4); Red Cell Distribution Width 14.5 % (11.5-14.5); White Blood Count 6.3 K/mm3 (4.5-10.0)
[2024-07-20 10:47] LABS: Alanine Aminotransferase 13 U/L (6-35); Albumin Level 3.9 g/dL (3.5-5.1); Alkaline Phosphatase 67 U/L (38-126); Anion Gap 9 mmol/L (4-12); Aspartate Amino Transferase 30 U/L (14-36); Bilirubin,Total 0.5 mg/dL (0.2-1.3); Blood Urea Nitrogen 13 mg/dL (7-17); Calcium 9.5 mg/dL (8.4-10.2); Carbon Dioxide 28 mmol/L (22-30); Chloride 105 mmol/L (98-107); Cholesterol 248 mg/dL (0-200); Estimated Glomerular Filt Rate 56; Glucose 105 mg/dL (65-110); HDL Direct 42 mg/dL; Magnesium 1.8 mg/dL (1.6-2.3); Sodium 142 mmol/L (137-145); Triglycerides 168 mg/dL (<150)
[2024-07-20 10:49] LABS: Hemoglobin A1C 5.5 % (<5.7)
[2024-07-20 10:59] LABS: LDL Cholesterol Direct 145 mg/dL
[2024-07-20 11:04] LABS: Free T4 Free Thyroxine 2.01 ng/dL (0.78-2.19)
[2024-07-20 11:18] LABS: Thyroid Stimulating Hormone 0.939 uIU/mL (0.465-4.680)
== END 2024-07-20 09:55 | disposition home or self-care (01) ==
PROVIDERS: PCP Internal Medicine; Visit Provider Internal Medicine
DX: E78.5 Hyperlipidemia, unspecified (principal); E03.9 Hypothyroidism, unspecified; E11.9 Type 2 diabetes mellitus without complications; I10 Essential (primary) hypertension; Z79.899 Other long term (current) drug therapy
CPT/HCPCS: 36415; 80053; 80061; 83036; 83735; 84439; 84443; 85025

== ENCOUNTER 2024-09-07 15:17 | Outpatient (CLI) | payer MEDICARE, SELFPAY ==
--- NOTE | ~2024-09-07 | XR_ITS ---
Right wrist Technique: PA, oblique, lateral, and ulnar deviation views were obtained. Clinical History: Pain Findings: No acute fracture or dislocation is seen. Osseous alignment is anatomic. Joint spaces are p reserved. Soft tissues are unremarkable. Impression: Unremarkable right wrist radiographs. Reviewed, dictated and finalized at location . Impression: Unremarkable right wrist radiographs.
--- NOTE | ~2024-09-07 | XR_ITS ---
Right elbow Technique: AP, oblique, and lateral views were obtained. Clinical History: Pain Findings: No acute fracture or dislocation is seen. Osseous alignment is anatomic. Joint spaces are p reserved. There is no displacement of the fat pads, and soft tissues are unremarkable. Impression: Unremarkable radiographs. Reviewed, dictated and finalized at location . Impression: Unremarkable radiographs.
--- OUTSIDE RECORDS SUMMARY | 2024-09-07 15:21 | XMS_ITS ---
Author Name Auto Generated, Auto Generated Organization [facility] Address [address] [place] [address] Phone [phone] Care Team Providers Care Department Mgr Name Role Phone Isreal Marquis Unavailable [phone] Scar Kay Unavailable [phone] Functional Status No Results Mental Status No Results Allergies and Intolerances Name Onset Date Reaction Severity Sulfa (Sulfonamide Antibiotics) (Allergy) Fri 17:29:00 EDT 2023 Influenza Virus Vaccines (Allergy) FriJun 22 17 :29:00 EDT 2023 Medications Medication Directions Start Date [...] FriJuly 08 16:35:00 EDT 2023July 28 01:00:00 EDT 2023 nitrofurantoin monohydrate/macrocrystals 100 mg capsule 1 capsule CAPSULE Oral 2 Times Daily for 5 Days Indication: UTI Sat Jul 04 07:00:00 EDT 2023July 09 06:59:00 ED2023 ALPRAZolam 0.25 mg tablet 1 TABLET TABLE T Oral PRN 3 Times Daily for 14 Days Indication: Agitation FriJun 25 12:00:00 EDT 2023July 09 11:59:00 EDT 2023 Jacob 7 gram-7 gram-1.5 gram oral powder packet 1 packet POWDER IN PACKET (EA) Oral 2 Times Daily Indication: Supplement FriJun 25 14:00:00 EDT 2023July 28 01:00:00 EDT 2023 acetaminophen 500 mg tablet 1 tablet TAB LET Oral Every 6 Hours Indication: Pain FriJun 24 11:15:00 EDT 2023July 28 01:00:00 ED2023 NovoLOG Flexpen U-100 Insulin aspart 100 unit/mL [...] 48 and 72 hours FriJun 23 13:00:00 2023Jul 07 12:59:00 2023 TubersoL 5 tub. 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
--- OUTSIDE RECORDS SUMMARY | 2024-09-07 15:21 | XMS_ITS ---
Author Name Auto Generated, Auto Generated Organization [facility] Address [address] [place] [address] Phone [phone] Care Team Providers Care Medical Massage Therapist Name Role Phone Isreal Marquis Unavailable [phone] Scar Kay Unavailable Functional Status No Results [...] 2023 * End Date: * Text: * intermediate frame tender (current) use of insulin* Code: * Start Date: FriJun 22 00:00:00 EDT 2023 * End Date: * Text: * Atherosclerosis of [place] arteries of right leg with ulceration of [...]
--- OUTSIDE RECORDS SUMMARY | 2024-09-07 15:21 | XMS_ITS | Patient Health Record ---
Author Organization [facility] Address [address] [address] Care Team Providers Care Inside Meter Tester Name Role Phone Racheal Avelar MD Primary Care Provider Unavail able Walter Sousa Unavailable [phone] Allergies Allergen (clinical drug ingredient) Drug/Non Drug Allergy documented on EMR Reaction Allergy Type Onset Date Status semaglutide OZEMPIC (uncoded) Stomach Upset Allergy Active sulfasalazine sulfaSALAzine Anaphylaxis Drug Allergy Active dulaglutide Trulicity Stomach Upset Drug Allergy A ctive Reason For Referral No Information Medications Medication SIG (Take, Route, Frequency, Duration) Notes Start Date End Date Status Meloxicam 15 MG 1 tab(s) orally once a day Unknown METFORMIN EXTENDED RELEASE 500 MG 1 TAB(S) ORALLY TID; Duration: 90 DAYS *Please review for potential replacement for e-prescription and drug interaction check* 12/29/2020 Unknown Benadryl Allergy 25 MG 1/2 tab orally QD Unknown Famotidine 20 MG 1 tab orally QD Unknown Metoprolol Succinate ER 100 MG 1 tab(s) orally once a day Active Allopurinol 300 MG 1 tab(s) orally Friday-Friday Unknown Pioglitazone HCl 15 MG 1 tab(s) orally once a day Active B-12 1000 MCG 1 tab(s) orally once a day; Duration: 30 day(s) Unknown Vitamin D3 50 MCG 1 TAB(S) ORALLY ONCE A DAY; Duration: 30 DAY(S) *Please review and pick correct strength-formulatio n from Medispan options. If intended option is not shown, discontinue and re-order from Quick Search* Unknown Pioglitazone HCl 30 MG 1 tab(s) orally once a day; Duration: 90 day(s) 01/04/2021 Unknown Synthroid 200 MCG 1 tab(s) orally 6 days weekly; Duration: 60 days 12/29/2020 Unknown Social History Tobacco Use: Social History Observation Description Date Details (start date - stop date) Former Smoker NA - NA TU Question Answer Notes Are you a smoker former smoker How long has it been since you last smoked? > 10 years Problems Problem Type SNOMED Code ICD Code Onset Dates Problem Status W/U Status Risk Notes Problem Hyperglycemia due to type 2 diabetes mellitus (223848931362806) Type 2 diabetes mellitus with hyperglycemia (E11.65) Active confirmed Problem Mixed hyperlipidemia (098131163) Mixed hyperlipidemia (E78.2) Active confirmed Problem Polyneuropathy due to type 2 diabetes mellitus (341088160) Type 2 diabetes mellitus with diabetic polyneuropathy (E11.42) Active confirmed Problem Essential hypertension (22199513) Essential (primary) hypertension (I10) Active confirmed Problem Morbid obesity (disorder) (586924605) Morbid (severe) obesity due to excess calories (E66.01) Active confirmed Problem Dietary management surveillance (355662674) Dietary counseling and surveillance (Z71.3) Active confirmed Problem Hypothyroidism following radioiodine therapy (63555574) 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) Active confirmed Problem Proteinuria (38207644) Proteinuria (R80.9) Active confirmed Plan Of Treatment Future Test Test Name Order Date TSH 02/09/2021 T4, FREE 02/09/2021 Insurance Providers Payer Name Payer Address Payer Phone Subscriber Number Group Number Insured Name Patient Relationship to Insured Coverage Start Date Coverage End Date [facility] [employer] [employer] PPO [address] [address] [place] [address] [phone] [id number] IRMA RACHEAL Self - patient is the insured Medical (General) History Medical History History ICD Code Diabetes Gout Heart murmur due to hole in heart HTN HLD Bilateral knee arthritis Hypothyroidism s/p HAYES ablation ~late s/early Surgical History Surgery Date(Month/Year) Gall Bladder Bladder Surgery Left and Right Carpal Neck Fusion Hospitalization History Reason Date(Month/Year) See surgical history
== END 2024-09-07 15:18 | disposition home or self-care (01) ==
PROVIDERS: PCP Internal Medicine; Visit Provider Internal Medicine
DX: M25.531 Pain in right wrist (principal)
CPT/HCPCS: 73080; 73110

== ENCOUNTER 2024-10-25 10:18 | Inpatient (IN) | payer MEDICARE, SELFPAY ==
[2024-10-25] VITALS (8 sets, daily range): BP systolic 152–182; BP diastolic 51–84; PULSE 58–68; RESP 14–25; TEMP 36.3–36.6; O2SAT 96–99; BMI 26.2
--- NOTE | ~2024-10-25 | CT_ITS ---
EXAM: CT brain wo con - 10/25/2024 10:45 CDT History: 79 years old Female with increase weakness, slurred speech COMPARISON: None available. PROCEDURE: CT of the head without contrast. Axial, sagittal and coronal reformatted planes were daria luated. Automatic exposure control was used for this study. FINDINGS: BRAIN PARENCHYMA: No acute hemorrhage. No mass effect or herniation. Dawson-white matter differentiatio n is maintained. Diffuse enlargement of all ventricles is again seen, likely related to diffuse paren chymal loss. Moderate chronic volume loss. Scattered hypodensities in subcortical and periventricular white matter, likely representing chronic microvascular ischemic changes in this age group. Atherosc lerotic calcification of the intracranial vessels is noted. VENTRICLES/ EXTRA-AXIAL SPACES: No hydrocephalus or extra-axial fluid collection. EXTRACRANIAL STRUCTURES: No calvarial fracture. IMPRESSION: No evidence for acute intracranial hemorrhage or calvarial fracture. Reviewed, dictated and finalized at location A.
--- NOTE | ~2024-10-25 | XR_ITS ---
EXAMINATION: XR chest 1V portable DATE: 10/25/2024 11:01 INDICATION: Slurred speech. Increased weakness. TECHNIQUE: frontal view of the chest was obtained. COMPARISON: Chest radiograph dated 10/27/2023 FINDINGS: Increased interstitial pattern in the bilateral lower lung zones. Costochondral calcifications projec ting over the bilateral lower lung zones. No pleural effusion or pneumothorax. Heart size normal. Ath erosclerotic aorta. Cholecystectomy clips in right upper quadrant. IMPRESSION: 1. Mild increased initial pattern at the bilateral lower lung zones which could represent mild pulmon almas edema, atelectasis or less likely pneumonia. Reviewed, dictated and finalized at location A. IMPRESSION: 1. Mild increased initial pattern at the bilateral lower lung zones which could represent mild pulmonary edema, atelectasis or less likely pneumonia.
--- NOTE | ~2024-10-25 | CT_ITS ---
EXAMINATION: CTA brain carotid DATE: 10/25/2024 11:56 CDT INDICATION: Weakness. Slurred speech TECHNIQUE: Computed tomographic angiography (CTA) of the head was performed with intravenous contrast . CTA of the neck was performed with intravenous contrast. The dose-length product was 918.48 mGy-cm. Maximum intensity projection and volume rendered 3D-reconstructions were created by the technologist on a separate workstation. COMPARISON: None. FINDINGS: HEAD CTA: Anterior cerebral arteries, middle cerebral arteries and posterior arteries are patent. Colby cified plaque in the cavernous portions of bilateral internal carotid arteries causing less than 50% stenosis. The remaining portions of the visualized internal carotid arteries are unremarkable. Basila r artery is unremarkable. Visualized vertebral arteries are unremarkable. Visualized venous sinuses a re grossly unremarkable. Visualized jugular veins are patent. Dental hardware with surrounding artifa ct. NECK CTA: Small groundglass opacities in the upper lungs. Visualized thoracic aorta is not aneurysmal. Small amount of plaque at the origin of the left common carotid artery causing less than 25% stenosis . Small amount of calcified plaque in the left common carotid artery causing less than 10% stenosis. Moderate amount of plaque in the left carotid bulb causing less than 30% stenosis of the left carotid bulb. There is calcified plaque in the proximal left internal carotid artery causing approximately 6 0-70% stenosis. Consider an ultrasound of the carotid arteries for further assessment. Small amount of plaque at the origin of the right common carotid artery causing less than 20% stenosi s. Small amount of plaque in the right common carotid artery causing less than 20% stenosis. Moderate amount of plaque in the right carotid bulb causing approximately 30% stenosis of the carotid bulb. T here is calcified plaque in the proximal right internal carotid artery causing approximately 50% sten osis. Consider an ultrasound the carotid arteries for further assessment. Moderate amount of calcified plaque at the origin the left vertebral artery. Small amount of plaque a t the origin of the right vertebral artery. Vertebral arteries are patent. Otherwise, the vertebral a rteries are grossly unremarkable. IMPRESSION: 1. Calcified plaque in the cavernous portions of bilateral internal carotid arteries causing less liang n 50% stenosis. Otherwise, grossly unremarkable CTA of the head. 2. There is calcified plaque in the proximal left internal carotid artery causing approximately 60-70 % stenosis. Consider an ultrasound of the carotid arteries for further assessment. 3. There is calcified plaque in the proximal right internal carotid artery causing approximately 50% stenosis. Consider an ultrasound the carotid arteries for further assessment. Findings as above. Reviewed, dictated and finalized at location A. IMPRESSION: 1. Calcified plaque in the cavernous portions of bilateral internal carotid art eries causing less than 50% stenosis. Otherwise, grossly unremarkable CTA of th e head. 2. There is calcified plaque in the proximal left internal carotid artery causi ng approximately 60-70% stenosis. Consider an ultrasound of the carotid arterie s for further assessment. 3. There is calcified plaque in the proximal right internal carotid artery caus ing approximately 50% stenosis. Consider an ultrasound the carotid arteries for further assessment. Findings as above.
--- NOTE | 2024-10-25 10:33 | ECG_ITS ---
Test Date: 2024-10-25 11:17:40 Measurements Intervals [place] Rate: 62 P: 5 HI: 160 QRS: -34 QRSD: 109 T: 65 QT: 472 QTc: 483 Interpretive Statements SINUS RHYTHM LEFT AXIS DEVIATION ANTEROSEPTAL INFARCT, AGE INDETERMINATE INFERIOR INFARCT, AGE INDETERMINATE BORDERLINE ST-T WAVE ABNORMALITY- HIGH LATERAL LEADS BASELINE ARTIFACT- I, II, AVR, AVL, AVF, V1-V6 ABNORMAL ECG Compared to ECG 10/27/2023 23:26:31 NO SIGNIFICANT CHANGE Electronically Signed On 10-25-2024 11:28:04 CDT by Antonio Lopez D.O.
[2024-10-25 10:52] LABS: Hematocrit 43.0 % (37.0-47.0); Hemoglobin 13.5 g/dL (12.0-15.0); Immature Granulocyte Percent A 0.1 % (0-0.5); Lymphocytes Absolute Auto 2.20 K/mm3 (0.9-3.2); Mean Corpuscular HGB Conc 31.4 g/dl (32-36); Mean Corpuscular Hemoglobin 27.1 pg (26-34); Mean Corpuscular Volume 86.2 fl (80-100); Nucleated Red Blood Cells Absolute Auto 0.000 K/mm3 (0.0-0.012); Nucleated Red Blood Cells Perc 0.0 % (0.0-0.2); Platelet Count Result 322 k/mm3 (150-375); Red Blood Count 4.99 M/mm3 (4.2-5.4); White Blood Count 6.7 K/mm3 (4.5-10.0)
[2024-10-25 11:03] LABS: INR 1.1; Prothrombin Time 13.8 Seconds (11.1-14.7)
[2024-10-25 11:04] LABS: Partial Thromboplastin Time 29.5 Seconds (22.3-36.8)
[2024-10-25 11:06] LABS: Alanine Aminotransferase 12 U/L (6-35); Albumin Level 3.7 g/dL (3.5-5.1); Alkaline Phosphatase 67 U/L (38-126); Anion Gap 8 mmol/L (4-12); Aspartate Amino Transferase 30 U/L (14-36); Bilirubin,Total 0.5 mg/dL (0.2-1.3); Blood Urea Nitrogen 12 mg/dL (7-17); Calcium 9.7 mg/dL (8.4-10.2); Carbon Dioxide 26 mmol/L (22-30); Chloride 106 mmol/L (98-107); Estimated Glomerular Filt Rate 49; Glucose 103 mg/dL (65-110); Potassium 4.2 mmol/L (3.4-5.0); Sodium 140 mmol/L (137-145); Total Protein 7.9 g/dL (6.3-8.2)
[2024-10-25 11:16] LABS: Troponin I 0.012 ng/mL (0.000-0.034)
--- NOTE | 2024-10-25 11:27 | ED_ITS ---
HPI - Weakness General Chief complaint: Weakness Stated complaint: code stroke Time Seen by Provider: 10/25/24 10:45 Source: patient, RN notes reviewed and old records reviewed Mode of arrival: EMS Limitations: dementia and other History of Present Illness HPI Narrative: This is a 79 year old female with history of hypertension, hyperlipidemia who presents for evaluation of weakness. Nursing reports that patient developed weakness of Friday. Patient states that she has been unable to walk for several weeks. She denies slurred speech. She denies headache, fall, nausea, vomiting, chest pain, abdominal pain. . Her career development specialist states that patient is usually able to transfer her self but she has been unable since Friday. EMS was called to house on Friday but patient declined to come to ER. They were able to convince patient to come to ER today due to slurred speech starting yesterday Related Data Home Medications ?Medication ?Instructions ?Recorded ?Confirmed ?Last Taken ?Type cholecalciferol (vitamin D3) 50 50 mcg PO DAILY 05/29/23 10/25/24 Unknown History mcg (2,000 unit) capsule Allergies Allergy/AdvReac Type Severity Reaction Status Date / Time Influenza Virus Vaccines Allergy Unknown Anaphylaxis Verified 07/27/24 10:41 Sulfa (Sulfonamide AdvReac Intermediate Rash Verified 07/27/24 10:41 Antibiotics) 1 GENERAL ANESTHISIA LAST Allergy Unknown Other Uncoded 07/27/24 10:41 2 SURGS [facility] Past Medical History Medical History (Updated 10/25/24 @ 17:00 by Hanna Conde MD) Dementia Cognitive dysfunction Stage 3a chronic kidney disease B12 deficiency Aortic stenosis Fall NPH (normal pressure hydrocephalus) Nausea and vomiting in adult Tachycardia Diastolic congestive heart failure Peripheral vascular disease Type 2 diabetes mellitus Degenerative joint disease Murmur, heart Vitamin D deficiency Hypothyroidism (acquired) Hyperlipidemia Essential hypertension PHYLICIA on CPAP Surgical History Surgical History History of bladder repair surgery For bladder prolapse. Family History Family History Mother Hypertension, Onset Age: 70 Cerebrovascular accident Patient's mother is Sibling Carcinoma of colon Other Family history of arthritis Family history of coronary artery disease Social History Social History Social History: Surrogate medical decision maker: Dago North, spouse. Code status: Full code. Smoking status: Former smoker Second hand tobacco smoke exposure: No Alcohol intake: never Substance use: never Substance use type: does not use Do You Feel Safe in your Home?: Yes Lack of Transportation: No Lack of Food: Never True Current Housing: I Have Housing Concerned About Future Housing: No Difficulty Paying Gas/Electric Bills: No Difficulty Paying for Meds: No Currently Unemployed: No Education: High School Diploma/GED Difficulty w/ Childcare or Family Care: No Additional living arrangements comments: Lives with spouse in [place]. Spiritual care concerns: No Exam 2 Const: General: no acute distress Limitations: no limitations Other: oriented to person place month, year HENMT: Head: normal to inspection Ears: external ears normal F yanet/Nose/Sinus: Normal external nose present Eyes: Pupils: Equal, round and reactive pupils present EOM: EOMs intact bilaterally Chest: Chest palpation & inspection: normal inspection of the chest Resp: Effort & Inspection: normal respiratory effort Auscultation: clear to auscultation bilaterally Cardio: Rate: regular rate Rhythm: regular rhythm Heart sounds: Murmur heart sound present GI: GI Palp: Yes Soft to palpation, No Tenderness to palpation present (GI), No Guarding due to palpation present (GI) and No Rigid due to palpation A uscultation: normal bowel sounds Neuro: General: patient oriented x3, moves all extremities, no focal motor deficits and CN's II-XI intact bilaterally Speech: Abnormal speech present slurred Extrem: General: no pedal edema Psych: Mental Status: mental status grossly normal Affect: normal affect Attitude: cooperative Course Vital Signs Vital signs: Vital Signs Temperature 98 F 10/25/24 10:17 Pulse Rate 58 L 10/25/24 10:17 Respiratory Rate 16 10/25/24 10:17 Blood Pressure 175/63 H 10/25/24 10:17 Pulse Oximetry 98 10/25/24 10:17 Oxygen Delivery Room Air 10/25/24 10:17 Temperature 98 F 10/25/24 10:17 Pulse Rate 68 10/25/24 15:23 Respiratory Rate 20 10/25/24 15:23 Blood Pressure 158/59 H 10/25/24 15:23 Pulse Oximetry 97 10/25/24 15:23 Oxygen Delivery Room Air 10/25/24 10:17 MDM - Weakness MDM Narrative Medical decision making narrative: PAtient presents with worsening weakness since Friday. She is not candidate for thrombolytic therapy given unknown last night well. No focal deficits found but she does have some slurred speech. CT brain , EKG, chest xray and labs ordered for CVA evaluation. CT brain negative for hydrocephalus. She was found to have UTI. She will be started n antibiotics. Neuro was consulted. Patient lives at home with caregivers. I Discussed with patient that she needs to be admitted. Differential Diagnosis Differential diagnosis: Likely anemia, hypothyroidism, dehydration and other (UTI, normal pressure hydrocephalus, CVA) Medical Records Attestation: I reviewed the patient's medical records. Lab Data Attestation: I reviewed the patient's lab results. 10/25/24 10:44 10/25/24 10:44 Labs: Lab Results 10/25/24 10/25/24 10/25/24 Range/Units 10:44 11:25 11:37 WBC 6.7 (4.5-10.0) K/mm3 RBC 4.99 (4.2-5.4) M/mm3 Hgb 13.5 (12.0-15.0) g/dL Hct 43.0 (37.0-47.0) % MCV 86.2 (80-100) fl MCH 27.1 (26-34) pg MCHC 31.4 L (32-36) g/dl RDW 15.2 H (11.5-14.5) % Plt Count 322 (150-375) k/mm3 MPV 11.1 H (7.4-10.4) fl Immature Gran % (Auto) 0.1 (0-0.5) % Neut % (Auto) 55.5 (45.5-73.1) % Lymph % (Auto) 32.9 (18.3-44.2) % [place] % (Auto) 8.4 (2.6-8.5) % Eos % (Auto) 2.2 (0-4.4) % Baso % (Auto) 0.9 (0.2-1.2) % Lymph # (Auto) 2.20 (0.9-3.2) K/mm3 [place] # (Auto) 0.6 (0.1-0.6) K/mm3 Eos # (Auto) 0.2 (0-0.3) K/mm3 Baso # (Auto) 0.1 (0.0-0.1) K/mm3 Abs Immat Gran (auto) 0.01 (0.00-0.031) K/mm3 Absolute Neuts (auto) 3.7 (1.3-6.7) K/mm3 Absolute Nucleated RBC 0.000 (0.0-0.012) K/mm3 Nucleated RBC % 0.0 (0.0-0.2) % PT 13.8 (11.1-14.7) Seconds INR 1.1 APTT 29.5 (22.3-36.8) Seconds Sodium 140 (137-145) mmol/L Potassium 4.2 (3.4-5.0) mmol/L Chloride 106 (98-107) mmol/L Carbon Dioxide 26 (22-30) mmol/L Anion Gap 8 (4-12) mmol/L BUN 12 (7-17) mg/dL Creatinine 1.08 H (0.7-1.0) mg/dL Estim Creat Clear Calc Not Reportable Estimated GFR 49 L (59 - ) Glucose 103 (65-110) mg/dL POC Capillary Glucose 88 (65-105) mg/dl Calcium 9.7 (8.4-10.2) mg/dL Total Bilirubin 0.5 (0.2-1.3) mg/dL AST 30 (14-36) U/L ALT 12 (6-35) U/L Alkaline Phosphatase 67 (38-126) U/L Troponin I 0.012 (0.000-0.034) ng/mL Total Protein 7.9 (6.3-8.2) g/dL Albumin 3.7 (3.5-5.1) g/dL Urine Color Yellow (Yellow) Urine Appearance Turbid H (Clear) Urine pH 6.5 (5.0-9.0) Ur Specific [place] 1.012 (1.001-1.035) Urine Protein Trace (Negative) mg/dL Urine Glucose (UA) Negative (Negative) mg/dL Urine Ketones Negative (Negative) mg/dL Ur Blood (Man) 1+ H (Negative) Urine Nitrate Positive H (Negative) Urine Bilirubin Negative (Negative) Urine Urobilinogen 0.2 (<2.0) mg/dL Add Ur Microanalysis Reviewed Leukocyte Esterase Rfl 3+ H (Negative) CARLOS EDUARDO/UL Urine RBC 0-2 (0-2) /hpf Urine WBC >100 H (0-3) /hpf Ur Squamous Epith Cells Many H (Few) /hpf Urine Bacteria 4+ H /hpf Urine Casts 0-2 Imaging Data Radiologist's impression: ITS Impressions Head CT 10/25/24 11:02 IMPRESSION: No evidence for acute intracranial hemorrhage or calvarial fracture. Chest X-Ray 10/25/24 11:03 IMPRESSION: 1. Mild increased initial pattern at the bilateral lower lung zones which could represent mild pulmonary edema, atelectasis or less likely pneumonia. Head/Neck CTA 10/25/24 11:55 IMPRESSION: 1. Calcified plaque in the cavernous portions of bilateral internal carotid arteries causing less than 50% stenosis. Otherwise, grossly unremarkable CTA of the head. 2. There is calcified plaque in the proximal left internal carotid artery causing approximately 60-70% stenosis. Consider an ultrasound of the carotid arteries for further assessment. 3. There is calcified plaque in the proximal right internal carotid artery causing approximately 50% stenosis. Consider an ultrasound the carotid arteries for further assessment. Findings as above. ECG Data EKG #1: Attestation: I personally reviewed and interpreted this ECG as follows: ECG completion date: 10/25/24 ECG completion time: 11:17 EKG Interpretation: normal rate (62), sinus rhythm, non-specific ST changes and left axis Discharge Plan Discharge Clinical Impression: Generalized weakness, Slurred speech UTI (urinary tract infection) Qualifiers: Encounter type: initial encounter Patient Disposition: Still a Patient Condition: Stable Quality Stroke Date of last known normal: 10/22/24 Time of last known normal: 11:31 Stroke Scale Stroke Scale 1: Stroke scale date:: 10/25/24 Stroke scale time:: 11:31 1a Level of consciousness: alert-0 1b Level of consciousness questions: answers both correctly-0 1c Level of consciousness commands: obeys both correctly-0 2 Best gaze: normal-0 3 Visual: no visual loss-0 4 Facial palsy: normal-0 5a Motor: left arm: drift-1 5b Motor: right arm: drift-1 6a Motor: left leg: some effort/gravity-2 6b Motor: right leg: some effort/gravity-2 7 Limb ataxia: absent-0 8 Sensory: normal-0 9 Best language: no aphasia-0 10 Dysarthria: slurs some words-1 11 Extinction and inattention: no abnormality-0 Level:: 7
[2024-10-25 11:58] LABS: Add Urine Microscopic? YES; Appearance Urine Turbid (Clear); Glucose Urine UA Negative (Negative); Leukocyte Esterase Ur 3+ LEU/UL (Negative); Need Manual Microscopic Reviewed; Nitrate Urine Positive (Negative); Non Pathogenic Casts 0-2; Specific Grav Ur 1.012 (1.001-1.035)
--- OUTSIDE RECORDS SUMMARY | 2024-10-25 12:53 | XMS_ITS ---
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
--- OUTSIDE RECORDS SUMMARY | 2024-10-25 12:53 | XMS_ITS ---
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
--- NOTE | 2024-10-25 13:21 | PC.NURSE ---
Pt trying ice chips. Law Professor states that pt has had an increase in difficulty swallowing.
[2024-10-25] MEDS: cefTRIAXone 1 GM in SODIUM CHLORIDE 0.9% IV 50 ML 100 ML IVPB (14:50)
--- NOTE | 2024-10-25 15:10 | P.HP_ITS ---
H&P: HPI History of Present Illness Date/Time: 10/25/24 15:10 Chief Complaint: Weakness, Slurred Speech Narrative: 79 y/o F with PMH of dementia, CKD, diastolic CHF, PVD, DM2, aortic stenosis, hypothyroidism, HLD, HTN, and PHYLICIA on CPAP presents here with generalized weakness and slurred speech. The patient presents here from home via EMS for further evaluation of generalized weakness and slurred speech. Patient reports the generalized weakness has been ongoing for the past 1-2 weeks. Denies associated focal weakness, focal numbness, vision changes, headache, changes in speech or trouble swallowing. Additionally denies nausea, vomiting, abdominal pain, dysuria, hematuria, urinary frequency, shortness of breath, cough, or chest pain. +Dizziness that is intermittent, unsure if it correlates with position changes. +Diarrhea - has been ongoing for months. Patient's caregiver reports noting new slurred speech starting yesterday, however patient feels her speech is at her baseline. Patient's caregiver also reported to EMS that the patient has been having difficulty with transferring that is new for her since Friday - however patient denies and states she gets excited about things and denies any d ifficulty with transfers. Initial VS at presentation: 98? F, HR 58, R 16, 175/63, and 98% on RA. ED workup showed: No leukocytosis, no anemia, normal coags, no significant electrolyte derangements, creatinine 1.08 and GFR 49, initial troponin negative, UA suggestive of UTI however has many epithelial cells. Head CT showed no evidence of acute findings. CXR showed mild increase in her social pattern at the bilateral lower lung zones which could represent mild pulmonary edema, atelectasis, or less likely pneumonia. CTA showed a calcified plaque in the cavernous portions of the bilateral internal carotids causing less than 50% stenosis, 60-70% stenosis of the left ICA and 50% stenosis of the right ICA. Review of Systems Review of Systems: All systems reviewed & are unremarkable except as noted in HPI and below [facility] Past Medical History Medical History Dementia Cognitive dysfunction Stage 3a chronic kidney disease B12 deficiency Aortic stenosis Fall NPH (normal pressure hydrocephalus) Nausea and vomiting in adult Tachycardia Diastolic congestive heart failure Peripheral vascular disease Type 2 diabetes mellitus Degenerative joint disease Murmur, heart Vitamin D deficiency Hypothyroidism (acquired) Hyperlipidemia Essential hypertension PHYLICIA on CPAP Surgical History Surgical History History of bladder repair surgery For bladder prolapse. Family History Family History Mother Hypertension, Onset Age: 70 Cerebrovascular accident Patient's mother is Sibling Carcinoma of colon Other Family history of arthritis Family history of coronary artery disease Social History Social History Social History: Surrogate medical decision maker: Dago North, spouse. Code status: Full code. Smoking status: Former smoker Second hand tobacco smoke exposure: No Alcohol intake: never Substance use: never Substance use type: does not use Do You Feel Safe in your Home?: Yes Lack of Transportation: No Lack of Food: Never True Current Housing: I Have Housing Concerned About Future Housing: No Difficulty Paying Gas/Electric Bills: No Difficulty Paying for Meds: No Currently Unemployed: No Education: High School Diploma/GED Difficulty w/ Childcare or Family Care: No Additional living arrangements comments: Lives with spouse in [place]. Spiritual care concerns: No Meds Home Medications and Allergies Home Medications ?Medication ?Instructions ?Recorded ?Confirmed ?Type cholecalciferol (vitamin D3) 50 50 mcg PO DAILY 05/29/23 10/25/24 History mcg (2,000 unit) capsule cyanocobalamin (vitamin B-12) 1,000 mcg PO QAM #30 tabs 11/05/23 10/25/24 Rx 1,000 mcg tablet (Vitamin B-12) donepezil 5 mg tablet (Aricept) 5 mg PO HS #90 tabs 09/16/24 10/25/24 Rx levothyroxine 125 mcg tablet 125 mcg PO DAILY@0630 #90 tabs 09/16/24 10/25/24 Rx (Synthroid) Allergies Allergy/AdvReac Type Severity Reaction Status Date / Time Influenza Virus Vaccines Allergy Unknown Anaphylaxis Verified 10/25/24 18:14 Sulfa (Sulfonamide AdvReac Intermediate Rash Verified 10/25/24 18:14 Antibiotics) 1 GENERAL ANESTHISIA LAST Allergy Unknown Other Uncoded 10/25/24 18:14 2 SURGS Vital Signs Vital Signs - 24 hr 10/25/24 10:17 10/25/24 10:28 10/25/24 11:57 Temperature 98 F Pulse Rate 58 L 61 59 L Respiratory Rate 16 14 16 Blood Pressure 175/63 H 175/63 H 168/58 H Pulse Oximetry 98 98 99 Oxygen Delivery Room Air 10/25/24 13:16 10/25/24 14:54 Temperature Pulse Rate 66 64 Respiratory Rate 25 H 22 H Blood Pressure 174/84 H 152/70 H Pulse Oximetry 98 98 Oxygen Delivery Exam Narrative: LLE trace weakness. some slow speech jailene. Const: General: comfortable and no acute distress Other: , female, elderly, chronically ill-appearing HENMT: Face/Nose/Sinus: Normal nares present Mouth: Yes moist mucous membranes Eyes: General: appearance normal, both eyes and all related structures Sclera: sclerae normal Pupils: Equal, round and reactive pupils present EOM: EOMs intact bilaterally Resp: Effort & Inspection: normal respiratory effort Auscultation: clear to auscultation bilaterally Cardio: Rate: regular rate Rhythm: regular rhythm Other: S1-S2 present without murmur, rub, ectopy GI: Other: Abdomen soft, nondistended, nontender. Normoactive bowel sounds in all quadrants. Skin: General skin exam: normal color and no rashes or lesions noted Wounds: no wounds Neuro: Other: Patient has a slow speech jailene, slurring not appreciated. Patient reports this is her baseline. No sensory deficits. Plus five in bilateral upper extremities and the right lower extremity. Trace weakness in the left lower extremity which she reports is her baseline. A&O x3 Extrem: General: normal to inspection Psych: Mental Status: mental status grossly normal Affect: normal affect Other: Fair insight and judgment, pleasant H&P: Results Labs Labs: Short CBC 10/25/24 Range/Units 10:44 WBC 6.7 (4.5-10.0) K/mm3 Hgb 13.5 (12.0-15.0) g/dL Hct 43.0 (37.0-47.0) % Plt Count 322 (150-375) k/mm3 BMP 10/25/24 10:44 Sodium 140 Potassium 4.2 Chloride 106 Carbon Dioxide 26 BUN 12 Creatinine 1.08 H Glucose 103 Calcium 9.7 Cardiac Enzymes 10/25/24 Range/Units 10:44 Troponin I 0.012 (0.000-0.034) ng/mL Liver Function 10/25/24 Range/Units 10:44 Total Bilirubin 0.5 (0.2-1.3) mg/dL AST 30 (14-36) U/L ALT 12 (6-35) U/L Alkaline Phosphatase 67 (38-126) U/L Albumin 3.7 (3.5-5.1) g/dL Urine 10/25/24 Range/Units 11:37 Urine Color Yellow (Yellow) Urine Appearance Turbid H (Clear) Urine pH 6.5 (5.0-9.0) Ur Specific [place] 1.012 (1.001-1.035) Urine Protein Trace (Negative) mg/dL Urine Glucose (UA) Negative (Negative) mg/dL Assessment and Plan Assessment and plan (1) UTI (urinary tract infection): Qualifiers: Hematuria presence: without hematuria Urinary tract infection type: site unspecified Qualified Code(s): N39.0 - Urinary tract infection, site not specified Code(s): N39.0 - Urinary tract infection, site not specified Status: Resolved Assessment and Plan: - UA: Turbid, 1+ blood, positive nitrates, 3+ leuk esterase, greater than 100 WBC, 4+ bacteria and many epithelial cells. Infection versus contamination, given worsening weakness presumed infectious. - UC pending - previous micro reviewed Proteus mirabilis with moderate amount of resistances in October of 2023 ESBL in July 01, May 31 and April 02 - started on Ceftriaxone in the ED, transitioned to Meropenem due to ESBL hx (2) Generalized weakness: Code(s): R53.1 - Weakness Status: Acute Assessment and Plan: Worsening generalized weakness over the last 1-2 weeks. UA suspicious for UTI, see above. Some concern for slurred speech, however patient denies and not well appreciated on exam. Does have a slow speech jailene. Trace left lower extremity weakness also noted, however patient reports this is her baseline. Patient additionally has a past medical history significant for normal pressure hydrocephalus. - Head CT: No evidence for acute intracranial hemorrhage or calvarial fracture. - Head/neck CTA: 1. Calcified plaque in the cavernous portions of bilateral internal carotid arteries causing less than 50% stenosis. Otherwise, grossly unremarkable CTA of the head. 2. There is calcified plaque in the proximal left internal carotid artery causing approximately 60-70% stenosis. Consider an ultrasound of the carotid arteries for further assessment. 3. There is calcified plaque in the proximal right internal carotid artery causing approximately 50% stenosis. Consider an ultrasound the carotid arteries for further assessment. - neuro consulted - PT/OT eval and treat (3) Chronic kidney disease, stage 3: Code(s): N18.30 - Chronic kidney disease, stage 3 unspecified Status: Chronic Assessment and Plan: - creatinine 1.08, BUN 12, GFR 49 upon admission - baseline creatinine: 0.9-1.2, has fluctuated significantly over the last year - trend renal function - trend electrolytes, correct as needed (4) Essential hypertension: Code(s): I10 - Essential (primary) hypertension Status: Acute Assessment and Plan: - chronic, currently 158/59 - not currently on a daily antihypertensive - monitor (5) PHYLICIA on CPAP: Code(s): G47.33 - Obstructive sleep apnea (adult) (pediatric) Status: Chronic Assessment and Plan: - continue home CPAP Plan Reported history of diabetes, however no longer on medications and A1C most recently 5.5% on 07/20/2024. Diet: Heart healthy GI Prophylaxis: N/a DVT Prophylaxis: Lovenox IV fluids: 150 mL/hour x1 L Lines/Tubes: Peripheral IV Code Status: Full code Quality VTE Prophylaxis VTE prophylaxis: pharmacologic ordered Hospitalist [facility] Advance Care Plan I have confirmed that the patient's Advanced Care Plan is present, code status is documented, or surrogate decision maker is listed in patient medical record.: Yes Medication Reconciliation I have utilized all available resources to obtain, update and review the [facility] ients current medications (includes all prescriptions, OTC, herbals, cannabis, and nutritional supplements).: Yes
--- NOTE | 2024-10-25 15:15 | PCCCNOTE ---
ED provider stated the pt will be admitted to facility however is concerned about her safety. Stated she lives alone, is in [facility] facility and has a few caregivers but no other family. Stated her is alert and she would like him to still make medical decisions for her. Updated her Code Status to DNR with selective treatment. Updated the provider and assigned nurse in the ED.-derek
--- NOTE | 2024-10-25 16:23 | ADMGEN ---
This patient, Racheal North, was admitted to 2 Medical Room 240-. Patient/family oriented to hospital policies and general routines including ID bracelet, bed and alarms, visiting hours, pain management, procedures, bathroom and other care routines, personal items, smoking policy, room service/diet, and visiting hours. Information on how to activate the Rapid Response Team has been discussed. Patient/Family are encouraged to report perceived risks to care and to ask questions if they do not understand what they are told or what they should do.
[2024-10-25] MEDS: SODIUM CHLORIDE 0.9% IV 1,000 ML 150 ML IV CONT (16:58)
[2024-10-25] MEDS: MEROPENEM 1 GM in SODIUM CHLORIDE 0.9% IV 100 ML 200 ML IVPB (16:59)
--- NOTE | 2024-10-25 17:20 | PC.NURSE ---
we did not check pt's blood sugar prior to dinner, family had brought her a fast food burger and shake at aprox 1630
[2024-10-25] MEDS: DONEPEZIL HCL 5 MG TABLET PO (20:14)
[2024-10-26 02:27] VITALS: O2SAT 95
[2024-10-26 04:58] VITALS: BP 154/56; PULSE 62; RESP 16; TEMP 36.1; O2SAT 98
[2024-10-26] MEDS: MEROPENEM 1 GM in SODIUM CHLORIDE 0.9% IV 100 ML 200 ML IVPB (05:08)
[2024-10-26 05:15] LABS: Hematocrit 40.3 % (37.0-47.0); Hemoglobin 12.5 g/dL (12.0-15.0); Immature Granulocyte Percent A 0.3 % (0-0.5); Lymphocytes Absolute Auto 1.72 K/mm3 (0.9-3.2); Mean Corpuscular HGB Conc 31.0 g/dl (32-36); Mean Corpuscular Hemoglobin 26.9 pg (26-34); Mean Corpuscular Volume 86.7 fl (80-100); Nucleated Red Blood Cells Absolute Auto 0.000 K/mm3 (0.0-0.012); Nucleated Red Blood Cells Perc 0.0 % (0.0-0.2); Platelet Count Result 286 k/mm3 (150-375); Red Blood Count 4.65 M/mm3 (4.2-5.4); White Blood Count 7.9 K/mm3 (4.5-10.0)
[2024-10-26] MEDS: LEVOTHYROXINE SODIUM 125 MCG TABLET PO (05:38)
[2024-10-26 05:55] LABS: Alanine Aminotransferase 10 U/L (6-35); Albumin Level 3.2 g/dL (3.5-5.1); Alkaline Phosphatase 59 U/L (38-126); Anion Gap 6 mmol/L (4-12); Aspartate Amino Transferase 29 U/L (14-36); Bilirubin,Total 0.3 mg/dL (0.2-1.3); Blood Urea Nitrogen 10 mg/dL (7-17); Calcium 9.3 mg/dL (8.4-10.2); Carbon Dioxide 24 mmol/L (22-30); Chloride 108 mmol/L (98-107); Estimated CRCL calculation 39 ml/min; Estimated Glomerular Filt Rate 50; Glucose 93 mg/dL (65-110); Potassium 4.0 mmol/L (3.4-5.0); Sodium 138 mmol/L (137-145); Total Protein 6.8 g/dL (6.3-8.2)
[2024-10-26] MEDS: CYANOCOBALAMIN 1,000 MCG TABLET 1000 MCG PO (08:54)
[2024-10-26] MEDS: CHOLECALCIFEROL (VITAMIN D3) 25 MCG (1,000 UNITS) TABLET 50 MCG PO (08:54)
[2024-10-26] MEDS: ENOXAPARIN 40 MG/0.4 ML SYRINGE SUB-Q (08:54)
--- NOTE | 2024-10-26 11:40 | P.CONNEU_ITS ---
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: unspecified fdc insulin use status Diabetes mellitus complication status: without complication Q ualified Code(s): E11.9 - Type 2 diabetes mellitus without complications Code(s): E11.9 - Type 2 diabetes mellitus without complications Status: Chronic (3) Neuropathy: Code(s): G62.9 - Polyneuropathy, unspecified Status: Acute (4) Memory dysfunction: Code(s): R41.3 - Other amnesia Status: Acute (5) Neurologic gait dysfunction: Code(s): R26.9 - Unspecified abnormalities of gait and mobility Status: Acute (6) History of hydrocephalus: Code(s): Z86.69 - Personal history of other diseases of the nervous system and sense organs Status: Acute Plan 1. Generalized weakness with additional complaints of slurred speech and with the statement that she usually able to transfer by herself but not at present. Consider the possibility of TIA 2. Ongoing dementia for which patient is already taking donepezil 5mg at night 3. Diabetic with neuropathy will result in the gait dysfunction and balance difficulties. Number CTA has been consistent with the large vessel disease particularly involving the left internal carotid artery, will benefit from continuation of the aspirin and discussion can be made with family with the want to pursue further or not though it is extremely unlikely. Consult date: 10/26/24 HPI: Racheal North is a 79 year old femaleAdmitted to the hospital through the emergency room with the complaints of generalized weakness in addition to the history of 1. Hypertension 2. Hyperlipidemia 3. Dementia 4. B12 deficiency 5. Aortic stenosis 6. Degenerative joint disease and 7. Hypothyroidism . patient has ongoing history of being former smoker, never alcohol intake or, on initial exam in the emergency room general exam was stable except the presence of the cardiac murmur, vital signs were with blood pressure 158/59, CBC was normal, BMP was normal, master scan was normal, UA was abnormal. CT scan of the head was negative for the bleed, hydrocephalus or any major stroke except the chronic periventricular white matter changes , CTA of the head and neck revealed calcified plaque in the cavernous portion of the bilateral internal carotid arteries causing less than 50% stenosis, calcified plaque in the proximal left internal carotid artery with 60 to 70% stenosis and calcified plaque in the proximal right internal carotid artery causing approximately 50% stenosis, her home medication DiD include donepezil 5mg at HS, levothyroxine 125mcg daily, memantine 5mg daily, pravastatin 80mg daily, and metoprolol ER 3 tablets p.o. 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 Review of Systems 2 Review of Systems: All systems reviewed & are unremarkable except as noted in HPI and below PMFSH Past Medical History Medical History Dementia Cognitive dysfunction Stage 3a chronic kidney disease B12 deficiency Aortic stenosis Fall NPH (normal pressure hydrocephalus) Nausea and vomiting in adult Tachycardia Diastolic congestive heart failure Peripheral vascular disease Type 2 diabetes mellitus Degenerative joint disease Murmur, heart Vitamin D deficiency Hypothyroidism (acquired) Hyperlipidemia Essential hypertension PHYLICIA on CPAP Surgical History Surgical History History of bladder repair surgery For bladder prolapse. Family History Family History Mother Hypertension, Onset Age: 70 Cerebrovascular accident Patient's mother is Sibling Carcinoma of colon Other Family history of arthritis Family history of coronary artery disease Social History Social History Social History: Surrogate medical decision maker: Dago North, spouse. Code status: Full code. Smoking status: Former smoker Second hand tobacco smoke exposure: No Alcohol intake: never Substance use: never Substance use type: does not use Do You Feel Safe in your Home?: Yes Lack of Transportation: No Lack of Food: Never True Current Housing: I Have Housing Concerned About Future Housing: No Difficulty Paying Gas/Electric Bills: No Difficulty Paying for Meds: No Currently Unemployed: No Education: High School Diploma/GED Difficulty w/ Childcare or Family Care: No Additional living arrangements comments: Lives with spouse in [place]. Spiritual care concerns: No Meds Home Medications and Allergies Home Medications ?Medication ?Instructions ?Recorded ?Confirmed ?Type cholecalciferol (vitamin D3) 50 50 mcg PO DAILY 10/25/24 History mcg (2,000 unit) capsule cyanocobalamin (vitamin B-12) 1,000 mcg PO QAM #30 tab s 11/05/23 10/25/24 Rx 1,000 mcg tablet (Vitamin B-12) donepezil 5 mg tablet (Aricept) 5 mg PO HS #90 tabs 10/25/24 Rx levothyroxine 125 mcg tablet 125 mcg PO DAILY@0630 #90 tabs 09/16/24 10/25/24 Rx (Synthroid) Allergies Allergy/AdvReac Type Severity Reaction Status Date / Time Influenza Virus Vaccines Allergy Unknown Anaphylaxis Verified 10/25/24 18:14 Sulfa (Sulfonamide AdvReac Intermediate Rash Verified 10/25/24 18:14 Antibiotics) 1 GENERAL ANESTHISIA LAST Allergy Unknown Other Uncoded 10/25/24 18:14 2 SURGS Vital Signs Vital Signs - 24 hr 10/25/24 11:57 10/25/24 13:16 10/25/24 14:54 Temperature Pulse Rate 59 L 66 64 Respiratory Rate 16 25 H 22 H Blood Pressure 168/58 H 174/84 H 152/70 H Pulse Oximetry 99 98 98 Oxygen Delivery 10/25/24 15:23 10/25/24 19:40 10/25/24 20:10 Temperature 36.3 C L Pulse Rate 68 64 Respiratory Rate 20 16 Blood Pressure 158/59 H 182/51 H Pulse Oximetry 97 98 Oxygen Delivery Room Air 10/25/24 21:28 10/26/24 02:26 10/26/24 02:27 Temperature Pulse Rate Respiratory Rate Blood Pressure Pulse Oximetry 96 95 Oxygen Delivery Room Air CPAP Room Air 10/26/24 04:58 10/26/24 08:00 10/26/24 11:00 Temperature 36.1 C L Pulse Rate 62 Respiratory Rate 16 Blood Pressure 154/56 H Pulse Oximetry 98 Oxygen Delivery Room Air Room Air Exam 2 Narrative: Examination today revealed her to be awake alert cooperative in no obvious acute distress, head was normocephalic with no cranial bruit, ear nose throat examination were normal, neck was supple with cervical bruits, heart was regular with murmur lungs were clear with no rhonchi or crepitations, abdomen is soft nontender with normal bowel sounds, motor examination revealed her to be normal strength in upper and lower extremities normal tone, deep tendon reflexes sluggish plantars downgoing is no evidence of gross cerebellar deficit. Results Labs 10/26/24 04:12 10/26/24 04:12 Labs: Short CBC 10/26/24 Range/Units 04:12 WBC 7.9 (4.5-10.0) K/mm3 Hgb 12.5 (12.0-15.0) g/dL Hct 40.3 (37.0-47.0) % Plt Count 286 (150-375) k/mm3 BMP 10/26/24 04:12 Sodium 138 Potassium 4.0 Chloride 108 H Carbon Dioxide 24 BUN 10 Creatinine 1.07 H Glucose 93 Calcium 9.3 Liver Function 10/26/24 Range/Units 04:12 Total Bilirubin 0.3 (0.2-1.3) mg/dL AST 29 (14-36) U/L ALT 10 (6-35) U/L Alkaline Phosphatase 59 (38-126) U/L Albumin 3.2 L (3.5-5.1) g/dL Urine 10/25/24 Range/Units 11:37 Urine Color Yellow (Yellow) Urine Appearance Turbid H (Clear) Urine pH 6.5 (5.0-9.0) Ur Specific [place] 1.012 (1.001-1.035) Urine Protein Trace (Negative) mg/dL Urine Glucose (UA) Negative (Negative) mg/dL
--- NOTE | 2024-10-26 13:40 | PM.IMPN ---
Progress Note: A&P Assessment and Plan (1) UTI (urinary tract infection): Qualifiers: Hematuria presence: without hematuria Urinary tract infection type: site unspecified Qualified Code(s): N39.0 - Urinary tract infection, site not specified Code(s): N39.0 - Urinary tract infection, site not specified Status: Resolved Assessment and Plan: - UA: Turbid, 1+ blood, positive nitrates, 3+ leuk esterase, greater than 100 WBC, 4+ bacteria and many epithelial cells. Infection versus contamination, given worsening weakness presumed infectious. - UC pending - previous micro reviewed Proteus mirabilis with moderate amount of resistances in October of 2023 ESBL in July 01, May 31 and April 02 - started on Ceftriaxone in the ED, transitioned to Meropenem due to ESBL hx h/o ESBL but while back- longer than 5-6 months, will switch back to Ceftriaxone and monitor for UA culture (2) Generalized weakness: Code(s): R53.1 - Weakness Status: Acute Assessment and Plan: Worsening generalized weakness over the last 1-2 weeks. UA suspicious for UTI, see above. Some concern for slurred speech, however patient denies and not well appreciated on exam. Does have a slow speech jailene. Trace left lower extremity weakness also noted, however patient reports this is her baseline. Patient additionally has a past medical history significant for normal pressure hydrocephalus. - Head CT: No evidence for acute intracranial hemorrhage or calvarial fracture. - Head/neck CTA: 1. Calcified plaque in the cavernous portions of bilateral internal carotid arteries causing less than 50% stenosis. Otherwise, grossly unremarkable CTA of the head. 2. There is calcified plaque in the proximal left internal carotid artery causing approximately 60-70% stenosis. Consider an ultrasound of the carotid arteries for further assessment. 3. There is calcified plaque in the proximal right internal carotid artery causing approximately 50% stenosis. Consider an ultrasound the carotid arteries for further assessment. - neuro consulted - PT/OT eval and treat - swallow eval ordered (3) Chronic kidney disease, stage 3: Code(s): N18.30 - Chronic kidney disease, stage 3 unspecified Status: Chronic Assessment and Plan: - creatinine 1.08, BUN 12, GFR 49 upon admission - baseline creatinine: 0.9-1.2, has fluctuated significantly over the last year - trend renal function - trend electrolytes, correct as needed (4) Essential hypertension: Code(s): I10 - Essential (primary) hypertension Status: Acute Assessment and Plan: - chronic, currently 158/59 - not currently on a daily antihypertensive - monitor (5) PHYLICIA on CPAP: Code(s): G47.33 - Obstructive sleep apnea (adult) (pediatric) Status: Chronic Assessment and Plan: - continue home CPAP Plan Reported history of diabetes, however no longer on medications and A1C most recently 5.5% on 07/20/2024. Diet: Heart healthy GI Prophylaxis: N/a DVT Prophylaxis: Lovenox IV fluids: 150 mL/hour x1 L Lines/Tubes: Peripheral IV Code Status: Full code Time Spent With Patient Time with patient: 25 - 35 minutes Subjective Date/time seen: 10/26/24 13:40 Interval history: 79 y/o F with PMH of dementia, CKD, diastolic CHF, PVD, DM2, aortic stenosis, hypothyroidism, HLD, HTN, and PHYLICIA on CPAP presents here with generalized weakness and slurred speech. Neurology is consulted, speech consult ordered. Pt really wants to go home as cannot eat anything here or sleep. Review of Systems Review of Systems: All systems reviewed & are unremarkable except as noted in HPI and below Exam Narrative: LLE trace weakness. some slow speech jailene. Const: General: comfortable and no acute distress Other: , female, elderly, chronically ill-appearing HENMT: Face/Nose/Sinus: Normal nares present Mouth: Yes moist mucous membranes Eyes: General: appearance normal, both eyes and all related structures Sclera: sclerae normal Pupils: Equal, round and reactive pupils present EOM: EOMs intact bilaterally Resp: Effort & Inspection: normal respiratory effort Auscultation: clear to auscultation bilaterally Cardio: Rate: regular rate Rhythm: regular rhythm Other: S1-S2 present without murmur, rub, ectopy GI: Other: Abdomen soft, nondistended, nontender. Normoactive bowel sounds in all quadrants. Skin: General skin exam: normal color and no rashes or lesions noted Wounds: no wounds Neuro: Cranial nerves: Yes Equal, round and reactive pupils present Other: Patient has a slow speech jailene, slurring not appreciated. Patient reports this is her baseline. No sensory deficits. Plus five in bilateral upper extremities and the right lower extremity. Trace weakness in the left lower extremity which she reports is her baseline. A&O x3 Extrem: General: normal to inspection Psych: Mental Status: mental status grossly normal Affect: normal affect Other: Fair insight and judgment, pleasant Objective Data Vital Signs Vital Signs: Vital Signs - 24 hr 10/25/24 14:54 10/25/24 15:23 10/25/24 19:40 Temperature 97.4 F L Pulse Rate 64 68 64 Respiratory Rate 22 H 20 16 Blood Pressure 152/70 H 158/59 H 182/51 H Pulse Oximetry 98 97 98 Oxygen Delivery 10/25/24 20:10 10/25/24 21:28 10/26/24 02:26 Temperature Pulse Rate Respiratory Rate Blood Pressure Pulse Oximetry 96 Oxygen Delivery Room Air Room Air CPAP 10/26/24 02:27 10/26/24 04:58 10/26/24 08:00 Temperature 97.0 F L Pulse Rate 62 Respiratory Rate 16 Blood Pressure 154/56 H Pulse Oximetry 95 98 Oxygen Delivery Room Air Room Air 10/26/24 11:00 Temperature Pulse Rate Respiratory Rate Blood Pressure Pulse Oximetry Oxygen Delivery Room Air Intake/Output Intake/Output: Intake & Output 10/23/24 10/24/24 10/25/24 10/26/24 23:59 23:59 23:59 23:59 Intake Total 890 360 Output Total 350 200 Balance 540 160 Meds/Results Medications: Active Medications Generic Name Dose Route Start Last Admin Trade Name Freq PRN Reason Stop Dose Admin Acetaminophen 650 mg 10/25/24 15:00 Acetaminophen 325 Mg Tablet PO Q6H PRN Mild Pain (1-3) or Fever Hydrocodone Bitart/Acetaminophen 1 tab 10/25/24 15:00 Hydrocodone/Acetaminophen (*Crx) 5-325 Mg Tablet PO Q6H PRN Pain Rated 4-6 Cyanocobalamin 1,000 mcg 10/26/24 09:00 10/26/24 08:54 Cyanocobalamin 1,000 Mcg Tablet PO 1,000 mcg QAM PREMA Administration Donepezil HCl 5 mg 10/25/24 21:00 10/25/24 20:14 Donepezil Hcl 5 Mg Tablet PO 5 mg HS PREMA Administration Enoxaparin Sodium 40 mg 10/26/24 09:00 10/26/24 08:54 Enoxaparin 40 Mg/0.4 Ml Syringe SUB-Q 40 mg DAILY PREMA Administration Ceftriaxone Sodium 2 gm/ 100 mls @ 200 mls/hr 10/26/24 18:00 Sodium Chloride IVPB Q24H PREMA Levothyroxine Sodium 125 mcg 10/26/24 06:30 10/26/24 05:38 Levothyroxine Sodium 125 Mcg Tablet PO 125 mcg DAILY@0630 PREMA Administration Ondansetron HCl 4 mg 10/25/24 14:33 Ondansetron Inj 4 Mg/2 Ml Vial IV PUSH Q4H PRN Nausea Vitamin D 50 mcg 10/26/24 09:00 10/26/24 08:54 Cholecalciferol (Vitamin D3) 25 Mcg (1,000 Units) Tablet PO 50 mcg DAILY PREMA Administration Radiology Results: ITS Impressions Head CT 10/25/24 11:02 IMPRESSION: No evidence for acute intracranial hemorrhage or calvarial fracture. Chest X-Ray 10/25/24 11:03 IMPRESSION: 1. Mild increased initial pattern at the bilateral lower lung zones which could represent mild pulmonary edema, atelectasis or less likely pneumonia. Head/Neck CTA 10/25/24 11:55 IMPRESSION: 1. Calcified plaque in the cavernous portions of bilateral internal carotid arteries causing less than 50% stenosis. Otherwise, grossly unremarkable CTA of the head. 2. There is calcified plaque in the proximal left internal carotid artery causing approximately 60-70% stenosis. Consider an ultrasound of the carotid arteries for further assessment. 3. There is calcified plaque in the proximal right internal carotid artery causing approximately 50% stenosis. Consider an ultrasound the carotid arteries for further assessment. Findings as above. Labs Labs: Laboratory Results - last 24 hr 10/25/24 10/26/24 10/26/24 19:36 04:12 08:15 WBC 7.9 RBC 4.65 Hgb 12.5 Hct 40.3 MCV 86.7 MCH 26.9 MCHC 31.0 L RDW 15.3 H Plt Count 286 MPV 11.4 H Immature Gran % (Auto) 0.3 Neut % (Auto) 64.1 Lymph % (Auto) 21.9 Hill % (Auto) 10.0 H Eos % (Auto) 2.9 Baso % (Auto) 0.8 Lymph # (Auto) 1.72 Hill # (Auto) 0.8 H Eos # (Auto) 0.2 Baso # (Auto) 0.1 Abs Immat Gran (auto) 0.02 Absolute Neuts (auto) 5.1 Absolute Nucleated RBC 0.000 Nucleated RBC % 0.0 Sodium 138 Potassium 4.0 Chloride 108 H Carbon Dioxide 24 Anion Gap 6 BUN 10 Creatinine 1.07 H Estim Creat Clear Calc 39 Estimated GFR 50 L Glucose 93 POC Capillary Glucose 111 H 107 H Calcium 9.3 Total Bilirubin 0.3 AST 29 ALT 10 Alkaline Phosphatase 59 Total Protein 6.8 Albumin 3.2 L 10/26/24 12:10 WBC RBC Hgb Hct MCV MCH MCHC RDW Plt Count MPV Immature Gran % (Auto) Neut % (Auto) Lymph % (Auto) Hill % (Auto) Eos % (Auto) Baso % (Auto) Lymph # (Auto) Hill # (Auto) Eos # (Auto) Baso # (Auto) Abs Immat Gran (auto) Absolute Neuts (auto) Absolute Nucleated RBC Nucleated RBC % Sodium Potassium Chloride Carbon Dioxide Anion Gap BUN Creatinine Estim Creat Clear Calc Estimated GFR Glucose POC Capillary Glucose 133 H Calcium Total Bilirubin AST ALT Alkaline Phosphatase Total Protein Albumin Quality VTE Prophylaxis VTE prophylaxis: pharmacologic ordered
[2024-10-26 14:00] VITALS: BP 143/58; PULSE 84; RESP 17; TEMP 36.4; O2SAT 99
--- NOTE | 2024-10-26 14:33 | PCSTNOTE ---
Please refer to the Bedside Swallow Evaluation in the EMR. Please note, silent aspiration cannot be ruled out at bedside. Patient is 79-year-old female admitted with generalized weakness, complaints of slurred speech, and possible TIA. Patient has history of ongoing dementia. Family reported to RN difficulty swallowing and patient had difficulty taking pills this morning, however patient denies difficulty. Patient is sitting in the chair with no family present for bedside swallow evaluation. MANAGER PLACEMENT conducted oral mechanism exam, in which no facial asymmetry was noted. Patient's oral mucosa was normal. Patient has upper dentures and natural lower dentition with some missing teeth. Patient demonstrated good lingual and lip range of motion, as well as clear vocal quality. MANAGER PLACEMENT presented 5/mL of ice chip via spoon, cup sip (uncontrolled thin 1), puree (pudding), solid (cracker), and sip via straw (uncontrolled thin 2). Patient readily accepts PO trials and self-feeds with set up assistance throughout. Patient demonstrated good containment of bolus and timely oral manipulate and transport. Due to cognition, patient did appear to lose focus and required verbal cue to initiate swallow for only thin straw sip trial. No significant oral residue is noted. Presence of swallow initiation is felt to palpation by MANAGER PLACEMENT. No overt signs or symptoms of aspiration is observed. It is noted the presence of silent aspiration cannot be ruled out at bedside. Recommended level 7 regular diet and level 0thin liquids. No ST services indicated at this time. Recommendations communicated with bedside RN, Magdalena and , Dr. Gomez. Thank you for this referral.
[2024-10-26] MEDS: cefTRIAXone 2 GM in SODIUM CHLORIDE 0.9% IV 100 ML 200 ML IVPB (17:18)
[2024-10-26 20:04] VITALS: BP 149/75; PULSE 81; RESP 17; TEMP 36.7; O2SAT 100
[2024-10-26] MEDS: DONEPEZIL HCL 5 MG TABLET PO (20:12)
[2024-10-27] VITALS (8 sets, daily range): BP systolic 148–150; BP diastolic 64–68; PULSE 63–97; RESP 17; TEMP 36.3–36.9; O2SAT 94–100
--- NOTE | 2024-10-27 | ECHO_ITS ---
Patient Info Name: Racheal North Age: 79 years : 1945 Gender: Female Ht: 62 in Wt: 172 lbs BSA: 1.88 m2 BP: 150 / 64 mmHg Technical Quality: Good Exam Date: 10/27/2024 10:46 AM Patient Status: I Admit Date: 10/26/2024 Exam Type: CA echo doppler w bubble study Complete two-dimensional, color flow and Doppler transthoracic echocardiogram is performed with agitated saline. Staff Referring Physician: Jenelle Cueva Taffy Candy Maker: Carolyn Russ Attending Provider: Tulio Gallo Contrast/Agitated Saline Contrast/Ag. Saline: Agitated Saline Amount: 12.00 ml Existing IV Access: Yes IV Access Condition: patent with no signs of infiltration Summary 1. Left ventricular systolic function is hyperdynamic, estimated at 65-70. 2. There is mildly increased left ventricular wall thickness. 3. The left ventricular diastolic function is grade I diastolic dysfunction. 4. Right ventricular chamber dimension is mildly enlarged. 5. Right ventricular systolic function is normal. 6. Intact interatrial septum visualized by agitated saline imaging. 7. There is moderate aortic valve stenosis. JOHNNY 1.2cm2. Mean gradient 12mmHg. 8. There is mild aortic valve regurgitation. 9. There is moderate aortic valve calcification. 10. There is moderate mitral valve regurgitation. 11. There is mild mitral valve calcification. 12. There is trace tricuspid valve regurgitation. 13. No pulmonary hypertension, estimated pulmonary arterial systolic pressure is 27 mmHg. Left Ventricle Left ventricular chamber dimension is normal. Left ventricular systolic function is hyperdynamic, estimated at 65-70. There is mildly increased left ventricular wall thickness. Left ventricular septal wall motion is normal. The left ventricular diastolic function is grade I diastolic dysfunction. Right Ventricle Right ventricular chamber dimension is mildly enlarged. Right ventricular systolic function is normal. Left Atria Left atrial chamber dimension is normal. Right Atria Right atrial chamber dimension is normal. Atrial Septum Intact interatrial septum visualized by agitated saline imaging. Aortic Valve The aortic valve is probable trileaflet. There is no aortic valve sclerosis. There is moderate aortic valve stenosis. JOHNNY 1.2cm2. Mean gradient 12mmHg. There is mild aortic valve regurgitation. There is moderate aortic valve calcification. Pulmonic Valve The pulmonic valve is normal. There is no pulmonic valve stenosis. There is no pulmonic regurgitation. Mitral Valve The mitral valve has normal leaflets. There is no mitral valve stenosis. There is moderate mitral valve regurgitation. There is mild mitral valve calcification. Tricuspid Valve The tricuspid valve leaflets are normal. There is no significant tricuspid valve stenosis. There is trace tricuspid valve regurgitation. No pulmonary hypertension, estimated pulmonary arterial systolic pressure is 27 mmHg. Pericardium/Pleural The pericardium appears normal. There is no pericardial effusion. Inferior Vena Cava Normal inferior vena cava with >50% collapse upon inspiration consistent with normal right atrial pressure, 5 mmHg. Aorta The aortic root size at the sinus of Valsalva is normal. The prox ascending aorta size is normal. Left Ventricular Outflow Tract Name Value Normal LVOT 2D LVOT Diameter 1.7 cm LVOT Doppler LVOT Peak Velocity 86 cm/s LVOT Peak Gradient 3 mmHg LVOT Mean Gradient 2 mmHg LVOT VTI 22 cm LVOT VTI/AV VTI Ratio 0.4 LVOT Stroke Volume 51 ml LVOT CO 8.8 l/min LVOT CI 4.7 l/min/m2 Pulmonic Valve Name Value Normal PV Doppler PV Peak Velocity 94 cm/s PV Peak Gradient 4 mmHg Mitral Valve Name Value Normal MV Diastolic Function MV E Peak Velocity 71 cm/s MV A Peak Velocity 107 cm/s MV E/A 0.7 MV Decel Time (PW) 331 ms MV Annular TDI MV E/e' (Septal) 15.1 MV E/e' (Lateral) 11.1 MV E/e' (Average) 13.1 Tricuspid Valve Name Value Normal TV Regurgitation Doppler TR Peak Velocity 236 cm/s TR Peak Gradient 22 mmHg Estimated PAP/RSVP RA Pressure 5 mmHg <=5 PA Systolic Pressure 27 mmHg <36 RV Systolic Pressure 27 mmHg <36 TV Annular TDI TV Lateral Barbra s' Velocity 12.7 cm/s >=9.5 Aorta Name Value Normal Ascending Aorta Ao Root Diameter (MM) 2.5 cm Ao Root Diam Index (MM) 1.3 cm/m2 Aortic Valve Name Value Normal AV Doppler AV Peak Velocity 224 cm/s AV Peak Gradient 20 mmHg AV Mean Gradient 12 mmHg AV VTI 56 cm AV Area (Cont Eq VTI) 0.9 cm2 >=3.0 AV Area (Cont Eq Feliberto) 0.9 cm2 AV DI (Feliberto) 0.38 AV Regurgitation 2D LVOT Area 2.3 cm2 Ventricles Name Value Normal LV Dimensions 2D/MM IVS Diastolic Thickness (2D) 1.4 cm 0.6-1.0 LVID Diastole (2D) 3.7 cm 3.8-5.2 LVIW Diastolic Thickness (2D) 1.2 cm 0.6-0.9 LVID Systole (2D) 2.4 cm 2.2-3.5 LVOT Diameter 1.7 cm LV Mass (2D Cubed) 166.46 g 67.00-162.00 LV Mass Index (2D Cubed) 89 g/m2 43-95 Relative Wall Thickness (2D) 0.66 <=0.42 LV Fractional Shortening/Ejection Fraction 2D/MM LV Fractional Shortening (2D) 35 % 27-45 LV EF (2D Teichholz) 65 % LV Diastolic Volume (4C MOD) 85 ml LV EF (4C MOD) 74 % LV Diastolic Volume (2C MOD) 83 ml LV EF (2C MOD) 70 % LV Diastolic Volume (BP MOD) 93 ml 46-106 LV Diastolic Volume Index (BP MOD) 49 ml/m2 29-61 LV Systolic Volume (BP MOD) 25 ml 14-42 LV Systolic Volume Index (BP MOD) 13 ml/m2 8-24 LV EF (BP MOD) 73 % 54-74 LV Diastolic Length (4C) 8.2 cm LV Systolic Length (4C) 6.2 cm LV Stroke Volume (4C MOD) 63 ml RV Dimensions 2D/MM RVID Diastole (2D) 4.4 cm 2.1-3.5 Atria Name Value Normal LA Dimensions LA Dimension (MM) 4.5 cm 2.7-3.8 LA Volume (4C A-L) 32 ml LA Volume (BP A-L) 45 ml RA Dimensions RA Systolic Major [place] Length (4C) 4.5 cm 2.2-2.8 RA Area (4C) 11.0 cm2 <=18.0 Report Signatures
[2024-10-27] MEDS: LEVOTHYROXINE SODIUM 125 MCG TABLET PO (06:11)
--- NOTE | 2024-10-27 08:48 | PM.IMPN ---
Progress Note: A&P Assessment and Plan (1) UTI (urinary tract infection): Qualifiers: Hematuria presence: without hematuria Urinary tract infection type: site unspecified Qualified Code(s): N39.0 - Urinary tract infection, site not specified Code(s): N39.0 - Urinary tract infection, site not specified Status: Resolved Assessment and Plan: - UA: Turbid, 1+ blood, positive nitrates, 3+ leuk esterase, greater than 100 WBC, 4+ bacteria and many epithelial cells. Infection versus contamination, given worsening weakness presumed infectious. - UC pending - previous micro reviewed Proteus mirabilis with moderate amount of resistances in October of 2023 ESBL in July 01, May 31 and April 02 - started on Ceftriaxone in the ED, transitioned to Meropenem due to ESBL hx h/o ESBL but while back- longer than 3-6 months, will switch back to Ceftriaxone and monitor for UA culture Patient continues to endorse dysuria and burning sensation. (2) Generalized weakness: Code(s): R53.1 - Weakness Status: Acute Assessment and Plan: Worsening generalized weakness over the last 1-2 weeks. UA suspicious for UTI, see above. Some concern for slurred speech, however patient denies and not well appreciated on exam. Does have a slow speech jailene. Trace left lower extremity weakness also noted, however patient reports this is her baseline. Patient additionally has a past medical history significant for normal pressure hydrocephalus. - Head CT: No evidence for acute intracranial hemorrhage or calvarial fracture. - Head/neck CTA: 1. Calcified plaque in the cavernous portions of bilateral internal carotid arteries causing less than 50% stenosis. Otherwise, grossly unremarkable CTA of the head. 2. There is calcified plaque in the proximal left internal carotid artery causing approximately 60-70% stenosis. Consider an ultrasound of the carotid arteries for further assessment. 3. There is calcified plaque in the proximal right internal carotid artery causing approximately 50% stenosis. Consider an ultrasound the carotid arteries for further assessment. - Monitor CBC, CMP, magnesium, troponin, and lipid profile - Monitor blood pressure, allow for permissive hypertension. - Telemetry monitoring - Monitor blood glucose - PT/OT eval and treat - Neurology consulted, appreciate assistance and recommendations Discussed patient with neurology Dr. Alonso who agrees that given the stenosis of the bilateral proximal ICAs and the concern for TIA vs CVA will start on asa and high intensity statin. Per Dr. Alonso no plavix is needed at this time. Will also complete a full stroke workup with brain MRI and echo. Patient is adamant that she does not want a MRI at this time as she have severe claustrophobia. Discussed with patient that we can give an antianxiety medication prior to the imaging to help with anxiety related to the imaging. She continues to refuse. Neurology made aware that patient does not wish to have MRI completed. (3) Chronic kidney disease, stage 3: Code(s): N18.30 - Chronic kidney disease, stage 3 unspecified Status: Chronic Assessment and Plan: - creatinine 1.08, BUN 12, GFR 49 upon admission - baseline creatinine: 0.9-1.2, has fluctuated significantly over the last year - trend renal function and electrolytes, correct as needed - renally dose medications - monitor I/O - avoid nephrotoxic medications (4) Essential hypertension: Code(s): I10 - Essential (primary) hypertension Status: Acute Assessment and Plan: - chronic, not currently on a daily antihypertensive - per chart review patient has been hypertensive since 2023 - started on losartan 25 mg daily - monitor (5) PHYLICIA on CPAP: Code(s): G47.33 - Obstructive sleep apnea (adult) (pediatric) Status: Chronic Assessment and Plan: - continue home CPAP Time Spent With Patient Time with patient: 25 - 35 minutes Subjective Date/time seen: 10/27/24 08:48 Interval history: 79 y/o F with PMH of dementia, CKD, diastolic CHF, PVD, DM2, aortic stenosis, hypothyroidism, HLD, HTN, and PHYLICIA on CPAP presents here with generalized weakness and slurred speech. Patient is pleasant lying comfortably in bed. She is currently Aox3 on assessment. She continues to endorse occasional slurred speech but otherwise denies any weakness or numbness. She also noted burning sensation and pain with urination that has slightly improved since admission. She has no other complaints denying chest pain, shortness of breath, palpitations, nausea/vomiting and abdominal pain. Discussed patient with neurology Dr. Alonso who agrees that given the stenosis of the bilateral proximal ICAs and the concern for TIA vs CVA will start on asa, plavix, and high intensity statin. As well as complete a stroke workup with brain MRI and echo. Patient is adamant that she does not want a MRI at this time as she have severe claustrophobia. Discussed with patient that we can give an antianxiety medication prior to the imaging to help with anxiety related to the imaging. She continues to refuse. Rediscussed with neurology Dr. Alonso who states no plavix is needed at this time. Plavix discontinued. He was also made aware that patient does not wish to move forward with MRI. Review of Systems Review of Systems: All systems reviewed & are unremarkable except as noted in HPI and below Exam Narrative: AF HR 85 RR 17 SpO2 100 BP 150/64 General: female in no acute respiratory distress who is nontoxic appearing, sitting up in bed. HEENT: Normocephalic. Atraumatic. Pupils equal round reactive to light. Extraocular movement intact. Sclera clear and anicteric. No facial asymmetry. Chest: Lungs are clear to auscultation bilaterally. No wheezes or crackles. CV: Heart was regular rate and rhythm. Abd: Abdomen was soft. Nontender. Nondistended. Positive bowel sounds. Ext: No clubbing, cyanosis, or edema. DP pulses bilaterally. Neuro: Patient is alert and oriented x3 (person, place, month). Strength is 5/5 in both upper and lower extremities. Cranial nerves 2-12 are intact. Speech is clear. Objective Data Vital Signs Vital Signs: Vital Signs - 24 hr 10/26/24 11:00 10/26/24 14:00 10/26/24 20:04 Temperature 97.6 F 98.0 F Pulse Rate 84 81 Respiratory Rate 17 17 Blood Pressure 143/58 H 149/75 H Pulse Oximetry 99 100 Oxygen Delivery Room Air 10/26/24 20:05 10/27/24 05:42 Temperature 97.4 F L Pulse Rate 85 Respiratory Rate 17 Blood Pressure 150/64 H Pulse Oximetry 100 Oxygen Delivery Room Air Intake/Output Intake/Output: Intake & Output 10/24/24 10/25/24 10/26/24 10/27/24 23:59 23:59 23:59 23:59 Intake Total 890 580 Output Total 350 450 200 Balance 540 130 -200 Meds/Results Medications: Active Medications Generic Name Dose Route Start Last Admin Trade Name Freq PRN Reason Stop Dose Admin Acetaminophen 650 mg 10/25/24 15:00 Acetaminophen 325 Mg Tablet PO Q6H PRN Mild Pain (1-3) or Fever Hydrocodone Bitart/Acetaminophen 1 tab 10/25/24 15:00 Hydrocodone/Acetaminophen (*Crx) 5-325 Mg Tablet PO Q6H PRN Pain Rated 4-6 Cyanocobalamin 1,000 mcg 10/26/24 09:00 10/26/24 08:54 Cyanocobalamin 1,000 Mcg Tablet PO 1,000 mcg QAM PREMA Administration Donepezil HCl 5 mg 10/25/24 21:00 10/26/24 20:12 Donepezil Hcl 5 Mg Tablet PO 5 mg HS PREMA Administration Enoxaparin Sodium 40 mg 10/26/24 09:00 10/26/24 08:54 Enoxaparin 40 Mg/0.4 Ml Syringe SUB-Q 40 mg DAILY PREMA Administration Ceftriaxone Sodium 2 gm/ 100 mls @ 200 mls/hr 10/26/24 18:00 10/26/24 17:48 Sodium Chloride IVPB Infused Q24H PREMA Infusion Levothyroxine Sodium 125 mcg 10/26/24 06:30 10/27/24 06:11 Levothyroxine Sodium 125 Mcg Tablet PO 125 mcg DAILY@0630 PREMA Administration Ondansetron HCl 4 mg 10/25/24 14:33 Ondansetron Inj 4 Mg/2 Ml Vial IV PUSH Q4H PRN Nausea Vitamin D 50 mcg 10/26/24 09:00 10/26/24 08:54 Cholecalciferol (Vitamin D3) 25 Mcg (1,000 Units) Tablet PO 50 mcg DAILY PREMA Administration Radiology Results: ITS Impressions Head CT 10/25/24 11:02 IMPRESSION: No evidence for acute intracranial hemorrhage or calvarial fracture. Chest X-Ray 10/25/24 11:03 IMPRESSION: 1. Mild increased initial pattern at the bilateral lower lung zones which could represent mild pulmonary edema, atelectasis or less likely pneumonia. Head/Neck CTA 10/25/24 11:55 IMPRESSION: 1. Calcified plaque in the cavernous portions of bilateral internal carotid arteries causing less than 50% stenosis. Otherwise, grossly unremarkable CTA of the head. 2. There is calcified plaque in the proximal left internal carotid artery causing approximately 60-70% stenosis. Consider an ultrasound of the carotid arteries for further assessment. 3. There is calcified plaque in the proximal right internal carotid artery causing approximately 50% stenosis. Consider an ultrasound the carotid arteries for further assessment. Findings as above. Labs Labs: Laboratory Results - last 24 hr 10/26/24 10/26/24 10/26/24 12:10 16:50 20:02 POC Capillary Glucose 133 H 120 H 114 H 10/27/24 07:46 POC Capillary Glucose 99 Quality VTE Prophylaxis VTE prophylaxis: pharmacologic ordered
[2024-10-27] MEDS: CHOLECALCIFEROL (VITAMIN D3) 25 MCG (1,000 UNITS) TABLET 50 MCG PO (08:56)
[2024-10-27] MEDS: CYANOCOBALAMIN 1,000 MCG TABLET 1000 MCG PO (08:56)
[2024-10-27] MEDS: ENOXAPARIN 40 MG/0.4 ML SYRINGE SUB-Q (08:57)
[2024-10-27 09:22] LABS: Hematocrit 40.6 % (37.0-47.0); Hemoglobin 12.8 g/dL (12.0-15.0); Immature Granulocyte Percent A 0.2 % (0-0.5); Lymphocytes Absolute Auto 1.41 K/mm3 (0.9-3.2); Mean Corpuscular HGB Conc 31.5 g/dl (32-36); Mean Corpuscular Hemoglobin 27.4 pg (26-34); Mean Corpuscular Volume 86.9 fl (80-100); Nucleated Red Blood Cells Absolute Auto 0.000 K/mm3 (0.0-0.012); Nucleated Red Blood Cells Perc 0.0 % (0.0-0.2); Platelet Count Result 315 k/mm3 (150-375); Red Blood Count 4.67 M/mm3 (4.2-5.4); White Blood Count 6.2 K/mm3 (4.5-10.0)
[2024-10-27] MEDS: ATORVASTATIN 40 MG TABLET PO (09:24)
[2024-10-27] MEDS: ASPIRIN 81 MG ENTERIC TABLET PO (09:24)
[2024-10-27] MEDS: CLOPIDOGREL BISULFATE 75 MG TABLET PO (09:24)
[2024-10-27 09:37] LABS: Anion Gap 6 mmol/L (4-12); Blood Urea Nitrogen 8 mg/dL (7-17); Carbon Dioxide 28 mmol/L (22-30); Chloride 105 mmol/L (98-107); Potassium 3.6 mmol/L (3.4-5.0); Sodium 139 mmol/L (137-145)
[2024-10-27 09:38] LABS: Alanine Aminotransferase 12 U/L (6-35); Albumin Level 3.3 g/dL (3.5-5.1); Alkaline Phosphatase 55 U/L (38-126); Aspartate Amino Transferase 26 U/L (14-36); Bilirubin,Total 0.3 mg/dL (0.2-1.3); Calcium 9.4 mg/dL (8.4-10.2); Estimated CRCL calculation 40 ml/min; Estimated Glomerular Filt Rate 50; Glucose 112 mg/dL (65-110); Total Protein 7.0 g/dL (6.3-8.2)
--- NOTE | 2024-10-27 11:46 | WPDNEUROPN ---
Subjective Date/time seen: 10/27/24 11:46 Interval history: Follow-up note with a history of TIA /diabetes mellitus type with neuropathy, gait dysfunction and history of hydrocephalus. Patient is already receiving the donepezil 5mg daily, CTA is consistent with calcified plaques in the cavernous portion of the bilateral internal carotid arteries causing less than 50% stenosis and the calcified plaque in the proximal left internal carotid artery as well causing 60 to 70% stenosis along with 50% stenosis of proximal right internal carotid artery. Will benefit from continuation of the aspirin 81mg daily and cholesterol lowering medication on a regular basis, obviously she is not a surgical candidate because of the underlying neurological problem. She will benefit from supervision, physical therapy and instruction because of the diabetic neuropathy that she will have a tendency to fall and needs more supervision. If any further question arises please do not hesitate to contact me thank you Objective Data Vital Signs Vital Signs: Vital Signs - 24 hr 10/26/24 14:00 10/26/24 20:04 10/26/24 20:05 Temperature 36.4 C 36.7 C Pulse Rate 84 81 Respiratory Rate 17 17 Blood Pressure 143/58 H 149/75 H Pulse Oximetry 99 100 Oxygen Delivery Room Air 10/27/24 05:42 10/27/24 08:00 Temperature 36.3 C L Pulse Rate 85 Respiratory Rate 17 Blood Pressure 150/64 H Pulse Oximetry 100 Oxygen Delivery Room Air Intake/Output Intake/Output: Intake & Output 10/24/24 10/25/24 10/26/24 10/27/24 23:59 23:59 23:59 23:59 Intake Total 890 580 120 Output Total 350 450 200 Balance 540 130 -80 Meds/Results Medications: Active Medications Generic Name Dose Route Start Last Admin Trade Name Freq PRN Reason Stop Dose Admin Acetaminophen 650 mg 10/25/24 15:00 Acetaminophen 325 Mg Tablet PO Q6H PRN Mild Pain (1-3) or Fever Hydrocodone Bitart/Acetaminophen 1 tab 10/25/24 15:00 Hydrocodone/Acetaminophen (*Crx) 5-325 Mg Tablet PO Q6H PRN Pain Rated 4-6 Aspirin 81 mg 10/27/24 10:00 10/27/24 09:24 Aspirin 81 Mg Enteric Tablet PO 81 mg QAM PREMA Administration Atorvastatin Calcium 40 mg 10/27/24 10:00 10/27/24 09:24 Atorvastatin 40 Mg Tablet PO 40 mg DAILY PREMA Administration Clopidogrel Bisulfate 75 mg 10/27/24 10:00 10/27/24 09:24 Clopidogrel Bisulfate 75 Mg Tablet PO 75 mg QAM PREMA Administration Cyanocobalamin 1,000 mcg 10/26/24 09:00 10/27/24 08:56 Cyanocobalamin 1,000 Mcg Tablet PO 1,000 mcg QAM PREMA Administration Donepezil HCl 5 mg 10/25/24 21:00 10/26/24 20:12 Donepezil Hcl 5 Mg Tablet PO 5 mg HS PREMA Administration Enoxaparin Sodium 40 mg 10/26/24 09:00 10/27/24 08:57 Enoxaparin 40 Mg/0.4 Ml Syringe SUB-Q 40 mg DAILY PREMA Administration Ceftriaxone Sodium 2 gm/ 100 mls @ 200 mls/hr 10/26/24 18:00 10/26/24 17:48 Sodium Chloride IVPB Infused Q24H PREMA Infusion Levothyroxine Sodium 125 mcg 10/26/24 06:30 10/27/24 06:11 Levothyroxine Sodium 125 Mcg Tablet PO 125 mcg DAILY@0630 PREMA Administration Ondansetron HCl 4 mg 10/25/24 14:33 Ondansetron Inj 4 Mg/2 Ml Vial IV PUSH Q4H PRN Nausea Perflutren Lipid Microsphere 0 ml 10/27/24 09:12 Perflutren Lipid Microspheres 1.5 Ml Vial Diluted To 10 Ml Total Volume IV PUSH 10/30/24 09:12 ONCE PRN adequate visualization Protocol Vitamin D 50 mcg 10/26/24 09:00 10/27/24 08:56 Cholecalciferol (Vitamin D3) 25 Mcg (1,000 Units) Tablet PO 50 mcg DAILY PREMA Administration Radiology Results: ITS Impressions Head CT 10/25/24 11:02 IMPRESSION: No evidence for acute intracranial hemorrhage or calvarial fracture. Chest X-Ray 10/25/24 11:03 IMPRESSION: 1. Mild increased initial pattern at the bilateral lower lung zones which could represent mild pulmonary edema, atelectasis or less likely pneumonia. Head/Neck CTA 10/25/24 11:55 IMPRESSION: 1. Calcified plaque in the cavernous portions of bilateral internal carotid arteries causing less than 50% stenosis. Otherwise, grossly unremarkable CTA of the head. 2. There is calcified plaque in the proximal left internal carotid artery causing approximately 60-70% stenosis. Consider an ultrasound of the carotid arteries for further assessment. 3. There is calcified plaque in the proximal right internal carotid artery causing approximately 50% stenosis. Consider an ultrasound the carotid arteries for further assessment. Findings as above. Labs Labs: Laboratory Results - last 24 hr 10/26/24 10/26/24 10/26/24 12:10 16:50 20:02 WBC RBC Hgb Hct MCV MCH MCHC RDW Plt Count MPV Immature Gran % (Auto) Neut % (Auto) Lymph % (Auto) [place] % (Auto) Eos % (Auto) Baso % (Auto) Lymph # (Auto) [place] # (Auto) Eos # (Auto) Baso # (Auto) Abs Immat Gran (auto) Absolute Neuts (auto) Absolute Nucleated RBC Nucleated RBC % Sodium Potassium Chloride Carbon Dioxide Anion Gap BUN Creatinine Estim Creat Clear Calc Estimated GFR Glucose POC Capillary Glucose 133 H 120 H 114 H Calcium Total Bilirubin AST ALT Alkaline Phosphatase Total Protein Albumin 10/27/24 10/27/24 07:46 09:01 WBC 6.2 RBC 4.67 Hgb 12.8 Hct 40.6 MCV 86.9 MCH 27.4 MCHC 31.5 L RDW 15.2 H Plt Count 315 MPV 11.3 H Immature Gran % (Auto) 0.2 Neut % (Auto) 64.5 Lymph % (Auto) 22.8 [place] % (Auto) 7.8 Eos % (Auto) 3.7 Baso % (Auto) 1.0 Lymph # (Auto) 1.41 [place] # (Auto) 0.5 Eos # (Auto) 0.2 Baso # (Auto) 0.1 Abs Immat Gran (auto) 0.01 Absolute Neuts (auto) 4.0 Absolute Nucleated RBC 0.000 Nucleated RBC % 0.0 Sodium 139 Potassium 3.6 Chloride 105 Carbon Dioxide 28 Anion Gap 6 BUN 8 Creatinine 1.06 H Estim Creat Clear Calc 40 Estimated GFR 50 L Glucose 112 H POC Capillary Glucose 99 Calcium 9.4 Total Bilirubin 0.3 AST 26 ALT 12 Alkaline Phosphatase 55 Total Protein 7.0 Albumin 3.3 L
[2024-10-27] MEDS: cefTRIAXone 2 GM in SODIUM CHLORIDE 0.9% IV 100 ML 200 ML IVPB (17:26)
[2024-10-27] MEDS: DONEPEZIL HCL 5 MG TABLET PO (20:12)
[2024-10-28] VITALS (10 sets, daily range): BP systolic 128–183; BP diastolic 47–63; PULSE 56–75; RESP 12–17; TEMP 36.7–36.9; O2SAT 94–100
[2024-10-28 04:53] LABS: Hematocrit 38.5 % (37.0-47.0); Hemoglobin 11.9 g/dL (12.0-15.0); Immature Granulocyte Percent A 0.2 % (0-0.5); Lymphocytes Absolute Auto 2.33 K/mm3 (0.9-3.2); Mean Corpuscular HGB Conc 30.9 g/dl (32-36); Mean Corpuscular Hemoglobin 26.9 pg (26-34); Mean Corpuscular Volume 86.9 fl (80-100); Nucleated Red Blood Cells Absolute Auto 0.000 K/mm3 (0.0-0.012); Nucleated Red Blood Cells Perc 0.0 % (0.0-0.2); Platelet Count Result 287 k/mm3 (150-375); Red Blood Count 4.43 M/mm3 (4.2-5.4); White Blood Count 6.2 K/mm3 (4.5-10.0)
[2024-10-28 05:30] LABS: Alanine Aminotransferase 11 U/L (6-35); Albumin Level 3.0 g/dL (3.5-5.1); Alkaline Phosphatase 53 U/L (38-126); Anion Gap 5 mmol/L (4-12); Aspartate Amino Transferase 28 U/L (14-36); Bilirubin,Total 0.2 mg/dL (0.2-1.3); Blood Urea Nitrogen 10 mg/dL (7-17); Calcium 9.2 mg/dL (8.4-10.2); Carbon Dioxide 25 mmol/L (22-30); Chloride 108 mmol/L (98-107); Estimated CRCL calculation 41 ml/min; Estimated Glomerular Filt Rate 52; Glucose 90 mg/dL (65-110); Potassium 3.8 mmol/L (3.4-5.0); Sodium 138 mmol/L (137-145); Total Protein 6.5 g/dL (6.3-8.2)
[2024-10-28] MEDS: LEVOTHYROXINE SODIUM 125 MCG TABLET PO (06:15)
--- NOTE | 2024-10-28 07:08 | P.PNIM_ITS ---
Progress Note: A&P Assessment and Plan (1) TIA (transient ischemic attack): Code(s): G45.9 - Transient cerebral ischemic attack, unspecified Status: Acute Assessment and Plan: Worsening generalized weakness over the last 1-2 weeks. UA suspicious for UTI, see above. Some concern for slurred speech, however patient denies and not well appreciated on exam. Does have a slow speech jailene. Trace left lower extremity weakness also noted, however patient reports this is her baseline. Patient additionally has a past medical history significant for normal pressure hydrocephalus. - Head CT: No evidence for acute intracranial hemorrhage or calvarial fracture. - Head/neck CTA: 1. Calcified plaque in the cavernous portions of bilateral internal carotid arteries causing less than 50% stenosis. Otherwise, grossly unremarkable CTA of the head. 2. There is calcified plaque in the proximal left internal carotid artery causing approximately 60-70% stenosis. Consider an ultrasound of the carotid arteries for further assessment. 3. There is calcified plaque in the proximal right internal carotid artery causing approximately 50% stenosis. Consider an ultrasound the carotid arteries for further assessment. - MRI, not obatined due to patient refusal - Echo obtained, read pending - Monitor CBC, CMP, magnesium, troponin, and lipid profile - Monitor blood pressure, allow for permissive hypertension. - Telemetry monitoring - Monitor blood glucose - PT/OT eval and treat recommending SNF placement, care coordination following - Neurology consulted, appreciate assistance and recommendations Discussed patient with neurology Dr. Alonso who agrees that given the stenosis of the bilateral proximal ICAs and the concern for TIA vs CVA will start on asa and high intensity statin. Per Dr. Alonso no plavix is needed at this time. Patient is adamant that she does not want a MRI at this time as she have severe claustrophobia. Discussed with patient that we can give an antianxiety medication prior to the imaging to help with anxiety related to the imaging. She continues to refuse. Neurology made aware that patient does not wish to have MRI completed. 10/28: Neurology continues to recommend an MRI. Again rediscussed with patient and she again refuses due to claustrophobia. (2) UTI (urinary tract infection): Qualifiers: Hematuria presence: without hematuria Urinary tract infection type: site unspecified Qualified Code(s): N39.0 - Urinary tract infection, site not specified Code(s): N39.0 - Urinary tract infection, site not specified Status: Resolved Assessment and Plan: - UA: Turbid, 1+ blood, positive nitrates, 3+ leuk esterase, greater than 100 WBC, 4+ bacteria and many epithelial cells. Infection versus contamination, given worsening weakness presumed infectious. - UC final: negative - previous micro reviewed Proteus mirabilis with moderate amount of resistances in October of 2023 ESBL in July 01, May 31 and April 02 - started on Ceftriaxone in the ED, transitioned to Meropenem due to ESBL hx h/o ESBL but while back- longer than 3-6 months, will switch back to Ceftriaxone and monitor for UA culture Despite UC negative, since patient was endorsing dysuria and burning will still treat for a UTI to complete the course. Patient transitioned from Rocephin to Augmentin on 10/28, course to be completed on 10/29. (3) Chronic kidney disease, stage 3: Code(s): N18.30 - Chronic kidney disease, stage 3 unspecified Status: Chronic Assessment and Plan: - creatinine 1.08, BUN 12, GFR 49 upon admission - baseline creatinine: 0.9-1.2, has fluctuated significantly over the last year - trend renal function and electrolytes, correct as needed - renally dose medications - monitor I/O - avoid nephrotoxic medications Renal function remains at baseline. (4) Essential hypertension: Code(s): I10 - Essential (primary) hypertension Status: Acute Assessment and Plan: - chronic, not currently on a daily antihypertensive - per chart review patient has been hypertensive since 2023 - started on losartan 25 mg daily - blood pressure remains stable, continue to monitor (5) PHYLICIA on CPAP: Code(s): G47.33 - Obstructive sleep apnea (adult) (pediatric) Status: Chronic Assessment and Plan: - continue home CPAP Time Spent With Patient Time with patient: 25 - 35 minutes Subjective Date/time seen: 10/28/24 07:08 Interval history: 79 y/o F with PMH of dementia, CKD, diastolic CHF, PVD, DM2, aortic stenosis, hypothyroidism, HLD, HTN, and PHYLICIA on CPAP presents here with generalized weakness and slurred speech. Patient is pleasant sitting up comfortably in bed. She remains alert and oriented x3 at time of assessment. She has no complaints denying chest pain, shortness a breath, palpitations, nausea/vomiting, abdominal pain, dizziness/lightheadedness, and tingling/numbness/weakness. Patient also has no UTI like symptoms denying dysuria, hematuria, burning sensation, or increased urgency/frequency. Discussed with patient that she continues to have elevated blood pressures which per chart review has been ongoing since 2023 that she has been started on a new medication of losartan. Patient agreeable with the medication. PT/OT recommending SNF placement, patient agreeable. Care coordination following. Review of Systems Review of Systems: All systems reviewed & are unremarkable except as noted in HPI and below Exam Narrative: AF HR 65 RR 17 Spo2 94 BP 131/63 General: female in no acute respiratory distress who is nontoxic appearing, sitting up in bed. HEENT: Normocephalic. Atraumatic. Pupils equal round reactive to light. Extraocular movement intact. Sclera clear and anicteric. No facial asymmetry. Chest: Lungs are clear to auscultation bilaterally. No wheezes or crackles. CV: Heart was regular rate and rhythm. Abd: Abdomen was soft. Nontender. Nondistended. Positive bowel sounds. Ext: No clubbing, cyanosis, or edema. DP pulses bilaterally. Slight left arm weakness with closed circuit screen watcher strength. Neuro: Patient is alert and oriented x3 (person, place, month). Cranial nerves 2-12 are intact. Speech is clear. Objective Data Vital Signs Vital Signs: Vital Signs - 24 hr 10/27/24 08:00 10/27/24 12:00 10/27/24 13:21 Temperature Pulse Rate 96 Respiratory Rate Blood Pressure Pulse Oximetry Oxygen Delivery Room Air CPAP 10/27/24 13:21 10/27/24 14:00 10/27/24 16:00 Temperature 97.6 F Pulse Rate 80 97 Respiratory Rate 17 Blood Pressure 148/68 H Pulse Oximetry 96 99 Oxygen Delivery Room Air 10/27/24 19:33 10/27/24 20:00 10/27/24 20:10 Temperature 98.4 F Pulse Rate 63 66 Respiratory Rate 17 Blood Pressure 150/67 H Pulse Oximetry 97 Oxygen Delivery Room Air 10/27/24 22:55 10/27/24 22:55 10/28/24 00:00 Temperature Pulse Rate 86 86 62 Respiratory Rate Blood Pressure Pulse Oximetry 94 94 Oxygen Delivery Room Air Room Air 10/28/24 02:25 10/28/24 04:00 10/28/24 04:27 Temperature 98.4 F Pulse Rate 56 L 72 Respiratory Rate 17 Blood Pressure 148/47 H Pulse Oximetry 94 Oxygen Delivery Room Air Intake/Output Intake/Output: Intake & Output 10/25/24 10/26/24 10/27/24 10/28/24 23:59 23:59 23:59 23:59 Intake Total 890 580 700 Output Total 350 450 200 200 Balance 540 130 500 -200 Meds/Results Medications: Active Medications Generic Name Dose Route Start Last Admin Trade Name Freq PRN Reason Stop Dose Admin Acetaminophen 650 mg 10/25/24 15:00 Acetaminophen 325 Mg Tablet PO Q6H PRN Mild Pain (1-3) or Fever Hydrocodone Bitart/Acetaminophen 1 tab 10/25/24 15:00 Hydrocodone/Acetaminophen (*Crx) 5-325 Mg Tablet PO Q6H PRN Pain Rated 4-6 Aspirin 81 mg 10/27/24 10:00 10/27/24 09:24 Aspirin 81 Mg Enteric Tablet PO 81 mg QAM PREMA Administration Atorvastatin Calcium 40 mg 10/27/24 10:00 10/27/24 09:24 Atorvastatin 40 Mg Tablet PO 40 mg DAILY PREMA Administration Cyanocobalamin 1,000 mcg 10/26/24 09:00 10/27/24 08:56 Cyanocobalamin 1,000 Mcg Tablet PO 1,000 mcg QAM PREMA Administration Donepezil HCl 5 mg 10/25/24 21:00 10/27/24 20:12 Donepezil Hcl 5 Mg Tablet PO 5 mg HS PREMA Administration Enoxaparin Sodium 40 mg 10/26/24 09:00 10/27/24 08:57 Enoxaparin 40 Mg/0.4 Ml Syringe SUB-Q 40 mg DAILY PREMA Administration Ceftriaxone Sodium 2 gm/ 100 mls @ 200 mls/hr 10/26/24 18:00 10/27/24 17:56 Sodium Chloride IVPB Infused Q24H PREMA Infusion Levothyroxine Sodium 125 mcg 10/26/24 06:30 10/28/24 06:15 Levothyroxine Sodium 125 Mcg Tablet PO 125 mcg DAILY@0630 PREMA Administration Losartan Potassium 25 mg 10/28/24 09:00 Losartan Potassium 25 Mg Tablet PO DAILY PREMA Ondansetron HCl 4 mg 10/25/24 14:33 Ondansetron Inj 4 Mg/2 Ml Vial IV PUSH Q4H PRN Nausea Perflutren Lipid Microsphere 0 ml 10/27/24 09:12 Perflutren Lipid Microspheres 1.5 Ml Vial Diluted To 10 Ml Total Volume IV PUSH 10/30/24 09:12 ONCE PRN adequate visualization Protocol Vitamin D 50 mcg 10/26/24 09:00 10/27/24 08:56 Cholecalciferol (Vitamin D3) 25 Mcg (1,000 Units) Tablet PO 50 mcg DAILY PREMA Administration Radiology Results: ITS Impressions Head CT 10/25/24 11:02 IMPRESSION: No evidence for acute intracranial hemorrhage or calvarial fracture. Chest X-Ray 10/25/24 11:03 IMPRESSION: 1. Mild increased initial pattern at the bilateral lower lung zones which could represent mild pulmonary edema, atelectasis or less likely pneumonia. Head/Neck CTA 10/25/24 11:55 IMPRESSION: 1. Calcified plaque in the cavernous portions of bilateral internal carotid arteries causing less than 50% stenosis. Otherwise, grossly unremarkable CTA of the head. 2. There is calcified plaque in the proximal left internal carotid artery causing approximately 60-70% stenosis. Consider an ultrasound of the carotid arteries for further assessment. 3. There is calcified plaque in the proximal right internal carotid artery causing approximately 50% stenosis. Consider an ultrasound the carotid arteries for further assessment. Findings as above. Labs Labs: Laboratory Results - last 24 hr 10/27/24 10/27/24 10/27/24 07:46 09:01 11:48 WBC 6.2 RBC 4.67 Hgb 12.8 Hct 40.6 MCV 86.9 MCH 27.4 MCHC 31.5 L RDW 15.2 H Plt Count 315 MPV 11.3 H Immature Gran % (Auto) 0.2 Neut % (Auto) 64.5 Lymph % (Auto) 22.8 Glenn % (Auto) 7.8 Eos % (Auto) 3.7 Baso % (Auto) 1.0 Lymph # (Auto) 1.41 [place] # (Auto) 0.5 Eos # (Auto) 0.2 Baso # (Auto) 0.1 Abs Immat Gran (auto) 0.01 Absolute Neuts (auto) 4.0 Absolute Nucleated RBC 0.000 Nucleated RBC % 0.0 Sodium 139 Potassium 3.6 Chloride 105 Carbon Dioxide 28 Anion Gap 6 BUN 8 Creatinine 1.06 H Estim Creat Clear Calc 40 Estimated GFR 50 L Glucose 112 H POC Capillary Glucose 99 96 Calcium 9.4 Total Bilirubin 0.3 AST 26 ALT 12 Alkaline Phosphatase 55 Total Protein 7.0 Albumin 3.3 L 10/27/24 10/27/24 10/28/24 16:41 19:30 04:17 WBC 6.2 RBC 4.43 Hgb 11.9 L Hct 38.5 MCV 86.9 MCH 26.9 MCHC 30.9 L RDW 15.1 H Plt Count 287 MPV 11.3 H Immature Gran % (Auto) 0.2 Neut % (Auto) 45.5 Lymph % (Auto) 37.6 [place] % (Auto) 9.0 H Eos % (Auto) 6.6 H Baso % (Auto) 1.1 Lymph # (Auto) 2.33 [place] # (Auto) 0.6 Eos # (Auto) 0.4 H Baso # (Auto) 0.1 Abs Immat Gran (auto) 0.01 Absolute Neuts (auto) 2.8 Absolute Nucleated RBC 0.000 Nucleated RBC % 0.0 Sodium 138 Potassium 3.8 Chloride 108 H Carbon Dioxide 25 Anion Gap 5 BUN 10 Creatinine 1.03 H Estim Creat Clear Calc 41 Estimated GFR 52 L Glucose 90 POC Capillary Glucose 111 H 96 Calcium 9.2 Total Bilirubin 0.2 AST 28 ALT 11 Alkaline Phosphatase 53 Total Protein 6.5 Albumin 3.0 L Quality VTE Prophylaxis VTE prophylaxis: pharmacologic ordered
[2024-10-28] MEDS: LOSARTAN POTASSIUM 25 MG TABLET PO (08:39)
[2024-10-28] MEDS: ATORVASTATIN 40 MG TABLET PO (08:39)
[2024-10-28] MEDS: ASPIRIN 81 MG ENTERIC TABLET PO (08:39)
[2024-10-28] MEDS: CHOLECALCIFEROL (VITAMIN D3) 25 MCG (1,000 UNITS) TABLET 50 MCG PO (08:39)
[2024-10-28] MEDS: ENOXAPARIN 40 MG/0.4 ML SYRINGE SUB-Q (08:39)
[2024-10-28] MEDS: CYANOCOBALAMIN 1,000 MCG TABLET 1000 MCG PO (08:39)
--- NOTE | 2024-10-28 12:30 | WPDNEUROPN ---
Progress Note: A&P Assessment and Plan (1) TIA (transient ischemic attack): Code(s): G45.9 - Transient cerebral ischemic attack, unspecified Status: Acute (2) DM type 2 (diabetes mellitus, type 2): Qualifiers: Diabetes mellitus senior care insulin use: unspecified senior care insulin use status Diabetes mellitus complication status: without complication Qualified Code(s): E11.9 - Type 2 diabetes mellitus without complications Code(s): E11.9 - Type 2 diabetes mellitus without complications Status: Chronic (3) Generalized weakness: Code(s): R53.1 - Weakness Status: Acute Plan Her CT scan of brain performed on this admission shows prominent ventricles and possible mild normal pressure hydrocephalus and generalized atrophy. Carotid Doppler study shows 50-69% narrowing in the left hand under 50% narrowing on the right side. She may have underlying peripheral neuropathy. There is also history of dementia and she is on Aricept. She may have some weakness in the left upper limb. I would suggest MRI of the brain if she was willing to cooperate. Her LDL was 145 on 08/06/2024. She is now on Aricept 10 mg a day and also on atorvastatin 40 mg a day. She is on aspirin 81 mg a day. I suspect that she may require appear rehab since he does not appear to be able to take care of herself particular since her is in rehab himself.. I will go ahead and order a vitamin B12 and vitamin-D and repeat lipid profile. We shall follow the results of these. Subjective Date/time seen: 10/28/24 12:30 Interval history: the patient is 79-year-old previously seen by Dr. Alonso with regards to difficulty with speech and generalized weakness. When I came to see her she was being evaluated by the physical therapist. She is unable to walk in a walker. She had to be transfer from bed to chair with specialized acute went used by the therapist. Patient has history of diabetes mellitus and history of falls. There is also history of dementia and she is on Aricept. Currently she is on aspirin, Plavix and Lipitor. Her is in rehab. Patient does not offer any history as such. Review of Systems Review of Systems: ROS unobtainable: Yes unobtainable due to mental status Exam Narrative: Fully conscious alert. No aphasia or dysarthria. She has mild weakness of the left upper limb. Difficult to evaluate her reliably since he does not cooperate very well. No significant abnormality of the deep tendon reflexes. She was able to tap with her both feet. Cranial nerves did not show any significant abnormalities. Objective Data Vital Signs Vital Signs: Vital Signs - 24 hr 10/27/24 13:21 10/27/24 13:21 10/27/24 14:00 Temperature 97.6 F Pulse Rate 80 Respiratory Rate 17 Blood Pressure 148/68 H Pulse Oximetry 96 99 Oxygen Delivery CPAP Room Air 10/27/24 16:00 10/27/24 19:33 10/27/24 20:00 Temperature 98.4 F Pulse Rate 97 63 66 Respiratory Rate 17 Blood Pressure 150/67 H Pulse Oximetry 97 Oxygen Delivery 10/27/24 20:10 10/27/24 22:55 10/27/24 22:55 Temperature Pulse Rate 86 86 Respiratory Rate Blood Pressure Pulse Oximetry 94 94 Oxygen Delivery Room Air Room Air Room Air 10/28/24 00:00 10/28/24 02:25 10/28/24 04:00 Temperature Pulse Rate 62 56 L Respiratory Rate Blood Pressure Pulse Oximetry Oxygen Delivery Room Air 10/28/24 04:27 10/28/24 08:00 10/28/24 08:00 Temperature 98.4 F Pulse Rate 72 70 Respiratory Rate 17 Blood Pressure 148/47 H Pulse Oximetry 94 Oxygen Delivery Room Air 10/28/24 08:38 Temperature Pulse Rate 65 Respiratory Rate Blood Pressure 131/63 Pulse Oximetry Oxygen Delivery Intake/Output Intake/Output: Intake & Output 10/25/24 10/26/24 10/27/24 10/28/24 23:59 23:59 23:59 23:59 Intake Total 890 580 700 120 Output Total 350 450 200 200 Balance 540 130 500 -80 Meds/Results Medications: Active Medications Generic Name Dose Route Start Last Admin Trade Name Freq PRN Reason Stop Dose Admin Acetaminophen 650 mg 10/25/24 15:00 Acetaminophen 325 Mg Tablet PO Q6H PRN Mild Pain (1-3) or Fever Hydrocodone Bitart/Acetaminophen 1 tab 10/25/24 15:00 Hydrocodone/Acetaminophen (*Crx) 5-325 Mg Tablet PO Q6H PRN Pain Rated 4-6 Amoxicillin/Clavulanate Potassium 1 tablet 10/28/24 09:00 10/28/24 08:39 Amoxicillin/Clavulanate K 875-125 Mg Tab PO 10/29/24 22:00 1 tablet Q12HR PREMA Administration Aspirin 81 mg 10/27/24 10:00 10/28/24 08:39 Aspirin 81 Mg Enteric Tablet PO 81 mg QAM PREMA Administration Atorvastatin Calcium 40 mg 10/27/24 10:00 10/28/24 08:39 Atorvastatin 40 Mg Tablet PO 40 mg DAILY PREMA Administration Cyanocobalamin 1,000 mcg 10/26/24 09:00 10/28/24 08:39 Cyanocobalamin 1,000 Mcg Tablet PO 1,000 mcg QAM PREMA Administration Donepezil HCl 5 mg 10/25/24 21:00 10/27/24 20:12 Donepezil Hcl 5 Mg Tablet PO 5 mg HS PREMA Administration Enoxaparin Sodium 40 mg 10/26/24 09:00 10/28/24 08:39 Enoxaparin 40 Mg/0.4 Ml Syringe SUB-Q 40 mg DAILY PREMA Administration Levothyroxine Sodium 125 mcg 10/26/24 06:30 10/28/24 06:15 Levothyroxine Sodium 125 Mcg Tablet PO 125 mcg DAILY@0630 PREMA Administration Losartan Potassium 25 mg 10/28/24 09:00 10/28/24 08:39 Losartan Potassium 25 Mg Tablet PO 25 mg DAILY PREMA Administration Ondansetron HCl 4 mg 10/25/24 14:33 Ondansetron Inj 4 Mg/2 Ml Vial IV PUSH Q4H PRN Nausea Perflutren Lipid Microsphere 0 ml 10/27/24 09:12 Perflutren Lipid Microspheres 1.5 Ml Vial Diluted To 10 Ml Total Volume IV PUSH 10/30/24 09:12 ONCE PRN adequate visualization Protocol Vitamin D 50 mcg 10/26/24 09:00 10/28/24 08:39 Cholecalciferol (Vitamin D3) 25 Mcg (1,000 Units) Tablet PO 50 mcg DAILY PREMA Administration Radiology Results: ITS Impressions Head CT 10/25/24 11:02 IMPRESSION: No evidence for acute intracranial hemorrhage or calvarial fracture. Chest X-Ray 10/25/24 11:03 IMPRESSION: 1. Mild increased initial pattern at the bilateral lower lung zones which could represent mild pulmonary edema, atelectasis or less likely pneumonia. Head/Neck CTA 10/25/24 11:55 IMPRESSION: 1. Calcified plaque in the cavernous portions of bilateral internal carotid arteries causing less than 50% stenosis. Otherwise, grossly unremarkable CTA of the head. 2. There is calcified plaque in the proximal left internal carotid artery causing approximately 60-70% stenosis. Consider an ultrasound of the carotid arteries for further assessment. 3. There is calcified plaque in the proximal right internal carotid artery causing approximately 50% stenosis. Consider an ultrasound the carotid arteries for further assessment. Findings as above. Labs Labs: Laboratory Results - last 24 hr 10/27/24 10/27/24 10/28/24 16:41 19:30 04:17 WBC 6.2 RBC 4.43 Hgb 11.9 L Hct 38.5 MCV 86.9 MCH 26.9 MCHC 30.9 L RDW 15.1 H Plt Count 287 MPV 11.3 H Immature Gran % (Auto) 0.2 Neut % (Auto) 45.5 Lymph % (Auto) 37.6 [place] % (Auto) 9.0 H Eos % (Auto) 6.6 H Baso % (Auto) 1.1 Lymph # (Auto) 2.33 [place] # (Auto) 0.6 Eos # (Auto) 0.4 H Baso # (Auto) 0.1 Abs Immat Gran (auto) 0.01 Absolute Neuts (auto) 2.8 Absolute Nucleated RBC 0.000 Nucleated RBC % 0.0 Sodium 138 Potassium 3.8 Chloride 108 H Carbon Dioxide 25 Anion Gap 5 BUN 10 Creatinine 1.03 H Estim Creat Clear Calc 41 Estimated GFR 52 L Glucose 90 POC Capillary Glucose 111 H 96 Calcium 9.2 Total Bilirubin 0.2 AST 28 ALT 11 Alkaline Phosphatase 53 Total Protein 6.5 Albumin 3.0 L 10/28/24 10/28/24 07:57 12:01 WBC RBC Hgb Hct MCV MCH MCHC RDW Plt Count MPV Immature Gran % (Auto) Neut % (Auto) Lymph % (Auto) [place] % (Auto) Eos % (Auto) Baso % (Auto) Lymph # (Auto) [place] # (Auto) Eos # (Auto) Baso # (Auto) Abs Immat Gran (auto) Absolute Neuts (auto) Absolute Nucleated RBC Nucleated RBC % Sodium Potassium Chloride Carbon Dioxide Anion Gap BUN Creatinine Estim Creat Clear Calc Estimated GFR Glucose POC Capillary Glucose 101 127 H Calcium Total Bilirubin AST ALT Alkaline Phosphatase Total Protein Albumin
[2024-10-28 14:15] LABS: Cholesterol 180 mg/dL (0-200); HDL Direct 31 mg/dL; Triglycerides 155 mg/dL (<150)
[2024-10-28 14:30] LABS: Hemoglobin A1C 5.7 % (<5.7)
[2024-10-28 14:46] LABS: Thyroid Stimulating Hormone 1.610 uIU/mL (0.465-4.680)
[2024-10-28 15:22] LABS: Vitamin B12 488.0 pg/mL (239-931)
[2024-10-28] MEDS: DONEPEZIL HCL 5 MG TABLET PO (20:11)
[2024-10-29] VITALS: PULSE 62
[2024-10-29 04:00] VITALS: PULSE 62
[2024-10-29 04:15] VITALS: BP 154/57; PULSE 69; RESP 12; TEMP 36.6; O2SAT 94
[2024-10-29] MEDS: LEVOTHYROXINE SODIUM 125 MCG TABLET PO (04:59)
[2024-10-29 05:05] LABS: Hematocrit 39.2 % (37.0-47.0); Hemoglobin 12.0 g/dL (12.0-15.0); Immature Granulocyte Percent A 0.3 % (0-0.5); Lymphocytes Absolute Auto 1.88 K/mm3 (0.9-3.2); Mean Corpuscular HGB Conc 30.6 g/dl (32-36); Mean Corpuscular Hemoglobin 26.5 pg (26-34); Mean Corpuscular Volume 86.5 fl (80-100); Nucleated Red Blood Cells Absolute Auto 0.000 K/mm3 (0.0-0.012); Nucleated Red Blood Cells Perc 0.0 % (0.0-0.2); Platelet Count Result 305 k/mm3 (150-375); Red Blood Count 4.53 M/mm3 (4.2-5.4); White Blood Count 6.7 K/mm3 (4.5-10.0)
[2024-10-29 05:23] LABS: Alanine Aminotransferase 10 U/L (6-35); Albumin Level 3.1 g/dL (3.5-5.1); Alkaline Phosphatase 54 U/L (38-126); Anion Gap 5 mmol/L (4-12); Aspartate Amino Transferase 24 U/L (14-36); Bilirubin,Total 0.3 mg/dL (0.2-1.3); Blood Urea Nitrogen 11 mg/dL (7-17); Calcium 9.1 mg/dL (8.4-10.2); Carbon Dioxide 25 mmol/L (22-30); Chloride 108 mmol/L (98-107); Estimated CRCL calculation 41 ml/min; Estimated Glomerular Filt Rate 52; Glucose 95 mg/dL (65-110); Potassium 3.8 mmol/L (3.4-5.0); Sodium 138 mmol/L (137-145); Total Protein 6.5 g/dL (6.3-8.2)
[2024-10-29 08:00] VITALS: PULSE 68
--- NOTE | 2024-10-29 08:16 | PM.IMPN ---
Progress Note: A&P Assessment and Plan (1) TIA (transient ischemic attack): Code(s): G45.9 - Transient cerebral ischemic attack, unspecified Status: Acute Assessment and Plan: Worsening generalized weakness over the last 1-2 weeks. UA suspicious for UTI, see above. Some concern for slurred speech, however patient denies and not well appreciated on exam. Does have a slow speech jailene. Trace left lower extremity weakness also noted, however patient reports this is her baseline. Patient additionally has a past medical history significant for normal pressure hydrocephalus. - Head CT: No evidence for acute intracranial hemorrhage or calvarial fracture. - Head/neck CTA: 1. Calcified plaque in the cavernous portions of bilateral internal carotid arteries causing less than 50% stenosis. Otherwise, grossly unremarkable CTA of the head. 2. There is calcified plaque in the proximal left internal carotid artery causing approximately 60-70% stenosis. Consider an ultrasound of the carotid arteries for further assessment. 3. There is calcified plaque in the proximal right internal carotid artery causing approximately 50% stenosis. Consider an ultrasound the carotid arteries for further assessment. - MRI, not obatined due to patient refusal - Echo obtained, read pending - Monitor CBC, CMP, magnesium, troponin, and lipid profile - Monitor blood pressure, allow for permissive hypertension. - Telemetry monitoring - Monitor blood glucose - PT/OT eval and treat recommending SNF placement, care coordination following - Neurology consulted, appreciate assistance and recommendations Discussed patient with neurology Dr. Alonso who agrees that given the stenosis of the bilateral proximal ICAs and the concern for TIA vs CVA will start on asa and high intensity statin. Per Dr. Alonso no plavix is needed at this time. Patient is adamant that she does not want a MRI at this time as she have severe claustrophobia. Discussed with patient that we can give an antianxiety medication prior to the imaging to help with anxiety related to the imaging. She continues to refuse. Neurology made aware that patient does not wish to have MRI completed. 10/28: Neurology continues to recommend an MRI. Again rediscussed with patient and she again refuses due to claustrophobia. (2) UTI (urinary tract infection): Qualifiers: Hematuria presence: without hematuria Urinary tract infection type: site unspecified Qualified Code(s): N39.0 - Urinary tract infection, site not specified Code(s): N39.0 - Urinary tract infection, site not specified Status: Resolved Assessment and Plan: - UA: Turbid, 1+ blood, positive nitrates, 3+ leuk esterase, greater than 100 WBC, 4+ bacteria and many epithelial cells. Infection versus contamination, given worsening weakness presumed infectious. - UC final: negative - previous micro reviewed Proteus mirabilis with moderate amount of resistances in October of 2023 ESBL in July 01, May 31 and April 02 - started on Ceftriaxone in the ED, transitioned to Meropenem due to ESBL hx h/o ESBL but while back- longer than 3-6 months, will switch back to Ceftriaxone and monitor for UA culture Despite UC negative, since patient was endorsing dysuria and burning will still treat for a UTI to complete the course. Patient transitioned from Rocephin to Augmentin on 10/28, course to be completed on 10/29. (3) Chronic kidney disease, stage 3: Code(s): N18.30 - Chronic kidney disease, stage 3 unspecified Status: Chronic Assessment and Plan: - creatinine 1.08, BUN 12, GFR 49 upon admission - baseline creatinine: 0.9-1.2, has fluctuated significantly over the last year - trend renal function and electrolytes, correct as needed - renally dose medications - monitor I/O - avoid nephrotoxic medications Renal function remains at baseline. (4) Essential hypertension: Code(s): I10 - Essential (primary) hypertension Status: Acute Assessment and Plan: - chronic, not currently on a daily antihypertensive - per chart review patient has been hypertensive since 2023 - started on losartan 25 mg daily - blood pressure remains stable, continue to monitor reviewed- overall elevated- moniotre for now and increase losartan if needed (5) PHYLICIA on CPAP: Code(s): G47.33 - Obstructive sleep apnea (adult) (pediatric) Status: Chronic Assessment and Plan: - continue home CPAP Time Spent With Patient Time with patient: 25 - 35 minutes Subjective Date/time seen: 10/29/24 08:16 Interval history: 79 y/o F with PMH of dementia, CKD, diastolic CHF, PVD, DM2, aortic stenosis, hypothyroidism, HLD, HTN, and PHYLICIA on CPAP presents here with generalized weakness and slurred speech. Patient is pleasant sitting up comfortably in bed. She remains alert and oriented x3 at time of assessment. She has no complaints denying chest pain, shortness a breath, palpitations, nausea/vomiting, abdominal pain, dizziness/lightheadedness, and tingling/numbness/weakness. Patient also has no UTI like symptoms denying dysuria, hematuria, burning sensation, or increased urgency/frequency. Discussed with patient that she continues to have elevated blood pressures which per chart review has been ongoing since 2023 that she has been started on a new medication of losartan. Patient agreeable with the medication. PT/OT recommending SNF placement, patient agreeable. Care coordination following. 10/29- assuming care. pt is seen and examined. Review of Systems Review of Systems: All systems reviewed & are unremarkable except as noted in HPI and below Exam Narrative: AF HR 65 RR 17 Spo2 94 BP 131/63 General: female in no acute respiratory distress who is nontoxic appearing, sitting up in bed. HEENT: Normocephalic. Atraumatic. Pupils equal round reactive to light. Extraocular movement intact. Sclera clear and anicteric. No facial asymmetry. Chest: Lungs are clear to auscultation bilaterally. No wheezes or crackles. CV: Heart was regular rate and rhythm. Abd: Abdomen was soft. Nontender. Nondistended. Positive bowel sounds. Ext: No clubbing, cyanosis, or edema. DP pulses bilaterally. Slight left arm weakness with box finisher strength. Neuro: Patient is alert and oriented x3 (person, place, month). Cranial nerves 2-12 are intact. Speech is clear. Const: General: comfortable and no acute distress Other: , female, elderly, chronically ill-appearing HENMT: Face/Nose/Sinus: Normal nares present Mouth: Yes moist mucous membranes Eyes: General: appearance normal, both eyes and all related structures Sclera: sclerae normal Pupils: Equal, round and reactive pupils present EOM: EOMs intact bilaterally Resp: Effort & Inspection: normal respiratory effort Auscultation: clear to auscultation bilaterally Cardio: Rate: regular rate Rhythm: regular rhythm Other: S1-S2 present without murmur, rub, ectopy GI: Other: Abdomen soft, nondistended, nontender. Normoactive bowel sounds in all quadrants. Skin: General skin exam: normal color and no rashes or lesions noted Wounds: no wounds Neuro: Cranial nerves: Yes Equal, round and reactive pupils present Other: Patient has a slow speech jailene, slurring not appreciated. Patient reports this is her baseline. No sensory deficits. Plus five in bilateral upper extremities and the right lower extremity. Trace weakness in the left lower extremity which she reports is her baseline. A&O x3 Extrem: General: normal to inspection Psych: Mental Status: mental status grossly normal Affect: normal affect Other: Fair insight and judgment, pleasant Objective Data Vital Signs Vital Signs: Vital Signs - 24 hr 10/28/24 08:38 10/28/24 14:00 10/28/24 16:00 Temperature 98.2 F Pulse Rate 65 68 75 Respiratory Rate 16 Blood Pressure 131/63 128/60 Pulse Oximetry 99 Oxygen Delivery 10/28/24 20:00 10/28/24 20:00 10/28/24 20:02 Temperature 98.0 F Pulse Rate 62 62 62 Respiratory Rate 12 12 Blood Pressure 183/55 H Pulse Oximetry 100 100 Oxygen Delivery Room Air 10/28/24 20:05 10/29/24 00:00 10/29/24 04:00 Temperature Pulse Rate 60 62 62 Respiratory Rate Blood Pressure Pulse Oximetry Oxygen Delivery 10/29/24 04:15 Temperature 97.9 F Pulse Rate 69 Respiratory Rate 12 Blood Pressure 154/57 H Pulse Oximetry 94 Oxygen Delivery Intake/Output Intake/Output: Intake & Output 10/26/24 10/27/24 10/28/24 10/29/24 23:59 23:59 23:59 23:59 Intake Total 580 700 582 200 Output Total 450 200 215 300 Balance 130 500 367 -100 Meds/Results Medications: Active Medications Generic Name Dose Route Start Last Admin Trade Name Freq PRN Reason Stop Dose Admin Acetaminophen 650 mg 10/25/24 15:00 Acetaminophen 325 Mg Tablet PO Q6H PRN Mild Pain (1-3) or Fever Hydrocodone Bitart/Acetaminophen 1 tab 10/25/24 15:00 Hydrocodone/Acetaminophen (*Crx) 5-325 Mg Tablet PO Q6H PRN Pain Rated 4-6 Amoxicillin/Clavulanate Potassium 1 tablet 10/28/24 09:00 10/28/24 20:11 Amoxicillin/Clavulanate K 875-125 Mg Tab PO 10/29/24 22:00 1 tablet Q12HR PREMA Administration Aspirin 81 mg 10/27/24 10:00 10/28/24 08:39 Aspirin 81 Mg Enteric Tablet PO 81 mg QAM PREMA Administration Atorvastatin Calcium 40 mg 10/27/24 10:00 10/28/24 08:39 Atorvastatin 40 Mg Tablet PO 40 mg DAILY PREMA Administration Cyanocobalamin 1,000 mcg 10/26/24 09:00 10/28/24 08:39 Cyanocobalamin 1,000 Mcg Tablet PO 1,000 mcg QAM PREMA Administration Donepezil HCl 5 mg 10/25/24 21:00 10/28/24 20:11 Donepezil Hcl 5 Mg Tablet PO 5 mg HS PREMA Administration Enoxaparin Sodium 40 mg 10/26/24 09:00 10/28/24 08:39 Enoxaparin 40 Mg/0.4 Ml Syringe SUB-Q 40 mg DAILY PREMA Administration Levothyroxine Sodium 125 mcg 10/26/24 06:30 10/29/24 04:59 Levothyroxine Sodium 125 Mcg Tablet PO 125 mcg DAILY@0630 PREMA Administration Losartan Potassium 25 mg 10/28/24 09:00 10/28/24 08:39 Losartan Potassium 25 Mg Tablet PO 25 mg DAILY PREMA Administration Ondansetron HCl 4 mg 10/25/24 14:33 Ondansetron Inj 4 Mg/2 Ml Vial IV PUSH Q4H PRN Nausea Perflutren Lipid Microsphere 0 ml 10/27/24 09:12 Perflutren Lipid Microspheres 1.5 Ml Vial Diluted To 10 Ml Total Volume IV PUSH 10/30/24 09:12 ONCE PRN adequate visualization Protocol Vitamin D 50 mcg 10/26/24 09:00 10/28/24 08:39 Cholecalciferol (Vitamin D3) 25 Mcg (1,000 Units) Tablet PO 50 mcg DAILY PREMA Administration Radiology Results: ITS Impressions Head CT 10/25/24 11:02 IMPRESSION: No evidence for acute intracranial hemorrhage or calvarial fracture. Chest X-Ray 10/25/24 11:03 IMPRESSION: 1. Mild increased initial pattern at the bilateral lower lung zones which could represent mild pulmonary edema, atelectasis or less likely pneumonia. Head/Neck CTA 10/25/24 11:55 IMPRESSION: 1. Calcified plaque in the cavernous portions of bilateral internal carotid arteries causing less than 50% stenosis. Otherwise, grossly unremarkable CTA of the head. 2. There is calcified plaque in the proximal left internal carotid artery causing approximately 60-70% stenosis. Consider an ultrasound of the carotid arteries for further assessment. 3. There is calcified plaque in the proximal right internal carotid artery causing approximately 50% stenosis. Consider an ultrasound the carotid arteries for further assessment. Findings as above. Labs Labs: Laboratory Results - last 24 hr 10/28/24 10/28/24 10/28/24 04:17 12:01 16:52 WBC RBC Hgb Hct MCV MCH MCHC RDW Plt Count MPV Immature Gran % (Auto) Neut % (Auto) Lymph % (Auto) [place] % (Auto) Eos % (Auto) Baso % (Auto) Lymph # (Auto) [place] # (Auto) Eos # (Auto) Baso # (Auto) Abs Immat Gran (auto) Absolute Neuts (auto) Absolute Nucleated RBC Nucleated RBC % Sodium Potassium Chloride Carbon Dioxide Anion Gap BUN Creatinine Estim Creat Clear Calc Estimated GFR Glucose POC Capillary Glucose 127 H 115 H Hemoglobin A1c 5.7 Calcium Total Bilirubin AST ALT Alkaline Phosphatase Total Protein Albumin Triglycerides 155 H Cholesterol 180 LDL Cholesterol Direct 121 HDL Direct 31 Vitamin B12 488.0 Vitamin D 25-Hydroxy 39.7 Folate 3.4 TSH 1.610 10/28/24 10/29/24 10/29/24 19:59 04:11 08:05 WBC 6.7 RBC 4.53 Hgb 12.0 Hct 39.2 MCV 86.5 MCH 26.5 MCHC 30.6 L RDW 15.2 H Plt Count 305 MPV 11.3 H Immature Gran % (Auto) 0.3 Neut % (Auto) 57.6 Lymph % (Auto) 28.1 [place] % (Auto) 7.9 Eos % (Auto) 5.4 H Baso % (Auto) 0.7 Lymph # (Auto) 1.88 [place] # (Auto) 0.5 Eos # (Auto) 0.4 H Baso # (Auto) 0.1 Abs Immat Gran (auto) 0.02 Absolute Neuts (auto) 3.9 Absolute Nucleated RBC 0.000 Nucleated RBC % 0.0 Sodium 138 Potassium 3.8 Chloride 108 H Carbon Dioxide 25 Anion Gap 5 BUN 11 Creatinine 1.03 H Estim Creat Clear Calc 41 Estimated GFR 52 L Glucose 95 POC Capillary Glucose 107 H 93 Hemoglobin A1c Calcium 9.1 Total Bilirubin 0.3 AST 24 ALT 10 Alkaline Phosphatase 54 Total Protein 6.5 Albumin 3.1 L Triglycerides Cholesterol LDL Cholesterol Direct HDL Direct Vitamin B12 Vitamin D 25-Hydroxy Folate TSH Quality VTE Prophylaxis VTE prophylaxis: pharmacologic ordered
[2024-10-29] MEDS: ASPIRIN 81 MG ENTERIC TABLET PO (09:07)
[2024-10-29] MEDS: LOSARTAN POTASSIUM 25 MG TABLET PO (09:08)
--- NOTE | 2024-10-29 09:57 | PC.NURSE ---
During medication administration this morning patient wanted to refuse all medications. RN told patient she has the right, but taught patient the risks of not taking the medications. Patient's family member bedside encouraged patient to take a couple of the medications and patient ended up taking 3. RN then clarified patient wanted to be a full code, but patient did not want that. DEEPTHI Vega brought RN Valdo where patient decided medications only for a modified code status. Hospitalist Patricia has been updated.
--- NOTE | 2024-10-29 11:59 | PM.DS ---
DS: Admitting Diagnosis Discharge Date 10/29 Admitting Diagnosis slurred speech DS: Discharge Diagnosis Discharge Diagnosis (1) TIA (transient ischemic attack): Code(s): G45.9 - Transient cerebral ischemic attack, unspecified Status: Acute (2) UTI (urinary tract infection): Qualifiers: Urinary tract infection type: site unspecified Hematuria presence: without hematuria Qualified Code(s): N39.0 - Urinary tract infection, site not specified Code(s): N39.0 - Urinary tract infection, site not specified Status: Resolved (3) Chronic kidney disease, stage 3: Code(s): N18.30 - Chronic kidney disease, stage 3 unspecified Status: Chronic (4) Essential hypertension: Code(s): I10 - Essential (primary) hypertension Status: Acute (5) PHYLICIA on CPAP: Code(s): G47.33 - Obstructive sleep apnea (adult) (pediatric) Status: Chronic DS: Summary Hospital Course Hospital Course: 79 y/o F with PMH of dementia, CKD, diastolic CHF, PVD, DM2, aortic stenosis, hypothyroidism, HLD, HTN, and PHYLICIA on CPAP presents here with generalized weakness and slurred speech. # MRI Worsening generalized weakness over the last 1-2 weeks. UA suspicious for UTI, see above. Some concern for slurred speech, however patient denies and not well appreciated on exam. Does have a slow speech jailene. Trace left lower extremity weakness also noted, however patient reports this is her baseline. Patient additionally has a past medical history significant for normal pressure hydrocephalus. - Head CT: No evidence for acute intracranial hemorrhage or calvarial fracture. - Head/neck CTA: 1. Calcified plaque in the cavernous portions of bilateral internal carotid arteries causing less than 50% stenosis. Otherwise, grossly unremarkable CTA of the head. 2. There is calcified plaque in the proximal left internal carotid artery causing approximately 60-70% stenosis. Consider an ultrasound of the carotid arteries for further assessment. 3. There is calcified plaque in the proximal right internal carotid artery causing approximately 50% stenosis. Consider an ultrasound the carotid arteries for further assessment. - MRI, not obtained due to patient refusal - PT/OT eval and treat recommending SNF placement, care coordination following - Neurology consulted, appreciate assistance and recommendations Discussed patient with neurology Dr. Alonso who agrees that given the stenosis of the bilateral proximal ICAs and the concern for TIA vs CVA will start on asa and high intensity statin. Per Dr. Alonso no plavix is needed at this time. Patient is adamant that she does not want a MRI at this time as she have severe claustrophobia. Discussed with patient that we can give an antianxiety medication prior to the imaging to help with anxiety related to the imaging. She continues to refuse. Neurology made aware that patient does not wish to have MRI completed. 10/28: Neurology continues to recommend an MRI. Again rediscussed with patient and she again refuses due to claustrophobia. Pt discussed code status with nursing- she wishes to be DNR-meds only. # UTI UA: Turbid, 1+ blood, positive nitrates, 3+ leuk esterase, greater than 100 WBC, 4+ bacteria and many epithelial cells. Infection versus contamination, given worsening weakness presumed infectious. - UC final: negative - previous micro reviewed Proteus mirabilis with moderate amount of resistances in October of 2023 ESBL in July 01, May 31 and April 02 - started on Ceftriaxone in the ED, transitioned to Meropenem due to ESBL hx h/o ESBL but while back- longer than 3-6 months, will switch back to Ceftriaxone and monitor for UA culture Despite UC negative, since patient was endorsing dysuria and burning will still treat for a UTI to complete the course. Patient transitioned from Rocephin to Augmentin on 10/28, course to be completed on 10/29. #CKD creatinine 1.08, BUN 12, GFR 49 upon admission- stabilized and Renal function remains at baseline. # HTN - chronic, not currently on a daily antihypertensive - per chart review patient has been hypertensive since 2023 - started on losartan 25 mg daily- will continue Status at Discharge Functional status at discharge: uses cane/walker Overall status at discharge: patient is progressing back to baseline Time Spent with Patient Time attestation: Total time spent providing and/or coordinating discharge services: Time spent: Greater than 30 minutes Exam Narrative: General: female in no acute respiratory distress who is nontoxic appearing, sitting up in bed. HEENT: Normocephalic. Atraumatic. Pupils equal round reactive to light. Extraocular movement intact. Sclera clear and anicteric. No facial asymmetry. Chest: Lungs are clear to auscultation bilaterally. No wheezes or crackles. CV: Heart was regular rate and rhythm. Abd: Abdomen was soft. Nontender. Nondistended. Positive bowel sounds. Ext: No clubbing, cyanosis, or edema. DP pulses bilaterally. Slight left arm weakness with pvc monitor strength. Neuro: Patient is alert and oriented x3 (person, place, month). Cranial nerves 2-12 are intact. Speech is clear. Const: General: comfortable and no acute distress Other: , female, elderly, chronically ill-appearing HENMT: Face/Nose/Sinus: Normal nares present Mouth: Yes moist mucous membranes Eyes: General: appearance normal, both eyes and all related structures Sclera: sclerae normal Pupils: Equal, round and reactive pupils present EOM: EOMs intact bilaterally Resp: Effort & Inspection: normal respiratory effort Auscultation: clear to auscultation bilaterally Cardio: Rate: regular rate Rhythm: regular rhythm Other: S1-S2 present without murmur, rub, ectopy GI: Other: Abdomen soft, nondistended, nontender. Normoactive bowel sounds in all quadrants. Skin: General skin exam: normal color and no rashes or lesions noted Wounds: no wounds Neuro: Cranial nerves: Yes Equal, round and reactive pupils present Other: Patient has a slow speech jailene, slurring not appreciated. Patient reports this is her baseline. No sensory deficits. Plus five in bilateral upper extremities and the right lower extremity. Trace weakness in the left lower extremity which she reports is her baseline. A&O x3 Extrem: General: normal to inspection Psych: Mental Status: mental status grossly normal Affect: normal affect Other: Fair insight and judgment, pleasant DS: Data Data Completed and Pending Labs on day of discharge: Labs from last 24 hours 10/29/24 10/29/24 10/28/24 08:05 04:11 19:59 WBC 6.7 RBC 4.53 Hgb 12.0 Hct 39.2 MCV 86.5 MCH 26.5 MCHC 30.6 L RDW 15.2 H Plt Count 305 MPV 11.3 H Immature Gran % (Auto) 0.3 Neut % (Auto) 57.6 Lymph % (Auto) 28.1 [place] % (Auto) 7.9 Eos % (Auto) 5.4 H Baso % (Auto) 0.7 Lymph # (Auto) 1.88 [place] # (Auto) 0.5 Eos # (Auto) 0.4 H Baso # (Auto) 0.1 Abs Immat Gran (auto) 0.02 Absolute Neuts (auto) 3.9 Absolute Nucleated RBC 0.000 Nucleated RBC % 0.0 Sodium 138 Potassium 3.8 Chloride 108 H Carbon Dioxide 25 Anion Gap 5 BUN 11 Creatinine 1.03 H Estim Creat Clear Calc 41 Estimated GFR 52 L Glucose 95 POC Capillary Glucose 93 107 H Hemoglobin A1c Calcium 9.1 Total Bilirubin 0.3 AST 24 ALT 10 Alkaline Phosphatase 54 Total Protein 6.5 Albumin 3.1 L Triglycerides Cholesterol LDL Cholesterol Direct HDL Direct Vitamin B12 Methylmalonic Acid Vitamin D 25-Hydroxy Folate TSH 10/28/24 10/28/24 10/28/24 16:52 12:01 04:17 WBC RBC Hgb Hct MCV MCH MCHC RDW Plt Count MPV Immature Gran % (Auto) Neut % (Auto) Lymph % (Auto) [place] % (Auto) Eos % (Auto) Baso % (Auto) Lymph # (Auto) [place] # (Auto) Eos # (Auto) Baso # (Auto) Abs Immat Gran (auto) Absolute Neuts (auto) Absolute Nucleated RBC Nucleated RBC % Sodium Potassium Chloride Carbon Dioxide Anion Gap BUN Creatinine Estim Creat Clear Calc Estimated GFR Glucose POC Capillary Glucose 115 H 127 H Hemoglobin A1c 5.7 Calcium Total Bilirubin AST ALT Alkaline Phosphatase Total Protein Albumin Triglycerides 155 H Cholesterol 180 LDL Cholesterol Direct 121 HDL Direct 31 Vitamin B12 488.0 Methylmalonic Acid Pending Vitamin D 25-Hydroxy 39.7 Folate 3.4 TSH 1.610 Discharge Plan Discharge Attending physician on discharge: Sarah Crowell Consulting providers: Kiko Cade; Jenelle Cueva Discharging Clinician: Patricia Velasquez Patient Disposition: SNF Activity: may shower Diet: regular Discharge Instructions: Please f/u with pcp and neurology. take cholesterol med that was prescribed for you and aspirin. You were started on losartan as your BP was consistnently elevated. Patient Language: Frisian Stand Alone Forms: General Discharge Information Follow-up/Referrals: Anton Silva MD [Primary Care Provider, Internal Medicine] - 2 Weeks Kiko Cade MD [Physician, Neurology] - 2 Weeks Discharge Medications: New atorvastatin 40 mg Tablet 40 mg PO DAILY Qty: 9 0RF losartan 25 mg Tablet 25 mg PO DAILY Qty: 90 0RF aspirin 81 mg Tablet,Delayed Release (Dr/Ec) 81 mg PO QAM Qty: 90 0RF Continued cyanocobalamin (vitamin B-12) [Vitamin B-12] 1,000 mcg Tablet 1,000 mcg PO QAM Qty: 30 0RF cholecalciferol (vitamin D3) 50 mcg (2,000 unit) capsule 50 mcg PO DAILY levothyroxine [Synthroid] 125 mcg tablet 125 mcg PO DAILY@0630 Qty: 90 0RF donepezil [Aricept] 5 mg tablet 5 mg PO HS Qty: 90 0RF Date of admission: 10/26/24 15:39 Primary Care Provider: Anton Silva Admitting Provider: Tulio Gallo Attending physician on admission: Tulio Gallo Condition: Stable Quality VTE Prophylaxis VTE prophylaxis: pharmacologic ordered Hospitalist MIPS Heart Failure (Exclusion) Patient has history of Heart Transplant or Left Ventricular Assistive Device?: No IF YES, STOP HERE Heart Failure (Qualifier) Patient has current or prior documentation of LVEF less than or equal to 40%, or mod/servere depressed LVSF?: No IF NO, STOP HERE
[2024-10-29 12:00] VITALS: PULSE 81
== END 2024-10-29 14:14 | DRG 69 ==
LOC: ANHED 11:21 → ANH2MED 15:31
PROVIDERS: Psychiatry & Neurology Neurology; Student in an Organized Health Care Education/Training Program; Admitting Provider General Practice; Emergency Provider General Practice; PCP Internal Medicine; Visit Provider Internal Medicine
DX: G45.9 Transient cerebral ischemic attack, unspecified (principal); N39.0 Urinary tract infection, site not specified; I13.0 Hypertensive heart and chronic kidney disease with heart failure and stage 1 through stage 4 chronic kidney disease, or unspecified chronic kidney disease; I50.32 Chronic diastolic (congestive) heart failure; E11.22 Type 2 diabetes mellitus with diabetic chronic kidney disease; N18.31 Chronic kidney disease, stage 3a; B96.4 Proteus (mirabilis) (morganii) as the cause of diseases classified elsewhere; G47.33 Obstructive sleep apnea (adult) (pediatric); I73.9 Peripheral vascular disease, unspecified; F40.240 Claustrophobia; F03.90 Unspecified dementia, unspecified severity, without behavioral disturbance, psychotic disturbance, mood disturbance, and anxiety; I35.0 Nonrheumatic aortic (valve) stenosis; E11.42 Type 2 diabetes mellitus with diabetic polyneuropathy; E78.5 Hyperlipidemia, unspecified; E03.9 Hypothyroidism, unspecified; E53.8 Deficiency of other specified B group vitamins; Z86.69 Personal history of other diseases of the nervous system and sense organs; Z66 Do not resuscitate
CPT/HCPCS: 36415; 70450; 70496; 70498; 71045; 80053; 80061; 81001; 82306; 82607; 82746; 82948; 83036; 83921; 84443; 84484; 85025; 85610; 85730; 87086; 92610; 93005; 93306; 96365; 96367; 96372; 96375; 96376; 97110; 97162; 97166; 97530; 97535; 99285; A9270; G0378; J0696; J1650; J2185; J7030; Q9967

== ENCOUNTER 2024-11-29 14:42 | Outpatient (CLI) | payer MEDICARE, SELFPAY ==
--- NOTE | ~2024-11-29 | US_ITS ---
EXAMINATION:US venous doppler LE BI INDICATION:Edema. TECHNIQUE: Multiple grayscale, color flow and Doppler images of the right lower extremity deep venous systems were obtained and reviewed. COMPARISON:No prior studies for comparison. FINDINGS: The common femoral, superficial femoral and popliteal veins demonstrate normal respiratory variation, augmentation and compressibility. Color flow is also seen within the posterior tibial, peroneal, greater saphenous and profunda veins. IMPRESSION: 1: No lower extremity deep venous thrombosis. Reviewed, dictated and finalized at location O.
--- OUTSIDE RECORDS SUMMARY | 2024-11-29 15:03 | XMS_ITS | Patient Health Record ---
Author Organization [facility] Address [address] [address] Care Team Providers Care Care Transition Mgr Name Role Phone Racheal Avelar MD Primary Care Provider Unavail able Walter Sousa Unavailable [phone] Allergies Allergen (clinical drug ingredient) Drug/Non Drug [...] Hyperglycemia due to type 2 diabetes mellitus (061158115957786) Type 2 diabetes mellitus with hyperglycemia (E11.65) Active confirmed Problem Mixed hyperlipidemia (031735605) Mixed hyperlipidemia (E78.2) Active confirmed Problem Polyneuropathy due to type 2 diabetes mellitus (175448914) Type 2 diabetes mellitus with diabetic polyneuropathy (E11.42) Active confirmed Problem Essential hypertension (91737647) Essential (primary) hypertension (I10) Active confirmed Problem Morbid obesity (disorder) (596720757) Morbid (severe) obesity due to excess calories (E66.01) Active confirmed Problem Dietary management surveillance (964254814) Dietary counseling and surveillance (Z71.3) Active confirmed Problem Hypothyroidism following radioiodine therapy (41687459) 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
--- OUTSIDE RECORDS SUMMARY | 2024-11-29 15:03 | XMS_ITS | Encounter Summary ---
Author Organization [facility] Address [facility] [place] [address] Care Team Providers Care Permit Review Assistant Name Role Phone Racheal Avelar MD Primary Care Provider + [phone] Abdiel Santamaria MD Unavailable [phone] Cisco Salcido MD Primary Care Provider [phone] Anton Silva MD Primary Care Provider [phone] Encounter Details Date Type Department Care Team (Late st Contact Info) Description 10/26/2018 Prep for Procedure [facility] Day [facility] [address] [place] [address] Taz Garduno MD [address] [place] [address] Social History Tobacco Use Types Packs/Day Years [...] as of this encounter Plan of Treatment Not on file documented as of this encounter Visit Diagnoses Diagnosis Preop testing- Primary Preoperative examination, unspecified documented in this encounter Additional Health Concerns Infection Onset Date Last Indicated Resolved Time MRSA Comment:7/29/19- positive MRSA screen 10/12/2018 10/12/2018 ESBL - Extended Spectrum Bet a-lactamase Comment:10/11/21 urine (JK) 10/18/22 urine (JK) 10/13/2021 10/18/2022 documented as of this encounter Care Teams Permit Review Assistant Relationship Specialty Start Date End Date Racheal Avelar MD PCP - General INTERNAL MEDICINE 12/17/17 04/29/22 [place] [address] [place] [address] PCP - General FAMILY PRACTICE 04/30/22 12/25/22 Anton Silva MD [address] [place] [address] PCP - General INTERNAL MEDICINE 01/01/24 Abdiel Santamaria MD [facility] [address] [place] [address] Melinda Finish Mill Operator INTERVENTIONAL CARDIOLOGY 10/08/18 documented as of this encounter
--- OUTSIDE RECORDS SUMMARY | 2024-11-29 15:03 | XMS_ITS | Encounter Summary ---
Author Organization [facility] Address [facility] [place] [address] Care Team Providers Care Network Technician Name Role Phone Racheal Avelar MD Primary Care Provider + [phone] Abdiel Santamaria MD Unavailable [phone] Cisco Salcido MD Primary Care Provider [phone] Anton Silva MD Primary Care Provider [phone] Encounter Details Date Type Department Care Team (Late st Contact Info) Description 10/01/2018 Prep for Procedure [facility] Day Services [address] [address] Taz Kelley MD [address] [place] [address] Social History Tobacco Use Types [...] on file documented as of this encounter Results * ECG 12 lead (10/05/2018 2:01 PM CDT) 10/05/2018 2:01 PM CDT Narrative [facility] RAD - 10/05/2018 6:[address] 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1945 Requested By: TAZ KELLEY Order Number: [id number] Reading MD: Zeeshan Avelar Measurements Intervals [place] Rate: 81 P: 52 KS: 171 QRS: 96 QRSD: 109 T: 47 QT: 412 QTc: 478 Interpretive Statements SINUS RHYTHM WITH SINUS ARRHYTHMIA BORDERLINE RIGHT AXIS DEVIATION LOW QRS VOLTAGE IN PRECORDIAL LEADS MINIMAL ST DEPRESSION Compared to ECG 11/09/2015 18:04:40 Low QRS voltage now present ST (T wave) deviation now present Myocardial infarct finding no longer present us Taz Kelley MD ECG ORDERABLES Final Resul t [facility] RAD * (ABNORMAL) URINALYSIS WI REFLEX TO CULTURE (10/05/2018 1:37 PM CDT) COLOR (U) YELLOW 10/05/2018 2:[address] [facility] TRANSPARENCY CLEAR 10/05/2018 2:[address] [facility] SPECIFIC GRAVITY (U) 1.015 1.000 - 1.030 10/05/2018 2:[address] [facility] U PH 5.5 5.0 - 9.0 10/05/2018 2:[address] [facility] LEUKOCYTES (U) 1+(A) NEGATIVE 10/05/2018 2:[address] [facility] NITRITES NEGATIVE NEGATIVE 10/05/2018 2:[address] [facility] PROTEIN (U) NEGATIVE NEGATIVE 10/05/2018 2:[address] [facility] URINE GLUCOSE NEGATIVE NEGATIVE 10/05/2018 2:[address] [facility] KETONES MG/DL (U) NEGATIVE NEGATIVE 10/05/2018 2:[address] [facility] BILIRUBIN (U) NEGATIVE NEGATIVE 10/05/2018 2:[address] [facility] BLOOD (U) NEGATIVE NEGATIVE 10/05/2018 2:[address] [facility] WBC/HPF 0-5 0 - 5 /HPF 10/05/2018 2:[address] [facility] RBC/HPF NONE SEEN 0 - 5 /HPF 10/05/2018 2:[address] [facility] EPI/HPF MODERATE /HPF 10/05/2018 2:13 PM [facility] CULTURE & SENSITIVITY INDICATED? SPECIMEN SETUP FOR CULTURE 10/05/2018 2:[address] [facility] BACTERIA (U) FEW /HPF 10/05/2018 2:[address] [facility] URINE SPECIMEN OBTAINED BY CLEAN CATCH PROCEDURE / Unknown 10/05/2018 1:37 PM CDT us Taz Kelley MD URINE ORDERABLES Final Resu lt Performing Organization Address [facility] Co de Phone Number [facility] [address] [place] [address], [place] [phone] * TYPE & SCREEN (10/05/2018 1:37 PM CDT) ABO/RH B NEGATIVE 10/05/2018 2:[address] [facility] ANTIBODY SCREEN NEGATIVE 2:[address] [facility] SAMPLE EXPIRATION 10/15/2018 10/05/2018 2:[address] [facility] 10/05/2018 1:37 PM CDT us Taz Kelley MD BLOOD BANK TEST ORDERABLES Final Result Performing Organization Address [facility] de Phone Number [facility] [address] [place] [address], [place] [phone] * (ABNORMAL) MRSA SCREENING (10/05/2018 1:37 PM CDT) SPEC DESCRIPTION NASAL 10/05/2018 1:[address] [facility] SPECIAL REQUESTS NO SPECIAL REQUEST 10/05/2018 1:[address] [facility] CULTURE RESULT POSITIVE METHICILLIN RESISTANT STAPHYLOCOCCUS AUREUS (A) 10/06/2018 4:[address] [facility] SPECIMEN FROM INTERNAL NOSE / Unknown 10/05/2018 1:37 PM CDT 10/05/2018 1:44 PM CDT us Taz Kelley MD MICROBIOLOGY - GENERAL KAITLIN CONTRERAS Final Result [facility] [address] [place] [address], * (ABNORMAL) CBC, AUTO, NO DIFF (10/05/2018 1:37 PM CDT) WBC 5.2 4.4 - 11.0 x10'3/uL 10/05/2018 2:[address] [facility] RBC 4.24(L) 4.50 - 5.10 x10'6/uL 10/05/2018 2:[address] [facility] HGB 12.3 12.3 - 15.3 G/DL 10/05/2018 2:[address] [facility] HCT 38.3 35.9 - 44.6 % 10/05/2018 2:[address] [facility] MCV 90.3 80.0 - 96.0 FL 10/05/2018 2:[address] [facility] MCH 29.0 25.3 - 30.9 PG 10/05/2018 2:[address] [facility] MCHC 32.1 31.0 - 34.1 G/DL 10/05/2018 2:[address] [facility] RDW 16.3(H) 12.4 - 15.1 % 10/05/2018 2:[address] [facility] PLT 263 151 - 353 x10'3/uL 10/05/2018 2:[address] [facility] MPV 11.6 9.6 - 12.0 FL 10/05/2018 2:[address] [facility] 10/05/2018 1:37 PM CDT us Taz Kelley MD LABORATORY Final Resul t [facility] [address] [place] [address], [place] [phone] * (ABNORMAL) BASIC METABOLIC PANEL (10/05/2018 1:37 PM CDT) GLUCOSE 112(H) 70 - 99 MG/DL 10/05/2018 2:[address] [facility] BUN 20(H) 7 - 18 MG/DL 10/05/2018 2:[address] [facility] CREATININE S/P/B 1.12(H) 0.55 - 1.02 MG/DL 10/05/2018 2:[address] [facility] SODIUM S/P/B 141 136 - 145 MMOL/L 10/05/2018 2:[address] [facility] POTASSIUM S/P/B 4.5 3.5 - 5.1 MMOL/L 10/05/2018 2:[address] [facility] CHLORIDE S/P/B 105 100 - 108 MMOL/L 10/05/2018 2:[address] [facility] CO2 26.5 21 - 32 MMOL/L 10/05/2018 2:[address] [facility] CALCIUM S/P/B 9.5 8.5 - 10.1 MG/DL 10/05/2018 2:[address] [facility] ANION GAP 9.5 5 - 15 MMOL/L 10/05/2018 2:[address] [facility] BUN CREATININE RATIO 17.9 6 - 26 10/05/2018 2:[address] [facility] EGFR NON-AFR. AMER. 49(L) >90 ML/MIN/1.7 3 M2 10/05/2018 2:[address] [facility] EGFR AFR. AMER. 57(L) >90 ML/MIN/1.7 3 M2 10/05/2018 2:[address] [facility] Comment: NOTE: eGFR is not calculated for patients <18 years of age. This is an estimated GFR (CKD EPI) and should not be used for calculating drug doses. 10/05/2018 1:37 PM CDT us Taz Kelley MD LABORATORY Final Resul t [facility] [address] [place] [address], documented in this encounter Visit Diagnoses Diagnosis Preop testing- Primary Preoperative examination, unspecified Preop testing Preoperative examination, unspecified documented in this encounter Additional Health Concerns Infection Onset Date Last Indicated Resolved Time MRSA Comment:10/05/18- positive MRSA screen 10/12/2018 10/12/2018 ESBL - Extended Spectrum Bet a-lactamase Comment:10/11/21 urine (JK) 10/18/22 urine (JK) 10/13/2021 10/18/2022 documented as of this encounter Care Teams Network Technician Relationship Specialty Start Date End Date Racheal Avelar MD PCP - General INTERNAL MEDICINE 12/17/17 04/29/22 [place] [address] [place] [address] PCP - General FAMILY PRACTICE 04/30/22 12/25/22 Anton Silva MD [address] [place] [address] PCP - General INTERNAL MEDICINE 01/01/24 Abdiel Santamaria MD [facility]. [address] [place] [address] [place] Bioassayist INTERVENTIONAL CARDIOLOGY 10/08/18 documented as of this encounter
--- OUTSIDE RECORDS SUMMARY | 2024-11-29 15:03 | XMS_ITS | Clinical Summary ---
Author Organization [facility] Address [facility] [place] [address] Care Team Providers Care Sanipractic Physician Name Role Phone Abdiel Santamaria MD Unavailable [phone] Anton Silva MD Primary Care Provider [phone] Allergies Active Allergy Reactions Criticality Noted Date [...] with fat layer exposed without varicose veins ([facility]) 02/11/2022 Congestion of nasal sinus 04/19/2021 Lymphadenitis 07/15/2017 GERD (gastroesophageal reflux disease) 7 Pulmonary nodule 07/17/2015 Low back pain 11/28/2014 Type 2 diabetes mellitus wit hout complication, with long-term current use of insulin ([facility]) 10/17/2014 Generalized osteoarthritis of multiple sites PHYLICIA [...] Comments Blood Pressure 162/87 01/29/2024 10:53 AM BRUSHING OPERATOR Pulse 63 01/29/2024 10:53 AM BRUSHING OPERATOR Temperature 37.1 C (98.7 F) 01/20/2024 8:50 AM BRUSHING OPERATOR Respiratory Rate 20 01/20/2024 11:23 AM BRUSHING OPERATOR Oxygen Saturation 97% 01/29/2024 10:53 AM BRUSHING OPERATOR Inhaled Oxygen Concentration - - Weight 154.2 kg (340 lb) 01/15/2024 12:01 AM BRUSHING OPERATOR Height 157.5 cm (5' 2) 01/29/2024 10:53 AM BRUSHING OPERATOR Body Mass Index 62.19 01/15/2024 12:01 AM BRUSHING OPERATOR Plan of Treatment Health Maintenance Due Date Last Done Comments [...] 02/11/2022, 03/0 04/2021, 12/26/2020, Additional history exists PHQ-2 (Physician [place]) 03/10/2024 COVID-19 Vaccine ( season) 2024 Pneumococcal Vaccine: 50+ Years Completed 01/14/2018, 07/15/2012 [...] Comments LIPID PANEL Routine 02/11/2022 3:16 PM BRUSHING OPERATOR Mixed hyperlipidemia HEMOGLOBIN, GLYCOSYLATED Routine 02/11/2022 3:16 PM BRUSHING OPERATOR Elevated glucose HEPATITIS C ANTIBODY Routine 08/25/2019 6:14 PM CDT Need for hepatitis C screening test COLOGUARD (SCAN ORDER) Routine 09/15/2018 from Last 3 Months or Most Recently Relevant to Health Maintenance Results * (ABNORMAL) HEMOGLOBIN, GLYCOSYLATED (02/11/2022 3:16 PM BRUSHING OPERATOR) HGB A1C 6.1(H) <5.7 % 02/11/2022 7:39 PM BRUSHING OPERATOR [facility] Comment: INCREASED RISK OF DIABETES <5.7% NON-DIABETES 5.7-6.4% INCREASED RISK FOR FUTURE DIABETES > OR = 6.5 CONSISTENT WITH DIABETES STANDARDS OF MEDICAL CARE IN DIABETES-2010 DIABETES CARE, 33(SUPP 1): S1-S61,2009 ESTIMATED AVG GLUCOSE 128 mg/dL 02/11/2022 7:39 PM BRUSHING OPERATOR [facility] 02/11/2022 3:16 PM BRUSHING OPERATOR us Racheal Avelar MD LABORATORY Final Result [facility] [address] [place] [address], [place] [phone] * (ABNORMAL) LIPID PANEL (02/11/2022 3:16 PM BRUSHING OPERATOR) CHOLESTEROL 247(H) <200.0 MG/DL 02/11/2022 7:56 PM [facility] TRIGLYCERIDES 156(H) <150 MG/DL 02/11/2022 7:56 PM [facility] HDL 56 >40.0 MG/DL 02/11/2022 7:56 PM [facility] LDL (CALCULATED) 160(H) <100 MG/DL 02/11/2022 7:56 PM [facility] NON HDL CHOLESTEROL 191(H) <130 MG/DL 02/11/2022 7:56 PM [facility] CHOL/HDL RATIO 4.4 0.0 - 4.5 02/11/2022 7:56 PM [facility] VLDL CALCULATION 31 5 - 55 MG/DL 02/11/2022 7:56 PM [facility] LIPID INTERPRETATION 02/11/2022 7:56 PM [facility] Comment: [facility] CONCENSUS REPORT RECOMMENDATIONS: ADULT CHILD LOW RISK: CHOLESTEROL <200 <170 TRIGLYCERIDE <150 --- HDL >=60 --- LDL <100 <110 BORDERLINE: CHOLESTEROL 200-239 170-199 TRIGLYCERIDE 150-199 --- HDL 40-59 --- LDL 100-159 110-129 HIGH RISK: CHOLESTEROL >=240 >=200 TRIGLYCERIDE >=200 --- HDL <40 --- LDL >=160 >=130 02/11/2022 3:16 PM BRUSHING OPERATOR Racheal Avelar MD LABORATORY Final Result [facility] [address] [place] [address], [place] [phone] * HEPATITIS C ANTIBODY (08/25/2019 6:14 PM CDT) HEPATITIS C AB NON-REACTI VE NON-REACTI VE 08/26/2019 10:28 AM CDT [facility] 08/25/2019 6:14 PM CDT Racheal Avelar MD LABORATORY Final Result [facility] [address] [place] [address], [place] [phone] * COLOGUARD (SCAN) (09/15/2018) COLOGUARD NEG Stool specimen (specimen) 09/15/2018 us Documents Scanned SCANNING Edited Result - Final from Last 3 Months or Most Recently Relevant to Health Maintenance Additional Health Concerns Infection Onset Date Last Indicated MRSA Comment:10/05/18- positive MRSA screen 10/12/2018 10/12/2018 ESBL - Extended Spectrum Bet a-lactamase Comment:10/11/21 urine (JK) 10/18/22 urine (JK) 10/13/2021 10/18/[address] [place] [address] [place] [address] Advance Directives * Full Code (Latest Code Status on File) Date Activated Date Inactivated Comments 10/31/2022 3:12 PM 01/20/2024 8:24 AM * Full Code Date Activated Date Inactivated Comments 09/02/2022 1:14 PM 10/31/2022 3:12 PM Care Teams Sanipractic Physician Relationship Specialty Start Date End Date Anton Sliva MD [address] [place] [address] PCP - General INTERNAL MEDICINE 01/01/24 Abdiel Santamaria MD [facility] [address] [place] [address] [employer] Transactions Attorney INTERVENTIONAL CARDIOLOGY 10/08/18
== END 2024-11-29 14:43 | disposition home or self-care (01) ==
PROVIDERS: PCP Internal Medicine; Visit Provider Internal Medicine
DX: M79.604 Pain in right leg (principal); M79.605 Pain in left leg; F09 Unspecified mental disorder due to known physiological condition; I10 Essential (primary) hypertension; E11.9 Type 2 diabetes mellitus without complications; E03.9 Hypothyroidism, unspecified; R60.9 Edema, unspecified
CPT/HCPCS: 93970

== ENCOUNTER 2025-02-14 16:00 | Outpatient (CLI) | payer MEDICARE, SELFPAY ==
--- NOTE | ~2025-02-14 | XR_ITS ---
EXAMINATION: XR humerus LT, 02/14/2025 16:30 PROCUREMENT BUYER HISTORY: M25.512 - Pain in left shoulder COMPARISON: No comparisons available. Findings: No acute fracture or malalignment. Moderate degenerative changes Soft tissues unremarkable. Impression: No acute fracture or malalignment. Reviewed, dictated and finalized at location P. UREMENT BUYER Impression: No acute fracture or malalignment.
--- NOTE | ~2025-02-14 | XR_ITS ---
XR cervical spine 4-5V Indication: M25.512 - Pain in left shoulder Comparison: None Findings: Grade 1 anterolisthesis of C4 on C5, no fracture is identified. Moderate osteopenia. Moderate loss of disc height at C5-6 and C6-7. Soft tissues unremarkable Impression: No acute abnormality. Reviewed, dictated and finalized at location P. NING CHECKER Impression: No acute abnormality.
--- NOTE | ~2025-02-14 | XR_ITS ---
EXAMINATION: XR shoulder LT min 2V DATE: 02/14/2025 16:39 INDICATION: Pain TECHNIQUE: 3 views of the left shoulder were obtained. COMPARISON: None. FINDINGS: Diffusely osteopenic bones. No acute fracture or dislocation. Mild calcific tendinitis at the insertion of supraspinatus. IMPRESSION: 1. No acute bony lesions. 2. Mild calcific tendinitis. 3. Osteopenic bones. Please correlate with DEXA densitometry. Reviewed, dictated and finalized at location T. SURY ACCOUNTANT
== END 2025-02-14 16:01 | disposition home or self-care (01) ==
PROVIDERS: PCP Internal Medicine; Visit Provider Internal Medicine
DX: M75.32 Calcific tendinitis of left shoulder (principal); M85.88 Other specified disorders of bone density and structure, other site
CPT/HCPCS: 72050; 73030; 73060